=== PATIENT | male | born 1955 | race Caucasian/White ===

== ENCOUNTER 2017-01-08 21:03 | Emergency (ER) | payer MEDICARE, MEDICAID ==
[~2017-01-08] VITALS: Ht 172.7 cm; Wt 88.0 kg
[~2017-01-08 21:03] MED LIST: CITA20TA4 PO; DILT240C7 PO; DIPH2%T PO; LORTA5 PO; LOSA50TA PO; METO100T PO; RENATAB5 PO; SENS60TA PO; SEVEL800 PO; TRAZ100 PO
[2017-01-08 21:14] VITALS: BP 125/80; PULSE 129; RESP 18; TEMP 98.5
[2017-01-08] MEDS ORDERED: METOCLOPRAMIDE HCL 10 MG/2 ML VIAL IV PUSH ONE (21:15)
--- NOTE | 2017-01-08 21:17 | PD ---
HPI Chief Complaint: nausea and vomiting Time Seen by Provider: 21:08 Travel History International Travel<30 days: No Contact w/Intl Traveler<30days: No Traveled to known affect area: No History of Present Illness HPI 61-year-old male with history of ESRD on HD (MWF), A. fib, brought in by ambulance from home for evaluation of nausea, vomiting, diarrhea, and A. fib with RVR. Symptoms started this afternoon after dialysis. Patient was given 4 mg of IV Zofran by EMS without improvement in nausea. Emesis and bowel movements are nonbloody. He denies fevers. No chest pain or dyspnea. He is having intermittent epigastric abdominal discomfort, currently no abdominal pain. Reports that 2 days ago, someone he is living with had similar symptoms. PFSH Past Medical History Hx Anticoagulant Therapy: Yes Arthritis: No Asthma: No Atrial Fibrillation: No Autoimmune Disease: No Blood Disorders: No Anxiety: Yes Depression: Yes Heart Rhythm Problems: Yes Cancer: No Cardiovascular Problems: Yes (CVA ,[place]) High Cholesterol: No Chemotherapy: No Chest Pain: No Congestive Heart Failure: Yes COPD: No Cerebrovascular Accident: Yes Dementia: Yes Diabetes: No Dialysis: Yes ([facility]) Diminished Hearing: No Endocrine: No Gastrointestinal Disorders: No GERD: No Glaucoma: No Genitourinary: No Headaches: No Hepatitis: No Hiatal Hernia: No Hypertension: Yes Immune Disorder: No Implanted Vascular Access Dvce: Yes (R ANTERIOR CHEST) Kidney Stones: No Musculoskeletal: No Neurologic: Yes Psychiatric: Yes Reproductive: No Respiratory: Yes Migraines: No Myocardial Infarction: Yes Radiation Therapy: No Renal Failure: Yes Seizures: No Sickle Cell Disease: No Sleep Apnea: No Thyroid Disease: No Ulcer: No Past Surgical History Abdominal Surgery: No AICD: No Arteriovenous Shunt: Yes (Left forearm; AV FISTULA) Body Medical Devices: L AV GRAFT SHUNT - STATES REMOVED 12/01 AND VEIN GRAFT PLACED Cardiac Surgery: No Ear Surgery: No Endocrine Surgery: No Eye Surgery: No Genitourinary Surgery: No Gynecologic Surgery: No Insulin Pump: No Joint Replacement: No Oral Surgery: No Pacemaker: No Thoracic Surgery: No Other Surgery: Yes (lfa shunt, r shoulder surgery) Social History Alcohol Use: No Tobacco Use: No (never) Substance Use: No Allergies-Medications (Allergen,Severity, Reaction): Coded Allergies: Bees (Verified Allergy, Severe, Anaphylaxis, 01/08/17) *MDRO Multi-Drug Resistant Organism (Verified Adverse Reaction, Unknown, ) MRSA (leg/groin abscess) - 2006 *MRSA PCR negative 11/03/15 & 11/05/15. Pt does not require isolation for hx of MDRO prior to 11/05/15.* Uncoded Allergies: Contac cold medicine (Allergy, Severe, Hives, 01/08/17) allergy Reported Meds & Prescriptions Reported Meds & Active Scripts Active Zofran Odt (Ondansetron Odt) 4 Mg Tab 4 Mg SL Q8HR PRN Reported Diphenhydramine (Diphenhydramine HCl) 25 Mg Cap 25 Mg PO Q12H PRN Trazodone (Trazodone HCl) 100 Mg Tab 200 Mg PO HS PRN Sensipar (Cinacalcet) 60 Mg Tab 120 Mg PO HS Renvela (Sevelamer Carbonate) 800 Mg Tab 800 Mg PO TID Jennifer-Phani (B-Complex W/ C & Folic Acid) 1 Tab 1 Tab PO DAILY Lopressor (Metoprolol Tartrate) 100 Mg Tab 100 Mg PO BID Losartan (Losartan Potassium) 50 Mg Tab 50 Mg PO DAILY Diltiazem ER 12 HR (Diltiazem HCl) 120 Mg Caper 240 Mg PO DAILY Citalopram (Citalopram Hydrobromide) 20 Mg Tab 20 Mg PO DAILY Review of Systems Except as stated in HPI: all other systems reviewed are Neg Physical Exam Narrative GENERAL: Well-developed, well-nourished, comfortable, no acute distress. SKIN: Focused skin assessment warm/dry. HEAD: Atraumatic. Normocephalic. EYES: Pupils equal and round. No scleral icterus. No injection or drainage. ENT: No nasal bleeding or discharge. Mucous membranes pink and dry. NECK: Trachea midline. No JVD. CARDIOVASCULAR: Irregularly irregular, tachycardic. Left upper arm dialysis fistula with thrill and bruit. RESPIRATORY: No accessory muscle use. Clear to auscultation. Breath sounds equal bilaterally. GASTROINTESTINAL: Abdomen soft, non-tender, nondistended. Normal bowel sounds. MUSCULOSKELETAL: No obvious deformities. No clubbing. No cyanosis. No edema. NEUROLOGICAL: Awake and alert. No obvious cranial nerve deficits. Motor grossly within normal limits. Normal speech. PSYCHIATRIC: Appropriate mood and affect; insight and judgment normal. Data Data Last Documented VS Vital Signs Date Time Temp Pulse Resp B/P Pulse Ox O2 Delivery O2 Flow Rate FiO2 01/08/17 22:50 105 16 134/77 99 Nasal Cannula 2 01/08/17 21:14 98.5 Orders Complete Blood Count With Diff (01/08/17 21:12) Comprehensive Metabolic Panel (01/08/17 21:12) Lipase (01/08/17 21:12) Prothrombin Time / Inr (Pt) (01/08/17 21:12) Act Partial Throm Time (Ptt) (01/08/17 21:12) Iv Access Insert/Monitor (01/08/17 21:12) Ecg Monitoring (01/08/17 21:12) Oximetry (01/08/17 21:12) Sodium Chloride 0.9% Flush (Ns Flush) (01/08/17 21:15) Electrocardiogram (01/08/17 21:12) Metoclopramide Inj (Reglan Inj) (01/08/17 21:15) Influenzae A/B Antigen (01/08/17 21:13) Diltiazem Inj (Cardizem Inj) (01/08/17 21:45) Diltiazem Inj (Cardizem Inj) (01/08/17 22:45) Diltiazem Cd (Cardizem Cd) (01/08/17 23:45) Diltiazem Inj (Cardizem Inj) (01/09/17 00:15) Sodium Polysty Sulfate Liq (Kayexalate L (01/09/17 01:30) Labs Laboratory Tests Test 01/08/17 01/09/17 22:05 00:12 White Blood Count 15.5 TH/MM3 Red Blood Count 5.14 MIL/MM3 Hemoglobin 15.0 GM/DL Hematocrit 46.5 % Mean Corpuscular Volume 90.4 FL Mean Corpuscular Hemoglobin 29.1 PG Mean Corpuscular Hemoglobin 32.2 % Concent Red Cell Distribution Width 16.2 % Platelet Count 251 TH/MM3 Mean Platelet Volume 7.3 FL Neutrophils (%) (Auto) 93.3 % Lymphocytes (%) (Auto) 0.8 % Monocytes (%) (Auto) 4.1 % Eosinophils (%) (Auto) 0.9 % Basophils (%) (Auto) 0.9 % Neutrophils # (Auto) 14.5 TH/MM3 Lymphocytes # (Auto) 0.1 TH/MM3 Monocytes # (Auto) 0.6 TH/MM3 Eosinophils # (Auto) 0.1 TH/MM3 Basophils # (Auto) 0.1 TH/MM3 CBC Comment DIFF FINAL Differential Comment Prothrombin Time 12.7 SEC Prothromb Time International 1.1 RATIO Ratio Activated Partial 26.7 SEC Thromboplast Time Sodium Level 136 MEQ/L Potassium Level 6.1 MEQ/L Chloride Level 101 MEQ/L Carbon Dioxide Level 25.5 MEQ/L Anion Gap 10 MEQ/L Blood Urea Nitrogen 22 MG/DL Creatinine 6.86 MG/DL Estimat Glomerular Filtration 8 ML/MIN Rate Random Glucose 98 MG/DL Calcium Level 9.0 MG/DL Total Bilirubin 0.7 MG/DL Aspartate Amino Transf 10 U/L (AST/SGOT) Alanine Aminotransferase 23 U/L (ALT/SGPT) Alkaline Phosphatase 144 U/L Total Protein 9.0 GM/DL Albumin 4.0 GM/DL Lipase 209 U/L [facility] Medical Decision Making Medical Screen Exam Complete: Yes Emergency Medical Condition: Yes Differential Diagnosis Gastric gastritis, enteritis, A. fib RVR, metabolic abnormality Narrative Course Initial vital signs show heart rate 129, blood pressure 125/80, pulse ox 98% on room air, oral temp of 98.5F. CBC shows WBC 15.5, hemoglobin 15, hematocrit 46.5, platelets 251, neutrophils 93.3%. CMP is remarkable for potassium 6.1, BUN 22, creatinine 6.86, GFR 8, otherwise unremarkable. Patient was given 3 doses of 10 mg of IV Cardizem each time with a transient improvement in heart rate. After the third dose he was given a dose of oral long-acting Cardizem after his nausea was controlled with Reglan. Patient was made aware of all findings. He states he is feeling much improved. I told him I would like to admit him for further treatment of his hyperkalemia and A. fib with RVR with acute on chronic renal insufficiency. The patient is adamant that he does not wish to stay in the hospital. He would like to leave AMA. He has the capacity to make the decision to leave AMA. He understands that there are risks to leaving AMA including but not limited to , cardiac arrest, permanent disability. He is willing to take these risks. He was told that he could return to the emergency department at any time and should return should he have any concerning symptoms. PMD follow-up this week. He was given a dose of kayexylate for his hyperkalemia. AMA: The risks of leaving against medical advice without further evaluation treatment were discussed with the patient. These risks include cardiac dysfunction, cardiac dysrhythmia, possible heart attack, possible stroke or . The patient indicated understanding of these risks and appeared to have the capacity to make this decision. Diagnosis Primary Impression: Left against medical advice Additional Impressions: Nausea and vomiting Qualified Code: R11.2 - Non-intractable vomiting with nausea, unspecified vomiting type Hyperkalemia Chronic renal insufficiency Qualified Code: N18.9 - Chronic renal insufficiency, unspecified stage Atrial fibrillation with RVR Referrals: Primary Care Physician 1 day Additional Instructions: Follow-up with your primary care physician this week. Follow-up with your regularly scheduled dialysis. Return to the emergency department for worsening symptoms or any other concerns as discussed. Scripts Ondansetron Odt (Zofran Odt)4 Mg Tab4 Mg SL Q8HR PRN (Nausea/Vomiting) #30 TAB Ref 0 Prov:Tobi Cordova MD 01/09/17 Disposition: 01 DISCHARGE HOME Condition: Tobi Capps MD Jan 08, 2017 21:16 Disposition: 01 DISCHARGE HOME Condition: Tobi Capps MD Jan 08, 2017 21:16
[2017-01-08] MEDS ORDERED: DILTIAZEM HCL 25 MG/5 ML VIAL IV ONE ×2 (21:45→22:45)
[2017-01-08] MEDS: SODIUM CHLORIDE 0.9% FLUSH 10 ML FLUSH IV FLUSH PRN (22:03)
[2017-01-08 22:05] VITALS: PULSE 122; RESP 20; O2SAT 98
[2017-01-08 22:24] LABS: AUTOMATED NEUTROPHIL # 14.5 TH/MM3 (1.8-7.7); BASOPHIL # 0.1 TH/MM3 (0-0.2); BASOPHIL % 0.9 % (0.0-2.0); EOSINOPHIL # 0.1 TH/MM3 (0-0.4); EOSINOPHIL % 0.9 % (0.0-4.0); HEMATOCRIT 46.5 % (39.0-51.0); HEMO FLAGS DIFF FINAL; LYMPH % 0.8 % (9.0-44.0); LYMPHOCYTE # 0.1 TH/MM3 (1.0-4.8); MEAN CELL VOLUME 90.4 FL (80.0-100.0); MEAN CORPUSCULAR HEMOGLOBIN 29.1 PG (27.0-34.0); MEAN CORPUSCULAR HGB CONC 32.2 % (32.0-36.0); MONO % 4.1 % (0.0-8.0); NEUT % 93.3 % (16.0-70.0); PLATELET COUNT 251 TH/MM3 (150-450); RED BLOOD COUNT 5.14 MIL/MM3 (4.50-5.90); RED CELL DISTRIBUTION WIDTH 16.2 % (11.6-17.2); WHITE BLOOD COUNT 15.5 TH/MM3 (4.0-11.0)
[2017-01-08 22:34] LABS: APTT (PATIENT) 26.7 SEC (24.3-30.1); INTERNATIONAL NORMALIZED RATIO 1.1 RATIO; PROTHROMBIN TIME - PATIENT 12.7 SEC (9.8-11.6)
[2017-01-08 22:50] VITALS: BP 134/77; PULSE 105; RESP 16; O2SAT 99
[2017-01-08] MEDS ORDERED: DILTIAZEM-CD 240 MG CAP ER PO ONE (23:45)
[2017-01-09] MEDS ORDERED: DILTIAZEM HCL 25 MG/5 ML VIAL IV ONE (00:15)
[2017-01-09] MEDS: SODIUM CHLORIDE 0.9% FLUSH 10 ML FLUSH IV FLUSH PRN (00:18)
[2017-01-09 00:56] LABS: ANION GAP 10 MEQ/L (5-15); AST (GOT) 10 U/L (15-37); BICARBONATE 25.5 MEQ/L (21.0-32.0); BLOOD UREA NITROGEN 22 MG/DL (7-18); CHLORIDE 101 MEQ/L (98-107); GLOMERULAR FILTRATION RATE 8 ML/MIN (>89); POTASSIUM 6.1 MEQ/L (3.5-5.1); SODIUM (NA) 136 MEQ/L (136-145)
[2017-01-09 00:59] LABS: ALKALINE PHOSPHATASE 144 U/L (45-117); ALT (GPT) 23 U/L (12-78); TOTAL BILIRUBIN ADULT 0.7 MG/DL (0.2-1.0)
[2017-01-09] MEDS ORDERED: ZOFR4TAB3 SL (01:27)
[2017-01-09] MEDS ORDERED: SODIUM POLYSTYRENE SULFONATE SUSP 15 GM/60 ML CUP PO ONE (01:30)
[2017-01-09] MEDS ORDERED: CITA20TA4 PO (02:03)
[2017-01-09] MEDS ORDERED: TRAZ100T4 PO (02:03)
[2017-01-09] MEDS ORDERED: RENATAB5 PO (02:03)
[2017-01-09] MEDS ORDERED: DILT120C9 PO (02:03)
[2017-01-09] MEDS ORDERED: SENS60TA PO (02:03)
[2017-01-09] MEDS ORDERED: DIPH25CA PO (02:03)
[2017-01-09] MEDS ORDERED: SEVEL800 PO (02:03)
[2017-01-09] MEDS ORDERED: METO-338 PO (02:03)
[2017-01-09] MEDS ORDERED: LOSA50TA PO (02:03)
--- NOTE | 2017-01-10 16:02 | EKG ---
Date Performed: 01/08/2017 Time Performed: 22:29:53 PTAGE: 61 years EKG: ATRIAL FIBRILLATION WITH RAPID VENTRICULAR RESPONSE BORDERLINE RIGHT AXIS DEVIATION NONSPEC IFIC ST & T-WAVE ABNORMALITY When compared to previous tracing, ventricular response atrial Fibrillat ion is faster, ST-T changes slightly more prominant. ABNORMAL RHYTHM ECG PREVIOUS TRACING : 12/05/2015 11.17 DOCTOR: Raffaele Land Interpretating Date/Time 01/10/2017 16:01:38
== END 2017-01-09 02:55 | disposition left against medical advice (07) ==
LOC: NEPC 21:03
DX: R11.2 Nausea with vomiting, unspecified (principal); E87.5 Hyperkalemia; N18.9 Chronic kidney disease, unspecified; I48.91 Unspecified atrial fibrillation; R19.7 Diarrhea, unspecified; F41.9 Anxiety disorder, unspecified; I50.9 Heart failure, unspecified; Z86.73 Personal history of transient ischemic attack (TIA), and cerebral infarction without residual deficits; F03.90 Unspecified dementia, unspecified severity, without behavioral disturbance, psychotic disturbance, mood disturbance, and anxiety; I12.0 Hypertensive chronic kidney disease with stage 5 chronic kidney disease or end stage renal disease; I25.2 Old myocardial infarction; R94.31 Abnormal electrocardiogram [ECG] [EKG]
CPT/HCPCS: 80053; 83690; 85025; 85610; 85730; 87804; 93005; 96374; 96375; 96376; 99284; J2765

== ENCOUNTER 2017-02-08 16:35 | Inpatient (IN) | payer MEDICARE, MEDICAID ==
[~2017-02-08] VITALS: Ht 165.1 cm; Wt 87.5 kg
[~2017-02-08 16:35] MED LIST changes: +DILT120C9 PO; -DILT240C7 PO; -DIPH2%T PO; +DIPH25CA PO; -LORTA5 PO; +METO-338 PO; -METO100T PO; -TRAZ100 PO; +TRAZ100T4 PO; +ZOFR4TAB3 SL
[2017-02-08 17:31] VITALS: BP 101/61; PULSE 52; RESP 16; TEMP 98; O2SAT 95
[2017-02-08] MEDS ORDERED: SODIUM CHLOR 0.9% 1000 ML INJ 1,000 ML IV SCH (18:08)
--- NOTE | 2017-02-08 18:39 | PD ---
HPI Chief Complaint: Abdominal Pain Time Seen by Provider: 18:36 Travel History International Travel<30 days: No Contact w/Intl Traveler<30days: No Traveled to known affect area: No History of Present Illness HPI 61-year-old male that presents to the ED for evaluation of nausea and vomiting. Patient has had nausea and vomiting for the past day. Patient has a history of ESRD getting hemodialysis every Wednesday and Wednesday. Patient in our receive his dialysis today secondary to not feeling well. He denies any abdominal pain. Per patient he did something for his nausea with no relief. Denies any abdominal pain. No diarrhea. No chest pain or shortness of breath. Per patient his main symptom is the vomiting. History of MRSA. Denies any fevers chills or sweats. No other medical issues at this time. He states compliance with medications. Again patient denies any pain of any kind. PFSH Past Medical History Hx Anticoagulant Therapy: Yes Arthritis: No Asthma: No Atrial Fibrillation: Yes Autoimmune Disease: No Blood Disorders: No Anxiety: Yes Depression: Yes Heart Rhythm Problems: Yes Cancer: No Cardiovascular Problems: Yes (CVA ,[place]) High Cholesterol: No Chemotherapy: No Chest Pain: No Congestive Heart Failure: Yes COPD: No Cerebrovascular Accident: Yes Dementia: Yes Diabetes: No Dialysis: Yes ([facility]) Diminished Hearing: No Endocrine: No Gastrointestinal Disorders: No GERD: No Glaucoma: No Genitourinary: No Headaches: No Hepatitis: No Hiatal Hernia: No Hypertension: Yes Immune Disorder: No Implanted Vascular Access Dvce: Yes (R ANTERIOR CHEST) Kidney Stones: No Musculoskeletal: No Neurologic: Yes Psychiatric: Yes Reproductive: No Respiratory: Yes Migraines: No Myocardial Infarction: Yes Radiation Therapy: No Renal Failure: Yes Seizures: No Sickle Cell Disease: No Sleep Apnea: No Thyroid Disease: No Ulcer: No Past Surgical History Abdominal Surgery: No AICD: No Arteriovenous Shunt: Yes (Left forearm; AV FISTULA) Body Medical Devices: L AV GRAFT SHUNT - STATES REMOVED 12/01 AND VEIN GRAFT PLACED Cardiac Surgery: No Ear Surgery: No Endocrine Surgery: No Eye Surgery: No Genitourinary Surgery: No Gynecologic Surgery: No Insulin Pump: No Joint Replacement: No Oral Surgery: No Pacemaker: No Thoracic Surgery: No Other Surgery: Yes (lfa shunt, r shoulder surgery, vas cath to upper right chest) Social History Alcohol Use: Yes (1 beer every 6 months) Tobacco Use: No (never) Substance Use: No Allergies-Medications (Allergen,Severity, Reaction): Coded Allergies: Bees (Verified Allergy, Severe, Anaphylaxis, 02/08/17) *MDRO Multi-Drug Resistant Organism (Verified Adverse Reaction, Unknown, ) MRSA (leg/groin abscess) - 2006 *MRSA PCR negative 11/03/15 & 11/05/15. Pt does not require isolation for hx of MDRO prior to 11/05/15.* Uncoded Allergies: Contac cold medicine (Allergy, Severe, Hives, 01/08/17) allergy Reported Meds & Prescriptions Reported Meds & Active Scripts Active Zofran Odt (Ondansetron Odt) 4 Mg Tab 4 Mg SL Q8HR PRN Reported Diphenhydramine (Diphenhydramine HCl) 25 Mg Cap 25 Mg PO Q12H PRN Trazodone (Trazodone HCl) 100 Mg Tab 200 Mg PO HS PRN Sensipar (Cinacalcet) 60 Mg Tab 120 Mg PO HS Renvela (Sevelamer Carbonate) 800 Mg Tab 800 Mg PO TID Jennifer-Phani (B-Complex W/ C & Folic Acid) 1 Tab 1 Tab PO DAILY Lopressor (Metoprolol Tartrate) 100 Mg Tab 100 Mg PO BID Losartan (Losartan Potassium) 50 Mg Tab 50 Mg PO DAILY Diltiazem ER 12 HR (Diltiazem HCl) 120 Mg Caper 240 Mg PO DAILY Citalopram (Citalopram Hydrobromide) 20 Mg Tab 20 Mg PO DAILY Review of Systems Except as stated in HPI: all other systems reviewed are Neg Physical Exam Narrative GENERAL: SKIN: Warm and dry. Patient has a patent fistula on the left arm. HEAD: Atraumatic. Normocephalic. EYES: Pupils equal and round. No scleral icterus. No injection or drainage. ENT: No nasal bleeding or discharge. Mucous membranes pink and moist. Tongue is midline. No uvula deviation. NECK: Trachea midline. No JVD. CARDIOVASCULAR: Regular rate and rhythm. No murmurs, S3, S4. RESPIRATORY: No accessory muscle use. Clear to auscultation. Breath sounds equal bilaterally. GASTROINTESTINAL: Abdomen soft, non-tender, nondistended. Hepatic and splenic margins not palpable. MUSCULOSKELETAL: Extremities without clubbing, cyanosis, or edema. No obvious deformities. Full range of motion of the upper and lower extremities bilaterally. 2+ pulses bilaterally. NEUROLOGICAL: Awake and alert. No obvious cranial nerve deficits. Motor grossly within normal limits. Five out of 5 muscle strength in the arms and legs. Normal speech. PSYCHIATRIC: Appropriate mood and affect; insight and judgment normal. Data Data Last Documented VS Vital Signs Date Time Temp Pulse Resp B/P Pulse Ox O2 Delivery O2 Flow Rate FiO2 02/08/17 17:31 98.0 52 16 101/61 95 Room Air Orders Complete Blood Count With Diff (02/08/17 18:08) Comprehensive Metabolic Panel (02/08/17 18:08) Lipase (02/08/17 18:08) Lactic Acid (02/08/17 18:08) Urinalysis - C+S If Indicated (02/08/17 18:08) Iv Access Insert/Monitor (02/08/17 18:08) Ecg Monitoring (02/08/17 18:08) Oximetry (02/08/17 18:08) Sodium Chlor 0.9% 1000 Ml Inj (Ns 1000 M (02/08/17 18:08) Prothrombin Time / Inr (Pt) (02/08/17 18:08) Act Partial Throm Time (Ptt) (02/08/17 18:08) MDM Medical Decision Making Medical Screen Exam Complete: Yes Emergency Medical Condition: Yes Medical Record Reviewed: Yes Differential Diagnosis Nausea versus vomit versus electrolyte abnormality versus kidney failure versus CHF versus abdominal pain Narrative Course 61-year-old male that presents to the ED for evaluation of nausea and vomiting. Patient was properly examined and was found to have signs and symptoms consistent with nausea and vomiting. Unclear etiology. Labs and imaging ordered. Patient will be signed out to incoming provider pending disposition and treatment plan. Westley Zepeda February 08, 2017 18:39
[2017-02-08 18:55] LABS: AUTOMATED NEUTROPHIL # 7.2 TH/MM3 (1.8-7.7); BASOPHIL % 0.4 % (0.0-2.0); EOSINOPHIL % 0.2 % (0.0-4.0); HEMO FLAGS DIFF FINAL; LYMPH % 8.9 % (9.0-44.0); LYMPHOCYTE # 0.8 TH/MM3 (1.0-4.8); MEAN CELL VOLUME 91.1 FL (80.0-100.0); MEAN CORPUSCULAR HEMOGLOBIN 29.6 PG (27.0-34.0); MEAN CORPUSCULAR HGB CONC 32.5 % (32.0-36.0); MONO % 8.5 % (0.0-8.0); PLATELET COUNT 201 TH/MM3 (150-450); RED CELL DISTRIBUTION WIDTH 17.3 % (11.6-17.2); WHITE BLOOD COUNT 8.8 TH/MM3 (4.0-11.0)
[2017-02-08 19:19] LABS: APTT (PATIENT) 29.6 SEC (24.3-30.1); INTERNATIONAL NORMALIZED RATIO 1.5 RATIO; PROTHROMBIN TIME - PATIENT 16.9 SEC (9.8-11.6)
[2017-02-08 19:28] LABS: ALKALINE PHOSPHATASE 122 U/L (45-117); ALT (GPT) 70 U/L (12-78); ANION GAP 15 MEQ/L (5-15); AST (GOT) 69 U/L (15-37); BLOOD UREA NITROGEN 50 MG/DL (7-18); CHLORIDE 96 MEQ/L (98-107); GLOMERULAR FILTRATION RATE 5 ML/MIN (>89); POTASSIUM 6.4 MEQ/L (3.5-5.1); SODIUM (NA) 134 MEQ/L (136-145)
[2017-02-08 19:32] VITALS: BP 106/59; PULSE 59; RESP 20; TEMP 97.6; O2SAT 97
[2017-02-08] MEDS ORDERED: DEXTROSE 50% IN WATER 50 ML SYRINGE IV ONE (20:15)
[2017-02-08] MEDS ORDERED: INSULIN HUMAN REGULAR 1,000 UNITS/10 ML VIAL IV PUSH ONE (20:15)
[2017-02-08] MEDS ORDERED: RESP: ALBUTEROL 2.5 MG/3 ML NEB (SCH) NEB ONE (20:15)
--- NOTE | 2017-02-08 20:16 | RADRPT ---
EXAM DATE/TIME: 02/08/2017 20:13 [facility] COMPARISON: CHEST SINGLE AP, October 27, 2014, 17:20. INDICATIONS : Short of breath. MEDICAL HISTORY : Hypertension. SURGICAL HISTORY : AV fistula, left. Shoulder, right. ENCOUNTER: Initial ACUITY: 1 day PAIN SCORE: 0/10 LOCATION: Bilateral chest FINDINGS: A single view of the chest demonstrates cardiomegaly with central pulmonary vascular congestion. No c onsolidation or pleural effusion. Osseous structures are intact. CONCLUSION: Cardiomegaly with central pulmonary vascular congestion. Sacha Kumar MD on February 08, 2017 at 20:14 Board Certified Radiologist. This report was verified electronically.
[2017-02-08 20:22] VITALS: O2SAT 99
[2017-02-08] MEDS ORDERED: CALCIUM GLUCONATE INJ 1 GM in DEXTROSE 5% IN WATER 100ML INJ 100 ML IV ONE ×2 (20:45)
--- NOTE | 2017-02-08 21:17 | RADRPT ---
EXAM DATE/TIME: 02/08/2017 21:06 [facility] COMPARISON: No previous studies available for comparison. INDICATIONS : Upper quadrant pain with nausea. ORAL CONTRAST: No oral contrast ingested. RADIATION DOSE: 15.87 CTDIvol (mGy) MEDICAL HISTORY : Hypertension. Myocardial infarction. Congestive heart failure.CVA. Renal failure. Dialysis. SURGICAL HISTORY : None. ENCOUNTER: Initial ACUITY: 1 day PAIN SCALE: 5/10 LOCATION: Bilateral upper quadrant TECHNIQUE: Volumetric scanning of the abdomen and pelvis was performed. Using automated exposure control and ad justment of the mA and/or kV according to patient size, radiation dose was kept as low as reasonably achievable to obtain optimal diagnostic quality images. FINDINGS: LOWER LUNGS: The visualized lower lungs are clear. Cardiomegaly with coronary artery calcifications. LIVER: Homogeneous density without lesion. There is no dilation of the biliary tree. Multiple calcified gal lstones. Small amount of abdominal ascites. SPLEEN: Normal size without lesion. PANCREAS: Within normal limits. KIDNEYS: Multicystic renal disease. Numerous calcifications are present. There is no mass or hydronephrosis. ADRENAL GLANDS: Within normal limits. VASCULAR: There is no aortic aneurysm. BOWEL/MESENTERY: The stomach, small bowel, and colon demonstrate no acute abnormality. There is no free intraperitone al air or fluid. ABDOMINAL WALL: Within normal limits. RETROPERITONEUM: There is no lymphadenopathy. BLADDER: No wall thickening or mass. REPRODUCTIVE: Within normal limits. INGUINAL: There is no lymphadenopathy or hernia. MUSCULOSKELETAL: Within normal limits for patient age. CONCLUSION: 1. Multiple gallstones. 2. Small amount of abdominal ascites. 3. Multicystic renal disease. Sacha Kumar MD on February 08, 2017 at 21:12 Board Certified Radiologist. This report was verified electronically.
--- NOTE | 2017-02-08 23:02 | PD ---
Physical Exam Narrative Patient is a 61-year-old male who comes in complaining of nausea and vomiting. He has history of end-stage renal disease, normally dilated Wednesday, Wednesday, Wednesday. He missed dialysis today due to his nausea and vomiting. He was originally seen in triage by the PA where his workup was started. Data Data Last Documented VS Vital Signs Date Time Temp Pulse Resp B/P Pulse Ox O2 Delivery O2 Flow Rate FiO2 02/08/17 20:22 99 21 02/08/17 19:32 97.6 59 20 106/59 02/08/17 17:31 Room Air Orders Complete Blood Count With Diff (02/08/17 18:08) Comprehensive Metabolic Panel (02/08/17 18:08) Lipase (02/08/17 18:08) Lactic Acid (02/08/17 18:08) Urinalysis - C+S If Indicated (02/08/17 18:08) Iv Access Insert/Monitor (02/08/17 18:08) Ecg Monitoring (02/08/17 18:08) Oximetry (02/08/17 18:08) Sodium Chlor 0.9% 1000 Ml Inj (Ns 1000 M (02/08/17 18:08) Prothrombin Time / Inr (Pt) (02/08/17 18:08) Act Partial Throm Time (Ptt) (02/08/17 18:08) Electrocardiogram (02/08/17 ) Chest, Single Ap (02/08/17 ) Insulin Human Regular Inj (Novolin R Inj (02/08/17 20:15) Dextrose 50% In Bess (Syr) Inj (D50w (Syr (02/08/17 20:15) Albuterol Neb (Albuterol Neb) (02/08/17 20:15) Ct Abd/Pel W/O Iv Contrast (02/08/17 ) Calcium Gluconate Inj (Calcium Gluconate (02/08/17 20:45) Admit Order (Ed Use Only) (02/08/17 ) Labs Laboratory Tests Test 02/08/17 18:20 White Blood Count 8.8 TH/MM3 Red Blood Count 4.50 MIL/MM3 Hemoglobin 13.3 GM/DL Hematocrit 41.0 % Mean Corpuscular Volume 91.1 FL Mean Corpuscular Hemoglobin 29.6 PG Mean Corpuscular Hemoglobin 32.5 % Concent Red Cell Distribution Width 17.3 % Platelet Count 201 TH/MM3 Mean Platelet Volume 7.9 FL Neutrophils (%) (Auto) 82.0 % Lymphocytes (%) (Auto) 8.9 % Monocytes (%) (Auto) 8.5 % Eosinophils (%) (Auto) 0.2 % Basophils (%) (Auto) 0.4 % Neutrophils # (Auto) 7.2 TH/MM3 Lymphocytes # (Auto) 0.8 TH/MM3 Monocytes # (Auto) 0.7 TH/MM3 Eosinophils # (Auto) 0.0 TH/MM3 Basophils # (Auto) 0.0 TH/MM3 CBC Comment DIFF FINAL Differential Comment Prothrombin Time 16.9 SEC Prothromb Time International 1.5 RATIO Ratio Activated Partial 29.6 SEC Thromboplast Time Sodium Level 134 MEQ/L Potassium Level 6.4 MEQ/L Chloride Level 96 MEQ/L Carbon Dioxide Level 23.0 MEQ/L Anion Gap 15 MEQ/L Blood Urea Nitrogen 50 MG/DL Creatinine 10.73 MG/DL Estimat Glomerular Filtration 5 ML/MIN Rate Random Glucose 91 MG/DL Lactic Acid Level 3.8 mmol/L Calcium Level 8.0 MG/DL Total Bilirubin 1.0 MG/DL Aspartate Amino Transf 69 U/L (AST/SGOT) Alanine Aminotransferase 70 U/L (ALT/SGPT) Alkaline Phosphatase 122 U/L Total Protein 7.2 GM/DL Albumin 3.3 GM/DL Lipase 133 U/L [facility] Supervised Visit with MESFIN: No Narrative Course Exam shows no tenderness to the abdomen, it is soft and bowel sounds are present. Patient has several excoriations and scabs on his skin from scratching. Labs are concerning for an elevated creatinine to 10.7 as well as elevated potassium to 6.4. Patient treated with calcium gluconate, insulin, dextrose, albuterol. Kayexalate was held. Chest x-ray shows evidence of fluid overload. I spoke with Dr. Chisholm of nephrology who will arrange for dialysis. Patient was given Zofran for vomiting. We'll be placed in observation for further management. Diagnosis Primary Impression: Nausea and vomiting Qualified Code: R11.2 - Non-intractable vomiting with nausea, unspecified vomiting type Additional Impressions: Fluid overload Qualified Code: E87.70 - Hypervolemia, unspecified hypervolemia type Hyperkalemia Admitting Information Admitting Physician Requests: Observation Condition: Stable Gershen,Apple B MD February 08, 2017 23:02
[2017-02-08] MEDS ORDERED: ACETAMINOPHEN 325 MG TAB PO PRN ×2 (23:15→23:30)
[2017-02-08] MEDS ORDERED: SENNOSIDES 8.6 MG TAB PO PRN (23:15)
[2017-02-08] MEDS ORDERED: ONDANSETRON HCL 4 MG/2 ML VIAL IVP PRN (23:15)
[2017-02-08] MEDS ORDERED: NALOXONE HCL 0.4 MG/ML AMP IV PRN (23:15)
[2017-02-08] MEDS ORDERED: HEPARIN SODIUM - SQ 10,000 UNITS/ML VIAL SQ SCH (23:15)
[2017-02-08] MEDS ORDERED: SODIUM CHLORIDE 0.9% FLUSH 10 ML FLUSH IV FLUSH PRN ×2 (23:15→23:30)
[2017-02-08] MEDS ORDERED: GELATIN 12 MM/7 MM FOAM TOPICAL PRN (23:30)
[2017-02-08] MEDS ORDERED: diphenhydrAMINE HCL 25 MG CAP PO PRN (23:30)
[2017-02-08] MEDS ORDERED: NS 250 ML IV PRN (23:30)
[2017-02-08] MEDS ORDERED: HEPARIN SODIUM - IV 10,000 UNITS/10 ML VIAL IV FLUSH PRN (23:30)
[2017-02-08] MEDS ORDERED: NITROGLYCERIN 0.4 MG SL 25 TABS/BTL SL PRN (23:30)
[2017-02-08] MEDS ORDERED: SODIUM CHLOR 0.9% 1000 ML IV PRN ×2 (23:30)
[2017-02-08] MEDS ORDERED: ONDANSETRON HCL 4 MG/2 ML VIAL IV PRN (23:30)
[2017-02-08] MEDS ORDERED: cloNIDine HCL 0.1 MG TAB PO PRN (23:30)
[2017-02-08] MEDS ORDERED: ALBUMIN HUMAN 25% 25 GM/100 ML BAGP IV PRN (23:30)
[2017-02-08] MEDS ORDERED: GENTAMICIN SULFATE (DIALYSIS USE ONLY) 20 MG/2 ML VIAL OTHER PRN (23:30)
[2017-02-08] MEDS ORDERED: HEPARIN SODIUM - IV 10,000 UNITS/10 ML VIAL OTHER PRN (23:30)
[2017-02-08] MEDS ORDERED: MANNITOL 12.5 GM/50 ML VIAL IV PRN (23:30)
[2017-02-09 00:38] VITALS: BP 113/68; PULSE 83; RESP 20; O2SAT 98
[2017-02-09 02:58] LABS: BICARBONATE 25.9 MEQ/L (21.0-32.0); POTASSIUM 4.3 MEQ/L (3.5-5.1)
[2017-02-09 03:45] VITALS: BP 94/74; PULSE 85; RESP 18; TEMP 97.1; O2SAT 95
[2017-02-09 08:00] VITALS: BP 96/66; PULSE 87; RESP 18; TEMP 96.4; O2SAT 94
[2017-02-09] MEDS ORDERED: HEPARIN SODIUM - SQ 10,000 UNITS/ML VIAL SQ SCH (09:00)
[2017-02-09] MEDS ORDERED: SODIUM CHLORIDE 0.9% FLUSH 10 ML FLUSH IV FLUSH SCH (09:00)
--- NOTE | 2017-02-09 09:30 | HHI.HP ---
[facility] Physician Unknown Admission Diagnosis hyperkalemia Diagnoses: (1) Gastroenteritis, acute (2) Gastroenteritis, noninfectious (3) ESRD on hemodialysis (4) Hyperkalemia (5) Hypertension Chief Complaint: Emesis Travel History International Travel<30 Days: No Contact w/Intl Traveler <30 Da: No Traveled to Known Affected Are: No History of Present Illness 61-year-old man with a history of end-stage renal disease on hemodialysis 20 years presented to the ED yesterday for evaluation of an acute onset of to be history of multiple episodes of nonbloody vomiting without any diarrhea. Patient only reported abdominal cramping. He denies any sick contact. Patient had not gone for hemodialysis on Wednesday and was found to have elevated potassium. He was treated in the ED for hyperkalemia and nephrology was consulted and patient underwent hemodialysis yesterday. Today, during my encounter with patient reported improvement of emesis and denies any abdominal cramping. He had no GI bleed. Currently denies any chest pain or shortness of breath. Review of Systems Except as stated in HPI: all other systems reviewed are Neg Past Family Social History Past Medical History Hypertension CAD CHF COPD End-stage renal disease on hemodialysis History of CVAs Past Surgical History AV fistula placement Multiple shoulder procedures Reported Medications Diphenhydramine (Diphenhydramine HCl) 25 Mg Cap 25 Mg PO Q12H PRN Trazodone (Trazodone HCl) 100 Mg Tab 200 Mg PO HS PRN Sensipar (Cinacalcet) 60 Mg Tab 120 Mg PO HS Renvela (Sevelamer Carbonate) 800 Mg Tab 800 Mg PO TID Jennifer-Phani (B-Complex W/ C & Folic Acid) 1 Tab 1 Tab PO DAILY Lopressor (Metoprolol Tartrate) 100 Mg Tab 100 Mg PO BID Losartan (Losartan Potassium) 50 Mg Tab 50 Mg PO DAILY Diltiazem ER 12 HR (Diltiazem HCl) 120 Mg Caper 240 Mg PO DAILY Citalopram (Citalopram Hydrobromide) 20 Mg Tab 20 Mg PO DAILY Allergies: Coded Allergies: Bees (Verified Allergy, Severe, Anaphylaxis, 02/08/17) *MDRO Multi-Drug Resistant Organism (Verified Adverse Reaction, Unknown, ) MRSA (leg/groin abscess) - 2006 *MRSA PCR negative 11/03/15 & 11/05/15. Pt does not require isolation for hx of MDRO prior to 11/05/15.* Uncoded Allergies: Contac cold medicine (Allergy, Severe, Hives, 01/08/17) allergy Family History Father had colon cancer Social History Alcohol Use: Yes (1 beer every 6 months) Tobacco Use: No (never) Substance Use: No Physical Exam Vital Signs Vital Signs Date Time Temp Pulse Resp B/P Pulse Ox O2 Delivery O2 Flow Rate FiO2 02/09/17 08:00 96.4 87 18 96/66 94 02/09/17 03:45 97.1 85 18 94/74 95 02/09/17 00:38 83 20 113/68 98 02/08/17 20:22 99 21 02/08/17 19:32 97.6 59 20 106/59 97 02/08/17 17:31 98.0 52 16 101/61 95 Room Air Physical Exam GENERAL: This is a well-nourished, well-developed patient, in no apparent distress. SKIN: No rashes, ecchymoses or lesions. Cool and dry. HEAD: Atraumatic. Normocephalic. No temporal or scalp tenderness. EYES: Pupils equal round and reactive. Extraocular motions intact. No scleral icterus. No injection or drainage. ENT: Nose without bleeding, purulent drainage or septal hematoma. Throat without erythema, tonsillar hypertrophy or exudate. Uvula midline. Airway patent. NECK: Trachea midline. No JVD or lymphadenopathy. Supple, nontender, no meningeal signs. CARDIOVASCULAR: Regular rate and rhythm without murmurs, gallops, or rubs. RESPIRATORY: Clear to auscultation. Breath sounds equal bilaterally. No wheezes , rales, or rhonchi. GASTROINTESTINAL: Abdomen soft, non-tender, nondistended. No hepato-splenomegaly , or palpable masses. No guarding. MUSCULOSKELETAL: Extremities without clubbing, cyanosis, or edema. No joint tenderness, effusion, or edema noted. No calf tenderness. Negative Homans sign bilaterally. AV fistula in left upper extremity NEUROLOGICAL: Awake and alert. Cranial nerves II through XII intact. Motor and sensory grossly within normal limits. Five out of 5 muscle strength in all muscle groups. Normal speech. Laboratory Laboratory Tests Test 02/08/17 02/09/17 18:20 02:10 White Blood Count 8.8 Red Blood Count 4.50 Hemoglobin 13.3 Hematocrit 41.0 Mean Corpuscular Volume 91.1 Mean Corpuscular Hemoglobin 29.6 Mean Corpuscular Hemoglobin 32.5 Concent Red Cell Distribution Width 17.3 Platelet Count 201 Mean Platelet Volume 7.9 Neutrophils (%) (Auto) 82.0 Lymphocytes (%) (Auto) 8.9 Monocytes (%) (Auto) 8.5 Eosinophils (%) (Auto) 0.2 Basophils (%) (Auto) 0.4 Neutrophils # (Auto) 7.2 Lymphocytes # (Auto) 0.8 Monocytes # (Auto) 0.7 Eosinophils # (Auto) 0.0 Basophils # (Auto) 0.0 CBC Comment DIFF FINAL Differential Comment Prothrombin Time 16.9 Prothromb Time International 1.5 Ratio Activated Partial 29.6 Thromboplast Time Sodium Level 134 139 Potassium Level 6.4 4.3 Chloride Level 96 99 Carbon Dioxide Level 23.0 25.9 Anion Gap 15 14 Blood Urea Nitrogen 50 36 Creatinine 10.73 7.93 Estimat Glomerular Filtration 5 7 Rate Random Glucose 91 139 Lactic Acid Level 3.8 Calcium Level 8.0 8.5 Total Bilirubin 1.0 Aspartate Amino Transf 69 (AST/SGOT) Alanine Aminotransferase 70 (ALT/SGPT) Alkaline Phosphatase 122 Total Protein 7.2 Albumin 3.3 Lipase 133 Result Diagram: 02/08/17 1820 02/09/17 0210 Imaging Last Impressions Chest X-Ray 02/08/17 0000 Signed Impressions: Service Date/Time: Wednesday, February 08, 2017 20:13 - CONCLUSION: Cardiomegaly with central pulmonary vascular congestion. Sacha Kumar MD Abdomen/Pelvis CT 02/08/17 0000 Signed Impressions: Service Date/Time: Wednesday, February 08, 2017 21:06 - CONCLUSION: 1. Multiple gallstones. 2. Small amount of abdominal ascites. 3. Multicystic renal disease. Sacha Kumar MD Assessment and Plan Problem List: (1) Gastroenteritis, acute ICD Code: K52.9 Status: Acute (2) Gastroenteritis, noninfectious ICD Code: K52.9 Status: Acute (3) ESRD on hemodialysis ICD Code: N18.6 Status: Chronic (4) Hyperkalemia ICD Code: E87.5 Status: Acute Assessment and Plan 61-year-old man with Gastroenteritis, acute Gastroenteritis, noninfectious CT abdomen noted and review by me with finding of Multiple gallstones. 2. Small amount of abdominal ascites. 3. Multicystic renal disease; therefore will check abdominal/gallbladder ultrasound Resolved, continue with current conservative management End-stage renal disease on hemodialysis Patient had hemodialysis yesterday feb 08 2017, and management per nephrology HD on Wednesday Resume B complex, Sensipar and Renvela Hyperkalemia Resolved s/p treatment Hypertension Hold all oral antihypertensive medications 2/2 soft BP Physician Certification 2 Midnight Certification Type: Admission for Inpatient Services Order for Inpatient Services The services are ordered in accordance with Medicare regulations or non- Medicare payer requirements, as applicable. In the case of services not specified as inpatient-only, they are appropriately provided as inpatient services in accordance with the 2-midnight benchmark. Estimated LOS (days): 2 days is the estimated time the patient will need to remain in the hospital, assuming treatment plan goals are met and no additional complications. Post-Hospital Plan: Not yet determined Sacha Berrios MD February 09, 2017 09:30
[2017-02-09] MEDS ORDERED: METOPROLOL TARTRATE 100 MG TAB PO SCH (09:45)
[2017-02-09] MEDS ORDERED: traZODone HCL 100 MG TAB PO PRN (09:45)
[2017-02-09 09:53] LABS: AUTOMATED NEUTROPHIL # 7.4 TH/MM3 (1.8-7.7); BASOPHIL # 0.1 TH/MM3 (0-0.2); BASOPHIL % 0.6 % (0.0-2.0); EOSINOPHIL # 0.1 TH/MM3 (0-0.4); HEMATOCRIT 39.6 % (39.0-51.0); HEMO FLAGS DIFF FINAL; LYMPH % 9.3 % (9.0-44.0); LYMPHOCYTE # 0.9 TH/MM3 (1.0-4.8); MEAN CELL VOLUME 89.3 FL (80.0-100.0); MEAN CORPUSCULAR HEMOGLOBIN 29.6 PG (27.0-34.0); MEAN CORPUSCULAR HGB CONC 33.1 % (32.0-36.0); NEUT % 81.1 % (16.0-70.0); PLATELET COUNT 180 TH/MM3 (150-450); RED BLOOD COUNT 4.44 MIL/MM3 (4.50-5.90); RED CELL DISTRIBUTION WIDTH 17.1 % (11.6-17.2); WHITE BLOOD COUNT 9.2 TH/MM3 (4.0-11.0)
--- NOTE | 2017-02-09 10:02 | PD.CONS ---
HPI Service Nephrology Consult Requested By Alex Reason for Consult ESRD on HD, Hyperkalemia Primary Care Physician Unknown History of Present Illness This is a 61 y/o male patient with whom we follow in outpatient setting. He normally dialyzes MWF, did not go to treatment yesterday as he had nausea/ vomiting since Wednesday night. He denies eating anything different than usual food. PMH of HTN, metabolic bone disorder, A fib, and CVA. On arrival he was hyperkalemic at 6.4, was treated with IV insulin/dextrose, calcium, and albuterol. He was dialyzed last night and repeat K level is normal. He had a CT that showed multiple non obstrucitng gallstones, denies any GI complaints today. We were consulted for dialysis management. He has AV graft in left arm that functions well. He is a full code. (Chinyere Rdoriguez) Review of Systems Constitutional: DENIES: Fatigue, Fever, Weight gain, Change in appetite Cardiovascular: DENIES: Lower Extremity Edema Gastrointestinal: COMPLAINS OF: Nausea, Vomiting, DENIES: Abdominal pain, Constipation, Diarrhea Genitourinary: DENIES: Urinary frequency, Hematuria Neurologic: DENIES: Headache (Chinyere Rodriguez) Past Family Social History Allergies: Coded Allergies: Bees (Verified Allergy, Severe, Anaphylaxis, 02/08/17) *MDRO Multi-Drug Resistant Organism (Verified Adverse Reaction, Unknown, ) MRSA (leg/groin abscess) - 2006 *MRSA PCR negative 11/03/15 & 11/05/15. Pt does not require isolation for hx of MDRO prior to 11/05/15.* Uncoded Allergies: Contac cold medicine (Allergy, Severe, Hives, 01/08/17) allergy Past Medical History ESRD on HD MWF HTN anemia metabolic bone disorder COPD CHF A fib CVA Depression Developmental disorder Past Surgical History left arm AV graft with revision shoulder Reported Medications Zofran Odt (Ondansetron Odt) 4 Mg Tab 4 Mg SL Q8HR PRN Diphenhydramine (Diphenhydramine HCl) 25 Mg Cap 25 Mg PO Q12H PRN Trazodone (Trazodone HCl) 100 Mg Tab 200 Mg PO HS PRN Sensipar (Cinacalcet) 60 Mg Tab 120 Mg PO HS Renvela (Sevelamer Carbonate) 800 Mg Tab 800 Mg PO TID Jennifer-Phani (B-Complex W/ C & Folic Acid) 1 Tab 1 Tab PO DAILY Lopressor (Metoprolol Tartrate) 100 Mg Tab 100 Mg PO BID Losartan (Losartan Potassium) 50 Mg Tab 50 Mg PO DAILY Diltiazem ER 12 HR (Diltiazem HCl) 120 Mg Caper 240 Mg PO DAILY Citalopram (Citalopram Hydrobromide) 20 Mg Tab 20 Mg PO DAILY Active Ordered Medications Current Medications Medications (Trade) Dose Ordered Sig/Neeraj Route Start Time Stop Time Status Last Admin (NS Flush) 2 ml UNSCH PRN IV FLUSH 02/08/17 23:15 (NS Flush) 2 ml BID IV FLUSH 02/09/17 09:00 (Tylenol) 650 mg Q4H PRN PO 02/08/17 23:15 (Zofran Inj) 4 mg Q6H PRN IVP 02/08/17 23:15 (Senokot) 17.2 mg Q12H PRN PO 02/08/17 23:15 (Narcan Inj) 0.4 mg UNSCH PRN IV 02/08/17 23:15 Heparin Sodium (Porcine) 5000 units 5,000 units Q12H SQ 02/09/17 09:00 (NS 1000 ml Inj) 1,000 ml @ 0 mls/hr TITRATE PRN IV 02/08/17 23:30 02/08/17 23:57 Heparin Sodium (Porcine) 8000 units 8,000 units UNSCH PRN IV FLUSH 02/08/17 23:30 Sodium Chloride 1,000 ml @ 200 mls/hr Q5H PRN IV 02/08/17 23:30 (NS 250 ml Inj) 200 ml @ 0 mls/hr UNSCH PRN IV 02/08/17 23:30 (Mannitol Inj) 12.5 gm UNSCH PRN IV 02/08/17 23:30 (Albumin 25% Inj) 25 gm UNSCH PRN IV 02/08/17 23:30 (NS Flush) 5 ml UNSCH PRN IV FLUSH 02/08/17 23:30 (Heparin Inj) Dwell Heparin to f... UNSCH PRN OTHER 02/08/17 23:30 (Gentamicin (Dialysis) Inj) 10 mg UNSCH PRN OTHER 02/08/17 23:30 (Gelfoam 12 Mm/7 Mm Top) 1 foam UNSCH PRN TOPICAL 02/08/17 23:30 02/08/17 23:57 (Zofran Inj) 4 mg UNSCH PRN IV 02/08/17 23:30 (Benadryl) 25 mg UNSCH PRN PO 02/08/17 23:30 (Nitrostat Sl) 0.4 mg UNSCH PRN SL 02/08/17 23:30 (Catapres) 0.1 mg UNSCH PRN PO 02/08/17 23:30 (CeleXA) 20 mg DAILY PO 02/10/17 09:00 UNV (Cozaar) 50 mg DAILY PO 02/10/17 09:00 UNV (Lopressor) 100 mg BID PO 02/09/17 09:45 UNV (Renvela) 800 mg TID PO 02/09/17 13:00 UNV (Desyrel) 200 mg HS PRN PO 02/09/17 09:45 UNV Non-Formulary Medication 1 tab DAILY PO 02/09/17 09:45 UNV Non-Formulary Medication 120 mg HS PO 02/09/17 21:00 UNV Non-Formulary Medication 240 mg DAILY PO 02/09/17 09:45 UNV Family History no hx of renal impairment Social History resides in Assisted Living no hx of smoking remote hx of ETOH 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 full code (Chinyere Rodriguez) Physical Exam Vital Signs Vital Signs Date Time Temp Pulse Resp B/P Pulse Ox O2 Delivery O2 Flow Rate FiO2 02/09/17 08:00 96.4 87 18 96/66 94 02/09/17 03:45 97.1 85 18 94/74 95 02/09/17 00:38 83 20 113/68 98 02/08/17 20:22 99 21 02/08/17 19:32 97.6 59 20 106/59 97 02/08/17 17:31 98.0 52 16 101/61 95 Room Air Physical Exam Disheveled male, awake/alert no neuro deficit noted S1/S2, irreg irreg, no murmurs lungs clear in all guillen abd round, soft and non tender, no guarding or rebound tenderness extremities: no edema, AV graft in left arm + thrill/bruit Laboratory Laboratory Tests Test 02/08/17 02/09/17 18:20 02:10 White Blood Count 8.8 Red Blood Count 4.50 Hemoglobin 13.3 Hematocrit 41.0 Mean Corpuscular Volume 91.1 Mean Corpuscular Hemoglobin 29.6 Mean Corpuscular Hemoglobin 32.5 Concent Red Cell Distribution Width 17.3 Platelet Count 201 Mean Platelet Volume 7.9 Neutrophils (%) (Auto) 82.0 Lymphocytes (%) (Auto) 8.9 Monocytes (%) (Auto) 8.5 Eosinophils (%) (Auto) 0.2 Basophils (%) (Auto) 0.4 Neutrophils # (Auto) 7.2 Lymphocytes # (Auto) 0.8 Monocytes # (Auto) 0.7 Eosinophils # (Auto) 0.0 Basophils # (Auto) 0.0 CBC Comment DIFF FINAL Differential Comment Prothrombin Time 16.9 Prothromb Time International 1.5 Ratio Activated Partial 29.6 Thromboplast Time Sodium Level 134 139 Potassium Level 6.4 4.3 Chloride Level 96 99 Carbon Dioxide Level 23.0 25.9 Anion Gap 15 14 Blood Urea Nitrogen 50 36 Creatinine 10.73 7.93 Estimat Glomerular Filtration 5 7 Rate Random Glucose 91 139 Lactic Acid Level 3.8 Calcium Level 8.0 8.5 Total Bilirubin 1.0 Aspartate Amino Transf 69 (AST/SGOT) Alanine Aminotransferase 70 (ALT/SGPT) Alkaline Phosphatase 122 Total Protein 7.2 Albumin 3.3 Lipase 133 (Chinyere Rodriguez) Result Diagram: 02/08/17 1820 02/09/17 0210 Imaging Last Impressions Chest X-Ray 02/08/17 0000 Signed Impressions: Service Date/Time: Wednesday, February 08, 2017 20:13 - CONCLUSION: Cardiomegaly with central pulmonary vascular congestion. Sacha Kumar MD Abdomen/Pelvis CT 02/08/17 0000 Signed Impressions: Service Date/Time: Wednesday, February 08, 2017 21:06 - CONCLUSION: 1. Multiple gallstones. 2. Small amount of abdominal ascites. 3. Multicystic renal disease. Sacha Kumar MD (Chinyere Rodriguez) Assessment and Plan Problem List: (1) ESRD on hemodialysis Plan: Continue hemodialysis support MWF, he had 3L fluid removal yesterday electrolyte profile unremarkable no current renal concerns, has AV graft for dialysis renal diet with no protein restriction avoid IVF, gadolinium stable from renal perspective, he is anuric at baseline Epogen not required (2) Nausea and vomiting Plan: gall stones noted on CT, US pending noted lactic acid elevation he reports resolution of symptoms and denies thapa has had BM, eating now without complication continue to monitor (3) Hyperkalemia Plan: given IV calcium, insulin with dextrose, and albuterol; also had dialysis repeat K is normal low K diet discussed monitor for recurrence (4) Hypertension Plan: BP borderline low, monitor and resume antihypertensives when appropriate (5) Metabolic bone disease Plan: on renvela, phos level in process Sensipar is listed on home medication list but not required at this time (6) A-fib Plan: rate controlled, asymptomatic on Cardizem not on anticoagulation per medication list but INR is 1.5 defer management to medical team (Chinyere Rodriguez) Problem List: (1) ESRD on hemodialysis Plan: Continue hemodialysis support MWF, he had 3L fluid removal yesterday electrolyte profile unremarkable no current renal concerns, has AV graft for dialysis renal diet with no protein restriction avoid IVF, gadolinium stable from renal perspective, he is anuric at baseline Epogen not required (2) Nausea and vomiting Plan: gall stones noted on CT, US pending noted lactic acid elevation he reports resolution of symptoms and denies thapa has had BM, eating now without complication continue to monitor (3) Hyperkalemia Plan: given IV calcium, insulin with dextrose, and albuterol; also had dialysis repeat K is normal low K diet discussed monitor for recurrence (4) Hypertension Plan: BP borderline low, monitor and resume antihypertensives when appropriate (5) Metabolic bone disease Plan: on renvela, phos level in process Sensipar is listed on home medication list but not required at this time (6) A-fib Plan: rate controlled, asymptomatic on Cardizem not on anticoagulation per medication list but INR is 1.5 defer management to medical team Assessment and Plan patient was seen and examined. He was dialyzed yesterday. Hyperkalemia has improved. He can be discharged from renal standpoint. (Varun Chisholm MD) Problem Qualifiers (1) Nausea and vomiting: Qualified Code: R11.2 - Non-intractable vomiting with nausea, unspecified vomiting type Chinyere Rodriguez February 09, 2017 10:02 Varun Chisholm MD February 09, 2017 11:49
[2017-02-09 10:05] VITALS: O2SAT 99
[2017-02-09 10:24] LABS: POTASSIUM 4.2 MEQ/L (3.5-5.1)
[2017-02-09] MEDS ORDERED: DILTIAZEM-CD 240 MG CAP ER PO SCH (11:00)
[2017-02-09 12:00] VITALS: BP 116/78; PULSE 84; RESP 18; TEMP 96.9; O2SAT 94
[2017-02-09] MEDS: SEVELAMER CARBONATE 800 MG TAB PO SCH ×2 (13:00→18:51)
--- NOTE | 2017-02-09 15:46 | HHI.PR ---
Addendum to Inpatient Note Addendum Reason: Additional Documentation Additional Information Discharge patient to home Condition on discharge: Improved Regular Diet as tolerated Ad Gaby activity Rx written:none Follow-up with primary care physician 1 week Nephrology for hemodialysis Sacha Berrios MD February 09, 2017 15:45
--- NOTE | 2017-02-09 15:53 | RADRPT ---
EXAM DATE/TIME: 02/09/2017 14:23 [place] COMPARISON: CT ABDOMEN & PELVIS W/O CONTRAST, February 08, 2017, 21:06. INDICATIONS : Right upper quadrant pain. MEDICAL HISTORY : Myocardial infarction. Methicillin-resistant Staphylococcus aureus. Hypertension. CVA. Dementia. CHF. A-fib. SURGICAL HISTORY : Rotator cuff, right. AV shunt. Dialysis. Left leg surgery. ENCOUNTER: Initial ACUITY: 1 day PAIN SCORE: 2/10 LOCATION: Right upper quadrant MEASUREMENTS: LIVER: 15.6 cm length COMMON DUCT: 4 mm RIGHT KIDNEY: 10.1 x 5.0 x 6.7 cm FINDINGS: LIVER: There are punctate ossifications seen throughout the liver most consistent with old granulomatous dis ease. No mass lesion is identified. No intrahepatic biliary ductal dilation is present. There is a sm all amount of ascitic fluid evident adjacent to the liver. COMMON DUCT: No intraluminal mass or stone visualized. GALLBLADDER: The exam demonstrates multiple stones in the dependent portion of the gallbladder. There is mild prom inence of the gallbladder wall but no para cholecystic fluid PANCREAS: The exam demonstrates dilation of the pancreatic duct in the tail and measures approximate 4 mm. RIGHT KIDNEY: There are multiple cysts identified within the right kidney. The largest measures 4.6 x 4.3 x 4.5 cm. CONCLUSION: 1. There are multiple gallstones filling the gallbladder. There is mild thickening of the gallbladder wall but no significant pericholecystic fluid. 2. Multiple cysts identified within the right kidney. 3. Dilation of the pancreatic duct distally. Abdullahi Stevens MD on February 09, 2017 at 15:46 Board Certified Radiologist. This report was verified electronically.
[2017-02-09 15:55] VITALS: BP 114/77; PULSE 111; RESP 18; TEMP 97.3; O2SAT 94
--- NOTE | 2017-02-09 15:56 | EKG ---
Date Performed: 02/08/2017 Time Performed: 20:29:25 PTAGE: 61 years EKG: ATRIAL FIBRILLATION POSSIBLE RIGHT VENTRICULAR HYPERTROPHY MINIMAL ST DEPRESSION PROLONGED QT INTERVAL Compared to the previous tracing ventricular response to atrial fibrillation is slower, Q T interval is longer ABNORMAL ECG PREVIOUS TRACING : 01/08/2017 22.29 DOCTOR: Hao Melendez Interpretating Date/Time 02/09/2017 15:55:06
--- NOTE | 2017-02-09 18:58 | HHI.PR ---
Addendum to Inpatient Note Addendum Reason: Additional Documentation Additional Information Gallbladder ultrasound results were discussed with Dr. Espino, general surgery for an outpatient referral for evaluation for possible elective lap cholecystectomy. This was later discussed with patient as well who is agreeable to follow outpatient with Dr. Espino for further evaluation. We will have [facility] nurse to call patient on discharge to set up appointment Sacha Berrios MD February 09, 2017 18:58
[2017-02-09] MEDS ORDERED: CINACALCET PO SCH (21:00)
[2017-02-10] MEDS ORDERED: VITAMIN B CMPLX/VITC/FOLIC AC CAP PO SCH (09:00)
[2017-02-10] MEDS ORDERED: CITALOPRAM HYDROBROMIDE 20 MG TAB PO SCH (09:00)
[2017-02-10] MEDS ORDERED: LOSARTAN 50 MG TAB PO SCH (09:00)
== END 2017-02-09 20:04 | disposition home or self-care (01) | DRG 444 ==
LOC: NEPC 16:35 → OBSVTOIN 22:38 → NEDA 22:38 → N06B 02-09 03:42
PROVIDERS: ADMIT Hospitalist; ATTEND Hospitalist
PROC: 5A1D00Z (ICD-10-PCS; principal; 2017-02-08)
DX: K80.20 Calculus of gallbladder without cholecystitis without obstruction (principal); N18.6 End stage renal disease; E88.89 Other specified metabolic disorders; I12.0 Hypertensive chronic kidney disease with stage 5 chronic kidney disease or end stage renal disease; I48.91 Unspecified atrial fibrillation; E87.5 Hyperkalemia; J44.9 Chronic obstructive pulmonary disease, unspecified; K52.9 Noninfective gastroenteritis and colitis, unspecified; Z99.2 Dependence on renal dialysis
CPT/HCPCS: 71010; 74176; 76705; 80048; 80053; 83605; 83690; 84100; 85025; 85610; 85730; 90935; 93005; 94664; 96360; 96361; J1644; J7030; J7613

== ENCOUNTER 2017-03-15 14:05 | Inpatient (IN) | payer MEDICARE, MEDICAID ==
[~2017-03-15] VITALS: Ht 172.7 cm; Wt 83.9 kg
[~2017-03-15 14:05] MED LIST changes: -ZOFR4TAB3 SL
[2017-03-15 14:14] VITALS: BP 125/81; PULSE 100; RESP 16; TEMP 97.8; O2SAT 95
[2017-03-15 16:10] VITALS: BP 133/87; PULSE 94; RESP 19; TEMP 97.9; O2SAT 94
[2017-03-15] MEDS ORDERED: ONDANSETRON HCL 4 MG/2 ML VIAL IVP ONE (16:15)
[2017-03-15] MEDS ORDERED: SODIUM CHLORIDE 0.9% FLUSH 10 ML FLUSH IVF PRN (16:15)
--- NOTE | 2017-03-15 16:20 | PD ---
HPI Chief Complaint: GI Complaint Time Seen by Provider: 16:11 Travel History International Travel<30 days: No Contact w/Intl Traveler<30days: No Traveled to known affect area: No History of Present Illness HPI 61 year old male with a PMH of Hypertension, CAD, CHF, COPD, End-stage renal disease on hemodialysis, History of CVAs, atrial fibrillation presents to the emergency department for evaluation of diarrhea for 3 days. He reports 3 episodes today. He also reports nausea and vomiting for the past day. He reports no episodes of nonbloody vomiting today, but nausea. However, the patient is asking for food and water upon arrival to the emergency department. Patient denies any pain. He denies any cough, shortness of breath, chest pain. No abdominal pain. He denies any blood in his stool. 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 His dialysis is Wednesday, Wednesday, Wednesday. However , patient did not go to dialysis today secondary to not feeling well. He reports no other family members are sick. He has no other complaints at this time. PFSH Past Medical History Hx Anticoagulant Therapy: Yes Arthritis: No Asthma: No Atrial Fibrillation: Yes Autoimmune Disease: No Blood Disorders: No Anxiety: Yes Depression: Yes Heart Rhythm Problems: Yes Cancer: No Cardiovascular Problems: Yes (CVA ,[place]) High Cholesterol: No Chemotherapy: No Chest Pain: No Congestive Heart Failure: Yes COPD: No Cerebrovascular Accident: Yes Dementia: Yes Diabetes: No Dialysis: Yes (MWF) Diminished Hearing: No Endocrine: No Gastrointestinal Disorders: No GERD: No Glaucoma: No Genitourinary: No Headaches: No Hepatitis: No Hiatal Hernia: No Hypertension: Yes Immune Disorder: No Implanted Vascular Access Dvce: Yes (R ANTERIOR CHEST) Kidney Stones: No Musculoskeletal: No Neurologic: Yes Psychiatric: Yes Reproductive: No Respiratory: Yes Migraines: No Myocardial Infarction: Yes Radiation Therapy: No Renal Failure: Yes Seizures: No Sickle Cell Disease: No Sleep Apnea: No Thyroid Disease: No Ulcer: No Past Surgical History Abdominal Surgery: No AICD: No Arteriovenous Shunt: Yes (Left forearm; AV FISTULA) Body Medical Devices: L AV GRAFT SHUNT - STATES REMOVED 12/01 AND VEIN GRAFT PLACED Cardiac Surgery: No Ear Surgery: No Endocrine Surgery: No Eye Surgery: No Genitourinary Surgery: No Gynecologic Surgery: No Insulin Pump: No Joint Replacement: No Oral Surgery: No Pacemaker: No Thoracic Surgery: No Other Surgery: Yes (lfa shunt, r shoulder surgery, vas cath to upper right chest) Social History Alcohol Use: Yes (1 beer every 6 months) Tobacco Use: No (never) Substance Use: No Allergies-Medications (Allergen,Severity, Reaction): Coded Allergies: Bees (Verified Allergy, Severe, Anaphylaxis, 03/15/17) *MDRO Multi-Drug Resistant Organism (Verified Adverse Reaction, Unknown, ) MRSA (leg/groin abscess) - 2006 *MRSA PCR negative 11/03/15 & 11/05/15. Pt does not require isolation for hx of MDRO prior to 11/05/15.* Uncoded Allergies: Contac cold medicine (Allergy, Severe, Hives, 01/08/17) allergy Reported Meds & Prescriptions Reported Meds & Active Scripts Active Reported Zofran (Ondansetron HCl) 4 Mg Tab 4 Mg PO Q8HR PRN Diphenhydramine (Diphenhydramine HCl) 25 Mg Cap 25 Mg PO Q12H PRN Sensipar (Cinacalcet) 60 Mg Tab 120 Mg PO HS Renvela (Sevelamer Carbonate) 800 Mg Tab 800 Mg PO TID Jennifer-Phani (B-Complex W/ C & Folic Acid) 1 Tab 1 Tab PO DAILY Lopressor (Metoprolol Tartrate) 100 Mg Tab 100 Mg PO BID Losartan (Losartan Potassium) 50 Mg Tab 50 Mg PO DAILY Diltiazem ER 12 HR (Diltiazem HCl) 120 Mg Caper 240 Mg PO DAILY Citalopram (Citalopram Hydrobromide) 20 Mg Tab 20 Mg PO DAILY Review of Systems Except as stated in HPI: all other systems reviewed are Neg Physical Exam Narrative GENERAL: Well-nourished, well-developed male patient, afebrile. SKIN: Focused skin assessment warm/dry. Patient is left upper arm fistula with positive bruit and thrill. HEAD: Normocephalic. Atraumatic. EYES: No scleral icterus. No injection or drainage. NECK: Supple, trachea midline. No JVD or lymphadenopathy. CARDIOVASCULAR: Regular rate and rhythm without murmurs, gallops, or rubs. RESPIRATORY: Breath sounds equal bilaterally. No accessory muscle use. Lungs sounds with slight expiratory wheezes noted in the bases. GASTROINTESTINAL: Abdomen soft, non-tender, nondistended. MUSCULOSKELETAL: No cyanosis, or edema. BACK: Nontender without obvious deformity. No CVA tenderness. Data Data Last Documented VS Vital Signs Date Time Temp Pulse Resp B/P Pulse Ox O2 Delivery O2 Flow Rate FiO2 03/15/17 19:30 91 16 122/81 98 Room Air 03/15/17 16:10 97.9 Orders Complete Blood Count With Diff (03/15/17 16:07) Comprehensive Metabolic Panel (03/15/17 16:07) Lipase (03/15/17 16:07) Iv Access Insert/Monitor (03/15/17 16:07) Ecg Monitoring (03/15/17 16:07) Oximetry (03/15/17 16:07) Ondansetron Inj (Zofran Inj) (03/15/17 16:15) Sodium Chloride 0.9% Flush (Ns Flush) (03/15/17 16:15) Chest, Single Ap (03/15/17 ) Electrocardiogram (03/15/17 ) Insulin Human Regular Inj (Novolin R Inj (03/15/17 18:15) Dextrose 50% In Bess (Vial) Inj (D50w (Vi (03/15/17 18:15) Sodium Bicarbonate 8.4% Inj (Sodium Bica (03/15/17 18:15) Sodium Polysty Sulfate Liq (Kayexalate L (03/15/17 18:15) Calcium Gluconate Inj (Calcium Gluconate (03/15/17 18:15) Consult Nephrology (03/15/17 ) Labs Laboratory Tests Test 03/15/17 17:00 White Blood Count 6.9 TH/MM3 Red Blood Count 4.90 MIL/MM3 Hemoglobin 14.6 GM/DL Hematocrit 45.8 % Mean Corpuscular Volume 93.5 FL Mean Corpuscular Hemoglobin 29.8 PG Mean Corpuscular Hemoglobin 31.9 % Concent Red Cell Distribution Width 19.2 % Platelet Count 172 TH/MM3 Mean Platelet Volume 8.1 FL Neutrophils (%) (Auto) 81.0 % Lymphocytes (%) (Auto) 9.9 % Monocytes (%) (Auto) 7.1 % Eosinophils (%) (Auto) 1.3 % Basophils (%) (Auto) 0.7 % Neutrophils # (Auto) 5.6 TH/MM3 Lymphocytes # (Auto) 0.7 TH/MM3 Monocytes # (Auto) 0.5 TH/MM3 Eosinophils # (Auto) 0.1 TH/MM3 Basophils # (Auto) 0.0 TH/MM3 CBC Comment DIFF FINAL Differential Comment Sodium Level 134 MEQ/L Potassium Level 6.5 MEQ/L Chloride Level 99 MEQ/L Carbon Dioxide Level 22.7 MEQ/L Anion Gap 12 MEQ/L Blood Urea Nitrogen 53 MG/DL Creatinine 9.86 MG/DL Estimat Glomerular Filtration 5 ML/MIN Rate Random Glucose 80 MG/DL Calcium Level 10.1 MG/DL Total Bilirubin 1.2 MG/DL Aspartate Amino Transf 6 U/L (AST/SGOT) Alanine Aminotransferase 19 U/L (ALT/SGPT) Alkaline Phosphatase 139 U/L Total Protein 7.5 GM/DL Albumin 3.6 GM/DL Lipase 199 U/L [facility] Medical Decision Making Medical Screen Exam Complete: Yes Emergency Medical Condition: Yes Medical Record Reviewed: Yes Interpretation(s) chest x-ray - CONCLUSION: Cardiomegaly with diffused increased interstitial markings likely representing pulmonary venous hypertension or mild edema. Differential Diagnosis Gastroenteritis versus electrolyte abnormality versus ESRD Narrative Course 61-year-old male presents to the emergency department for evaluation of diarrhea for 3 days as well as nausea and vomiting for one day. Patient has history of end-stage renal disease and is on hemodialysis. He did miss his dialysis today. EKG, CBC, CMP, lipase, chest x-ray ordered and pending. Patient is given Zofran 4 mg IVP EKG shows atrial fibrillation, HR 92. CBC shows no acute abnormality. CMP shows hyperkalemia 6.5, BUN 53, creatinine 9.86. Lipase is 199 chest x-ray shows cardiomegaly with diffused increased interstitial markings likely representing pulmonary venous hypertension or mild edema. Patient is given insulin 10 units IV, dextrose 1 amp, sodium bicarbonate 1 amp, Slightly 15 g by mouth, calcium gluconate 1 g IV for hyperkalemia. Nephrology is called. I spoke to Dr. Chisholm who plan on dialysis tonight. [facility] is paged for admission. MELODIE Llamas, accepted admission. Diagnosis Primary Impression: Hyperkalemia Additional Impressions: ESRD on hemodialysis Gastroenteritis, noninfectious Qualified Code: K52.9 - Noninfectious gastroenteritis, unspecified type Admitting Information Admitting Physician Requests: Analy Rizzo Mar 15, 2017 16:20
--- NOTE | 2017-03-15 17:20 | RADRPT ---
EXAM DATE/TIME: 03/15/2017 16:16 [facility] COMPARISON: CHEST SINGLE AP, February 08, 2017, 20:13. INDICATIONS : Short of breath. MEDICAL HISTORY: Myocardial infarction. Hypertension. CHF. A-fib. SURGICAL HISTORY : Rotator cuff, right. AV shunt. Dialysis. Left leg surgery. ENCOUNTER: Initial ACUITY: 1 day PAIN SCORE: 0/10 LOCATION: Bilateral chest FINDINGS: The cardiac silhouette is enlarged. The lungs demonstrate diffuse increased interstitial markings. Focal alveolar consolidation is not seen. No effusions are seen. CONCLUSION: Cardiomegaly with diffused increased interstitial markings likely representing pulmon cb venous hypertension or mild edema. Rivera Pepper MD on March 15, 2017 at 17:05 Board Certified Radiologist. This report was verified electronically.
[2017-03-15 17:41] LABS: AUTOMATED NEUTROPHIL # 5.6 TH/MM3 (1.8-7.7); BASOPHIL % 0.7 % (0.0-2.0); EOSINOPHIL # 0.1 TH/MM3 (0-0.4); EOSINOPHIL % 1.3 % (0.0-4.0); HEMATOCRIT 45.8 % (39.0-51.0); HEMO FLAGS DIFF FINAL; LYMPH % 9.9 % (9.0-44.0); LYMPHOCYTE # 0.7 TH/MM3 (1.0-4.8); MEAN CELL VOLUME 93.5 FL (80.0-100.0); MEAN CORPUSCULAR HEMOGLOBIN 29.8 PG (27.0-34.0); MEAN CORPUSCULAR HGB CONC 31.9 % (32.0-36.0); MONO % 7.1 % (0.0-8.0); PLATELET COUNT 172 TH/MM3 (150-450); RED CELL DISTRIBUTION WIDTH 19.2 % (11.6-17.2); WHITE BLOOD COUNT 6.9 TH/MM3 (4.0-11.0)
[2017-03-15 17:54] LABS: ANION GAP 12 MEQ/L (5-15); AST (GOT) 6 U/L (15-37); BICARBONATE 22.7 MEQ/L (21.0-32.0); BLOOD UREA NITROGEN 53 MG/DL (7-18); CHLORIDE 99 MEQ/L (98-107); GLOMERULAR FILTRATION RATE 5 ML/MIN (>89); POTASSIUM 6.5 MEQ/L (3.5-5.1); SODIUM (NA) 134 MEQ/L (136-145)
[2017-03-15 17:55] LABS: ALT (GPT) 19 U/L (12-78)
[2017-03-15 17:57] LABS: ALKALINE PHOSPHATASE 139 U/L (45-117); TOTAL BILIRUBIN ADULT 1.2 MG/DL (0.2-1.0)
[2017-03-15] MEDS ORDERED: DEXTROSE 50% IN WATER 50 ML VIAL(D50) IV PUSH ONE (18:15)
[2017-03-15] MEDS ORDERED: INSULIN HUMAN REGULAR 1,000 UNITS/10 ML VIAL IV PUSH ONE (18:15)
[2017-03-15] MEDS ORDERED: SODIUM BICARBONATE 8.4% SOLN 50 MEQ/50 ML VIAL SLOW IVP ONE (18:15)
[2017-03-15] MEDS ORDERED: SODIUM POLYSTYRENE SULFONATE SUSP 15 GM/60 ML CUP PO ONE (18:15)
[2017-03-15] MEDS ORDERED: CALCIUM GLUCONATE INJ 1 GM in SODIUM CHLORIDE 0.9% INJ 100 ML IV ONE (18:15)
[2017-03-15] MEDS ORDERED: ZOFR4TAB PO (18:30)
[2017-03-15 19:30] VITALS: BP 122/81; PULSE 91; RESP 16; O2SAT 98
[2017-03-15] MEDS ORDERED: ACETAMINOPHEN 325 MG TAB PO PRN (20:30)
[2017-03-15] MEDS ORDERED: SENNOSIDES 8.6 MG TAB PO PRN (20:30)
[2017-03-15] MEDS ORDERED: ONDANSETRON HCL 4 MG/2 ML VIAL IVP PRN (20:30)
[2017-03-15] MEDS ORDERED: SODIUM CHLORIDE 0.9% FLUSH 10 ML FLUSH IV FLUSH PRN (20:30)
[2017-03-15] MEDS ORDERED: NALOXONE HCL 0.4 MG/ML AMP IV PRN (20:30)
[2017-03-15 23:25] VITALS: BP 117/78; PULSE 100; RESP 18; TEMP 96.2; O2SAT 96
[2017-03-15] MEDS: HEPARIN SODIUM - SQ 10,000 UNITS/ML VIAL SQ SCH (23:30)
[2017-03-15] MEDS: SODIUM CHLORIDE 0.9% FLUSH 10 ML FLUSH IV FLUSH SCH (23:30)
[2017-03-16] VITALS (7 sets, daily range): BP systolic 112–133; BP diastolic 76–81; PULSE 84–110; RESP 16–18; TEMP 96.9–97.6; O2SAT 95–96
[2017-03-16 07:20] LABS: BICARBONATE 28.7 MEQ/L (21.0-32.0); POTASSIUM 4.5 MEQ/L (3.5-5.1)
[2017-03-16] MEDS ORDERED: diphenhydrAMINE HCL 25 MG CAP PO PRN (08:15)
[2017-03-16] MEDS ORDERED: ONDANSETRON ODT 4 MG TAB PO PRN (08:30)
[2017-03-16] MEDS ORDERED: LOSARTAN 50 MG TAB PO SCH (09:00)
[2017-03-16] MEDS: SODIUM CHLORIDE 0.9% FLUSH 10 ML FLUSH IV FLUSH SCH ×2 (09:00→21:31)
[2017-03-16] MEDS: HEPARIN SODIUM - SQ 10,000 UNITS/ML VIAL SQ SCH ×2 (09:02→21:31)
[2017-03-16] MEDS: METOPROLOL TARTRATE 100 MG TAB PO SCH ×2 (09:02→21:30)
[2017-03-16] MEDS: VITAMIN B CMPLX/VITC/FOLIC AC CAP PO SCH (09:02)
[2017-03-16] MEDS: DILTIAZEM-CD 240 MG CAP ER PO SCH (09:02)
[2017-03-16] MEDS: SEVELAMER CARBONATE 800 MG TAB PO SCH ×3 (09:02→18:16)
[2017-03-16] MEDS: CITALOPRAM HYDROBROMIDE 20 MG TAB PO SCH (09:02)
--- NOTE | 2017-03-16 09:17 | MH ---
cc: TDKATELINLEANN DATE OF ADMISSION 03/15/2017 CHIEF COMPLAINT Diarrhea, nausea and vomiting TRAVEL IN THE LAST 30 DAYS None HISTORY OF PRESENT ILLNESS This is a 61-year-old white male who presented to the emergency room with diarrhea times three days. He states that he has not been around anyone sick except for the people that go to the dialysis center. He does have end-stage renal disease and has dialysis Wednesday, Wednesday and Wednesday, but was unable to attend yesterday morning, the morning of admission due to his GI symptoms. He did note some nausea, vomiting, and decreased appetite, but denies any headaches, chest pain, shortness of breath. The patient does live in a longterm, suffers from multiple medical comorbidities which includes atrial fibrillation and a history of CVA according to the record. Currently the patient appears comfortable resting in his room. He did receive dialysis late last night and states he has had no diarrhea since 0. The patient denies any symptoms of hematuria. No dysuria. Denies any blood in his stools. PAST MEDICAL HISTORY According to the record: 1. Atrial fibrillation 2. Anxiety disorder 3. Depression 4. End-stage renal disease, patient is on hemodialysis 5. Heart attack 6. Cardiovascular disease 7. Coronary artery disease 8. Congestive heart failure 9. Hypertension 10. According to the record, it does list some type of psychiatric disorders. PAST SURGICAL HISTORY 1. AV fistula left forearm 2. AV graft shunt 3. Right shoulder cyst surgery 4. Vas cath to the upper right chest ALLERGIES MRSA LEG GROWING ABSCESS IN 2006. BEES, SEVERE ANAPHYLACTIC REACTIONS. PLEASE NOTE THAT HE WAS MRSA/PCR NEGATIVE IN 2016. Other types of allergies are HIS COLD MEDICINE. REPORTED MEDICATIONS 1. Zofran 2. Lopressor 3. Losartan 4. Diltiazem 5. Citalopram 6. Renvela 7. Sensipar 8. B-complex vitamins 9. Diphenhydramine 10. Hydramine SOCIAL HISTORY Currently the patient lives in a longterm for the past 10 years. He states occasional social beer, but no tobacco and no illicit drugs. REVIEW OF SYSTEMS Noted in the HPI which includes diarrhea, GI symptoms of nausea, some vomiting, decreased appetite. Otherwise systems are negative and unremarkable. PHYSICAL EXAM VITAL SIGNS: Temperature 96.9, pulse labile between 91 and 104 irregular rhythm, respiratory rate 18-22 noted during assessment. Blood pressure 115/76, O2 sat 96 currently on room air. GENERAL: This is a well-nourished white male who looks older than his stated age resting in the bed. He was pleasant and responded to verbal stimuli, but had some mild altered mental status related to history probably secondary to his history of CVA. SKIN: Levi, warm and dry. Pale mucous membranes. Some chronic urticaria noted on his bilateral lower extremities. HEAD, EYES, EARS, NOSE, AND THROAT: Atraumatic, normocephalic, PERRLA. Mucous membranes are pink. Tongue is midline. NECK: Supple. CARDIOVASCULAR: S1 and S2 irregular rhythm. Harsh systolic murmur grade 4/6 at the left sternal border. He has no edema and his pulses were intact. PULMONARY: Lungs were essentially clear anteriorly with no wheezes or rhonchi. He does have some diminished breath sounds in the bases consistent with rales. ABDOMEN: Round, soft, nontender and nondistended. MUSCULOSKELETAL: Moves his extremities with purpose. No obvious deformities. Noted above, urticaria and scratches acute on chronic on his lower legs. NEUROLOGIC: He responded to verbal stimuli. He is a poor to fair historian, but he was able to answer some questions appropriately. Tongue is midline. Speech was slow, but understandable. PSYCHIATRIC: Mood and affect was slow, but appropriate. DIAGNOSTIC DATA WBC count 6.9, RBC 4.9, hemoglobin 14.6, hematocrit 45.8, platelet count 172, RDW 19.2, neutrophil auto count 81. Chemistry on 03/16/2017 was 139, potassium 4.5, was 6.5 on admission. Please note sodium 134 on admission. Chloride 99, carbon dioxide 28.7, amnion gap 11, BUN 40, creatinine 7.8, GFR 7, glucose 92, calcium 9.4. IMAGING Shows cardiomegaly with increased interstitial markings bilateral. No adhesions seen. Could be mild edema versus pulmonary venous hypertension. ASSESSMENT AND PLAN 1. Gastroenteritis probably non-infection with nausea, vomiting and diarrhea. 2. End-stage renal disease on hemodialysis 3. Hyperkalemia now resolved. 4. Cardiomegaly 5. History of cardiomyopathy. 6. Atrial fibrillation with uncontrolled rate, mild. Our plan is to admit inpatient status. Nephrology has been consulted for his expert opinion. Dialysis has already been performed on day one since the patient missed his dialysis yesterday morning. BCG monitoring. Monitor his labs. Vital signs q4 and as needed. Cardiac renal diet. As needed medications as needed. O2 as needed. DVT prophylaxis with heparin. The patient was given one dose of Kayexalate for his hyperkalemia and this now has corrected within 24-hours on his labs. The patient was also given sodium bicarb 50 mEq one time IV push and calcium gluconate one time. We will reconcile his medications and follow his needs. To my knowledge, the patient is full code, full aggressive care. We will add DVT prophylaxis with Pepcid and monitor his rate and rhythm for any further needs with control of his atrial fibrillation. Currently it is borderline. His Cardizem, Lopressor and other home meds will be restarted today. Dictated by VELMA Parada Leann Herring MD JP/FLORECITA /8:00 AM /8:51 AM Patient seen and examined as above Labs radiological data and medications reviewed Notes reviewed Discussed with patient in detail Appreciate consultants input Plan of care and above note discussed with VELMA Floor time spent with patient Continue current management MTDD
--- NOTE | 2017-03-16 10:27 | PD.CONS ---
HPI Service Nephrology Consult Requested By Reason for Consult ESRD on HD, hyperkalemia Primary Care Physician Suhas Roper M.D. History of Present Illness This is a 61 y/o male patient with whom we follow in outpatient setting. He normally dialyzes MWF, did not go to treatment yesterday as he had nausea/ vomiting and diarrhea for several days. He denies eating anything different than usual food or sick contacts. PMH of HTN, metabolic bone disorder, A fib, and CVA. He was admitted in January with similar presentation, had gallstones on imaging. On arrival he was hyperkalemic at 6.5, he was dialyzed and repeat K is normal. He states he feels well today, no acute concerns. We were consulted for management. (Chinyere Rodriguez) Review of Systems Constitutional: DENIES: Fatigue, Dizziness, Change in appetite Cardiovascular: DENIES: Chest pain Gastrointestinal: COMPLAINS OF: Diarrhea, Nausea, Vomiting, DENIES: Abdominal pain, Black stools, Constipation Neurologic: DENIES: Abnormal gait (Chinyere Rodriguez) Past Family Social History Allergies: Coded Allergies: Bees (Verified Allergy, Severe, Anaphylaxis, 03/15/17) *MDRO Multi-Drug Resistant Organism (Verified Adverse Reaction, Unknown, ) MRSA (leg/groin abscess) - 2006 *MRSA PCR negative 11/03/15 & 11/05/15. Pt does not require isolation for hx of MDRO prior to 11/05/15.* Uncoded Allergies: Contac cold medicine (Allergy, Severe, Hives, 01/08/17) allergy Past Medical History ESRD on HD MWF HTN anemia metabolic bone disorder COPD CHF A fib CVA Depression Developmental disorder Past Surgical History left arm AV graft with revision shoulder Reported Medications Zofran (Ondansetron HCl) 4 Mg Tab 4 Mg PO Q8HR PRN Diphenhydramine (Diphenhydramine HCl) 25 Mg Cap 25 Mg PO Q12H PRN Sensipar (Cinacalcet) 60 Mg Tab 120 Mg PO HS Renvela (Sevelamer Carbonate) 800 Mg Tab 800 Mg PO TID Jennifer-Phani (B-Complex W/ C & Folic Acid) 1 Tab 1 Tab PO DAILY Lopressor (Metoprolol Tartrate) 100 Mg Tab 100 Mg PO BID Losartan (Losartan Potassium) 50 Mg Tab 50 Mg PO DAILY Diltiazem ER 12 HR (Diltiazem HCl) 120 Mg Caper 240 Mg PO DAILY Citalopram (Citalopram Hydrobromide) 20 Mg Tab 20 Mg PO DAILY Active Ordered Medications Current Medications Medications (Trade) Dose Ordered Sig/Neeraj Route Start Time Stop Time Status Last Admin (NS Flush) 2 ml UNSCH PRN IVF 03/15/17 16:15 (NS Flush) 2 ml UNSCH PRN IV FLUSH 03/15/17 20:30 (NS Flush) 2 ml BID IV FLUSH 03/15/17 21:00 03/16/17 09:00 (Tylenol) 650 mg Q4H PRN PO 03/15/17 20:30 (Zofran Inj) 4 mg Q6H PRN IVP 03/15/17 20:30 (Heparin Inj) 5,000 units Q12HR SQ 03/15/17 21:25 03/16/17 09:02 (Narcan Inj) 0.4 mg UNSCH PRN IV 03/15/17 20:30 (Senokot) 17.2 mg Q12H PRN PO 03/15/17 20:30 (CeleXA) 20 mg DAILY PO 03/16/17 09:00 03/16/17 09:02 (Benadryl) 25 mg Q12H PRN PO 03/16/17 08:15 (Cozaar) 50 mg DAILY PO 03/16/17 09:00 03/16/17 09:02 (Lopressor) 100 mg BID PO 03/16/17 09:00 03/16/17 09:02 (Renvela) 800 mg TID PO 03/16/17 09:00 03/16/17 09:02 (Nephrocaps) 1 cap DAILY PO 03/16/17 09:00 03/16/17 09:02 (Sensipar) 120 mg HS PO 03/16/17 21:00 (Cardizem Cd) 240 mg DAILY PO 03/16/17 09:00 03/16/17 09:02 (Zofran Odt) 4 mg Q8H PRN PO 03/16/17 08:30 (Pepcid) 20 mg HS PO 03/16/17 21:00 Family History No hx of renal disorders Social History resides in Assisted Living no hx of smoking remote hx of 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 full code (Chinyere Rodriguez) Physical Exam Vital Signs Vital Signs Date Time Temp Pulse Resp B/P Pulse Ox O2 Delivery O2 Flow Rate FiO2 03/16/17 08:00 97.3 110 18 122/79 95 03/16/17 04:25 96.9 104 18 115/76 96 03/16/17 00:40 92 03/15/17 23:25 96.2 100 18 117/78 96 03/15/17 19:30 91 16 122/81 98 Room Air 03/15/17 16:10 97.9 94 19 133/87 94 Room Air 03/15/17 16:10 18 03/15/17 16:10 97.9 94 19 133/87 94 Room Air 03/15/17 14:14 97.8 100 16 125/81 95 Physical Exam Disheveled male, awake/alert in no distress no neuro deficit noted S1/S2, irreg irreg, no murmurs lungs clear in all guillen abd round, soft and non tender, no guarding or rebound tenderness extremities: no edema, AV graft in left arm + thrill/bruit he has multiple scratch garcia on his body Laboratory Laboratory Tests Test 03/15/17 03/16/17 17:00 06:25 White Blood Count 6.9 Red Blood Count 4.90 Hemoglobin 14.6 Hematocrit 45.8 Mean Corpuscular Volume 93.5 Mean Corpuscular Hemoglobin 29.8 Mean Corpuscular Hemoglobin 31.9 Concent Red Cell Distribution Width 19.2 Platelet Count 172 Mean Platelet Volume 8.1 Neutrophils (%) (Auto) 81.0 Lymphocytes (%) (Auto) 9.9 Monocytes (%) (Auto) 7.1 Eosinophils (%) (Auto) 1.3 Basophils (%) (Auto) 0.7 Neutrophils # (Auto) 5.6 Lymphocytes # (Auto) 0.7 Monocytes # (Auto) 0.5 Eosinophils # (Auto) 0.1 Basophils # (Auto) 0.0 CBC Comment DIFF FINAL Differential Comment Sodium Level 134 139 Potassium Level 6.5 4.5 Chloride Level 99 99 Carbon Dioxide Level 22.7 28.7 Anion Gap 12 11 Blood Urea Nitrogen 53 40 Creatinine 9.86 7.80 Estimat Glomerular Filtration 5 7 Rate Random Glucose 80 92 Calcium Level 10.1 9.4 Total Bilirubin 1.2 Aspartate Amino Transf 6 (AST/SGOT) Alanine Aminotransferase 19 (ALT/SGPT) Alkaline Phosphatase 139 Total Protein 7.5 Albumin 3.6 Lipase 199 (Chinyere Rodriguez) Result Diagram: 03/15/17 1700 03/16/17 0625 Assessment and Plan Problem List: (1) ESRD on hemodialysis Plan: MWF hemodialysis, had 3L UF late last night stable from renal perspective no acute issues avoid IVF, gadolinium epogen not required cleared for discharge from nephrology perspective to resume outpatient HD arrangements (2) Hyperkalemia Plan: resolved likely due to both missing dialysis and also poor oral intake and relative endogenous insulin deficiency (3) Nausea and vomiting Plan: mostly resolved defer to medical team regarding management (4) Metabolic bone disease Plan: continue Renvela continue sensipar for secondary hyperparathyroidism (Chinyere Rodriguez) Assessment and Plan patient was seen and examined. He could not go to dialysis yesterday at [facility] because of diarrhea, and came to the ER. Found to be hyperkalemic. He was emergently dialyzed yesterday. He has several chronic issues, but is stable for discharge from renal standpoint today. (Varun Chisholm MD) Chinyere Rodriguez Mar 16, 2017 10:27 Varun Chisholm MD Mar 16, 2017 14:31
--- NOTE | 2017-03-16 16:43 | EKG ---
Date Performed: 03/15/2017 Time Performed: 17:33:41 PTAGE: 61 years EKG: ATRIAL FIBRILLATION PATTERN CONSISTENT WITH PULMONARY DISEASE POSSIBLE RIGHT VENTRICULAR HY PERTROPHY Since previous tracing, no significant change noted ABNORMAL ECG PREVIOUS TRACING : 02/08/2017 20.29 DOCTOR: Linda Ochoa Interpretating Date/Time 03/16/2017 17:17:00
[2017-03-16] MEDS ORDERED: CINACALCET HYDROCHLORIDE 30 MG TAB PO SCH (21:00)
[2017-03-16] MEDS ORDERED: FAMOTIDINE 20 MG TAB PO SCH (21:00)
[2017-03-17] VITALS: BP 115/76; PULSE 86; RESP 16; TEMP 96.5; O2SAT 96
[2017-03-17 04:30] VITALS: BP 95/62; PULSE 66; RESP 16; TEMP 96.4; O2SAT 95
[2017-03-17 05:53] LABS: BICARBONATE 29.1 MEQ/L (21.0-32.0); POTASSIUM 5.4 MEQ/L (3.5-5.1)
[2017-03-17 07:35] VITALS: O2SAT 95
[2017-03-17 07:50] VITALS: BP 104/65; PULSE 84; RESP 20; TEMP 96.1; O2SAT 98
[2017-03-17] MEDS: SODIUM CHLORIDE 0.9% FLUSH 10 ML FLUSH IV FLUSH SCH ×2 (08:00→09:00)
[2017-03-17] MEDS: METOPROLOL TARTRATE 100 MG TAB PO SCH (09:00)
[2017-03-17] MEDS: SEVELAMER CARBONATE 800 MG TAB PO SCH ×2 (09:00→12:38)
[2017-03-17] MEDS: HEPARIN SODIUM - SQ 10,000 UNITS/ML VIAL SQ SCH (09:00)
--- NOTE | 2017-03-17 10:12 | HHI.NPPN ---
Subjective Renal Failure: Chronic, End Stage Renal Disease Interval History Seen during dialysis. No further episodes of diarrhea. Potential discharge today. (Chinyere Rodriguez) Review of Systems Gastrointestinal Gastrointestinal: Diarrhea (Chinyere Rodriguez) Objective Data Data 03/16/17 03/17/17 19:00 07:00 Intake Total 1080 ml 960 ml Balance 1080 ml 960 ml Intake Oral 1080 ml 960 ml # Voids 0 0 # Bowel Movements 1 Vital Signs Date Time Temp Pulse Resp B/P Pulse Ox O2 Delivery O2 Flow Rate FiO2 03/17/17 07:50 96.1 84 20 104/65 98 03/17/17 07:35 95 21 03/17/17 04:30 96.4 66 16 95/62 95 03/17/17 00:00 96.5 86 16 115/76 96 03/16/17 21:28 84 112/79 03/16/17 20:00 97.5 87 16 115/77 96 03/16/17 16:00 97.0 95 18 133/80 96 03/16/17 12:00 97.6 99 18 127/81 95 (Chinyere Rodriguez) -: 03/15/17 1700 03/17/17 0517 Imaging Last 72 hours Impressions Chest X-Ray 03/15/17 0000 Signed Impressions: Service Date/Time: Wednesday, March 15, 2017 16:16 - CONCLUSION: Cardiomegaly with diffused increased interstitial markings likely representing pulmonary venous hypertension or mild edema. Rivera Pepper MD (Chinyere Rodriguez) Physical Exam General Appearance: No Acute Distress, Comfortable, Malnourished (Chinyere Rodriguez) Throat Throat Exam: Oral Mucosa Dowell & Moist (Chinyere Rodriguez) Pulmonary Resp Exam: Clear Bilaterally, Breath Sounds Equal (Chinyere Rodriguez) Cardiology CV Exam: Regular, Normal Sinus Rhythm (Chinyere Rodriguez) Gastrointestinal/Abdomen GI Exam: Soft, Non-Tender, Bowel Sounds Present (Chinyere Rodriguez) Musculoskeletal MS Exam: Joints Intact, Normal Gait, Normal Tone (Chinyere Rodriguez) Integumentary Skin Exam: Warm, Dry Skin Remarks multiple abrasions on all extremities due to scratching (Chinyere Rodriguez) Neurologic Neuro Exam: Alert, Awake, Oriented, Speech Clear, Moving All Extremities ( Chinyere Rodriguez) Psychiatric Psych Exam: Appropriate Responses (Chinyere Rodriguez) Assessment/Plan Discussed Condition With: Patient Problem List: (1) ESRD on hemodialysis Plan: Seen during dialysis on a 2K, 350 BFR< goal 2L continue MWF hemodialysis, resume outpatient HD if discharged stable from renal perspective no acute issues avoid IVF, gadolinium epogen not required cleared for discharge from nephrology perspective (2) Hyperkalemia Plan: resolved likely due to both missing dialysis and also poor oral intake and relative endogenous insulin deficiency (3) Nausea and vomiting Plan: mostly resolved defer to medical team regarding management (4) Metabolic bone disease Plan: continue Renvela continue sensipar for secondary hyperparathyroidism (Chinyere Rodriguez) Plan patient was seen and examined. Agree with above assessment and plan. (Varun Chisholm MD) Chinyere Rodriguez Mar 17, 2017 10:12 Varun Chisholm MD Mar 17, 2017 18:29
[2017-03-17 11:45] VITALS: BP 120/79; PULSE 80; RESP 20; TEMP 96.2; O2SAT 95
[2017-03-17] MEDS: CITALOPRAM HYDROBROMIDE 20 MG TAB PO SCH (12:38)
[2017-03-17] MEDS: DILTIAZEM-CD 240 MG CAP ER PO SCH (12:38)
[2017-03-17] MEDS: VITAMIN B CMPLX/VITC/FOLIC AC CAP PO SCH (12:39)
--- NOTE | 2017-03-17 12:48 | HHI.PR ---
Subjective Remarks dialysis this am hungry ordering food no acute pain or SOB (Nicole Kaur) Objective Objective Results - Vital Signs Date Time Temp Pulse Resp B/P Pulse Ox O2 Delivery O2 Flow Rate FiO2 03/17/17 07:50 96.1 84 20 104/65 98 03/17/17 07:35 95 21 03/17/17 04:30 96.4 66 16 95/62 95 03/17/17 00:00 96.5 86 16 115/76 96 03/16/17 21:28 84 112/79 03/16/17 20:00 97.5 87 16 115/77 96 03/16/17 16:00 97.0 95 18 133/80 96 I/O 03/16/17 03/16/17 03/16/17 03/17/17 03/17/17 03/17/17 07:00 15:00 23:00 07:00 15:00 23:00 Intake Total 240 ml 1080 ml 480 ml 480 ml Output Total 2000 ml Balance 240 ml 1080 ml 480 ml 480 ml -2000 ml Intake Oral 240 ml 1080 ml 480 ml 480 ml Hemodialysis 2000 ml # Voids 0 0 # Bowel Movements 1 (Nicole Kaur) Result Diagram: 03/15/17 1700 03/17/17 0517 ROS General: Weakness, Other /DIRECTOR OF HOME ECONOMICS: Other (Nicole Kaur) Physical Exam Physical Exam PHYSICAL EXAMINATION GENERAL: This is a male who appears to be in no acute distress. He is alert and awake, HEAD: Normocephalic without any lesion or mass noted. Facial features appear symmetric. OROPHARYNGEAL: Oropharynx without erythema or edema. NECK: Supple. No nuchal rigidity or lymphadenopathy. Trachea midline without deviation. CARDIAC: Regular rhythm, regular rate, S1 and S2 are heard. LUNGS: Clear to auscultation bilaterally. No wheezes no rhonchi No use of accessory muscles on inspiration or expiration. ABDOMEN: Soft, nontender, no organomegaly or masses. Bowel sounds are heard in all four quadrants. No rebound. No guarding. EXTREMITIES: no edema. Pulses equal bilateral. NEUROLOGICAL: Patient mood and affect appropriate. No focal deficit SKIN:Warm and moist (Nicole Kaur) A/P Assessment and Plan 1. Gastroenteritis probably non-infection with nausea, vomiting and diarrhea. 2. End-stage renal disease on hemodialysis 3. Hyperkalemia now resolved. 4. Cardiomegaly 5. History of cardiomyopathy. 6. Atrial fibrillation with uncontrolled rate, mild. vitals and labs reviewed, heart rate controlled, labs controlled Patient is hungry this morning and ordering food after coming back from dialysis No nausea vomiting diarrhea or constipation noted some of these are the symptoms he admitted with. Appreciate consult from nephrology for renal management. Patient received dialysis on evening of admission and today Tolerated well, will be followed up on an outpatient basis with nephrology and can return to his previous home. Discharge planning and plan for back to his previous room/home Discussed with nurse Discussed with Dr. Herring, seen on his behalf Discussed with patient (Nicole Kaur) Assessment and Plan Patient seen and examined as above Medications and labs reviewed Plan of care and above note reviewed with PERSONAL LINES ACCOUNT MANAGER Discussed with RN Discussed with patient Continue current management Appreciate [employer] retailer sales consultant input Plan to discharge him home to be followed by his primary care doctor and media relations director as outpatient. Discussed with pillowcase cutter about DC planning Discussed with RN know about DC planning (Saniya Herring MD) Nicole Kaur Mar 17, 2017 12:47 Saniya Herring MD Mar 17, 2017 15:18
--- NOTE | 2017-03-17 15:00 | HHI.DS ---
Discharge Summary Admission Date Mar 15, 2017 at 19:55 Discharge Date: Mar 17, 2017 Admitting Diagnosis ESRD, hyperkalemia, gastroenteritis Brief History This was a 61-year-old white male who presented to the emergency room with diarrhea times three days. He stated that he has not been around anyone sick except for the people that go to the dialysis center. He did have end-stage renal disease and has dialysis Wednesday, Wednesday and Wednesday, but was unable to attend yesterday morning, the morning of admission due to his GI symptoms. He did note some nausea, vomiting, and decreased appetite, but denied any headaches, chest pain, shortness of breath. The patient does live in a retirement, suffers from multiple medical comorbidities which includes atrial fibrillation and a history of CVA according to the record. Currently the patient appeared comfortable resting in his room. He did receive dialysis late last night and stated he has had no diarrhea since 0300. The patient denied any symptoms of hematuria. No dysuria. Denies any blood in his stools. CBC/BMP: 03/15/17 1700 03/17/17 0517 Significant Findings Laboratory Tests Test 03/15/17 03/16/17 03/17/17 17:00 06:25 05:17 Mean Corpuscular Hemoglobin 31.9 % Concent (32.0-36.0) Red Cell Distribution Width 19.2 % (11.6-17.2) Neutrophils (%) (Auto) 81.0 % (16.0-70.0) Lymphocytes # (Auto) 0.7 TH/MM3 (1.0-4.8) Sodium Level 134 MEQ/L 134 MEQ/L (136-145) (136-145) Potassium Level 6.5 MEQ/L 5.4 MEQ/L (3.5-5.1) (3.5-5.1) Blood Urea Nitrogen 53 MG/DL (7-18) 40 MG/DL (7-18) 53 MG/DL (7-18) Creatinine 9.86 MG/DL 7.80 MG/DL 9.21 MG/DL (0.60-1.30) (0.60-1.30) (0.60-1.30) Estimat Glomerular Filtration 5 ML/MIN (>89) 7 ML/MIN (>89) 6 ML/MIN (>89) Rate Total Bilirubin 1.2 MG/DL (0.2-1.0) Aspartate Amino Transf 6 U/L (15-37) (AST/SGOT) Alkaline Phosphatase 139 U/L (45-117) Chloride Level 94 MEQ/L (98-107) Imaging Last Impressions Chest X-Ray 03/15/17 0000 Signed Impressions: Service Date/Time: Wednesday, March 15, 2017 16:16 - CONCLUSION: Cardiomegaly with diffused increased interstitial markings likely representing pulmonary venous hypertension or mild edema. Rivera Pepper MD PE at Discharge GENERAL: This was a male who appeared to be in no acute distress. alert and awake, HEAD: Normocephalic without any lesion or mass noted. Facial features appear symmetric. OROPHARYNGEAL: Oropharynx without erythema or edema. NECK: Supple. No nuchal rigidity or lymphadenopathy. Trachea midline without deviation. CARDIAC: Regular rhythm, regular rate, S1 and S2 are heard. LUNGS: Clear to auscultation bilaterally. No wheezes no rhonchi No use of accessory muscles on inspiration or expiration. ABDOMEN: Soft, nontender, no organomegaly or masses. Bowel sounds are heard in all four quadrants. No rebound. No guarding. EXTREMITIES: no edema. Pulses equal bilateral. NEUROLOGICAL: Patient mood and affect appropriate. No focal deficit SKIN:Warm and moist Hospital Course These are the diagnoses that were used to treat this patient and to monitor his plan of care and comorbidities. 1. Gastroenteritis probably non-infection with nausea, vomiting and diarrhea. 2. End-stage renal disease on hemodialysis 3. Hyperkalemia now resolved. 4. Cardiomegaly 5. History of cardiomyopathy. 6. Atrial fibrillation with uncontrolled rate, mild. vitals and labs reviewed, treated according to any abnormals and adjusted his plan of care per hospital course. Nephrology was consult for their expert opinion and assisted with medical management of HD, meds and labs. Patient is hungry when admission symptoms subsided and ordered food after coming back from dialysis. Within 24 hours he has regained his appetite. No nausea vomiting diarrhea or constipation noted some of these are the symptoms he admitted with. Appreciate consult from nephrology for renal management. Patient received dialysis on evening of admission and today. Medically stable from a renal standpoint Tolerated well, will be followed up on an outpatient basis with nephrology and can return to his previous home. Discharge planning and plan for back to his previous room/home, SENIOR CARE Daily rounds and case discussed with nurse, patient ,and Dr. Nima CARREON and Dr. Herring saw patient today and felt that he was stable for discharge. Dialysis was done this a.m. Pt Condition on Discharge: Stable Discharge Disposition: ACLF/NING Discharge Instructions DIET: Follow Instructions for: Renal Failure Diet Activities you can perform: Weight Bearing as Isela Follow up Referrals: Nephrology - 1 Week PCP Follow-up - 1 Week Continued Medications: B-Complex W/ C & Folic Acid (Jennifer-Phani) 1 Tab 1 TAB PO DAILY TAB Cinacalcet (Sensipar) 60 Mg Tab 120 MG PO HS #60 Ref 0 TAB Citalopram (Citalopram) 20 Mg Tab 20 MG PO DAILY Control Depression #30 Ref 0 TAB Diltiazem ER 12 HR (Diltiazem ER 12 HR) 120 Mg Caper 240 MG PO DAILY #60 Ref 0 CAP Diphenhydramine (Diphenhydramine) 25 Mg Cap 25 MG PO Q12H PRN ALLERGIES Ref 0 CAP Losartan (Losartan) 50 Mg Tab 50 MG PO DAILY Blood Pressure Management #30 Ref 0 TAB Metoprolol Tartrate (Lopressor) 100 Mg Tab 100 MG PO BID #60 Ref 0 TAB Ondansetron (Zofran) 4 Mg Tab 4 MG PO Q8HR PRN NAUSEA OR VOMITING Ref 0 TAB Sevelamer Carbonate (Renvela) 800 Mg Tab 800 MG PO TID Control phosphorous levels #90 Ref 0 TAB Nicole Kaur Mar 17, 2017 15:00
[2017-03-17 15:50] VITALS: BP 112/71; PULSE 87; RESP 20; TEMP 96.4; O2SAT 99
== END 2017-03-17 15:56 | DRG 391 ==
LOC: NEPE 14:05 → NEDA 19:55 → OBSVTOIN 19:55 → HOCB 23:16
PROVIDERS: ADMIT Specialist; ATTEND Specialist
PROC: 5A1D60Z (ICD-10-PCS; principal; 2017-03-15)
DX: K52.9 Noninfective gastroenteritis and colitis, unspecified (principal); N18.6 End stage renal disease; I13.2 Hypertensive heart and chronic kidney disease with heart failure and with stage 5 chronic kidney disease, or end stage renal disease; E88.89 Other specified metabolic disorders; N25.81 Secondary hyperparathyroidism of renal origin; I42.9 Cardiomyopathy, unspecified; I50.9 Heart failure, unspecified; I27.2 Other secondary pulmonary hypertension; E87.5 Hyperkalemia; I48.91 Unspecified atrial fibrillation; J44.9 Chronic obstructive pulmonary disease, unspecified; I25.2 Old myocardial infarction; I25.10 Atherosclerotic heart disease of native coronary artery without angina pectoris; F03.90 Unspecified dementia, unspecified severity, without behavioral disturbance, psychotic disturbance, mood disturbance, and anxiety; F41.9 Anxiety disorder, unspecified; F89 Unspecified disorder of psychological development; F32.9 Major depressive disorder, single episode, unspecified; Z86.14 Personal history of Methicillin resistant Staphylococcus aureus infection; Z86.73 Personal history of transient ischemic attack (TIA), and cerebral infarction without residual deficits; Z99.2 Dependence on renal dialysis
CPT/HCPCS: 71010; 80048; 80053; 83690; 85025; 90935; 93005; 96365; 96375; J0610; J1644; J1815; J2405

== ENCOUNTER 2017-07-15 22:35 | Inpatient (IN) | payer MEDICARE, MEDICAID ==
[2017-07-15] VITALS (8 sets, daily range): BP systolic 81–159; BP diastolic 56–74; PULSE 42–60; RESP 17–20; TEMP 98; O2SAT 97–99
[~2017-07-15] VITALS: Ht 172.7 cm; Wt 85.7 kg
[~2017-07-15 22:35] MED LIST changes: -TRAZ100T4 PO; +ZOFR4TAB PO
[2017-07-15] MEDS ORDERED: SODIUM CHLORIDE 0.9% FLUSH 10 ML FLUSH IVF PRN (23:00)
[2017-07-15] MEDS ORDERED: CALCIUM GLUCONATE 10% 1 GM/10 ML VIAL IV PUSH ONE (23:15)
[2017-07-15] MEDS ORDERED: ATROPINE SULFATE 1 MG/ML VIAL IV PUSH ONE (23:15)
--- NOTE | 2017-07-15 23:18 | RADRPT ---
EXAM DATE/TIME: 07/15/2017 22:56 [facility] COMPARISON: No previous studies available for comparison. INDICATIONS : Chest pain. MEDICAL HISTORY : Myocardial infarction. Hypertension. CHF. A-fib. SURGICAL HISTORY : Rotator cuff, right. AV shunt. Dialysis. Left leg surgery. ENCOUNTER: Initial ACUITY: 1 day PAIN SCORE: 2/10 LOCATION: Bilateral chest FINDINGS: A single view of the chest demonstrates cardiomegaly with left retrocardiac density. Increase in pulm onary vascularity. No pulmonary edema. No definite pleural effusions. Osseous structures are intact. CONCLUSION: 1. Cardiomegaly and left retrocardiac density, likely atelectasis. Sacha Kumar MD on July 15, 2017 at 23:16 Board Certified Radiologist. This report was verified electronically.
[2017-07-15 23:24] LABS: AUTOMATED NEUTROPHIL # 4.5 TH/MM3 (1.8-7.7); BASOPHIL # 0.1 TH/MM3 (0-0.2); BASOPHIL % 1.1 % (0.0-2.0); EOSINOPHIL # 0.1 TH/MM3 (0-0.4); EOSINOPHIL % 1.8 % (0.0-4.0); HEMATOCRIT 42.9 % (39.0-51.0); HEMO FLAGS DIFF FINAL; LYMPH % 18.3 % (9.0-44.0); LYMPHOCYTE # 1.3 TH/MM3 (1.0-4.8); MEAN CELL VOLUME 96.6 FL (80.0-100.0); MEAN CORPUSCULAR HEMOGLOBIN 30.7 PG (27.0-34.0); MEAN CORPUSCULAR HGB CONC 31.8 % (32.0-36.0); MONO % 12.5 % (0.0-8.0); NEUT % 66.3 % (16.0-70.0); PLATELET COUNT 183 TH/MM3 (150-450); RED BLOOD COUNT 4.44 MIL/MM3 (4.50-5.90); RED CELL DISTRIBUTION WIDTH 19.6 % (11.6-17.2); WHITE BLOOD COUNT 6.9 TH/MM3 (4.0-11.0)
[2017-07-15] MEDS ORDERED: LORazepam 2 MG/ML VIAL ONE (23:32)
[2017-07-15 23:41] LABS: ALT (GPT) 16 U/L (12-78); INTERNATIONAL NORMALIZED RATIO 1.6 RATIO; PROTHROMBIN TIME - PATIENT 17.9 SEC (9.8-11.6)
[2017-07-15 23:45] LABS: ALKALINE PHOSPHATASE 173 U/L (45-117); TOTAL BILIRUBIN ADULT 1.3 MG/DL (0.2-1.0)
[2017-07-15] MEDS ORDERED: LORazepam 2 MG/ML VIAL IV PUSH ONE (23:45)
[2017-07-15] MEDS ORDERED: MORPHINE SULFATE 4 MG/ML INJ IV PUSH ONE (23:45)
[2017-07-15] MEDS ORDERED: DOPamine INJ 800 MG in DEXTROSE 5% IN WATER INJ 230 ML IV PRN ×2 (23:45)
[2017-07-15] MEDS ORDERED: TERBUTALINE INJ 1 MG/ML AMP SQ PRN (23:45)
[2017-07-15 23:57] LABS: ANION GAP 15 MEQ/L (5-15); AST (GOT) 11 U/L (15-37); BLOOD UREA NITROGEN 54 MG/DL (7-18); CHLORIDE 104 MEQ/L (98-107); GLOMERULAR FILTRATION RATE 6 ML/MIN (>89); POTASSIUM 5.9 MEQ/L (3.5-5.1); SODIUM (NA) 138 MEQ/L (136-145)
[2017-07-15 23:58] LABS: CREATINE KINASE 57 U/L (39-308)
[2017-07-16] VITALS (24 sets, daily range): BP systolic 104–167; BP diastolic 57–79; PULSE 52–99; RESP 17–25; TEMP 97.7–98.3; O2SAT 93–99
[2017-07-16] MEDS ORDERED: SODIUM POLYSTYRENE SULFONATE SUSP 15 GM/60 ML CUP PO ONE (00:15)
--- NOTE | 2017-07-16 00:43 | PD ---
HPI Chief Complaint: Chest Pain Time Seen by Provider: 22:49 Travel History International Travel<30 days: No Contact w/Intl Traveler<30days: No Traveled to known affect area: No History of Present Illness HPI Patient is a 62-year-old male brought in by EMS due to chest pain. Per EMS, he was at his [facility] when he was complaining of chest pain. They arrived, they noticed that his pulse was in the 30s any had low blood pressure. They tried giving him atropine with no improvement, so they started to pace him. This improved his blood pressure. Patient says he does not feel well, but cannot really describe why. He does say he feels short of breath. PFSH Past Medical History Hx Anticoagulant Therapy: Yes Arthritis: Yes (bilateral hips) Asthma: No Atrial Fibrillation: Yes Autoimmune Disease: No Blood Disorders: No Anxiety: Yes Depression: Yes Heart Rhythm Problems: Yes Cancer: No Cardiovascular Problems: Yes (VT) High Cholesterol: No Chemotherapy: No Chest Pain: No Congestive Heart Failure: Yes COPD: No Cerebrovascular Accident: Yes Dementia: Yes Diabetes: No Dialysis: Yes ([facility]) Diminished Hearing: No Endocrine: No Gastrointestinal Disorders: No GERD: No Glaucoma: No Genitourinary: Yes (On dialysis) Headaches: No Hepatitis: No Hiatal Hernia: No Hypertension: Yes Immune Disorder: No Implanted Vascular Access Dvce: Yes (R ANTERIOR CHEST) Kidney Stones: No Musculoskeletal: No Neurologic: Yes Psychiatric: Yes Reproductive: No Respiratory: Yes (When in fluid overload from renal failure) Migraines: No Myocardial Infarction: Yes Radiation Therapy: No Renal Failure: Yes Seizures: No Sickle Cell Disease: No Sleep Apnea: No Thyroid Disease: No Ulcer: No Past Surgical History Abdominal Surgery: No AICD: No Arteriovenous Shunt: Yes (Left forearm; AV FISTULA) Body Medical Devices: L AV GRAFT SHUNT - STATES REMOVED 12/01 AND VEIN GRAFT PLACED Cardiac Surgery: No Ear Surgery: No Endocrine Surgery: No Eye Surgery: No Genitourinary Surgery: No Gynecologic Surgery: No Insulin Pump: No Joint Replacement: No Oral Surgery: No Pacemaker: No Thoracic Surgery: No Other Surgery: Yes (lfa shunt, r shoulder surgery, vas cath to upper right chest) Social History Alcohol Use: Yes (1 beer every 6 months) Tobacco Use: No (never) Substance Use: No Allergies-Medications (Allergen,Severity, Reaction): Coded Allergies: bee venom protein (honey bee) (Unverified Allergy, Severe, Anaphylaxis, ) *MDRO Multi-Drug Resistant Organism (Verified Adverse Reaction, Unknown, 07/15/17) MRSA (leg/groin abscess) - 2006 *MRSA PCR negative 11/03/15 & 11/05/15. Pt does not require isolation for hx of MDRO prior to 11/05/15.* Uncoded Allergies: Contac cold medicine (Allergy, Severe, Hives, 01/08/17) allergy Reported Meds & Prescriptions Reported Meds & Active Scripts Active Reported Zofran (Ondansetron HCl) 4 Mg Tab 4 Mg PO Q8HR PRN Diphenhydramine (Diphenhydramine HCl) 25 Mg Cap 25 Mg PO Q12H PRN Sensipar (Cinacalcet) 60 Mg Tab 120 Mg PO HS Renvela (Sevelamer Carbonate) 800 Mg Tab 800 Mg PO TID Jennifer-Phani (B-Complex W/ C & Folic Acid) 1 Tab 1 Tab PO DAILY Lopressor (Metoprolol Tartrate) 100 Mg Tab 100 Mg PO BID Losartan (Losartan Potassium) 50 Mg Tab 50 Mg PO DAILY Diltiazem ER 12 HR (Diltiazem HCl) 120 Mg Caper 240 Mg PO DAILY Citalopram (Citalopram Hydrobromide) 20 Mg Tab 20 Mg PO DAILY Review of Systems ROS Limitations: Uncooperative Physical Exam Narrative GENERAL: Awake and alert, in moderate distress. SKIN: Focused skin assessment warm/dry. HEAD: Atraumatic. Normocephalic. EYES: Pupils equal and round. No scleral icterus. Extraocular movements intact. ENT: Mucous membranes pink and moist. NECK: Trachea midline. No JVD. CARDIOVASCULAR: Bradycardia. No murmur appreciated. RESPIRATORY: No accessory muscle use. Clear to auscultation. Breath sounds equal bilaterally. GASTROINTESTINAL: Abdomen soft, non-tender, nondistended. MUSCULOSKELETAL: No obvious deformities. No clubbing. No cyanosis. No edema. NEUROLOGICAL: Awake and alert. No obvious cranial nerve deficits. Motor grossly within normal limits. Normal speech. PSYCHIATRIC: Appropriate mood and affect; insight and judgment normal. Data Data Last Documented VS Vital Signs Date Time Temp Pulse Resp B/P (MAP) Pulse Ox O2 Delivery O2 Flow Rate FiO2 07/16/17 00:31 52 17 116/57 (76) 96 Nasal Cannula 2.00 07/15/17 22:41 98.0 Orders Orders Ckmb (Isoenzyme) Profile (07/15/17 22:50) Complete Blood Count With Diff (07/15/17 22:50) Comprehensive Metabolic Panel (07/15/17 22:50) Prothrombin Time / Inr (Pt) (07/15/17 22:50) Act Partial Throm Time (Ptt) (07/15/17 22:50) Troponin I (07/15/17 22:50) Chest, Single Ap (07/15/17 22:50) Ecg Monitoring (07/15/17 22:50) Bilateral Bp Monitoring (07/15/17 22:50) Iv Access Insert/Monitor (07/15/17 22:50) Oximetry (07/15/17 22:50) Oxygen Administration (07/15/17 22:50) Sodium Chloride 0.9% Flush (Ns Flush) (07/15/17 23:00) Calcium Gluconate Inj (Calcium Gluconate (07/15/17 23:15) Atropine Inj (Atropine Inj) (07/15/17 23:15) Lorazepam Inj (Ativan Inj) (07/15/17 23:32) Lorazepam Inj (Ativan Inj) (07/15/17 23:45) Morphine Inj (Morphine Inj) (07/15/17 23:45) Dopamine Inj (Intropin Inj) (07/15/17 23:45) Terbutaline Inj (Brethine Inj) (07/15/17 23:45) Sodium Polysty Sulfate Liq (Kayexalate L (07/16/17 00:15) Admit Order (Ed Use Only) (07/16/17 ) Labs Laboratory Tests Test 07/15/17 22:50 White Blood Count 6.9 TH/MM3 Red Blood Count 4.44 MIL/MM3 Hemoglobin 13.6 GM/DL Hematocrit 42.9 % Mean Corpuscular Volume 96.6 FL Mean Corpuscular Hemoglobin 30.7 PG Mean Corpuscular Hemoglobin Concent 31.8 % Red Cell Distribution Width 19.6 % Platelet Count 183 TH/MM3 Mean Platelet Volume 8.1 FL Neutrophils (%) (Auto) 66.3 % Lymphocytes (%) (Auto) 18.3 % Monocytes (%) (Auto) 12.5 % Eosinophils (%) (Auto) 1.8 % Basophils (%) (Auto) 1.1 % Neutrophils # (Auto) 4.5 TH/MM3 Lymphocytes # (Auto) 1.3 TH/MM3 Monocytes # (Auto) 0.9 TH/MM3 Eosinophils # (Auto) 0.1 TH/MM3 Basophils # (Auto) 0.1 TH/MM3 CBC Comment DIFF FINAL Differential Comment Prothrombin Time 17.9 SEC Prothromb Time International Ratio 1.6 RATIO Activated Partial Thromboplast Time 34.0 SEC Blood Urea Nitrogen 54 MG/DL Creatinine 9.63 MG/DL Random Glucose 100 MG/DL Total Protein 7.1 GM/DL Albumin 3.2 GM/DL Calcium Level 9.2 MG/DL Alkaline Phosphatase 173 U/L Aspartate Amino Transf (AST/SGOT) 11 U/L Alanine Aminotransferase (ALT/SGPT) 16 U/L Total Bilirubin 1.3 MG/DL Sodium Level 138 MEQ/L Potassium Level 5.9 MEQ/L Chloride Level 104 MEQ/L Carbon Dioxide Level 19.0 MEQ/L Anion Gap 15 MEQ/L Estimat Glomerular Filtration Rate 6 ML/MIN Total Creatine Kinase 57 U/L Troponin I 0.02 NG/ML MDM Medical Decision Making Medical Screen Exam Complete: Yes Emergency Medical Condition: Yes Medical Record Reviewed: Yes Interpretation(s) ECG shows bradycardia, no discernible P waves. There is no ST elevation or depression. Differential Diagnosis Medication overdose versus tachybradycardia syndrome versus electrolyte abnormality Narrative Course Patient is a 62-year-old male brought in for chest pain. He is found to be bradycardic and hypotensive. IV established, labs sent. Originally, patient was maintaining his blood pressure. However after a short period of time, he became bradycardic and hypotensive again. Given calcium, atropine, with no response. He is given Ativan and started on subcutaneous pacing. I spoke with Dr. arita of cardiology who suggests dopamine and he will see the patient in the morning. Labs show a potassium of 5.9. Patient has end-stage renal disease, dialyzed Wednesday and Wednesday. He is given a dose of Kayexalate. Patient admitted for further management. Critical Care Narrative Aggregate critical care time was 40 minutes. Time to perform other separately billable procedures was not included in the critical care time. My time did not include minutes spent treating any other patients simultaneously or on activities that did not directly contribute to the patient's treatment. The services I provided to this patient were to treat and/or prevent clinically significant deterioration that could result in: Serious illness or I provided critical care services requiring my management, as noted below: Chart data review, documentation time, medication orders and management, vital sign assessments/reviewing monitor data, ordering and reviewing lab tests, ordering and interpreting/reviewing x-rays and diagnostic studies, care of the patient and discussion of the patient with the admitting physicians. Diagnosis Primary Impression: Hypotension Qualified Codes: I95.9 - Hypotension, unspecified Additional Impression: Symptomatic bradycardia Admitting Information Admitting Physician Requests: it Apple Chung MD Jul 16, 2017 00:43
[2017-07-16] MEDS ORDERED: MISCELLANEOUS NURSING INFORMATION XX SCH (01:00)
[2017-07-16] MEDS ORDERED: CHLORHEXIDINE GLUCONATE 2 % 1 PACK (2 CLOTHS) TOP PRN (01:00)
[2017-07-16] MEDS ORDERED: ONDANSETRON HCL 4 MG/2 ML VIAL IV PUSH PRN ×2 (01:00→09:15)
[2017-07-16] MEDS ORDERED: ACETAMINOPHEN 325 MG TAB PO PRN ×2 (01:00→09:15)
[2017-07-16] MEDS ORDERED: RESP: ALBUTEROL 2.5 MG/IPRATROPIUM 0.5 MG NEB (PRN) INH (01:00)
[2017-07-16] MEDS ORDERED: DEXTROSE 50% IN WATER 50 ML VIAL(D50) IV PUSH PRN (01:00)
--- NOTE | 2017-07-16 01:06 | HHI.HP ---
HPI Service Critical Care Medicine Primary Care Physician Suhas Roper M.D. Admission Diagnosis Bradycardia, hypotension Diagnosis: Chief Complaint: fatigue Travel History International Travel<30 Days: No Contact w/Intl Traveler <30 Da: No Traveled to Known Affected Are: No History of Present Illness This is a 62-year-old male with a history of atrial fibrillation who presents from a [facility] facility with fatigue and somatic bradycardia. Per EMS he was given atropine with little effect and then transcutaneously paced. On arrival to the emergency department his underlying rhythm was initially A. fib in the 70s, but quickly decompensated back into the 30s, with which the patient was hypotensive and altered. Patient was again transcutaneous lipase. Noted to tolerate his case at pacing, the patient was given IV Ativan and morphine. Patient was started on a dopamine infusion and weaned off transcutaneous pacing. Dr. Ever Darnell was consulted in the emergency department and recommended dopamine infusion in ICU monitoring. When I evaluated the patient, the patient was recently status post his IV Ativan and morphine and was unable to provide any additional information. Review of Systems ROS Limitations: Clinical Condition, Altered Mental Status Past Family Social History Allergies: Coded Allergies: bee venom protein (honey bee) (Unverified Allergy, Severe, Anaphylaxis, ) *MDRO Multi-Drug Resistant Organism (Verified Adverse Reaction, Unknown, 07/15/17) MRSA (leg/groin abscess) - 2006 *MRSA PCR negative 11/03/15 & 11/05/15. Pt does not require isolation for hx of MDRO prior to 11/05/15.* Uncoded Allergies: Contac cold medicine (Allergy, Severe, Hives, 01/08/17) allergy Past Medical History Atrial fibrillation Bilateral hip arthritis Anxiety Depression Prior myocardial infarction Congestive heart failure, unknown type CVA Dementia End-stage renal disease with intermittent hemodialysis Wednesday/Wednesday/Wednesday Past Surgical History Left forearm AV fistula Right shoulder surgery Right upper chest Vas-Cath Reported Medications Zofran (Ondansetron HCl) 4 Mg Tab 4 Mg PO Q8HR PRN Diphenhydramine (Diphenhydramine HCl) 25 Mg Cap 25 Mg PO Q12H PRN Sensipar (Cinacalcet) 60 Mg Tab 120 Mg PO HS Renvela (Sevelamer Carbonate) 800 Mg Tab 800 Mg PO TID Jennifer-Phani (B-Complex W/ C & Folic Acid) 1 Tab 1 Tab PO DAILY Lopressor (Metoprolol Tartrate) 100 Mg Tab 100 Mg PO BID Losartan (Losartan Potassium) 50 Mg Tab 50 Mg PO DAILY Diltiazem ER 12 HR (Diltiazem HCl) 120 Mg Caper 240 Mg PO DAILY Citalopram (Citalopram Hydrobromide) 20 Mg Tab 20 Mg PO DAILY Active Ordered Medications See MAR Family History Reviewed in the chart and found to be noncontributory to his acute illness Social History Rare alcohol use, never smoked Physical Exam Vital Signs Vital Signs Date Time Temp Pulse Resp B/P (MAP) Pulse Ox O2 Delivery O2 Flow Rate FiO2 07/16/17 00:31 52 17 116/57 (76) 96 Nasal Cannula 2.00 07/16/17 00:18 60 17 110/71 (84) 97 Nasal Cannula 2.00 07/16/17 00:12 60 17 122/79 (93) 96 Nasal Cannula 2.00 07/15/17 23:57 60 17 107/67 (80) 97 Nasal Cannula 2.00 07/15/17 23:40 60 17 159/70 (99) 98 Nasal Cannula 2.00 07/15/17 23:26 43 17 90/57 (68) 98 Nasal Cannula 2.00 07/15/17 23:12 42 17 81/56 (64) 99 Nasal Cannula 2.00 07/15/17 22:58 43 17 116/73 (87) 99 Nasal Cannula 2.00 07/15/17 22:51 99 Nasal Cannula 2.00 07/15/17 22:51 20 99 Nasal Cannula 2.00 07/15/17 22:49 50 20 99 Nasal Cannula 2.00 07/15/17 22:41 98.0 54 20 111/74 (86) 99 07/15/17 22:30 98 4.00 07/15/17 22:30 98 Nasal Cannula 4.00 Physical Exam GENERAL: Disheveled and unkempt middle-aged male, lying in bed, sedated HEENT: Normocephalic. Atraumatic. Pupils equal, round, reactive, conjugate. Mucous membranes are moist NECK: Trachea is midline. There is no JVD. CHEST: Equal chest rise. Nasal cannula oxygen CARDIOVASCULAR: Bradycardic rate, irregularly irregular rhythm. A. fib by telemetry. On dopamine infusion. Heart rate 51 on my evaluation. Blood pressure 113 systolic. ABDOMEN: Soft, nontender, nondistended. No guarding. MUSCULOSKELETAL: Pulses 2+. No peripheral edema. NEUROLOGICAL: RASS -2. Protecting airway. Arousable but sedated. Moves all extremities. No focal deficits. Laboratory Laboratory Tests Test 07/15/17 22:50 White Blood Count 6.9 Red Blood Count 4.44 Hemoglobin 13.6 Hematocrit 42.9 Mean Corpuscular Volume 96.6 Mean Corpuscular Hemoglobin 30.7 Mean Corpuscular Hemoglobin Concent 31.8 Red Cell Distribution Width 19.6 Platelet Count 183 Mean Platelet Volume 8.1 Neutrophils (%) (Auto) 66.3 Lymphocytes (%) (Auto) 18.3 Monocytes (%) (Auto) 12.5 Eosinophils (%) (Auto) 1.8 Basophils (%) (Auto) 1.1 Neutrophils # (Auto) 4.5 Lymphocytes # (Auto) 1.3 Monocytes # (Auto) 0.9 Eosinophils # (Auto) 0.1 Basophils # (Auto) 0.1 CBC Comment DIFF FINAL Differential Comment Prothrombin Time 17.9 Prothromb Time International Ratio 1.6 Activated Partial Thromboplast Time 34.0 Blood Urea Nitrogen 54 Creatinine 9.63 Random Glucose 100 Total Protein 7.1 Albumin 3.2 Calcium Level 9.2 Alkaline Phosphatase 173 Aspartate Amino Transf (AST/SGOT) 11 Alanine Aminotransferase (ALT/SGPT) 16 Total Bilirubin 1.3 Sodium Level 138 Potassium Level 5.9 Chloride Level 104 Carbon Dioxide Level 19.0 Anion Gap 15 Estimat Glomerular Filtration Rate 6 Total Creatine Kinase 57 Troponin I 0.02 Result Diagram: 07/15/17224907/15/172249 Imaging Last Impressions Chest X-Ray 07/15/172249 Signed Impressions: Service Date/Time: June 22:56 - CONCLUSION: 1. Cardiomegaly and left retrocardiac density, likely atelectasis. Sacha Kumar MD Caprini VTE Risk Assessment Caprini VTE Risk Assessment: Mod/High Risk (score >= 2) Caprini Risk Assessment Model Point Value = 1 Point Value = 2 Point Value = 3 Point Value = 5 Age 41-60 Minor surgery BMI > 25 kg/m2 Swollen legs Varicose veins or History of unexplained or recurrent spontaneous Oral contraceptives or hormone replacement Sepsis (< 1 month) Serious lung disease, including pneumonia (< 1 month) Abnormal pulmonary function Acute myocardial infarction Congestive heart failure (< 1 month) History of inflammatory bowel disease Medical patient at bed rest Age 61-74 Arthroscopic surgery Major open surgery (> 45 min) Laparoscopic surgery (> 45 min) Malignancy Confined to bed (> 72 hours) Immobilizing plaster cast Central venous access Age >= 75 History of VTE Family history of VTE Factor V Leiden Prothrombin [id number] Lupus anticoagulant Anticardiolipin antibodies Elevated serum homocysteine Heparin-induced thrombocytopenia Other congenital or acquired thrombophilia Stroke (< 1 month) Elective arthroplasty Hip, pelvis, or leg fracture Acute spinal cord injury (< 1 month) Prophylaxis Regimen Total Risk Factor Score Risk Level Prophylaxis Regimen 0-1 Low Early ambulation 2 Moderate Order ONE of the following: *Sequential Compression Device (SCD) *Heparin 5000 units SQ BID 3-4 Higher Order ONE of the following medications: *Heparin 5000 units SQ TID *Enoxaparin/Lovenox 40 mg SQ daily (WT < 150 kg, CrCl > 30 mL/min) *Enoxaparin/Lovenox 30 mg SQ daily (WT < 150 kg, CrCl > 10-29 mL/min) *Enoxaparin/Lovenox 30 mg SQ BID (WT < 150 kg, CrCl > 30 mL/min) AND/OR *Sequential Compression Device (SCD) 5 or more Highest Order ONE of the following medications: *Heparin 5000 units SQ TID (Preferred with Epidurals) *Enoxaparin/Lovenox 40 mg SQ daily (WT < 150 kg, CrCl > 30 mL/min) *Enoxaparin/Lovenox 30 mg SQ daily (WT < 150 kg, CrCl > 10-29 mL/min) *Enoxaparin/Lovenox 30 mg SQ BID (WT < 150 kg, CrCl > 30 mL/min) AND *Sequential Compression Device (SCD) Assessment and Plan Assessment and Plan Assessment: 62yM with ESRD presents with new-onset symptomatic Bradycardia. Will place in ICU on dopamine infusion to maintain adequate perfusion. consult cardiology for evaluation of bradycardia and possible need for permanent pacemaker. unlikely to be medication related given he lives in SNF and receives meds per SNF staff. Remains critically ill and requires iv dopamine to maintain adequate perfusion and HR. Symptomatic Bradycardia - dopamine infusion - may require transvenous pacing if this does not adequately control his HR/BP - cardiology consult: Dr. Lujan to eval - trend troponins - NPO for possible intervention ESRD - consult nephrology to maintain IHD as scheduled SCDs pulmonary toilet hold pharmacologic DVT prophylaxis until decision over intervention is made. Admit to ICU. Critical Care time: 31 minutes, exclusive of separately billable procedures. Vijay Gordon MD Jul 16, 2017 01:06
[2017-07-16] MEDS: CHLORHEXIDINE GLUCONATE 2 % 1 PACK (2 CLOTHS) TOP SCH (04:00)
[2017-07-16] MEDS: DOCUSATE SODIUM 50 MG/SENNA 8.6 MG TAB PO SCH ×2 (09:00→20:35)
[2017-07-16] MEDS ORDERED: SODIUM CHLOR 0.9% 1000 ML INJ 1,000 ML IV PRN (09:14)
[2017-07-16] MEDS ORDERED: SODIUM CHLOR 0.9% 1000 ML INJ 1,000 ML OTHER PRN ×2 (09:14)
[2017-07-16] MEDS ORDERED: GENTAMICIN SULFATE (DIALYSIS USE ONLY) 20 MG/2 ML VIAL OTHER PRN (09:15)
[2017-07-16] MEDS ORDERED: MANNITOL 12.5 GM/50 ML VIAL IV PRN (09:15)
[2017-07-16] MEDS ORDERED: diphenhydrAMINE HCL 25 MG CAP PO PRN (09:15)
[2017-07-16] MEDS ORDERED: HEPARIN SODIUM - IV 10,000 UNITS/10 ML VIAL PRN (09:15)
[2017-07-16] MEDS ORDERED: SODIUM CHLORIDE 0.9% FLUSH 10 ML FLUSH IV FLUSH PRN (09:15)
[2017-07-16] MEDS ORDERED: ALBUMIN 25% INJ 100 ML IV PRN (09:15)
[2017-07-16] MEDS ORDERED: NITROGLYCERIN 0.4 MG SL 25 TABS/BTL SL PRN (09:15)
[2017-07-16] MEDS ORDERED: HEPARIN SODIUM - IV 10,000 UNITS/10 ML VIAL IV FLUSH PRN (09:15)
[2017-07-16] MEDS ORDERED: GELATIN 12 MM/7 MM FOAM TOP PRN (09:15)
[2017-07-16] MEDS ORDERED: cloNIDine HCL 0.1 MG TAB PO PRN (09:15)
--- NOTE | 2017-07-16 10:36 | PD.CONS ---
HPI Service cardiology Consult Requested By Reason for Consult symptomatic bradycardia Primary Care Physician Suhas Roper M.D. History of Present Illness this is a 62 yo WM with history of chronic afib and ESRD who resides at an [facility], ; he was transferred to ED for bradycardia, HR in 30's. Dopamine was started in ED along with transcutaneous pacing; HR has improved and currently 80, SBP increasing. Patient was on diltiazem and has been held. He is quite somnolent and unable to answer questions. Unsure if he is regularly taking an anticoagulant for his afib. Troponin negative. creatinine and potassium elevated. (Gladys Bustamante) Review of Systems patient somnolent and unable to answer questions (Gladys Bustamante) Past Family Social History Allergies: Coded Allergies: bee venom protein (honey bee) (Unverified Allergy, Severe, Anaphylaxis, ) *MDRO Multi-Drug Resistant Organism (Verified Adverse Reaction, Unknown, 07/15/17) MRSA (leg/groin abscess) - 2006 *MRSA PCR negative 11/03/15 & 11/05/15. Pt does not require isolation for hx of MDRO prior to 11/05/15.* Uncoded Allergies: Contac cold medicine (Allergy, Severe, Hives, 01/08/17) allergy Past Medical History Atrial fibrillation Bilateral hip arthritis Anxiety Depression Prior myocardial infarction Congestive heart failure, unknown type CVA Dementia End-stage renal disease with intermittent hemodialysis Wednesday/Wednesday/Wednesday Past Surgical History Left forearm AV fistula Right shoulder surgery Right upper chest Vas-Cath Reported Medications Reported Meds & Active Scripts Active Reported Zofran (Ondansetron HCl) 4 Mg Tab 4 Mg PO Q8HR PRN Diphenhydramine (Diphenhydramine HCl) 25 Mg Cap 25 Mg PO Q12H PRN Sensipar (Cinacalcet) 60 Mg Tab 120 Mg PO HS Renvela (Sevelamer Carbonate) 800 Mg Tab 800 Mg PO TID Jennifer-Phani (B-Complex W/ C & Folic Acid) 1 Tab 1 Tab PO DAILY Lopressor (Metoprolol Tartrate) 100 Mg Tab 100 Mg PO BID Losartan (Losartan Potassium) 50 Mg Tab 50 Mg PO DAILY Diltiazem ER 12 HR (Diltiazem HCl) 120 Mg Caper 240 Mg PO DAILY Citalopram (Citalopram Hydrobromide) 20 Mg Tab 20 Mg PO DAILY Active Ordered Medications Current Medications Medications (Trade) Dose Ordered Sig/Neeraj Route Start Time Stop Time Status Last Admin (NS Flush) 2 ml UNSCH PRN IVF 07/15/17 23:00 Dopamine HCl 800 mg/Dextrose 250 ml @ 4.95 mls/hr TITRATE PRN IV 07/15/17 23:45 07/16/17 00:17 (Brethine Inj) 1 mg UNSCH PRN SQ 07/15/17 23:45 (D50w (Vial) Inj) 25 ml UNSCH PRN IV PUSH 07/16/17 01:00 (NovoLIN R SUPPLEMENTAL SCALE) 1 Q6HR SQ 07/16/17 06:00 (Tylenol) 650 mg Q6H PRN PO 07/16/17 01:00 (Zofran Inj) 4 mg Q6H PRN IV PUSH 07/16/17 01:00 (Duoneb Neb) 1 ampule Q2HR NEB PRN INH 07/16/17 01:00 Miscellaneous Information 1 Q361D XX 07/16/17 01:00 (Chlorhexidine 2% Cloth) 3 pack Taper DAILY@04 TOP 07/16/17 04:00 07/12/18 03:59 (Chlorhexidine 2% Cloth) 3 pack UNSCH PRN TOP 07/16/17 01:00 (Aparna-Colace) 1 tab BID PO 07/16/17 09:00 07/16/17 09:00 Sodium Chloride 1,000 ml @ 0 mls/hr Q0M PRN OTHER 07/16/17 09:14 (Heparin Inj) 8,000 units UNSCH PRN IV FLUSH 07/16/17 09:15 Sodium Chloride 1,000 ml @ 200 mls/hr Q5H PRN IV 07/16/17 09:14 Sodium Chloride 1,000 ml @ 0 mls/hr Q0M PRN OTHER 07/16/17 09:14 (Mannitol Inj) 12.5 gm UNSCH PRN IV 07/16/17 09:15 Albumin Human 100 ml @ 60 mls/hr UNSCH PRN IV 07/16/17 09:15 (NS Flush) 5 ml UNSCH PRN IV FLUSH 07/16/17 09:15 (Heparin Inj) UNSCH PRN .XX 07/16/17 09:15 (Gentamicin (Dialysis) Inj) 20 mg UNSCH PRN OTHER 07/16/17 09:15 (Zofran Inj) 4 mg UNSCH PRN IV PUSH 07/16/17 09:15 (Tylenol) 650 mg UNSCH PRN PO 07/16/17 09:15 (Benadryl) 25 mg UNSCH PRN PO 07/16/17 09:15 (Nitrostat Sl) 0.4 mg UNSCH PRN SL 07/16/17 09:15 (Catapres) 0.1 mg UNSCH PRN PO 07/16/17 09:15 (Gelfoam 12 Mm/7 Mm Top) 1 foam UNSCH PRN TOP 07/16/17 09:15 Family History Reviewed in the chart and found to be noncontributory to his acute illness Social History Atrial fibrillation Bilateral hip arthritis Anxiety Rare alcohol use, never smoked (Gladys Bustamante) Physical Exam Vital Signs Vital Signs Date Time Temp Pulse Resp B/P (MAP) Pulse Ox O2 Delivery O2 Flow Rate FiO2 07/16/17 08:31 95 Nasal Cannula 3.00 07/16/17 08:00 85 07/16/17 07:00 98.1 87 23 167/71 (103) 93 07/16/17 06:00 86 07/16/17 04:00 56 07/16/17 03:00 97.8 63 19 126/65 (85) 96 07/16/17 02:55 96 Nasal Cannula 3.00 07/16/17 02:05 97.7 58 24 129/68 (88) 94 07/16/17 02:00 66 07/16/17 01:46 07/16/17 01:33 57 20 113/65 (81) 99 Nasal Cannula 2.00 07/16/17 01:18 59 17 104/60 (75) 97 Nasal Cannula 2.00 07/16/17 00:31 52 17 116/57 (76) 96 Nasal Cannula 2.00 07/16/17 00:18 60 17 110/71 (84) 97 Nasal Cannula 2.00 07/16/17 00:12 60 17 122/79 (93) 96 Nasal Cannula 2.00 07/15/17 23:57 60 17 107/67 (80) 97 Nasal Cannula 2.00 07/15/17 23:40 60 17 159/70 (99) 98 Nasal Cannula 2.00 07/15/17 23:26 43 17 90/57 (68) 98 Nasal Cannula 2.00 07/15/17 23:12 42 17 81/56 (64) 99 Nasal Cannula 2.00 07/15/17 22:58 43 17 116/73 (87) 99 Nasal Cannula 2.00 07/15/17 22:51 99 Nasal Cannula 2.00 07/15/17 22:51 20 99 Nasal Cannula 2.00 07/15/17 22:49 50 20 99 Nasal Cannula 2.00 07/15/17 22:41 98.0 54 20 111/74 (86) 99 07/15/17 22:30 98 4.00 07/15/17 22:30 98 Nasal Cannula 4.00 Physical Exam GENERAL: somnolent SKIN: Warm and dry. HEAD: Atraumatic. Normocephalic. EYES: Pupils equal and round. ENT: No nasal bleeding or discharge. t. NECK: Trachea midline. No JVD. CARDIOVASCULAR: Irregular rate and rhythm, systolic murmur RESPIRATORY: No accessory muscle use. Clear to auscultation. Breath sounds equal bilaterally. GASTROINTESTINAL: Abdomen soft, non-tender, nondistended. MUSCULOSKELETAL: Extremities without clubbing, cyanosis, or edema. No obvious deformities. NEUROLOGICAL: somnolent Laboratory Laboratory Tests Test 07/15/17 22:50 07/16/17 02:00 07/16/17 04:19 White Blood Count 6.9 Red Blood Count 4.44 Hemoglobin 13.6 Hematocrit 42.9 Mean Corpuscular Volume 96.6 Mean Corpuscular Hemoglobin 30.7 Mean Corpuscular Hemoglobin Concent 31.8 Red Cell Distribution Width 19.6 Platelet Count 183 Mean Platelet Volume 8.1 Neutrophils (%) (Auto) 66.3 Lymphocytes (%) (Auto) 18.3 Monocytes (%) (Auto) 12.5 Eosinophils (%) (Auto) 1.8 Basophils (%) (Auto) 1.1 Neutrophils # (Auto) 4.5 Lymphocytes # (Auto) 1.3 Monocytes # (Auto) 0.9 Eosinophils # (Auto) 0.1 Basophils # (Auto) 0.1 CBC Comment DIFF FINAL Differential Comment Prothrombin Time 17.9 Prothromb Time International Ratio 1.6 Activated Partial Thromboplast Time 34.0 Blood Urea Nitrogen 54 Creatinine 9.63 Random Glucose 100 Total Protein 7.1 Albumin 3.2 Calcium Level 9.2 Alkaline Phosphatase 173 Aspartate Amino Transf (AST/SGOT) 11 Alanine Aminotransferase (ALT/SGPT) 16 Total Bilirubin 1.3 Sodium Level 138 Potassium Level 5.9 Chloride Level 104 Carbon Dioxide Level 19.0 Anion Gap 15 Estimat Glomerular Filtration Rate 6 Total Creatine Kinase 57 Troponin I 0.02 LESS THAN 0.02 Nasal Screen MRSA (PCR) MRSA NOT DETECTED (Gladys Bustamante) Result Diagram: 07/15/17224907/15/172249 Imaging Last 24 hours Impressions Chest X-Ray 07/15/172249 Signed Impressions: Service Date/Time: June 22:56 - CONCLUSION: 1. Cardiomegaly and left retrocardiac density, likely atelectasis. Sacha Kumar MD (Gladys Bustamante) Assessment and Plan Problem List: (1) A-fib ICD Codes: I48.91 - Atrial fibrillation Status: Chronic (2) Symptomatic bradycardia ICD Codes: R00.1 - Bradycardia, unspecified Status: Acute Assessment and Plan This is a 62 yo WM with ESRD and chronic afib who presented with symptomatic bradycardia. Dopamine drip started as well as transcutaneous pacing. bradycardia- HR improving. wean dopamine gtt. continue to hold diltiazem, continue transcutaneous pacing and monitor HR, consider PPM if tachy-martha syndrome. afib, chronic- rate controlled. CHADS-VASC > 3, will require anticoagulation when appropriate 2D echo (Gladys Bustamante) Assessment and Plan agree with above. off cardizem PO. off dopamine gtt. HR stable. will try to avoid PPM unless tachy-martha further. hold anticoagulation until decision on +/- PPM made + murmur - probable . await echo ok to transfer to [facility] (Leland Lujan MD) Gladys Bustamante Jul 16, 2017 10:36 Leland Lujan MD Jul 16, 2017 14:33
--- NOTE | 2017-07-16 10:52 | PD.CONS ---
HPI Service Nephrology Consult Requested By Reason for Consult ESRD on HD Primary Care Physician Suhas Roper M.D. History of Present Illness This is a 62 y/o male with ESRD. He was sent in for bradycardia, rate in 30s. Hx A fib, he is in A fib on arrival. Started on dopamine and transcutaneous pacing, these have been stopped on my evaluation. His heart rate is in 80s. He dialyzes MWF, is due today. K was 5.9, he was given Kayexalate, has not been rechecked. He is lethargic today, on supplemental oxygen. PMH of CHF, CVA, metabolic bone disorder, and secondary hyperparathyroidism. We were consulted for management. (Chinyere Rodriguez) Review of Systems ROS Limitations: Altered Mental Status (Chinyere Rodriguez) Past Family Social History Allergies: Coded Allergies: bee venom protein (honey bee) (Unverified Allergy, Severe, Anaphylaxis, ) *MDRO Multi-Drug Resistant Organism (Verified Adverse Reaction, Unknown, 07/15/17) MRSA (leg/groin abscess) - 2006 *MRSA PCR negative 11/03/15 & 11/05/15. Pt does not require isolation for hx of MDRO prior to 11/05/15.* Uncoded Allergies: Contac cold medicine (Allergy, Severe, Hives, 01/08/17) allergy Past Medical History ESRD on HD MWF Atrial fibrillation Bilateral hip arthritis Metabolic bone disorder Secondary Hyperparathyroidism Anxiety Depression Prior myocardial infarction Congestive heart failure, unknown type CVA Dementia Past Surgical History Left forearm AV fistula Right shoulder surgery Right upper chest Vas-Cath with removal Reported Medications Zofran (Ondansetron HCl) 4 Mg Tab 4 Mg PO Q8HR PRN Diphenhydramine (Diphenhydramine HCl) 25 Mg Cap 25 Mg PO Q12H PRN Sensipar (Cinacalcet) 60 Mg Tab 120 Mg PO HS Renvela (Sevelamer Carbonate) 800 Mg Tab 800 Mg PO TID Jennifer-Phani (B-Complex W/ C & Folic Acid) 1 Tab 1 Tab PO DAILY Lopressor (Metoprolol Tartrate) 100 Mg Tab 100 Mg PO BID Losartan (Losartan Potassium) 50 Mg Tab 50 Mg PO DAILY Diltiazem ER 12 HR (Diltiazem HCl) 120 Mg Caper 240 Mg PO DAILY Citalopram (Citalopram Hydrobromide) 20 Mg Tab 20 Mg PO DAILY Active Ordered Medications Current Medications Medications (Trade) Dose Ordered Sig/Neeraj Route Start Time Stop Time Status Last Admin (NS Flush) 2 ml UNSCH PRN IVF 07/15/17 23:00 Dopamine HCl 800 mg/Dextrose 250 ml @ 4.95 mls/hr TITRATE PRN IV 07/15/17 23:45 07/16/17 00:17 (Brethine Inj) 1 mg UNSCH PRN SQ 07/15/17 23:45 (D50w (Vial) Inj) 25 ml UNSCH PRN IV PUSH 07/16/17 01:00 (NovoLIN R SUPPLEMENTAL SCALE) 1 Q6HR SQ 07/16/17 06:00 (Tylenol) 650 mg Q6H PRN PO 07/16/17 01:00 (Zofran Inj) 4 mg Q6H PRN IV PUSH 07/16/17 01:00 (Duoneb Neb) 1 ampule Q2HR NEB PRN INH 07/16/17 01:00 Miscellaneous Information 1 Q361D XX 07/16/17 01:00 (Chlorhexidine 2% Cloth) 3 pack Taper DAILY@04 TOP 07/16/17 04:00 07/12/18 03:59 (Chlorhexidine 2% Cloth) 3 pack UNSCH PRN TOP 07/16/17 01:00 (Aparna-Colace) 1 tab BID PO 07/16/17 09:00 07/16/17 09:00 Sodium Chloride 1,000 ml @ 0 mls/hr Q0M PRN OTHER 07/16/17 09:14 (Heparin Inj) 8,000 units UNSCH PRN IV FLUSH 07/16/17 09:15 Sodium Chloride 1,000 ml @ 200 mls/hr Q5H PRN IV 07/16/17 09:14 Sodium Chloride 1,000 ml @ 0 mls/hr Q0M PRN OTHER 07/16/17 09:14 (Mannitol Inj) 12.5 gm UNSCH PRN IV 07/16/17 09:15 Albumin Human 100 ml @ 60 mls/hr UNSCH PRN IV 07/16/17 09:15 (NS Flush) 5 ml UNSCH PRN IV FLUSH 07/16/17 09:15 (Heparin Inj) UNSCH PRN .XX 07/16/17 09:15 (Gentamicin (Dialysis) Inj) 20 mg UNSCH PRN OTHER 07/16/17 09:15 (Zofran Inj) 4 mg UNSCH PRN IV PUSH 07/16/17 09:15 (Tylenol) 650 mg UNSCH PRN PO 07/16/17 09:15 (Benadryl) 25 mg UNSCH PRN PO 07/16/17 09:15 (Nitrostat Sl) 0.4 mg UNSCH PRN SL 07/16/17 09:15 (Catapres) 0.1 mg UNSCH PRN PO 07/16/17 09:15 (Gelfoam 12 Mm/7 Mm Top) 1 foam UNSCH PRN TOP 07/16/17 09:15 Family History Unable to obtain Social History Non smoking Resides at nursing facility Needs some assistance with ADLs He is disabled Full code (Chinyere Rodriguez) Physical Exam Vital Signs Vital Signs Date Time Temp Pulse Resp B/P (MAP) Pulse Ox O2 Delivery O2 Flow Rate FiO2 07/16/17 10:00 63 07/16/17 08:31 95 Nasal Cannula 3.00 07/16/17 08:00 85 07/16/17 07:00 98.1 87 23 167/71 (103) 93 07/16/17 06:00 86 07/16/17 04:00 56 07/16/17 03:00 97.8 63 19 126/65 (85) 96 07/16/17 02:55 96 Nasal Cannula 3.00 07/16/17 02:05 97.7 58 24 129/68 (88) 94 07/16/17 02:00 66 07/16/17 01:46 07/16/17 01:33 57 20 113/65 (81) 99 Nasal Cannula 2.00 07/16/17 01:18 59 17 104/60 (75) 97 Nasal Cannula 2.00 07/16/17 00:31 52 17 116/57 (76) 96 Nasal Cannula 2.00 07/16/17 00:18 60 17 110/71 (84) 97 Nasal Cannula 2.00 07/16/17 00:12 60 17 122/79 (93) 96 Nasal Cannula 2.00 07/15/17 23:57 60 17 107/67 (80) 97 Nasal Cannula 2.00 07/15/17 23:40 60 17 159/70 (99) 98 Nasal Cannula 2.00 07/15/17 23:26 43 17 90/57 (68) 98 Nasal Cannula 2.00 07/15/17 23:12 42 17 81/56 (64) 99 Nasal Cannula 2.00 07/15/17 22:58 43 17 116/73 (87) 99 Nasal Cannula 2.00 07/15/17 22:51 99 Nasal Cannula 2.00 07/15/17 22:51 20 99 Nasal Cannula 2.00 07/15/17 22:49 50 20 99 Nasal Cannula 2.00 07/15/17 22:41 98.0 54 20 111/74 (86) 99 07/15/17 22:30 98 4.00 07/15/17 22:30 98 Nasal Cannula 4.00 Physical Exam GENERAL: Disheveled and unkempt middle-aged male, lying in bed, moving around but somnolent HEENT: Normocephalic. Atraumatic. PERRLA Mucous membranes are moist NECK: Trachea is midline. There is no JVD. CHEST: Equal chest rise. Nasal cannula oxygen CARDIOVASCULAR: Rate in 80s. irregularly irregular rhythm. Off dopamine infusion. Blood pressure 110s systolic. ABDOMEN: Soft, NT/ND. No guarding. MUSCULOSKELETAL: Pulses 2+. No peripheral edema. Scattered abrasions lower ext , AVF left arm + thrill/bruit NEUROLOGICAL: Sleepy, opens eyes to name. Moves all extremities. No focal deficits. Laboratory Laboratory Tests Test 07/15/17 22:50 07/16/17 02:00 07/16/17 04:19 White Blood Count 6.9 Red Blood Count 4.44 Hemoglobin 13.6 Hematocrit 42.9 Mean Corpuscular Volume 96.6 Mean Corpuscular Hemoglobin 30.7 Mean Corpuscular Hemoglobin Concent 31.8 Red Cell Distribution Width 19.6 Platelet Count 183 Mean Platelet Volume 8.1 Neutrophils (%) (Auto) 66.3 Lymphocytes (%) (Auto) 18.3 Monocytes (%) (Auto) 12.5 Eosinophils (%) (Auto) 1.8 Basophils (%) (Auto) 1.1 Neutrophils # (Auto) 4.5 Lymphocytes # (Auto) 1.3 Monocytes # (Auto) 0.9 Eosinophils # (Auto) 0.1 Basophils # (Auto) 0.1 CBC Comment DIFF FINAL Differential Comment Prothrombin Time 17.9 Prothromb Time International Ratio 1.6 Activated Partial Thromboplast Time 34.0 Blood Urea Nitrogen 54 Creatinine 9.63 Random Glucose 100 Total Protein 7.1 Albumin 3.2 Calcium Level 9.2 Alkaline Phosphatase 173 Aspartate Amino Transf (AST/SGOT) 11 Alanine Aminotransferase (ALT/SGPT) 16 Total Bilirubin 1.3 Sodium Level 138 Potassium Level 5.9 Chloride Level 104 Carbon Dioxide Level 19.0 Anion Gap 15 Estimat Glomerular Filtration Rate 6 Total Creatine Kinase 57 Troponin I 0.02 LESS THAN 0.02 Nasal Screen MRSA (PCR) MRSA NOT DETECTED (Chinyere Rodriguez) Result Diagram: 07/15/17224907/15/172249 Imaging Last 72 hours Impressions Chest X-Ray 07/15/172249 Signed Impressions: Service Date/Time: , July 15, 2017 22:56 - CONCLUSION: 1. Cardiomegaly and left retrocardiac density, likely atelectasis. Sacha Kumar MD (Chinyere Rodriguez) Assessment and Plan Problem List: (1) ESRD on hemodialysis ICD Codes: N18.6 - End-stage renal disease on hemodialysis; Z99.2 - Dependence on renal dialysis Status: Chronic Plan: Resume HD MWF, he is due today To be dialyzed on a 1K bath Repeat labs in AM High protein, low K diet ordered Avoid IVF Has AV access left arm (2) Symptomatic bradycardia ICD Codes: R00.1 - Bradycardia, unspecified Status: Acute Plan: Cardiology is following transcutaneous pacing and dopamine have been stopped monitor clinically may need pacemaker heart rate has improved (3) Hyperkalemia ICD Codes: E87.5 - Hyperkalemia Status: Acute Plan: Treated with Kayexalate. I will give IV insulin and bicarbonate Should also correct with dialysis Low k diet repeat labs in AM (4) Metabolic bone disease ICD Codes: M89.8X9 - Metabolic bone disease Status: Acute Plan: Resume Renvela, intermittently evaluate phosphorus level On Sensipar for secondary hyperparathyroidism (5) Hypertension ICD Codes: I10 - Hypertension Status: Chronic Plan: Medications held Cardiology to manage (Chinyere Rodriguez) Assessment and Plan patient was seen and examined. Seen during dialysis. Monitor potassium. Cardiology following for bradycardia. (Varun Chisholm MD) Chinyere Rodriguez Jul 16, 2017 10:51 Varun Chisholm MD Jul 16, 2017 14:41
[2017-07-16] MEDS ORDERED: SODIUM BICARBONATE 8.4% INJ 50 MEQ/50 ML SYR IV PUSH ONE (11:00)
[2017-07-16] MEDS: INSULIN HUMAN REGULAR 1,000 UNITS/10 ML VIAL IV PUSH ONE (11:00)
[2017-07-16] MEDS: INSULIN NovoLIN REGULAR SUPPLEMENTAL SCALE SQ SCH ×5 (11:33→23:50)
[2017-07-16] MEDS: SEVELAMER CARBONATE 800 MG TAB PO SCH ×2 (12:00→15:36)
[2017-07-16] MEDS: CINACALCET HYDROCHLORIDE 30 MG TAB PO SCH (15:36)
--- NOTE | 2017-07-16 21:25 | EKG ---
Date Performed: 07/15/2017 Time Performed: 22:41:35 PTAGE: 62 years EKG: ATRIAL FIBRILLATION WITH SLOW VENTRICULAR RESPONSE PATTERN CONSISTENT WITH PULMONARY DISEAS E POSSIBLE RIGHT VENTRICULAR HYPERTROPHY SEPTAL MYOCARDIAL INFARCTION ABNORMAL ECG PREVIOUS TRACING : 03/15/2017 17.33 COMPARED WITH PREVIOUS EKG SLOW VENTRICULAR RESPONSE TO AT RIAL FIBRILLATION IS NEW DOCTOR: Jermaine Browne Interpretating Date/Time 07/16/2017 21:24:52
[2017-07-17] VITALS (27 sets, daily range): BP systolic 104–138; BP diastolic 66–93; PULSE 88–114; RESP 17–22; TEMP 98–98.7; O2SAT 95–98
[2017-07-17] MEDS: CHLORHEXIDINE GLUCONATE 2 % 1 PACK (2 CLOTHS) TOP SCH (04:00)
[2017-07-17] MEDS: INSULIN NovoLIN REGULAR SUPPLEMENTAL SCALE SQ SCH ×3 (06:00→18:00)
[2017-07-17 07:07] LABS: HEMATOCRIT 38.4 % (39.0-51.0); MEAN CELL VOLUME 94.1 FL (80.0-100.0); MEAN CORPUSCULAR HEMOGLOBIN 30.7 PG (27.0-34.0); MEAN CORPUSCULAR HGB CONC 32.7 % (32.0-36.0); PLATELET COUNT 148 TH/MM3 (150-450); RED BLOOD COUNT 4.08 MIL/MM3 (4.50-5.90); RED CELL DISTRIBUTION WIDTH 19.3 % (11.6-17.2); REVIEW FLAG FINAL; WHITE BLOOD COUNT 7.2 TH/MM3 (4.0-11.0)
[2017-07-17 07:51] LABS: BICARBONATE 26.9 MEQ/L (21.0-32.0); POTASSIUM 4.4 MEQ/L (3.5-5.1)
[2017-07-17] MEDS: DOCUSATE SODIUM 50 MG/SENNA 8.6 MG TAB PO SCH (08:49)
[2017-07-17] MEDS: SEVELAMER CARBONATE 800 MG TAB PO SCH ×3 (08:49→17:59)
--- NOTE | 2017-07-17 12:30 | HHI.PR ---
Subjective Remarks Follow-up symptomatic bradycardia/end-stage renal disease on hemodialysis 07/17/17-patient seen and examined, denies any chest pain or shortness of breath. Currently in sinus rhythm. 2-D echo being performed Objective Vitals Vital Signs Date Time Temp Pulse Resp B/P (MAP) Pulse Ox O2 Delivery O2 Flow Rate FiO2 07/17/17 10:00 105 07/17/17 09:00 109 07/17/17 08:53 97 Nasal Cannula 2.00 07/17/17 08:43 98.0 104 20 114/78 (90) 96 07/17/17 08:00 102 07/17/17 07:00 101 07/17/17 06:00 98 07/17/17 05:00 111 07/17/17 04:00 98.2 102 22 119/82 (94) 95 07/17/17 04:00 102 07/17/17 04:00 Nasal Cannula 2.00 07/17/17 03:00 89 07/17/17 02:00 98 07/17/17 01:00 92 07/17/17 00:00 98.0 88 22 110/75 (87) 97 07/17/17 00:00 88 07/17/17 00:00 Nasal Cannula 2.00 07/16/17 23:00 82 07/16/17 22:00 85 07/16/17 21:00 90 07/16/17 20:00 92 07/16/17 20:00 98.1 92 22 118/77 (91) 95 07/16/17 16:00 99 07/16/17 15:00 98.2 82 20 121/57 (78) 98 07/16/17 14:00 82 I/O 07/16/17 07/16/17 07/16/17 07/17/17 07/17/17 07/17/17 07:00 15:00 23:00 07:00 15:00 23:00 Intake Total 0 ml 240 ml Output Total 0 ml 0 ml Balance 0 ml 240 ml Intake Oral 0 ml 240 ml Output Urine Total 0 ml 0 ml Stool Total 0 ml # Bowel Movements 0 Result Diagram: 07/17/17 0514 07/17/1714 Imaging Last Impressions Chest X-Ray 07/15/17 7340 Signed Impressions: Service Date/Time: June 22:56 - CONCLUSION: 1. Cardiomegaly and left retrocardiac density, likely atelectasis. Sacha Kumar MD Objective Remarks GENERAL: NAD SKIN: Warm and dry. HEAD: Normocephalic. EYES: No scleral icterus. No injection or drainage. NECK: Supple, trachea midline. No JVD or lymphadenopathy. CARDIOVASCULAR: Regular rate and rhythm without murmurs, gallops, or rubs. RESPIRATORY: Breath sounds equal bilaterally. No accessory muscle use. GASTROINTESTINAL: Abdomen soft, non-tender, nondistended. MUSCULOSKELETAL: No cyanosis, or edema. BACK: Nontender without obvious deformity. No CVA tenderness. A/P Problem List: (1) Symptomatic bradycardia ICD Code: R00.1 - Bradycardia, unspecified Status: Acute (2) ESRD on hemodialysis ICD Code: N18.6 - End-stage renal disease on hemodialysis; Z99.2 - Dependence on renal dialysis Status: Chronic Assessment and Plan 62-year-old man with Symptomatic bradycardia Now resolved Patient is currently off amiodarone and Dopamine Continue with post transcutaneous pacing 2-D echo pending for further evaluation for possible PPM Appreciate input from cardiology Aortic stenosis 2-D echo pending for further evaluation End-stage renal disease on hemodialysis Appreciate input from nephrology On hemodialysis Wednesday Continue with Renvela Metabolic bone disease Continue with Renvela Secondary Hyperparathyroidism Continue with Sensipar Hypertension Currently normotensive on no medication Hyperkalemia Resolved status post AlisxalaSacha Fortune MD Jul 17, 2017 12:30
--- NOTE | 2017-07-17 14:13 | HHI.NPPN ---
Subjective History of Present Illness 62 y/o male with ESRD on HD 3 times a week. He was sent in for bradycardia, rate in 30s. Hx A fib, he is in A fib on arrival. Additional Remarks Patient is alert, no SOB, no dizziness. Objective Data Data Vital Signs Date Time Temp Pulse Resp B/P (MAP) Pulse Ox O2 Delivery O2 Flow Rate FiO2 07/17/17 13:00 104 07/17/17 12:30 98.3 95 17 104/66 (79) 98 07/17/17 12:00 105 07/17/17 11:00 107 07/17/17 10:00 105 07/17/17 09:00 109 07/17/17 08:53 97 Nasal Cannula 2.00 07/17/17 08:43 98.0 104 20 114/78 (90) 96 07/17/17 08:00 102 07/17/17 07:00 101 07/17/17 06:00 98 07/17/17 05:00 111 07/17/17 04:00 98.2 102 22 119/82 (94) 95 07/17/17 04:00 102 07/17/17 04:00 Nasal Cannula 2.00 07/17/17 03:00 89 07/17/17 02:00 98 07/17/17 01:00 92 07/17/17 00:00 98.0 88 22 110/75 (87) 97 07/17/17 00:00 88 07/17/17 00:00 Nasal Cannula 2.00 07/16/17 23:00 82 07/16/17 22:00 85 07/16/17 21:00 90 07/16/17 20:00 92 07/16/17 20:00 98.1 92 22 118/77 (91) 95 07/16/17 16:00 99 07/16/17 15:00 98.2 82 20 121/57 (78) 98 -: 07/17/17 0514 07/17/17513 Physical Exam General Appearance: No Acute Distress, Comfortable Eyes Eye Exam: Pupils Equal Throat Throat Exam: Oral Mucosa [place] & Moist Pulmonary Resp Exam: Breath Sounds Equal, No Distress, Rhonchi, Decreased Bases Cardiology CV Exam: Normal Sinus Rhythm, Bradycardia Gastrointestinal/Abdomen GI Exam: Soft, Non-Tender, Bowel Sounds Present Genitourinary Exam: Clear Urine Extremeties Extremities Exam: Moderate Edema Neurologic Neuro Exam: Alert, Awake, Oriented Assessment/Plan Problem List: (1) ESRD on hemodialysis ICD Codes: N18.6 - End-stage renal disease on hemodialysis; Z99.2 - Dependence on renal dialysis Status: Chronic Plan: HD done yesterday, tolerated well. BP and HR much better. Repeat labs in AM High protein, low K diet ordered Avoid IVF Has AV access left arm (2) Symptomatic bradycardia ICD Codes: R00.1 - Bradycardia, unspecified Status: Acute Plan: Cardiology is following transcutaneous pacing and dopamine have been stopped monitor clinically may need pacemaker heart rate has improved (3) Hyperkalemia ICD Codes: E87.5 - Hyperkalemia Status: Acute Plan: Treated with Kayexalate. I will give IV insulin and bicarbonate Should also correct with dialysis Low k diet repeat labs in AM (4) Metabolic bone disease ICD Codes: M89.8X9 - Metabolic bone disease Status: Acute Plan: Resume Renvela, intermittently evaluate phosphorus level On Sensipar for secondary hyperparathyroidism (5) Hypertension ICD Codes: I10 - Hypertension Status: Chronic Plan: Medications held Cardiology to manage Kiah Cueto MD Jul 17, 2017 14:13
--- NOTE | 2017-07-17 15:03 | PD.CARD.PN ---
Subjective Subjective Remarks Pt denies sx; rates reasonable on tele Objective Medications Administered Medications Medications (Trade) Dose Ordered Sig/Neeraj Route PRN Reason Start Time Stop Time Status Last Admin Dose Admin Dextrose (D50w (Vial) Inj) 25 ml UNSCH PRN IV PUSH HYPOGLYCEMIA-SEE COMMENTS 07/16/17 01:00 07/16/17 13:04 Sevelamer Carbonate (Renvela) 800 mg TIDAC PO 07/16/17 12:00 07/17/17 12:38 Current Medications Medications (Trade) Dose Ordered Sig/Neeraj Route Start Time Stop Time Status Last Admin (NS Flush) 2 ml UNSCH PRN IVF 07/15/17 23:00 (Brethine Inj) 1 mg UNSCH PRN SQ 07/15/17 23:45 (D50w (Vial) Inj) 25 ml UNSCH PRN IV PUSH 07/16/17 01:00 07/16/17 13:04 (NovoLIN R SUPPLEMENTAL SCALE) 1 Q6HR SQ 07/16/17 06:00 (Tylenol) 650 mg Q6H PRN PO 07/16/17 01:00 (Zofran Inj) 4 mg Q6H PRN IV PUSH 07/16/17 01:00 (Duoneb Neb) 1 ampule Q2HR NEB PRN INH 07/16/17 01:00 Miscellaneous Information 1 Q361D XX 07/16/17 01:00 (Chlorhexidine 2% Cloth) 3 pack Taper DAILY@04 TOP 07/16/17 04:00 07/12/18 03:59 (Chlorhexidine 2% Cloth) 3 pack UNSCH PRN TOP 07/16/17 01:00 Sodium Chloride 1,000 ml @ 0 mls/hr Q0M PRN OTHER 07/16/17 09:14 (Heparin Inj) 8,000 units UNSCH PRN IV FLUSH 07/16/17 09:15 Sodium Chloride 1,000 ml @ 200 mls/hr Q5H PRN IV 07/16/17 09:14 Sodium Chloride 1,000 ml @ 0 mls/hr Q0M PRN OTHER 07/16/17 09:14 (Mannitol Inj) 12.5 gm UNSCH PRN IV 07/16/17 09:15 Albumin Human 100 ml @ 60 mls/hr UNSCH PRN IV 07/16/17 09:15 (NS Flush) 5 ml UNSCH PRN IV FLUSH 07/16/17 09:15 (Heparin Inj) UNSCH PRN .XX 07/16/17 09:15 (Gentamicin (Dialysis) Inj) 20 mg UNSCH PRN OTHER 07/16/17 09:15 (Zofran Inj) 4 mg UNSCH PRN IV PUSH 07/16/17 09:15 (Tylenol) 650 mg UNSCH PRN PO 07/16/17 09:15 (Benadryl) 25 mg UNSCH PRN PO 07/16/17 09:15 (Nitrostat Sl) 0.4 mg UNSCH PRN SL 07/16/17 09:15 (Catapres) 0.1 mg UNSCH PRN PO 07/16/17 09:15 (Gelfoam 12 Mm/7 Mm Top) 1 foam UNSCH PRN TOP 07/16/17 09:15 (Sensipar) 60 mg AC DINNER PO 07/16/17 16:00 (Renvela) 800 mg TIDAC PO 07/16/17 12:00 07/17/17 12:38 Vital Signs / I&O Vital Signs Date Time Temp Pulse Resp B/P (MAP) Pulse Ox O2 Delivery O2 Flow Rate FiO2 07/17/17 14:00 106 07/17/17 13:00 104 07/17/17 12:30 98.3 95 17 104/66 (79) 98 07/17/17 12:00 105 07/17/17 11:00 107 07/17/17 10:00 105 07/17/17 09:00 109 07/17/17 08:53 97 Nasal Cannula 2.00 07/17/17 08:43 98.0 104 20 114/78 (90) 96 07/17/17 08:00 102 07/17/17 07:00 101 07/17/17 06:00 98 07/17/17 05:00 111 07/17/17 04:00 98.2 102 22 119/82 (94) 95 07/17/17 04:00 102 07/17/17 04:00 Nasal Cannula 2.00 07/17/17 03:00 89 07/17/17 02:00 98 07/17/17 01:00 92 07/17/17 00:00 98.0 88 22 110/75 (87) 97 07/17/17 00:00 88 07/17/17 00:00 Nasal Cannula 2.00 07/16/17 23:00 82 07/16/17 22:00 85 07/16/17 21:00 90 07/16/17 20:00 92 07/16/17 20:00 98.1 92 22 118/77 (91) 95 07/16/17 16:00 99 I/O 07/16/17 07/16/17 07/16/17 07/17/17 07/17/17 07/17/17 07:00 15:00 23:00 07:00 15:00 23:00 Intake Total 0 ml 240 ml Output Total 0 ml 0 ml Balance 0 ml 240 ml Intake Oral 0 ml 240 ml Output Urine Total 0 ml 0 ml Stool Total 0 ml # Bowel Movements 0 Physical Exam GENERAL: This is a well-nourished, well-developed patient, in no apparent distress. CARDIOVASCULAR: mildly rapid rate and irregular rhythm without murmurs, gallops , or rubs. RESPIRATORY: Clear to auscultation. Breath sounds equal bilaterally. No wheezes , rales, or rhonchi. GASTROINTESTINAL: Abdomen soft, non-tender, nondistended. Normal, active bowel sounds MUSCULOSKELETAL: Extremities without clubbing, cyanosis, or edema. NEURO: Alert & Oriented x4 to person, place, time, situation. Moves all ext x4 Laboratory Laboratory Tests Test 07/16/17 17:05 07/17/17 05:14 Troponin I 0.02 NG/ML White Blood Count 7.2 TH/MM3 Red Blood Count 4.08 MIL/MM3 Hemoglobin 12.5 GM/DL Hematocrit 38.4 % Mean Corpuscular Volume 94.1 FL Mean Corpuscular Hemoglobin 30.7 PG Mean Corpuscular Hemoglobin Concent 32.7 % Red Cell Distribution Width 19.3 % Platelet Count 148 TH/MM3 Mean Platelet Volume 7.7 FL Blood Urea Nitrogen 52 MG/DL Creatinine 8.27 MG/DL Random Glucose 63 MG/DL Calcium Level 9.4 MG/DL Sodium Level 138 MEQ/L Potassium Level 4.4 MEQ/L Chloride Level 99 MEQ/L Carbon Dioxide Level 26.9 MEQ/L Anion Gap 12 MEQ/L Estimat Glomerular Filtration Rate 7 ML/MIN Imaging Last Impressions Chest X-Ray 07/15/17 650 Signed Impressions: Service Date/Time: June 22:56 - CONCLUSION: 1. Cardiomegaly and left retrocardiac density, likely atelectasis. Sacha Kumar MD Assessment and Plan Problem List: (1) A-fib ICD Codes: I48.91 - Atrial fibrillation Status: Chronic Plan: reasonable though imperfect rate control w/ some evidence of tacy-martha; holding off on anticoagulation for now in case pacer is needed; will leave meds as is for now and continue to monitor on tele. (2) Symptomatic bradycardia ICD Codes: R00.1 - Bradycardia, unspecified Status: Acute Plan: resolved Assessment and Plan would like him OOB w/ pt to better assess ambulatory rates. Hao Melendez MD Jul 17, 2017 15:03
--- NOTE | 2017-07-17 15:53 | ECHRPT ---
Indication: cardiomyopathy CONCLUSIONS The left ventricular systolic function is low normal with an estimated ejection fraction in the rang e of 50- 55%. Normal left ventricular size. Mild concentric left ventricular hypertrophy. No regional wall motion abnormalities are present. The left atrial size is moderately dilated. The right atrial size is mildly dilated. Mild mitral valve regurgitation. Diffuse calcification of the aortic valve. Moderate aortic valve regurgitation. There is moderate to severe tricuspid valve regurgitation. The estimated pulmonary arterial pressure is 51.2 mmHg. Mild pulmonary valve regurgitation. BP: / HR: Rhythm: Sinus MEASUREMENTS (Male / Female) Normal Values Technical Quality:Fair 2D ECHO LV Diastolic Diameter PLAX 4.1 cm 4.2 - 5.9 / 3.9 - 5.3 cm LV Systolic Diameter PLAX 3.0 cm IVS Diastolic Thickness 1.4 cm 0.6 - 1.0 / 0.6 - 0.9 cm LVPW Diastolic Thickness 1.4 cm 0.6 - 1.0 / 0.6 - 0.9 cm LV Relative Wall Thickness 0.7 RV Internal Dim ED PLAX 3.9 cm LVOT Diameter 2.1 cm LA Systolic Diameter LX 4.9 cm 3.0 - 4.0 / 2.7 - 3.8 cm LV Ejection Fraction MOD 4C 58.3 % LV Ejection Fraction 4C AL 58.1 % LA Volume Index 81.3 cm/m 16 - 28 cm/m M-MODE Aortic Root Diameter MM 4.0 cm LA Systolic Diameter MM 4.4 cm LA Ao Ratio MM 1.1 AV Cusp Separation MM 1.5 cm DOPPLER AV Peak Velocity 313.0 cm/s AV Peak Gradient 39.2 mmHg AV Mean Gradient 22.0 mmHg AV Velocity Time Integral 58.8 cm AI Peak Velocity 434.5 cm/s AI Peak Gradient 75.5 mmHg AI Pressure Half Time 197.0 ms LVOT Peak Velocity 106.0 cm/s LVOT Peak Gradient 4.5 mmHg LVOT Velocity Time Integral 19.2 cm AV Area Cont Eq vti 1.1 cm AV Area Cont Eq pk 1.2 cm MV Area PHT 4.2 cm LV E' Lateral Velocity 15.4 cm/s LV E' Septal Velocity 7.2 cm/s TR Peak Velocity 321.0 cm/s TR Peak Gradient 41.2 mmHg Right Atrial Pressure 10.0 mmHg Pulmonary Artery Systolic Pressu 51.2 mmHg Right Ventricular Systolic Press 51.2 mmHg PV Peak Velocity 80.1 cm/s PV Peak Gradient 2.6 mmHg FINDINGS LEFT VENTRICLE The left ventricular systolic function is low normal with an estimated ejection fraction in the rang e of 50- 55%. Normal left ventricular size. Mild concentric left ventricular hypertrophy. No regional wall motion abnormalities are present. RIGHT VENTRICLE Normal right ventricular size and systolic function. LEFT ATRIUM The left atrial size is moderately dilated. RIGHT ATRIUM The right atrial size is mildly dilated. ATRIAL SEPTUM Normal atrial septal thickness without atrial level shunting by limited color doppler interrogation. AORTA The aortic root and proximal ascending aorta are normal in size on limited imaging. MITRAL VALVE Structurally normal mitral valve. Mild mitral valve regurgitation. AORTIC VALVE Trileaflet aortic valve. Diffuse calcification of the aortic valve. Moderate aortic valve regurgitation. TRICUSPID VALVE Structurally normal tricuspid valve. There is moderate to severe tricuspid valve regurgitation. The estimated pulmonary arterial pressure is 51.2 mmHg. PULMONARY VALVE Mild pulmonary valve regurgitation. VESSELS The inferior vena cava is normal in size. PERICARDIUM No pericardial effusion. Hao Melendez MD (Electronically Signed) Final Date:17 July 2017 15:52
[2017-07-17] MEDS: CINACALCET HYDROCHLORIDE 30 MG TAB PO SCH (17:59)
[2017-07-18] VITALS (29 sets, daily range): BP systolic 106–133; BP diastolic 72–91; PULSE 84–120; RESP 17–22; TEMP 98–98.5; O2SAT 95–98
[2017-07-18] MEDS: CHLORHEXIDINE GLUCONATE 2 % 1 PACK (2 CLOTHS) TOP SCH (04:00)
[2017-07-18] MEDS: INSULIN NovoLIN REGULAR SUPPLEMENTAL SCALE SQ SCH ×4 (05:10→17:44)
[2017-07-18 07:35] LABS: HEMATOCRIT 39.5 % (39.0-51.0); MEAN CELL VOLUME 93.9 FL (80.0-100.0); MEAN CORPUSCULAR HEMOGLOBIN 30.9 PG (27.0-34.0); MEAN CORPUSCULAR HGB CONC 32.9 % (32.0-36.0); PLATELET COUNT 143 TH/MM3 (150-450); RED BLOOD COUNT 4.21 MIL/MM3 (4.50-5.90); RED CELL DISTRIBUTION WIDTH 19.1 % (11.6-17.2); REVIEW FLAG FINAL; WHITE BLOOD COUNT 6.6 TH/MM3 (4.0-11.0)
[2017-07-18 08:14] LABS: BICARBONATE 25.3 MEQ/L (21.0-32.0); POTASSIUM 4.7 MEQ/L (3.5-5.1)
--- NOTE | 2017-07-18 08:57 | PD.CARD.PN ---
Subjective Subjective Remarks Pt denies sx; rates reasonable on tele; he hasn't gotten out of bed yet ( unclear why) Objective Medications Current Medications Medications (Trade) Dose Ordered Sig/Neeraj Route Start Time Stop Time Status Last Admin (NS Flush) 2 ml UNSCH PRN IVF 07/15/17 23:00 (Brethine Inj) 1 mg UNSCH PRN SQ 07/15/17 23:45 (D50w (Vial) Inj) 25 ml UNSCH PRN IV PUSH 07/16/17 01:00 07/16/17 13:04 (NovoLIN R SUPPLEMENTAL SCALE) 1 Q6HR SQ 07/16/17 06:00 (Tylenol) 650 mg Q6H PRN PO 07/16/17 01:00 (Zofran Inj) 4 mg Q6H PRN IV PUSH 07/16/17 01:00 (Duoneb Neb) 1 ampule Q2HR NEB PRN INH 07/16/17 01:00 Miscellaneous Information 1 Q361D XX 07/16/17 01:00 (Chlorhexidine 2% Cloth) 3 pack Taper DAILY@04 TOP 07/16/17 04:00 07/12/18 03:59 (Chlorhexidine 2% Cloth) 3 pack UNSCH PRN TOP 07/16/17 01:00 Sodium Chloride 1,000 ml @ 0 mls/hr Q0M PRN OTHER 07/16/17 09:14 (Heparin Inj) 8,000 units UNSCH PRN IV FLUSH 07/16/17 09:15 Sodium Chloride 1,000 ml @ 200 mls/hr Q5H PRN IV 07/16/17 09:14 Sodium Chloride 1,000 ml @ 0 mls/hr Q0M PRN OTHER 07/16/17 09:14 (Mannitol Inj) 12.5 gm UNSCH PRN IV 07/16/17 09:15 Albumin Human 100 ml @ 60 mls/hr UNSCH PRN IV 07/16/17 09:15 (NS Flush) 5 ml UNSCH PRN IV FLUSH 07/16/17 09:15 (Heparin Inj) UNSCH PRN .XX 07/16/17 09:15 (Gentamicin (Dialysis) Inj) 20 mg UNSCH PRN OTHER 07/16/17 09:15 (Zofran Inj) 4 mg UNSCH PRN IV PUSH 07/16/17 09:15 (Tylenol) 650 mg UNSCH PRN PO 07/16/17 09:15 (Benadryl) 25 mg UNSCH PRN PO 07/16/17 09:15 (Nitrostat Sl) 0.4 mg UNSCH PRN SL 07/16/17 09:15 (Catapres) 0.1 mg UNSCH PRN PO 07/16/17 09:15 (Gelfoam 12 Mm/7 Mm Top) 1 foam UNSCH PRN TOP 07/16/17 09:15 (Sensipar) 60 mg AC DINNER PO 07/16/17 16:00 07/17/17 17:59 (Renvela) 800 mg TIDAC PO 07/16/17 12:00 07/17/17 17:59 Vital Signs / I&O Vital Signs Date Time Temp Pulse Resp B/P (MAP) Pulse Ox O2 Delivery O2 Flow Rate FiO2 07/18/17 08:26 98.2 114 18 117/82 (94) 97 07/18/17 07:16 84 07/18/17 06:00 101 07/18/17 05:00 105 07/18/17 04:00 Nasal Cannula 2.00 07/18/17 04:00 103 07/18/17 04:00 98.1 103 22 115/85 (95) 97 07/18/17 03:00 90 07/18/17 02:00 103 07/18/17 01:00 90 07/18/17 00:00 Nasal Cannula 2.00 07/18/17 00:00 102 07/18/17 00:00 98.0 102 22 106/72 (83) 96 07/17/17 23:00 100 07/17/17 22:00 98 07/17/17 21:00 113 07/17/17 20:03 97 Nasal Cannula 3.00 07/17/17 20:00 98.2 107 22 128/91 (103) 98 07/17/17 20:00 107 07/17/17 20:00 Nasal Cannula 2.00 07/17/17 18:01 98.7 114 18 138/93 (108) 97 07/17/17 18:00 113 07/17/17 16:16 100 07/17/17 15:00 103 07/17/17 14:00 106 07/17/17 13:00 104 07/17/17 12:30 98.3 95 17 104/66 (79) 98 07/17/17 12:00 105 07/17/17 11:00 107 07/17/17 10:00 105 07/17/17 09:00 109 I/O 07/17/17 07/17/17 07/17/17 07/18/17 07/18/17 07/18/17 07:00 15:00 23:00 07:00 15:00 23:00 Intake Total 240 ml 480 ml Output Total 0 ml 0 ml 0 ml Balance 240 ml 0 ml 480 ml Intake Oral 240 ml 480 ml Output Urine Total 0 ml 0 ml 0 ml # Bowel Movements 0 0 Physical Exam GENERAL: This is a well-nourished, well-developed patient, in no apparent distress. CARDIOVASCULAR: mildly rapid rate and irregular rhythm without murmurs, gallops , or rubs. RESPIRATORY: Clear to auscultation. Breath sounds equal bilaterally. No wheezes , rales, or rhonchi. GASTROINTESTINAL: Abdomen soft, non-tender, nondistended. Normal, active bowel sounds MUSCULOSKELETAL: Extremities without clubbing, cyanosis, or edema. NEURO: Alert & Oriented x4 to person, place, time, situation. Moves all ext x4 Laboratory Laboratory Tests Test 07/18/17 06:46 White Blood Count 6.6 TH/MM3 Red Blood Count 4.21 MIL/MM3 Hemoglobin 13.0 GM/DL Hematocrit 39.5 % Mean Corpuscular Volume 93.9 FL Mean Corpuscular Hemoglobin 30.9 PG Mean Corpuscular Hemoglobin Concent 32.9 % Red Cell Distribution Width 19.1 % Platelet Count 143 TH/MM3 Mean Platelet Volume 7.5 FL Blood Urea Nitrogen 65 MG/DL Creatinine 10.03 MG/DL Random Glucose 94 MG/DL Calcium Level 9.2 MG/DL Sodium Level 135 MEQ/L Potassium Level 4.7 MEQ/L Chloride Level 97 MEQ/L Carbon Dioxide Level 25.3 MEQ/L Anion Gap 13 MEQ/L Estimat Glomerular Filtration Rate 5 ML/MIN Imaging Last Impressions Chest X-Ray 07/15/17 2810 Signed Impressions: Service Date/Time: June 22:56 - CONCLUSION: 1. Cardiomegaly and left retrocardiac density, likely atelectasis. Sacha Kumar MD Assessment and Plan Problem List: (1) A-fib ICD Codes: I48.91 - Atrial fibrillation Status: Chronic Plan: reasonable though imperfect rate control w/ some evidence of tacy-martha; holding off on anticoagulation for now in case pacer is needed; will leave meds as is for now and continue to monitor on tele. (2) Symptomatic bradycardia ICD Codes: R00.1 - Bradycardia, unspecified Status: Acute Plan: resolved Assessment and Plan would like him OOB w/ pt to better assess ambulatory rates; same recommendations as yesterday, he hasn't gotten out of bed at all, discussed this w/ nursing, apparently patient has been refusing a lot of nursing interventions. Dr. Lujan will return tomorrow to resume care. Hao Melendez MD Jul 18, 2017 08:57
[2017-07-18] MEDS: SEVELAMER CARBONATE 800 MG TAB PO SCH ×3 (09:04→17:29)
--- NOTE | 2017-07-18 11:28 | HHI.PR ---
Subjective Remarks Follow-up symptomatic bradycardia/end-stage renal disease on hemodialysis 07/17/17-patient seen and examined, denies any chest pain or shortness of breath. Currently in sinus rhythm. 2-D echo being performed 07/18/17-patient seen and examined, heart rate in 110+, however patient denies any chest or shortness of breath. Does no want to get out of bed Objective Vitals Vital Signs Date Time Temp Pulse Resp B/P (MAP) Pulse Ox O2 Delivery O2 Flow Rate FiO2 07/18/17 09:09 95 Nasal Cannula 3.00 07/18/17 08:26 98.2 114 18 117/82 (94) 97 07/18/17 08:00 Room Air 07/18/17 07:16 84 07/18/17 06:00 101 07/18/17 05:00 105 07/18/17 04:00 Nasal Cannula 2.00 07/18/17 04:00 103 07/18/17 04:00 98.1 103 22 115/85 (95) 97 07/18/17 03:00 90 07/18/17 02:00 103 07/18/17 01:00 90 07/18/17 00:00 Nasal Cannula 2.00 07/18/17 00:00 102 07/18/17 00:00 98.0 102 22 106/72 (83) 96 07/17/17 23:00 100 07/17/17 22:00 98 07/17/17 21:00 113 07/17/17 20:03 97 Nasal Cannula 3.00 07/17/17 20:00 98.2 107 22 128/91 (103) 98 07/17/17 20:00 107 07/17/17 20:00 Nasal Cannula 2.00 07/17/17 18:01 98.7 114 18 138/93 (108) 97 07/17/17 18:00 113 07/17/17 16:16 100 07/17/17 15:00 103 07/17/17 14:00 106 07/17/17 13:00 104 07/17/17 12:30 98.3 95 17 104/66 (79) 98 07/17/17 12:00 105 I/O 07/17/17 07/17/17 07/17/17 07/18/17 07/18/17 07/18/17 07:00 15:00 23:00 07:00 15:00 23:00 Intake Total 240 ml 480 ml Output Total 0 ml 0 ml 0 ml Balance 240 ml 0 ml 480 ml Intake Oral 240 ml 480 ml Output Urine Total 0 ml 0 ml 0 ml # Bowel Movements 0 0 Result Diagram: 07/18/1764507/18/17645 Objective Remarks GENERAL: NAD SKIN: Warm and dry. HEAD: Normocephalic. EYES: No scleral icterus. No injection or drainage. NECK: Supple, trachea midline. No JVD or lymphadenopathy. CARDIOVASCULAR: Regular rate and rhythm without murmurs, gallops, or rubs. RESPIRATORY: Breath sounds equal bilaterally. No accessory muscle use. GASTROINTESTINAL: Abdomen soft, non-tender, nondistended. MUSCULOSKELETAL: No cyanosis, or edema. BACK: Nontender without obvious deformity. No CVA tenderness. A/P Problem List: (1) Symptomatic bradycardia ICD Code: R00.1 - Bradycardia, unspecified Status: Acute (2) ESRD on hemodialysis ICD Code: N18.6 - End-stage renal disease on hemodialysis; Z99.2 - Dependence on renal dialysis Status: Chronic Assessment and Plan 62-year-old man with Symptomatic bradycardia Now resolved Patient is currently off amiodarone and Dopamine Continue with post transcutaneous pacing 2-D echo with EF 50-55% Appreciate input from cardiology as patient been evaluated for possible pacemaker implantation Aortic stenosis 2-D echo with EF 50-55% End-stage renal disease on hemodialysis Appreciate input from nephrology On hemodialysis Wednesday Continue with Renvela Metabolic bone disease Continue with Renvela Secondary Hyperparathyroidism Continue with Sensipar Hypertension Currently normotensive on no medication Hyperkalemia Resolved status post Sacha Rodriguez MD Jul 18, 2017 11:28
--- NOTE | 2017-07-18 15:24 | HHI.NPPN ---
Subjective History of Present Illness 62 y/o male with ESRD on HD 3 times a week. He was sent in for bradycardia, rate in 30s. Hx A fib, he is in A fib on arrival. Additional Remarks Patient is alert, no SOB, no dizziness, feeling better. Objective Data Data Vital Signs Date Time Temp Pulse Resp B/P (MAP) Pulse Ox O2 Delivery O2 Flow Rate FiO2 07/18/17 15:00 95 07/18/17 14:00 108 07/18/17 13:00 106 07/18/17 12:11 98.3 104 17 126/84 (98) 96 07/18/17 12:00 104 07/18/17 11:00 111 07/18/17 10:00 100 07/18/17 09:09 95 Nasal Cannula 3.00 07/18/17 09:00 98 07/18/17 08:26 98.2 114 18 117/82 (94) 97 07/18/17 08:00 Room Air 07/18/17 08:00 102 07/18/17 07:16 84 07/18/17 06:00 101 07/18/17 05:00 105 07/18/17 04:00 Nasal Cannula 2.00 07/18/17 04:00 103 07/18/17 04:00 98.1 103 22 115/85 (95) 97 07/18/17 03:00 90 07/18/17 02:00 103 07/18/17 01:00 90 07/18/17 00:00 Nasal Cannula 2.00 07/18/17 00:00 102 07/18/17 00:00 98.0 102 22 106/72 (83) 96 07/17/17 23:00 100 07/17/17 22:00 98 07/17/17 21:00 113 07/17/17 20:03 97 Nasal Cannula 3.00 07/17/17 20:00 98.2 107 22 128/91 (103) 98 07/17/17 20:00 107 07/17/17 20:00 Nasal Cannula 2.00 07/17/17 18:01 98.7 114 18 138/93 (108) 97 07/17/17 18:00 113 07/17/17 16:16 100 -: 07/18/17 0646 07/18/17 0646 Physical Exam General Appearance: No Acute Distress, Comfortable Eyes Eye Exam: Pupils Equal Throat Throat Exam: Oral Mucosa [place] & Moist Pulmonary Resp Exam: Breath Sounds Equal, No Distress, Rhonchi, Decreased Bases Cardiology CV Exam: Normal Sinus Rhythm, Bradycardia Gastrointestinal/Abdomen GI Exam: Soft, Non-Tender, Bowel Sounds Present Genitourinary Exam: Clear Urine Extremeties Extremities Exam: Moderate Edema Neurologic Neuro Exam: Alert, Awake, Oriented Assessment/Plan Problem List: (1) ESRD on hemodialysis ICD Codes: N18.6 - End-stage renal disease on hemodialysis; Z99.2 - Dependence on renal dialysis Status: Chronic Plan: HD done on Wednesday, tolerated well. BP and HR much better. Repeat labs in AM High protein, low K diet ordered Avoid IVF Has AV access left arm. HD again in AM. (2) Symptomatic bradycardia ICD Codes: R00.1 - Bradycardia, unspecified Status: Acute Plan: Cardiology is following transcutaneous pacing and dopamine have been stopped monitor clinically may need pacemaker heart rate has improved (3) Hyperkalemia ICD Codes: E87.5 - Hyperkalemia Status: Acute Plan: Treated with Kayexalate. I will give IV insulin and bicarbonate Should also correct with dialysis Low k diet repeat labs in AM (4) Metabolic bone disease ICD Codes: M89.8X9 - Metabolic bone disease Status: Acute Plan: Resume Renvela, intermittently evaluate phosphorus level On Sensipar for secondary hyperparathyroidism (5) Hypertension ICD Codes: I10 - Hypertension Status: Chronic Plan: Medications held Cardiology to manage Problem Qualifiers (1) Hypertension: Qualified Codes: I10 - Essential (primary) hypertension Kiah Cueto MD Jul 18, 2017 15:24
[2017-07-18] MEDS: CINACALCET HYDROCHLORIDE 30 MG TAB PO SCH (17:29)
[2017-07-19] VITALS (28 sets, daily range): BP systolic 126–146; BP diastolic 80–98; PULSE 101–130; RESP 16–18; TEMP 97.7–99; O2SAT 93–95
[2017-07-19] MEDS: CHLORHEXIDINE GLUCONATE 2 % 1 PACK (2 CLOTHS) TOP SCH (04:00)
[2017-07-19 05:54] LABS: HEMATOCRIT 38.1 % (39.0-51.0); MEAN CELL VOLUME 94.1 FL (80.0-100.0); MEAN CORPUSCULAR HEMOGLOBIN 31.2 PG (27.0-34.0); MEAN CORPUSCULAR HGB CONC 33.1 % (32.0-36.0); PLATELET COUNT 139 TH/MM3 (150-450); RED BLOOD COUNT 4.05 MIL/MM3 (4.50-5.90); RED CELL DISTRIBUTION WIDTH 18.4 % (11.6-17.2); REVIEW FLAG FINAL; WHITE BLOOD COUNT 6.2 TH/MM3 (4.0-11.0)
[2017-07-19] MEDS: INSULIN NovoLIN REGULAR SUPPLEMENTAL SCALE SQ SCH ×5 (06:00→23:53)
[2017-07-19 06:30] LABS: BICARBONATE 22.8 MEQ/L (21.0-32.0); POTASSIUM 5.1 MEQ/L (3.5-5.1)
[2017-07-19] MEDS: SEVELAMER CARBONATE 800 MG TAB PO SCH ×3 (08:43→17:06)
--- NOTE | 2017-07-19 09:17 | HHI.NPPN ---
Subjective Renal Failure: Chronic, End Stage Renal Disease Interval History Seen during dialysis. His mental status is at baseline. Tachycardic today, no complaints. (Chinyere Rodriguez) Objective Data Data Vital Signs Date Time Temp Pulse Resp B/P (MAP) Pulse Ox O2 Delivery O2 Flow Rate FiO2 07/19/17 08:00 114 07/19/17 07:00 Room Air 07/19/17 07:00 120 07/19/17 06:35 112 07/19/17 05:00 110 07/19/17 04:00 114 07/19/17 03:00 116 07/19/17 02:00 114 07/19/17 01:00 110 07/19/17 00:43 98.6 115 16 146/95 (112) 95 07/19/17 00:00 108 07/18/17 23:00 112 07/18/17 22:00 116 07/18/17 21:00 114 07/18/17 20:56 98 21 07/18/17 20:38 98.5 120 18 125/89 (101) 98 07/18/17 20:25 Room Air 07/18/17 20:00 116 07/18/17 19:00 110 07/18/17 18:00 118 07/18/17 17:00 114 07/18/17 16:00 109 07/18/17 16:00 98.1 117 18 133/91 (105) 98 07/18/17 16:00 109 07/18/17 15:00 95 07/18/17 14:00 108 07/18/17 13:00 106 07/18/17 12:11 98.3 104 17 126/84 (98) 96 07/18/17 12:00 104 07/18/17 11:00 111 07/18/17 10:00 100 (Chinyere Rodriguez) -: 07/19/17 0506 07/19/17 0506 Physical Exam General Appearance: No Acute Distress, Comfortable (Chinyere Rodriguez) Eyes Eye Exam: Pupils Equal (Chinyere Rodriguez) Throat Throat Exam: Oral Mucosa [place] & Moist (Chinyere Rodriguez) Pulmonary Resp Exam: Breath Sounds Equal, No Distress, Rhonchi, Decreased Bases (Chinyere Rodriguez) Cardiology CV Exam: Normal Sinus Rhythm, Bradycardia (Chinyere Rodriguez) Gastrointestinal/Abdomen GI Exam: Soft, Non-Tender, Bowel Sounds Present (Chinyere Rodriguez) Genitourinary Exam: Clear Urine (Chinyere Rodriguez) Musculoskeletal MS Exam: Joints Intact, Normal Tone, Unable to Ambulate (Chinyere Rodriguez) Integumentary Skin Exam: Clear, Warm, Dry, Intact (Chinyere Rodriguez) Extremeties Extremities Exam: No Edema, Pedal Pulses Palpable (Chinyere Rodriguez) Neurologic Neuro Exam: Alert, Awake, Oriented, Speech Clear, Moving All Extremities (Chinyere Rodriguez) Psychiatric Psych Exam: Appropriate Responses (Chinyere Rodriguez) Assessment/Plan Discussed Condition With: Patient Assessment Summary: End Stage Renal Disease Problem List: (1) ESRD on hemodialysis ICD Codes: N18.6 - End-stage renal disease on hemodialysis; Z99.2 - Dependence on renal dialysis Status: Chronic Plan: Seen during dialysis today on a 2K, 350 BFR, goal 3L Continue HD support MWF Has AV access in left arm, functions well Avoid IVF, gadolinium in this patient Low K, high protein diet is ordered Obtain intermittent metabolic profile (2) Symptomatic bradycardia ICD Codes: R00.1 - Bradycardia, unspecified Status: Acute Plan: Cardiology is following, 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 Intermittently tachycardic. May need pacemaker with AV lorena ablation. Cardiology following. On 2K, UF 2 liters. (Varun Chisholm MD) Chinyere Rodriguez Jul 19, 2017 09:17 Varun Chisholm MD Jul 19, 2017 11:18
--- NOTE | 2017-07-19 11:15 | HHI.PR ---
Subjective Remarks Follow-up symptomatic bradycardia/end-stage renal disease on hemodialysis 07/17/17-patient seen and examined, denies any chest pain or shortness of breath. Currently in sinus rhythm. 2-D echo being performed 07/18/17-patient seen and examined, heart rate in 110+, however patient denies any chest or shortness of breath. Does no want to get out of bed 07/19/17-patient seen and examined, states he did ambulate in the hallway yesterday; HR 110-120; denies any shortness of breath. Heading to HD this AM Objective Vitals Vital Signs Date Time Temp Pulse Resp B/P (MAP) Pulse Ox O2 Delivery O2 Flow Rate FiO2 07/19/17 11:03 120 07/19/17 10:04 120 07/19/17 09:00 119 07/19/17 08:40 97.7 114 18 130/94 (106) 94 07/19/17 08:00 114 07/19/17 07:00 Room Air 07/19/17 07:00 120 07/19/17 06:35 112 07/19/17 05:00 110 07/19/17 04:00 114 07/19/17 03:00 116 07/19/17 02:00 114 07/19/17 01:00 110 07/19/17 00:43 98.6 115 16 146/95 (112) 95 07/19/17 00:00 108 07/18/17 23:00 112 07/18/17 22:00 116 07/18/17 21:00 114 07/18/17 20:56 98 21 07/18/17 20:38 98.5 120 18 125/89 (101) 98 07/18/17 20:25 Room Air 07/18/17 20:00 116 07/18/17 19:00 110 07/18/17 18:00 118 07/18/17 17:00 114 07/18/17 16:00 109 07/18/17 16:00 98.1 117 18 133/91 (105) 98 07/18/17 16:00 109 07/18/17 15:00 95 07/18/17 14:00 108 07/18/17 13:00 106 07/18/17 12:11 98.3 104 17 126/84 (98) 96 07/18/17 12:00 104 I/O 07/18/17 07/18/17 07/18/17 07/19/17 07/19/17 07/19/17 07:00 15:00 23:00 07:00 15:00 23:00 Intake Total 480 ml 600 ml 480 ml Output Total 0 ml 0 ml Balance 480 ml 600 ml 480 ml Intake Oral 480 ml 600 ml 480 ml Output Urine Total 0 ml 0 ml # Bowel Movements 0 0 Result Diagram: 07/19/17 0506 07/19/17 0506 Imaging Last Impressions Chest X-Ray 07/15/17 2250 Signed Impressions: Service Date/Time: June 22:56 - CONCLUSION: 1. Cardiomegaly and left retrocardiac density, likely atelectasis. Sacha Kumar MD Objective Remarks GENERAL: NAD SKIN: Warm and dry. HEAD: Normocephalic. EYES: No scleral icterus. No injection or drainage. NECK: Supple, trachea midline. No JVD or lymphadenopathy. CARDIOVASCULAR: Regular rate and rhythm without murmurs, gallops, or rubs. RESPIRATORY: Breath sounds equal bilaterally. No accessory muscle use. GASTROINTESTINAL: Abdomen soft, non-tender, nondistended. MUSCULOSKELETAL: No cyanosis, or edema. BACK: Nontender without obvious deformity. No CVA tenderness. A/P Problem List: (1) Symptomatic bradycardia ICD Code: R00.1 - Bradycardia, unspecified Status: Acute (2) ESRD on hemodialysis ICD Code: N18.6 - End-stage renal disease on hemodialysis; Z99.2 - Dependence on renal dialysis Status: Chronic Assessment and Plan 62-year-old man with Symptomatic bradycardia Now resolved Patient is currently off amiodarone and Dopamine Continue with post transcutaneous pacing 2-D echo with EF 50-55% Appreciate input from cardiology as patient been evaluated for possible pacemaker implantation if indication for Tachy-martha Aortic stenosis 2-D echo with EF 50-55% End-stage renal disease on hemodialysis Appreciate input from nephrology On hemodialysis Wednesday Continue with Renvela Metabolic bone disease Continue with Renvela Secondary Hyperparathyroidism Continue with Sensipar Hypertension Currently normotensive on no medication Hyperkalemia Resolved status post Sacha Rodriguez MD Jul 19, 2017 11:15
[2017-07-19] MEDS ORDERED: DILTIAZEM HCL 60 MG TAB PO STA (16:37)
[2017-07-19] MEDS: CINACALCET HYDROCHLORIDE 30 MG TAB PO SCH (17:06)
[2017-07-19] MEDS: DILTIAZEM HCL 60 MG TAB PO SCH (23:42)
[2017-07-20] VITALS (31 sets, daily range): BP systolic 94–149; BP diastolic 63–98; PULSE 72–127; RESP 16–22; TEMP 97.5–99.2; O2SAT 93–100
[2017-07-20] MEDS: CHLORHEXIDINE GLUCONATE 2 % 1 PACK (2 CLOTHS) TOP SCH (04:00)
[2017-07-20] MEDS: INSULIN NovoLIN REGULAR SUPPLEMENTAL SCALE SQ SCH ×4 (06:00→23:57)
[2017-07-20 06:03] LABS: HEMATOCRIT 36.8 % (39.0-51.0); MEAN CELL VOLUME 92.9 FL (80.0-100.0); MEAN CORPUSCULAR HEMOGLOBIN 31.1 PG (27.0-34.0); MEAN CORPUSCULAR HGB CONC 33.4 % (32.0-36.0); PLATELET COUNT 155 TH/MM3 (150-450); RED BLOOD COUNT 3.96 MIL/MM3 (4.50-5.90); RED CELL DISTRIBUTION WIDTH 18.4 % (11.6-17.2); REVIEW FLAG FINAL; WHITE BLOOD COUNT 6.1 TH/MM3 (4.0-11.0)
[2017-07-20] MEDS: DILTIAZEM HCL 60 MG TAB PO SCH ×4 (06:17→23:57)
[2017-07-20 06:40] LABS: BICARBONATE 26.5 MEQ/L (21.0-32.0); POTASSIUM 4.7 MEQ/L (3.5-5.1)
--- NOTE | 2017-07-20 08:15 | PD.CARD.PN ---
Subjective Subjective Remarks Feels well. No dizziness or dyspnea Objective Medications Current Medications Medications (Trade) Dose Ordered Sig/Neeraj Route Start Time Stop Time Status Last Admin (NS Flush) 2 ml UNSCH PRN IVF 07/15/17 23:00 (Brethine Inj) 1 mg UNSCH PRN SQ 07/15/17 23:45 (D50w (Vial) Inj) 25 ml UNSCH PRN IV PUSH 07/16/17 01:00 07/16/17 13:04 (NovoLIN R SUPPLEMENTAL SCALE) 1 Q6HR SQ 07/16/17 06:00 (Tylenol) 650 mg Q6H PRN PO 07/16/17 01:00 (Zofran Inj) 4 mg Q6H PRN IV PUSH 07/16/17 01:00 (Duoneb Neb) 1 ampule Q2HR NEB PRN INH 07/16/17 01:00 Miscellaneous Information 1 Q361D XX 07/16/17 01:00 (Chlorhexidine 2% Cloth) 3 pack Taper DAILY@04 TOP 07/16/17 04:00 07/12/18 03:59 (Chlorhexidine 2% Cloth) 3 pack UNSCH PRN TOP 07/16/17 01:00 Sodium Chloride 1,000 ml @ 0 mls/hr Q0M PRN OTHER 07/16/17 09:14 (Heparin Inj) 8,000 units UNSCH PRN IV FLUSH 07/16/17 09:15 Sodium Chloride 1,000 ml @ 200 mls/hr Q5H PRN IV 07/16/17 09:14 Sodium Chloride 1,000 ml @ 0 mls/hr Q0M PRN OTHER 07/16/17 09:14 (Mannitol Inj) 12.5 gm UNSCH PRN IV 07/16/17 09:15 Albumin Human 100 ml @ 60 mls/hr UNSCH PRN IV 07/16/17 09:15 (NS Flush) 5 ml UNSCH PRN IV FLUSH 07/16/17 09:15 (Heparin Inj) UNSCH PRN .XX 07/16/17 09:15 (Gentamicin (Dialysis) Inj) 20 mg UNSCH PRN OTHER 07/16/17 09:15 (Zofran Inj) 4 mg UNSCH PRN IV PUSH 07/16/17 09:15 (Tylenol) 650 mg UNSCH PRN PO 07/16/17 09:15 (Benadryl) 25 mg UNSCH PRN PO 07/16/17 09:15 (Nitrostat Sl) 0.4 mg UNSCH PRN SL 07/16/17 09:15 (Catapres) 0.1 mg UNSCH PRN PO 07/16/17 09:15 (Gelfoam 12 Mm/7 Mm Top) 1 foam UNSCH PRN TOP 07/16/17 09:15 (Sensipar) 60 mg AC DINNER PO 07/16/17 16:00 07/19/17 17:06 (Renvela) 800 mg TIDAC PO 07/16/17 12:00 07/19/17 17:06 (Cardizem) 60 mg Q6HR PO 07/20/17 00:00 07/20/17 06:17 Vital Signs / I&O Vital Signs Date Time Temp Pulse Resp B/P (MAP) Pulse Ox O2 Delivery O2 Flow Rate FiO2 07/20/17 07:51 98.0 94 22 130/92 (105) 95 07/20/17 07:00 99 07/20/17 06:00 97 07/20/17 05:00 106 07/20/17 04:00 98.0 127 22 131/94 (106) 93 07/20/17 04:00 108 07/20/17 03:00 105 07/20/17 02:00 99 07/20/17 01:00 110 07/20/17 00:00 94 Room Air 07/20/17 00:00 98.0 104 18 136/97 (110) 94 07/20/17 00:00 116 07/19/17 23:00 108 07/19/17 22:00 116 07/19/17 21:26 93 21 07/19/17 21:00 126 07/19/17 20:00 128 07/19/17 20:00 94 Room Air 07/19/17 20:00 99.0 130 18 139/98 (112) 94 07/19/17 19:00 124 07/19/17 18:11 116 07/19/17 17:05 98.2 116 18 126/80 (95) 94 07/19/17 17:05 116 07/19/17 16:00 123 07/19/17 15:00 116 07/19/17 14:04 124 07/19/17 13:07 126 07/19/17 13:04 21 07/19/17 12:55 97.7 101 18 130/93 (105) 95 07/19/17 12:00 116 07/19/17 11:03 120 07/19/17 10:04 120 07/19/17 09:00 119 07/19/17 08:40 97.7 114 18 130/94 (106) 94 I/O 07/19/17 07/19/17 07/19/17 07/20/17 07/20/17 07/20/17 07:00 15:00 23:00 07:00 15:00 23:00 Intake Total 480 ml 360 ml Output Total 0 ml 2000 ml 0 ml Balance 480 ml -2000 ml 360 ml Intake Oral 480 ml 360 ml Output Urine Total 0 ml 0 ml Peritoneal Fluid 2000 ml # Bowel Movements 0 1 1 Physical Exam Lungs clear Irregular@ 90-110 Laboratory Laboratory Tests Test 07/20/17 04:42 White Blood Count 6.1 TH/MM3 Red Blood Count 3.96 MIL/MM3 Hemoglobin 12.3 GM/DL Hematocrit 36.8 % Mean Corpuscular Volume 92.9 FL Mean Corpuscular Hemoglobin 31.1 PG Mean Corpuscular Hemoglobin Concent 33.4 % Red Cell Distribution Width 18.4 % Platelet Count 155 TH/MM3 Mean Platelet Volume 7.5 FL Blood Urea Nitrogen 63 MG/DL Creatinine 8.96 MG/DL Random Glucose 81 MG/DL Calcium Level 9.1 MG/DL Sodium Level 136 MEQ/L Potassium Level 4.7 MEQ/L Chloride Level 98 MEQ/L Carbon Dioxide Level 26.5 MEQ/L Anion Gap 12 MEQ/L Estimat Glomerular Filtration Rate 6 ML/MIN Assessment and Plan Problem List: (1) A-fib ICD Codes: I48.91 - Atrial fibrillation Status: Chronic Plan: HR not yet controlled. Will add small dose of metoprolol. Start warfarin for CVA thromboembolic protection (2) Symptomatic bradycardia ICD Codes: R00.1 - Bradycardia, unspecified Status: Acute Dc Small MD Jul 20, 2017 08:15
[2017-07-20] MEDS: SEVELAMER CARBONATE 800 MG TAB PO SCH ×3 (08:35→16:25)
[2017-07-20] MEDS: METOPROLOL TARTRATE 25 MG TAB PO SCH ×2 (09:44→21:40)
--- NOTE | 2017-07-20 09:52 | HHI.NPPN ---
Subjective Renal Failure: Chronic, End Stage Renal Disease Interval History He is resting in bed. Intermittent tachycardia persists. He has been started on Coumadin. (Chinyere Rodriguez) Objective Data Data Vital Signs Date Time Temp Pulse Resp B/P (MAP) Pulse Ox O2 Delivery O2 Flow Rate FiO2 07/20/17 09:21 97 Room Air 07/20/17 07:51 98.0 94 22 130/92 (105) 95 07/20/17 07:00 99 07/20/17 06:00 97 07/20/17 05:00 106 07/20/17 04:00 98.0 127 22 131/94 (106) 93 07/20/17 04:00 108 07/20/17 03:00 105 07/20/17 02:00 99 07/20/17 01:00 110 07/20/17 00:00 94 Room Air 07/20/17 00:00 98.0 104 18 136/97 (110) 94 07/20/17 00:00 116 07/19/17 23:00 108 07/19/17 22:00 116 07/19/17 21:26 93 21 07/19/17 21:00 126 07/19/17 20:00 128 07/19/17 20:00 94 Room Air 07/19/17 20:00 99.0 130 18 139/98 (112) 94 07/19/17 19:00 124 07/19/17 18:11 116 07/19/17 17:05 98.2 116 18 126/80 (95) 94 07/19/17 17:05 116 07/19/17 16:00 123 07/19/17 15:00 116 07/19/17 14:04 124 07/19/17 13:07 126 07/19/17 13:04 21 07/19/17 12:55 97.7 101 18 130/93 (105) 95 07/19/17 12:00 116 07/19/17 11:03 120 07/19/17 10:04 120 (Chinyere Rodriguez) -: 07/20/17 [id number]/17441 Physical Exam General Appearance: No Acute Distress, Comfortable, Sleeping (Chinyere Rodriguez) Eyes Eye Exam: Pupils Equal (Chinyere Rodriguez) Throat Throat Exam: Oral Mucosa [place] & Moist (Chinyere Rodriguez) Pulmonary Resp Exam: Clear Bilaterally, Breath Sounds Equal, No Distress, Decreased Bases (Chinyere Rodriguez) Cardiology CV Exam: Normal Sinus Rhythm, Bradycardia (Chinyere Rodriguez) Gastrointestinal/Abdomen GI Exam: Soft, Non-Tender, Bowel Sounds Present (Chinyere Rodriguez) Genitourinary Exam: Clear Urine (Chinyere Rodriguez) Musculoskeletal MS Exam: Joints Intact, Normal Tone, Unable to Ambulate (Chinyere Rodriguez) Integumentary Skin Exam: Clear, Warm, Dry, Intact (Chinyere Rodriguez) Extremeties Extremities Exam: No Edema, Pedal Pulses Palpable (Chinyere Rodriguez) Neurologic Neuro Exam: Alert, Awake, Oriented, Speech Clear, Moving All Extremities (Chinyere Rodriguez) Psychiatric Psych Exam: Appropriate Responses (Chinyere Rodriguez) Assessment/Plan Discussed Condition With: Patient Assessment Summary: Hypertension, End Stage Renal Disease Problem List: (1) ESRD on hemodialysis ICD Codes: N18.6 - End-stage renal disease on hemodialysis; Z99.2 - Dependence on renal dialysis Status: Chronic Plan: Continue HD support MWF. 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 NUT THREADER) Plan patient was seen and examined. Agree with above assessment and plan. Cardiology following, Coumadin started. Phosphorus is very high, increase Renvela to 2400 mg PO TID with meals. (Varun Chisholm MD) Problem Qualifiers (1) Hypertension: Qualified Codes: I10 - Essential (primary) hypertension Chinyere Rodriguez Jul 20, 2017 09:51 Varun Chisholm MD Jul 20, 2017 20:30
--- NOTE | 2017-07-20 12:11 | HHI.PR ---
Subjective Remarks Follow-up for tachybradycardia syndrome Heart rate continues to be uncontrolled. Patient has no complaints. He denies any chest pain, palpitation, shortness of breathing. Discussed with patient's nurse. Objective Vitals Vital Signs Date Time Temp Pulse Resp B/P (MAP) Pulse Ox O2 Delivery O2 Flow Rate FiO2 07/20/17 11:07 98.0 103 20 94/64 (74) 93 07/20/17 11:00 94 07/20/17 10:00 96 07/20/17 09:21 97 Room Air 07/20/17 09:00 92 07/20/17 08:00 96 07/20/17 07:51 98.0 94 22 130/92 (105) 95 07/20/17 07:00 99 07/20/17 06:00 97 07/20/17 05:00 106 07/20/17 04:00 98.0 127 22 131/94 (106) 93 07/20/17 04:00 108 07/20/17 03:00 105 07/20/17 02:00 99 07/20/17 01:00 110 07/20/17 00:00 94 Room Air 07/20/17 00:00 98.0 104 18 136/97 (110) 94 07/20/17 00:00 116 07/19/17 23:00 108 07/19/17 22:00 116 07/19/17 21:26 93 21 07/19/17 21:00 126 07/19/17 20:00 128 07/19/17 20:00 94 Room Air 07/19/17 20:00 99.0 130 18 139/98 (112) 94 07/19/17 19:00 124 07/19/17 18:11 116 07/19/17 17:05 98.2 116 18 126/80 (95) 94 07/19/17 17:05 116 07/19/17 16:00 123 07/19/17 15:00 116 07/19/17 14:04 124 07/19/17 13:07 126 07/19/17 13:04 21 07/19/17 12:55 97.7 101 18 130/93 (105) 95 I/O 07/19/17 07/19/17 07/19/17 07/20/17 07/20/17 07/20/17 07:00 15:00 23:00 07:00 15:00 23:00 Intake Total 480 ml 360 ml Output Total 0 ml 2000 ml 0 ml Balance 480 ml -2000 ml 360 ml Intake Oral 480 ml 360 ml Output Urine Total 0 ml 0 ml Peritoneal Fluid 2000 ml # Bowel Movements 0 1 1 Result Diagram: 07/20/1744107/20/17441 Objective Remarks GENERAL: SKIN: Warm and dry. HEAD: Normocephalic. EYES: No scleral icterus. No injection or drainage. NECK: Supple, trachea midline. No JVD or lymphadenopathy. CARDIOVASCULAR: Regular rate and rhythm without murmurs, gallops, or rubs. RESPIRATORY: Breath sounds equal bilaterally. No accessory muscle use. GASTROINTESTINAL: Abdomen soft, non-tender, nondistended. MUSCULOSKELETAL: No cyanosis, or edema. BACK: Nontender without obvious deformity. No CVA tenderness. Medications and IVs Current Medications Sodium Chloride (NS Flush) 2 ml UNSCH PRN IVF FLUSH AFTER USING IV ACCESS; Start 07/15/17 at 23:00 Calcium Gluconate (Calcium Gluconate Inj) 1 gm ONCE ONCE IV PUSH Last administered on 07/15/17 23:10; Start 07/15/17 at 23:15; Stop 07/15/17 at 23 :16; Status DC Atropine Sulfate (Atropine Inj) 0.5 mg ONCE ONCE IV PUSH Last administered on 07/15/17 23:10; Start 07/15/17 at 23:15; Stop 07/15/17 at 23:16; Status DC Lorazepam (Ativan Inj) 2 mg STK-MED ONCE .ROUTE ; Start 07/15/17 at 23:32; Stop 07/15/17 at 23:33; Status DC Lorazepam (Ativan Inj) 2 mg ONCE ONCE IV PUSH Last administered on 07/15/17 23:30; Start 07/15/17 at 23:45; Stop 07/15/17 at 23:46; Status DC Morphine Sulfate (Morphine Inj) 4 mg ONCE ONCE IV PUSH Last administered on 23:44; Start 07/15/17 at 23:45; Stop 07/15/17 at 23:46; Status DC Dopamine HCl 800 mg/Dextrose 250 ml @ 4.95 mls/hr TITRATE PRN IV Blood Pressure Management Last administered on 07/16/17 00:17; Start 07/15/17 at 23 :45; Stop 07/16/17 at 14:20; Status DC Terbutaline Sulfate (Brethine Inj) 1 mg UNSCH PRN SQ For Extravasation; Start 07/15/17 at 23:45 Sodium Polystyrene Sulfonate (Kayexalate Liq) 15 gm ONCE ONCE PO ; Start 07/16 at 00:15; Stop 07/16/17 at 00:16; Status DC Dextrose (D50w (Vial) Inj) 25 ml UNSCH PRN IV PUSH HYPOGLYCEMIA-SEE COMMENTS Last administered on 07/16/17 13:04; Start 07/16/17 at 01:00 Insulin Human Regular (NovoLIN R SUPPLEMENTAL SCALE) 1 Q6HR SQ ; Start at 06:00 Acetaminophen (Tylenol) 650 mg Q6H PRN PO PAIN 1-10 AND/OR FEVER >101F; Start 07/16/17 at 01:00 Ondansetron HCl (Zofran Inj) 4 mg Q6H PRN IV PUSH NAUSEA OR VOMITING; Start at 01:00 Albuterol/ Ipratropium (Duoneb Neb) 1 ampule Q2HR NEB PRN INH WHEEZING; Start 07/16/17 at 01:00 Miscellaneous Information 1 Q361D XX ; Start 07/16/17 at 01:00 Chlorhexidine Gluconate (Chlorhexidine 2% Cloth) 3 pack Taper DAILY@04 TOP ; Start 07/16/17 at 04:00; Stop 07/12/18 at 03:59 Chlorhexidine Gluconate (Chlorhexidine 2% Cloth) 3 pack UNSCH PRN TOP HYGIENIC CARE; Start 07/16/17 at 01:00 Senna/Docusate Sodium (Aparna-Colace) 1 tab BID PO Last administered on 08:49; Start 07/16/17 at 09:00; Stop 07/17/17 at 12:27; Status DC Sodium Chloride 1,000 ml @ 0 mls/hr Q0M PRN OTHER For Prime & Rinse Back; Start 07/16/17 at 09:14 Heparin Sodium (Porcine) (Heparin Inj) 8,000 units UNSCH PRN IV FLUSH WITH DIALYSIS; Start 07/16/17 at 09:15 Sodium Chloride 1,000 ml @ 200 mls/hr Q5H PRN IV WITH DIALYSIS; Start at 09:14 Sodium Chloride 1,000 ml @ 0 mls/hr Q0M PRN OTHER WITH DIALYSIS; Start at 09:14 Mannitol (Mannitol Inj) 12.5 gm UNSCH PRN IV WITH DIALYSIS; Start 07/16/17 at 09:15 Albumin Human 100 ml @ 60 mls/hr UNSCH PRN IV WITH DIALYSIS; Start 07/16/17 at 09:15 Sodium Chloride (NS Flush) 5 ml UNSCH PRN IV FLUSH WITH DIALYSIS; Start at 09:15 Heparin Sodium (Porcine) (Heparin Inj) UNSCH PRN .XX WITH DIALYSIS; Start at 09:15 Gentamicin Sulfate (Gentamicin (Dialysis) Inj) 20 mg UNSCH PRN OTHER WITH DIALYSIS; Start 07/16/17 at 09:15 Ondansetron HCl (Zofran Inj) 4 mg UNSCH PRN IV PUSH WITH DIALYSIS; Start 07/16 at 09:15 Acetaminophen (Tylenol) 650 mg UNSCH PRN PO for headach, pain 1-10,T> 101F; Start 07/16/17 at 09:15 Diphenhydramine HCl (Benadryl) 25 mg UNSCH PRN PO for hives/itching/anaphylaxis ; Start 07/16/17 at 09:15 Nitroglycerin (Nitrostat Sl) 0.4 mg UNSCH PRN SL CHEST PAIN; Start 07/16/17 at 09:15 Clonidine (Catapres) 0.1 mg UNSCH PRN PO for BP > 180/100 X 2 readings; Start 07/16/17 at 09:15 Gelatin (Gelfoam 12 Mm/7 Mm Top) 1 foam UNSCH PRN TOP SEE LABEL COMMENTS; Start 07/16/17 at 09:15 Insulin Human Regular (NovoLIN R INJ) 10 units ONCE ONCE IV PUSH Last administered on 07/16/17 11:00; Start 07/16/17 at 11:00; Stop 07/16/17 at 11 :17; Status DC Sodium Bicarbonate (Sodium Bicarbonate 8.4% Inj) 50 meq ONCE ONCE IV PUSH Last administered on 07/16/17 12:51; Start 07/16/17 at 11:00; Stop 07/16/17 at 11:17; Status DC Cinacalcet (Sensipar) 60 mg AC DINNER PO Last administered on 07/19/17 17:06 ; Start 07/16/17 at 16:00 Sevelamer Carbonate (Renvela) 800 mg TIDAC PO Last administered on 07/20/17 08:35; Start 07/16/17 at 12:00; Stop 07/20/17 at 08:46; Status DC Diltiazem HCl (Cardizem) 60 mg STAT STAT PO Last administered on 07/19/17 17 :06; Start 07/19/17 at 16:37; Stop 07/19/17 at 16:41; Status DC Diltiazem HCl (Cardizem) 60 mg Q6HR PO Last administered on 07/20/17 06:17; Start 07/20/17 at 00:00 Metoprolol Tartrate (Lopressor) 25 mg Q12HR PO Last administered on 07/20/17 09:44; Start 07/20/17 at 09:00 Warfarin Sodium (Coumadin) 5 mg DAILY@1600 PO ; Start 07/20/17 at 16:00; Status UNV Sevelamer Carbonate (Renvela) 1,600 mg TIDAC PO ; Start 07/20/17 at 12:00 A/P Problem List: (1) Symptomatic bradycardia ICD Code: R00.1 - Bradycardia, unspecified Status: Acute (2) ESRD on hemodialysis ICD Code: N18.6 - End-stage renal disease on hemodialysis; Z99.2 - Dependence on renal dialysis Status: Chronic Assessment and Plan 62-year-old man with Symptomatic bradycardia/? Tachybradycardia syndrome -Heart rate not controlled. -Status post amiodarone and dopamine. -Metoprolol added by burling and joining supervisor due to increased heart rate. Aortic stenosis, asymptomatic. -2-D echo with EF 50-55% -Media Relations Manager following. End-stage renal disease on hemodialysis -Appreciate input from nephrology -On hemodialysis Wednesday -Continue with Renvela Metabolic bone disease -Continue with Renvela Secondary Hyperparathyroidism -Continue with Sensipar Hypertension -Currently normotensive on no medication Hyperkalemia -Resolved status post Kayexalate Discharge Planning Heart rate continues to be uncontrolled. He requires continual monitoring and treatment and the [facility]. Maria Luisa Knott MD Jul 20, 2017 12:11
[2017-07-20] MEDS: CINACALCET HYDROCHLORIDE 30 MG TAB PO SCH (16:24)
[2017-07-20 19:48] LABS: INTERNATIONAL NORMALIZED RATIO 1.2 RATIO; PROTHROMBIN TIME - PATIENT 13.1 SEC (9.8-11.6)
[2017-07-20] MEDS: WARFARIN SOD 5 MG TAB PO SCH (21:48)
[2017-07-21] VITALS (22 sets, daily range): BP systolic 115–135; BP diastolic 73–94; PULSE 80–117; RESP 16–20; TEMP 97.1–98.8; O2SAT 94–95
[2017-07-21] MEDS: CHLORHEXIDINE GLUCONATE 2 % 1 PACK (2 CLOTHS) TOP SCH (03:55)
[2017-07-21] MEDS: INSULIN NovoLIN REGULAR SUPPLEMENTAL SCALE SQ SCH ×3 (06:00→17:35)
[2017-07-21] MEDS: DILTIAZEM HCL 60 MG TAB PO SCH ×3 (06:11→17:33)
--- NOTE | 2017-07-21 07:51 | PD.CARD.PN ---
Subjective Subjective Remarks denies chest pain, sob or palpitations. states he is unhappy with renal diet. (Gladys Bustamante) Objective Medications Current Medications Medications (Trade) Dose Ordered Sig/Neeraj Route Start Time Stop Time Status Last Admin (NS Flush) 2 ml UNSCH PRN IVF 07/15/17 23:00 (Brethine Inj) 1 mg UNSCH PRN SQ 07/15/17 23:45 (D50w (Vial) Inj) 25 ml UNSCH PRN IV PUSH 07/16/17 01:00 07/16/17 13:04 (NovoLIN R SUPPLEMENTAL SCALE) 1 Q6HR SQ 07/16/17 06:00 (Tylenol) 650 mg Q6H PRN PO 07/16/17 01:00 (Zofran Inj) 4 mg Q6H PRN IV PUSH 07/16/17 01:00 (Duoneb Neb) 1 ampule Q2HR NEB PRN INH 07/16/17 01:00 Miscellaneous Information 1 Q361D XX 07/16/17 01:00 (Chlorhexidine 2% Cloth) Taper DAILY@04 TOP 07/16/17 04:00 07/12/18 03:59 (Chlorhexidine 2% Cloth) 3 pack UNSCH PRN TOP 07/16/17 01:00 Sodium Chloride 1,000 ml @ 0 mls/hr Q0M PRN OTHER 07/16/17 09:14 (Heparin Inj) 8,000 units UNSCH PRN IV FLUSH 07/16/17 09:15 Sodium Chloride 1,000 ml @ 200 mls/hr Q5H PRN IV 07/16/17 09:14 Sodium Chloride 1,000 ml @ 0 mls/hr Q0M PRN OTHER 07/16/17 09:14 (Mannitol Inj) 12.5 gm UNSCH PRN IV 07/16/17 09:15 Albumin Human 100 ml @ 60 mls/hr UNSCH PRN IV 07/16/17 09:15 (NS Flush) 5 ml UNSCH PRN IV FLUSH 07/16/17 09:15 (Heparin Inj) UNSCH PRN .XX 07/16/17 09:15 (Gentamicin (Dialysis) Inj) 20 mg UNSCH PRN OTHER 07/16/17 09:15 (Zofran Inj) 4 mg UNSCH PRN IV PUSH 07/16/17 09:15 (Tylenol) 650 mg UNSCH PRN PO 07/16/17 09:15 (Benadryl) 25 mg UNSCH PRN PO 07/16/17 09:15 (Nitrostat Sl) 0.4 mg UNSCH PRN SL 07/16/17 09:15 (Catapres) 0.1 mg UNSCH PRN PO 07/16/17 09:15 (Gelfoam 12 Mm/7 Mm Top) 1 foam UNSCH PRN TOP 07/16/17 09:15 (Sensipar) 60 mg AC DINNER PO 07/16/17 16:00 07/20/17 16:24 (Cardizem) 60 mg Q6HR PO 07/20/17 00:00 07/21/17 06:11 (Lopressor) 25 mg Q12HR PO 07/20/17 09:00 07/20/17 21:40 (Coumadin) 5 mg DAILY@1600 PO 07/20/17 16:00 07/20/17 21:48 (Renvela) 2,400 mg TIDAC PO 07/21/17 08:00 Vital Signs / I&O Vital Signs Date Time Temp Pulse Resp B/P (MAP) Pulse Ox O2 Delivery O2 Flow Rate FiO2 07/21/17 07:15 86 07/21/17 06:00 91 07/21/17 05:00 92 07/21/17 04:00 89 07/21/17 03:00 80 07/21/17 03:00 97.5 80 20 115/73 (87) 95 07/21/17 02:00 86 07/21/17 01:00 88 07/21/17 00:00 98.8 101 18 135/94 (108) 95 07/21/17 00:00 101 07/20/17 23:00 98 07/20/17 22:00 100 07/20/17 21:00 102 07/20/17 20:00 98.3 108 18 149/98 (115) 100 07/20/17 20:00 106 07/20/17 20:00 100 Room Air 07/20/17 19:57 96 21 07/20/17 19:00 98 07/20/17 18:00 96 07/20/17 17:00 98 07/20/17 16:00 72 07/20/17 15:49 97.5 87 22 115/79 (91) 95 07/20/17 15:00 94 07/20/17 14:12 83 07/20/17 14:11 93 07/20/17 13:02 92 07/20/17 12:18 136/91 (106) 07/20/17 12:14 102 07/20/17 12:00 96 07/20/17 11:07 98.0 103 20 94/64 (74) 93 07/20/17 11:00 94 07/20/17 10:00 96 07/20/17 09:21 97 Room Air 07/20/17 09:00 92 07/20/17 08:00 96 07/20/17 07:51 98.0 94 22 130/92 (105) 95 I/O 07/20/17 07/20/17 07/20/17 07/21/17 07/21/17 07/21/17 07:00 15:00 23:00 07:00 15:00 23:00 Intake Total 360 ml 720 ml 480 ml Output Total 0 ml 0 ml 0 ml Balance 360 ml 720 ml 480 ml Intake Oral 360 ml 720 ml 480 ml Output Urine Total 0 ml 0 ml 0 ml # Bowel Movements 1 1 Physical Exam HEAD: Atraumatic. Normocephalic. EYES: Pupils equal and round. No scleral icterus. No injection or drainage. ENT: No nasal bleeding or discharge. Mucous membranes pink and moist. NECK: Trachea midline. No JVD. CARDIOVASCULAR: Regular rate and rhythm. No murmurs RESPIRATORY: No accessory muscle use. Clear to auscultation. Breath sounds equal bilaterally. GASTROINTESTINAL: Abdomen soft, non-tender, nondistended. MUSCULOSKELETAL: Extremities without clubbing, cyanosis, or edema. No obvious deformities. NEUROLOGICAL: Awake and alert. No obvious cranial nerve deficits. Normal speech. PSYCHIATRIC: Appropriate mood and affect; insight and judgment normal. Laboratory Laboratory Tests Test 07/20/17 19:01 Prothrombin Time 13.1 SEC Prothromb Time International Ratio 1.2 RATIO (Gladys Bustamante) Assessment and Plan Problem List: (1) A-fib ICD Codes: I48.91 - Atrial fibrillation Status: Chronic (2) Symptomatic bradycardia ICD Codes: R00.1 - Bradycardia, unspecified Status: Acute Assessment and Plan This is a 62 yo WM with ESRD and chronic afib who presented with symptomatic bradycardia and required transcutaneous pacing. afib- rate improving, in NSR. presented with bradycardia, r/o tachybrady syndrome. started warfarin, INR= 1.2 aortic valve regurgitation- EF 50% (Gladys Bustamante) Assessment and Plan afib - rate controlled. cont anticoagulation DC home FU with outpatient siding mechanic consider outpatient event monitor Needs INR check wednesday with PCP or siding mechanic (Leland Lujan MD) Gladys Bustamante Jul 21, 2017 07:51 Leland Lujan MD Jul 21, 2017 08:06
[2017-07-21 09:07] LABS: HEMATOCRIT 39.7 % (39.0-51.0); MEAN CELL VOLUME 93.6 FL (80.0-100.0); MEAN CORPUSCULAR HEMOGLOBIN 31.2 PG (27.0-34.0); MEAN CORPUSCULAR HGB CONC 33.3 % (32.0-36.0); PLATELET COUNT 154 TH/MM3 (150-450); RED BLOOD COUNT 4.24 MIL/MM3 (4.50-5.90); RED CELL DISTRIBUTION WIDTH 18.6 % (11.6-17.2); REVIEW FLAG FINAL; WHITE BLOOD COUNT 6.1 TH/MM3 (4.0-11.0)
--- NOTE | 2017-07-21 09:21 | HHI.NPPN ---
Subjective Renal Failure: Chronic, End Stage Renal Disease Interval History He is awake and alert. No complaints this morning. Due for dialysis. (Chinyere Rodriguez) Objective Data Data Vital Signs Date Time Temp Pulse Resp B/P (MAP) Pulse Ox O2 Delivery O2 Flow Rate FiO2 07/21/17 08:00 90 07/21/17 07:20 98.1 87 16 121/83 (96) 95 07/21/17 07:15 86 07/21/17 07:00 90 07/21/17 06:00 91 07/21/17 05:00 92 07/21/17 04:00 89 07/21/17 03:00 80 07/21/17 03:00 97.5 80 20 115/73 (87) 95 07/21/17 02:00 86 07/21/17 01:00 88 07/21/17 00:00 98.8 101 18 135/94 (108) 95 07/21/17 00:00 101 07/20/17 23:00 98 07/20/17 22:00 100 07/20/17 21:00 102 07/20/17 20:00 98.3 108 18 149/98 (115) 100 07/20/17 20:00 106 07/20/17 20:00 100 Room Air 07/20/17 19:57 96 21 07/20/17 19:00 98 07/20/17 18:00 96 07/20/17 17:00 98 07/20/17 16:00 72 07/20/17 15:49 97.5 87 22 115/79 (91) 95 07/20/17 15:00 94 07/20/17 14:12 83 07/20/17 14:11 93 07/20/17 13:02 92 07/20/17 12:18 136/91 (106) 07/20/17 12:14 102 07/20/17 12:00 96 07/20/17 11:07 98.0 103 20 94/64 (74) 93 07/20/17 11:00 94 07/20/17 10:00 96 07/20/17 09:21 97 Room Air (Chinyere Rodriguez) -: 07/21/17 0820 07/20/17 0442 Physical Exam General Appearance: Well Developed, Well Nourished, No Acute Distress, Comfortable (Chinyere Rodriguez. SPECIFICATIONS WRITER) Eyes Eye Exam: Pupils Equal (Chinyere Rodriguez B. SPECIFICATIONS WRITER) Throat Throat Exam: Oral Mucosa [place] & Moist (Chinyere Rodriguez B. SPECIFICATIONS WRITER) Pulmonary Resp Exam: Clear Bilaterally, Breath Sounds Equal, No Distress, Decreased Bases (Chinyere Rodriguez B. SPECIFICATIONS WRITER) Cardiology CV Exam: Good Perfusion, Irregular (Chinyere Rodriguez. SPECIFICATIONS WRITER) Gastrointestinal/Abdomen GI Exam: Soft, Non-Tender, Bowel Sounds Present (Chinyere Rodriguez B. SPECIFICATIONS WRITER) Genitourinary Exam: Clear Urine (Chinyere Rodriguez B. SPECIFICATIONS WRITER) Musculoskeletal MS Exam: Joints Intact, Normal Tone, Good Strength (Chinyere Rodriguez. SPECIFICATIONS WRITER) Integumentary Skin Exam: Clear, Warm, Dry, Intact (Chinyere Rodriguez. SPECIFICATIONS WRITER) Extremeties Extremities Exam: No Edema, Pedal Pulses Palpable (Chinyere Rodriguez. SPECIFICATIONS WRITER) Neurologic Neuro Exam: Alert, Awake, Oriented, Speech Clear, Moving All Extremities (Chinyere Rodriguez B. SPECIFICATIONS WRITER) Psychiatric Psych Exam: Appropriate Responses (Chinyere Rodriguez. SPECIFICATIONS WRITER) Assessment/Plan Discussed Condition With: Patient Assessment Summary: [place] Hyperparathyroid, Hypertension, End Stage Renal Disease Problem List: (1) ESRD on hemodialysis ICD Codes: N18.6 - End-stage renal disease on hemodialysis; Z99.2 - Dependence on renal dialysis Status: Chronic Plan: Continue HD support MWF. He is due for treatment today Has AV access in left arm, no recent issues Avoid IVF and gadolinium in this patient Low K, high protein diet has been ordered Obtain intermittent metabolic profile if discharged, we will follow the patient in the dialysis clinic (2) A-fib ICD Codes: I48.91 - Atrial fibrillation Status: Chronic Plan: Cardiology is following for tachy martha syndrome, history of A fib it was thought he may require a pacemaker this admission monitor clinically On Lopressor and Cardizem started on Coumadin for anticoagulation; needs INR checked Wednesday if discharged (3) Metabolic bone disease ICD Codes: M89.8X9 - Metabolic bone disease Status: Acute Plan: On Renvela, high dose monitor phosphorus intermittently On Sensipar for secondary hyperparathyroidism (4) Hypertension ICD Codes: I10 - Hypertension Status: Chronic Plan: He is on cardizem and metoprolol (5) Hyperkalemia ICD Codes: E87.5 - Hyperkalemia Status: Acute Plan: corrected, monitor for recurrence (Chinyere Rodriguez) Plan patient was seen and examined. Agree with above assessment and plan. (Varun Chisholm MD) Problem Qualifiers (1) Hypertension: Qualified Codes: I10 - Essential (primary) hypertension Chinyere Rodriguez Jul 21, 2017 09:21 Varun Chisholm MD Jul 22, 2017 16:21
[2017-07-21 09:32] LABS: BICARBONATE 24.4 MEQ/L (21.0-32.0); POTASSIUM 5.7 MEQ/L (3.5-5.1)
[2017-07-21] MEDS ORDERED: COUM5TAB PO (10:51)
[2017-07-21] MEDS ORDERED: CINA30 PO (10:51)
[2017-07-21] MEDS ORDERED: SEVEL800 PO (10:51)
[2017-07-21] MEDS ORDERED: METO25TA3 PO (10:51)
--- NOTE | 2017-07-21 10:57 | HHI.DS ---
Discharge Summary Admission Date Jul 16, 2017 at 01:00 Discharge Date: Jul 21, 2017 Admitting Diagnosis Bradycardia, hypotension (1) Symptomatic bradycardia ICD Code: R00.1 - Bradycardia, unspecified Diagnosis: Principal Status: Acute (2) ESRD on hemodialysis ICD Code: N18.6 - End-stage renal disease on hemodialysis; Z99.2 - Dependence on renal dialysis Status: Chronic (3) Atrial fibrillation with RVR ICD Code: I48.91 - Unspecified atrial fibrillation Diagnosis: Principal Status: Acute Procedures See hospital course. Brief History - From Admission This is a 62-year-old male with a history of atrial fibrillation who presents from a halfway facility with fatigue and somatic bradycardia. Per EMS he was given atropine with little effect and then transcutaneously paced. On arrival to the emergency department his underlying rhythm was initially A. fib in the 70s, but quickly decompensated back into the 30s, with which the patient was hypotensive and altered. Patient was again transcutaneous lipase. Noted to tolerate his case at pacing, the patient was given IV Ativan and morphine. Patient was started on a dopamine infusion and weaned off transcutaneous pacing. Dr. Ever Darnell was consulted in the emergency department and recommended dopamine infusion in ICU monitoring. When I evaluated the patient, the patient was recently status post his IV Ativan and morphine and was unable to provide any additional information. CBC/BMP: 07/21/17 0820 07/21/17 0820 Significant Findings Laboratory Tests Test 07/19/17 05:06 07/20/17 04:42 07/20/17 19:01 07/21/17 08:20 Red Blood Count 4.05 MIL/MM3 (4.50-5.90) 3.96 MIL/MM3 (4.50-5.90) 4.24 MIL/MM3 (4.50-5.90) Hemoglobin 12.6 GM/DL (13.0-17.0) 12.3 GM/DL (13.0-17.0) Hematocrit 38.1 % (39.0-51.0) 36.8 % (39.0-51.0) Red Cell Distribution Width 18.4 % (11.6-17.2) 18.4 % (11.6-17.2) 18.6 % (11.6-17.2) Platelet Count 139 TH/MM3 (150-450) Blood Urea Nitrogen 83 MG/DL (7-18) 63 MG/DL (7-18) 83 MG/DL (7-18) Creatinine 11.29 MG/DL (0.60-1.30) 8.96 MG/DL (0.60-1.30) 10.59 MG/DL (0.60-1.30) Sodium Level 134 MEQ/L (136-145) 131 MEQ/L (136-145) Chloride Level 96 MEQ/L (98-107) 94 MEQ/L (98-107) Estimat Glomerular Filtration Rate 5 ML/MIN (>89) 6 ML/MIN (>89) 5 ML/MIN (>89) Phosphorus Level 8.4 MG/DL (2.5-4.9) Prothrombin Time 13.1 SEC (9.8-11.6) Random Glucose 111 MG/DL (74-106) Potassium Level 5.7 MEQ/L (3.5-5.1) Imaging Last Impressions Chest X-Ray 07/15/17 2250 Signed Impressions: Service Date/Time: June 22:56 - CONCLUSION: 1. Cardiomegaly and left retrocardiac density, likely atelectasis. Sacha Kumar MD PE at Discharge GENERAL: SKIN: Warm and dry. HEAD: Normocephalic. EYES: No scleral icterus. No injection or drainage. NECK: Supple, trachea midline. No JVD or lymphadenopathy. CARDIOVASCULAR: Regular rate and rhythm without murmurs, gallops, or rubs. RESPIRATORY: Breath sounds equal bilaterally. No accessory muscle use. GASTROINTESTINAL: Abdomen soft, non-tender, nondistended. MUSCULOSKELETAL: No cyanosis, or edema. BACK: Nontender without obvious deformity. No CVA tenderness. Pt update on day of discharge Follow-up for questionable tachybradycardia syndrome. Patient her rate has been controlled. He is very upset that he is on a renal diet. Otherwise he has no complaints. He denies any chest pain, shortness of breathing, palpitation, lightheadedness or dizziness. Discussed patient with patient's nurse and case management. Patient initially refused labs but then later his nurse convince him to get his labs done. Patient is scheduled for dialysis today. Hospital Course 62-year-old man with Symptomatic bradycardia/? Tachybradycardia syndrome -Patient was admitted to the hospital and he had amiodarone and dopamine. -He was later put on a low-dose of metoprolol since he had questionable tachybradycardia syndrome. Heart rate controlled metoprolol. Atrial fibrillation -Patient was started on Coumadin during his hospitalization. On the day of discharge INR is 1.2. Physician'S Assistant stated that patient can have a repeat INR with his supervisor yard and PCP on Wednesday. Coumadin should be adjusted based on INR results. Goal INR is between 2-3. Aortic stenosis, asymptomatic. -2-D echo with EF 50-55% End-stage renal disease on hemodialysis -His rope machine setter was consulted. Patient received dialysis during his hospitalization. Medication was also adjusted by rope machine setter. -On hemodialysis Wednesday Metabolic bone disease -Continue with Renvela Secondary Hyperparathyroidism -Continue with Sensipar Hypertension -Currently normotensive on no medication Hyperkalemia -Resolved status post Kayexalate Pt Condition on Discharge: Stable Discharge Disposition: ACLF/NING Discharge Time: > 30 minutes Discharge Instructions DIET: Follow Instructions for: Renal Failure Diet Additional Diet Instructions: <2 g of sodium, no protein restriction, and K 50 meq Activities you can perform: Regular-No Restrictions Follow up Referrals: Cardiology - 07/23/17 with Leland Lujan MD Nephrology - 1 Week with Kiah Cueto MD PCP Follow-up - 07/23/17 New Medications: Cinacalcet (Sensipar) 30 Mg Tab 60 MG PO AC DINNER for end stage renal disease, #60 TAB 0 Refills Metoprolol Tartrate (Metoprolol Tartrate) 25 Mg Tab 25 MG PO Q12HR for CAD/atrial fibrillation, #60 TAB 0 Refills Sevelamer Carbonate (Renvela) 800 Mg Tab 2400 MG PO TIDAC for renal failure, #270 TAB 0 Refills Warfarin (Coumadin) 5 Mg Tab 5 MG PO DAILY@1600 for stroke prevention, #10 TAB 0 Refills need INR check on Wednesday by your primary care physician or Physician'S Assistant so that coumadin dosage can be adjusted. Continued Medications: B-Complex W/ C & Folic Acid (Jennifer-Phani) 1 Tab 1 TAB PO DAILY, TAB Citalopram (Citalopram) 20 Mg Tab 20 MG PO DAILY for Control Depression, #30 TAB 0 Refills Diltiazem ER 12 HR (Diltiazem ER 12 HR) 120 Mg Caper 240 MG PO DAILY, #60 CAP 0 Refills Diphenhydramine (Diphenhydramine) 25 Mg Cap 25 MG PO Q12H PRN for ALLERGIES, CAP 0 Refills Ondansetron (Zofran) 4 Mg Tab 4 MG PO Q8HR PRN for NAUSEA OR VOMITING, TAB 0 Refills Discontinued Medications: Cinacalcet (Sensipar) 60 Mg Tab 120 MG PO HS, #60 TAB 0 Refills Losartan (Losartan) 50 Mg Tab 50 MG PO DAILY for Blood Pressure Management, #30 TAB 0 Refills Metoprolol Tartrate (Lopressor) 100 Mg Tab 100 MG PO BID, #60 TAB 0 Refills Sevelamer Carbonate (Renvela) 800 Mg Tab 800 MG PO TID for Control phosphorous levels, #90 TAB 0 Refills Maria Luisa Knott MD Jul 21, 2017 10:57
[2017-07-21] MEDS: SEVELAMER CARBONATE 800 MG TAB PO SCH ×3 (11:00→17:32)
[2017-07-21] MEDS: METOPROLOL TARTRATE 25 MG TAB PO SCH (11:01)
[2017-07-21] MEDS: CINACALCET HYDROCHLORIDE 30 MG TAB PO SCH (17:33)
[2017-07-21] MEDS: WARFARIN SOD 5 MG TAB PO SCH (17:33)
== END 2017-07-21 18:15 | DRG 308 ==
LOC: NEPC 22:35 → NEDA 07-16 01:00 → HIMN 07-16 01:45 → HIME 07-16 01:55 → HIMN 07-16 01:59 → HIME 07-16 02:07 → HIMN 07-16 02:08 → HCIN 07-16 19:50
PROVIDERS: ADMIT Family Medicine; ATTEND Family Medicine
PROC: 5A1D70Z Performance of Urinary Filtration, Intermittent, Less than 6 Hours Per Day (ICD-10-PCS; principal; 2017-07-16)
PROC: 5A2204Z Restoration of Cardiac Rhythm, Single (ICD-10-PCS; 2017-07-16)
DX: I49.5 Sick sinus syndrome (principal); N18.6 End stage renal disease; I13.2 Hypertensive heart and chronic kidney disease with heart failure and with stage 5 chronic kidney disease, or end stage renal disease; N25.81 Secondary hyperparathyroidism of renal origin; E88.89 Other specified metabolic disorders; I95.9 Hypotension, unspecified; E87.5 Hyperkalemia; I25.2 Old myocardial infarction; I50.9 Heart failure, unspecified; I48.2 Chronic atrial fibrillation; I35.1 Nonrheumatic aortic (valve) insufficiency; M16.0 Bilateral primary osteoarthritis of hip; F03.90 Unspecified dementia, unspecified severity, without behavioral disturbance, psychotic disturbance, mood disturbance, and anxiety; F32.9 Major depressive disorder, single episode, unspecified; F41.9 Anxiety disorder, unspecified; Z86.14 Personal history of Methicillin resistant Staphylococcus aureus infection; Z86.73 Personal history of transient ischemic attack (TIA), and cerebral infarction without residual deficits; Z91.030 Bee allergy status; Z99.2 Dependence on renal dialysis
CPT/HCPCS: 71010; 80048; 80053; 82550; 82948; 84100; 84484; 85025; 85027; 85610; 85730; 87641; 90935; 93005; 93306; 94667; 96374; 96375; J1265; J0461; J0610; J1815; J2060; J2270; J7030; J7060

== ENCOUNTER 2017-08-07 08:03 | Emergency (ER) | payer MEDICARE, MEDICAID ==
[~2017-08-07] VITALS: Ht 172.7 cm; Wt 83.0 kg
[~2017-08-07 08:03] MED LIST changes: +CINA30 PO; +COUM5TAB PO; -LOSA50TA PO; -METO-338 PO; +METO25TA3 PO; -SENS60TA PO
[2017-08-07 08:10] VITALS: BP 111/76; PULSE 94; RESP 23; TEMP 98.5; O2SAT 96
[2017-08-07 08:14] VITALS: BP 111/76; PULSE 91; RESP 16; O2SAT 97
[2017-08-07] MEDS ORDERED: METO25TA3 PO (08:30)
--- NOTE | 2017-08-07 08:51 | PD ---
HPI Chief Complaint: Bleeding Time Seen by Provider: 08:43 Travel History International Travel<30 days: No Contact w/Intl Traveler<30days: No Traveled to known affect area: No History of Present Illness HPI 62-year-old male complains of bleeding from AV fistula left arm. Patient has history of end-stage renal disease on dialysis Wednesday and Wednesday. Patient states that she started having bleeding from AV fistula in the left arm after dialysis yesterday. Patient states the bleeding persisted since then. Patient denies any other problem. A Band-Aid and dressing was applied to the left arm since yesterday. PFSH Past Medical History Hx Anticoagulant Therapy: Yes Arthritis: Yes (bilateral hips) Asthma: No Atrial Fibrillation: Yes Autoimmune Disease: No Blood Disorders: No Anxiety: Yes Depression: Yes Heart Rhythm Problems: Yes Cancer: No Cardiovascular Problems: Yes ([place]) High Cholesterol: No Chemotherapy: No Chest Pain: No Congestive Heart Failure: Yes COPD: No Cerebrovascular Accident: Yes Dementia: Yes Diabetes: No Dialysis: Yes ([facility]) Diminished Hearing: No Endocrine: No Gastrointestinal Disorders: No GERD: No Glaucoma: No Genitourinary: Yes (On dialysis) Headaches: No Hepatitis: No Hiatal Hernia: No Hypertension: Yes Immune Disorder: No Implanted Vascular Access Dvce: Yes (R ANTERIOR CHEST) Kidney Stones: No Musculoskeletal: No Neurologic: Yes Psychiatric: Yes Reproductive: No Respiratory: Yes (When in fluid overload from renal failure) Migraines: No Myocardial Infarction: Yes Radiation Therapy: No Renal Failure: Yes Seizures: No Sickle Cell Disease: No Sleep Apnea: No Thyroid Disease: No Ulcer: No Influenza Vaccination: Yes Past Surgical History Abdominal Surgery: No AICD: No Arteriovenous Shunt: Yes (Left forearm; AV FISTULA) Body Medical Devices: L AV GRAFT SHUNT - STATES REMOVED 12/01 AND VEIN GRAFT PLACED Cardiac Surgery: No Ear Surgery: No Endocrine Surgery: No Eye Surgery: No Genitourinary Surgery: No Gynecologic Surgery: No Insulin Pump: No Joint Replacement: No Oral Surgery: No Pacemaker: No Thoracic Surgery: No Other Surgery: Yes (lfa shunt, r shoulder surgery, vas cath to upper right chest) Social History Alcohol Use: Yes (1 beer every 6 months) Tobacco Use: No (never) Substance Use: No Allergies-Medications (Allergen,Severity, Reaction): Coded Allergies: bee venom protein (honey bee) (Unverified Allergy, Severe, Anaphylaxis, ) *MDRO Multi-Drug Resistant Organism (Verified Adverse Reaction, Unknown, 08/07/17) MRSA (leg/groin abscess) - 2006 *MRSA PCR negative 11/03/15 & 11/05/15. Pt does not require isolation for hx of MDRO prior to 11/05/15.* Uncoded Allergies: Contac cold medicine (Allergy, Severe, Hives, 01/08/17) allergy Reported Meds & Prescriptions Reported Meds & Active Scripts Active Sensipar (Cinacalcet) 30 Mg Tab 60 Mg PO AC DINNER Renvela (Sevelamer Carbonate) 800 Mg Tab 2,400 Mg PO TIDAC Coumadin (Warfarin) 5 Mg Tab 5 Mg PO DAILY@1600 need INR check on Wednesday by your primary care physician or Finishing Trimmer so that coumadin dosage can be adjusted. Reported Metoprolol Tartrate 25 Mg Tab 25 Mg PO BID Zofran (Ondansetron HCl) 4 Mg Tab 4 Mg PO Q8HR PRN Diphenhydramine (Diphenhydramine HCl) 25 Mg Cap 25 Mg PO Q12H PRN Jennifer-Phani (B-Complex W/ C & Folic Acid) 1 Tab 1 Tab PO DAILY Diltiazem ER 12 HR (Diltiazem HCl) 120 Mg Caper 240 Mg PO DAILY Citalopram (Citalopram Hydrobromide) 20 Mg Tab 20 Mg PO DAILY Review of Systems General / Constitutional: No: Fever Eyes: No: Visual changes HENT: No: Headaches Cardiovascular: No: Chest Pain or Discomfort Respiratory: No: Shortness of Breath Gastrointestinal: No: Abdominal Pain Genitourinary: No: Dysuria Musculoskeletal: No: Pain Skin: No Rash Neurologic: No: Weakness Psychiatric: No: Depression Endocrine: No: Polydipsia Hematologic/Lymphatic: No: Easy Bruising Physical Exam Narrative GENERAL: Well-nourished, well-developed patient. SKIN: Focused skin assessment warm/dry. HEAD: Normocephalic. EYES: No scleral icterus. No injection or drainage. NECK: Supple, trachea midline. No JVD or lymphadenopathy. CARDIOVASCULAR: Regular rate and rhythm without murmurs, gallops, or rubs. RESPIRATORY: Breath sounds equal bilaterally. No accessory muscle use. GASTROINTESTINAL: Abdomen soft, non-tender, nondistended. MUSCULOSKELETAL: No cyanosis, or edema. BACK: Nontender without obvious deformity. No CVA tenderness. Patient has a small area of bleeding on the skin above the left arm AV fistula. The bleeding seemed to come from the access to the AV fistula for dialysis. AV fistula functioning with good bruit . Data Data Last Documented VS Vital Signs Date Time Temp Pulse Resp B/P (MAP) Pulse Ox O2 Delivery O2 Flow Rate FiO2 08/07/17 08:14 91 16 111/76 (88) 97 Room Air 08/07/17 08:10 98.5 MDM Medical Decision Making Medical Screen Exam Complete: Yes Emergency Medical Condition: Yes Differential Diagnosis Differential diagnosis including bleeding from AV fistula. Narrative Course 62-year-old male with bleeding from AV fistula of the left arm from dialysis. Procedures Procedure Narrative Woundseal Powder applied to the bleeding source. The bleeding stopped. Dressing applied. Diagnosis Primary Impression: Hemorrhage of arteriovenous fistula Qualified Codes: T82.838A - Hemorrhage due to vascular prosthetic devices, implants and grafts, initial encounter Patient Instructions: General Instructions Additional Instructions: Follow-up is needed. Follow-up with personal physician and stucco mason. Med/Other Pt SpecificInfo: No Change to Meds Disposition: 03 DISCHARGE TO SNF Condition: Stable Mich Stuart MD Aug 07, 2017 08:51
== END 2017-08-07 10:32 ==
LOC: NEPE 08:03
DX: T82.838A Hemorrhage due to vascular prosthetic devices, implants and grafts, initial encounter (principal); Y84.1 Kidney dialysis as the cause of abnormal reaction of the patient, or of later complication, without mention of misadventure at the time of the procedure; I13.2 Hypertensive heart and chronic kidney disease with heart failure and with stage 5 chronic kidney disease, or end stage renal disease; I50.9 Heart failure, unspecified; N18.6 End stage renal disease; Z86.73 Personal history of transient ischemic attack (TIA), and cerebral infarction without residual deficits
CPT/HCPCS: 99283

== ENCOUNTER 2017-10-05 05:15 | Emergency (ER) | payer MEDICARE, MEDICAID ==
[~2017-10-05] VITALS: Ht 165.1 cm; Wt 75.0 kg
[2017-10-05 05:18] VITALS: BP 170/79; PULSE 87; RESP 18; TEMP 98.2; O2SAT 99
[2017-10-05] MEDS ORDERED: MORPHINE SULFATE 4 MG/ML INJ IV PUSH ONE (05:45)
[2017-10-05] MEDS ORDERED: SODIUM CHLORIDE 0.9% FLUSH 10 ML FLUSH IVF PRN (05:45)
[2017-10-05 05:47] VITALS: RESP 16
[2017-10-05] MEDS ORDERED: MORPHINE SULFATE 2 MG/ML INJ IV PUSH ONE (05:49)
[2017-10-05 06:08] VITALS: RESP 16
[2017-10-05] MEDS ORDERED: LIDOCAINE HCL 1% 20 ML VIAL INFIL ONE (06:15)
[2017-10-05] MEDS ORDERED: NORC5TAB PO (06:24)
--- NOTE | 2017-10-05 06:24 | PD ---
HPI Chief Complaint: Fall Time Seen by Provider: 05:17 Travel History International Travel<30 days: No Contact w/Intl Traveler<30days: No Traveled to known affect area: No History of Present Illness HPI Patient is a 62-year-old male presents emergency department after a [place] leading to left thumb and right wrist pain. Patient states she's had multiple trips and falls ever since having a stroke sometime ago. He states he just fell but denies any loss of consciousness, denies any head injury neck injury back injury chest pain abdomen pain or lower extremity pain. When asked to clarify if he loss his balance or tripped over something he cannot. He states he remembers falling however. Symptoms started just prior to arrival, extreme pain and right wrist, context as above, associated signs symptoms as above. PFSH Past Medical History Hx Anticoagulant Therapy: Yes Arthritis: Yes (bilateral hips) Asthma: No Atrial Fibrillation: Yes Autoimmune Disease: No Blood Disorders: No Anxiety: Yes Depression: Yes Heart Rhythm Problems: Yes Cancer: No Cardiovascular Problems: [place] ([place]) High Cholesterol: No Chemotherapy: No Chest Pain: No Congestive Heart Failure: Yes COPD: No Cerebrovascular Accident: Yes Dementia: Yes Diabetes: No Dialysis: Yes ([facility]) Diminished Hearing: No Endocrine: No Gastrointestinal Disorders: No GERD: No Glaucoma: No Genitourinary: Yes (On dialysis) Headaches: No Hepatitis: No Hiatal Hernia: No Hypertension: Yes Immune Disorder: No Implanted Vascular Access Dvce: Yes (R ANTERIOR CHEST) Kidney Stones: No Musculoskeletal: No Neurologic: Yes Psychiatric: Yes Reproductive: No Respiratory: Yes (When in fluid overload from renal failure) Immunizations Current: Yes Migraines: No Myocardial Infarction: Yes Radiation Therapy: No Renal Failure: Yes Seizures: No Sickle Cell Disease: No Sleep Apnea: No Thyroid Disease: No Ulcer: No Tetanus Vaccination: Unknown Influenza Vaccination: Yes Past Surgical History Abdominal Surgery: No AICD: No Arteriovenous Shunt: Yes (Left forearm; AV FISTULA) Body Medical Devices: L AV GRAFT SHUNT - STATES REMOVED 12/01 AND VEIN GRAFT PLACED Cardiac Surgery: No Ear Surgery: No Endocrine Surgery: No Eye Surgery: No Genitourinary Surgery: No Gynecologic Surgery: No Insulin Pump: No Joint Replacement: No Oral Surgery: No Pacemaker: No Thoracic Surgery: No Other Surgery: Yes (lfa shunt, r shoulder surgery, vas cath to upper right chest) Social History Alcohol Use: Yes (1 beer every 6 months) Tobacco Use: No (never) Substance Use: No Allergies-Medications (Allergen,Severity, Reaction): Coded Allergies: bee venom protein (honey bee) (Unverified Allergy, Severe, Anaphylaxis, 10/05/17) *MDRO Multi-Drug Resistant Organism (Verified Adverse Reaction, Unknown, ) MRSA (leg/groin abscess) - 2006 *MRSA PCR negative 11/03/15 & 11/05/15. Pt does not require isolation for hx of MDRO prior to 11/05/15.* Uncoded Allergies: Contac cold medicine (Allergy, Severe, Hives, 01/08/17) allergy Reported Meds & Prescriptions Reported Meds & Active Scripts Active Benton (Hydrocodone-Acetaminophen) 5 Mg-325 Mg Tab 1 Tab PO Q6H PRN Sensipar (Cinacalcet) 30 Mg Tab 60 Mg PO AC DINNER Renvela (Sevelamer Carbonate) 800 Mg Tab 2,400 Mg PO TIDAC Coumadin (Warfarin) 5 Mg Tab 5 Mg PO DAILY@1600 need INR check on Wednesday by your primary care physician or Commercial Fishing Vessel Operator so that coumadin dosage can be adjusted. Reported Metoprolol Tartrate 25 Mg Tab 25 Mg PO BID Zofran (Ondansetron HCl) 4 Mg Tab 4 Mg PO Q8HR PRN Diphenhydramine (Diphenhydramine HCl) 25 Mg Cap 25 Mg PO Q12H PRN Jennifer-Phani (B-Complex W/ C & Folic Acid) 1 Tab 1 Tab PO DAILY Diltiazem ER 12 HR (Diltiazem HCl) 120 Mg Caper 240 Mg PO DAILY Citalopram (Citalopram Hydrobromide) 20 Mg Tab 20 Mg PO DAILY Review of Systems Except as stated in HPI: all other systems reviewed are Neg Physical Exam Narrative GENERAL: Well-developed well-nourisheddistress SKIN: Focused skin assessment warm/dry. HEAD: Atraumatic. Normocephalic. EYES: Pupils equal and round. No scleral icterus. No injection or drainage. ENT: No nasal bleeding or discharge. Mucous membranes pink and moist. NECK: Trachea midline. No JVD. CARDIOVASCULAR: Regular rate and rhythm. No murmur appreciated. RESPIRATORY: No accessory muscle use. Clear to auscultation. Breath sounds equal bilaterally. GASTROINTESTINAL: Abdomen soft, non-tender, nondistended. Hepatic and splenic margins not palpable. MUSCULOSKELETAL: Mild volar angulation at the right wrist, 2+ bilateral equal pulses are felt in all 4 extremities. Compartments are soft. Pulses motor and sensory intact distally in all 4 extremities. There is also small abrasion over the palmar/webspace between the thumb and the first finger on the left. The dermis is not exposed. There is some tenderness at the proximal phalanx of this digit. The remainder of the digits are atraumatic. Small bruising on the palmar aspect of the left hand. No midline CT or L-spine tenderness. Remainder of extremities are atraumatic. No clubbing. No cyanosis. No edema. NEUROLOGICAL: Awake and alert. No obvious cranial nerve deficits. Motor grossly within normal limits. Normal speech. PSYCHIATRIC: Appropriate mood and affect; insight and judgment normal. Data Data Last Documented VS Vital Signs Date Time Temp Pulse Resp B/P (MAP) Pulse Ox O2 Delivery O2 Flow Rate FiO2 10/05/17 06:08 16 10/05/17 05:18 98.2 87 170/79 (109) 99 Orders Orders Wrist, Complete (Ogo3rsv) (10/05/17 ) Hand, Complete (Giq1ros) (10/05/17 ) Ecg Monitoring (10/05/17 05:31) Iv Access Insert/Monitor (10/05/17 05:31) Oximetry (10/05/17 05:31) Morphine Inj (Morphine Inj) (10/05/17 05:45) Sodium Chloride 0.9% Flush (Ns Flush) (10/05/17 05:45) Morphine Inj (Morphine Inj) (10/05/17 05:49) Lidocaine 1% Inj (Xylocaine 1% Inj) (10/05/17 06:15) Wrist, Limited (Ap&Lat) (10/05/17 ) Ed Discharge Order (10/05/17 06:37) Fiberglass Sugartong Sp Ad Arm (10/05/17 ) Fiberglass Thumb Spica Adult (10/05/17 ) Sling Cradle Arm (10/05/17 ) MDM Medical Decision Making Medical Screen Exam Complete: Yes Emergency Medical Condition: Yes Differential Diagnosis Fall, right wrist fracture, left thumb fracture Narrative Course Patient roomed emergency department, he appears well, x-ray findings as below: Last 24 hours Impressions Wrist X-Ray 10/05/17 0000 Signed Impressions: Service Date/Time: Thursday, October 05, 2017 06:34 - CONCLUSION: 1. Satisfactory alignment Dc Gordon MD Wrist X-Ray 10/05/17 0000 Signed Impressions: Service Date/Time: Thursday, October 05, 2017 05:31 - CONCLUSION: 1. Fracture distal radius and ulna Dc Gordon MD Hand X-Ray 10/05/17 0000 Signed Impressions: Service Date/Time: Thursday, October 05, 2017 05:36 - CONCLUSION: 1. Fracture proximal phalanx first digit and head of the second metacarpal. Dc Gordon MD Patient placed in splints, hematoma block of the right wrist. No indication further workup at this time, would like to have seen a little bit better alignment of the right wrist however the patient is certainly a high risk sedation in the emergency department and despite the risks of arthritis the patient states he would not want surgery anyways. At this time he was referred to hand surgery and orthopedic surgery. He did have an IV site at the right before meals as he does have a left AV fistula, this was removed prior to placing the splint. He is stable for discharge Diagnosis Primary Impression: Fracture of thumb, left, closed Additional Impression: Right wrist fracture Referrals: Juan Carlos Salmon Jr., MD,Nallely Moraes MD Med/Other Pt SpecificInfo: Prescription(s) given Scripts Hydrocodone-Acetaminophen (Benton) 5 Mg-325 Mg Tab 1 TAB PO Q6H Y for PAIN, #15 TAB 0 Refills Prov: Turner Haddad MD 10/05/17 Disposition: 01 DISCHARGE HOME Condition: Stable Turner Haddad MD Oct 05, 2017 06:24
--- NOTE | 2017-10-05 06:31 | RADRPT ---
EXAM DATE/TIME: 10/05/2017 05:31 [facility] COMPARISON: No previous studies available for comparison. INDICATIONS : Fall, wrist pain. MEDICAL HISTORY : None. SURGICAL HISTORY : None. ENCOUNTER: Initial ACUITY: 1 day PAIN SCORE: 8/10 LOCATION: Right wrist FINDINGS: There is nondisplaced fracture of the distal radius and ulna. Carpal bones are intact. Bony mineraliz ation is normal. CONCLUSION: 1. Fracture distal radius and ulna Dc Gordon MD on October 05, 2017 at 6:28 Board Certified Radiologist. This report was verified electronically.
--- NOTE | 2017-10-05 06:32 | RADRPT ---
EXAM DATE/TIME: 10/05/2017 05:36 [facility] COMPARISON: No previous studies available for comparison. INDICATIONS : Fall, pain in left hand at 1st digit. MEDICAL HISTORY : None. SURGICAL HISTORY : None. ENCOUNTER: Initial ACUITY: 1 day PAIN SCORE: 3/10 LOCATION: Left hand FINDINGS: Fracture of distal radius and ulna are identified. There is a fracture of the proximal phalanx of the first digit and the head of the second metacarpal. CONCLUSION: 1. Fracture proximal phalanx first digit and head of the second metacarpal. Dc Gordon MD on October 05, 2017 at 6:28 Board Certified Radiologist. This report was verified electronically.
--- NOTE | 2017-10-05 06:59 | RADRPT ---
EXAM DATE/TIME: 10/05/2017 06:34 [facility] COMPARISON: No previous studies available for comparison. INDICATIONS : Post reduction. MEDICAL HISTORY : None. SURGICAL HISTORY : None. ENCOUNTER: Initial ACUITY: 1 day PAIN SCORE: 4/10 LOCATION: Right wrist FINDINGS: A splint is in place across the fracture of the distal radius and ulna. The alignment is anatomic. CONCLUSION: 1. Satisfactory alignment Dc Gordon MD on October 05, 2017 at 6:56 Board Certified Radiologist. This report was verified electronically.
== END 2017-10-05 08:25 | disposition home or self-care (01) ==
LOC: NEPE 05:15
DX: S62.512A Displaced fracture of proximal phalanx of left thumb, initial encounter for closed fracture (principal); S62.391A Other fracture of second metacarpal bone, left hand, initial encounter for closed fracture; S52.501A Unspecified fracture of the lower end of right radius, initial encounter for closed fracture; S52.601A Unspecified fracture of lower end of right ulna, initial encounter for closed fracture; W01.0XXA Fall on same level from slipping, tripping and stumbling without subsequent striking against object, initial encounter; Y92.129 Unspecified place in nursing home as the place of occurrence of the external cause
CPT/HCPCS: 29125; 73100; 73110; 73130; 96374; 99284; J2270; L3808

== ENCOUNTER 2017-12-24 07:53 | Observation (INO) | payer MEDICAID, MEDICARE ==
[~2017-12-24] VITALS: Ht 172.7 cm; Wt 80.0 kg
[~2017-12-24 07:53] MED LIST changes: +NORC5TAB PO
[2017-12-24 08:00] VITALS: BP 117/75; RESP 17; TEMP 97.6
[2017-12-24] MEDS ORDERED: MELA5 PO (08:15)
[2017-12-24] MEDS ORDERED: WARF-58 PO (08:15)
--- NOTE | 2017-12-24 08:15 | PD ---
HPI Chief Complaint: GI Complaint Time Seen by Provider: 08:04 Travel History International Travel<30 days: No Contact w/Intl Traveler<30days: No Traveled to known affect area: No History of Present Illness HPI This is a 62-year-old male with a history of end-stage renal disease/dialysis dependent, atrial fibrillation, who presents today with complaints of shortness of breath. Patient also reports diarrhea 2-3 weeks. He reports that he has watery stools up to 3 or 4 bowel movements daily. He denies any foul smell. He is scheduled for dialysis today however he felt so weak that he could not go. Patient also reports cough with productive white phlegm. There is no reported fevers, chills. The patient does not make urine. There are no other complaints at the time of my examination. PFSH Past Medical History Hx Anticoagulant Therapy: Yes Arthritis: Yes (bilateral hips) Asthma: No Atrial Fibrillation: Yes Autoimmune Disease: No Blood Disorders: No Anxiety: Yes Depression: Yes Heart Rhythm Problems: Yes Cancer: No Cardiovascular Problems: Yes (A.fib) High Cholesterol: No Chemotherapy: No Chest Pain: No Congestive Heart Failure: Yes COPD: No Cerebrovascular Accident: Yes Dementia: Yes Diabetes: No Dialysis: Yes (MW) Diminished Hearing: No Endocrine: No Gastrointestinal Disorders: No GERD: No Glaucoma: No Genitourinary: Yes (On dialysis) Headaches: No Hepatitis: No Hiatal Hernia: No Hypertension: Yes Immune Disorder: No Implanted Vascular Access Dvce: Yes (R ANTERIOR CHEST) Kidney Stones: No Musculoskeletal: No Neurologic: Yes Psychiatric: Yes Reproductive: No Respiratory: Yes (When in fluid overload from renal failure) Immunizations Current: Yes Migraines: No Myocardial Infarction: Yes Radiation Therapy: No Renal Failure: Yes Seizures: No Sickle Cell Disease: No Sleep Apnea: No Thyroid Disease: No Ulcer: No ?: Not Past Surgical History Abdominal Surgery: No AICD: No Arteriovenous Shunt: Yes (Left forearm; AV FISTULA) Body Medical Devices: L AV GRAFT SHUNT - STATES REMOVED 12/01 AND VEIN GRAFT PLACED Cardiac Surgery: No Ear Surgery: No Endocrine Surgery: No Eye Surgery: No Genitourinary Surgery: No Gynecologic Surgery: No Insulin Pump: No Joint Replacement: No Oral Surgery: No Pacemaker: No Thoracic Surgery: No Other Surgery: Yes (lfa shunt, r shoulder surgery, vas cath to upper right chest) Social History Alcohol Use: Yes (1 beer every 6 months) Tobacco Use: No (never) Substance Use: No Allergies-Medications (Allergen,Severity, Reaction): Coded Allergies: bee venom protein (honey bee) (Unverified Allergy, Severe, Anaphylaxis, 10/05/17) *MDRO Multi-Drug Resistant Organism (Verified Adverse Reaction, Unknown, ) MRSA (leg/groin abscess) - 2006 *MRSA PCR negative 11/03/15 & 11/05/15. Pt does not require isolation for hx of MDRO prior to 11/05/15.* Uncoded Allergies: Contac cold medicine (Allergy, Severe, Hives, 01/08/17) allergy Reported Meds & Prescriptions Reported Meds & Active Scripts Active [place] (Hydrocodone-Acetaminophen) 5 Mg-325 Mg Tab 1 Tab PO Q6H PRN Sensipar (Cinacalcet) 30 Mg Tab 60 Mg PO AC DINNER Renvela (Sevelamer Carbonate) 800 Mg Tab 2,400 Mg PO TIDAC Reported Warfarin 3 Mg Tab 3 Mg PO DAILY Melatonin 5 Mg Tab 6 Mg PO HS Metoprolol Tartrate 25 Mg Tab 25 Mg PO BID Zofran (Ondansetron HCl) 4 Mg Tab 4 Mg PO Q8HR PRN Diphenhydramine (Diphenhydramine HCl) 25 Mg Cap 25 Mg PO Q12H PRN Jennifer-Phani (B-Complex W/ C & Folic Acid) 1 Tab 1 Tab PO DAILY Diltiazem ER 12 HR (Diltiazem HCl) 120 Mg Caper 240 Mg PO DAILY Citalopram (Citalopram Hydrobromide) 20 Mg Tab 30 Mg PO DAILY Review of Systems Except as stated in HPI: all other systems reviewed are Neg General / Constitutional: No: Fever, Chills HENT: No: Headaches, Lightheadedness Cardiovascular: No: Chest Pain or Discomfort, Palpitations Respiratory: Positive: Cough, No: Shortness of Breath Gastrointestinal: Positive: Diarrhea, No: Nausea, Vomiting, Abdominal Pain Genitourinary: Positive: Other (Does not make urine) Musculoskeletal: Positive: Weakness, No: Pain Neurologic: Positive: Weakness, No: Dizziness, Headache Physical Exam Narrative GENERAL: Well-developed well-nourished male in no acute respiratory distress. SKIN: Focused skin assessment warm/dry. HEAD: Atraumatic. Normocephalic. EYES: Pupils equal and round. No scleral icterus. No injection or drainage. ENT: No nasal bleeding or discharge. Mucous membranes pale and dry. NECK: Trachea midline. Supple. CARDIOVASCULAR: Irregularly irregular rate in the 80s and 90s. Holosystolic murmur heard at the left sternal border. RESPIRATORY: Coarse rhonchi and rales bilaterally. GASTROINTESTINAL: Abdomen soft, non-tender, nondistended. MUSCULOSKELETAL: No obvious deformities. No clubbing. No cyanosis. No edema. AV fistula in the left forearm. Positive thrill. NEUROLOGICAL: Awake and alert. No obvious cranial nerve deficits. Motor grossly within normal limits. Normal speech. Data Data Last Documented VS Vital Signs Date Time Temp Pulse Resp B/P (MAP) Pulse Ox O2 Delivery O2 Flow Rate FiO2 12/24/17 08:20 18 12/24/17 08:20 87 97 Room Air 12/24/17 08:00 97.6 117/75 (89) Orders Orders Electrocardiogram (12/24/17 08:04) Complete Blood Count With Diff (12/24/17 08:04) Comprehensive Metabolic Panel (12/24/17 08:04) Magnesium (Mg) (12/24/17 08:04) Phosphorus (Po4) (12/24/17 08:04) Enteric Path (Stool) (12/24/17 08:04) C Diff Toxin Pcr (12/24/17 08:04) Chest, Single Ap (12/24/17 08:04) Iv Access Insert/Monitor (12/24/17 08:04) Ecg Monitoring (12/24/17 08:04) Oximetry (12/24/17 08:04) Prothrombin Time / Inr (Pt) (12/24/17 08:10) Act Partial Throm Time (Ptt) (12/24/17 08:10) Diet Renal (12/24/17 Lunch) Admit Order (Ed Use Only) (12/24/17 10:28) Labs Laboratory Tests Test 12/24/17 08:20 White Blood Count 5.7 TH/MM3 Red Blood Count 4.60 MIL/MM3 Hemoglobin 12.8 GM/DL Hematocrit 39.0 % Mean Corpuscular Volume 84.8 FL Mean Corpuscular Hemoglobin 27.8 PG Mean Corpuscular Hemoglobin Concent 32.8 % Red Cell Distribution Width 17.8 % Platelet Count 271 TH/MM3 Mean Platelet Volume 7.0 FL Neutrophils (%) (Auto) 78.1 % Lymphocytes (%) (Auto) 12.4 % Monocytes (%) (Auto) 7.4 % Eosinophils (%) (Auto) 1.2 % Basophils (%) (Auto) 0.9 % Neutrophils # (Auto) 4.5 TH/MM3 Lymphocytes # (Auto) 0.7 TH/MM3 Monocytes # (Auto) 0.4 TH/MM3 Eosinophils # (Auto) 0.1 TH/MM3 Basophils # (Auto) 0.0 TH/MM3 CBC Comment DIFF FINAL Differential Comment Prothrombin Time 36.3 SEC Prothromb Time International Ratio 3.6 RATIO Activated Partial Thromboplast Time 47.8 SEC Blood Urea Nitrogen 51 MG/DL Creatinine 8.83 MG/DL Random Glucose 75 MG/DL Total Protein 7.3 GM/DL Albumin 2.9 GM/DL Calcium Level 8.1 MG/DL Phosphorus Level 4.6 MG/DL Magnesium Level 2.3 MG/DL Alkaline Phosphatase 227 U/L Aspartate Amino Transf (AST/SGOT) 21 U/L Alanine Aminotransferase (ALT/SGPT) 19 U/L Total Bilirubin 0.8 MG/DL Sodium Level 137 MEQ/L Potassium Level 4.8 MEQ/L Chloride Level 103 MEQ/L Carbon Dioxide Level 20.4 MEQ/L Anion Gap 14 MEQ/L Estimat Glomerular Filtration Rate 6 ML/MIN MDM Medical Decision Making Medical Screen Exam Complete: Yes Emergency Medical Condition: Yes Differential Diagnosis Metabolic derangement versus C. difficile versus pneumonia versus fluid overload Narrative Course 62-year-old male with history of renal failure, presents today with complaints of weakness and diarrhea. Patient reports diarrhea 2-3 weeks. He is scheduled to have dialysis today however was too weak to go to dialysis. The patient has labs consistent with his renal failure. He will be admitted to the hospital under observation and be dialyzed. His linen room houseperson is Dr. Nidhi Roper. We are currently awaiting stool samples to send off for possible C. difficile. Diagnosis Primary Impression: Weakness Additional Impressions: End-stage renal disease, dialysis dependent Reported diarrhea Over anticoagulated History of atrial fibrillation Admitting Information Admitting Physician Requests: Observation Ck Echevarria MD Dec 24, 2017 08:15
[2017-12-24 08:20] VITALS: PULSE 87; RESP 18; O2SAT 97
[2017-12-24 08:33] LABS: AUTOMATED NEUTROPHIL # 4.5 TH/MM3 (1.8-7.7); BASOPHIL % 0.9 % (0.0-2.0); EOSINOPHIL # 0.1 TH/MM3 (0-0.4); EOSINOPHIL % 1.2 % (0.0-4.0); HEMOGLOBIN 12.8 GM/DL (13.0-17.0); LYMPH % 12.4 % (9.0-44.0); LYMPHOCYTE # 0.7 TH/MM3 (1.0-4.8); MEAN CELL VOLUME 84.8 FL (80.0-100.0); MEAN CORPUSCULAR HEMOGLOBIN 27.8 PG (27.0-34.0); MEAN CORPUSCULAR HGB CONC 32.8 % (32.0-36.0); MONO % 7.4 % (0.0-8.0); MONOCYTE # 0.4 TH/MM3 (0-0.9); NEUT % 78.1 % (16.0-70.0); PLATELET COUNT 271 TH/MM3 (150-450); RED CELL DISTRIBUTION WIDTH 17.8 % (11.6-17.2); WHITE BLOOD COUNT 5.7 TH/MM3 (4.0-11.0)
[2017-12-24 08:42] LABS: INTERNATIONAL NORMALIZED RATIO 3.6 RATIO; PROTHROMBIN TIME - PATIENT 36.3 SEC (9.8-11.6)
[2017-12-24 08:53] LABS: ALBUMIN 2.9 GM/DL (3.4-5.0); AST (GOT) 21 U/L (15-37); BICARBONATE 20.4 MEQ/L (21.0-32.0); BLOOD UREA NITROGEN 51 MG/DL (7-18); CALCIUM 8.1 MG/DL (8.5-10.1); CHLORIDE 103 MEQ/L (98-107); CREATININE 8.83 MG/DL (0.60-1.30); GLOMERULAR FILTRATION RATE 6 ML/MIN (>89); GLUCOSE,RANDOM 75 MG/DL (74-106); MAGNESIUM 2.3 MG/DL (1.5-2.5); SODIUM (NA) 137 MEQ/L (136-145)
[2017-12-24 08:54] LABS: ALT (GPT) 19 U/L (12-78); PHOSPHORUS 4.6 MG/DL (2.5-4.9)
[2017-12-24 08:56] LABS: ALKALINE PHOSPHATASE 227 U/L (45-117); TOTAL BILIRUBIN ADULT 0.8 MG/DL (0.2-1.0); TOTAL PROTEIN 7.3 GM/DL (6.4-8.2)
--- NOTE | 2017-12-24 08:56 | RADRPT ---
EXAM DATE/TIME: 12/24/2017 08:22 [place] COMPARISON: CHEST SINGLE AP, July 15, 2017, 22:56. INDICATIONS : Cough. Patienrt complains of nausea and diarrhea. MEDICAL HISTORY : Hypertension. Myocardial infarction. Congestive heart failure.CVA. Renal failure. Dialysis SURGICAL HISTORY : None. ENCOUNTER: Initial ACUITY: 3 weeks PAIN SCORE: 0/10 LOCATION: Bilateral chest abdomen. FINDINGS: Heart is moderately enlarged. Lungs are free of significant congestion or acute air space disease. Mild interstitial vascular prominence due to hypoaeration. Osseous structures appear intact. CONCLUSION: Cardiomegaly without evidence of significant congestion or acute air space disease there Nadir Andrews MD on December 24, 2017 at 8:54 Board Certified Radiologist. This report was verified electronically.
[2017-12-24] MEDS ORDERED: SODIUM CHLOR 0.9% 1000 ML INJ 1,000 ML OTHER PRN ×2 (11:16)
[2017-12-24] MEDS ORDERED: SODIUM CHLOR 0.9% 1000 ML INJ 1,000 ML IV PRN (11:16)
--- NOTE | 2017-12-24 11:23 | PD.CONS ---
[facility] Service Nephrology Consult Requested By Reason for Consult ESRD on HD Primary Care Physician Nadir Cota M.D. History of Present Illness This is a 61 y/o male patient with whom we follow in outpatient setting. He normally dialyzes MWF. His PMH consists of HTN, metabolic bone disorder, A fib, and CVA. He presented today with diarrhea and dark stool for 2 weeks. At the senior care he may have been given antibiotics recently for URI, unsure of the name or if he finished the full course. His abdomen is distended, firm on exam. His PO appetite is poor. We were consulted to assist with dialysis management. He is due today, has not missed treatments. HE is a full code. (Chinyere Rodriguez) Review of Systems Constitutional: DENIES: Fatigue, Weight gain Cardiovascular: DENIES: Chest pain Gastrointestinal: COMPLAINS OF: Black stools, Diarrhea, DENIES: Abdominal pain , Bloody stools, Constipation (Chinyere Rodriguez) Past Family Social History Allergies: Coded Allergies: bee venom protein (honey bee) (Unverified Allergy, Severe, Anaphylaxis, 10/05/17) *MDRO Multi-Drug Resistant Organism (Verified Adverse Reaction, Unknown, ) MRSA (leg/groin abscess) - 2006 *MRSA PCR negative 11/03/15 & 11/05/15. Pt does not require isolation for hx of MDRO prior to 11/05/15.* Uncoded Allergies: Contac cold medicine (Allergy, Severe, Hives, 01/08/17) allergy Past Medical History ESRD on HD MWF HTN anemia metabolic bone disorder COPD CHF A fib CVA Depression Developmental disorder Past Surgical History left arm AV graft with revision shoulder Reported Medications [place] (Hydrocodone-Acetaminophen) 5 Mg-325 Mg Tab 1 Tab PO Q6H PRN Sensipar (Cinacalcet) 30 Mg Tab 60 Mg PO AC DINNER Renvela (Sevelamer Carbonate) 800 Mg Tab 2,400 Mg PO TIDAC Reported Warfarin 3 Mg Tab 3 Mg PO DAILY Melatonin 5 Mg Tab 6 Mg PO HS Metoprolol Tartrate 25 Mg Tab 25 Mg PO BID Zofran (Ondansetron HCl) 4 Mg Tab 4 Mg PO Q8HR PRN Diphenhydramine (Diphenhydramine HCl) 25 Mg Cap 25 Mg PO Q12H PRN Jennifer-Phani (B-Complex W/ C & Folic Acid) 1 Tab 1 Tab PO DAILY Diltiazem ER 12 HR (Diltiazem HCl) 120 Mg Caper 240 Mg PO DAILY Citalopram (Citalopram Hydrobromide) 20 Mg Tab 30 Mg PO DAILY Active Ordered Medications No medications ordered as of this time Family History Non contributory Social History resides in Assisted Living no hx of smoking remote hx of ETOH 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 , no guarding or rebound tenderness extremities: no edema, AV graft in left arm + thrill/bruit; has pseudoaneurysm he has multiple scratch garcia on his body Laboratory Laboratory Tests Test 12/24/17 08:20 12/24/17 10:45 White Blood Count 5.7 Red Blood Count 4.60 Hemoglobin 12.8 Hematocrit 39.0 Mean Corpuscular Volume 84.8 Mean Corpuscular Hemoglobin 27.8 Mean Corpuscular Hemoglobin Concent 32.8 Red Cell Distribution Width 17.8 Platelet Count 271 Mean Platelet Volume 7.0 Neutrophils (%) (Auto) 78.1 Lymphocytes (%) (Auto) 12.4 Monocytes (%) (Auto) 7.4 Eosinophils (%) (Auto) 1.2 Basophils (%) (Auto) 0.9 Neutrophils # (Auto) 4.5 Lymphocytes # (Auto) 0.7 Monocytes # (Auto) 0.4 Eosinophils # (Auto) 0.1 Basophils # (Auto) 0.0 CBC Comment DIFF FINAL Differential Comment Prothrombin Time 36.3 Prothromb Time International Ratio 3.6 Activated Partial Thromboplast Time 47.8 Blood Urea Nitrogen 51 Creatinine 8.83 Random Glucose 75 Total Protein 7.3 Albumin 2.9 Calcium Level 8.1 Phosphorus Level 4.6 Magnesium Level 2.3 Alkaline Phosphatase 227 Aspartate Amino Transf (AST/SGOT) 21 Alanine Aminotransferase (ALT/SGPT) 19 Total Bilirubin 0.8 Sodium Level 137 Potassium Level 4.8 Chloride Level 103 Carbon Dioxide Level 20.4 Anion Gap 14 Estimat Glomerular Filtration Rate 6 Date/Time Source Procedure Growth Status 12/24/17 10:45 Stool Stool Pending Received (Chinyere Rodriguez) Result Diagram: 12/24/17 0820 12/24/17 0820 Imaging Last 72 hours Impressions Chest X-Ray 12/24/17 0804 Signed Impressions: Service Date/Time: Sunday, December 24, 2017 08:22 - CONCLUSION: Cardiomegaly without evidence of significant congestion or acute air space disease there Nadir Andrews MD (Chinyere Rodriguez) Assessment and Plan Problem List: (1) ESRD on hemodialysis ICD Codes: N18.6 - End-stage renal disease on hemodialysis; Z99.2 - Dependence on renal dialysis Status: Chronic Plan: HD MWF, due today Has patent AVF for treatment Avoid IVF administration, gadolinium is contraindicated Obtain labs intermittently Epogen not required (2) Abdominal distension ICD Codes: R14.0 - Abdominal distension (gaseous) Plan: With diarrhea C diff studies sent Obtain abd US to evaluate for ascites Management per hospitalist (3) Hypertension ICD Codes: I10 - Hypertension Status: Chronic Plan: Resume home medications (4) Metabolic bone disease ICD Codes: M89.8X9 - Metabolic bone disease Status: Acute Plan: Resume Renvela with meals if he is not NPO (Chinyere Rodriguez) Assessment and Plan patient was seen and examined. Being admitted with complaints of diarrhea and abdominal distension. Abdominal US ordered. (Varun Chisholm MD) Chinyere Rodriguez Dec 24, 2017 11:23 Varun Chisholm MD Dec 27, 2017 10:42
[2017-12-24] MEDS ORDERED: HEPARIN SODIUM - IV 10,000 UNITS/10 ML VIAL PRN (11:30)
[2017-12-24] MEDS ORDERED: MANNITOL 12.5 GM/50 ML VIAL IV PRN (11:30)
[2017-12-24] MEDS ORDERED: HEPARIN SODIUM - IV 10,000 UNITS/10 ML VIAL IV FLUSH PRN (11:30)
[2017-12-24] MEDS ORDERED: ONDANSETRON HCL 4 MG/2 ML VIAL IV PUSH PRN ×2 (11:30→12:45)
[2017-12-24] MEDS ORDERED: GENTAMICIN SULFATE 20 MG/2 ML VIAL OTHER PRN (11:30)
[2017-12-24] MEDS ORDERED: ALBUMIN 25% INJ 100 ML IV PRN (11:30)
[2017-12-24] MEDS ORDERED: GELATIN 12 MM/7 MM FOAM TOP PRN (11:30)
[2017-12-24] MEDS ORDERED: ACETAMINOPHEN 325 MG TAB PO PRN ×2 (11:30→12:45)
[2017-12-24] MEDS ORDERED: SODIUM CHLORIDE 0.9% FLUSH 10 ML FLUSH IV FLUSH PRN (11:30)
[2017-12-24] MEDS ORDERED: diphenhydrAMINE HCL 25 MG CAP PO PRN (11:30)
[2017-12-24] MEDS ORDERED: NITROGLYCERIN 0.4 MG SL 25 TABS/BTL SL PRN (11:30)
[2017-12-24] MEDS ORDERED: cloNIDine HCL 0.1 MG TAB PO PRN (11:30)
[2017-12-24 11:48] VITALS: O2SAT 97
[2017-12-24] MEDS ORDERED: SEVELAMER CARBONATE 800 MG TAB PO SCH (12:00)
--- NOTE | 2017-12-24 12:32 | HHI.HP ---
[facility] Service [facility] Primary Care Physician Nadir Cota M.D. Admission Diagnosis weakness, end stage renal disease, diarrha, Diagnoses: (1) Diarrhea Diagnosis: Principal (2) Weakness Diagnosis: Secondary Chief Complaint: diarrhea Travel History International Travel<30 Days: No Contact w/Intl Traveler <30 Da: No Traveled to Known Affected Are: No History of Present Illness patient is a 62 y/o male with history of ESRD, on HD, CAD, CVA, atrial fibrillation who presented to ER with diarrhea. he says that he's had non- bloody diarrhea for three weeks. he denies any abdominal pain, fever or chills. had on and off nausea. he says that he took some antibiotics for his cold recently. he's on // schedule for his HD and the last HD was on wednesday. he denies any chest pain or sob. Past Family Social History Past Medical History Atrial fibrillation Bilateral hip arthritis Anxiety Depression Prior myocardial infarction Congestive heart failure, unknown type CVA Dementia End-stage renal disease with intermittent hemodialysis Wednesday/Wednesday/Wednesday Past Surgical History Past Surgical History Left forearm AV fistula Right shoulder surgery Right upper chest Vas-Cath Reported Medications Warfarin 3 Mg Tab 3 Mg PO DAILY Melatonin 5 Mg Tab 6 Mg PO HS Metoprolol Tartrate 25 Mg Tab 25 Mg PO BID Zofran (Ondansetron HCl) 4 Mg Tab 4 Mg PO Q8HR PRN Diphenhydramine (Diphenhydramine HCl) 25 Mg Cap 25 Mg PO Q12H PRN Jennifer-Phani (B-Complex W/ C & Folic Acid) 1 Tab 1 Tab PO DAILY Diltiazem ER 12 HR (Diltiazem HCl) 120 Mg Caper 240 Mg PO DAILY Citalopram (Citalopram Hydrobromide) 20 Mg Tab 30 Mg PO DAILY Allergies: Coded Allergies: bee venom protein (honey bee) (Unverified Allergy, Severe, Anaphylaxis, 10/05/17) *MDRO Multi-Drug Resistant Organism (Verified Adverse Reaction, Unknown, ) MRSA (leg/groin abscess) - 2006 *MRSA PCR negative 11/03/15 & 11/05/15. Pt does not require isolation for hx of MDRO prior to 11/05/15.* Uncoded Allergies: Contac cold medicine (Allergy, Severe, Hives, 01/08/17) allergy Active Ordered Medications Inpatient Medications Acetaminophen (Tylenol) 650 mg UNSCH PRN PO for headach, pain, temp > 101F; Start 12/24/17 at 11:30 Albumin Human 100 ml @ 60 mls/hr UNSCH PRN IV WITH DIALYSIS; Start 12/24/17 at 11:30 Cinacalcet (Sensipar) 60 mg AC DINNER PO ; Start 12/24/17 at 16:00; Status UNV Citalopram Hydrobromide (CeleXA) 30 mg DAILY PO ; Start 12/25/17 at 09:00; Status UNV Clonidine (Catapres) 0.1 mg UNSCH PRN PO for BP > 180/100 X 2 readings; Start 12/24/17 at 11:30 Diphenhydramine HCl (Benadryl) 25 mg UNSCH PRN PO for hives/itching/anaphylaxis ; Start 12/24/17 at 11:30 Gelatin (Gelfoam 12 Mm/7 Mm Top) 1 foam UNSCH PRN TOP SEE LABEL COMMENTS; Start 12/24/17 at 11:30 Gentamicin Sulfate (Gentamicin Inj) 20 mg UNSCH PRN OTHER WITH DIALYSIS; Start 12/24/17 at 11:30 Heparin Sodium (Porcine) (Heparin Inj) UNSCH PRN .XX WITH DIALYSIS; Start at 11:30 Mannitol (Mannitol Inj) 12.5 gm UNSCH PRN IV WITH DIALYSIS; Start 12/24/17 at 11:30 Metoprolol Tartrate (Lopressor) 25 mg BID PO ; Start 12/24/17 at 21:00; Status UNV Nitroglycerin (Nitrostat Sl) 0.4 mg UNSCH PRN SL CHEST PAIN; Start 12/24/17 at 11:30 Non-Formulary Medication 240 mg DAILY PO ; Start 12/25/17 at 09:00; Status UNV Ondansetron HCl (Zofran Inj) 4 mg UNSCH PRN IV PUSH WITH DIALYSIS; Start at 11:30 Sevelamer Carbonate (Renvela) 2,400 mg TIDAC PO ; Start 12/24/17 at 17:00; Status UNV Sodium Chloride (NS Flush) 5 ml UNSCH PRN IV FLUSH WITH DIALYSIS; Start at 11:30 Social History doesn't smoke. used to drink. Physical Exam Vital Signs Vital Signs Date Time Temp Pulse Resp B/P (MAP) Pulse Ox O2 Delivery O2 Flow Rate FiO2 12/24/17 11:48 97 21 12/24/17 08:20 18 12/24/17 08:20 87 18 97 Room Air 12/24/17 08:00 97.6 17 117/75 (89) Physical Exam GENERAL: This is a well-nourished, well-developed patient, in no apparent distress. SKIN: No rashes, ecchymoses or lesions. Cool and dry. HEAD: Atraumatic. Normocephalic. No temporal or scalp tenderness. EYES: Pupils equal round and reactive. Extraocular motions intact. No scleral icterus. No injection or drainage. ENT: Nose without bleeding, purulent drainage or septal hematoma. Throat without erythema, tonsillar hypertrophy or exudate. Uvula midline. Airway patent. NECK: Trachea midline. No JVD or lymphadenopathy. Supple, nontender, no meningeal signs. CARDIOVASCULAR: Regular rate and rhythm without murmurs, gallops, or rubs. RESPIRATORY: Clear to auscultation. Breath sounds equal bilaterally. No wheezes , rales, or rhonchi. GASTROINTESTINAL: Abdomen soft, non-tender, distended. No hepato-splenomegaly, or palpable masses. No guarding. MUSCULOSKELETAL: Extremities without clubbing, cyanosis, or edema. No joint tenderness, effusion, or edema noted. No calf tenderness. Negative Homans sign bilaterally. NEUROLOGICAL: Awake and alert. Cranial nerves II through XII intact. Motor and sensory grossly within normal limits. Five out of 5 muscle strength in all muscle groups. Normal speech. Laboratory Laboratory Tests Test 12/24/17 08:20 12/24/17 10:45 White Blood Count 5.7 Red Blood Count 4.60 Hemoglobin 12.8 Hematocrit 39.0 Mean Corpuscular Volume 84.8 Mean Corpuscular Hemoglobin 27.8 Mean Corpuscular Hemoglobin Concent 32.8 Red Cell Distribution Width 17.8 Platelet Count 271 Mean Platelet Volume 7.0 Neutrophils (%) (Auto) 78.1 Lymphocytes (%) (Auto) 12.4 Monocytes (%) (Auto) 7.4 Eosinophils (%) (Auto) 1.2 Basophils (%) (Auto) 0.9 Neutrophils # (Auto) 4.5 Lymphocytes # (Auto) 0.7 Monocytes # (Auto) 0.4 Eosinophils # (Auto) 0.1 Basophils # (Auto) 0.0 CBC Comment DIFF FINAL Differential Comment Prothrombin Time 36.3 Prothromb Time International Ratio 3.6 Activated Partial Thromboplast Time 47.8 Blood Urea Nitrogen 51 Creatinine 8.83 Random Glucose 75 Total Protein 7.3 Albumin 2.9 Calcium Level 8.1 Phosphorus Level 4.6 Magnesium Level 2.3 Alkaline Phosphatase 227 Aspartate Amino Transf (AST/SGOT) 21 Alanine Aminotransferase (ALT/SGPT) 19 Total Bilirubin 0.8 Sodium Level 137 Potassium Level 4.8 Chloride Level 103 Carbon Dioxide Level 20.4 Anion Gap 14 Estimat Glomerular Filtration Rate 6 Stool C. difficile Toxin (PCR) NEGATIVE Stl C. difficile Toxin Epiderm 027 PRESUMPTIVE NEGATIVE Date/Time Source Procedure Growth Status 12/24/17 10:45 Stool Stool Pending Received Result Diagram: 12/24/17 0820 12/24/17 0820 Caprini VTE Risk Assessment Caprini VTE Risk Assessment: Mod/High Risk (score >= 2) Caprini Risk Assessment Model Point Value = 1 Point Value = 2 Point Value = 3 Point Value = 5 Age 41-60 Minor surgery BMI > 25 kg/m2 Swollen legs Varicose veins or History of unexplained or recurrent spontaneous Oral contraceptives or hormone replacement Sepsis (< 1 month) Serious lung disease, including pneumonia (< 1 month) Abnormal pulmonary function Acute myocardial infarction Congestive heart failure (< 1 month) History of inflammatory bowel disease Medical patient at bed rest Age 61-74 Arthroscopic surgery Major open surgery (> 45 min) Laparoscopic surgery (> 45 min) Malignancy Confined to bed (> 72 hours) Immobilizing plaster cast Central venous access Age >= 75 History of VTE Family history of VTE Factor V Leiden Prothrombin [id number] Lupus anticoagulant Anticardiolipin antibodies Elevated serum homocysteine Heparin-induced thrombocytopenia Other congenital or acquired thrombophilia Stroke (< 1 month) Elective arthroplasty Hip, pelvis, or leg fracture Acute spinal cord injury (< 1 month) Prophylaxis Regimen Total Risk Factor Score Risk Level Prophylaxis Regimen 0-1 Low Early ambulation 2 Moderate Order ONE of the following: *Sequential Compression Device (SCD) *Heparin 5000 units SQ BID 3-4 Higher Order ONE of the following medications: *Heparin 5000 units SQ TID *Enoxaparin/Lovenox 40 mg SQ daily (WT < 150 kg, CrCl > 30 mL/min) *Enoxaparin/Lovenox 30 mg SQ daily (WT < 150 kg, CrCl > 10-29 mL/min) *Enoxaparin/Lovenox 30 mg SQ BID (WT < 150 kg, CrCl > 30 mL/min) AND/OR *Sequential Compression Device (SCD) 5 or more Highest Order ONE of the following medications: *Heparin 5000 units SQ TID (Preferred with Epidurals) *Enoxaparin/Lovenox 40 mg SQ daily (WT < 150 kg, CrCl > 30 mL/min) *Enoxaparin/Lovenox 30 mg SQ daily (WT < 150 kg, CrCl > 10-29 mL/min) *Enoxaparin/Lovenox 30 mg SQ BID (WT < 150 kg, CrCl > 30 mL/min) AND *Sequential Compression Device (SCD) Assessment and Plan Assessment and Plan A/P - diarrhea/ abdominal distention check the stool for C-diff/ C/S- check abdominal US -generalized weakness- consult PT -ESRD- on HD ( //); consult nephrology- -atrial fibrillation; HR controlled- continue metoprolol and cardizem- will hold coumadin tonight ( INR 3.6)- consult pharmacy for coumadin dosing. -CAD/CVA/ hypertension; resume home meds -DVT prophylaxis; on Coumadin Discussed Condition With ER physician and the patient. Rene Frey MD Dec 24, 2017 12:32
[2017-12-24] MEDS ORDERED: ACETAMINOPHEN/HYDROcodone 325 MG/5 MG TAB PO PRN (12:45)
[2017-12-24 13:00] VITALS: BP 134/85; PULSE 94; RESP 18; O2SAT 97
--- NOTE | 2017-12-24 14:24 | RADRPT ---
EXAM DATE/TIME: 12/24/2017 12:43 [facility] COMPARISON: US ABDOMEN - GALLBLADDER, February 09, 2017, 14:23. INDICATIONS : Ascites MEDICAL HISTORY : AV fistula. A-fib. Renal failure. SURGICAL HISTORY : AV fistula. Pacemaker. Orthopedic surgery. ENCOUNTER: Initial ACUITY: 1 day PAIN SCORE: 3/10 LOCATION: Abdomen. AREA EVALUATED: Quadrants of the abdomen. FINDINGS: Imaging of the abdomen and pelvis was performed to evaluate for ascites for possible paracentesis. T here is a moderate to large amount of ascitic fluid present in all 4 quadrants. CONCLUSION: Moderate to large amount of ascitic fluid present. Ian Duran MD on December 24, 2017 at 14:21 Board Certified Radiologist. This report was verified electronically.
[2017-12-24] MEDS: SEVELAMER CARBONATE 800 MG TAB PO SCH (18:41)
[2017-12-24 19:26] VITALS: BP 119/83; PULSE 103; RESP 20; TEMP 98.6; O2SAT 96
[2017-12-24] MEDS: METOPROLOL TARTRATE 25 MG TAB PO SCH (21:02)
[2017-12-24] MEDS: CINACALCET HYDROCHLORIDE 30 MG TAB PO SCH (21:02)
[2017-12-24 23:18] VITALS: BP 142/95; PULSE 102; RESP 20; TEMP 97.9; O2SAT 96
[2017-12-25] VITALS (7 sets, daily range): BP systolic 117–136; BP diastolic 77–90; PULSE 66–111; RESP 16–20; TEMP 97.3–98.7; O2SAT 93–98
[2017-12-25 07:02] LABS: PROTHROMBIN TIME - PATIENT 29.9 SEC (9.8-11.6)
[2017-12-25] MEDS: VITAMIN B CMPLX/VITC/FOLIC AC CAP PO SCH (09:00)
[2017-12-25] MEDS: DILTIAZEM-CD 240 MG CAP ER PO SCH (09:37)
[2017-12-25] MEDS: SEVELAMER CARBONATE 800 MG TAB PO SCH ×3 (09:37→16:26)
[2017-12-25] MEDS: METOPROLOL TARTRATE 25 MG TAB PO SCH ×2 (09:37→21:42)
[2017-12-25] MEDS: CITALOPRAM HYDROBROMIDE 20 MG TAB PO SCH (09:37)
--- NOTE | 2017-12-25 12:34 | HHI.NPPN ---
Subjective History of Present Illness 61 y/o male patient with whom we follow in outpatient setting. He normally dialyzes MWF. His PMH consists of HTN, metabolic bone disorder, A fib, and CVA. He presented today with diarrhea and dark stool for 2 weeks. Additional Remarks Patient is alert, still has diarrhea, and mild abd. discomfort. Objective Data Data Vital Signs Date Time Temp Pulse Resp B/P (MAP) Pulse Ox O2 Delivery O2 Flow Rate FiO2 12/25/17 07:44 97.7 107 18 134/90 (105) 93 12/25/17 03:18 98.4 98 16 136/78 (97) 95 12/24/17 23:18 97.9 102 20 142/95 (111) 96 12/24/17 19:26 98.6 103 20 119/83 (95) 96 12/24/17 13:00 94 18 134/85 (101) 97 Room Air -: 12/24/17 0820 12/24/17 0820 Physical Exam General Appearance: No Acute Distress, Comfortable Eyes Eye Exam: Pupils Equal Throat Throat Exam: Oral Mucosa [place] & Moist Neck Neck Exam: Neck Supple Pulmonary Resp Exam: Breath Sounds Equal, No Distress, Rhonchi, Decreased Bases Cardiology CV Exam: Regular, Normal Sinus Rhythm Gastrointestinal/Abdomen GI Exam: Soft, Non-Tender, Bowel Sounds Present, Distended Extremeties Extremities Exam: Trace Edema Neurologic Neuro Exam: Alert, Awake Psychiatric Psych Exam: Appropriate Responses Assessment/Plan Problem List: (1) ESRD on hemodialysis ICD Codes: N18.6 - End-stage renal disease on hemodialysis; Z99.2 - Dependence on renal dialysis Status: Chronic Plan: HD MWF Has patent AVF for treatment Avoid IVF administration, gadolinium is contraindicated Obtain labs intermittently Epogen not required HD done yesterday. Stool C. difficile was negative. (2) Abdominal distension ICD Codes: R14.0 - Abdominal distension (gaseous) Plan: With diarrhea C diff studies sent Obtain abd US to evaluate for ascites Management per hospitalist (3) Hypertension ICD Codes: I10 - Hypertension Status: Chronic Plan: Resume home medications (4) Metabolic bone disease ICD Codes: M89.8X9 - Metabolic bone disease Status: Acute Plan: Resume Renvela with meals if he is not NPO Kiah Cueto MD Dec 25, 2017 12:34
--- NOTE | 2017-12-25 14:46 | PD.CONS ---
HPI History of Present Illness This is a 62 year old male from presented to the emergency room on 12/24/17 with diarrhea onset of symptoms approximately 3 weeks ago. He initially denied any abdominal pain but now states that he feels pressure and bloating. Patient denies any rectal bleeding or hematemesis, no nausea, no vomiting, no fever, no chills,. According to the record patient was on antibiotics for a recent cold. Patient is end-stage renal disease and has hemodialysis on Wednesday. Noted in the record his last hemodialysis was Wednesday 3 days ago. Abdomen is taut, moderate distention, bowel sounds are active and denies any acute abdominal pain. Patient is a poor historian probable secondary to dementia, CVA, anxiety and depression. Stool studies showed negative C. difficile, no enteric past with pathogens. Patient denies any history of EGD or colonoscopy or any liver workup. Patient does drink 1 ounce of alcohol per month, but does note long-term alcohol dependence. Patient denies any dysphagia and states he swallows thin liquids without cough. (Nicole Kaur) PFSH Past Medical History Per the record Atrial fibrillation Bilateral hip arthritis Anxiety Depression Prior myocardial infarction Congestive heart failure, unknown type CVA Dementia End-stage renal disease with intermittent hemodialysis Wednesday/Wednesday/Wednesday Past Surgical History Past Surgical History Left forearm AV fistula Right shoulder surgery Right upper chest Vas-Cath (iNcole Kaur) Coded Allergies: bee venom protein (honey bee) (Unverified Allergy, Severe, Anaphylaxis, 10/05/17) *MDRO Multi-Drug Resistant Organism (Verified Adverse Reaction, Unknown, ) MRSA (leg/groin abscess) - 2006 *MRSA PCR negative 11/03/15 & 11/05/15. Pt does not require isolation for hx of MDRO prior to 11/05/15.* Uncoded Allergies: Contac cold medicine (Allergy, Severe, Hives, 01/08/17) allergy Medications Unknown history Dialysis shunt Family History No known colon cancer family Social History doesn't smoke. Allow to drink 1 ounce of alcohol per month, long-term EtOH dependence in the past Lives in [facility] (Nicole Kaur) Review of Systems Gastrointestinal: COMPLAINS OF: Abdominal pain, Diarrhea (Nicole Kaur ) GI Exam Vitals I&O Vital Signs Date Time Temp Pulse Resp B/P (MAP) Pulse Ox O2 Delivery O2 Flow Rate FiO2 12/25/17 13:05 98.7 111 18 131/84 (100) 93 12/25/17 07:44 97.7 107 18 134/90 (105) 93 12/25/17 03:18 98.4 98 16 136/78 (97) 95 12/24/17 23:18 97.9 102 20 142/95 (111) 96 12/24/17 19:26 98.6 103 20 119/83 (95) 96 I/O 12/24/17 12/24/17 12/24/17 12/25/17 12/25/17 12/25/17 07:00 15:00 23:00 07:00 15:00 23:00 Output Total 1000 ml Balance -1000 ml Hemodialysis 1000 ml Imaging Last Impressions Chest X-Ray 12/24/17 0804 Signed Impressions: Service Date/Time: Sunday, December 24, 2017 08:22 - CONCLUSION: Cardiomegaly without evidence of significant congestion or acute air space disease there Nadir Andrews MD Abdomen Ultrasound 12/24/17 0000 Signed Impressions: Service Date/Time: Sunday, December 24, 2017 12:43 - CONCLUSION: Moderate to large amount of ascitic fluid present. Ian Duran MD Laboratory Test 12/25/17 06:10 Prothrombin Time 29.9 SEC Prothromb Time International Ratio 3.0 RATIO Date/Time Source Procedure Growth Status 12/24/17 10:45 Stool Stool - Final NO ENTERIC PATHOGENS DETECTED BY PCR... Complete Physical Examination HEENT: Pupils round and reactive to light; normocephalic; atraumatic; no jaundice. Throat is clear. NECK: Neck is supple, no JVD, no lymphadenopathy. CHEST: Chest is clear to auscultation and percussion. CARDIAC: Regular rate and rhythm with no murmur gallop or rubs. ABDOMEN: Soft, nondistended, nontender; no hepatosplenomegaly; bowel sounds are present in all four quadrants. EXTREMITIES: No clubbing, cyanosis, or edema. SKIN: Normal; no rash; no jaundice. LIBRARIAN HELPER: No focal deficits; alert and oriented times three. (Nicole Kaur) Assessment and Plan Assessment: (1) Anemia ICD Codes: D64.9 - Anemia, unspecified Status: Acute (2) Diarrhea ICD Codes: R19.7 - Diarrhea, unspecified Plan Patient presented with diarrhea onset 3 weeks, some mild bloating and abdominal pain that was initiated around the same time. denies any previous EGD , colonoscopy, or liver disease. does note long-term EtOH usage and is still a lab to drink 1 ounce of alcohol per month. No previous colonoscopy, endoscopy, or liver workup Diarrhea, stool studies showed negative C. difficile no enteric pathogens Abdominal x-ray shows moderate to large amount of ascites.. This could be related to his renal disease, undiagnosed liver disease and/or alcohol, cardiomegaly. Plan Continue to hold Coumadin, if INR remains greater than 2, patient may need vitamin K on 12/26/17 Paracentesis, IR, Check abdominal fluids C&S, Cytology, Cell Count, Albumin Plan consent EGD/Colonoscopy Wednesday, Go lytely, start at 1200 on 12/26/17 Full liquid diet today Clear liquids starting in the morning with breakfast Nothing by mouth at midnight Wednesday night on 12/27/17 CT scan with oral contrast only Liver workup labs, CMP, amylase, lipase, CA 19, AFP, alpha 1 antitrypsin, mitochondrial total auto labs, smooth muscle auto total labs, none, NIKOLAI screen, hepatitis profile, IgG IgA Patient was seen per myself and Dr. Patel, note was written on his behalf (Nicole Kaur) Physician Comments Patient presenting with diarrhea, abdominal pain, known history of end-stage renal disease on hemodialysis, history of atrial fibrillation on anticoagulation , and now there appears to be new onset ascites Patient seen and examined Agree with above Continue with current supportive care Monitor labs We will obtain diagnostic/therapeutic paracentesis Patient will need an EGD and colonoscopy (Clement Patel MD) Nicole Kaur Dec 25, 2017 14:46 Clement Patel MD Dec 25, 2017 15:36
[2017-12-25] MEDS ORDERED: DIATRIZOATE MEGLUM/DIATRIZOATE SOD 9 ML CUP PO ONE (15:20)
[2017-12-25] MEDS: CINACALCET HYDROCHLORIDE 30 MG TAB PO SCH (16:26)
--- NOTE | 2017-12-25 19:40 | HHI.PR ---
Subjective Remarks Patient seen this morning. Denies any chest pain or shortness of breath. Reports bowel distention continues. Objective Vital Signs Date Time Temp Pulse Resp B/P (MAP) Pulse Ox O2 Delivery O2 Flow Rate FiO2 12/25/17 17:27 98.3 66 20 131/77 (95) 98 12/25/17 13:05 98.7 111 18 131/84 (100) 93 12/25/17 07:44 97.7 107 18 134/90 (105) 93 12/25/17 03:18 98.4 98 16 136/78 (97) 95 12/24/17 23:18 97.9 102 20 142/95 (111) 96 I/O 12/24/17 12/24/17 12/24/17 12/25/17 12/25/17 12/25/17 07:00 15:00 23:00 07:00 15:00 23:00 Output Total 1000 ml Balance -1000 ml Hemodialysis 1000 ml Result Diagram: 12/24/1781912/24/1720 Objective Remarks GENERAL: patient sitting up in bed. Appears comfortable. SKIN: Warm and dry. HEAD: Normocephalic. EYES: No scleral icterus. No injection or drainage. NECK: Supple, trachea midline. No JVD or lymphadenopathy. CARDIOVASCULAR: Regular rate and rhythm without murmurs, gallops, or rubs. RESPIRATORY: Breath sounds equal bilaterally. No accessory muscle use. GASTROINTESTINAL: Abdomen distended. Nontender. MUSCULOSKELETAL: No cyanosis, or edema. BACK: Nontender without obvious deformity. No CVA tenderness. A/P Assessment and Plan // diarrhea/ abdominal distention check the stool for C-diff/ C/S- check abdominal US = Well ascites. Unable to do paracentesis secondary to elevated INR. Will hold warfarin. GI consulted. CT abdomen pending. Likely EGD/colonoscopy on Wednesday. BNP pending. //generalized weakness- consult PT //ESRD- on HD ( M/W/F); consult nephrology- = Appreciate nephrology assistance for dialysis. //atrial fibrillation; HR controlled- continue metoprolol and cardizem- will hold coumadin tonight ( INR 3.6)- consult pharmacy for coumadin dosing. = Continue to hold warfarin. INR 3.0. //CAD/CVA/ hypertension; resume home meds //DVT prophylaxis; holding Coumadin due to planned procedures Discharge Planning plan EGD/colonoscopy on Wednesday. Last paracentesis. Likely go home when cleared by Rolando Reid MD Dec 25, 2017 19:40
[2017-12-25 19:51] LABS: ALBUMIN 2.6 GM/DL (3.4-5.0); ALKALINE PHOSPHATASE 206 U/L (45-117); ALT (GPT) 19 U/L (12-78); AST (GOT) 18 U/L (15-37); BICARBONATE 28.7 MEQ/L (21.0-32.0); BLOOD UREA NITROGEN 42 MG/DL (7-18); CALCIUM 7.9 MG/DL (8.5-10.1); CHLORIDE 99 MEQ/L (98-107); CREATININE 7.56 MG/DL (0.60-1.30); GLOMERULAR FILTRATION RATE 7 ML/MIN (>89); GLUCOSE,RANDOM 84 MG/DL (74-106); SODIUM (NA) 137 MEQ/L (136-145); TOTAL BILIRUBIN ADULT 0.7 MG/DL (0.2-1.0); TOTAL PROTEIN 6.7 GM/DL (6.4-8.2)
[2017-12-25 20:27] LABS: CA 19-9 12.9 U/ML (0.0-35.0)
[2017-12-25] MEDS: predniSONE 50 MG TAB PO SCH (23:04)
[2017-12-26 03:48] VITALS: BP 130/87; PULSE 89; RESP 20; TEMP 97.3; O2SAT 97
[2017-12-26] MEDS: predniSONE 50 MG TAB PO SCH ×2 (05:48→13:26)
[2017-12-26 08:08] VITALS: BP 121/79; PULSE 86; RESP 20; TEMP 97.9; O2SAT 94
[2017-12-26] MEDS: VITAMIN B CMPLX/VITC/FOLIC AC CAP PO SCH (09:00)
[2017-12-26] MEDS: DILTIAZEM-CD 240 MG CAP ER PO SCH (09:32)
[2017-12-26] MEDS: SEVELAMER CARBONATE 800 MG TAB PO SCH ×3 (09:32→17:11)
[2017-12-26] MEDS: METOPROLOL TARTRATE 25 MG TAB PO SCH ×2 (09:32→23:09)
[2017-12-26] MEDS: CITALOPRAM HYDROBROMIDE 20 MG TAB PO SCH (09:32)
[2017-12-26] MEDS ORDERED: diphenhydrAMINE HCL 50 MG CAP PO SCH (11:00)
[2017-12-26] MEDS ORDERED: PEG (High)/E-LYTE SOLN 4000 ML BTL PO ONE (12:00)
--- NOTE | 2017-12-26 12:25 | EKG ---
Date Performed: 12/24/2017 Time Performed: 08:35:13 PTAGE: 62 years EKG: Atrial fibrillation with controlled ventricular response PROLONGED QT INTERVAL ABNORMAL ECG Since PREVIOUS TRACING , no significant change noted PREVIOUS TRACIN07/15/2017 22.41 DOCTOR: Dc Small Interpretating Date/Time 12/26/2017 12:21:45
[2017-12-26] MEDS ORDERED: predniSONE 50 MG TAB PO ONE (13:00)
[2017-12-26 14:21] VITALS: BP 129/79; PULSE 86; RESP 20; TEMP 98.4; O2SAT 98
[2017-12-26] MEDS ORDERED: IOHEXOL 350 MG/ML 10 ML VIAL (for RAD DIAG) IVCONTRAST ONE (15:11)
[2017-12-26] MEDS ORDERED: FUROSEMIDE 40 MG/4 ML VIAL IV PUSH ONE (15:45)
--- NOTE | 2017-12-26 15:51 | RADRPT ---
EXAM DATE/TIME: 12/26/2017 15:03 [facility] COMPARISON: US ABDOMEN - LOWER LIMITED, December 24, 2017, 12:43. INDICATIONS : Weakness, cirrhosis. IV CONTRAST: 70 cc Omnipaque 350 (iohexol) IV ORAL CONTRAST: Prescribed oral contrast ingested. RADIATION DOSE: 13.74 CTDIvol (mGy) MEDICAL HISTORY : Stroke. Hypertension. renal failure SURGICAL HISTORY : bilateral hip surgery ENCOUNTER: Initial ACUITY: 1 day PAIN SCALE: 3/10 LOCATION: Bilateral abdomen TECHNIQUE: Volumetric scanning of the abdomen and pelvis was performed. Using automated exposure control and ad justment of the mA and/or kV according to patient size, radiation dose was kept as low as reasonably achievable to obtain optimal diagnostic quality images. DICOM format image data is available electro nically for review and comparison. FINDINGS: LOWER LUNGS: Groundglass opacity is identified throughout both lung bases. Heart is moderately to markedly enlarge d. LIVER: No focal lesions are noted. The portal vein is poorly opacified. Multiple calcified gallstones are no albert. Large amount of fluid is identified throughout the axial cavity. SPLEEN: Normal size without lesion. PANCREAS: Within normal limits. KIDNEYS: The kidneys demonstrate marked cortical thinning and contain multiple cysts bilaterally. There is no evidence of hydronephrosis. Multiple small calculi present throughout both kidneys. ADRENAL GLANDS: Within normal limits. VASCULAR: There is no aortic aneurysm. BOWEL/MESENTERY: The stomach, small bowel, and colon demonstrate no acute abnormality. Large amount of ascites is note d. There is no evidence of free air. ABDOMINAL WALL: Within normal limits. RETROPERITONEUM: There is no lymphadenopathy. BLADDER: Nondistended REPRODUCTIVE: Within normal limits. INGUINAL: Left-sided inguinal hernia containing a small knuckle of sigmoid colon is noted. MUSCULOSKELETAL: No acute abnormality. CONCLUSION: 1. Large amount of ascites 2. Cholelithiasis 3. Poor opacification of the portal vein 4. Cardiomegaly 5. Left inguinal hernia containing a loop of sigmoid colon. 6. Severe bilateral renal disease with cortical thinning and multiple cysts. Nadir Andrews MD on December 26, 2017 at 15:43 Board Certified Radiologist. This report was verified electronically.
--- NOTE | 2017-12-26 16:35 | HHI.GIFU ---
Subjective Remarks Pt resting in bed. asking about his CT. difficult to understand his speech. (Nica Kuhn) Objective Vitals I&O Vital Signs Date Time Temp Pulse Resp B/P (MAP) Pulse Ox O2 Delivery O2 Flow Rate FiO2 12/26/17 14:21 98.4 86 20 129/79 (96) 98 12/26/17 08:08 97.9 86 20 121/79 (93) 94 12/26/17 03:48 97.3 89 20 130/87 (101) 97 12/25/17 23:39 97.3 90 20 125/78 (94) 97 12/25/17 20:23 98.4 88 20 117/83 (94) 95 12/25/17 20:21 95 12/25/17 17:27 98.3 66 20 131/77 (95) 98 I/O 12/25/17 12/25/17 12/25/17 12/26/17 12/26/17 12/26/17 07:00 15:00 23:00 07:00 15:00 23:00 # Bowel Movements 1 Laboratory Laboratory Tests Test 12/25/17 18:12 12/25/17 18:22 Blood Urea Nitrogen 42 Creatinine 7.56 Random Glucose 84 Total Protein 6.7 Albumin 2.6 Calcium Level 7.9 Alkaline Phosphatase 206 Aspartate Amino Transf (AST/SGOT) 18 Alanine Aminotransferase (ALT/SGPT) 19 Total Bilirubin 0.7 Sodium Level 137 Potassium Level 4.2 Chloride Level 99 Carbon Dioxide Level 28.7 Anion Gap 9 Estimat Glomerular Filtration Rate 7 B-Type Natriuretic Peptide 2897 Amylase Level 75 Lipase 242 Tumor Marker Alpha Fetoprotein 1.3 CA 19-9 Antigen 12.9 Hepatitis A IgM Antibody NONREACTIVE Hepatitis B Surface Antigen NONREACTIVE Hepatitis B Core IgM Antibody NONREACTIVE Hepatitis C IgG Antibody NONREACTIVE Date/Time Source Procedure Growth Status 12/24/17 10:45 Stool Stool - Final NO ENTERIC PATHOGENS DETECTED BY PCR... Complete Imaging Last Impressions Abdomen/Pelvis CT 12/25/17 0000 Signed Impressions: Service Date/Time: Tuesday, December 26, 2017 15:03 - CONCLUSION: 1. Large amount of ascites 2. Cholelithiasis 3. Poor opacification of the portal vein 4. Cardiomegaly 5. Left inguinal hernia containing a loop of sigmoid colon. 6. Severe bilateral renal disease with cortical thinning and multiple cysts. Nadir Andrews MD Chest X-Ray 12/24/17 0804 Signed Impressions: Service Date/Time: Sunday, December 24, 2017 08:22 - CONCLUSION: Cardiomegaly without evidence of significant congestion or acute air space disease there Nadir Andrews MD Abdomen Ultrasound 12/24/17 0000 Signed Impressions: Service Date/Time: Sunday, December 24, 2017 12:43 - CONCLUSION: Moderate to large amount of ascitic fluid present. Ian Duran MD Physical Exam HEENT: PERRL normocephalic; atraumatic; no jaundice. CHEST: coarse, wheezes CARDIAC: RRR ABDOMEN: semifirm, distended, mild diffuse TTP BS + EXTREMITIES: No clubbing, cyanosis, or edema. SKIN: Normal; no rash; no jaundice. FLATWORK PRESSER: alert (Nica Kuhn) Assessment and Plan Assessment: (1) Anemia ICD Codes: D64.9 - Anemia, unspecified Status: Acute (2) Diarrhea ICD Codes: R19.7 - Diarrhea, unspecified Plan Patient presented with diarrhea onset 3 weeks, some mild bloating and abdominal pain that was initiated around the same time. denies any previous EGD , colonoscopy, or liver disease. does note long-term EtOH usage and is still a lab to drink 1 ounce of alcohol per month. No previous colonoscopy, endoscopy, or liver workup Diarrhea, stool studies showed negative C. difficile no enteric pathogens Abdominal x-ray shows moderate to large amount of ascites.. This could be related to his renal disease, undiagnosed liver disease and/or alcohol, cardiomegaly. 12/26/[address] showing large ascites, gallstones, poor opacification portal vein. no paracentesis today, INR too high. will give K. liver w/u is pending. hep panel negative. Plan - Continue to hold Coumadin - vit K - monitor coags -Paracentesis when INR >1.5 -EGD/Colonoscopy Wednesday, -Go lytely -clears today -NPO after midnight -await rest of liver w/u pt seen by myself and Dr Patel and this note is on his behalf (Nica Kuhn) Physician Comments Patient seen and examined Agree with above Continue with current supportive care Monitor labs EGD colonoscopy tomorrow Paracentesis when INR improved (Clement Patel MD) Nica Kuhn Dec 26, 2017 16:35 Clement Patel MD Dec 26, 2017 19:13
[2017-12-26 17:06] VITALS: BP 126/79; PULSE 79; RESP 18; TEMP 98.4; O2SAT 95
[2017-12-26] MEDS: CINACALCET HYDROCHLORIDE 30 MG TAB PO SCH (17:10)
--- NOTE | 2017-12-26 17:39 | HHI.PR ---
Subjective Remarks Patient seen this afternoon around 3 PM. Says he is feeling all right. Denies any chest pain or shortness breath. He says abdomen is slightly less distended today. Objective Vital Signs Date Time Temp Pulse Resp B/P (MAP) Pulse Ox O2 Delivery O2 Flow Rate FiO2 12/26/17 17:06 98.4 79 18 126/79 (95) 95 12/26/17 14:21 98.4 86 20 129/79 (96) 98 12/26/17 08:08 97.9 86 20 121/79 (93) 94 12/26/17 03:48 97.3 89 20 130/87 (101) 97 12/25/17 23:39 97.3 90 20 125/78 (94) 97 12/25/17 20:23 98.4 88 20 117/83 (94) 95 12/25/17 20:21 95 I/O 12/25/17 12/25/17 12/25/17 12/26/17 12/26/17 12/26/17 07:00 15:00 23:00 07:00 15:00 23:00 # Bowel Movements 1 Result Diagram: 12/24/17 0820 12/25/17 1812 Objective Remarks GENERAL: patient sitting up in bed. Appears comfortable.no appreciable change on exam. SKIN: Warm and dry. HEAD: Normocephalic. EYES: No scleral icterus. No injection or drainage. NECK: Supple, trachea midline. No JVD or lymphadenopathy. CARDIOVASCULAR: Regular rate and rhythm without murmurs, gallops, or rubs. RESPIRATORY: Breath sounds equal bilaterally. No accessory muscle use. GASTROINTESTINAL: Abdomen still distended. Nontender.positive bowel sounds. MUSCULOSKELETAL: No cyanosis, or edema. BACK: Nontender without obvious deformity. No CVA tenderness. A/P Assessment and Plan // diarrhea/ abdominal distention check the stool for C-diff/ C/S- check abdominal US = Well ascites. Unable to do paracentesis secondary to elevated INR. Will hold warfarin. GI consulted. CT abdomen pending. Likely EGD/colonoscopy on Wednesday. BNP pending. = BNP elevated, obviously in part secondary to ESRD. Likely abdominal distention is secondary to CHF. Echocardiogram pending. //generalized weakness- consult PT //ESRD- on HD ( M/W/F); consult nephrology- = Appreciate nephrology assistance for dialysis. //atrial fibrillation; HR controlled- continue metoprolol and cardizem- will hold coumadin tonight ( INR 3.6)- consult pharmacy for coumadin dosing. = Continue to hold warfarin. INR 3.0. = 4/1. INR rechecked today. Would like to avoid giving FFP if possible. If INR is over 2.0 today, will order 2.5 mg of vitamin K //CAD/CVA/ hypertension; resume home meds //DVT prophylaxis; holding Coumadin due to planned procedures Discharge Planning plan EGD/colonoscopy on Wednesday. Last paracentesis. Likely go home when cleared by Rolando Reid MD Dec 26, 2017 17:39
[2017-12-26 18:25] LABS: PROTHROMBIN TIME - PATIENT 40.6 SEC (9.8-11.6)
--- NOTE | 2017-12-26 18:40 | HHI.NPPN ---
Subjective History of Present Illness 61 y/o male patient with whom we follow in outpatient setting. He normally dialyzes MWF. His PMH consists of HTN, metabolic bone disorder, A fib, and CVA. He presented today with diarrhea and dark stool for 2 weeks. Additional Remarks Patient is alert, still has diarrhea but improving, want to eat more. Objective Data Data 12/26/17 12/27/17 19:00 07:00 # Bowel Movements 1 Vital Signs Date Time Temp Pulse Resp B/P (MAP) Pulse Ox O2 Delivery O2 Flow Rate FiO2 12/26/17 17:06 98.4 79 18 126/79 (95) 95 12/26/17 14:21 98.4 86 20 129/79 (96) 98 12/26/17 08:08 97.9 86 20 121/79 (93) 94 12/26/17 03:48 97.3 89 20 130/87 (101) 97 12/25/17 23:39 97.3 90 20 125/78 (94) 97 12/25/17 20:23 98.4 88 20 117/83 (94) 95 12/25/17 20:21 95 -: 12/24/17 0820 12/25/17 1812 Physical Exam General Appearance: No Acute Distress, Comfortable Eyes Eye Exam: Pupils Equal Throat Throat Exam: Oral Mucosa [place] & Moist Neck Neck Exam: Neck Supple Pulmonary Resp Exam: Breath Sounds Equal, No Distress, Rhonchi, Decreased Bases Cardiology CV Exam: Regular, Normal Sinus Rhythm Gastrointestinal/Abdomen GI Exam: Soft, Non-Tender, Bowel Sounds Present, Distended Extremeties Extremities Exam: Trace Edema Neurologic Neuro Exam: Alert, Awake Psychiatric Psych Exam: Appropriate Responses Assessment/Plan Problem List: (1) ESRD on hemodialysis ICD Codes: N18.6 - End-stage renal disease on hemodialysis; Z99.2 - Dependence on renal dialysis Status: Chronic Plan: HD MWF Has patent AVF for treatment Avoid IVF administration, gadolinium is contraindicated Obtain labs intermittently Epogen not required HD done Wednesday. Stool C. difficile was negative. For EGD/Colonoscopy in AM, GI following. On Liquid diet. Dr. Chisholm will follow from AM. (2) Abdominal distension ICD Codes: R14.0 - Abdominal distension (gaseous) Plan: With diarrhea C diff studies sent Obtain [facility] US to evaluate for ascites Management per hospitalist (3) Hypertension ICD Codes: I10 - Hypertension Status: Chronic Plan: Resume home medications (4) Metabolic bone disease ICD Codes: M89.8X9 - Metabolic bone disease Status: Acute Plan: Resume Renvela with meals if he is not NPO Kiah Cueto MD Dec 26, 2017 18:40
[2017-12-26 20:00] VITALS: BP 139/94; PULSE 91; RESP 22; TEMP 97; O2SAT 94
[2017-12-26] MEDS ORDERED: PHYTONADIONE 5 MG TAB PO ONE (20:00)
[2017-12-26] MEDS ORDERED: PHYTONADIONE 5 MG/SWFI 5 ML ORAL SYR PO ONE (22:45)
[2017-12-27] VITALS (7 sets, daily range): BP systolic 98–145; BP diastolic 64–97; PULSE 83–113; RESP 17–20; TEMP 97.7–98.3; O2SAT 94–98
[2017-12-27] MEDS: SEVELAMER CARBONATE 800 MG TAB PO SCH ×3 (08:00→20:39)
[2017-12-27] MEDS: VITAMIN B CMPLX/VITC/FOLIC AC CAP PO SCH (09:00)
[2017-12-27] MEDS: METOPROLOL TARTRATE 25 MG TAB PO SCH (09:00)
--- NOTE | 2017-12-27 10:11 | HHI.NPPN ---
Subjective General Problems: Anemia Renal Failure: Chronic Interval History He is awake, seen during dialysis. Received FFP overnight in anticipation of paracentesis and EGD/colonoscopy today. He is hungry, NPO. (Chinyere Rodriguez) Objective Data Data Vital Signs Date Time Temp Pulse Resp B/P (MAP) Pulse Ox O2 Delivery O2 Flow Rate FiO2 12/27/17 08:06 98.1 92 20 127/84 (98) 95 12/27/17 06:11 97.8 93 18 107/65 96 12/27/17 05:07 98.1 88 18 136/96 95 12/27/17 04:30 98.3 87 18 123/79 98 12/27/17 04:00 98.0 96 20 145/82 (103) 94 12/27/17 00:00 97.7 83 20 98/64 (75) 98 12/26/17 20:00 97.0 91 22 139/94 (109) 94 12/26/17 17:06 98.4 79 18 126/79 (95) 95 12/26/17 14:21 98.4 86 20 129/79 (96) 98 (Chinyere Rodriguez) -: 12/24/17 0820 12/25/17 1812 Imaging Last 72 hours Impressions Abdomen/Pelvis CT 12/25/17 0000 Signed Impressions: Service Date/Time: Tuesday, December 26, 2017 15:03 - CONCLUSION: 1. Large amount of ascites 2. Cholelithiasis 3. Poor opacification of the portal vein 4. Cardiomegaly 5. Left inguinal hernia containing a loop of sigmoid colon. 6. Severe bilateral renal disease with cortical thinning and multiple cysts. Nadir Andrews MD (Chinyere Rodriguez) Physical Exam General Appearance: No Acute Distress, Comfortable Appearance Remarks Disheveled (Chinyere Rodriguez) Eyes Eye Exam: Pupils Equal (Chinyere Rodriguez) Throat Throat Exam: Oral Mucosa [place] & Moist (Chinyere Rodriguez) Neck Neck Exam: Neck Supple (Chinyere Rodriguez) Pulmonary Resp Exam: Breath Sounds Equal, No Distress, Rhonchi, Decreased Bases (Chinyere Rodriguez) Cardiology CV Exam: Regular, Normal Sinus Rhythm (Chinyere Rodriguez) Gastrointestinal/Abdomen GI Exam: Non-Tender, Bowel Sounds Present, Distended GI Remarks firm, ascites is present (Chinyere Rodriguez) Musculoskeletal MS Exam: Normal Gait, Good Strength (Chinyere Rodriguez) Integumentary Skin Exam: Warm, Dry, Intact (Chinyere Rodriguez) Extremeties Extremities Exam: No Edema, Pedal Pulses Palpable (Chinyere Rodriguez) Neurologic Neuro Exam: Alert, Awake, Oriented, Speech Clear, Moving All Extremities (Chinyere Rodriguez) Psychiatric Psych Exam: Appropriate Responses (Chinyere Rodriguez) Assessment/Plan Discussed Condition With: Patient Assessment Summary: Anemia of CKD, End Stage Renal Disease Problem List: (1) ESRD on hemodialysis ICD Codes: N18.6 - End-stage renal disease on hemodialysis; Z99.2 - Dependence on renal dialysis Status: Chronic Plan: Seen during dialysis today on a 2K, 350 BFR, ogal 2L Continue dialysis support on MWF Has patent AVF for treatment Avoid IVF administration, gadolinium is contraindicated Obtain labs intermittently Epogen not required High protein diet when no longer NPO (2) Abdominal distension ICD Codes: R14.0 - Abdominal distension (gaseous) Plan: With diarrhea C diff studies neg GI is following Abd US and CT show ascites, pending paracentesis; meeds INR normalized prior (3) Hypertension ICD Codes: I10 - Hypertension Status: Chronic Plan: Monitor BP, home medications were continued (4) Metabolic bone disease ICD Codes: M89.8X9 - Metabolic bone disease Status: Acute Plan: On Renvela with meals when no longer NPO (Chinyere Rodriguez) Plan patient was seen and examined. Seen during dialysis. Paracentesis is planned. EGD and colonoscopy are also planned. (Varun Chisholm MD) Chinyere Rodriguez Dec 27, 2017 10:11 Varun Chisholm MD Dec 27, 2017 10:47
[2017-12-27] MEDS ORDERED: PROPOFOL 200 MG/20 ML AMP IV ONE (12:00)
[2017-12-27] MEDS ORDERED: LIDOCAINE HCL 1% PF 5 ML SYRINGE OTHER ONE (12:00)
[2017-12-27] MEDS ORDERED: SODIUM CHLORIDE 0.9% 10 ML VIAL IV ONE (12:00)
[2017-12-27 13:44] LABS: INTERNATIONAL NORMALIZED RATIO 1.8 RATIO; PROTHROMBIN TIME - PATIENT 18.1 SEC (9.8-11.6)
[2017-12-27] MEDS ORDERED: KETAMINE HCL 500 MG/5 ML VIAL ONE (14:00)
--- NOTE | 2017-12-27 14:33 | GIPROC ---
[facility] [address] [facility]. [facility], [address] EGD PROCEDURE REPORT EXAM DATE: 12/27/2017 PATIENT NAME: Zak Looney MR #: [id number] BIRTHDATE: 1955 ATTENDING: River Leblanc MD ORDER #: [id number] TUBER MACHINE OPERATOR: Yandel Ferrari and Rachael Crum STATUS: inpatient INDICATIONS: The patient is a 62 yr old male here for an EGD due to abdominal pain and iron deficiency anemia PROCEDURE PERFORMED: EGD w/ biopsy MEDICATIONS: None and Per Anesthesia. TOPICAL ANESTHETIC: Cetacaine [place] CONSENT: The patient understands the risks and benefits of the procedure and understands that these risks include, but are not limited to: sedation, allergic reaction, infection, perforation and/or bleeding. Alternative means of evaluation and treatment include, among others: physical exam, x-rays, and/or surgical intervention. The patient elects to proceed with this endoscopic procedure. medical equipment was checked for proper function. Hand hygiene and appropriate measures for infection prevention was taken. After the risks, benefits and alternatives of the procedure were thoroughly explained, Informed consent was verified, confirmed and timeout was successfully executed by the treatment team. The patient was anesthetized with topical anesthesia and the [id number] (Pedi C) endoscope was introduced through the mouth and advanced to the second portion of the duodenum. Retroflexed views revealed no abnormalities The gastroscope was then slowly withdrawn and removed. ESOPHAGUS: There was LA Class B esophagitis noted. STOMACH: There was erythematous severe gastritis with heme present in the gastric antrum. DUODENUM: Multiple non-bleeding, shallow and clean-based ulcers ranging between 3-5 mm in size were found in the 1st part of the duodenum. Biopsies were taken at edge of the ulcers. ADVERSE EVENTS: There were no complications. IMPRESSIONS: 1. There was LA Class B esophagitis noted 2. There was erythematous gastritis in the gastric antrum 3. Multiple ulcers ranging between 3-5 mm in size were found in the 1st part of the duodenum; biopsies were taken 4. Retroflexed views revealed no abnormalities 5. Rectal exam performed, revealed solid stools. Colonoscopy cancelled. RECOMMENDATIONS: 1. Await biopsy results. Biopsy results will not be ready for 7-10 days. If you don't hear from us in two weeks, call our office for biopsy results. 2. Anti-reflux regimen 3. Continue PPI 4. Avoid NSAIDS 5. Colonoscopy PATIENT CONDITION: stable DISPOSITION: Inpatient REPEAT EXAM: Return 2 months EGD pending biopsy results River Leblanc MD eSigned: River Leblanc MD 12/27/2017 2:32 PM cc: PATIENT NAME: Zak Looney MR#: [id number]
[2017-12-27] MEDS: PEG (High)/E-LYTE SOLN 4000 ML BTL PO ONE ×2 (15:00→20:35)
--- NOTE | 2017-12-27 19:46 | HHI.PR ---
Subjective Remarks Patient says he is feeling all right. Still with abdominal distention. Denies any nausea or vomiting. Would like to eat real food. Objective Vital Signs Date Time Temp Pulse Resp B/P (MAP) Pulse Ox O2 Delivery O2 Flow Rate FiO2 12/27/17 14:44 97.3 91 22 112/77 (89) 95 12/27/17 12:16 97 22 127/86 (100) 95 12/27/17 12:02 94 12/27/17 08:06 98.1 92 20 127/84 (98) 95 12/27/17 06:11 97.8 93 18 107/65 96 12/27/17 05:07 98.1 88 18 136/96 95 12/27/17 04:30 98.3 87 18 123/79 98 12/27/17 04:00 98.0 96 20 145/82 (103) 94 12/27/17 00:00 97.7 83 20 98/64 (75) 98 12/26/17 20:00 97.0 91 22 139/94 (109) 94 I/O 12/26/17 12/26/17 12/26/17 12/27/17 12/27/17 12/27/17 07:00 15:00 23:00 07:00 15:00 23:00 Intake Total 338 ml 624 ml Output Total 2000 ml Balance 338 ml -1376 ml Intake Oral 0 ml FFP 328 ml 324 ml Blood Product IV Normal Saline Flush 10 ml Other 300 ml Hemodialysis 2000 ml # Bowel Movements 1 Result Diagram: 12/24/17 0820 12/25/17 1812 Objective Remarks GENERAL: patient sitting up in bed. Appears comfortable. Again, no appreciable change on exam. SKIN: Warm and dry. HEAD: Normocephalic. EYES: No scleral icterus. No injection or drainage. NECK: Supple, trachea midline. No JVD or lymphadenopathy. CARDIOVASCULAR: Regular rate and rhythm without murmurs, gallops, or rubs. RESPIRATORY: Breath sounds equal bilaterally. No accessory muscle use. GASTROINTESTINAL: Abdomen still distended, however a little less so. Nontender.positive bowel sounds. MUSCULOSKELETAL: No cyanosis, or edema. BACK: Nontender without obvious deformity. No CVA tenderness. A/P Assessment and Plan // diarrhea/ abdominal distention check the stool for C-diff/ C/S- check abdominal US = Well ascites. Unable to do paracentesis secondary to elevated INR. Will hold warfarin. GI consulted. CT abdomen pending. Likely EGD/colonoscopy on Wednesday. BNP pending. = BNP elevated, obviously in part secondary to ESRD. Likely abdominal distention is secondary to CHF. Echocardiogram still pending. = INR 1.8. Repeat INR. Likely can have paracentesis tomorrow morning. Colonoscopy tomorrow morning as well. //generalized weakness- consult PT //ESRD- on HD ( M/W/F); consult nephrology- = Appreciate nephrology assistance for dialysis. //atrial fibrillation; HR controlled- continue metoprolol and cardizem- will hold coumadin tonight ( INR 3.6)- consult pharmacy for coumadin dosing. = Continue to hold warfarin. INR 3.0. = 4/1. INR rechecked today. Would like to avoid giving FFP if possible. If INR is over 2.0 today, will order 2.5 mg of vitamin K //CAD/CVA/ hypertension; resume home meds //DVT prophylaxis; holding Coumadin due to planned procedures Discharge Planning = EGD biopsies pending. =Repeat colonoscopy tomorrow 4/3 due to poor prep. = Paracentesis tomorrow4/3 = likely go home when cleared by Rolando Reid MD Dec 27, 2017 19:46
[2017-12-27] MEDS: CINACALCET HYDROCHLORIDE 30 MG TAB PO SCH (20:32)
[2017-12-27] MEDS: DILTIAZEM-CD 240 MG CAP ER PO SCH (20:33)
[2017-12-27] MEDS: CITALOPRAM HYDROBROMIDE 20 MG TAB PO SCH (20:34)
[2017-12-27 22:31] LABS: INTERNATIONAL NORMALIZED RATIO 1.5 RATIO; PROTHROMBIN TIME - PATIENT 15.5 SEC (9.8-11.6)
[2017-12-28] VITALS (7 sets, daily range): BP systolic 101–132; BP diastolic 66–94; PULSE 65–81; RESP 16–20; TEMP 97–98.6; O2SAT 93–99
[2017-12-28] MEDS: METOPROLOL TARTRATE 25 MG TAB PO SCH ×3 (00:22→22:08)
[2017-12-28] MEDS: SEVELAMER CARBONATE 800 MG TAB PO SCH ×3 (08:00→17:00)
[2017-12-28] MEDS: VITAMIN B CMPLX/VITC/FOLIC AC CAP PO SCH (09:00)
--- NOTE | 2017-12-28 09:59 | HHI.NPPN ---
Subjective General Problems: Anemia Renal Failure: Chronic Interval History NPO for repeat colonoscopy today with paracentesis. Resting, states he is hungry. (Chinyere Rodriguez) Objective Data Data Vital Signs Date Time Temp Pulse Resp B/P (MAP) Pulse Ox O2 Delivery O2 Flow Rate FiO2 12/28/17 07:47 97.7 78 20 132/86 (101) 94 12/28/17 04:32 98.0 65 17 109/72 (84) 96 12/28/17 00:14 97.4 81 18 123/94 (104) 93 12/27/17 21:27 98.1 113 17 135/97 (110) 96 12/27/17 14:44 97.3 91 22 112/77 (89) 95 12/27/17 12:16 97 22 127/86 (100) 95 12/27/17 12:02 94 (Chinyere Rodriguez) -: 12/24/17 0820 12/25/17 1812 Physical Exam General Appearance: No Acute Distress, Comfortable Appearance Remarks Disheveled (Chinyere Rodriguez) Eyes Eye Exam: Pupils Equal (Chinyere Rodriguez) Throat Throat Exam: Oral Mucosa [place] & Moist (Chinyere Rodriguez) Neck Neck Exam: Neck Supple (Chinyere Rodriguez) Pulmonary Resp Exam: Breath Sounds Equal, No Distress, Rhonchi, Decreased Bases (Chineyre Rodriguez) Cardiology CV Exam: Regular, Normal Sinus Rhythm (Chinyere Rodriguez) Gastrointestinal/Abdomen GI Exam: Non-Tender, Bowel Sounds Present, Distended GI Remarks firm, ascites is present (Chinyere Rodriguez) Musculoskeletal MS Exam: Normal Gait, Good Strength (Chinyere Rodriguez) Integumentary Skin Exam: Warm, Dry, Intact (Chinyere Rodriguez) Extremeties Extremities Exam: No Edema, Pedal Pulses Palpable (Chinyere Rodriguez) Neurologic Neuro Exam: Alert, Awake, Oriented, Speech Clear, Moving All Extremities (Chinyere Rodriguez) Psychiatric Psych Exam: Appropriate Responses (Chinyere Rodriguez) Assessment/Plan Discussed Condition With: Patient Assessment Summary: Anemia of CKD, End Stage Renal Disease Problem List: (1) ESRD on hemodialysis ICD Codes: N18.6 - End-stage renal disease on hemodialysis; Z99.2 - Dependence on renal dialysis Status: Chronic Plan: Continue dialysis support on MWF. Due tomorrow. He has outpatient arrangements at [facility]. Has patent AVF for treatment (L) Avoid IVF administration, gadolinium is contraindicated Obtain labs intermittently Epogen not required High protein diet when no longer NPO (2) Abdominal distension ICD Codes: R14.0 - Abdominal distension (gaseous) Plan: With GI bleeding C diff studies neg GI is following , plan for repeat colonoscopy today; yesterday endoscopy showed gastritis with multiple ulcers Abd US and CT show ascites, pending paracentesis today as well (3) Hypertension ICD Codes: I10 - Hypertension Status: Chronic Plan: Monitor BP, home medications were continued (4) Metabolic bone disease ICD Codes: M89.8X9 - Metabolic bone disease Status: Acute Plan: On Renvela with meals when no longer NPO (Chinyere Rodriguez) Problem List: (1) ESRD on hemodialysis ICD Codes: N18.6 - End-stage renal disease on hemodialysis; Z99.2 - Dependence on renal dialysis Status: Chronic Plan: Continue dialysis support on MWF. Due tomorrow. He has outpatient arrangements at [facility]. Has patent AVF for treatment (L) Avoid IVF administration, gadolinium is contraindicated Obtain labs intermittently Epogen not required High protein diet when no longer NPO (2) Abdominal distension ICD Codes: R14.0 - Abdominal distension (gaseous) Plan: With GI bleeding C diff studies neg GI is following , plan for repeat colonoscopy today; yesterday endoscopy showed gastritis with multiple ulcers Abd US and CT show ascites, pending paracentesis today as well (3) Hypertension ICD Codes: I10 - Hypertension Status: Chronic Plan: Monitor BP, home medications were continued (4) Metabolic bone disease ICD Codes: M89.8X9 - Metabolic bone disease Status: Acute Plan: On Renvela with meals when no longer NPO Plan patient was seen and examined. Agree with above assessment and plan. (Varun Chisholm MD) Chinyere Rodriguez Dec 28, 2017 09:59 Varun Chisholm MD Dec 28, 2017 10:31
[2017-12-28] MEDS: CITALOPRAM HYDROBROMIDE 20 MG TAB PO SCH (10:04)
[2017-12-28] MEDS: DILTIAZEM-CD 240 MG CAP ER PO SCH (10:08)
[2017-12-28 12:48] LABS: ALPHA-1-ANTITRYPSIN 202 mg/dL (100 - 190)
[2017-12-28] MEDS ORDERED: LORazepam 2 MG/ML VIAL IV PUSH ONE (14:15)
--- NOTE | 2017-12-28 14:19 | HHI.PR ---
Subjective Remarks Patient says he is feeling all right. Denies any chest pain or shortness of breath. Reports abdominal distention continues. Objective Vital Signs Date Time Temp Pulse Resp B/P (MAP) Pulse Ox O2 Delivery O2 Flow Rate FiO2 12/28/17 12:13 98.6 71 20 125/77 (93) 95 12/28/17 07:47 97.7 78 20 132/86 (101) 94 12/28/17 04:32 98.0 65 17 109/72 (84) 96 12/28/17 00:14 97.4 81 18 123/94 (104) 93 12/27/17 21:27 98.1 113 17 135/97 (110) 96 12/27/17 14:44 97.3 91 22 112/77 (89) 95 I/O 12/27/17 12/27/17 12/27/17 12/28/17 12/28/17 12/28/17 07:00 15:00 23:00 07:00 15:00 23:00 Intake Total 338 ml 624 ml 750 ml Output Total 2000 ml Balance 338 ml -1376 ml 750 ml Intake Oral 0 ml 750 ml FFP 328 ml 324 ml Blood Product IV Normal Saline Flush 10 ml Other 300 ml Hemodialysis 2000 ml # Voids 1 # Bowel Movements 1 Result Diagram: 12/24/17 0820 12/25/172 Objective Remarks GENERAL: patient sitting up in bed. Appears comfortable.no appreciable change on exam. SKIN: Warm and dry. HEAD: Normocephalic. EYES: No scleral icterus. No injection or drainage. NECK: Supple, trachea midline. No JVD or lymphadenopathy. CARDIOVASCULAR: Regular rate and rhythm without murmurs, gallops, or rubs. RESPIRATORY: Breath sounds equal bilaterally. No accessory muscle use. GASTROINTESTINAL: Abdomen still distended, however a little less so. Nontender.positive bowel sounds. MUSCULOSKELETAL: No cyanosis, or edema. BACK: Nontender without obvious deformity. No CVA tenderness. A/P Assessment and Plan // diarrhea/ abdominal distention check the stool for C-diff/ C/S- check abdominal US = Well ascites. Unable to do paracentesis secondary to elevated INR. Will hold warfarin. GI consulted. CT abdomen pending. Likely EGD/colonoscopy on Wednesday. BNP pending. = BNP elevated, obviously in part secondary to ESRD. Likely abdominal distention is secondary to CHF. Echocardiogram still pending. = INR 1.8. Repeat INR. Likely can have paracentesis tomorrow morning. Colonoscopy tomorrow morning as well. = INR 1.5. Paracentesis today. Follow-up results. Appreciate GI assistance. //generalized weakness- consult PT //ESRD- on HD ( M/W/F); consult nephrology- = Appreciate nephrology assistance for dialysis. //atrial fibrillation; HR controlled- continue metoprolol and cardizem- will hold coumadin tonight ( INR 3.6)- consult pharmacy for coumadin dosing. = Continue to hold warfarin. INR 3.0. = 4/1. INR rechecked today. Would like to avoid giving FFP if possible. If INR is over 2.0 today, will order 2.5 mg of vitamin K = INR 1.5. //CAD/CVA/ hypertension; resume home meds //DVT prophylaxis; holding Coumadin due to planned procedures Discharge Planning = EGD biopsies pending. =Repeat colonoscopy today was planned. = Paracentesis today = likely go home when cleared by Rolando Reid MD Dec 28, 2017 14:19
--- NOTE | 2017-12-28 14:27 | HHI.GIFU ---
Subjective Remarks Pt resting in bed. he said he drank as much of his prep as he could but can't drink anymore. c/o abd distention. (Nica Kuhn) Objective Vitals I&O Vital Signs Date Time Temp Pulse Resp B/P (MAP) Pulse Ox O2 Delivery O2 Flow Rate FiO2 12/28/17 12:13 98.6 71 20 125/77 (93) 95 12/28/17 07:47 97.7 78 20 132/86 (101) 94 12/28/17 04:32 98.0 65 17 109/72 (84) 96 12/28/17 00:14 97.4 81 18 123/94 (104) 93 12/27/17 21:27 98.1 113 17 135/97 (110) 96 12/27/17 14:44 97.3 91 22 112/77 (89) 95 I/O 12/27/17 12/27/17 12/27/17 12/28/17 12/28/17 12/28/17 07:00 15:00 23:00 07:00 15:00 23:00 Intake Total 338 ml 624 ml 750 ml Output Total 2000 ml Balance 338 ml -1376 ml 750 ml Intake Oral 0 ml 750 ml FFP 328 ml 324 ml Blood Product IV Normal Saline Flush 10 ml Other 300 ml Hemodialysis 2000 ml # Voids 1 # Bowel Movements 1 Laboratory Laboratory Tests Test 12/27/17 20:58 12/28/17 13:46 Prothrombin Time 15.5 Prothromb Time International Ratio 1.5 Date/Time Source Procedure Growth Status 12/24/17 10:45 Stool Stool - Final NO ENTERIC PATHOGENS DETECTED BY PCR... Complete Imaging Last Impressions Abdomen/Pelvis CT 12/25/17 0000 Signed Impressions: Service Date/Time: Tuesday, December 26, 2017 15:03 - CONCLUSION: 1. Large amount of ascites 2. Cholelithiasis 3. Poor opacification of the portal vein 4. Cardiomegaly 5. Left inguinal hernia containing a loop of sigmoid colon. 6. Severe bilateral renal disease with cortical thinning and multiple cysts. Nadir Andrews MD Chest X-Ray 12/24/17 0804 Signed Impressions: Service Date/Time: Sunday, December 24, 2017 08:22 - CONCLUSION: Cardiomegaly without evidence of significant congestion or acute air space disease there Nadir F. Juliana, MD Abdomen Ultrasound 12/24/17 0000 Signed Impressions: Service Date/Time: Sunday, December 24, 2017 12:43 - CONCLUSION: Moderate to large amount of ascitic fluid present. Ian Duran MD Physical Exam HEENT: PERRL normocephalic; atraumatic; no jaundice. CHEST: coarse, wheezes, coughing CARDIAC: RRR ABDOMEN: semifirm, distended, mild diffuse TTP BS + EXTREMITIES: No clubbing, cyanosis, or edema. SKIN: Normal; no rash; no jaundice. TELEVISION MECHANIC: alert (Nica Kuhn) Assessment and Plan Assessment: (1) Anemia ICD Codes: D64.9 - Anemia, unspecified Status: Acute (2) Diarrhea ICD Codes: R19.7 - Diarrhea, unspecified Plan Patient presented with diarrhea onset 3 weeks, some mild bloating and abdominal pain that was initiated around the same time. denies any previous EGD , colonoscopy, or liver disease. does note long-term EtOH usage and is still a lab to drink 1 ounce of alcohol per month. No previous colonoscopy, endoscopy, or liver workup Diarrhea, stool studies showed negative C. difficile no enteric pathogens Abdominal x-ray shows moderate to large amount of ascites.. This could be related to his renal disease, undiagnosed liver disease and/or alcohol, cardiomegaly. 12/26/[address] showing large ascites, gallstones, poor opacification portal vein. no paracentesis today, INR too high. will give K. liver w/u is pending. hep panel negative. 12/28/17 s/p EGD found erythematous gastritis, mult duodenal ulcers. INR 1.5 today, he can have paracentesis. no colonoscopy he did not do prep and refuses to try to drink any more bowel prep. liver w/u so far unremarkable Plan - paracentesis - await EGD bx - await rest of liver w/u - outpt colonoscopy - PPI - EGD in 2 m pt seen by myself and Dr Leblanc and this note is on his behalf (Nica Kuhn) Physician Comments Seen and examined with [facility], did not do bowel prep again. Colonoscopy cancelled for today. Paracentesis today. Colonoscopy when able to prep. (River Leblanc MD) Nica Kuhn Dec 28, 2017 14:27 River Leblanc MD Dec 28, 2017 15:49
[2017-12-28 14:30] LABS: AUTOMATED NEUTROPHIL # 6.4 TH/MM3 (1.8-7.7); BASOPHIL % 0.1 % (0.0-2.0); EOSINOPHIL % 0.7 % (0.0-4.0); HEMATOCRIT 35.7 % (39.0-51.0); HEMOGLOBIN 12.3 GM/DL (13.0-17.0); LYMPH % 7.3 % (9.0-44.0); LYMPHOCYTE # 0.5 TH/MM3 (1.0-4.8); MEAN CORPUSCULAR HEMOGLOBIN 29.3 PG (27.0-34.0); MEAN CORPUSCULAR HGB CONC 34.4 % (32.0-36.0); MONO % 6.2 % (0.0-8.0); MONOCYTE # 0.5 TH/MM3 (0-0.9); NEUT % 85.7 % (16.0-70.0); PLATELET COUNT 200 TH/MM3 (150-450); RED CELL DISTRIBUTION WIDTH 17.8 % (11.6-17.2); WHITE BLOOD COUNT 7.5 TH/MM3 (4.0-11.0)
[2017-12-28 14:41] LABS: INTERNATIONAL NORMALIZED RATIO 1.4 RATIO; PROTHROMBIN TIME - PATIENT 14.4 SEC (9.8-11.6)
[2017-12-28 14:46] LABS: ALBUMIN 2.8 GM/DL (3.4-5.0); BICARBONATE 28.7 MEQ/L (21.0-32.0); CALCIUM 7.8 MG/DL (8.5-10.1); CREATININE 6.79 MG/DL (0.60-1.30); MAGNESIUM 2.2 MG/DL (1.5-2.5); PHOSPHORUS 4.2 MG/DL (2.5-4.9)
[2017-12-28] MEDS: CINACALCET HYDROCHLORIDE 30 MG TAB PO SCH (16:00)
[2017-12-28] MEDS ORDERED: LIDOCAINE HCL 1% PF 10 ML VIAL ONE (16:15)
--- NOTE | 2017-12-28 17:01 | RADRPT ---
EXAM DATE/TIME: 12/28/2017 14:28 [place] COMPARISON: No previous studies available for comparison. INDICATIONS : Ascites. MEDICAL HISTORY : A-fib. Renal failure. SURGICAL HISTORY : AV fistula. Pacemaker. Orthopedic surgery. ENCOUNTER: Initial ACUITY: 1 week PAIN SCORE: 3/10 LOCATION: Right lower quadrant FLUID: Total volume of 9900 cc of erwin. fluid was removed. Fluid was sent to lab for ordered studies. Post procedure scanning reveals no hematoma or other complication. TECHNIQUE: 1. Ultrasound guidance for abdominal paracentesis. 2. Paracentesis. The risks, benefits, and alternatives to ultrasound guided paracentesis were explained to the patient in detail including the risk of bleeding and infection. Written and verbal informed consent was obt ained. With the patient on the ultrasound table, ultrasound imaging was used to select the most appropriate approach for paracentesis. Overlying skin was prepped and draped in the usual sterile fashion and wi th a local anesthetic, a dermatotomy was made with an 11 blade scalpel. A 6 German [id number] ca theter was introduced into the peritoneal cavity and fluid was collected. The patient tolerated the procedure well and left the ultrasound suite in stable condition. CONCLUSION: Uncomplicated ultrasound guided paracentesis. Sukhwinder Strickland MD on December 28, 2017 at 16:59 Board Certified Radiologist. This report was verified electronically.
[2017-12-28 17:23] LABS: TOTAL PROTEIN,PERITONEAL FLUID 3.9 GM/DL
[2017-12-28] MEDS ORDERED: ALBUMIN 25% INJ 100 ML IV ONE ×2 (17:45→22:00)
--- NOTE | 2017-12-28 17:51 | ECHRPT ---
Indication: HEART FAILURE CONCLUSIONS The left ventricular systolic function is mildly reduced with an estimated ejection fraction in the range of 45- 50%. Mild concentric left ventricular hypertrophy. The right ventricle is mildly dilated. Mild mitral valve regurgitation. Moderate aortic valve regurgitation. Mild aortic valve stenosis (peak 26, mean 15, HEAMNT 1.1) There is moderate to severe tricuspid valve regurgitation. Mild pulmonary valve regurgitation. BP: 127 / 86 HR: 97 Rhythm: Atrial fibrillation, Atrial flut ter MEASUREMENTS (Male / Female) Normal Values Technical Quality:Fair 2D ECHO LV Diastolic Diameter PLAX 5.1 cm 4.2 - 5.9 / 3.9 - 5.3 cm LV Systolic Diameter PLAX 4.2 cm IVS Diastolic Thickness 1.1 cm 0.6 - 1.0 / 0.6 - 0.9 cm LVPW Diastolic Thickness 1.1 cm 0.6 - 1.0 / 0.6 - 0.9 cm LV Relative Wall Thickness 0.4 RV Internal Dim ED PLAX 4.6 cm LVOT Diameter 2.2 cm Aortic Root Diameter 4.5 cm LA Systolic Diameter LX 4.7 cm 3.0 - 4.0 / 2.7 - 3.8 cm M-MODE AV Cusp Separation MM 1.7 cm DOPPLER AV Peak Velocity 257.0 cm/s AV Peak Gradient 26.4 mmHg AV Mean Gradient 15.0 mmHg AV Velocity Time Integral 51.4 cm AI Peak Velocity 459.0 cm/s AI Peak Gradient 84.3 mmHg AI Pressure Half Time 446.7 ms LVOT Peak Velocity 71.8 cm/s LVOT Peak Gradient 2.1 mmHg LVOT Velocity Time Integral 15.9 cm AV Area Cont Eq vti 1.2 cm AV Area Cont Eq pk 1.1 cm Mitral E Point Velocity 97.4 cm/s LV E' Lateral Velocity 13.5 cm/s Mitral E to LV E' Lateral Ratio 7.2 LV E' Septal Velocity 7.6 cm/s Mitral E to LV E' Septal Ratio 12.9 TR Peak Velocity 303.0 cm/s TR Peak Gradient 36.7 mmHg Right Atrial Pressure 10.0 mmHg Pulmonary Artery Systolic Pressu 46.7 mmHg Right Ventricular Systolic Press 46.7 mmHg PV Peak Velocity 29.3 cm/s PV Peak Gradient 0.3 mmHg FINDINGS LEFT VENTRICLE Normal left ventricular size. Mild concentric left ventricular hypertrophy. The left ventricular systolic function is mildly reduced with an estimated ejection fraction in the range of 45- 50%. RIGHT VENTRICLE The right ventricle is mildly dilated. The right ventricular systoilc function is normal. LEFT ATRIUM The left atrial size is [id number]-adsikbjw dilated. RIGHT ATRIUM The right atrial size is msvajuel-[id number] dilated. ATRIAL SEPTUM No atrial level shunt is demonstrated by color flow Doppler interrogation. AORTA Mild aortic dilatation at the level of the sinuses of Valsalva. MITRAL VALVE Grossly normal mitral valve Mild mitral valve regurgitation. No mitral valve stenosis. AORTIC VALVE Aortic valve sclerosis is present. Moderate aortic valve regurgitation. Mild aortic valve stenosis (peak 26, mean 15, HEMANT 1.1) TRICUSPID VALVE There is moderate to severe tricuspid valve regurgitation. The estimated pulmonary arterial pressure is 46.7 mmHg. PULMONARY VALVE Mild pulmonary valve regurgitation. VESSELS The inferior vena cava is normal in size. PERICARDIUM No pericardial effusion. Marcelino Lewis DO (Electronically Signed) Final Date:28 December 2017 17:50
[2017-12-28 18:17] LABS: PERITONEAL HISTIOCYTES 80 %; PERITONEAL LYMPHS 7 %; PERITONEAL MESOTHELIAL 11 %; PERITONEAL POLYS(SEGS) 2 %
[2017-12-28 18:23] LABS: PERITONEAL RBC 5006 /MM3 (0-0)
[2017-12-29 00:42] VITALS: BP 111/72; PULSE 60; RESP 16; TEMP 97.6; O2SAT 95
[2017-12-29 04:54] VITALS: BP 102/74; PULSE 63; RESP 17; TEMP 98.2; O2SAT 96
[2017-12-29 07:53] VITALS: BP 129/78; PULSE 107; RESP 20; TEMP 98.7; O2SAT 97
[2017-12-29] MEDS: VITAMIN B CMPLX/VITC/FOLIC AC CAP PO SCH (09:00)
[2017-12-29] MEDS: METOPROLOL TARTRATE 25 MG TAB PO SCH (09:00)
--- NOTE | 2017-12-29 09:06 | HHI.NPPN ---
Subjective General Problems: Anemia Renal Failure: Chronic, End Stage Renal Disease Interval History The pt had nearly 10 liters drained via paracentesis yesterday. Inadequate bowel prep, colonoscopy to be performed outpatient. Hungry, requesting food. Dialysis is due today. (Chinyere Rodriguez) Review of Systems Gastrointestinal Gastrointestinal: Blood/Tarry Stools (Chinyere Rodriguez) Objective Data Data Vital Signs Date Time Temp Pulse Resp B/P (MAP) Pulse Ox O2 Delivery O2 Flow Rate FiO2 12/29/17 07:53 98.7 107 20 129/78 (95) 97 12/29/17 04:54 98.2 63 17 102/74 (83) 96 12/29/17 00:42 97.6 60 16 111/72 (85) 95 12/28/17 21:58 98.3 65 16 106/66 (79) 95 12/28/17 15:42 97.3 70 16 101/67 (78) 99 12/28/17 14:05 97.0 65 16 127/86 (100) 97 12/28/17 12:13 98.6 71 20 125/77 (93) 95 (Chinyree Rodriguez) -: 12/28/17 1346 12/28/17 1346 Microbiology 12/28/17 Gram Stain, Received Pending 12/28/17 Body Fluid Culture, Received Pending Imaging Last 72 hours Impressions Cyst Biopsy Asp-Paracentesis US 12/28/17 0000 Signed Impressions: Service Date/Time: Thursday, December 28, 2017 14:28 - CONCLUSION: Uncomplicated ultrasound guided paracentesis. Sukhwinder Strickland MD (Chinyere Rodriguez) Physical Exam General Appearance: No Acute Distress, Comfortable Appearance Remarks Disheveled (Chinyere Rodriguez) Eyes Eye Exam: Pupils Equal (Chinyere Rodriguez) Throat Throat Exam: Oral Mucosa Macdoel & Moist (Chinyere Rodriguez) Neck Neck Exam: Neck Supple (Chinyere Rodriguez) Pulmonary Resp Exam: Breath Sounds Equal, No Distress, Rhonchi, Decreased Bases (Chinyere Rodriguez) Cardiology CV Exam: Regular, Normal Sinus Rhythm (Chinyere Rodriguez) Gastrointestinal/Abdomen GI Exam: Soft, Non-Tender, Bowel Sounds Present GI Remarks soft s/p paracentesis (Chinyere Rodriguez) Musculoskeletal MS Exam: Normal Gait, Good Strength (Chinyere Rodriguez) Integumentary Skin Exam: Warm, Dry, Intact (Chinyere Rodriguez) Extremeties Extremities Exam: No Edema, Pedal Pulses Palpable (Chinyere Rodriguez) Neurologic Neuro Exam: Alert, Awake, Oriented, Speech Clear, Moving All Extremities (Chinyere Rodriguez) Psychiatric Psych Exam: Appropriate Responses (Chinyere Rodriguez) Assessment/Plan Discussed Condition With: Patient Assessment Summary: Anemia of CKD, End Stage Renal Disease Problem List: (1) ESRD on hemodialysis ICD Codes: N18.6 - End-stage renal disease on hemodialysis; Z99.2 - Dependence on renal dialysis Status: Chronic Plan: Continue dialysis support on MWF. Treatment later today. He has outpatient arrangements at [facility] for discharge purposes. Has patent AVF for treatment (L) Avoid IVF administration, gadolinium is contraindicated High protein diet when no longer NPO (2) Abdominal distension ICD Codes: R14.0 - Abdominal distension (gaseous) Plan: With GI bleeding C diff studies neg GI is following , plan for repeat colonoscopy outpatient due to inadequate bowel prep; endoscopy at admission showed gastritis with multiple ulcers s/p paracentesis yesterday with nearly 9.9 L fluid removal (3) Hypertension ICD Codes: I10 - Hypertension Status: Chronic Plan: Monitor BP, home medications were continued (4) Metabolic bone disease ICD Codes: M89.8X9 - Metabolic bone disease Status: Acute Plan: On Renvela with meals Plan Cleared for discharge from renal perspective (Chinyere Rodriguez) Plan patient was seen and examined. Agree with above assessment and plan. Changed diet to renal diet. Seen during dialysis. UF increased to 3 liters. (Varun Chisholm MD) Chinyere Rodriguez Dec 29, 2017 09:06 Varun Chisholm MD Dec 29, 2017 10:29
[2017-12-29] MEDS: DILTIAZEM-CD 240 MG CAP ER PO SCH (09:33)
[2017-12-29] MEDS: SEVELAMER CARBONATE 800 MG TAB PO SCH ×3 (09:33→19:10)
[2017-12-29] MEDS: CITALOPRAM HYDROBROMIDE 20 MG TAB PO SCH (09:34)
--- NOTE | 2017-12-29 13:22 | HHI.GIFU ---
Subjective Remarks Pt getting HD. Feels better after paracentesis. Refusing to do bowel prep for colonoscopy. (Nica Kuhn) Objective Vitals I&O Vital Signs Date Time Temp Pulse Resp B/P (MAP) Pulse Ox O2 Delivery O2 Flow Rate FiO2 12/29/17 07:53 98.7 107 20 129/78 (95) 97 12/29/17 04:54 98.2 63 17 102/74 (83) 96 12/29/17 00:42 97.6 60 16 111/72 (85) 95 12/28/17 21:58 98.3 65 16 106/66 (79) 95 12/28/17 15:42 97.3 70 16 101/67 (78) 99 12/28/17 14:05 97.0 65 16 127/86 (100) 97 I/O 12/28/17 12/28/17 12/28/17 12/29/17 12/29/17 12/29/17 07:00 15:00 23:00 07:00 15:00 23:00 Intake Total 750 ml 100 ml Balance 750 ml 100 ml Intake Oral 750 ml IV Total 100 ml # Voids 1 # Bowel Movements 1 Laboratory Laboratory Tests Test 12/28/17 13:46 12/28/17 15:00 White Blood Count 7.5 Red Blood Count 4.20 Hemoglobin 12.3 Hematocrit 35.7 Mean Corpuscular Volume 85.0 Mean Corpuscular Hemoglobin 29.3 Mean Corpuscular Hemoglobin Concent 34.4 Red Cell Distribution Width 17.8 Platelet Count 200 Mean Platelet Volume 7.0 Neutrophils (%) (Auto) 85.7 Lymphocytes (%) (Auto) 7.3 Monocytes (%) (Auto) 6.2 Eosinophils (%) (Auto) 0.7 Basophils (%) (Auto) 0.1 Neutrophils # (Auto) 6.4 Lymphocytes # (Auto) 0.5 Monocytes # (Auto) 0.5 Eosinophils # (Auto) 0.0 Basophils # (Auto) 0.0 CBC Comment DIFF FINAL Differential Comment Prothrombin Time 14.4 Prothromb Time International Ratio 1.4 Blood Urea Nitrogen 41 Creatinine 6.79 Random Glucose 74 Albumin 2.8 Calcium Level 7.8 Phosphorus Level 4.2 Magnesium Level 2.2 Sodium Level 136 Potassium Level 4.0 Chloride Level 96 Carbon Dioxide Level 28.7 Anion Gap 11 Estimat Glomerular Filtration Rate 8 Peritoneal Fluid WBC 102 Peritoneal Fluid RBC 5006 Peritoneal Fluid Neutrophils 2 Peritoneal Fluid Lymphocytes 7 Peritoneal Fluid Histiocytes 80 Peritoneal Fluid Mesothelial Cells 11 Peritoneal Fluid Comment Peritoneal Fluid Total Protein 3.9 Peritoneal Fluid Albumin 1.8 Peritoneal Fluid LDH 105 Peritoneal Fluid Glucose 74 Date/Time Source Procedure Growth Status 12/28/17 15:00 Fluid Peritoneal Fluid Gram Stain - Final Resulted 12/28/17 15:00 Fluid Peritoneal Fluid Body Fluid Culture - Preliminary NO GROWTH IN 24 HOURS. Resulted 12/24/17 10:45 Stool Stool - Final NO ENTERIC PATHOGENS DETECTED BY PCR... Complete Imaging Last Impressions Cyst Biopsy Asp-Paracentesis US 12/28/17 0000 Signed Impressions: Service Date/Time: Thursday, December 28, 2017 14:28 - CONCLUSION: Uncomplicated ultrasound guided paracentesis. Sukhwinder Strickland MD Abdomen/Pelvis CT 12/25/17 0000 Signed Impressions: Service Date/Time: Tuesday, December 26, 2017 15:03 - CONCLUSION: 1. Large amount of ascites 2. Cholelithiasis 3. Poor opacification of the portal vein 4. Cardiomegaly 5. Left inguinal hernia containing a loop of sigmoid colon. 6. Severe bilateral renal disease with cortical thinning and multiple cysts. Nadir Andrews MD Chest X-Ray 12/24/17 0804 Signed Impressions: Service Date/Time: Sunday, December 24, 2017 08:22 - CONCLUSION: Cardiomegaly without evidence of significant congestion or acute air space disease there Nadir Andrews MD Abdomen Ultrasound 12/24/17 0000 Signed Impressions: Service Date/Time: Sunday, December 24, 2017 12:43 - CONCLUSION: Moderate to large amount of ascitic fluid present. Ian Duran MD Physical Exam HEENT: PERRL normocephalic; atraumatic; no jaundice. CHEST: coarse, wheezes, coughing CARDIAC: RRR ABDOMEN: soft, mildly distended- less than yesterday, nontender BS + EXTREMITIES: No clubbing, cyanosis, or edema. SKIN: Normal; no rash; no jaundice. 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 denies any previous EGD , colonoscopy, or liver disease. does note long-term EtOH usage and is still a lab to drink 1 ounce of alcohol per month. No previous colonoscopy, endoscopy, or liver workup Diarrhea, stool studies showed negative C. difficile no enteric pathogens Abdominal x-ray shows moderate to large amount of ascites.. This could be related to his renal disease, undiagnosed liver disease and/or alcohol, cardiomegaly. 12/26/[address] showing large ascites, gallstones, poor opacification portal vein. no paracentesis today, INR too high. will give K. liver w/u is pending. hep panel negative. 12/28/17 s/p EGD found erythematous gastritis, mult duodenal ulcers. INR 1.5 today, he can have paracentesis. no colonoscopy he did not do prep and refuses to try to drink any more bowel prep. liver w/u so far unremarkable 12/29/17 seen in HD. s/p paracentesis 9900 cc removed. SAAG 1.0. EGD bx pending. liver w/u so far unremarkable. no labs today. he is refusing to do bowel prep for colonoscopy. Plan -await bx - await peritoneal fluid cx & cytology - await rest of liver w/u -refusing bowel prep for colonoscopy - PPI - EGD in 2 m pt seen by myself and Dr Leblanc and this note is on his behalf (Nica Kuhn) Physician Comments Seen and examined with FRONT END TECHNICIAN, S/P paracentesis. Does not want to do bowel prep. Repeat egd as recommended. GI will sign off. FU with GI after DC. Thank you (River Leblanc MD) Nica Kuhn Dec 29, 2017 13:22 River Leblanc MD Dec 29, 2017 16:37
[2017-12-29 15:24] LABS: SMOOTH MUSCLE TOTAL AUTOABS Negative (Negative); TRANSGLUTAMINASE IGA AB <1.2 U/mL; TRANSGLUTAMINASE IGG AB 4.7 U/mL
[2017-12-29 16:50] LABS: INTERNATIONAL NORMALIZED RATIO 1.4 RATIO; PROTHROMBIN TIME - PATIENT 14.5 SEC (9.8-11.6)
[2017-12-29 17:27] VITALS: BP 110/63; PULSE 88; RESP 18; TEMP 98.4; O2SAT 95
--- NOTE | 2017-12-29 18:06 | HHI.PR ---
Subjective Remarks Patient says he is feeling right today. He says he does not feel like going home.he is not eating any food during this admission until today. He would like to make sure he can eat before going home. Abdomen continues soft after paracentesis yesterday. Objective Vital Signs Date Time Temp Pulse Resp B/P (MAP) Pulse Ox O2 Delivery O2 Flow Rate FiO2 12/29/17 17:27 98.4 88 18 110/63 (79) 95 12/29/17 07:53 98.7 107 20 129/78 (95) 97 12/29/17 04:54 98.2 63 17 102/74 (83) 96 12/29/17 00:42 97.6 60 16 111/72 (85) 95 12/28/17 21:58 98.3 65 16 106/66 (79) 95 I/O 12/28/17 12/28/17 12/28/17 12/29/17 12/29/17 12/29/17 07:00 15:00 23:00 07:00 15:00 23:00 Intake Total 750 ml 100 ml Output Total 2900 ml Balance 750 ml 100 ml -2900 ml Intake Oral 750 ml IV Total 100 ml Hemodialysis 2900 ml # Voids 1 # Bowel Movements 1 Result Diagram: 12/28/17 1346 12/28/17 1346 Objective Remarks GENERAL: patient sitting up in bed. Appears comfortable. SKIN: Warm and dry. HEAD: Normocephalic. EYES: No scleral icterus. No injection or drainage. NECK: Supple, trachea midline. No JVD or lymphadenopathy. CARDIOVASCULAR: Regular rate and rhythm without murmurs, gallops, or rubs. RESPIRATORY: Breath sounds equal bilaterally. No accessory muscle use. GASTROINTESTINAL: Abdomen -soft, nontender nondistended.. Nontender.positive bowel sounds. MUSCULOSKELETAL: No cyanosis, or edema. BACK: Nontender without obvious deformity. No CVA tenderness. A/P Assessment and Plan // diarrhea/ abdominal distention check the stool for C-diff/ C/S- check abdominal US = Well ascites. Unable to do paracentesis secondary to elevated INR. Will hold warfarin. GI consulted. CT abdomen pending. Likely EGD/colonoscopy on Wednesday. BNP pending. = BNP elevated, obviously in part secondary to ESRD. Likely abdominal distention is secondary to CHF. Echocardiogram still pending. = INR 1.8. Repeat INR. Likely can have paracentesis tomorrow morning. Colonoscopy tomorrow morning as well. = INR 1.5. Paracentesis today. Follow-up results. Appreciate GI assistance. = INR 1.4. Restart warfarin. //Ascites. Serum ascites albumin gradient less than 1, indicating possible malignancy. Cytology is pending. Follow-up with gastroenterology as outpatient. Certainly CHF could be a component, and we'll recommend more fluid to be removed during dialysis //generalized weakness- consult PT, recommends home with no PT. //ESRD- on HD ( M/W/F); consult nephrology- = Appreciate nephrology assistance for dialysis. //atrial fibrillation; HR controlled- continue metoprolol and cardizem- will hold coumadin tonight ( INR 3.6)- consult pharmacy for coumadin dosing. = Continue to hold warfarin. INR 3.0. = 4/1. INR rechecked today. Would like to avoid giving FFP if possible. If INR is over 2.0 today, will order 2.5 mg of vitamin K = INR 1.5. = 4/4. Restart warfarin. //CAD/CVA/ hypertension; resume home meds //DVT prophylaxis; holding Coumadin due to planned procedures Discharge Planning = EGD biopsies pending. = Follow gastroenterology to go over cytology. Possible malignancy We'll follow-up with nephrology for dialysis as outpatient. = Plan discharge home tomorrow morning. Rolando Flores MD Dec 29, 2017 18:06
[2017-12-29] MEDS ORDERED: WARFARIN SOD 3 MG TAB PO ONE (18:30)
--- NOTE | 2017-12-29 18:49 | HHI.DS ---
Discharge Summary Admission Date Dec 24, 2017 at 10:30 Discharge Date: Dec 29, 2017 Admitting Diagnosis weakness, end stage renal disease, diarrha, (1) Diarrhea ICD Code: R19.7 - Diarrhea, unspecified Diagnosis: Principal (2) Weakness ICD Code: R53.1 - Weakness Diagnosis: Secondary Status: Acute Procedures paracentesis. EGD. please see EGD report. Brief History - From Admission patient is a 62 y/o male with history of ESRD, on HD, CAD, CVA, atrial fibrillation who presented to ER with diarrhea. he says that he's had non- bloody diarrhea for three weeks. he denies any abdominal pain, fever or chills. had on and off nausea. he says that he took some antibiotics for his cold recently. he's on // schedule for his HD and the last HD was on wednesday. he denies any chest pain or sob. CBC/BMP: 12/28/17 1346 12/28/17 1346 Significant Findings Laboratory Tests Test 12/27/17 13:22 12/27/17 20:58 12/28/17 13:46 12/28/17 15:00 Prothrombin Time 18.1 SEC (9.8-11.6) 15.5 SEC (9.8-11.6) 14.4 SEC (9.8-11.6) Red Blood Count 4.20 MIL/MM3 (4.50-5.90) Hemoglobin 12.3 GM/DL (13.0-17.0) Hematocrit 35.7 % (39.0-51.0) Red Cell Distribution Width 17.8 % (11.6-17.2) Neutrophils (%) (Auto) 85.7 % (16.0-70.0) Lymphocytes (%) (Auto) 7.3 % (9.0-44.0) Lymphocytes # (Auto) 0.5 TH/MM3 (1.0-4.8) Blood Urea Nitrogen 41 MG/DL (7-18) Creatinine 6.79 MG/DL (0.60-1.30) Albumin 2.8 GM/DL (3.4-5.0) Calcium Level 7.8 MG/DL (8.5-10.1) Chloride Level 96 MEQ/L (98-107) Estimat Glomerular Filtration Rate 8 ML/MIN (>89) Peritoneal Fluid WBC 102 /MM3 (0-10) Peritoneal Fluid RBC 5006 /MM3 (0-0) Test 12/29/17 15:48 Prothrombin Time 14.5 SEC (9.8-11.6) Imaging Last Impressions Cyst Biopsy Asp-Paracentesis US 12/28/17 0000 Signed Impressions: Service Date/Time: Thursday, December 28, 2017 14:28 - CONCLUSION: Uncomplicated ultrasound guided paracentesis. Sukhwinder Strickland MD Abdomen/Pelvis CT 12/25/17 0000 Signed Impressions: Service Date/Time: Tuesday, December 26, 2017 15:03 - CONCLUSION: 1. Large amount of ascites 2. Cholelithiasis 3. Poor opacification of the portal vein 4. Cardiomegaly 5. Left inguinal hernia containing a loop of sigmoid colon. 6. Severe bilateral renal disease with cortical thinning and multiple cysts. Nadir Andrews MD Chest X-Ray 12/24/17 0804 Signed Impressions: Service Date/Time: Sunday, December 24, 2017 08:22 - CONCLUSION: Cardiomegaly without evidence of significant congestion or acute air space disease there Nadir Andrews MD Abdomen Ultrasound 12/24/17 0000 Signed Impressions: Service Date/Time: Sunday, December 24, 2017 12:43 - CONCLUSION: Moderate to large amount of ascitic fluid present. Ian Duran MD Hospital Course Patient presented with marked abdominal ascites. Coumadin was held, small amount of vitamin K given prior to paracentesis. Patient underwent large volume paracentesis with albumin given afterwards. Gastroenterology was consulted, performed EGD with biopsies. Please see report. Colon prep was insufficient, and colonoscopy will need to be done as outpatient. Patient's symptoms improved greatly after abdominal paracentesis. Cytology pending at time of discharge. BN P found to be markedly elevated 2897, however no recent baseline. Echocardiogram performed and shows ejection fraction 4550 percent. Moderate aortic valve regurgitation, mild aortic valve stenosis, moderate to severe tricuspid valve regurgitation. Refer to cardiology as outpatient. Patient placed on fluid restrictions. For problem-based summary from most recent progress note, please see below. // diarrhea/ abdominal distention check the stool for C-diff/ C/S- check abdominal US = Well ascites. Unable to do paracentesis secondary to elevated INR. Will hold warfarin. GI consulted. CT abdomen pending. Likely EGD/colonoscopy on Wednesday. BNP pending. = BNP elevated, obviously in part secondary to ESRD. Likely abdominal distention is secondary to CHF. Echocardiogram still pending. = INR 1.8. Repeat INR. Likely can have paracentesis tomorrow morning. Colonoscopy tomorrow morning as well. = INR 1.5. Paracentesis today. Follow-up results. Appreciate GI assistance. = INR 1.4. Restart warfarin. //Ascites. Serum ascites albumin gradient less than 1, indicating possible malignancy. Cytology is pending. Follow-up with gastroenterology as outpatient. Certainly CHF could be a component, and we'll recommend more fluid to be removed during dialysis //generalized weakness- consult PT, recommends home with no PT. //ESRD- on HD ( M/W/F); consult nephrology- = Appreciate nephrology assistance for dialysis. //atrial fibrillation; HR controlled- continue metoprolol and cardizem- will hold coumadin tonight ( INR 3.6)- consult pharmacy for coumadin dosing. = Continue to hold warfarin. INR 3.0. = 4/1. INR rechecked today. Would like to avoid giving FFP if possible. If INR is over 2.0 today, will order 2.5 mg of vitamin K = INR 1.5. = 4/4. Restart warfarin. //CAD/CVA/ hypertension; resume home meds //DVT prophylaxis; holding Coumadin due to planned procedures Discharge Planning = EGD biopsies pending. = Follow gastroenterology to go over cytology. Possible malignancy We'll follow-up with nephrology for dialysis as outpatient. = Plan discharge home tomorrow morning. Pt Condition on Discharge: Good Discharge Disposition: Discharge Home Discharge Time: > 30 minutes Discharge Instructions DIET: Follow Instructions for: Renal Failure Diet Activities you can perform: Regular-No Restrictions Follow up Referrals: Cardiology - 1 Week Gastroenterology - 1 Week with Clement Patel MD Nephrology - Daily with Varun Chisholm MD PCP Follow-up - 1 Week with Nadir Cota M.d. Continued Medications: B-Complex W/ C & Folic Acid (Jennifer-Phani) 1 Tab 1 TAB PO DAILY, TAB Cinacalcet (Sensipar) 30 Mg Tab 60 MG PO AC DINNER for end stage renal disease, #60 TAB 0 Refills Citalopram (Citalopram) 20 Mg Tab 30 MG PO DAILY for Control Depression, #30 TAB 0 Refills Diltiazem ER 12 HR (Diltiazem ER 12 HR) 120 Mg Caper 240 MG PO DAILY, #60 CAP 0 Refills Diphenhydramine (Diphenhydramine) 25 Mg Cap 25 MG PO Q12H PRN for ALLERGIES, CAP 0 Refills Hydrocodone-Acetaminophen ([place]) 5 Mg-325 Mg Tab 1 TAB PO Q6H PRN for PAIN, #15 TAB 0 Refills Melatonin (Melatonin) 5 Mg Tab 6 MG PO HS for Provide Good Sleep, TAB 0 Refills Metoprolol Tartrate (Metoprolol Tartrate) 25 Mg Tab 25 MG PO BID, #60 TAB 0 Refills Ondansetron (Zofran) 4 Mg Tab 4 MG PO Q8HR PRN for NAUSEA OR VOMITING, TAB 0 Refills Sevelamer Carbonate (Renvela) 800 Mg Tab 2400 MG PO TIDAC for renal failure, #270 TAB 0 Refills Warfarin (Warfarin) 3 Mg Tab 3 MG PO DAILY for Blood Clot Prevention, TAB 0 Refills Rolando Flores MD Dec 29, 2017 18:49
[2017-12-29] MEDS: CINACALCET HYDROCHLORIDE 30 MG TAB PO SCH (19:11)
[2017-12-30 11:50] LABS: MITOCHONDRIAL ABS LESS THAN 20.0 U (<=20.0)
[2017-12-30 15:11] LABS: AMYLASE BODY FLUID 31 U/L; AMYLASE BODY FLUID TYPE PERITONEAL
[2017-12-30] MEDS ORDERED: WARFARIN SOD 3 MG TAB PO SCH (16:00)
[2017-12-30 19:52] LABS: CERULOPLASMIN 41 mg/dL (18-36)
== END 2017-12-29 20:16 | disposition home or self-care (01) ==
LOC: NEPE 07:53 → NEDA 10:30 → NEPGCP 13:44
PROVIDERS: ADMIT Internal Medicine; ATTEND Internal Medicine
DX: R19.7 Diarrhea, unspecified (principal); R14.0 Abdominal distension (gaseous); R18.8 Other ascites; K21.0 Gastro-esophageal reflux disease with esophagitis; K26.9 Duodenal ulcer, unspecified as acute or chronic, without hemorrhage or perforation; K29.70 Gastritis, unspecified, without bleeding; I13.2 Hypertensive heart and chronic kidney disease with heart failure and with stage 5 chronic kidney disease, or end stage renal disease; I50.9 Heart failure, unspecified; N18.6 End stage renal disease; I48.91 Unspecified atrial fibrillation; I08.2 Rheumatic disorders of both aortic and tricuspid valves; I25.10 Atherosclerotic heart disease of native coronary artery without angina pectoris; J44.9 Chronic obstructive pulmonary disease, unspecified; I45.81 Long QT syndrome; R94.31 Abnormal electrocardiogram [ECG] [EKG]; K80.20 Calculus of gallbladder without cholecystitis without obstruction; K40.90 Unilateral inguinal hernia, without obstruction or gangrene, not specified as recurrent; Q61.02 Congenital multiple renal cysts; R05 Cough; D63.1 Anemia in chronic kidney disease; I25.2 Old myocardial infarction; F03.90 Unspecified dementia, unspecified severity, without behavioral disturbance, psychotic disturbance, mood disturbance, and anxiety; F41.9 Anxiety disorder, unspecified; F32.9 Major depressive disorder, single episode, unspecified; M16.0 Bilateral primary osteoarthritis of hip; E88.89 Other specified metabolic disorders; F10.20 Alcohol dependence, uncomplicated; Z99.2 Dependence on renal dialysis; Z86.73 Personal history of transient ischemic attack (TIA), and cerebral infarction without residual deficits; Z79.899 Other long term (current) drug therapy
CPT/HCPCS: 00731; 36415; 36430; 43239; 49083; 71045; 74177; 76705; 80053; 80069; 80074; 82042; 82103; 82105; 82150; 82390; 82945; 83516; 83520; 83615; 83690; 83735; 83880; 84100; 84157; 85025; 85610; 85730; 86038; 86255; 86301; 86927; 87015; 87070; 87205; 87493; 87506; 88112; 88305; 89051; 90935; 93005; 93306; 96374; 97162; 99285; C1729; G0257; G0378; G8987; G8988; J1940; J2060; J7512; P9017; Q0163; Q9963; Q9967; P9047

== ENCOUNTER 2018-01-09 11:36 | Emergency (ER) | payer MEDICARE ==
[~2018-01-09] VITALS: Ht 172.7 cm; Wt 74.0 kg
[~2018-01-09 11:36] MED LIST changes: -COUM5TAB PO; +MELA5 PO; +WARF-58 PO
[2018-01-09 11:44] VITALS: BP 115/55; PULSE 100; RESP 20; TEMP 98.6; O2SAT 99
[2018-01-09 13:57] VITALS: BP 110/70; PULSE 86; RESP 17; O2SAT 94
[2018-01-09] MEDS ORDERED: LOPERAMIDE HCL 2 MG CAP PO ONE (14:00)
[2018-01-09] MEDS ORDERED: SODIUM CHLORIDE 0.9% FLUSH 10 ML FLUSH IVF PRN (14:00)
--- NOTE | 2018-01-09 14:13 | PD ---
HPI Chief Complaint: GI Complaint Time Seen by Provider: 13:37 Travel History International Travel<30 days: No Contact w/Intl Traveler<30days: No Traveled to known affect area: No History of Present Illness HPI Patient is a 62-year-old male presenting to the emergency department for evaluation of 6 weeks of diarrhea. Patient states he goes 3-5 times a day. He states it is soft, loose and watery. The diarrhea has no correlation with food or meals. He states it occurs randomly throughout the day. Patient denies any abdominal pain, chest pain, shortness of breath, fevers, chills. Patient is on hemodialysis, Wednesday, Wednesday, Fridays. He reports that he had dialysis yesterday. Symptoms are chronic in nature, there are no alleviating factors. Patient denies taking any medications to alleviate the diarrhea. Patient presented today because he had one episode of explosive diarrhea per the skilled nursing nurse. Nurse did not administer loperamide, instead he was sent to the emergency department. PFSH Past Medical History Hx Anticoagulant Therapy: Yes (On Coumadin) Arthritis: Yes (bilateral hips) Atrial Fibrillation: Yes Anxiety: Yes Depression: Yes Congestive Heart Failure: Yes Cerebrovascular Accident: Yes Dementia: Yes Dialysis: Yes ([facility]) Hypertension: Yes Neurologic: Yes Immunizations Current: Yes Myocardial Infarction: Yes Renal Failure: Yes Influenza Vaccination: Yes Past Surgical History Body Medical Devices: Left AV fistula Social History Alcohol Use: Yes (1 beer every 6 months) Tobacco Use: No (never) Substance Use: No Allergies-Medications (Allergen,Severity, Reaction): Coded Allergies: bee venom protein (honey bee) (Unverified Allergy, Severe, Anaphylaxis, ) *MDRO Multi-Drug Resistant Organism (Verified Adverse Reaction, Unknown, ) MRSA (leg/groin abscess) - 2006 *MRSA PCR negative 11/03/15 & 11/05/15. Pt does not require isolation for hx of MDRO prior to 11/05/15.* Uncoded Allergies: Contac cold medicine (Allergy, Severe, Hives, 01/08/17) allergy Reported Meds & Prescriptions Reported Meds & Active Scripts Active [place] (Hydrocodone-Acetaminophen) 5 Mg-325 Mg Tab 1 Tab PO Q6H PRN Sensipar (Cinacalcet) 30 Mg Tab 60 Mg PO AC DINNER Renvela (Sevelamer Carbonate) 800 Mg Tab 2,400 Mg PO TIDAC Reported Warfarin 3 Mg Tab 3 Mg PO DAILY Melatonin 5 Mg Tab 6 Mg PO HS Metoprolol Tartrate 25 Mg Tab 25 Mg PO BID Zofran (Ondansetron HCl) 4 Mg Tab 4 Mg PO Q8HR PRN Diphenhydramine (Diphenhydramine HCl) 25 Mg Cap 25 Mg PO Q12H PRN Jennifer-Phani (B-Complex W/ C & Folic Acid) 1 Tab 1 Tab PO DAILY Diltiazem ER 12 HR (Diltiazem HCl) 120 Mg Caper 240 Mg PO DAILY Citalopram (Citalopram Hydrobromide) 20 Mg Tab 30 Mg PO DAILY Review of Systems Except as stated in HPI: all other systems reviewed are Neg General / Constitutional: No: Fever Eyes: No: Blurred Vision HENT: No: Headaches, Lightheadedness Cardiovascular: No: Chest Pain or Discomfort Respiratory: No: Shortness of Breath Gastrointestinal: Positive: Diarrhea, No: Nausea, Abdominal Pain, Constipation , Changes in Bowel Habits, Indigestion, Loss of Appetite Genitourinary: No: Dysuria Musculoskeletal: No: Myalgias Neurologic: No: Weakness, Dizziness, Syncope, Focal Abnormalities Physical Exam Narrative GENERAL: Well-developed, well-nourished, alert male. Presenting in no acute distress. SKIN: Warm and dry. HEAD: Atraumatic. Normocephalic. EYES: Pupils equal and round. No scleral icterus. No injection or drainage. ENT: No nasal bleeding or discharge. Mucous membranes pink and moist. NECK: Trachea midline. No JVD. CARDIOVASCULAR: Regular rate and rhythm. Left AV fistula with positive thrill, positive bruit. 3/6 systolic murmur. RESPIRATORY: No accessory muscle use. Clear to auscultation. Breath sounds equal bilaterally. GASTROINTESTINAL: Abdomen soft, non-tender, nondistended. Hepatic and splenic margins not palpable. MUSCULOSKELETAL: Extremities without clubbing, cyanosis, or edema. No obvious deformities. NEUROLOGICAL: Awake and alert. No obvious cranial nerve deficits. Motor grossly within normal limits. Five out of 5 muscle strength in the arms and legs. Normal speech. PSYCHIATRIC: Appropriate mood and affect; insight and judgment normal. Data Data Last Documented VS Vital Signs Date Time Temp Pulse Resp B/P (MAP) Pulse Ox O2 Delivery O2 Flow Rate FiO2 01/09/18 13:57 86 17 110/70 (83) 94 Room Air 01/09/18 11:44 98.6 Orders Orders Complete Blood Count With Diff (01/09/18 13:51) Comprehensive Metabolic Panel (01/09/18 13:51) Iv Access Insert/Monitor (01/09/18 13:51) Ecg Monitoring (01/09/18 13:51) Oximetry (01/09/18 13:51) Sodium Chloride 0.9% Flush (Ns Flush) (01/09/18 14:00) C Diff Toxin Pcr (01/09/18 13:51) Enteric Path (Stool) (01/09/18 13:51) Loperamide (Imodium) (01/09/18 14:00) Act Partial Throm Time (Ptt) (01/09/18 13:58) Prothrombin Time / Inr (Pt) (01/09/18 13:58) Labs Laboratory Tests Test 01/09/18 14:12 White Blood Count 7.3 TH/MM3 Red Blood Count 4.40 MIL/MM3 Hemoglobin 12.8 GM/DL Hematocrit 37.8 % Mean Corpuscular Volume 85.9 FL Mean Corpuscular Hemoglobin 29.1 PG Mean Corpuscular Hemoglobin Concent 33.9 % Red Cell Distribution Width 19.4 % Platelet Count 258 TH/MM3 Mean Platelet Volume 6.7 FL Neutrophils (%) (Auto) 80.4 % Lymphocytes (%) (Auto) 8.6 % Monocytes (%) (Auto) 7.9 % Eosinophils (%) (Auto) 2.3 % Basophils (%) (Auto) 0.8 % Neutrophils # (Auto) 5.9 TH/MM3 Lymphocytes # (Auto) 0.6 TH/MM3 Monocytes # (Auto) 0.6 TH/MM3 Eosinophils # (Auto) 0.2 TH/MM3 Basophils # (Auto) 0.1 TH/MM3 CBC Comment DIFF FINAL Differential Comment Prothrombin Time 12.8 SEC Prothromb Time International Ratio 1.3 RATIO Activated Partial Thromboplast Time 32.2 SEC Blood Urea Nitrogen 47 MG/DL Creatinine 6.49 MG/DL Random Glucose 56 MG/DL Total Protein 7.0 GM/DL Albumin 2.9 GM/DL Calcium Level 8.6 MG/DL Alkaline Phosphatase 206 U/L Aspartate Amino Transf (AST/SGOT) 23 U/L Alanine Aminotransferase (ALT/SGPT) 26 U/L Total Bilirubin 0.6 MG/DL Sodium Level 138 MEQ/L Potassium Level 5.0 MEQ/L Chloride Level 106 MEQ/L Carbon Dioxide Level 24.4 MEQ/L Anion Gap 8 MEQ/L Estimat Glomerular Filtration Rate 9 ML/MIN [facility] Medical Decision Making Medical Screen Exam Complete: Yes Emergency Medical Condition: Yes Medical Record Reviewed: Yes Interpretation(s) Laboratory Tests Test 01/09/18 14:12 White Blood Count 7.3 TH/MM3 Red Blood Count 4.40 MIL/MM3 Hemoglobin 12.8 GM/DL Hematocrit 37.8 % Mean Corpuscular Volume 85.9 FL Mean Corpuscular Hemoglobin 29.1 PG Mean Corpuscular Hemoglobin Concent 33.9 % Red Cell Distribution Width 19.4 % Platelet Count 258 TH/MM3 Mean Platelet Volume 6.7 FL Neutrophils (%) (Auto) 80.4 % Lymphocytes (%) (Auto) 8.6 % Monocytes (%) (Auto) 7.9 % Eosinophils (%) (Auto) 2.3 % Basophils (%) (Auto) 0.8 % Neutrophils # (Auto) 5.9 TH/MM3 Lymphocytes # (Auto) 0.6 TH/MM3 Monocytes # (Auto) 0.6 TH/MM3 Eosinophils # (Auto) 0.2 TH/MM3 Basophils # (Auto) 0.1 TH/MM3 CBC Comment DIFF FINAL Differential Comment Prothrombin Time 12.8 SEC Prothromb Time International Ratio 1.3 RATIO Activated Partial Thromboplast Time 32.2 SEC Blood Urea Nitrogen 47 MG/DL Creatinine 6.49 MG/DL Random Glucose 56 MG/DL Total Protein 7.0 GM/DL Albumin 2.9 GM/DL Calcium Level 8.6 MG/DL Alkaline Phosphatase 206 U/L Aspartate Amino Transf (AST/SGOT) 23 U/L Alanine Aminotransferase (ALT/SGPT) 26 U/L Total Bilirubin 0.6 MG/DL Sodium Level 138 MEQ/L Potassium Level 5.0 MEQ/L Chloride Level 106 MEQ/L Carbon Dioxide Level 24.4 MEQ/L Anion Gap 8 MEQ/L Estimat Glomerular Filtration Rate 9 ML/MIN Vital Signs Date Time Temp Pulse Resp B/P (MAP) Pulse Ox O2 Delivery O2 Flow Rate FiO2 01/09/18 13:57 86 17 110/70 (83) 94 Room Air 01/09/18 11:44 98.6 100 20 115/55 (18) 90 Differential Diagnosis Chronic diarrhea versus metabolic abnormality versus gastroenteritis versus other Narrative Course Patient is a 62-year-old male that was sent to the emergency department by the assisted living facility after an episode of explosive diarrhea. Patient is well-appearing. Patient was just discharged on December 29, during that admission he was evaluated by GI. He had an upper endoscopy, colonoscopy however the prep was insufficient. Stool studies were negative. Patient has loperamide on his mar from the skilled nursing however he has not been given this medication over the last 2 weeks to help with his symptoms. Patient's vital signs are stable, IV access established, will obtain basic labs to rule out metabolic abnormality. Patient is requesting food and states he has not eaten since breakfast. If patient has another bowel movement in the emergency department, we will obtain stool studies once again. Patient has not followed up with service engine repairer as advised on most recent discharge. CBC is unremarkable, chemistry with no acute findings, BUN and creatinine are elevated, this is to be expected patient is on hemodialysis. His next dialysis treatment is tomorrow. Patient one episode of loose stool in the emergency department, stool studies ordered and pending. Patient be given dose of Imodium now He tolerated lunch with no abdominal pain, nausea, vomiting. His vital signs are stable. Initial blood glucose was 56 however patient had eaten and after that lab was obtained. Will repeat blood glucose now. Patient was advised to notify staff at the assisted living facility when he needs the Imodium for his diarrhea. Patient was unaware that he had medication ordered for this. Patient will be discharged home to the assisted living facility. Diagnosis Primary Impression: Diarrhea Qualified Codes: R19.7 - Diarrhea, unspecified Referrals: Steam Turbine Operator 1 week Primary Care Physician 1 week Patient Instructions: Chronic Diarrhea (ED), General Instructions Additional Instructions: Follow-up with your primary doctor Follow-up with service engine repairer as advised on previous discharge Avoid concentrated sweets, sweetened drinks, fruit juices Return to emergency department for any new or worsening symptoms Med/Other Pt SpecificInfo: No Change to Meds Disposition: 03 DISCHARGE TO SNF Condition: Stable RogelioNaheed [facility] Jan 09, 2018 14:13
[2018-01-09 14:23] LABS: AUTOMATED NEUTROPHIL # 5.9 TH/MM3 (1.8-7.7); BASOPHIL # 0.1 TH/MM3 (0-0.2); BASOPHIL % 0.8 % (0.0-2.0); EOSINOPHIL # 0.2 TH/MM3 (0-0.4); EOSINOPHIL % 2.3 % (0.0-4.0); HEMATOCRIT 37.8 % (39.0-51.0); HEMOGLOBIN 12.8 GM/DL (13.0-17.0); LYMPH % 8.6 % (9.0-44.0); LYMPHOCYTE # 0.6 TH/MM3 (1.0-4.8); MEAN CELL VOLUME 85.9 FL (80.0-100.0); MEAN CORPUSCULAR HEMOGLOBIN 29.1 PG (27.0-34.0); MEAN CORPUSCULAR HGB CONC 33.9 % (32.0-36.0); MEAN PLATELET VOLUME 6.7 FL (7.0-11.0); MONO % 7.9 % (0.0-8.0); MONOCYTE # 0.6 TH/MM3 (0-0.9); NEUT % 80.4 % (16.0-70.0); PLATELET COUNT 258 TH/MM3 (150-450); RED CELL DISTRIBUTION WIDTH 19.4 % (11.6-17.2); WHITE BLOOD COUNT 7.3 TH/MM3 (4.0-11.0)
[2018-01-09 14:29] LABS: INTERNATIONAL NORMALIZED RATIO 1.3 RATIO; PROTHROMBIN TIME - PATIENT 12.8 SEC (9.8-11.6)
[2018-01-09 14:37] LABS: ALBUMIN 2.9 GM/DL (3.4-5.0); ALT (GPT) 26 U/L (12-78); AST (GOT) 23 U/L (15-37); BICARBONATE 24.4 MEQ/L (21.0-32.0); BLOOD UREA NITROGEN 47 MG/DL (7-18); CALCIUM 8.6 MG/DL (8.5-10.1); CHLORIDE 106 MEQ/L (98-107); CREATININE 6.49 MG/DL (0.60-1.30); GLOMERULAR FILTRATION RATE 9 ML/MIN (>89); GLUCOSE,RANDOM 56 MG/DL (74-106); SODIUM (NA) 138 MEQ/L (136-145)
[2018-01-09 14:39] LABS: ALKALINE PHOSPHATASE 206 U/L (45-117); TOTAL BILIRUBIN ADULT 0.6 MG/DL (0.2-1.0)
== END 2018-01-09 16:52 ==
LOC: NEPC 11:36
DX: R19.7 Diarrhea, unspecified (principal); F41.9 Anxiety disorder, unspecified; F32.9 Major depressive disorder, single episode, unspecified; I13.2 Hypertensive heart and chronic kidney disease with heart failure and with stage 5 chronic kidney disease, or end stage renal disease; N18.6 End stage renal disease; Z99.2 Dependence on renal dialysis; Z86.73 Personal history of transient ischemic attack (TIA), and cerebral infarction without residual deficits
CPT/HCPCS: 80053; 85025; 85610; 85730; 87493; 87506; 99283

== ENCOUNTER 2018-01-30 17:58 | Inpatient (IN) | payer MEDICARE ==
[~2018-01-30] VITALS: Ht 172.7 cm; Wt 72.8 kg
[2018-01-30 18:07] VITALS: BP 131/72; PULSE 73; RESP 18; TEMP 97.4; O2SAT 99
[2018-01-30] MEDS ORDERED: DEXTROSE 50% IN WATER 50 ML SYRINGE ONE (18:09)
[2018-01-30] MEDS ORDERED: DEXTROSE 50% IN WATER 50 ML SYRINGE IV PUSH ONE (18:15)
[2018-01-30] MEDS ORDERED: SODIUM CHLORIDE 0.9% FLUSH 10 ML FLUSH IVF PRN (18:15)
[2018-01-30 18:20] VITALS: PULSE 72; RESP 16; O2SAT 100
[2018-01-30 18:24] LABS: AUTOMATED NEUTROPHIL # 5.8 TH/MM3 (1.8-7.7); BASOPHIL % 0.4 % (0.0-2.0); EOSINOPHIL # 0.1 TH/MM3 (0-0.4); EOSINOPHIL % 0.8 % (0.0-4.0); HEMATOCRIT 36.8 % (39.0-51.0); HEMOGLOBIN 12.5 GM/DL (13.0-17.0); LYMPH % 5.8 % (9.0-44.0); LYMPHOCYTE # 0.4 TH/MM3 (1.0-4.8); MEAN CELL VOLUME 86.4 FL (80.0-100.0); MEAN CORPUSCULAR HEMOGLOBIN 29.4 PG (27.0-34.0); MEAN PLATELET VOLUME 6.5 FL (7.0-11.0); MONO % 8.8 % (0.0-8.0); MONOCYTE # 0.6 TH/MM3 (0-0.9); NEUT % 84.2 % (16.0-70.0); PLATELET COUNT 197 TH/MM3 (150-450); RED BLOOD COUNT 4.26 MIL/MM3 (4.50-5.90); RED CELL DISTRIBUTION WIDTH 19.8 % (11.6-17.2); WHITE BLOOD COUNT 6.9 TH/MM3 (4.0-11.0)
--- NOTE | 2018-01-30 18:37 | PD ---
HPI Chief Complaint: Abnormal Results Time Seen by Provider: 18:13 Travel History International Travel<30 days: No Contact w/Intl Traveler<30days: No Traveled to known affect area: No History of Present Illness HPI Patient is a 2-year-old male who presents the emergency room for evaluation of hypoglycemia. As per EMS, patient lives in assisted living facility. Reports that he has end-stage renal disease and does receive dialysis every Mondays, Wednesdays and Fridays. Patient was noted to appear lethargic today around 5 PM , EMS was called and his blood sugar was checked and it was 39. Patient was given 25 mL of D10. They reported that patient's repeat blood sugar was 109. Patient reports that he was sitting at the dining room eating dinner - reports that he only had a vegetable soup. Patient reports that he does not have history of diabetes, reports that he has been feeling fine all day. Patient with no chest pain or shortness of breath, patient with no complaints. PFSH Past Medical History Hx Anticoagulant Therapy: Yes (On Coumadin) Arthritis: Yes (bilateral hips) Asthma: No Atrial Fibrillation: Yes Blood Disorders: No Anxiety: Yes Depression: Yes Heart Rhythm Problems: Yes Cancer: No Cardiovascular Problems: Yes (chf, afib) Congestive Heart Failure: Yes Cerebrovascular Accident: Yes Dementia: Yes Diabetes: No Dialysis: Yes (MWF) Diminished Hearing: No Glaucoma: No Genitourinary: Yes (On dialysis) Hypertension: Yes Implanted Vascular Access Dvce: Yes (R ANTERIOR CHEST) Medical other: Yes (dementia) Neurologic: Yes Psychiatric: Yes Respiratory: Yes (When in fluid overload from renal failure) Immunizations Current: Yes Myocardial Infarction: Yes Renal Failure: Yes (on HD MWF) Seizures: No Tetanus Vaccination: < 5 Years Past Surgical History Arteriovenous Shunt: Yes (Left forearm; AV FISTULA) Body Medical Devices: Left AV fistula Other Surgery: Yes (Lt upper arm fistula, r shoulder surgery, ) Social History Alcohol Use: Yes (1 beer every 6 months) Tobacco Use: No (never) Substance Use: No Allergies-Medications (Allergen,Severity, Reaction): Coded Allergies: bee venom protein (honey bee) (Unverified Allergy, Severe, Anaphylaxis, ) *MDRO Multi-Drug Resistant Organism (Verified Adverse Reaction, Unknown, ) MRSA (leg/groin abscess) - 2006 *MRSA PCR negative 11/03/15 & 11/05/15. Pt does not require isolation for hx of MDRO prior to 11/05/15.* Uncoded Allergies: Contac cold medicine (Allergy, Severe, Hives, 01/08/17) allergy Reported Meds & Prescriptions Reported Meds & Active Scripts Active [place] (Hydrocodone-Acetaminophen) 5 Mg-325 Mg Tab 1 Tab PO Q6H PRN Sensipar (Cinacalcet) 30 Mg Tab 60 Mg PO AC DINNER Renvela (Sevelamer Carbonate) 800 Mg Tab 2,400 Mg PO TIDAC Reported Warfarin 3 Mg Tab 3 Mg PO DAILY Melatonin 5 Mg Tab 6 Mg PO HS Metoprolol Tartrate 25 Mg Tab 25 Mg PO BID Zofran (Ondansetron HCl) 4 Mg Tab 4 Mg PO Q8HR PRN Diphenhydramine (Diphenhydramine HCl) 25 Mg Cap 25 Mg PO Q12H PRN Jennifer-Phani (B-Complex W/ C & Folic Acid) 1 Tab 1 Tab PO DAILY Diltiazem ER 12 HR (Diltiazem HCl) 120 Mg Caper 240 Mg PO DAILY Citalopram (Citalopram Hydrobromide) 20 Mg Tab 30 Mg PO DAILY Review of Systems General / Constitutional: No: Fever Eyes: No: Visual changes HENT: No: Headaches Cardiovascular: No: Chest Pain or Discomfort Respiratory: No: Shortness of Breath Gastrointestinal: No: Abdominal Pain Genitourinary: No: Dysuria Musculoskeletal: No: Pain Skin: No Rash Neurologic: No: Weakness Psychiatric: No: Depression Endocrine: No: Polydipsia Hematologic/Lymphatic: No: Easy Bruising Physical Exam Narrative GENERAL: NAD SKIN: Focused skin assessment warm/dry. HEAD: Atraumatic. Normocephalic. EYES: Pupils equal and round. No scleral icterus. No injection or drainage. ENT: No nasal bleeding or discharge. Mucous membranes pink and moist. NECK: Trachea midline. No JVD. CARDIOVASCULAR: Regular rate and rhythm. No murmur appreciated. RESPIRATORY: No accessory muscle use. Clear to auscultation. Breath sounds equal bilaterally. GASTROINTESTINAL: Abdomen soft, non-tender, nondistended. Hepatic and splenic margins not palpable. MUSCULOSKELETAL: No obvious deformities. No clubbing. No cyanosis. No edema. Patient with left sided av fistula NEUROLOGICAL: Awake and alert. No obvious cranial nerve deficits. Motor grossly within normal limits. Normal speech. PSYCHIATRIC: Appropriate mood and affect; insight and judgment normal. Data Data Last Documented VS Vital Signs Date Time Temp Pulse Resp B/P (MAP) Pulse Ox O2 Delivery O2 Flow Rate FiO2 01/30/18 18:20 72 16 100 01/30/18 18:07 97.4 131/72 (91) Orders Orders Dextrose 50% In Bess (Syr) Inj (D50w (Syr (01/30/18 18:09) Diet Regular Basic (01/30/18 Dinner) Complete Blood Count With Diff (01/30/18 18:13) Comprehensive Metabolic Panel (01/30/18 18:13) Magnesium (Mg) (01/30/18 18:13) Urinalysis - C+S If Indicated (01/30/18 18:13) Blood Glucose (01/30/18 18:13) Blood Glucose (01/30/18 18:43) Blood Glucose (01/30/18 18:13) Blood Glucose (01/30/18 19:13) Ecg Monitoring (01/30/18 18:13) Iv Access Insert/Monitor (01/30/18 18:13) Oximetry (01/30/18 18:13) Sodium Chloride 0.9% Flush (Ns Flush) (01/30/18 18:15) Dextrose 50% In Bess (Syr) Inj (D50w (Syr (01/30/18 18:15) Labs Laboratory Tests Test 01/30/18 18:15 White Blood Count 6.9 TH/MM3 Red Blood Count 4.26 MIL/MM3 Hemoglobin 12.5 GM/DL Hematocrit 36.8 % Mean Corpuscular Volume 86.4 FL Mean Corpuscular Hemoglobin 29.4 PG Mean Corpuscular Hemoglobin Concent 34.0 % Red Cell Distribution Width 19.8 % Platelet Count 197 TH/MM3 Mean Platelet Volume 6.5 FL Neutrophils (%) (Auto) 84.2 % Lymphocytes (%) (Auto) 5.8 % Monocytes (%) (Auto) 8.8 % Eosinophils (%) (Auto) 0.8 % Basophils (%) (Auto) 0.4 % Neutrophils # (Auto) 5.8 TH/MM3 Lymphocytes # (Auto) 0.4 TH/MM3 Monocytes # (Auto) 0.6 TH/MM3 Eosinophils # (Auto) 0.1 TH/MM3 Basophils # (Auto) 0.0 TH/MM3 CBC Comment DIFF FINAL Differential Comment MDM Medical Decision Making Medical Screen Exam Complete: Yes Emergency Medical Condition: Yes Medical Record Reviewed: Yes Interpretation(s) Vital Signs Date Time Temp Pulse Resp B/P (MAP) Pulse Ox O2 Delivery O2 Flow Rate FiO2 01/30/18 18:20 72 16 100 01/30/18 18:07 97.4 73 18 131/72 (91) 99 Differential Diagnosis electrolyte abnormality, infection, medication administration error Narrative Course During the course of the patients emergency department visit, the patients history, examination, and differential diagnosis were reviewed with the patient. The patient was placed on a cardiac care nurse with oximetry and frequent blood pressure monitoring. The patient had an IV access obtained and blood work sent for analysis. The patient was initially provided D50 and meal Elena Wilkins DO January 30, 2018 18:37
[2018-01-30 18:39] LABS: ALBUMIN 2.8 GM/DL (3.4-5.0); AST (GOT) 14 U/L (15-37); BICARBONATE 21.8 MEQ/L (21.0-32.0); BLOOD UREA NITROGEN 59 MG/DL (7-18); CHLORIDE 105 MEQ/L (98-107); CREATININE 7.12 MG/DL (0.60-1.30); GLOMERULAR FILTRATION RATE 8 ML/MIN (>89); GLUCOSE,RANDOM 101 MG/DL (74-106); MAGNESIUM 2.1 MG/DL (1.5-2.5); SODIUM (NA) 138 MEQ/L (136-145)
[2018-01-30 18:40] LABS: ALT (GPT) 23 U/L (12-78)
[2018-01-30 18:42] LABS: ALKALINE PHOSPHATASE 198 U/L (45-117); TOTAL BILIRUBIN ADULT 0.4 MG/DL (0.2-1.0); TOTAL PROTEIN 6.8 GM/DL (6.4-8.2)
[2018-01-30] MEDS ORDERED: LOPE2CAP PO (18:58)
[2018-01-30] MEDS ORDERED: CLOB0.0513 (18:58)
[2018-01-30] MEDS ORDERED: MELA3TAB15 (18:58)
[2018-01-30] MEDS ORDERED: NON-325T2 PO (18:58)
[2018-01-30] MEDS ORDERED: FLUO.05%ST TOPICAL (18:58)
[2018-01-30] MEDS ORDERED: CITA10TA4 PO (18:58)
[2018-01-30] MEDS ORDERED: FERR1TAB16 PO (18:58)
--- NOTE | 2018-01-30 19:07 | PD ---
Physical Exam Narrative General: The patient is a well-developed well-nourished male, slightly diaphoretic on my arrival. The patient had just had his blood sugar checked and it was again down to 24. Another amp of D50 was provided Head and Neck exam: Head is normocephalic atraumatic. Eyes: EOMI, pupils are equal round and reactive to light. Nose: Midline septum with pink mucous membranes Mouth: Dentition unremarkable. Moist mucus membranes. Posterior oropharynx is not erythematous. No tonsillar hypertrophy. Uvula midline. Airway patent. Neck: No palpable lymphadenopathy. No nuchal rigidity. No thyromegaly. Cardiovascular: Irregularly irregular with rate control and a 2/6 systolic murmur audible. No gallops or rubs. Lungs: Clear to auscultation bilaterally. No wheezes, rhonchi, or rales. Abdomen: Soft, without tenderness to palpation in all 4 quadrants of the abdomen. No guarding, rebound, or rigidity. Normal bowel sounds are audible. No tenderness on palpation of McBurney's point. Extremities: No clubbing, cyanosis, or edema. 2+ pulses in all 4 extremities. No calf tenderness on palpation. The patient has a left upper extremity fistula noted with a palpable thrill. This is above the elbow. The patient is also noted to have a bandage in place along the left forearm. He reports having an injury there 2 weeks ago. He reports that he has an abrasion that has been being provided dressing changes per Neurologic Exam: Grossly nonfocal. Data Data Last Documented VS Vital Signs Date Time Temp Pulse Resp B/P (MAP) Pulse Ox O2 Delivery O2 Flow Rate FiO2 01/30/18 19:09 93 Room Air 01/30/18 19:09 69 16 109/69 (82) 2.00 01/30/18 18:07 97.4 Orders Orders Dextrose 50% In Bess (Syr) Inj (D50w (Syr (01/30/18 18:09) Diet Regular Basic (01/30/18 Dinner) Complete Blood Count With Diff (01/30/18 18:13) Comprehensive Metabolic Panel (01/30/18 18:13) Magnesium (Mg) (01/30/18 18:13) Urinalysis - C+S If Indicated (01/30/18 18:13) Blood Glucose (01/30/18 18:13) Blood Glucose (01/30/18 18:43) Blood Glucose (01/30/18 18:13) Blood Glucose (01/30/18 19:13) Ecg Monitoring (01/30/18 18:13) Iv Access Insert/Monitor (01/30/18 18:13) Oximetry (01/30/18 18:13) Sodium Chloride 0.9% Flush (Ns Flush) (01/30/18 18:15) Dextrose 50% In Bess (Syr) Inj (D50w (Syr (01/30/18 18:15) Dextrose 10% Inj (D... W/Sodium Chloride (01/30/18 20:00) Electrocardiogram (01/30/18 18:10) Diet As Tolerated (01/30/18 19:32) Bedside Glucose Q2H (01/30/18 19:51) Blood Glucose Goal (Criteria) (01/30/18 19:51) Hypoglycemia 70 Mg/Dl Or < (01/30/18 19:51) Notify Dr: Other (01/30/18 19:51) Dextrose 50% In Bess (Vial) Inj (D50w (Vi (01/30/18 20:00) Glucagon Inj (Glucagon Inj) (01/30/18 20:00) Consult Assistant Service Manager (01/30/18 ) Hemoglobin (Hgb) A1c (01/31/18 06:00) Prothrombin Time / Inr (Pt) (01/30/18 19:51) Vital Signs (Adult) Q4H (01/30/18 19:51) Activity Oob Ad Gaby (01/30/18 19:51) Intake + Output DUNCAN.QSHIFT (01/30/18 19:51) Diet 1800 Ada Cons Carb (01/31/18 Breakfast) Sodium Chloride 0.9% Flush (Ns Flush) (01/30/18 20:00) Sodium Chloride 0.9% Flush (Ns Flush) (01/30/18 21:00) Ondansetron Inj (Zofran Inj) (01/30/18 20:00) Comprehensive Metabolic Panel (01/31/18 06:00) Complete Blood Count With Diff (01/31/18 06:00) Prothrombin Time / Inr (Pt) (01/31/18 06:00) Case Management Consult (01/30/18 19:51) Acetaminophen (Tylenol) (01/30/18 20:00) Acetamin-Hydrocod 325-5 Mg (Cisco 5-325 (01/30/18 20:00) Acetamin-Hydrocod 325-10 Mg (Cisco 10-32 (01/30/18 20:00) Docusate Sodium-Senna (Aparna-Colace) (01/30/18 21:00) Magnesium Hydroxide Liq (Milk Of Magnesi (01/30/18 20:00) Sennosides (Senokot) (01/30/18 20:00) Bisacodyl Supp (Dulcolax Supp) (01/30/18 20:00) Lactulose Liq (Lactulose Liq) (01/30/18 20:00) Admit To Inpatient (01/30/18 ) Inpatient Certification (01/30/18 ) Cinacalcet (Sensipar) (01/31/18 16:00) Citalopram (Celexa) (01/31/18 09:00) Metoprolol Tartrate (Lopressor) (01/30/18 21:00) Sevelamer (Renvela) (01/31/18 08:00) Warfarin (Coumadin) (01/31/18 09:00) Admit Order (Ed Use Only) (01/30/18 20:04) Labs Laboratory Tests Test 01/30/18 18:15 01/30/18 20:01 White Blood Count 6.9 TH/MM3 Red Blood Count 4.26 MIL/MM3 Hemoglobin 12.5 GM/DL Hematocrit 36.8 % Mean Corpuscular Volume 86.4 FL Mean Corpuscular Hemoglobin 29.4 PG Mean Corpuscular Hemoglobin Concent 34.0 % Red Cell Distribution Width 19.8 % Platelet Count 197 TH/MM3 Mean Platelet Volume 6.5 FL Neutrophils (%) (Auto) 84.2 % Lymphocytes (%) (Auto) 5.8 % Monocytes (%) (Auto) 8.8 % Eosinophils (%) (Auto) 0.8 % Basophils (%) (Auto) 0.4 % Neutrophils # (Auto) 5.8 TH/MM3 Lymphocytes # (Auto) 0.4 TH/MM3 Monocytes # (Auto) 0.6 TH/MM3 Eosinophils # (Auto) 0.1 TH/MM3 Basophils # (Auto) 0.0 TH/MM3 CBC Comment DIFF FINAL Differential Comment Blood Urea Nitrogen 59 MG/DL Creatinine 7.12 MG/DL Random Glucose 101 MG/DL Total Protein 6.8 GM/DL Albumin 2.8 GM/DL Calcium Level 9.0 MG/DL Magnesium Level 2.1 MG/DL Alkaline Phosphatase 198 U/L Aspartate Amino Transf (AST/SGOT) 14 U/L Alanine Aminotransferase (ALT/SGPT) 23 U/L Total Bilirubin 0.4 MG/DL Sodium Level 138 MEQ/L Potassium Level 3.5 MEQ/L Chloride Level 105 MEQ/L Carbon Dioxide Level 21.8 MEQ/L Anion Gap 11 MEQ/L Estimat Glomerular Filtration Rate 8 ML/MIN Prothrombin Time 12.5 SEC Prothromb Time International Ratio 1.2 [facility] Medical Record Reviewed: Yes Supervised Visit with MESFIN: No Narrative Course During the course of the patient's emergency department visit, the patient's history, examination, and differential diagnosis were reviewed with the patient. The patient was placed on a cardiac sonographer with oximetry and frequent blood pressure monitoring. The patient had IV access obtained and blood work sent for analysis. The patient's case was checked out to me by . Please see her complete history and physical. The patient's case was checked out to me at the conclusion of her shift. The patient arrives with a history of lethargy, altered mentation with hypoglycemia. The patient has been persistently hypoglycemic on 3 separate occasions in spite of treatment with dextrose and oral supplementation. The patient denies any history of diabetes. He denies being on any diabetic medications. He is on hemodialysis for renal failure on Wednesday, Wednesday, Wednesday. He last had his dialysis on Wednesday. The only other findings on review of systems are the fact that the patient reports having recent problem with fatigue. The patient also reports having recent difficulties with diarrhea over the last few months. He is unsure whether he has ever had a colonoscopy. He reports that he has diarrhea 3-4 times per day. The patient's laboratory studies were reviewed and remarkable for a white count of 6.9, hemoglobin 12.5, platelets 197 with 84.2 neutrophils, CMP is remarkable for BUN of 59, creatinine 7.12, however the patient is on hemodialysis with electrolytes that are otherwise within normal limits, AST 14, alk phos 198, albumin 2.8. INR 1.2 The patient had a recurrence of his hypoglycemia again and was started on a D10 drip. The patient will be admitted to the hospital for persistent hypoglycemia. The patient's results were discussed with the patient, including the plan of care. I explained that further testing and/ or monitoring is indicated based on the patient's history, examination, and/ or laboratory findings. Therefore, I recommended admission for additional evaluation. The patient expressed understanding and was agreeable with this plan. The patient was admitted to the hospital in guarded condition and sent to a bed under the care of the [facility]. Physician Communication Physician Communication The patient's case including history, pertinent physical examination findings, and laboratory studies were discussed with Dr. Goodman. It was agreed that the patient would be admitted to the [facility]. Diagnosis Primary Impression: Hypoglycemia Admitting Information Admitting Physician Requests: Observation Moira Alicea MD January 30, 2018 19:07
[2018-01-30 19:09] VITALS: BP 109/69; PULSE 69; RESP 16; O2SAT 93; O2SAT 99
--- NOTE | 2018-01-30 19:59 | HHI.HP ---
[facility] Suhas [facility]oper M.D. Admission Diagnosis Diagnoses: (1) Hypoglycemia Diagnosis: Principal (2) ESRD on hemodialysis Diagnosis: Principal (3) A-fib Diagnosis: Principal Travel History International Travel<30 Days: No Contact w/Intl Traveler <30 Da: No Traveled to Known Affected Are: No History of Present Illness This is a 62-year-old male with a PMH of HTN, A. fib on Coumadin, Anxiety, Depression, CHF (Echo 12/28/17 w/ EF 45-50%), h/o CVA and ESRD on HD M/W/ who was [facility] for [facility]cemia. Per report, pt noted to be lethargic at [facility], BS per EMS 39, s/p D50. While in ER had recurrent episode of hypoglycemia w/ BS 29, s/p additional D50, now on D10. No h/o DM, no recent fever, chills, nausea/vomiting or diarrhea. No obvious sepsis/infection. Last Hgb A1c 09/05/14 was 5.4. On arrival, BP 131/72, HR 73, O2 sat 99% on RA, Afebrile. CBC essentially unremarkable. Chemistry stable. Creatinine 7.12, previously 6.49 on 01/09/2018. UA pending. Review of Systems Except as stated in HPI: all other systems reviewed are Neg ROS: 14 point review of systems otherwise negative. Past Family Social History Past Medical History PMH: HTN, A. fib on Coumadin, Anxiety, Depression, CHF (Echo 12/28/17 w/ EF 45-50 %), h/o CVA and ESRD on HD M/W/F Past Surgical History PAST SURGICAL HISTORY: LUE AV Fistula, Right Shoulder Surgery Allergies: Coded Allergies: bee venom protein (honey bee) (Unverified Allergy, Severe, Anaphylaxis, ) *MDRO Multi-Drug Resistant Organism (Verified Adverse Reaction, Unknown, ) MRSA (leg/groin abscess) - 2006 *MRSA PCR negative 11/03/15 & 11/05/15. Pt does not require isolation for hx of MDRO prior to 11/05/15.* Uncoded Allergies: Contac cold medicine (Allergy, Severe, Hives, 01/08/17) allergy Family History PAST FAMILY HISTORY: Reviewed. No h/o DM or CAD Social History PAST SOCIAL HISTORY: Occasional alcohol. Negative for tobacco or drugs. Physical Exam Vital Signs Vital Signs Date Time Temp Pulse Resp B/P (MAP) Pulse Ox O2 Delivery O2 Flow Rate FiO2 01/30/18 19:09 93 Room Air 01/30/18 19:09 69 16 109/69 (82) 99 Nasal Cannula 2.00 01/30/18 18:20 72 16 100 01/30/18 18:07 97.4 73 18 131/72 (91) 99 Physical Exam PE: GENERAL: Middle-aged white male in no acute distress. HEENT: PERRLA, EOMI. No scleral icterus or conjunctival pallor. No lid lag or facial droop. CARDIOVASCULAR: Regular rate and rhythm. No obvious murmurs to auscultation. No chest tenderness to palpation. RESPIRATORY: No obvious rhonchi or wheezing. Clear to auscultation. Breath sounds equal bilaterally. GASTROINTESTINAL: Abdomen soft, non-tender, nondistended. BS normal. MUSCULOSKELETAL: Extremities without clubbing, cyanosis, or edema. No obvious deformities. LUE AV Fistula NEUROLOGICAL: Awake, alert and oriented x4. No focal neurologic deficits. Moving both upper and lower extremities spontaneously. Laboratory Laboratory Tests Test 01/30/18 18:15 White Blood Count 6.9 Red Blood Count 4.26 Hemoglobin 12.5 Hematocrit 36.8 Mean Corpuscular Volume 86.4 Mean Corpuscular Hemoglobin 29.4 Mean Corpuscular Hemoglobin Concent 34.0 Red Cell Distribution Width 19.8 Platelet Count 197 Mean Platelet Volume 6.5 Neutrophils (%) (Auto) 84.2 Lymphocytes (%) (Auto) 5.8 Monocytes (%) (Auto) 8.8 Eosinophils (%) (Auto) 0.8 Basophils (%) (Auto) 0.4 Neutrophils # (Auto) 5.8 Lymphocytes # (Auto) 0.4 Monocytes # (Auto) 0.6 Eosinophils # (Auto) 0.1 Basophils # (Auto) 0.0 CBC Comment DIFF FINAL Differential Comment Blood Urea Nitrogen 59 Creatinine 7.12 Random Glucose 101 Total Protein 6.8 Albumin 2.8 Calcium Level 9.0 Magnesium Level 2.1 Alkaline Phosphatase 198 Aspartate Amino Transf (AST/SGOT) 14 Alanine Aminotransferase (ALT/SGPT) 23 Total Bilirubin 0.4 Sodium Level 138 Potassium Level 3.5 Chloride Level 105 Carbon Dioxide Level 21.8 Anion Gap 11 Estimat Glomerular Filtration Rate 8 Result Diagram: 01/30/18181401/30/181814 Caprini VTE Risk Assessment Caprini VTE Risk Assessment: No/Low Risk (score <= 1) Caprini Risk Assessment Model Point Value = 1 Point Value = 2 Point Value = 3 Point Value = 5 Age 41-60 Minor surgery BMI > 25 kg/m2 Swollen legs Varicose veins or History of unexplained or recurrent spontaneous Oral contraceptives or hormone replacement Sepsis (< 1 month) Serious lung disease, including pneumonia (< 1 month) Abnormal pulmonary function Acute myocardial infarction Congestive heart failure (< 1 month) History of inflammatory bowel disease Medical patient at bed rest Age 61-74 Arthroscopic surgery Major open surgery (> 45 min) Laparoscopic surgery (> 45 min) Malignancy Confined to bed (> 72 hours) Immobilizing plaster cast Central venous access Age >= 75 History of VTE Family history of VTE Factor V Leiden Prothrombin [id number] Lupus anticoagulant Anticardiolipin antibodies Elevated serum homocysteine Heparin-induced thrombocytopenia Other congenital or acquired thrombophilia Stroke (< 1 month) Elective arthroplasty Hip, pelvis, or leg fracture Acute spinal cord injury (< 1 month) Prophylaxis Regimen Total Risk Factor Score Risk Level Prophylaxis Regimen 0-1 Low Early ambulation 2 Moderate Order ONE of the following: *Sequential Compression Device (SCD) *Heparin 5000 units SQ BID 3-4 Higher Order ONE of the following medications: *Heparin 5000 units SQ TID *Enoxaparin/Lovenox 40 mg SQ daily (WT < 150 kg, CrCl > 30 mL/min) *Enoxaparin/Lovenox 30 mg SQ daily (WT < 150 kg, CrCl > 10-29 mL/min) *Enoxaparin/Lovenox 30 mg SQ BID (WT < 150 kg, CrCl > 30 mL/min) AND/OR *Sequential Compression Device (SCD) 5 or more Highest Order ONE of the following medications: *Heparin 5000 units SQ TID (Preferred with Epidurals) *Enoxaparin/Lovenox 40 mg SQ daily (WT < 150 kg, CrCl > 30 mL/min) *Enoxaparin/Lovenox 30 mg SQ daily (WT < 150 kg, CrCl > 10-29 mL/min) *Enoxaparin/Lovenox 30 mg SQ BID (WT < 150 kg, CrCl > 30 mL/min) AND *Sequential Compression Device (SCD) Assessment and Plan Problem List: (1) Hypoglycemia ICD Code: E16.2 - Hypoglycemia, unspecified Status: Acute (2) ESRD on hemodialysis ICD Code: N18.6 - End-stage renal disease on hemodialysis; Z99.2 - Dependence on renal dialysis Status: Chronic (3) A-fib ICD Code: I48.91 - Atrial fibrillation Status: Chronic Assessment and Plan A/P: 1. Hypoglycemia: BS 39, s/p D50 w/ recurrent hypoglycemia in ER of 29, asymptomatic at this time however noted to be [facility]argic at [facility]. No h/o DM, last Hgb A1c 12/26/13 5.4. Continue D10, Accu-Cheks q2h, close observation. No evidence of infection/sepsis. Check Hgb A1c. Consult Card Stripper as needed. 2. ESRD on HD: M/W/F, follows w/ Dr. Roper as outpatient, last HD on Wednesday w / no complication. Will consult Nephro to resume HD. 3. A-fib: Chronic. On Coumadin, will check INR, resume Coumadin for INR 2-3. 4. DVT Prophylaxis: Resume Coumadin if therapeutic 5. Social work for d/c planning as needed. 6. Case discussed w/ ER physician at length, labs/records/imaging reviewed by me. Physician Certification 2 Midnight Certification Type: Admission for Inpatient Services Order for Inpatient Services The services are ordered in accordance with Medicare regulations or non- Medicare payer requirements, as applicable. In the case of services not specified as inpatient-only, they are appropriately provided as inpatient services in accordance with the 2-midnight benchmark. Estimated LOS (days): 2 days is the estimated time the patient will need to remain in the hospital, assuming treatment plan goals are met and no additional complications. Post-Hospital Plan: Not yet determined Junie Goodman MD January 30, 2018 19:59
[2018-01-30] MEDS ORDERED: ACETAMINOPHEN/HYDROcodone 325 MG/10 MG TAB PO PRN (20:00)
[2018-01-30] MEDS ORDERED: ACETAMINOPHEN/HYDROcodone 325 MG/5 MG TAB PO PRN (20:00)
[2018-01-30] MEDS ORDERED: GLUCAGON 1 MG/ML VIAL OTHER PRN (20:00)
[2018-01-30] MEDS ORDERED: SODIUM CHLORIDE 23.4% INJ 154 MEQ in DEXTROSE 10% INJ 1,000 ML IV SCH (20:00)
[2018-01-30] MEDS ORDERED: ACETAMINOPHEN 325 MG TAB PO PRN (20:00)
[2018-01-30] MEDS ORDERED: SENNOSIDES 8.6 MG TAB PO PRN (20:00)
[2018-01-30] MEDS ORDERED: MAGNESIUM HYDROXIDE SUSP 30 ML CUP PO PRN (20:00)
[2018-01-30] MEDS ORDERED: LACTULOSE SYRUP 20 GM/30 ML CUP PO PRN (20:00)
[2018-01-30] MEDS ORDERED: SODIUM CHLORIDE 0.9% FLUSH 10 ML FLUSH IV FLUSH PRN (20:00)
[2018-01-30] MEDS ORDERED: BISACODYL 10 MG SUPP RECTAL PRN (20:00)
[2018-01-30] MEDS ORDERED: PILL SPLITTER OTHER PRN (20:15)
[2018-01-30 20:30] LABS: INTERNATIONAL NORMALIZED RATIO 1.2 RATIO; PROTHROMBIN TIME - PATIENT 12.5 SEC (9.8-11.6)
[2018-01-30 21:00] VITALS: BP 109/71; PULSE 62; RESP 16; O2SAT 98
[2018-01-30] MEDS: DOCUSATE SODIUM 50 MG/SENNA 8.6 MG TAB PO SCH (21:00)
[2018-01-30] MEDS: SODIUM CHLORIDE 0.9% FLUSH 10 ML FLUSH IV FLUSH SCH (21:00)
[2018-01-30 21:28] VITALS: BP 117/67; PULSE 78; RESP 16; TEMP 98.2; O2SAT 100
[2018-01-30] MEDS: DEXTROSE 50% IN WATER 50 ML VIAL(D50) IV PUSH PRN (22:08)
[2018-01-30] MEDS: METOPROLOL TARTRATE 25 MG TAB PO SCH (23:12)
[2018-01-31] VITALS (16 sets, daily range): BP systolic 113–143; BP diastolic 66–87; PULSE 83–99; RESP 16–20; TEMP 97.2–99; O2SAT 94–99
[2018-01-31] MEDS ORDERED: DEXTROSE 50% IN WATER 50 ML SYRINGE IV PUSH ONE (00:45)
[2018-01-31] MEDS: DEXTROSE 50% IN WATER 50 ML VIAL(D50) IV PUSH PRN ×17 (03:46→16:45)
[2018-01-31] MEDS ORDERED: GLUCAGON 1 MG/ML VIAL IM PRN ×2 (04:00→07:00)
[2018-01-31] MEDS ORDERED: DEXTROSE 50% IN WATER 50 ML VIAL(D50) IV PUSH PRN ×2 (04:00→07:00)
[2018-01-31] MEDS ORDERED: ATROPINE SULFATE 1 MG/10 ML SYRINGE ONE (05:08)
[2018-01-31] MEDS ORDERED: EPINEPHrine HCL (1:10,000) 1 MG/10 ML SYRINGE ONE (05:08)
[2018-01-31] MEDS: SEVELAMER CARBONATE 800 MG TAB PO SCH ×4 (08:00→16:45)
[2018-01-31] MEDS: METOPROLOL TARTRATE 25 MG TAB PO SCH ×2 (08:11→20:26)
[2018-01-31] MEDS: CITALOPRAM HYDROBROMIDE 20 MG TAB PO SCH (08:11)
[2018-01-31] MEDS: DILTIAZEM-CD 240 MG CAP ER PO SCH (08:11)
[2018-01-31 08:50] LABS: AUTOMATED NEUTROPHIL # 6.8 TH/MM3 (1.8-7.7); BASOPHIL % 0.2 % (0.0-2.0); EOSINOPHIL # 0.1 TH/MM3 (0-0.4); EOSINOPHIL % 1.3 % (0.0-4.0); HEMATOCRIT 36.1 % (39.0-51.0); LYMPH % 5.7 % (9.0-44.0); LYMPHOCYTE # 0.5 TH/MM3 (1.0-4.8); MEAN CELL VOLUME 85.6 FL (80.0-100.0); MEAN CORPUSCULAR HEMOGLOBIN 28.4 PG (27.0-34.0); MEAN CORPUSCULAR HGB CONC 33.2 % (32.0-36.0); MEAN PLATELET VOLUME 6.7 FL (7.0-11.0); MONO % 8.1 % (0.0-8.0); MONOCYTE # 0.6 TH/MM3 (0-0.9); NEUT % 84.7 % (16.0-70.0); PLATELET COUNT 219 TH/MM3 (150-450); RED BLOOD COUNT 4.22 MIL/MM3 (4.50-5.90); RED CELL DISTRIBUTION WIDTH 19.7 % (11.6-17.2)
[2018-01-31 08:58] LABS: INTERNATIONAL NORMALIZED RATIO 1.2 RATIO; PROTHROMBIN TIME - PATIENT 12.4 SEC (9.8-11.6)
[2018-01-31] MEDS ORDERED: WARFARIN SOD 3 MG TAB PO SCH (09:00)
[2018-01-31] MEDS: SODIUM CHLORIDE 0.9% FLUSH 10 ML FLUSH IV FLUSH SCH ×2 (09:00→20:27)
[2018-01-31] MEDS: DOCUSATE SODIUM 50 MG/SENNA 8.6 MG TAB PO SCH ×2 (09:00→20:27)
[2018-01-31] MEDS ORDERED: DILTIAZEM 240 MG PO SCH (09:00)
--- NOTE | 2018-01-31 09:18 | HHI.PR ---
Subjective Remarks Follow-up hypoglycemia, end-stage renal disease. The patient has no complaints at this time. Denies chest pain, dyspnea, nausea, vomiting. Objective Vitals Vital Signs Date Time Temp Pulse Resp B/P (MAP) Pulse Ox O2 Delivery O2 Flow Rate FiO2 01/31/18 08:00 98.2 95 18 125/66 (85) 94 01/31/18 07:00 99 01/31/18 06:00 83 01/31/18 05:20 95 01/31/18 03:40 97.2 88 18 131/73 (92) 98 01/31/18 02:00 90 01/31/18 01:30 89 01/31/18 01:28 98.2 88 20 143/81 (101) 98 01/31/18 00:55 98.7 92 16 118/68 (85) 96 01/30/18 21:28 98.2 78 16 117/67 (84) 100 01/30/18 21:07 01/30/18 21:00 62 16 109/71 (84) 98 Nasal Cannula 2.00 01/30/18 19:09 93 Room Air 01/30/18 19:09 69 16 109/69 (82) 99 Nasal Cannula 2.00 01/30/18 18:20 72 16 100 01/30/18 18:07 97.4 73 18 131/72 (91) 99 I/O 01/30/18 01/30/18 01/30/18 01/31/18 01/31/18 01/31/18 07:00 15:00 23:00 07:00 15:00 23:00 Intake Total 100 ml Balance 100 ml Intake Oral 100 ml Result Diagram: 01/31/18 0730 01/30/18 1815 Objective Remarks General: No acute distress. Heart: Regular rate and rhythm. No murmur. Lungs: Clear to auscultation bilaterally. No wheezes, rales, or rhonchi. Breathing is nonlabored. Abdomen: Soft, nontender, nondistended. Extremities: No lower extremity edema. Psych: Alert and oriented. Neuro: Normal speech. No focal deficits noted. Procedures None Urinary Catheter: No Vascular Central Line Catheter: No A/P Problem List: (1) Hypoglycemia ICD Code: E16.2 - Hypoglycemia, unspecified Status: Acute (2) ESRD on hemodialysis ICD Code: N18.6 - End-stage renal disease on hemodialysis; Z99.2 - Dependence on renal dialysis Status: Chronic (3) A-fib ICD Code: I48.91 - Atrial fibrillation Status: Chronic Assessment and Plan 1. Hypoglycemia: Uncertain etiology. Glucose remains borderline low despite D10. He is asymptomatic. Endocrinology consult is pending. 2. End-stage renal disease on hemodialysis Wednesday/Wednesday/Wednesday. Nephrology consulted. Due for dialysis today. 3. Atrial fibrillation: Chronic. INR is subtherapeutic. Rate is controlled. 4. DVT prophylaxis: Coumadin. Hemanth Angeles MD January 31, 2018 09:18
[2018-01-31 09:27] LABS: ALBUMIN 2.8 GM/DL (3.4-5.0); ALKALINE PHOSPHATASE 196 U/L (45-117); ALT (GPT) 22 U/L (12-78); AST (GOT) 16 U/L (15-37); BICARBONATE 21.9 MEQ/L (21.0-32.0); BLOOD UREA NITROGEN 65 MG/DL (7-18); CALCIUM 9.7 MG/DL (8.5-10.1); CHLORIDE 104 MEQ/L (98-107); CREATININE 7.49 MG/DL (0.60-1.30); GLOMERULAR FILTRATION RATE 7 ML/MIN (>89); SODIUM (NA) 140 MEQ/L (136-145); TOTAL BILIRUBIN ADULT 0.6 MG/DL (0.2-1.0); TOTAL PROTEIN 6.7 GM/DL (6.4-8.2)
[2018-01-31 09:30] LABS: GLUCOSE,RANDOM 45 MG/DL (74-106)
[2018-01-31] MEDS ORDERED: SODIUM CHLOR 0.9% 1000 ML INJ 1,000 ML IV PRN (09:58)
[2018-01-31] MEDS ORDERED: SODIUM CHLOR 0.9% 1000 ML INJ 1,000 ML OTHER PRN ×2 (09:58)
[2018-01-31] MEDS ORDERED: MANNITOL 12.5 GM/50 ML VIAL IV PRN (10:00)
[2018-01-31] MEDS ORDERED: cloNIDine HCL 0.1 MG TAB PO PRN (10:00)
[2018-01-31] MEDS ORDERED: GELATIN 12 MM/7 MM FOAM TOP PRN (10:00)
[2018-01-31] MEDS ORDERED: NITROGLYCERIN 0.4 MG SL 25 TABS/BTL SL PRN (10:00)
[2018-01-31] MEDS ORDERED: SODIUM CHLORIDE 0.9% FLUSH 10 ML FLUSH IV FLUSH PRN (10:00)
[2018-01-31] MEDS ORDERED: ACETAMINOPHEN 325 MG TAB PO PRN (10:00)
[2018-01-31] MEDS ORDERED: ALBUMIN 25% INJ 100 ML IV PRN (10:00)
[2018-01-31] MEDS ORDERED: diphenhydrAMINE HCL 25 MG CAP PO PRN (10:00)
[2018-01-31] MEDS: DEXTROSE 10% INJ 1,000 ML IV SCH (10:00)
[2018-01-31] MEDS ORDERED: ONDANSETRON HCL 4 MG/2 ML VIAL IV PUSH PRN (10:00)
[2018-01-31] MEDS ORDERED: HEPARIN SODIUM - IV 10,000 UNITS/10 ML VIAL IV FLUSH PRN (10:00)
[2018-01-31] MEDS ORDERED: HEPARIN SODIUM - IV 10,000 UNITS/10 ML VIAL PRN (10:00)
[2018-01-31] MEDS ORDERED: GENTAMICIN SULFATE 20 MG/2 ML VIAL OTHER PRN (10:00)
--- NOTE | 2018-01-31 10:03 | PD.CONS ---
HPI Service Nephrology Consult Requested By Reason for Consult ESRD Primary Care Physician Suhas Roper M.D. History of Present Illness 62 year old with history of ESRD on HD MWF admitted with hypoglycemia. Currently on D10. Needs dialysis today. Notes were reviewed. Has history of CHF , ESRD, atrial fibrillation, hypertension, anxiety. Review of Systems Constitutional: COMPLAINS OF: Fatigue, DENIES: Fever Cardiovascular: DENIES: Chest pain, Palpitations Gastrointestinal: COMPLAINS OF: Diarrhea, DENIES: Abdominal pain, Black stools Past Family Social History Allergies: Coded Allergies: bee venom protein (honey bee) (Unverified Allergy, Severe, Anaphylaxis, ) *MDRO Multi-Drug Resistant Organism (Verified Adverse Reaction, Unknown, ) MRSA (leg/groin abscess) - 2006 *MRSA PCR negative 11/03/15 & 11/05/15. Pt does not require isolation for hx of MDRO prior to 11/05/15.* Uncoded Allergies: Contac cold medicine (Allergy, Severe, Hives, 01/08/17) allergy Past Medical History ESRD CHF History of atrial fibrillation, on Coumadin. Hypertension Anxiety Reported Medications [place] (Hydrocodone-Acetaminophen) 5 Mg-325 Mg Tab 1 Tab PO Q6H PRN Sensipar (Cinacalcet) 30 Mg Tab 60 Mg PO AC DINNER Renvela (Sevelamer Carbonate) 800 Mg Tab 2,400 Mg PO TIDAC Reported Warfarin 3 Mg Tab 3 Mg PO DAILY Melatonin 5 Mg Tab 6 Mg PO HS Metoprolol Tartrate 25 Mg Tab 25 Mg PO BID Zofran (Ondansetron HCl) 4 Mg Tab 4 Mg PO Q8HR PRN Diphenhydramine (Diphenhydramine HCl) 25 Mg Cap 25 Mg PO Q12H PRN Jennifer-Phani (B-Complex W/ C & Folic Acid) 1 Tab 1 Tab PO DAILY Diltiazem ER 12 HR (Diltiazem HCl) 120 Mg Caper 240 Mg PO DAILY Citalopram (Citalopram Hydrobromide) 20 Mg Tab 30 Mg PO DAILY Active Ordered Medications Current Medications Medications (Trade) Dose Ordered Sig/Neeraj Route Start Time Stop Time Status Last Admin Sodium Chloride 154 meq/Dextrose 1,038.5 ml @ 50 mls/hr [id number] IV 01/30/18 20:00 01/30/18 20:17 (D50w (Vial) Inj) 50 ml UNSCH PRN IV PUSH 01/30/18 20:00 01/31/18 09:46 (Glucagon Inj) 1 mg UNSCH PRN OTHER 01/30/18 20:00 01/30/18 21:00 (NS Flush) 2 ml UNSCH PRN IV FLUSH 01/30/18 20:00 (NS Flush) 2 ml BID IV FLUSH 01/30/18 21:00 01/31/18 09:00 (Zofran Inj) 4 mg Q6H PRN IVP 01/30/18 20:00 (Tylenol) 650 mg Q6H PRN PO 01/30/18 20:00 ([place] 5-325 Mg) 1 tab Q4H PRN PO 01/30/18 20:00 ([place] 10-325 Mg) 1 tab Q4H PRN PO 01/30/18 20:00 (Aparna-Colace) 1 tab BID PO 01/30/18 21:00 (Milk Of Magnesia Liq) 30 ml Q12H PRN PO 01/30/18 20:00 (Senokot) 17.2 mg Q12H PRN PO 01/30/18 20:00 (Dulcolax Supp) 10 mg DAILY PRN RECTAL 01/30/18 20:00 (Lactulose Liq) 30 ml DAILY PRN PO 01/30/18 20:00 (Sensipar) 60 mg AC DINNER PO 01/31/18 16:00 (CeleXA) 30 mg DAILY PO 01/31/18 09:00 01/31/18 08:11 (Lopressor) 25 mg BID PO 01/30/18 21:00 01/31/18 08:11 (Renvela) 2,400 mg TIDAC PO 01/31/18 08:00 01/31/18 09:41 (Pill Splitter) 1 ea UNSCH PRN OTHER 01/30/18 20:15 (Cardizem Cd) 240 mg DAILY PO 01/31/18 09:00 01/31/18 08:11 (Coumadin) 3 mg DAILY@1600 PO 01/31/18 16:00 Family History reviewed, non contributory Social History No tobacco, occasional ETOH. No other drugs Physical Exam Vital Signs Vital Signs Date Time Temp Pulse Resp B/P (MAP) Pulse Ox O2 Delivery O2 Flow Rate FiO2 01/31/18 08:00 98.2 95 18 125/66 (85) 94 01/31/18 07:00 99 01/31/18 06:00 83 01/31/18 05:20 95 01/31/18 03:40 97.2 88 18 131/73 (92) 98 01/31/18 02:00 90 01/31/18 01:30 89 01/31/18 01:28 98.2 88 20 143/81 (101) 98 01/31/18 00:55 98.7 92 16 118/68 (85) 96 01/30/18 21:28 98.2 78 16 117/67 (84) 100 01/30/18 21:07 01/30/18 21:00 62 16 109/71 (84) 98 Nasal Cannula 2.00 01/30/18 19:09 93 Room Air 01/30/18 19:09 69 16 109/69 (82) 99 Nasal Cannula 2.00 01/30/18 18:20 72 16 100 01/30/18 18:07 97.4 73 18 131/72 (91) 99 Physical Exam GENERAL: patient is comfortable, alert and oriented. SKIN: Warm and dry. HEAD: Normocephalic. EYES: No scleral icterus. No injection or drainage. NECK: Supple, trachea midline. No JVD or lymphadenopathy. CARDIOVASCULAR: irregularly irregular, tachycardic. Patent AVF left arm. RESPIRATORY: Breath sounds equal bilaterally. No accessory muscle use. GASTROINTESTINAL: Abdomen soft, non-tender, nondistended. MUSCULOSKELETAL: No cyanosis, or edema. BACK: Nontender without obvious deformity. No CVA tenderness. Laboratory Laboratory Tests Test 01/30/18 18:15 01/30/18 20:01 01/31/18 07:30 White Blood Count 6.9 8.0 Red Blood Count 4.26 4.22 Hemoglobin 12.5 12.0 Hematocrit 36.8 36.1 Mean Corpuscular Volume 86.4 85.6 Mean Corpuscular Hemoglobin 29.4 28.4 Mean Corpuscular Hemoglobin Concent 34.0 33.2 Red Cell Distribution Width 19.8 19.7 Platelet Count 197 219 Mean Platelet Volume 6.5 6.7 Neutrophils (%) (Auto) 84.2 84.7 Lymphocytes (%) (Auto) 5.8 5.7 Monocytes (%) (Auto) 8.8 8.1 Eosinophils (%) (Auto) 0.8 1.3 Basophils (%) (Auto) 0.4 0.2 Neutrophils # (Auto) 5.8 6.8 Lymphocytes # (Auto) 0.4 0.5 Monocytes # (Auto) 0.6 0.6 Eosinophils # (Auto) 0.1 0.1 Basophils # (Auto) 0.0 0.0 CBC Comment DIFF FINAL DIFF FINAL Differential Comment Blood Urea Nitrogen 59 65 Creatinine 7.12 7.49 Random Glucose 101 45 Total Protein 6.8 6.7 Albumin 2.8 2.8 Calcium Level 9.0 9.7 Magnesium Level 2.1 Alkaline Phosphatase 198 196 Aspartate Amino Transf (AST/SGOT) 14 16 Alanine Aminotransferase (ALT/SGPT) 23 22 Total Bilirubin 0.4 0.6 Sodium Level 138 140 Potassium Level 3.5 3.8 Chloride Level 105 104 Carbon Dioxide Level 21.8 21.9 Anion Gap 11 14 Estimat Glomerular Filtration Rate 8 7 Prothrombin Time 12.5 12.4 Prothromb Time International Ratio 1.2 1.2 Result Diagram: 01/31/18 0730 01/31/18 0730 Assessment and Plan Problem List: (1) ESRD on hemodialysis ICD Codes: N18.6 - End-stage renal disease on hemodialysis; Z99.2 - Dependence on renal dialysis Status: Chronic Plan: Hemodialysis will be continued MWF. Dialysis today. Monitor fluid and electrolytes. (2) A-fib ICD Codes: I48.91 - Atrial fibrillation Status: Chronic Plan: Monitor heart rate. On Coumadin. Unclear if he is actually taking it: INR is 1.2 (3) Hypoglycemia ICD Codes: E16.2 - Hypoglycemia, unspecified Status: Acute Plan: Etiology to be determined. On D10. Change diet to renal, high protein diet. (4) CHF (congestive heart failure) ICD Codes: I50.9 - Heart failure, unspecified Status: Chronic Plan: monitor fluid status, continue dialysis. (5) Anemia ICD Codes: D64.9 - Anemia, unspecified Status: Acute Plan: Hemoglobin is stable. No need for EPO (6) Hypertension ICD Codes: I10 - Hypertension Status: Chronic Plan: BP is acceptable. Assessment and Plan Thanks for the consult. Varun Chisholm MD January 31, 2018 10:03
--- NOTE | 2018-01-31 10:40 | EKG ---
Date Performed: 01/30/2018 Time Performed: 18:10:34 PTAGE: 62 years EKG: ATRIAL FIBRILLATION NONSPECIFIC ST & T-WAVE ABNORMALITY PROLONGED QT INTERVAL ABNORMAL ECG Since the PREVIOUS TRACING , no significant change noted PREVIOUS TRACIN12/24/2017 08.35 DOCTOR: Dc Small Interpretating Date/Time 01/31/2018 10:39:50
--- NOTE | 2018-01-31 10:40 | EKG ---
Date Performed: 01/30/2018 Time Performed: 20:08:40 PTAGE: 62 years EKG: ATRIAL FIBRILLATION WITH ABERRANT CONDUCTION OR VENTRICULAR PREMATURE COMPLEXES NONSPECIFIC ST & T-WAVE ABNORMALITY ABNORMAL ECG Since the PREVIOUS TRACING , no significant change noted PREVIOUS TRACIN01/30/2018 18.10 DOCTOR: Dc Small Interpretating Date/Time 01/31/2018 10:39:41
[2018-01-31] MEDS ORDERED: DEXTROSE (ADULT) 31 GM GEL TUBE PO ONE (17:26)
[2018-01-31] MEDS: WARFARIN SOD 3 MG TAB PO SCH (18:20)
[2018-01-31] MEDS: CINACALCET HYDROCHLORIDE 30 MG TAB PO SCH (18:21)
[2018-02-01] VITALS (10 sets, daily range): BP systolic 118–142; BP diastolic 69–93; PULSE 83–107; RESP 14–20; TEMP 97.5–98.9; O2SAT 93–98
[2018-02-01] MEDS: DEXTROSE 50% IN WATER 50 ML VIAL(D50) IV PUSH PRN ×4 (03:25→07:38)
[2018-02-01] MEDS: DOCUSATE SODIUM 50 MG/SENNA 8.6 MG TAB PO SCH ×2 (09:00→21:00)
--- NOTE | 2018-02-01 09:31 | HHI.NPPN ---
Subjective Renal Failure: Chronic, End Stage Renal Disease Interval History Lying in bed. On D10@60 ml/hr. Easily arouses to voice. No complaints. Refusing AM labs. (Chinyere Rodriguez) Objective Data Data Vital Signs Date Time Temp Pulse Resp B/P (MAP) Pulse Ox O2 Delivery O2 Flow Rate FiO2 02/01/18 03:38 98.5 91 16 119/84 (96) 95 02/01/18 03:38 91 02/01/18 00:19 98.9 105 16 119/78 (92) 95 02/01/18 00:19 102 01/31/18 20:57 99 21 01/31/18 19:17 99.0 99 17 128/87 (101) 95 01/31/18 19:00 99 01/31/18 15:17 98.1 96 18 113/79 (90) 95 01/31/18 15:00 88 01/31/18 11:09 98.0 96 18 126/85 (99) 94 01/31/18 11:00 98 (Chinyere Rodriguez) -: 01/31/18 0730 01/31/18 0730 Physical Exam General Appearance: No Acute Distress, Comfortable, Sleeping (Chinyere Rodriguez) Eyes Eye Exam: Pupils Equal, Pupils Reactive (Chinyere Rodriguez) Pulmonary Resp Exam: Clear Bilaterally, Breath Sounds Equal (Chinyere Rodriguez) Cardiology CV Exam: Good Perfusion, Irregular (hCinyere Rodriguez) Gastrointestinal/Abdomen GI Exam: Soft, Non-Tender, Bowel Sounds Present (Chinyere Rodriguez) Musculoskeletal MS Exam: Joints Intact, Normal Tone (Chinyere Rodriguez) Integumentary Skin Exam: Clear, Warm, Dry, Intact (Chinyere Rodrigeuz) Extremeties Extremities Exam: No Edema, Pedal Pulses Palpable Extremeties Remarks AVF left arm with pseudoaneurysm (Chinyere Rodriguez) Neurologic Neuro Exam: Alert, Awake, Oriented, Speech Clear, Moving All Extremities (Chinyere Rodriguez) Assessment/Plan Discussed Condition With: Patient Assessment Summary: End Stage Renal Disease Problem List: (1) ESRD on hemodialysis ICD Codes: N18.6 - End-stage renal disease on hemodialysis; Z99.2 - Dependence on renal dialysis Status: Chronic Plan: Hemodialysis will be continued MWF. 5L UF yesterday. AVF for dialysis left arm, protect that extremity. Avoid IVF. Dialysis tomorrow. (2) A-fib ICD Codes: I48.91 - Atrial fibrillation Status: Chronic Plan: On Cardizem Rate is controlled On Coumadin, subtherapeutic, refusing AM lab draw. (3) Hypoglycemia ICD Codes: E16.2 - Hypoglycemia, unspecified Status: Acute Plan: Etiology to be determined. On D10 @ 60, latest blood sugar 130s. He is eating, diet is renal, high protein. (4) CHF (congestive heart failure) ICD Codes: I50.9 - Heart failure, unspecified Status: Chronic Plan: monitor fluid status, continue dialysis. (5) Anemia ICD Codes: D64.9 - Anemia, unspecified Status: Acute Plan: Hemoglobin is stable. Not receiving Epogen. (6) Hypertension ICD Codes: I10 - Hypertension Status: Chronic Plan: BP is acceptable. (Chinyere Rodriguez) Plan patient was seen and examined. Agree with above assessment and plan. Taper off D10 (Varun Chisholm MD) Chinyere Rodriguez February 01, 2018 09:31 Varun Chisholm MD February 01, 2018 09:38
[2018-02-01] MEDS: SODIUM CHLORIDE 0.9% FLUSH 10 ML FLUSH IV FLUSH SCH ×2 (09:39→21:00)
[2018-02-01] MEDS: METOPROLOL TARTRATE 25 MG TAB PO SCH ×2 (09:39→22:09)
[2018-02-01] MEDS: CITALOPRAM HYDROBROMIDE 20 MG TAB PO SCH (09:39)
[2018-02-01] MEDS: SEVELAMER CARBONATE 800 MG TAB PO SCH ×3 (09:39→17:00)
[2018-02-01] MEDS: DILTIAZEM-CD 240 MG CAP ER PO SCH (09:39)
--- NOTE | 2018-02-01 10:27 | HHI.PR ---
Subjective Remarks Follow up hypoglycemia. The patient has no complaints at this time. Denies chest pain, dyspnea, lightheadedness, dizziness. Objective Vitals Vital Signs Date Time Temp Pulse Resp B/P (MAP) Pulse Ox O2 Delivery O2 Flow Rate FiO2 02/01/18 03:38 98.5 91 16 119/84 (96) 95 02/01/18 03:38 91 02/01/18 00:19 98.9 105 16 119/78 (92) 95 02/01/18 00:19 102 01/31/18 20:57 99 21 01/31/18 19:17 99.0 99 17 128/87 (101) 95 01/31/18 19:00 99 01/31/18 15:17 98.1 96 18 113/79 (90) 95 01/31/18 15:00 88 01/31/18 11:09 98.0 96 18 126/85 (99) 94 01/31/18 11:00 98 I/O 01/31/18 01/31/18 01/31/18 02/01/18 02/01/18 02/01/18 07:00 15:00 23:00 07:00 15:00 23:00 Intake Total 150 ml 1950 ml 1272 ml Output Total 5000 ml Balance 150 ml -3050 ml 1272 ml Intake Oral 1000 ml 600 ml IV Total 150 ml 950 ml 672 ml Output Urine Total 0 ml Hemodialysis 5000 ml # Bowel Movements 1 1 Result Diagram: 01/31/18 0730 01/31/18 0730 Objective Remarks General: No acute distress. Heart: Regular rate and rhythm. No murmur. Lungs: Clear to auscultation bilaterally. No wheezes, rales, or rhonchi. Breathing is nonlabored. Abdomen: Soft, nontender, nondistended. Extremities: No lower extremity edema. Psych: Alert and oriented. Neuro: Normal speech. No focal deficits noted. Procedures None Urinary Catheter: No Vascular Central Line Catheter: No A/P Problem List: (1) Hypoglycemia ICD Code: E16.2 - Hypoglycemia, unspecified Status: Acute (2) ESRD on hemodialysis ICD Code: N18.6 - End-stage renal disease on hemodialysis; Z99.2 - Dependence on renal dialysis Status: Chronic (3) A-fib ICD Code: I48.91 - Atrial fibrillation Status: Chronic Assessment and Plan 1. Hypoglycemia: Uncertain etiology. Glucose remains borderline low despite D10. He is asymptomatic. Endocrinology consult is pending. 2. End-stage renal disease on hemodialysis Wednesday/Wednesday/Wednesday. Appreciate nephrology recommendations. 3. Atrial fibrillation: Chronic. INR is subtherapeutic. Rate is controlled. Labs are pending today. 4. DVT prophylaxis: Coumadin. Discharge Planning Pending further clinical improvement. Hemanth Angeles MD February 01, 2018 10:27
[2018-02-01] MEDS: CINACALCET HYDROCHLORIDE 30 MG TAB PO SCH (16:00)
[2018-02-01] MEDS: WARFARIN SOD 3 MG TAB PO SCH (18:37)
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
[2018-02-01] MEDS: DEXTROSE 10% INJ 1,000 ML IV SCH ×2 (21:40)
[2018-02-01] MEDS: ONDANSETRON HCL 4 MG/2 ML VIAL IVP PRN (22:16)
[2018-02-02] VITALS (12 sets, daily range): BP systolic 121–144; BP diastolic 74–96; PULSE 102–131; RESP 18–20; TEMP 98.2–99.2; O2SAT 93–97
[2018-02-02] MEDS: ONDANSETRON HCL 4 MG/2 ML VIAL IVP PRN (04:15)
[2018-02-02] MEDS: DEXTROSE 10% INJ 1,000 ML IV SCH ×3 (04:16→14:05)
[2018-02-02 05:02] LABS: INTERNATIONAL NORMALIZED RATIO 1.2 RATIO; PROTHROMBIN TIME - PATIENT 12.3 SEC (9.8-11.6)
[2018-02-02 05:13] LABS: BICARBONATE 24.2 MEQ/L (21.0-32.0); CALCIUM 9.8 MG/DL (8.5-10.1); CREATININE 7.31 MG/DL (0.60-1.30)
[2018-02-02] MEDS: SEVELAMER CARBONATE 800 MG TAB PO SCH ×3 (08:00→17:00)
[2018-02-02] MEDS: METOPROLOL TARTRATE 25 MG TAB PO SCH (08:58)
[2018-02-02] MEDS: DOCUSATE SODIUM 50 MG/SENNA 8.6 MG TAB PO SCH ×2 (08:58→21:00)
[2018-02-02] MEDS: SODIUM CHLORIDE 0.9% FLUSH 10 ML FLUSH IV FLUSH SCH ×2 (08:58→21:00)
[2018-02-02] MEDS: DILTIAZEM-CD 240 MG CAP ER PO SCH (08:58)
[2018-02-02] MEDS: CITALOPRAM HYDROBROMIDE 20 MG TAB PO SCH (08:58)
--- NOTE | 2018-02-02 11:38 | HHI.NPPN ---
Subjective Renal Failure: Chronic, End Stage Renal Disease Interval History Seen during dialysis. Not eating, states he is nauseated and has vomited. On D10 @ 50. Hyperkalemic. (Chinyere Rodriguez) Review of Systems Gastrointestinal Gastrointestinal: Nausea & Vomiting (Chinyere Rodriguez) Objective Data Data Vital Signs Date Time Temp Pulse Resp B/P (MAP) Pulse Ox O2 Delivery O2 Flow Rate FiO2 02/02/18 11:16 98.9 113 141/91 (108) 96 02/02/18 11:15 113 02/02/18 08:15 112 02/02/18 08:14 98.2 102 139/90 (106) 96 02/02/18 07:40 97 21 02/02/18 04:00 99.2 108 144/96 (112) 93 02/02/18 03:15 106 02/02/18 00:00 98.7 104 136/77 (96) 95 02/01/18 23:20 102 02/01/18 21:22 96 21 02/01/18 20:00 97.5 92 142/93 (109) 93 02/01/18 19:20 88 02/01/18 17:35 98 21 02/01/18 15:00 98.4 91 20 132/92 (105) 97 02/01/18 15:00 83 (Chinyere Rodriguez) -: 01/31/18 0730 02/02/18 0405 Physical Exam General Appearance: No Acute Distress, Comfortable, Sleeping (Chinyere Rodriguez) Eyes Eye Exam: Pupils Equal, Pupils Reactive (Chinyere Rodriguez) Pulmonary Resp Exam: Clear Bilaterally, Breath Sounds Equal (Chinyere Rodriguez) Cardiology CV Exam: Good Perfusion, Irregular (Chinyere Rodriguez) Gastrointestinal/Abdomen GI Exam: Soft, Non-Tender, Bowel Sounds Present (Chinyere Rodriguez) Musculoskeletal MS Exam: Joints Intact, Normal Tone (Chinyere Rodriguez) Integumentary Skin Exam: Clear, Warm, Dry, Intact (Chinyere Rodriguez) Extremeties Extremities Exam: No Edema, Pedal Pulses Palpable Extremeties Remarks AVF left arm with pseudoaneurysm (Chinyere Rodriguez) Neurologic Neuro Exam: Alert, Awake, Oriented, Speech Clear, Moving All Extremities (Chinyere Rodriguez) Assessment/Plan Discussed Condition With: Patient Assessment Summary: End Stage Renal Disease Electrolyte Assessment: Hyperkalemia, Hyponatremia Problem List: (1) ESRD on hemodialysis ICD Codes: N18.6 - End-stage renal disease on hemodialysis; Z99.2 - Dependence on renal dialysis Status: Chronic Plan: Seen during dialysis today on a 1K, 320 BFR, UF 4L Hemodialysis will be continued MWF. Repeat potassium tomorrow.l AVF for dialysis left arm, protect that extremity. Avoid IVF. High protein diet encouraged. Given zofran for nausea. (2) A-fib ICD Codes: I48.91 - Atrial fibrillation Status: Chronic Plan: On Cardizem Rate is controlled On dose adjusted Coumadin, subtherapeutic (3) Hypoglycemia ICD Codes: E16.2 - Hypoglycemia, unspecified Status: Acute Plan: Etiology to be determined. On D10 @ 50, he is not eating. Seen by endocrinology (4) CHF (congestive heart failure) ICD Codes: I50.9 - Heart failure, unspecified Status: Chronic Plan: monitor fluid status, continue dialysis. (5) Anemia ICD Codes: D64.9 - Anemia, unspecified Status: Acute Plan: Hemoglobin is stable. Not receiving Epogen. (6) Hypertension ICD Codes: I10 - Hypertension Status: Chronic Plan: BP is acceptable. (Chinyere Rodriguez) Problem List: (1) ESRD on hemodialysis ICD Codes: N18.6 - End-stage renal disease on hemodialysis; Z99.2 - Dependence on renal dialysis Status: Chronic Plan: Seen during dialysis today on a 1K, 320 BFR, UF 4L Hemodialysis will be continued MWF. Repeat potassium tomorrow.l AVF for dialysis left arm, protect that extremity. Avoid IVF. High protein diet encouraged. Given zofran for nausea. (2) A-fib ICD Codes: I48.91 - Atrial fibrillation Status: Chronic Plan: On Cardizem Rate is controlled On dose adjusted Coumadin, subtherapeutic (3) Hypoglycemia ICD Codes: E16.2 - Hypoglycemia, unspecified Status: Acute Plan: Etiology to be determined. On D10 @ 50, he is not eating. Seen by endocrinology (4) CHF (congestive heart failure) ICD Codes: I50.9 - Heart failure, unspecified Status: Chronic Plan: monitor fluid status, continue dialysis. (5) Anemia ICD Codes: D64.9 - Anemia, unspecified Status: Acute Plan: Hemoglobin is stable. Not receiving Epogen. (6) Hypertension ICD Codes: I10 - Hypertension Status: Chronic Plan: BP is acceptable. Plan patient was seen and examined. Agree with above assessment and plan. Endocrinology note reviewed. (Varun Chisholm MD) Chinyere Rodriguez [facility] February 02, 2018 11:38 Varun Chisholm MD February 02, 2018 20:56
--- NOTE | 2018-02-02 15:02 | HHI.PR ---
Subjective Remarks Nursing denies any deterioration since last night. Patient himself has no complaints. Says he is eating. Objective Vital Signs Date Time Temp Pulse Resp B/P (MAP) Pulse Ox O2 Delivery O2 Flow Rate FiO2 02/02/18 11:16 98.9 113 141/91 (108) 96 02/02/18 11:15 113 02/02/18 08:15 112 02/02/18 08:14 98.2 102 139/90 (106) 96 02/02/18 07:40 97 21 02/02/18 04:00 99.2 108 144/96 (112) 93 02/02/18 03:15 106 02/02/18 00:00 98.7 104 136/77 (96) 95 02/01/18 23:20 102 02/01/18 21:22 96 21 02/01/18 20:00 97.5 92 142/93 (109) 93 02/01/18 19:20 88 02/01/18 17:35 98 21 02/01/18 15:00 98.4 91 20 132/92 (105) 97 02/01/18 15:00 83 I/O 02/01/18 02/01/18 02/01/18 02/02/18 02/02/18 02/02/18 07:00 15:00 23:00 07:00 15:00 23:00 Intake Total 1272 ml 1280 ml 966 ml 427 ml Output Total 0 ml 0 ml 4000 ml Balance 1272 ml 1280 ml 966 ml -3573 ml Intake Oral 600 ml 720 ml 480 ml IV Total 672 ml 560 ml 486 ml 427 ml Output Urine Total 0 ml 0 ml Hemodialysis 4000 ml # Bowel Movements 1 3 0 Result Diagram: 01/31/18 0730 02/02/18 0405 Objective Remarks Lying in bed, no acute distress Awake, alert, oriented Unlabored breathing, no cyanosis A/P Assessment and Plan 1. Hypoglycemia: Much improved. A.m. cortisol within normal limits. C- peptide level is pending. Appreciate endocrinology input, suspect possible toxicity from sulfonylurea use. I will decrease D10 rate down to 30 mL's an hour. 2. End-stage renal disease on hemodialysis and hyperkalemia and hyponatremia: Wednesday/Wednesday/Wednesday. Appreciate nephrology recommendations. 3. Atrial fibrillation: Chronic. INR is subtherapeutic. I have increased Coumadin from 3 mg to 5 mg daily. Rate is also not fully controlled, continue Cardizem, will increase Lopressor from 25 to 50 mg twice daily. 4. DVT prophylaxis: Coumadin. Sushil Talbot MD February 02, 2018 15:02
[2018-02-02] MEDS: CINACALCET HYDROCHLORIDE 30 MG TAB PO SCH (16:00)
[2018-02-02] MEDS: WARFARIN SOD 5 MG TAB PO SCH (16:00)
[2018-02-02] MEDS: METOPROLOL TARTRATE 50 MG TAB PO SCH (21:00)
[2018-02-03] VITALS: BP 109/74; PULSE 116; PULSE 117; RESP 20; TEMP 98.3; O2SAT 95
[2018-02-03] MEDS: ONDANSETRON HCL 4 MG/2 ML VIAL IVP PRN (00:10)
[2018-02-03 04:00] VITALS: BP 114/80; PULSE 94; RESP 22; TEMP 98.4; O2SAT 97
[2018-02-03] MEDS: DEXTROSE 10% INJ 1,000 ML IV SCH (04:00)
[2018-02-03 04:58] LABS: INTERNATIONAL NORMALIZED RATIO 1.5 RATIO; PROTHROMBIN TIME - PATIENT 15.1 SEC (9.8-11.6)
[2018-02-03 05:15] LABS: BICARBONATE 26.2 MEQ/L (21.0-32.0); CALCIUM 10.2 MG/DL (8.5-10.1); CREATININE 6.42 MG/DL (0.60-1.30); PHOSPHORUS 6.6 MG/DL (2.5-4.9)
[2018-02-03 07:00] VITALS: BP 133/91; PULSE 112; RESP 20; TEMP 98.6; O2SAT 95
[2018-02-03 07:46] VITALS: O2SAT 94
[2018-02-03] MEDS: DOCUSATE SODIUM 50 MG/SENNA 8.6 MG TAB PO SCH (08:28)
[2018-02-03] MEDS: CITALOPRAM HYDROBROMIDE 20 MG TAB PO SCH (08:28)
[2018-02-03] MEDS: DILTIAZEM-CD 240 MG CAP ER PO SCH (08:28)
[2018-02-03] MEDS: METOPROLOL TARTRATE 50 MG TAB PO SCH (08:28)
[2018-02-03] MEDS: SEVELAMER CARBONATE 800 MG TAB PO SCH ×2 (08:28→12:32)
[2018-02-03] MEDS: SODIUM CHLORIDE 0.9% FLUSH 10 ML FLUSH IV FLUSH SCH (08:29)
--- NOTE | 2018-02-03 09:33 | HHI.NPPN ---
Subjective Renal Failure: Chronic, End Stage Renal Disease Interval History Dialyzed without incident yesterday. He is sleeping, breakfast remains untouched at bedside. On D10@ 30. States he is not hungry. (Chinyere Rodriguez) Review of Systems Gastrointestinal Gastrointestinal: Nausea & Vomiting (Chinyere Rodriguez) Objective Data Data Vital Signs Date Time Temp Pulse Resp B/P (MAP) Pulse Ox O2 Delivery O2 Flow Rate FiO2 02/03/18 07:46 94 Nasal Cannula 2.00 02/03/18 07:00 98.6 112 20 133/91 (105) 95 02/03/18 07:00 96 Nasal Cannula 2.00 02/03/18 07:00 112 02/03/18 04:00 94 02/03/18 04:00 97 Nasal Cannula 2.00 02/03/18 04:00 98.4 94 22 114/80 (91) 97 02/03/18 00:00 116 02/03/18 00:00 95 Nasal Cannula 2.00 02/03/18 00:00 98.3 117 20 109/74 (86) 95 02/02/18 22:00 96 21 02/02/18 20:00 95 Room Air 02/02/18 20:00 98.6 131 18 143/94 (110) 95 02/02/18 20:00 130 02/02/18 15:09 122 02/02/18 15:08 98.9 125 20 121/74 (90) 96 02/02/18 11:16 98.9 113 141/91 (108) 96 02/02/18 11:15 113 (Chinyere Rodriguez) -: 01/31/18 0730 02/03/18 0319 Physical Exam General Appearance: No Acute Distress, Comfortable, Sleeping, Malnourished (Chinyere Rodriguez) Eyes Eye Exam: Pupils Equal, Pupils Reactive (Chinyere Rodriguez) Pulmonary Resp Exam: Clear Bilaterally, Breath Sounds Equal (Chinyere Rodriguez) Cardiology CV Exam: Good Perfusion, Irregular (Chinyere Rodriguez) Gastrointestinal/Abdomen GI Exam: Soft, Non-Tender, Bowel Sounds Present (Chinyere Rodriguez) Musculoskeletal MS Exam: Joints Intact, Normal Tone (Chinyere Rodriguez) Integumentary Skin Exam: Clear, Warm, Dry, Intact (Chinyere Rodriguez) Extremeties Extremities Exam: No Edema, Pedal Pulses Palpable Extremeties Remarks AVF left arm with pseudoaneurysm (Chinyere Rodriguez) Neurologic Neuro Exam: Alert, Awake, Oriented, Speech Clear, Moving All Extremities (Chinyere Rodriguez) Assessment/Plan Discussed Condition With: Patient Assessment Summary: Diabetes Mellitus, End Stage Renal Disease Electrolyte Assessment: Hyponatremia Problem List: (1) ESRD on hemodialysis ICD Codes: N18.6 - End-stage renal disease on hemodialysis; Z99.2 - Dependence on renal dialysis Status: Chronic Plan: Hemodialysis will be continued MWF. 4L fluid removal yesterday. Repeat potassium level has improved AVF for dialysis left arm, protect that extremity. Avoid excess IVF administration High protein diet encouraged. On zofran for nausea. Not wanting appetite stimulant. (2) A-fib ICD Codes: I48.91 - Atrial fibrillation Status: Chronic Plan: On Cardizem Rate is controlled On Coumadin, recent dosage increase, INR improved but still subtherapeutic (3) Hypoglycemia ICD Codes: E16.2 - Hypoglycemia, unspecified Status: Acute Plan: Etiology to be determined. Labs still in process from endocrinology work up. On D10 @ 30, he is still not eating. Attempt to feed the patient (4) CHF (congestive heart failure) ICD Codes: I50.9 - Heart failure, unspecified Status: Chronic Plan: monitor fluid status, continue dialysis. (5) Anemia ICD Codes: D64.9 - Anemia, unspecified Status: Acute Plan: Hemoglobin is stable. Not receiving Epogen. (6) Hypertension ICD Codes: I10 - Hypertension Status: Chronic Plan: BP is acceptable. (Chinyere Rodriguez) Plan patient was seen and examined. Agree with above assessment and plan. (Varun Chisholm MD) Chinyere Rodriguez February 03, 2018 09:33 Varun Chisholm MD February 03, 2018 09:49
[2018-02-03 11:00] VITALS: BP 126/76; PULSE 100; PULSE 96; RESP 20; TEMP 98.1; O2SAT 99
[2018-02-03] MEDS ORDERED: SEVELAMER CARBONATE 800 MG TAB PO SCH (12:00)
[2018-02-03] MEDS ORDERED: COUM5TAB PO (14:40)
[2018-02-03] MEDS ORDERED: METO-309 PO (14:40)
--- NOTE | 2018-02-03 14:41 | HHI.DCPOC ---
Discharge Care Plan Diagnosis: (1) Metabolic encephalopathy (2) Hypertension Goals to Promote Your Health * To prevent worsening of your condition and complications * To maintain your health at the optimal level Directions to Meet Your Goals Take your medications as prescribed Follow your dietary instruction Follow activity as directed Keep your appointments as scheduled Take your immunizations and boosters as scheduled If your symptoms worsen call your PCP, if no PCP go to Urgent Care Center or Emergency Room Smoking is Dangerous to Your Health. Avoid second hand smoke Call the 24-hour hour crisis hotline for domestic abuse at Sushil Talbot MD February 03, 2018 14:41
[2018-02-03 15:00] VITALS: BP 104/74; PULSE 84; RESP 20; TEMP 98.8; O2SAT 92
--- NOTE | 2018-02-03 15:10 | HHI.FF ---
Face to Face Verification Diagnosis: (1) Metabolic encephalopathy (2) Hypoglycemia (3) ESRD on hemodialysis (4) A-fib Home Health Nursing Order: Medical education Signs/symptoms of disease process Nursing assessment with vital signs I have seen patient Zak Looney on 02/03/18. My clinical findings support the need for the requested home health care services because: Limited ability to care for self I certify that my clinical findings support that this patient is homebound because: Unsafe to leave home unassisted Sushil Talbot MD February 03, 2018 15:10
[2018-02-03] MEDS ORDERED: ONDANSETRON ODT 4 MG TAB PO ONE (15:15)
--- NOTE | 2018-02-03 15:20 | HHI.DS ---
Discharge Summary Admission Date January 30, 2018 at 20:06 Discharge Date: February 03, 2018 Admitting Diagnosis metabolic encephalopathy 2/2 hypoglycemia (1) Hypoglycemia ICD Code: E16.2 - Hypoglycemia, unspecified Status: Acute (2) ESRD on hemodialysis ICD Code: N18.6 - End-stage renal disease on hemodialysis; Z99.2 - Dependence on renal dialysis Status: Chronic (3) A-fib ICD Code: I48.91 - Atrial fibrillation Status: Chronic (4) Inadequate caloric intake ICD Code: E63.9 - Nutritional deficiency, unspecified (5) Inadequate dietary intake ICD Code: E63.9 - Nutritional deficiency, unspecified Procedures None Brief History - From Admission This is a 62-year-old male with a PMH of HTN, A. fib on Coumadin, Anxiety, Depression, CHF (Echo 12/28/17 w/ EF 45-50%), h/o CVA and ESRD on HD M/W/F who was sent to the ER from [facility] for hypoglycemia. Per report, pt noted to be lethargic at [facility], BS per EMS 39, s/p D50. While in ER had recurrent episode of hypoglycemia w/ BS 29, s/p additional D50, now on D10. No h/o DM, no recent fever, chills, nausea/vomiting or diarrhea. No obvious sepsis/infection. Last Hgb A1c 09/05/14 was 5.4. On arrival, BP 131/72, HR 73, O2 sat 99% on RA, Afebrile. CBC essentially unremarkable. Chemistry stable. Creatinine 7.12, previously 6.49 on 01/09/2018. UA pending. CBC/BMP: 01/31/18 0730 02/03/18 0319 Significant Findings Laboratory Tests Test 02/01/18 20:51 02/02/18 04:05 02/03/18 03:19 Prothrombin Time 12.3 SEC (9.8-11.6) 15.1 SEC (9.8-11.6) Blood Urea Nitrogen 56 MG/DL (7-18) 43 MG/DL (7-18) Creatinine 7.31 MG/DL (0.60-1.30) 6.42 MG/DL (0.60-1.30) Random Glucose 116 MG/DL (74-106) 107 MG/DL (74-106) Sodium Level 130 MEQ/L (136-145) 133 MEQ/L (136-145) Potassium Level 6.2 MEQ/L (3.5-5.1) 5.4 MEQ/L (3.5-5.1) Chloride Level 93 MEQ/L (98-107) 93 MEQ/L (98-107) Estimat Glomerular Filtration Rate 8 ML/MIN (>89) 9 ML/MIN (>89) Albumin 3.0 GM/DL (3.4-5.0) Calcium Level 10.2 MG/DL (8.5-10.1) Phosphorus Level 6.6 MG/DL (2.5-4.9) PE at Discharge Lying in bed, awake, alert, no acute distress, unlabored breathing Abdomen soft, nontender, nondistended Hospital Course Patient was admitted, started on IV dextrose infusion. Endocrinology was consulted, obtained peripheral lab work which was still pending by the time of discharge. Eventually patient's sugars stabilized and was weaned off of IV dextrose. Patient's A1c registered as 5 but this was likely meaningless given his end-stage renal disease. Patient was tolerating p.o. intake well and his encephalopathy resolved, did report having intermittent nausea which was attributed to his end-stage renal disease. Patient was encouraged and counseled extensively on appropriate adequate p.o. intake to maintain good sugar levels. Blood work was otherwise unremarkable for any other obvious etiology for hypoglycemia. Patient was also uptitrated on his warfarin for better anticoagulation for his A. fib and his metoprolol was increased for better rate control. Patient has met maximal benefit from hospitalization and is clinically stable for discharge. Pt Condition on Discharge: Stable Discharge Disposition: [facility] with [facility] Discharge Time: <= 30 minutes Discharge Instructions DIET: Follow Instructions for: Renal Failure Diet Activities you can perform: See Additionl Instruction Other Activity Instructions: pre-existing activity level at [facility] Follow up Referrals: Endocrinology - 1 Week with Tyler Tinajero MD PCP Follow-up - 1 Week New Medications: Metoprolol Tartrate (Lopressor) 50 Mg Tab 50 MG PO Q12HR for afib, #60 TAB Warfarin (Coumadin) 5 Mg Tab 5 MG PO DAILY@1600 for afib, #30 TAB Continued Medications: Acetaminophen (Non-Aspirin) 325 Mg Tab 325 MG PO Q4-6H PRN for PAIN SCALE 1 TO 3, TAB 0 Refills B-Complex W/ C & Folic Acid (Jennifer-Phani) 1 Tab 1 TAB PO DAILY, TAB Cinacalcet (Sensipar) 30 Mg Tab 60 MG PO AC DINNER for end stage renal disease, #60 TAB 0 Refills Citalopram (Citalopram) 10 Mg Tab 30 MG PO DAILY for Control Depression, #30 TAB 0 Refills Clobetasol Propionate/Emoll (Clobetasol Emollient 0.05% Crm) 0.05 % Cream..g. Diltiazem ER 12 HR (Diltiazem ER 12 HR) 120 Mg Caper 240 MG PO DAILY, #60 CAP 0 Refills Diphenhydramine (Diphenhydramine) 25 Mg Cap 25 MG PO Q12H PRN for ALLERGIES, CAP 0 Refills Ferric Citrate (Auryxia) 210 Mg Iron Tab PO TIDAC Fluocinonide Topical (Fluocinonide Topical) 0.05% Soln 1 APPLIC TOPICAL BID, #60 ML 0 Refills Hydrocodone-Acetaminophen (Tiffin) 5 Mg-325 Mg Tab 1 TAB PO Q6H PRN for PAIN, #15 TAB 0 Refills Loperamide (Loperamide) 2 Mg Cap 2 MG PO DIRECTED PRN for DIARRHEA, CAP 0 Refills One capsule after each loose stool. Not to exceed 8 capsules per day. Melatonin/Pyridoxine HCl (B6) (Melatonin 3 mg Tablet) 3 Mg-10 Mg Tablet Ondansetron (Zofran) 4 Mg Tab 4 MG PO Q8HR PRN for NAUSEA OR VOMITING, TAB 0 Refills Sevelamer Carbonate (Renvela) 800 Mg Tab 2400 MG PO TIDAC for renal failure, #270 TAB 0 Refills Warfarin (Warfarin) 3 Mg Tab 3 MG PO DAILY for Blood Clot Prevention, TAB 0 Refills Discontinued Medications: Metoprolol Tartrate (Metoprolol Tartrate) 25 Mg Tab 25 MG PO BID, #60 TAB 0 Refills Sushil Talbot MD February 03, 2018 15:20
[2018-02-03] MEDS: WARFARIN SOD 5 MG TAB PO SCH (15:30)
[2018-02-04 17:51] LABS: C-PEPTIDE 5.57 ng/mL (0.80-3.85)
== END 2018-02-03 16:15 | DRG 70 ==
LOC: NEPC 17:58 → NEDA 20:06 → NEPFCDU 20:50 → HCIS 01-31 01:17 → HCVI 01-31 05:45
PROVIDERS: ADMIT Hospitalist; ATTEND Hospitalist
PROC: 5A1D70Z Performance of Urinary Filtration, Intermittent, Less than 6 Hours Per Day (ICD-10-PCS; principal; 2018-01-31)
DX: G93.41 Metabolic encephalopathy (principal); I13.2 Hypertensive heart and chronic kidney disease with heart failure and with stage 5 chronic kidney disease, or end stage renal disease; N18.6 End stage renal disease; I50.9 Heart failure, unspecified; I48.2 Chronic atrial fibrillation; E16.2 Hypoglycemia, unspecified; Z99.2 Dependence on renal dialysis; E63.9 Nutritional deficiency, unspecified; Z79.01 Long term (current) use of anticoagulants; F41.9 Anxiety disorder, unspecified; F32.9 Major depressive disorder, single episode, unspecified; M16.0 Bilateral primary osteoarthritis of hip; D64.9 Anemia, unspecified; Z86.73 Personal history of transient ischemic attack (TIA), and cerebral infarction without residual deficits
CPT/HCPCS: 76937; 80048; 80053; 80069; 82533; 82948; 83036; 83525; 83735; 84206; 84681; 85025; 85610; 90935; 93005; 96374; J0171; J0461; J1610; J2405; J7030

== ENCOUNTER 2018-09-11 08:50 | Inpatient (IN) ==
[2018-09-11] MEDS ORDERED: Sod Chloride 0.9% Inj 1,000 ML IV.SIG ONE (08:58)
[2018-09-11] MEDS ORDERED: Pantoprazole Inj 40 MG Vial IV.PUSH ONE (09:15)
--- NOTE | 2018-09-11 09:19 | ED ---
HPI General Chief complaint: Nausea/Vomiting/Diarrhea Stated complaint: Complaint Time Seen by Provider: 09/11/18 09:15 Source: patient and EMS Mode of arrival: EMS Limitations: no limitations History of Present Illness HPI Narrative: 63-year-old male patient with history of hypertension, end-stage renal disease, A. fib currently on blood thinners, dialysis last time on Wednesday , previous CVA, presents to the ER today because he states that he is just having explosive diarrhea that has been going on for several weeks but it got worse today with dark stools. He is feeling weak, and he is currently hypotensive. He denies any current vomiting, abdominal pains, chest pains, fevers, or other symptoms. Modifying Factors: None Associated Signs & Symptoms: Diarrhea, dark stools, low blood pressure Risk Factors: On blood thinners, Warfarin Related Data Home Medications Medication Instructions Recorded Confirmed B complex-vitamin C-folic acid 1 tab PO DAILY 09/11/18 09/11/18 [Jennifer-Phani] cephalexin 500 mg PO QID 09/11/18 09/11/18 cinacalcet [Sensipar] 60 mg PO HS 09/11/18 09/11/18 citalopram 20 mg PO DAILY 09/11/18 09/11/18 digoxin 0.125 mg PO 4XW 09/11/18 09/11/18 melatonin 3 mg PO HS PRN 09/11/18 09/11/18 metoprolol tartrate 25 mg PO DAILY 09/11/18 09/11/18 midodrine 10 mg PO 3XW 09/11/18 09/11/18 sucroferric oxyhydroxide [Velphoro] 500 mg PO TID 09/11/18 09/11/18 sulfamethoxazole-trimethoprim 1.5 tab PO BID 09/11/18 09/11/18 warfarin 5 mg PO DAILY 09/11/18 09/11/18 Allergies Allergy/AdvReac Type Severity Reaction Status Date / Time bee venom protein (honey bee) Allergy Severe Anaphylaxis Verified 09/11/18 09:23 phenylephrine Allergy Severe Hives Verified 09/11/18 09:30 [From Contac-D Cold (PE)] Review of Systems ROS: all other systems reviewed are negative PMFSH History History Provided By: Patient Social History Social History Substance History: No History of Abuse Smoking Status: Refused to answer How Often Do You Have a Drink Containing Alcohol: Never Recent Travel in [facility] within the Last 8 Weeks: No Recent Out of Country Travel within the Last 8 Weeks: No Exam Narrative Exam Narrative: GENERAL: Well-developed elderly white male patient currently in mild distress. Awake and oriented x3. SKIN: Focused skin assessment warm/dry. HEAD: Atraumatic. Normocephalic. EYES: Pupils equal and round. No scleral icterus. No injection or drainage. ENT: No nasal bleeding or discharge. Mucous membranes pink and moist. NECK: Trachea midline. No JVD. CARDIOVASCULAR: Regular rate and rhythm. No murmur appreciated. RESPIRATORY: No accessory muscle use. Clear to auscultation. Breath sounds equal bilaterally. GASTROINTESTINAL: Abdomen soft, non-tender, nondistended. Hepatic and splenic margins not palpable. RECTAL EXAM: No masses or tenderness, stool is brown, Dark, Hemoccult positive. MUSCULOSKELETAL: No obvious deformities. No clubbing. No cyanosis. No edema. NEUROLOGICAL: Awake and alert. No obvious cranial nerve deficits. Motor grossly within normal limits. Normal speech. PSYCHIATRIC: Appropriate mood and affect; insight and judgment normal. Procedures Hemaprompt Stool Procedural Steps Taken: specimen placed in appropriate test area, developer placed on specimen and control areas and controls appropriately positive and negative Hemaprompt Stool Result: positive Course Initial Documented Vital Signs Temperature 98.7 F 09/11/18 09:19 Pulse Rate 100 H 09/11/18 09:19 Respiratory Rate 16 09/11/18 09:19 Blood Pressure 111/61 09/11/18 09:19 Pulse Oximetry 98 09/11/18 09:19 Last Documented Vital Signs Temperature 98.7 F 09/11/18 09:19 Pulse Rate 114 H 09/11/18 09:29 Respiratory Rate 16 09/11/18 09:29 Blood Pressure 114/64 09/11/18 09:29 Pulse Oximetry 98 09/11/18 09:29 Medical Decision Making [facility] Narrative Medical decision making narrative: Lab work shows that his hemoglobin is fairly stable. BUN and creatinine is fairly elevated consistent with patient's renal status and need for dialysis tomorrow. He is Hemoccult positive consistent with GI bleeding and he was given Protonix in the ER. IV fluid boluses were also given in the ER. At this point, my plan would be to admit him for further treatment of GI bleed. Case is discussed with Dr. Iniguez for admission. Medical Screen Exam Complete: Yes Emergency Medical Condition: Yes Differential Diagnosis Differential Diagnosis: Coagulopathy versus GI bleed versus gastroenteritis Lab Data Lab results reviewed: Yes I reviewed the patient's lab results. Result diagrams: 09/11/18 09:08 09/11/18 09:40 Lab Results 09/11/18 09/11/18 09/11/18 Range/Units 09:08 09:08 09:40 WBC 6.1 (4.0-11.0) th/mm3 RBC 5.01 (4.50-5.90) mil/mm3 Hgb 16.3 (13.0-17.0) gm/dL Hct 47.3 (39.0-51.0) % MCV 94.6 (80.0-100.0) fL MCH 32.5 (27.0-34.0) pg MCHC 34.4 (32.0-36.0) % RDW 17.2 (11.6-17.2) % Plt Count 172 (150-450) th/mm3 MPV 7.1 (7.0-11.0) fL Neut % (Auto) 73.0 H (16.0-70.0) % Lymph % (Auto) 11.4 (9.0-44.0) % [place] % (Auto) 10.4 H (0.0-8.0) % Eos % (Auto) 4.3 H (0.0-4.0) % Baso % (Auto) 0.9 (0.0-2.0) % Neut # (Auto) 4.5 (1.8-7.7) th/mm3 Lymph # (Auto) 0.7 L (1.0-4.8) th/mm3 [place] # (Auto) 0.6 (0.0-0.9) th/mm3 Eos # (Auto) 0.3 (0.0-0.4) th/mm3 Baso # (Auto) 0.1 (0.0-0.2) th/mm3 WBC Differential . Differential Comment Auto diff final PT 47.7 H (9.8-11.6) sec INR 4.8 Ratio APTT 63.2 H (23.4-31.7) sec Sodium (136-145) meq/L Potassium (3.5-5.1) meq/L Chloride (98-107) meq/L Carbon Dioxide (21.0-32.0) meq/L Anion Gap (5-15) meq/L BUN (7-18) mg/dL Creatinine (0.60-1.30) mg/dL Estimated GFR (>89) mL/min Random Glucose (74-106) mg/dL Calcium (8.5-10.1) mg/dL Calcium Adj for Albumin (8.5-10.1) mg/dL Total Bilirubin (0.2-1.0) mg/dL AST (15-37) U/L ALT (12-78) U/L Alkaline Phosphatase (45-117) U/L Troponin I (0.02-0.05) ng/mL Total Protein (6.4-8.2) g/dL Albumin (3.4-5.0) g/dL Blood Type A Positive Blood Type Recheck Required Antibody Screen Negative 09/11/18 Range/Units 09:40 WBC (4.0-11.0) th/mm3 RBC (4.50-5.90) mil/mm3 Hgb (13.0-17.0) gm/dL Hct (39.0-51.0) % MCV (80.0-100.0) fL MCH (27.0-34.0) pg MCHC (32.0-36.0) % RDW (11.6-17.2) % Plt Count (150-450) th/mm3 MPV (7.0-11.0) fL Neut % (Auto) (16.0-70.0) % Lymph % (Auto) (9.0-44.0) % [place] % (Auto) (0.0-8.0) % Eos % (Auto) (0.0-4.0) % Baso % (Auto) (0.0-2.0) % Neut # (Auto) (1.8-7.7) th/mm3 Lymph # (Auto) (1.0-4.8) th/mm3 [place] # (Auto) (0.0-0.9) th/mm3 Eos # (Auto) (0.0-0.4) th/mm3 Baso # (Auto) (0.0-0.2) th/mm3 WBC Differential Differential Comment PT (9.8-11.6) sec INR Ratio APTT (23.4-31.7) sec Sodium 140 (136-145) meq/L Potassium 4.6 (3.5-5.1) meq/L Chloride 113 H (98-107) meq/L Carbon Dioxide 14.7 L (21.0-32.0) meq/L Anion Gap 12 (5-15) meq/L BUN 68 H (7-18) mg/dL Creatinine 9.19 H (0.60-1.30) mg/dL Estimated GFR 6 L (>89) mL/min Random Glucose 68 L (74-106) mg/dL Calcium 5.9 L* (8.5-10.1) mg/dL Calcium Adj for Albumin 7.6 L (8.5-10.1) mg/dL Total Bilirubin 0.4 (0.2-1.0) mg/dL AST 21 (15-37) U/L ALT 23 (12-78) U/L Alkaline Phosphatase 89 (45-117) U/L Troponin I 0.04 (0.02-0.05) ng/mL Total Protein 4.5 L (6.4-8.2) g/dL Albumin 1.9 L (3.4-5.0) g/dL Blood Type Blood Type Recheck Antibody Screen Discharge Plan Discharge Order Discharge Orders: ED Use Only Admit Order (Routine); Ordered 09/11/18 Ordered By: Suresh Cerna Discharge Details Anticipated Discharge Date: 09/11/18 Physicians Team ED Provider: Suresh Cerna Primary Care Provider: Winston Roper Rxs /Orders / Referrals /Forms Prescriptions: No Action sulfamethoxazole-trimethoprim 400-80 mg Tablet 1.5 tab PO BID RF: 0 melatonin 3 mg Tablet 3 mg PO HS PRN (Reason: Insomnia) RF: 0 citalopram 20 mg Tablet 20 mg PO DAILY RF: 0 cephalexin 500 mg Capsule 500 mg PO QID RF: 0 warfarin 5 mg Tablet 5 mg PO DAILY RF: 0 B complex-vitamin C-folic acid [Jennifer-Phani] 0.8 mg Tablet 1 tab PO DAILY RF: 0 digoxin 125 mcg Tablet 0.125 mg PO 4XW RF: 0 midodrine 10 mg Tablet 10 mg PO 3XW RF: 0 metoprolol tartrate 25 mg Tablet 25 mg PO DAILY RF: 0 cinacalcet [Sensipar] 60 mg Tablet 60 mg PO HS RF: 0 sucroferric oxyhydroxide [Velphoro] 500 mg Tablet,Chewable 500 mg PO TID RF: 0 Discharge Interventions Interventions: Vital Signs Last Done: 09/11/18 09:29 Status ED Status: Admitted Patient
[2018-09-11 09:22] LABS: Baso # (Auto) 0.1 th/mm3 (0.0-0.2); Baso % (Auto) 0.9 % (0.0-2.0); Eos # (Auto) 0.3 th/mm3 (0.0-0.4); Eos % (Auto) 4.3 % (0.0-4.0); Hematocrit 47.3 % (39.0-51.0); Hemoglobin 16.3 gm/dL (13.0-17.0); Lymph # (Auto) 0.7 th/mm3 (1.0-4.8); Lymph % (Auto) 11.4 % (9.0-44.0); Mean Corpuscular HGB Conc 34.4 % (32.0-36.0); Mean Corpuscular Hemoglobin 32.5 pg (27.0-34.0); Mean Corpuscular Volume 94.6 fL (80.0-100.0); Mean Platelet Volume 7.1 fL (7.0-11.0); Mono # (Auto) 0.6 th/mm3 (0.0-0.9); Mono % (Auto) 10.4 % (0.0-8.0); Neut # (Auto) 4.5 th/mm3 (1.8-7.7); Platelet Count 172 th/mm3 (150-450); Red Blood Count 5.01 mil/mm3 (4.50-5.90); Red Cell Distribution Width 17.2 % (11.6-17.2); White Blood Count 6.1 th/mm3 (4.0-11.0)
[2018-09-11 10:26] LABS: Activated Partial Thrombo Time 63.2 sec (23.4-31.7); INR 4.8 Ratio; Prothrombin Time 47.7 sec (9.8-11.6)
[2018-09-11 10:41] LABS: Albumin 1.9 g/dL (3.4-5.0); Calcium 5.9 mg/dL (8.5-10.1); Carbon Dioxide 14.7 meq/L (21.0-32.0); Potassium 4.6 meq/L (3.5-5.1); Total Protein 4.5 g/dL (6.4-8.2); Troponin I 0.04 ng/mL (0.02-0.05)
[2018-09-11] MEDS ORDERED: Phytonadione 5 MG/SWFI 5 ML Oral Syringe PO ONE (11:01)
[2018-09-11] MEDS ORDERED: Sodium Chlor 0.9% Inj 250 ML IV.SIG SCH (12:00)
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
[2018-09-11] MEDS ORDERED: Albumin Human 25% Inj 100 ML IV.SIG PRN (14:05)
[2018-09-11] MEDS ORDERED: Acetaminophen 325 MG Tablet PO PRN (14:05)
[2018-09-11] MEDS ORDERED: Sod Chloride 0.9% Inj 1,000 ML IV.CONT PRN (14:05)
[2018-09-11] MEDS ORDERED: Heparin 10,000 UNITS/10 ML Vial (for IV use) OTHER PRN ×2 (14:05)
[2018-09-11] MEDS ORDERED: Sod Chloride 0.9% Inj 1,000 ML OTHER PRN ×2 (14:05)
--- NOTE | 2018-09-11 14:05 | P.CONNP ---
<Oralia Bar - Last Filed: 09/11/18 13:48> History of Present Illness Service: Nephrology Consult date: 09/11/18 Requesting Physician: Arpit Iniguez Reason for Consult: End stage renal disease on Hemodialysis Primary Care Provider: Winston Roper MD History of Present Illness: Patient is a 63 year old male with a past medical history of end stage renal disease on Hemodialysis, AFIB on Coumadin, hypertension, and anemia. Presented to the emergency room for further evaluation for increased weakness and melena stools. He reported that he has had problems with this over the last 6 months but has progressively gotten worse. Has never had GI bleed in past. INR found to be supratherapeutic at 4.8. Nephrology is consulted for management of dialysis followed by Dr. Roper outpatient. Has left upper ext AVF with positive thrill and Bruit. Hemodialysis days are on Wednesday, Wednesday, and Wednesday. Last hemodialysis was on Wednesday. Denies any shortness of breath, chest pain, fevers, or chills. Reports some nausea, vomiting, and abdominal tenderness. Review of Systems All other systems reviewed negative except as stated in HPI PMFSH - History History Provided By: Patient - Medical History Medical History: Medical History (Last Reviewed 09/11/18 @ 09:22 by Elena Carney RN) Afib CVA (cerebral vascular accident) HTN (hypertension) - Tobacco History Smoking Status: Refused to answer - Alcohol History How Often Do You Have a Drink Containing Alcohol: Never - Substance Use History Substance History: No History of Abuse - Travel History Recent Travel in the [place] Within the Last 8 Weeks: No Recent Travel Out of the Country Within the Last 8 Weeks: No - Immunization History Tetanus Immunization: Unsure Medications and Allergies Allergies Allergy/AdvReac Type Severity Reaction Status Date / Time bee venom protein (honey bee) Allergy Severe Anaphylaxis Verified 09/11/18 09:23 phenylephrine Allergy Severe Hives Verified 09/11/18 09:30 [From Contac-D Cold (PE)] Home Medications Medication Instructions Recorded Confirmed Type B complex-vitamin C-folic acid 1 tab PO DAILY 09/11/18 09/11/18 History [Jennifer-Phani] cephalexin 500 mg PO QID 09/11/18 09/11/18 History cinacalcet [Sensipar] 60 mg PO HS 09/11/18 09/11/18 History citalopram 20 mg PO DAILY 09/11/18 09/11/18 History digoxin 0.125 mg PO 4XW 09/11/18 09/11/18 History melatonin 3 mg PO HS PRN 09/11/18 09/11/18 History metoprolol tartrate 25 mg PO DAILY 09/11/18 09/11/18 History midodrine 10 mg PO 3XW 09/11/18 09/11/18 History sucroferric oxyhydroxide [Velphoro] 500 mg PO TID 09/11/18 09/11/18 History sulfamethoxazole-trimethoprim 1.5 tab PO BID 09/11/18 09/11/18 History warfarin 5 mg PO DAILY 09/11/18 09/11/18 History Active Medications: Active Medications Cinacalcet (Sensipar) 60 mg PO DAILY [facility] Citalopram Hydrobromide (Celexa) 20 mg PO DAILY [facility] Digoxin (Lanoxin) 125 mcg PO DAILY [facility] Sodium Chloride (Ns Inj) 250 mls @ 15 mls/hr IV.SIG ONCE [facility] Stop: 09/12/18 04:39 Metoprolol Tartrate (Lopressor) 25 mg PO BID [facility] Midodrine (Proamatine) 10 mg PO MoWeFr [facility] Pantoprazole Sodium (Protonix Inj) 40 mg IV.PUSH Q12H [facility] Sodium Chloride (Ns Flush) 2 ml IV.FLUSH PRN PRN PRN Reason: FLUSH AFTER USING IV ACCESS Last Admin: 09/11/18 09:24 Dose: 2 ml Trimethoprim/Sulfamethoxazole (Bactrim) 1 tab PO Q12HR [facility] Exam Vital signs: Vital Signs 09/11/18 09:19 09/11/18 09:24 09/11/18 09:29 Temperature 98.7 F Pulse Rate 100 H 111 H 114 H Respiratory Rate 16 16 Blood Pressure 111/61 114/64 Pulse Oximetry 98 98 98 09/11/18 12:50 09/11/18 13:00 Temperature 97.3 F L Pulse Rate 100 H 115 H Respiratory Rate 16 18 Blood Pressure 116/66 98/66 L Pulse Oximetry 98 95 Intake & Output 09/10/18 09/11/18 09/11/18 18:59 06:59 18:59 Intake Total 1000 / 1000 Balance 1000 / 1000 Weight 76 kg Intake: IV 1000 / 1000 NS Inj 1,000 ML @ Wide Open IV. 1000 / 1000 SIG BOLUS ONE Rx#:[id number] Other: Weight On Admission 76 kg Narrative: GENERAL: Alert and oriented. SKIN: Warm and dry. NECK: Supple, trachea midline. No JVD. CARDIOVASCULAR: Tachycardia. Regular rate and rhythm without murmurs, gallops, or rubs. Left upper arm AVF positive thrill and bruit. RESPIRATORY: Breath sounds equal bilaterally. No accessory muscle use. GASTROINTESTINAL: Abdomen soft, non-tender, nondistended. MUSCULOSKELETAL: No cyanosis, or edema. BACK: Nontender without obvious deformity. No CVA tenderness. Results - Lab Results 09/11/18 09:08 09/11/18 09:40 Most recent lab results Calcium 5.9 mg/dL (8.5-10.1) L* 09/11/18 09:40 Assessment and Plan - Assessment (1) End-stage renal disease on hemodialysis Code(s): N18.6 - End stage renal disease; Z99.2 - Dependence on renal dialysis Status: Acute Plan: Hemodialysis days are on Wednesday, Wednesday, and Wednesday followed by Dr. Roper outpatient. Has left upper ext AVF with positive thrill and Bruit. Last Hemodialysis on Wednesday Avoid gadolinium Continue Sensipar Midodrine on dialysis day for blood pressure support. Hemodialysis planned for tomorrow, orders placed. (2) GI bleed Code(s): K92.2 - Gastrointestinal hemorrhage, unspecified Status: Acute Plan: GI consulted, clear liquid diet. HGB at 16.3 (3) Afib Code(s): I48.91 - Unspecified atrial fibrillation Status: Acute Plan: HR in 100-120. On metoprolol. Coumadin on hold. Vitamin K given and FFP ordered for elevated INR. <Dewayne Cueto - Last Filed: 09/11/18 21:55> History of Present Illness Primary Care Provider: Winston Roper MD [facility] - Medical History Medical History: Medical History (Last Reviewed 09/11/18 @ 09:22 by Elena Carney RN) Afib CVA (cerebral vascular accident) HTN (hypertension) Medications and Allergies Active Medications: Active Medications Acetaminophen (Tylenol) 650 mg PO UNSCH PRN PRN Reason: SEE LABEL COMMENTS Cinacalcet (Sensipar) 60 mg PO DAILY [facility] Citalopram Hydrobromide (Celexa) 20 mg PO DAILY [facility] Clonidine HCl (Catapres) 0.1 mg PO UNSCH PRN PRN Reason: SEE LABEL COMMENTS Digoxin (Lanoxin) 125 mcg PO DAILY [facility] Diphenhydramine HCl (Benadryl) 25 mg PO UNSCH PRN PRN Reason: SEE LABEL COMMENTS Gelatin (Gelfoam 12 Mm/7 Mm Topical) 1 foam TOPICAL PRN PRN PRN Reason: help stop bleeding from site Gentamicin Sulfate (Gentamicin Inj) 20 mg OTHER WITH DIALYSIS PRN PRN Reason: Dwell Gentamycin Lock Heparin Sodium (Porcine) (Heparin Inj) 8,000 units OTHER WITH DIALYSIS PRN PRN Reason: for machine prime Heparin Sodium (Porcine) (Heparin Inj) 1,000 units OTHER WITH DIALYSIS PRN PRN Reason: Dwell Heparin to Fill Catheter Sodium Chloride (Ns Inj) 250 mls @ 15 mls/hr IV.SIG ONCE [facility] Stop: 09/12/18 04:39 Last Admin: 09/11/18 16:59 Dose: 15 mls/hr Albumin Human (Flexbumin 25% Inj) 100 mls @ 60 mls/hr IV.SIG WITH DIALYSIS PRN PRN Reason: hypotension / volume replace Sodium Chloride (Ns Inj) 1,000 mls @ 0 mls/hr OTHER .Q0M PRN PRN Reason: for prime and rinse back Sodium Chloride (Ns Inj) 1,000 mls @ 200 mls/hr OTHER .Q5H PRN PRN Reason: for dialyzer flush PRN Sodium Chloride (Ns Inj) 1,000 mls @ 0 mls/hr IV.CONT .Q0M PRN PRN Reason: hypotension / volume replace Mannitol (Mannitol Inj) 12.5 gm IV.PUSH UNSCH PRN PRN Reason: hypotension / volume replace Metoprolol Tartrate (Lopressor) 25 mg PO BID [facility] Last Admin: 09/11/18 21:49 Dose: 25 mg Midodrine (Proamatine) 10 mg PO MoWeFr [facility] Nitroglycerin (Nitrostat Sl) 0.4 mg SL Q5M PRN PRN Reason: CHEST PAIN Ondansetron HCl (Zofran Inj) 4 mg IV.PUSH UNSCH PRN PRN Reason: NAUSEA OR VOMITING Pantoprazole Sodium (Protonix Inj) 40 mg IV.PUSH Q12H [facility] Last Admin: 09/11/18 17:00 Dose: 40 mg Sodium Chloride (Ns Flush) 2 ml IV.FLUSH PRN PRN PRN Reason: FLUSH AFTER USING IV ACCESS Last Admin: 09/11/18 09:24 Dose: 2 ml Sodium Chloride (Ns Flush) 5 ml IV.FLUSH PRN PRN PRN Reason: flush each lumen during HD Trimethoprim/Sulfamethoxazole (Bactrim) 1 tab PO Q12HR [facility] Last Admin: 09/11/18 21:49 Dose: 1 tab Exam Vital signs: Vital Signs 09/11/18 09:19 09/11/18 09:24 09/11/18 09:29 Temperature 98.7 F Pulse Rate 100 H 111 H 114 H Respiratory Rate 16 16 Blood Pressure 111/61 114/64 Pulse Oximetry 98 98 98 09/11/18 12:50 09/11/18 13:00 09/11/18 15:43 Temperature 97.3 F L 98.7 F Pulse Rate 100 H 115 H 88 Respiratory Rate 16 18 20 Blood Pressure 116/66 98/66 L 111/62 Pulse Oximetry 98 95 09/11/18 16:00 09/11/18 19:00 Temperature 97.2 F L 97.3 F L Pulse Rate 112 H 104 H Respiratory Rate 18 18 Blood Pressure 121/74 123/74 Pulse Oximetry 94 L 92 L Intake & Output 09/11/18 09/11/1818 06:59 18:59 06:59 Intake Total 1510 / 1510 Balance 1510 / 1510 Weight 76 kg Intake: IV 1000 / 1000 NS Inj 1,000 ML @ Wide Open IV. 1000 / 1000 SIG BOLUS ONE Rx#:[id number] Oral 240 / 240 Other 50 / 50 Plasma Thawed 5 Day Acda Unit 50 / 50 [id number] Intake (Blood Product) Amt 220 / 220 Plasma Thawed 5 Day Acda Unit 220 / 220 [id number] Other: Weight On Admission 76 kg Results - Lab Results 09/11/18 09:08 09/11/18 09:40 Most recent lab results Calcium 5.9 mg/dL (8.5-10.1) L* 09/11/18 09:40 Assessment and Plan - Assessment (1) End-stage renal disease on hemodialysis Code(s): N18.6 - End stage renal disease; Z99.2 - Dependence on renal dialysis Status: Acute Plan: Patient seen and examined, agree with above. Patient has no urgent indication for Dialysis. HD will be in AM. Dr. Chisholm will follow from AM. (2) GI bleed Code(s): K92.2 - Gastrointestinal hemorrhage, unspecified Status: Acute (3) Afib Code(s): I48.91 - Unspecified atrial fibrillation Status: Acute
--- NOTE | 2018-09-11 16:02 | P.CONGI ---
History of Present Illness Consult date: 09/11/18 Consult reason: GI bleed Chief complaint: GI Bleed/CFR History of Present Illness: This patient is a 63-year-old male with past medical history significant for end-stage renal disease on hemodialysis, atrial fibrillation and hypertension. Past surgical history significant for metal removed from back, and left upper extremity AV fistula. Patient states hemodialysis treatments are every Wednesday and Wednesday. Patient was sent to [facility] from a prison facility with reported black stools onset 1 month ago. Patient states he has been experiencing generalized weakness and has noted no abdominal pain fevers or chills. Patient denies any chest pain or shortness of breath. Denies nausea or vomiting. Patient currently on Coumadin for atrial fibrillation. Upon admission, INR found to be supra therapeutic at 4.8. Patient states last EGD done in December 2017 revealed gastric ulcer. Our service has been consulted to evaluate patient for GI bleeding. <Melly Carter - Last Filed: 09/11/18 16:03> Review of Systems All other systems reviewed negative except as stated in HPI <Melly Carter - Last Filed: 09/11/18 16:03> PMFSH - History History Provided By: Patient - Medical History Medical History: Medical History (Last Reviewed 09/11/18 @ 09:22 by Elena Carney RN) Afib CVA (cerebral vascular accident) HTN (hypertension) - Tobacco History Smoking Status: Refused to answer - Alcohol History How Often Do You Have a Drink Containing Alcohol: Never - Substance Use History Substance History: No History of Abuse - Travel History Recent Travel in the [place] Within the Last 8 Weeks: No Recent Travel Out of the Country Within the Last 8 Weeks: No - Immunization History Tetanus Immunization: Unsure <Melly Carter - Last Filed: 09/11/18 16:03> - Medical History Medical History: Medical History (Last Reviewed 09/11/18 @ 09:22 by Elena Carney RN) Afib CVA (cerebral vascular accident) HTN (hypertension) <Abebe Houston - Last Filed: 09/12/18 09:01> Medications and Allergies Active Medications: Active Medications Acetaminophen (Tylenol) 650 mg PO UNSCH PRN PRN Reason: SEE LABEL COMMENTS Cinacalcet (Sensipar) 60 mg PO DAILY YAMILETH Citalopram Hydrobromide (Celexa) 20 mg PO DAILY YAMILETH Clonidine HCl (Catapres) 0.1 mg PO UNSCH PRN PRN Reason: SEE LABEL COMMENTS Digoxin (Lanoxin) 125 mcg PO DAILY YAMILETH Diphenhydramine HCl (Benadryl) 25 mg PO UNSCH PRN PRN Reason: SEE LABEL COMMENTS Gelatin (Gelfoam 12 Mm/7 Mm Topical) 1 foam TOPICAL PRN PRN PRN Reason: help stop bleeding from site Gentamicin Sulfate (Gentamicin Inj) 20 mg OTHER WITH DIALYSIS PRN PRN Reason: Dwell Gentamycin Lock Heparin Sodium (Porcine) (Heparin Inj) 8,000 units OTHER WITH DIALYSIS PRN PRN Reason: for machine prime Heparin Sodium (Porcine) (Heparin Inj) 1,000 units OTHER WITH DIALYSIS PRN PRN Reason: Dwell Heparin to Fill Catheter Sodium Chloride (Ns Inj) 250 mls @ 15 mls/hr IV.SIG ONCE YAMILETH Stop: 09/12/18 04:39 Albumin Human (Flexbumin 25% Inj) 100 mls @ 60 mls/hr IV.SIG WITH DIALYSIS PRN PRN Reason: hypotension / volume replace Sodium Chloride (Ns Inj) 1,000 mls @ 0 mls/hr OTHER .Q0M PRN PRN Reason: for prime and rinse back Sodium Chloride (Ns Inj) 1,000 mls @ 200 mls/hr OTHER .Q5H PRN PRN Reason: for dialyzer flush PRN Sodium Chloride (Ns Inj) 1,000 mls @ 0 mls/hr IV.CONT .Q0M PRN PRN Reason: hypotension / volume replace Mannitol (Mannitol Inj) 12.5 gm IV.PUSH UNSCH PRN PRN Reason: hypotension / volume replace Metoprolol Tartrate (Lopressor) 25 mg PO BID YAMILETH Midodrine (Proamatine) 10 mg PO MoWeFr YAMILETH Nitroglycerin (Nitrostat Sl) 0.4 mg SL Q5M PRN PRN Reason: CHEST PAIN Ondansetron HCl (Zofran Inj) 4 mg IV.PUSH UNSCH PRN PRN Reason: NAUSEA OR VOMITING Pantoprazole Sodium (Protonix Inj) 40 mg IV.PUSH Q12H YAMILETH Sodium Chloride (Ns Flush) 2 ml IV.FLUSH PRN PRN PRN Reason: FLUSH AFTER USING IV ACCESS Last Admin: 09/11/18 09:24 Dose: 2 ml Sodium Chloride (Ns Flush) 5 ml IV.FLUSH PRN PRN PRN Reason: flush each lumen during HD Trimethoprim/Sulfamethoxazole (Bactrim) 1 tab PO Q12HR [facility] <CarterMelly - Last Filed: 09/11/18 16:03> Active Medications: Active Medications Acetaminophen (Tylenol) 650 mg PO UNSCH PRN PRN Reason: SEE LABEL COMMENTS Cinacalcet (Sensipar) 60 mg PO DAILY [facility] Citalopram Hydrobromide (Celexa) 20 mg PO DAILY [facility] Clonidine HCl (Catapres) 0.1 mg PO UNSCH PRN PRN Reason: SEE LABEL COMMENTS Digoxin (Lanoxin) 125 mcg PO DAILY Y[facility]TH Diphenhydramine HCl (Benadryl) 25 mg PO UNSCH PRN PRN Reason: SEE LABEL COMMENTS Gelatin (Gelfoam 12 Mm/7 Mm Topical) 1 foam TOPICAL PRN PRN PRN Reason: help stop bleeding from site Gentamicin Sulfate (Gentamicin Inj) 20 mg OTHER WITH DIALYSIS PRN PRN Reason: Dwell Gentamycin Lock Heparin Sodium (Porcine) (Heparin Inj) 8,000 units OTHER WITH DIALYSIS PRN PRN Reason: for machine prime Heparin Sodium (Porcine) (Heparin Inj) 1,000 units OTHER WITH DIALYSIS PRN PRN Reason: Dwell Heparin to Fill Catheter Albumin Human (Flexbumin 25% Inj) 100 mls @ 60 mls/hr IV.SIG WITH DIALYSIS PRN PRN Reason: hypotension / volume replace Sodium Chloride (Ns Inj) 1,000 mls @ 0 mls/hr OTHER .Q0M PRN PRN Reason: for prime and rinse back Sodium Chloride (Ns Inj) 1,000 mls @ 200 mls/hr OTHER .Q5H PRN PRN Reason: for dialyzer flush PRN Sodium Chloride (Ns Inj) 1,000 mls @ 0 mls/hr IV.CONT .Q0M PRN PRN Reason: hypotension / volume replace Mannitol (Mannitol Inj) 12.5 gm IV.PUSH UNSCH PRN PRN Reason: hypotension / volume replace Metoprolol Tartrate (Lopressor) 25 mg PO BID [facility] Last Admin: 09/11/18 21:49 Dose: 25 mg Midodrine (Proamatine) 10 mg PO MoWeFr [facility] Nitroglycerin (Nitrostat Sl) 0.4 mg SL Q5M PRN PRN Reason: CHEST PAIN Ondansetron HCl (Zofran Inj) 4 mg IV.PUSH UNSCH PRN PRN Reason: NAUSEA OR VOMITING Pantoprazole Sodium (Protonix Inj) 40 mg IV.PUSH Q12H [facility] Last Admin: 09/12/18 03:43 Dose: 40 mg Sodium Chloride (Ns Flush) 2 ml IV.FLUSH PRN PRN PRN Reason: FLUSH AFTER USING IV ACCESS Last Admin: 09/12/18 03:44 Dose: 2 ml Sodium Chloride (Ns Flush) 5 ml IV.FLUSH PRN PRN PRN Reason: flush each lumen during HD Trimethoprim/Sulfamethoxazole (Bactrim) 1 tab PO Q12HR [facility] Last Admin: 09/11/18 21:49 Dose: 1 tab <Abebe Houston - Last Filed: 09/12/18 09:01> Allergies Allergy/AdvReac Type Severity Reaction Status Date / Time bee venom protein (honey bee) Allergy Severe Anaphylaxis Verified 09/11/18 09:23 phenylephrine Allergy Severe Hives Verified 09/11/18 09:30 [From Contac-D Cold (PE)] Home Medications Medication Instructions Recorded Confirmed Type B complex-vitamin C-folic acid 1 tab PO DAILY 09/11/18 09/11/18 History [Jennifer-Phani] cephalexin 500 mg PO QID 09/11/18 09/11/18 History cinacalcet [Sensipar] 60 mg PO HS 09/11/18 09/11/18 History citalopram 20 mg PO DAILY 09/11/18 09/11/18 History digoxin 0.125 mg PO 4XW 09/11/18 09/11/18 History melatonin 3 mg PO HS PRN 09/11/18 09/11/18 History metoprolol tartrate 25 mg PO DAILY 09/11/18 09/11/18 History midodrine 10 mg PO 3XW 09/11/18 09/11/18 History sucroferric oxyhydroxide [Velphoro] 500 mg PO TID 09/11/18 09/11/18 History sulfamethoxazole-trimethoprim 1.5 tab PO BID 09/11/18 09/11/18 History warfarin 5 mg PO DAILY 09/11/18 09/11/18 History Exam Vital signs: Vital Signs 09/11/18 09:19 18 09:24 09/11/18 09:29 Temperature 98.7 F Pulse Rate 100 H 111 H 114 H Respiratory Rate 16 16 Blood Pressure 111/61 114/64 Pulse Oximetry 98 98 98 09/11/18 12:50 09/11/18 13:00 09/11/18 15:43 Temperature 97.3 F L 98.7 F Pulse Rate 100 H 115 H 88 Respiratory Rate 16 18 20 Blood Pressure 116/66 98/66 L 111/62 Pulse Oximetry 98 95 Intake & Output 09/10/18 09/11/18 09/11/18 18:59 06:59 18:59 Intake Total 1000 / 1000 Balance 1000 / 1000 Weight 76 kg Intake: IV 1000 / 1000 NS Inj 1,000 ML @ Wide Open IV. 1000 / 1000 SIG BOLUS ONE Rx#:[id number] Intake (Blood Product) Amt 0 / 0 Plasma Thawed 5 Day Acda Unit 0 / 0 [id number] Other: Weight On Admission 76 kg - Constitutional chronically ill appearing, cooperative - Routine Respiratory Exam Present: CTA bilaterally. Absent: accessory muscle use - Routine Cardiovascular Exam Present: S1, S2 - Routine Abdominal Exam Present: soft, normoactive bowel sounds. Absent: tenderness, distended, guarding, firm - Routine Extremities Exam Present: AV fistula. Absent: edema - Routine Skin Exam Present: dry, warm - Routine Neurological Exam Present: alert <Carter,Melly - Last Filed: 09/11/18 16:03> Vital signs: Vital Signs 09/11/18 09:19 09/11/18 09:24 09/11/18 09:29 Temperature 98.7 F Pulse Rate 100 H 111 H 114 H Respiratory Rate 16 16 Blood Pressure 111/61 114/64 Pulse Oximetry 98 98 98 09/11/18 12:50 09/11/18 13:00 09/11/18 15:43 Temperature 97.3 F L 98.7 F Pulse Rate 100 H 115 H 88 Respiratory Rate 16 18 20 Blood Pressure 116/66 98/66 L 111/62 Pulse Oximetry 98 95 09/11/18 16:00 09/11/18 19:00 09/11/18 19:45 Temperature 97.2 F L 97.3 F L Pulse Rate 112 H 104 H 116 H Respiratory Rate 18 18 Blood Pressure 121/74 123/74 Pulse Oximetry 94 L 92 L 09/11/18 21:45 09/11/18 23:16 09/12/18 00:00 Temperature 97.4 F L Pulse Rate 110 H 119 H Respiratory Rate 18 Blood Pressure 101/63 Pulse Oximetry 92 L 93 L 09/12/18 03:16 09/12/18 04:01 Temperature 97.8 F Pulse Rate 112 H 125 H Respiratory Rate 19 Blood Pressure 113/74 Pulse Oximetry 93 L Intake & Output 09/11/18 09/12/18 09/12/18 18:59 06:59 18:59 Intake Total 1510 / 1510 0 / 0 Balance 1510 / 1510 0 / 0 Weight 76 kg 76 kg Intake: IV 1000 / 1000 NS Inj 1,000 ML @ Wide Open IV. 1000 / 1000 SIG BOLUS ONE Rx#:[id number] Oral 240 / 240 0 / 0 Other 50 / 50 Plasma Thawed 5 Day Acda Unit 50 / 50 [id number] Intake (Blood Product) Amt 220 / 220 Plasma Thawed 5 Day Acda Unit 220 / 220 [id number] Other: # Voids 0 Date of Last Bowel Movement 09/11/18 # Bowel Movements 0 Weight On Admission 76 kg <Abebe Houston - Last Filed: 09/12/18 09:01> Results - Labs CBC & Chem 7: 09/11/18 09:08 09/11/18 09:40 Labs: Laboratory Results - last 24 hr 09/11/18 09/11/18 09/11/18 09:08 09:08 09:40 WBC 6.1 RBC 5.01 Hgb 16.3 Hct 47.3 MCV 94.6 MCH 32.5 MCHC 34.4 RDW 17.2 Plt Count 172 MPV 7.1 Neut % (Auto) 73.0 H Lymph % (Auto) 11.4 [place] % (Auto) 10.4 H Eos % (Auto) 4.3 H Baso % (Auto) 0.9 Neut # (Auto) 4.5 Lymph # (Auto) 0.7 L [place] # (Auto) 0.6 Eos # (Auto) 0.3 Baso # (Auto) 0.1 WBC Differential . Differential Comment Auto diff final PT 47.7 H INR 4.8 APTT 63.2 H Sodium Potassium Chloride Carbon Dioxide Anion Gap BUN Creatinine Estimated GFR Random Glucose Calcium Calcium Adj for Albumin Total Bilirubin AST ALT Alkaline Phosphatase Troponin I Total Protein Albumin Blood Type A Positive Blood Type Recheck Required Antibody Screen Negative Blood Bank Comment 09/11/18 09/11/18 09:40 11:57 WBC RBC Hgb Hct MCV MCH MCHC RDW Plt Count MPV Neut % (Auto) Lymph % (Auto) [place] % (Auto) Eos % (Auto) Baso % (Auto) Neut # (Auto) Lymph # (Auto) [place] # (Auto) Eos # (Auto) Baso # (Auto) WBC Differential Differential Comment PT INR APTT Sodium 140 Potassium 4.6 Chloride 113 H Carbon Dioxide 14.7 L Anion Gap 12 BUN 68 H Creatinine 9.19 H Estimated GFR 6 L Random Glucose 68 L Calcium 5.9 L* Calcium Adj for Albumin 7.6 L Total Bilirubin 0.4 AST 21 ALT 23 Alkaline Phosphatase 89 Troponin I 0.04 Total Protein 4.5 L Albumin 1.9 L Blood Type Blood Type Recheck Antibody Screen Blood Bank Comment <Melly Carter - Last Filed: 09/11/18 16:03> - Labs CBC & Chem 7: 09/12/18 04:32 09/12/18 04:32 Labs: Laboratory Results - last 24 hr 09/11/18 09/11/18 09/11/18 09:08 09:08 09:40 WBC 6.1 RBC 5.01 Hgb 16.3 Hct 47.3 MCV 94.6 MCH 32.5 MCHC 34.4 RDW 17.2 Plt Count 172 MPV 7.1 Neut % (Auto) 73.0 H Lymph % (Auto) 11.4 [place] % (Auto) 10.4 H Eos % (Auto) 4.3 H Baso % (Auto) 0.9 Neut # (Auto) 4.5 Lymph # (Auto) 0.7 L [place] # (Auto) 0.6 Eos # (Auto) 0.3 Baso # (Auto) 0.1 WBC Differential . Differential Comment Auto diff final PT 47.7 H INR 4.8 APTT 63.2 H Sodium Potassium Chloride Carbon Dioxide Anion Gap BUN Creatinine Estimated GFR POC Glucose Random Glucose Calcium Calcium Adj for Albumin Total Bilirubin AST ALT Alkaline Phosphatase Troponin I Total Protein Albumin Hepatitis A IgM Ab Hep Bs Antigen Hep B Core IgM Ab Hep C IgG Ab Blood Type A Positive Blood Type Recheck Required Antibody Screen Negative Blood Bank Comment 09/11/18 09/11/18 09/11/18 09:40 11:57 15:36 WBC RBC Hgb Hct MCV MCH MCHC RDW Plt Count MPV Neut % (Auto) Lymph % (Auto) [place] % (Auto) Eos % (Auto) Baso % (Auto) Neut # (Auto) Lymph # (Auto) [place] # (Auto) Eos # (Auto) Baso # (Auto) WBC Differential Differential Comment PT INR APTT Sodium 140 Potassium 4.6 Chloride 113 H Carbon Dioxide 14.7 L Anion Gap 12 BUN 68 H Creatinine 9.19 H Estimated GFR 6 L POC Glucose Random Glucose 68 L Calcium 5.9 L* Calcium Adj for Albumin 7.6 L Total Bilirubin 0.4 AST 21 ALT 23 Alkaline Phosphatase 89 Troponin I 0.04 Total Protein 4.5 L Albumin 1.9 L Hepatitis A IgM Ab Nonreactive Hep Bs Antigen Nonreactive Hep B Core IgM Ab Nonreactive Hep C IgG Ab Nonreactive Blood Type Blood Type Recheck Antibody Screen Blood Bank Comment 09/12/18 09/12/18 09/12/18 04:32 04:32 04:32 WBC 5.9 RBC 4.73 Hgb 15.1 Hct 45.0 MCV 95.0 MCH 32.0 MCHC 33.6 RDW 17.1 Plt Count 183 MPV 7.1 Neut % (Auto) 74.3 H Lymph % (Auto) 10.3 [place] % (Auto) 11.0 H Eos % (Auto) 3.6 Baso % (Auto) 0.8 Neut # (Auto) 4.4 Lymph # (Auto) 0.6 L [place] # (Auto) 0.6 Eos # (Auto) 0.2 Baso # (Auto) 0.0 WBC Differential . Differential Comment Auto diff final PT 22.7 H D INR 2.2 APTT Sodium 134 L Potassium 6.7 H* D Chloride 102 D Carbon Dioxide 17.5 L Anion Gap 15 BUN 85 H Creatinine 12.32 H* D Estimated GFR 4 L POC Glucose Random Glucose 50 L Calcium 8.3 L D Calcium Adj for Albumin Total Bilirubin 1.0 AST 29 ALT 29 Alkaline Phosphatase 126 H Troponin I Total Protein 6.5 D Albumin 2.8 L D Hepatitis A IgM Ab Hep Bs Antigen Hep B Core IgM Ab Hep C IgG Ab Blood Type Blood Type Recheck Antibody Screen Blood Bank Comment 09/12/18 09/12/18 08:39 08:53 WBC RBC Hgb Hct MCV MCH MCHC RDW Plt Count MPV Neut % (Auto) Lymph % (Auto) [place] % (Auto) Eos % (Auto) Baso % (Auto) Neut # (Auto) Lymph # (Auto) [place] # (Auto) Eos # (Auto) Baso # (Auto) WBC Differential Differential Comment PT INR APTT Sodium Potassium Chloride Carbon Dioxide Anion Gap BUN Creatinine Estimated GFR POC Glucose 49 L* 52 L Random Glucose Calcium Calcium Adj for Albumin Total Bilirubin AST ALT Alkaline Phosphatase Troponin I Total Protein Albumin Hepatitis A IgM Ab Hep Bs Antigen Hep B Core IgM Ab Hep C IgG Ab Blood Type Blood Type Recheck Antibody Screen Blood Bank Comment <Abebe Houston - Last Filed: 09/12/18 09:01> Assessment and Plan (1) GI bleed Status: Acute Code(s): K92.2 - Gastrointestinal hemorrhage, unspecified - Plan This patient is a 63-year-old male with past medical history significant for end-stage renal disease on hemodialysis, atrial fibrillation and hypertension. Past surgical history significant for metal removed from back, and left upper extremity AV fistula. Patient states hemodialysis treatments are every Wednesday and Wednesday. Patient was sent to [facility] from a prison facility with reported black stools onset 1 month ago. Patient states he has been experiencing generalized weakness and has noted no abdominal pain fevers or chills. Patient denies any chest pain or shortness of breath. Denies nausea or vomiting. Patient currently on Coumadin for atrial fibrillation. Upon admission, INR found to be supra therapeutic at 4.8. Patient states last EGD done in December 2017 revealed gastric ulcer. Our service has been consulted to evaluate patient for GI bleeding. GI bleed INR 4.8 History of gastric ulcer Patient endorses black stools times 1 month. Patient with known ulcer disease diagnosed in December 2017. Denies any hematemesis. Currently on Coumadin for atrial fibrillation with INR 4.8. -WBC 6.1 hemoglobin 16.3 hematocrit 47.3 platelet count 172 -BUN 68 creatinine 9.1 GFR 6 calcium 5.9 total bilirubin 0.4 AST 21 ALT 23 alk phos 89 albumin 1.9 Plan -Clear liquid diet -Monitor for bleeding -Monitor hemoglobin hematocrit -Stabilize electrolytes -Correct INR -PPI -We will reassess patient post dialysis treatment tomorrow -Supportive care -Avoid NSAIDs and anticoagulants -Further recommendations to follow This patient has been seen by myself and and this note is written on his behalf - Attending Attestation Dr. Houston <Melly Carter - Last Filed: 09/11/18 16:03> (1) GI bleed Status: Acute Code(s): K92.2 - Gastrointestinal hemorrhage, unspecified - Attending Attestation The patient was seen and examined. Agree with above. <Abebe Houston - Last Filed: 09/12/18 09:01>
[2018-09-11 16:42] LABS: Hepatitits B Surface Antigen Nonreactive (Nonreactive)
[2018-09-11] MEDS: Pantoprazole Inj 40 MG Vial IV.PUSH SCH (17:00)
[2018-09-11 17:14] LABS: Hepatitis A IgM Antibody Nonreactive (Nonreactive)
[2018-09-11] MEDS: Sulfamethoxazole/Trimethoprim 400/80 MG Tablet PO SCH (21:49)
[2018-09-11] MEDS: Metoprolol Tartrate 25 MG Tablet PO SCH (21:49)
[2018-09-12] MEDS: Pantoprazole Inj 40 MG Vial IV.PUSH SCH ×2 (03:43→16:42)
[2018-09-12 05:42] LABS: Baso % (Auto) 0.8 % (0.0-2.0); Eos # (Auto) 0.2 th/mm3 (0.0-0.4); Eos % (Auto) 3.6 % (0.0-4.0); Hemoglobin 15.1 gm/dL (13.0-17.0); Lymph # (Auto) 0.6 th/mm3 (1.0-4.8); Lymph % (Auto) 10.3 % (9.0-44.0); Mean Corpuscular HGB Conc 33.6 % (32.0-36.0); Mean Platelet Volume 7.1 fL (7.0-11.0); Mono # (Auto) 0.6 th/mm3 (0.0-0.9); Neut # (Auto) 4.4 th/mm3 (1.8-7.7); Neut % (Auto) 74.3 % (16.0-70.0); Platelet Count 183 th/mm3 (150-450); Red Blood Count 4.73 mil/mm3 (4.50-5.90); Red Cell Distribution Width 17.1 % (11.6-17.2); White Blood Count 5.9 th/mm3 (4.0-11.0)
[2018-09-12 05:43] LABS: INR 2.2 Ratio; Prothrombin Time 22.7 sec (9.8-11.6)
[2018-09-12 06:01] LABS: Alanine Aminotransferase 29 U/L (12-78); Albumin 2.8 g/dL (3.4-5.0); Alkaline Phosphatase 126 U/L (45-117); Anion Gap 15 meq/L (5-15); Aspartate Aminotransferase 29 U/L (15-37); Blood Urea Nitrogen 85 mg/dL (7-18); Calcium 8.3 mg/dL (8.5-10.1); Carbon Dioxide 17.5 meq/L (21.0-32.0); Chloride 102 meq/L (98-107); Glomerular Filtration Rate 4 mL/min (>89); Glucose,Random 50 mg/dL (74-106); Sodium 134 meq/L (136-145); Total Protein 6.5 g/dL (6.4-8.2)
[2018-09-12 06:09] LABS: Potassium 6.7 meq/L (3.5-5.1)
[2018-09-12] MEDS: Digoxin 125 MCG Tablet PO SCH (09:19)
[2018-09-12] MEDS: Sulfamethoxazole/Trimethoprim 400/80 MG Tablet PO SCH ×2 (09:19→22:25)
[2018-09-12] MEDS: Citalopram 20 MG Tablet PO SCH (09:19)
[2018-09-12] MEDS: Metoprolol Tartrate 25 MG Tablet PO SCH ×3 (09:19→22:27)
[2018-09-12] MEDS: Sodium Chloride 23.4% Inj 154 MEQ in Dextrose 10% in Water Inj 1,000 ML IV.CONT SCH ×2 (10:42)
--- NOTE | 2018-09-12 11:03 | P.PNNP ---
Subjective Interval history: Patient was seen, no distress. Patient gets dialysis MWF. Patient to be dialyzed today. Patient's K is 6.7, should improve with dialysis. IV fluids changed to D10. Dr. Parry consulted to rule out Hemochromatosis. Patient has history of high hemoglobin and hematocrit. <Lidia Gleason - Last Filed: 09/12/18 11:03> Physical Exam Vital signs: Vital Signs 09/11/18 12:50 09/11/18 13:00 09/11/18 15:43 Temperature 97.3 F L 98.7 F Pulse Rate 100 H 115 H 88 Respiratory Rate 16 18 20 Blood Pressure 116/66 98/66 L 111/62 Pulse Oximetry 98 95 09/11/18 16:00 09/11/18 19:00 09/11/18 19:45 Temperature 97.2 F L 97.3 F L Pulse Rate 112 H 104 H 116 H Respiratory Rate 18 18 Blood Pressure 121/74 123/74 Pulse Oximetry 94 L 92 L 09/11/18 21:45 09/11/18 23:16 09/12/18 00:00 Temperature 97.4 F L Pulse Rate 110 H 119 H Respiratory Rate 18 Blood Pressure 101/63 Pulse Oximetry 92 L 93 L 09/12/18 03:16 09/12/18 04:01 09/12/18 08:36 Temperature 97.8 F 97.2 F L Pulse Rate 112 H 125 H 123 H Respiratory Rate 19 23 Blood Pressure 113/74 120/76 Pulse Oximetry 93 L 95 Intake & Output 09/11/18 09/12/18 09/12/18 18:59 06:59 18:59 Intake Total 1510 / 1510 0 / 0 Balance 1510 / 1510 0 / 0 Weight 76 kg 76 kg 76.5 kg Intake: IV 1000 / 1000 NS Inj 1,000 ML @ Wide Open IV. 1000 / 1000 SIG BOLUS ONE Rx#:[id number] Oral 240 / 240 0 / 0 Other 50 / 50 Plasma Thawed 5 Day Acda Unit 50 / 50 [id number] Intake (Blood Product) Amt 220 / 220 Plasma Thawed 5 Day Acda Unit 220 / 220 [id number] Other: # Voids 0 Date of Last Bowel Movement 09/11/18 09/12/18 # Bowel Movements 0 Weight On Admission 76 kg - Constitutional no acute distress - Routine HEENT Exam Head: Present: normocephalic Eye: Present: EOMI, PERRL ENT: Present: mucous membranes moist - Routine Neck Exam Present: trachea midline. Absent: tracheal deviation - Routine Respiratory Exam Absent: accessory muscle use - Routine Cardiovascular Exam Present: irregularly irregular - Routine Extremities Exam Present: AV fistula. Absent: edema - Routine Skin Exam Present: erythema - Routine Neurological Exam Present: alert - Routine Psychiatric Exam Present: normal affect <Lidia Gleason - Last Filed: 09/12/18 11:03> Vital signs: Vital Signs 09/12/18 08:36 09/12/18 09:00 09/12/18 16:24 Temperature 97.2 F L 97.8 F Pulse Rate 123 H 125 H 115 H Respiratory Rate 23 22 Blood Pressure 120/76 110/76 Pulse Oximetry 95 95 09/12/18 19:54 09/12/18 20:00 09/13/18 00:00 Temperature 97.9 F 98.6 F Pulse Rate 120 H 121 H 117 H Respiratory Rate 19 18 Blood Pressure 102/56 L 100/57 L Pulse Oximetry 95 95 09/13/18 00:17 09/13/18 04:00 09/13/18 08:00 Temperature 97.7 F 97.3 F L Pulse Rate 117 H 105 H 120 H Respiratory Rate 18 18 Blood Pressure 104/70 110/57 L Pulse Oximetry 98 95 Intake & Output 09/12/18 09/13/18 09/13/18 18:59 06:59 18:59 Intake Total 720 / 720 1238.5 / 1238.5 Output Total 1000 / 1000 600 / 600 Balance -280 / -280 638.5 / 638.5 Weight 76.5 kg 76.7 kg Intake: IV 1038.5 / 1038.5 Sodium Chloride 23.4% Inj 154 1038.5 / 1038.5 MEQ In D10W Inj 1,000 ML @ 50 mls/hr IV.CONT .[id number] [facility] Rx# :[id number] Oral 720 / 720 200 / 200 Output: Urine 0 / 0 600 / 600 Hemodialysis Amount 1000 / 1000 Other: Date of Last Bowel Movement 09/12/18 09/12/18 # Bowel Movements 3 2 <Varun Chisholm - Last Filed: 09/13/18 08:29> Assessment and Plan - Assessment (1) End-stage renal disease on hemodialysis Code(s): N18.6 - End stage renal disease; Z99.2 - Dependence on renal dialysis Status: Acute Plan: Patient gets dialysis MWF. Patient to be dialyzed today. Patient's K is 6.7, should improve with dialysis. IV fluids changed to D10. Monitor fluid and electrolytes. Avoid nephrotoxic agents. Avoid BP measurements or blood draws in L arm, AVF. (2) GI bleed Code(s): K92.2 - Gastrointestinal hemorrhage, unspecified Status: Acute Plan: GI consulted, clear liquid diet. Hematology consulted to rule out Hemochromatosis. Patient has history of high hemoglobin and hematocrit. (3) Afib Code(s): I48.91 - Unspecified atrial fibrillation Status: Acute Plan: On metoprolol. Coumadin on hold. <Lidia Gleason - Last Filed: 09/12/18 11:03> - Assessment (1) End-stage renal disease on hemodialysis Code(s): N18.6 - End stage renal disease; Z99.2 - Dependence on renal dialysis Status: Acute (2) GI bleed Code(s): K92.2 - Gastrointestinal hemorrhage, unspecified Status: Acute (3) Afib Code(s): I48.91 - Unspecified atrial fibrillation Status: Acute - Attending Attestation patient was seen and examined. Agree with above assessment and plan. Consult Hematology to rule out PV. <Varun Chisholm - Last Filed: 09/13/18 08:29>
[2018-09-12 11:54] LABS: Phosphorus 8.6 mg/dL (2.5-4.9)
--- NOTE | 2018-09-12 15:24 | P.PNIM ---
Subjective Interval history: Patient in no acute distress currently. Reported hypoglycemic episode and drowsy this morning. Pt is now awake and alert, responding to questions and commands appropriately. Physical Exam Vital signs: Vital Signs 09/11/18 15:43 09/11/18 16:00 09/11/18 19:00 Temperature 98.7 F 97.2 F L 97.3 F L Pulse Rate 88 112 H 104 H Respiratory Rate 20 18 18 Blood Pressure 111/62 121/74 123/74 Pulse Oximetry 94 L 92 L 09/11/18 19:45 09/11/18 21:45 09/11/18 23:16 Temperature 97.4 F L Pulse Rate 116 H 110 H Respiratory Rate 18 Blood Pressure 101/63 Pulse Oximetry 92 L 93 L 09/12/18 00:00 09/12/18 03:16 09/12/18 04:01 Temperature 97.8 F Pulse Rate 119 H 112 H 125 H Respiratory Rate 19 Blood Pressure 113/74 Pulse Oximetry 93 L 09/12/18 08:36 09/12/18 09:00 Temperature 97.2 F L Pulse Rate 123 H 125 H Respiratory Rate 23 Blood Pressure 120/76 Pulse Oximetry 95 Intake & Output 09/11/18 09/12/18 09/12/18 18:59 06:59 18:59 Intake Total 1510 / 1510 0 / 0 Balance 1510 / 1510 0 / 0 Weight 76 kg 76 kg 76.5 kg Intake: IV 1000 / 1000 NS Inj 1,000 ML @ Wide Open IV. 1000 / 1000 SIG BOLUS ONE Rx#:[id number] Oral 240 / 240 0 / 0 Other 50 / 50 Plasma Thawed 5 Day Acda Unit 50 / 50 [id number] Intake (Blood Product) Amt 220 / 220 Plasma Thawed 5 Day Acda Unit 220 / 220 [id number] Other: # Voids 0 Date of Last Bowel Movement 09/11/18 09/12/18 # Bowel Movements 0 Weight On Admission 76 kg Narrative: alert and oriented x 3 S1S2 irregularly irregular CTA B/L Soft nt, non distended, normal bowel sounds No edema of exts, Right heel ulcer, no drainage. patient has weakness of his lower exts, he says he does not ambulate Results - Labs CBC & Chem 7: 09/12/18 04:32 09/12/18 11:20 Laboratory Results - last 24 hr 09/11/18 09/11/18 09/12/18 11:57 15:36 04:32 WBC RBC Hgb Hct MCV MCH MCHC RDW Plt Count MPV Neut % (Auto) Lymph % (Auto) Vance % (Auto) Eos % (Auto) Baso % (Auto) Neut # (Auto) Lymph # (Auto) Vance # (Auto) Eos # (Auto) Baso # (Auto) WBC Differential Differential Comment PT 22.7 H D INR 2.2 Sodium Potassium Chloride Carbon Dioxide Anion Gap BUN Creatinine Estimated GFR POC Glucose Random Glucose Calcium Phosphorus Total Bilirubin AST ALT Alkaline Phosphatase Total Protein Albumin Hepatitis A IgM Ab Nonreactive Hep Bs Antigen Nonreactive Hep B Core IgM Ab Nonreactive Hep C IgG Ab Nonreactive Blood Bank Comment 09/12/18 09/12/18 09/12/18 04:32 04:32 04:32 WBC 5.9 RBC 4.73 Hgb 15.1 Hct 45.0 MCV 95.0 MCH 32.0 MCHC 33.6 RDW 17.1 Plt Count 183 MPV 7.1 Neut % (Auto) 74.3 H Lymph % (Auto) 10.3 Vance % (Auto) 11.0 H Eos % (Auto) 3.6 Baso % (Auto) 0.8 Neut # (Auto) 4.4 Lymph # (Auto) 0.6 L Vance # (Auto) 0.6 Eos # (Auto) 0.2 Baso # (Auto) 0.0 WBC Differential . Differential Comment Auto diff final PT INR Sodium 134 L Potassium 6.7 H* D Chloride 102 D Carbon Dioxide 17.5 L Anion Gap 15 BUN 85 H Creatinine 12.32 H* D Estimated GFR 4 L POC Glucose Random Glucose 50 L Calcium 8.3 L D Phosphorus 8.6 H Total Bilirubin 1.0 AST 29 ALT 29 Alkaline Phosphatase 126 H Total Protein 6.5 D Albumin 2.8 L D Hepatitis A IgM Ab Hep Bs Antigen Hep B Core IgM Ab Hep C IgG Ab Blood Bank Comment 09/12/18 09/12/18 09/12/18 08:39 08:53 09:01 WBC RBC Hgb Hct MCV MCH MCHC RDW Plt Count MPV Neut % (Auto) Lymph % (Auto) Vance % (Auto) Eos % (Auto) Baso % (Auto) Neut # (Auto) Lymph # (Auto) Vance # (Auto) Eos # (Auto) Baso # (Auto) WBC Differential Differential Comment PT INR Sodium Potassium Chloride Carbon Dioxide Anion Gap BUN Creatinine Estimated GFR POC Glucose 49 L* 52 L 57 L Random Glucose Calcium Phosphorus Total Bilirubin AST ALT Alkaline Phosphatase Total Protein Albumin Hepatitis A IgM Ab Hep Bs Antigen Hep B Core IgM Ab Hep C IgG Ab Blood Bank Comment 09/12/18 09/12/18 09/12/18 09:20 09:37 09:51 WBC RBC Hgb Hct MCV MCH MCHC RDW Plt Count MPV Neut % (Auto) Lymph % (Auto) Vance % (Auto) Eos % (Auto) Baso % (Auto) Neut # (Auto) Lymph # (Auto) Vance # (Auto) Eos # (Auto) Baso # (Auto) WBC Differential Differential Comment PT INR Sodium Potassium Chloride Carbon Dioxide Anion Gap BUN Creatinine Estimated GFR POC Glucose 55 L 68 63 L Random Glucose Calcium Phosphorus Total Bilirubin AST ALT Alkaline Phosphatase Total Protein Albumin Hepatitis A IgM Ab Hep Bs Antigen Hep B Core IgM Ab Hep C IgG Ab Blood Bank Comment 09/12/18 09/12/18 09/12/18 10:10 10:39 11:20 WBC RBC Hgb Hct MCV MCH MCHC RDW Plt Count MPV Neut % (Auto) Lymph % (Auto) Vance % (Auto) Eos % (Auto) Baso % (Auto) Neut # (Auto) Lymph # (Auto) Vance # (Auto) Eos # (Auto) Baso # (Auto) WBC Differential Differential Comment PT INR Sodium Potassium Chloride Carbon Dioxide Anion Gap BUN Creatinine Estimated GFR POC Glucose 74 97 Random Glucose 90 Calcium Phosphorus Total Bilirubin AST ALT Alkaline Phosphatase Total Protein Albumin Hepatitis A IgM Ab Hep Bs Antigen Hep B Core IgM Ab Hep C IgG Ab Blood Bank Comment 09/12/18 14:15 WBC RBC Hgb Hct MCV MCH MCHC RDW Plt Count MPV Neut % (Auto) Lymph % (Auto) Vance % (Auto) Eos % (Auto) Baso % (Auto) Neut # (Auto) Lymph # (Auto) Vance # (Auto) Eos # (Auto) Baso # (Auto) WBC Differential Differential Comment PT INR Sodium Potassium Chloride Carbon Dioxide Anion Gap BUN Creatinine Estimated GFR POC Glucose 74 Random Glucose Calcium Phosphorus Total Bilirubin AST ALT Alkaline Phosphatase Total Protein Albumin Hepatitis A IgM Ab Hep Bs Antigen Hep B Core IgM Ab Hep C IgG Ab Blood Bank Comment Microbiology 09/12/18 10:00 Stool Stool Occult Blood (MARTINE) - Final Hemoccult negative Assessment and Plan - Plan This patient is a 63 y/o male with a dx of ESRD on MWF, a fib on coumadin, HTN, Last HD on Wednesday through left upper ext AVF. Patient says he has been having black stools for the past month but did not want to come to the hospital. Yesterday he had an episode of black diarrhea and decided to come into the ED for evaluation. He says he has also been feeling weak. In the ED he was found to be hypotensive. He denies any abd pain, no fevers or chills. No chest pain , no sob. No other complaints. INR found to be supratherapeutic at 4.8. 1. Supratherapeutic INR with likely Upper GI Bleed 2. Hypoglycemia 3. A fib with rvr 09/12/18 He was found to be hypoglycemic with a blood glucose of 49 this am. He was given 2 pushes of D50 with some improvement of his blood glucose. Initially pt was drowsy but improved after the D50 and was then started on D10 by nephrology. Patient was re evaluated a few hrs later and had left for HD. Nephrology following. Accu checks will be done to monitor his blood glucose closely. Patient with current HR in the 110s Continue betablocker, monitor hgb levels. Currently hgb 15, slightly decreased since yesterday. Continue digoxin and Betablocker. INR 2.2 today, s/p vit K and 1 unit ffp yesterday. Follow up am labs, and INR. GI consulted, likely will get EGD tomorrow. Coumadin held. Patient is alert and oriented x 3, responding to my questions and commands appropriately. 3. Right foot heel ulcer Continue bactrim which patient was taking at the [facility]. no active drainage. 4. ESRD on HD 5. Hyperkalemia K level 6.7, however Received HD today. Nephrology following. will need HD tomorrow. No pharmacotherapy for dvt prophylaxis given his gi bleed. SCDs.
[2018-09-12] MEDS: Gelatin 12 MM/7 MM Topical Foam TOPICAL PRN (15:25)
[2018-09-12 16:02] LABS: Digoxin 0.6 ng/mL (0.8-2.0)
--- NOTE | 2018-09-12 19:00 | P.PNGI ---
Subjective Interval history: Patient awake and alert Denies any noted bleeding Currently undergoing hemodialysis <Melly Carter - Last Filed: 09/12/18 19:00> Physical Exam Vital signs: Vital Signs 09/11/18 19:00 09/11/18 19:45 09/11/18 21:45 Temperature 97.3 F L Pulse Rate 104 H 116 H Respiratory Rate 18 Blood Pressure 123/74 Pulse Oximetry 92 L 92 L 09/11/18 23:16 09/12/18 00:00 09/12/18 03:16 Temperature 97.4 F L 97.8 F Pulse Rate 110 H 119 H 112 H Respiratory Rate 18 19 Blood Pressure 101/63 113/74 Pulse Oximetry 93 L 93 L 09/12/18 04:01 09/12/18 08:36 09/12/18 09:00 Temperature 97.2 F L Pulse Rate 125 H 123 H 125 H Respiratory Rate 23 Blood Pressure 120/76 Pulse Oximetry 95 09/12/18 16:24 Temperature 97.8 F Pulse Rate 115 H Respiratory Rate 22 Blood Pressure 110/76 Pulse Oximetry 95 Intake & Output 09/11/18 09/12/18 09/12/18 18:59 06:59 18:59 Intake Total 1510 / 1510 0 / 0 720 / 720 Output Total 1000 / 1000 Balance 1510 / 1510 0 / 0 -280 / -280 Weight 76 kg 76 kg 76.5 kg Intake: IV 1000 / 1000 NS Inj 1,000 ML @ Wide Open IV. 1000 / 1000 SIG BOLUS ONE Rx#:[id number] Oral 240 / 240 0 / 0 720 / 720 Other 50 / 50 Plasma Thawed 5 Day Acda Unit 50 / 50 [id number] Intake (Blood Product) Amt 220 / 220 Plasma Thawed 5 Day Acda Unit 220 / 220 [id number] Output: Urine 0 / 0 Hemodialysis Amount 1000 / 1000 Other: # Voids 0 Date of Last Bowel Movement 09/11/18 09/12/18 # Bowel Movements 0 3 Weight On Admission 76 kg - Constitutional no acute distress, chronically ill appearing - Routine HEENT Exam Head: Present: normocephalic - Routine Respiratory Exam Present: CTA bilaterally - Routine Cardiovascular Exam Present: RRR - Routine Abdominal Exam Present: soft, normoactive bowel sounds. Absent: tenderness, distended - Routine Extremities Exam Absent: edema - Routine Skin Exam Present: dry, warm - Routine Neurological Exam Present: alert <CarterMelly - Last Filed: 09/12/18 19:00> Vital signs: Vital Signs 09/12/18 16:24 09/12/18 19:54 09/12/18 20:00 Temperature 97.8 F 97.9 F Pulse Rate 115 H 120 H 121 H Respiratory Rate 22 19 Blood Pressure 110/76 102/56 L Pulse Oximetry 95 95 09/13/18 00:00 09/13/18 00:17 09/13/18 04:00 Temperature 98.6 F 97.7 F Pulse Rate 117 H 117 H 105 H Respiratory Rate 18 18 Blood Pressure 100/57 L 104/70 Pulse Oximetry 95 98 09/13/18 08:00 09/13/18 10:01 Temperature 97.3 F L 97.4 F L Pulse Rate 120 H 109 H Respiratory Rate 18 18 Blood Pressure 110/57 L 129/50 L Pulse Oximetry 95 94 L Intake & Output 09/12/18 09/13/18 09/13/18 18:59 06:59 18:59 Intake Total 720 / 720 1238.5 / 1238.5 300 / 300 Output Total 1000 / 1000 600 / 600 Balance -280 / -280 638.5 / 638.5 300 / 300 Weight 76.5 kg 76.7 kg Intake: IV 1038.5 / 1038.5 Sodium Chloride 23.4% Inj 154 1038.5 / 1038.5 MEQ In D10W Inj 1,000 ML @ 50 mls/hr IV.CONT .[id number] Rx# :[id number] Oral 720 / 720 200 / 200 Anesthesia Amount 300 / 300 Output: Urine 0 / 0 600 / 600 Hemodialysis Amount 1000 / 1000 Other: Date of Last Bowel Movement 09/12/18 09/12/18 09/13/18 # Bowel Movements 3 2 1 <Abebe Houston - Last Filed: 09/13/18 11:23> Results - Labs CBC & Chem 7: 09/12/18 04:32 09/12/18 11:20 Laboratory Results - last 24 hr 09/12/18 09/12/18 09/12/18 04:32 04:32 04:32 WBC 5.9 RBC 4.73 Hgb 15.1 Hct 45.0 MCV 95.0 MCH 32.0 MCHC 33.6 RDW 17.1 Plt Count 183 MPV 7.1 Neut % (Auto) 74.3 H Lymph % (Auto) 10.3 Barren % (Auto) 11.0 H Eos % (Auto) 3.6 Baso % (Auto) 0.8 Neut # (Auto) 4.4 Lymph # (Auto) 0.6 L Barren # (Auto) 0.6 Eos # (Auto) 0.2 Baso # (Auto) 0.0 WBC Differential . Differential Comment Auto diff final PT 22.7 H D INR 2.2 Sodium 134 L Potassium 6.7 H* D Chloride 102 D Carbon Dioxide 17.5 L Anion Gap 15 BUN 85 H Creatinine 12.32 H* D Estimated GFR 4 L POC Glucose Random Glucose 50 L Calcium 8.3 L D Phosphorus Total Bilirubin 1.0 AST 29 ALT 29 Alkaline Phosphatase 126 H Total Protein 6.5 D Albumin 2.8 L D Digoxin 09/12/18 09/12/18 09/12/18 04:32 08:39 08:53 WBC RBC Hgb Hct MCV MCH MCHC RDW Plt Count MPV Neut % (Auto) Lymph % (Auto) Barren % (Auto) Eos % (Auto) Baso % (Auto) Neut # (Auto) Lymph # (Auto) Barren # (Auto) Eos # (Auto) Baso # (Auto) WBC Differential Differential Comment PT INR Sodium Potassium Chloride Carbon Dioxide Anion Gap BUN Creatinine Estimated GFR POC Glucose 49 L* 52 L Random Glucose Calcium Phosphorus 8.6 H Total Bilirubin AST ALT Alkaline Phosphatase Total Protein Albumin Digoxin 09/12/18 09/12/18 09/12/18 09:01 09:20 09:37 WBC RBC Hgb Hct MCV MCH MCHC RDW Plt Count MPV Neut % (Auto) Lymph % (Auto) Barren % (Auto) Eos % (Auto) Baso % (Auto) Neut # (Auto) Lymph # (Auto) Barren # (Auto) Eos # (Auto) Baso # (Auto) WBC Differential Differential Comment PT INR Sodium Potassium Chloride Carbon Dioxide Anion Gap BUN Creatinine Estimated GFR POC Glucose 57 L 55 L 68 Random Glucose Calcium Phosphorus Total Bilirubin AST ALT Alkaline Phosphatase Total Protein Albumin Digoxin 09/12/18 09/12/18 09/12/18 09:51 10:10 10:39 WBC RBC Hgb Hct MCV MCH MCHC RDW Plt Count MPV Neut % (Auto) Lymph % (Auto) Barren % (Auto) Eos % (Auto) Baso % (Auto) Neut # (Auto) Lymph # (Auto) Barren # (Auto) Eos # (Auto) Baso # (Auto) WBC Differential Differential Comment PT INR Sodium Potassium Chloride Carbon Dioxide Anion Gap BUN Creatinine Estimated GFR POC Glucose 63 L 74 97 Random Glucose Calcium Phosphorus Total Bilirubin AST ALT Alkaline Phosphatase Total Protein Albumin Digoxin 09/12/18 09/12/18 09/12/18 11:20 11:20 14:15 WBC RBC Hgb Hct MCV MCH MCHC RDW Plt Count MPV Neut % (Auto) Lymph % (Auto) Barren % (Auto) Eos % (Auto) Baso % (Auto) Neut # (Auto) Lymph # (Auto) Barren # (Auto) Eos # (Auto) Baso # (Auto) WBC Differential Differential Comment PT INR Sodium Potassium Chloride Carbon Dioxide Anion Gap BUN Creatinine Estimated GFR POC Glucose 74 Random Glucose 90 Calcium Phosphorus Total Bilirubin AST ALT Alkaline Phosphatase Total Protein Albumin Digoxin 0.6 L Cancelled 09/12/18 09/12/18 15:27 16:10 WBC RBC Hgb Hct MCV MCH MCHC RDW Plt Count MPV Neut % (Auto) Lymph % (Auto) Barren % (Auto) Eos % (Auto) Baso % (Auto) Neut # (Auto) Lymph # (Auto) Barren # (Auto) Eos # (Auto) Baso # (Auto) WBC Differential Differential Comment PT INR Sodium Potassium Chloride Carbon Dioxide Anion Gap BUN Creatinine Estimated GFR POC Glucose 82 83 Random Glucose Calcium Phosphorus Total Bilirubin AST ALT Alkaline Phosphatase Total Protein Albumin Digoxin Microbiology 09/12/18 10:00 Stool Stool Occult Blood (MARTINE) - Final Hemoccult negative <Melly Carter - Last Filed: 09/12/18 19:00> - Labs CBC & Chem 7: 09/13/18 05:10 09/13/18 05:10 Laboratory Results - last 24 hr 09/12/18 09/12/18 09/12/18 04:32 11:20 11:20 Hgb Hct ESR PT INR Sodium Potassium Chloride Carbon Dioxide Anion Gap BUN Creatinine Estimated GFR POC Glucose Random Glucose 90 Calcium Phosphorus 8.6 H Magnesium Iron 106 TIBC 189 L % Saturation 56.1 H Ferritin 385 C-Reactive Protein 6.90 H Digoxin 0.6 L Cancelled 09/12/18 09/12/18 09/12/18 14:15 15:27 16:10 Hgb Hct ESR PT INR Sodium Potassium Chloride Carbon Dioxide Anion Gap BUN Creatinine Estimated GFR POC Glucose 74 82 83 Random Glucose Calcium Phosphorus Magnesium Iron TIBC % Saturation Ferritin C-Reactive Protein Digoxin 09/12/18 09/12/18 09/12/18 20:02 21:05 23:35 Hgb Hct ESR 20 PT INR Sodium Potassium Chloride Carbon Dioxide Anion Gap BUN Creatinine Estimated GFR POC Glucose 120 H 115 H Random Glucose Calcium Phosphorus Magnesium Iron TIBC % Saturation Ferritin C-Reactive Protein Digoxin 09/13/18 09/13/18 09/13/18 02:05 03:29 05:10 Hgb Hct ESR PT 16.2 H INR 1.6 Sodium Potassium Chloride Carbon Dioxide Anion Gap BUN Creatinine Estimated GFR POC Glucose 89 84 Random Glucose Calcium Phosphorus Magnesium Iron TIBC % Saturation Ferritin C-Reactive Protein Digoxin 09/13/18 09/13/18 09/13/18 05:10 05:10 06:13 Hgb 14.6 Hct 42.5 ESR PT INR Sodium 142 Potassium 4.4 D Chloride 104 Carbon Dioxide 27.6 D Anion Gap 10 BUN 44 H Creatinine 8.33 H Estimated GFR 7 L POC Glucose 86 Random Glucose 84 Calcium 8.7 Phosphorus Magnesium 2.6 H Iron TIBC % Saturation Ferritin C-Reactive Protein Digoxin Microbiology 09/12/18 10:00 Stool Stool Occult Blood (MARTINE) - Final Hemoccult negative <Abebe Houston - Last Filed: 09/13/18 11:23> Assessment and Plan (1) GI bleed Status: Acute Code(s): K92.2 - Gastrointestinal hemorrhage, unspecified - Plan This patient is a 63-year-old male with past medical history significant for end-stage renal disease on hemodialysis, atrial fibrillation and hypertension. Past surgical history significant for metal removed from back, and left upper extremity AV fistula. Patient states hemodialysis treatments are every Wednesday and Wednesday. Patient was sent to [facility] from a senior care facility with reported black stools onset 1 month ago. Patient states he has been experiencing generalized weakness and has noted no abdominal pain fevers or chills. Patient denies any chest pain or shortness of breath. Denies nausea or vomiting. Patient currently on Coumadin for atrial fibrillation. Upon admission, INR found to be supra therapeutic at 4.8. Patient states last EGD done in December 2017 revealed gastric ulcer. Our service has been consulted to evaluate patient for GI bleeding. GI bleed INR 4.8 History of gastric ulcer Patient endorses black stools times 1 month. Patient with known ulcer disease diagnosed in December 2017. Denies any hematemesis. Currently on Coumadin for atrial fibrillation with INR 4.8. -WBC 6.1 hemoglobin 16.3 hematocrit 47.3 platelet count 172 -BUN 68 creatinine 9.1 GFR 6 calcium 5.9 total bilirubin 0.4 AST 21 ALT 23 alk phos 89 albumin 1.9 09/12/2018 Patient denies any noted bleeding Denies hematemesis or abdominal pain States he is hungry Currently receiving hemodialysis WBC 5.9 hemoglobin 15.1 hematocrit 45.0 INR 2.2 Plan Renal diet N.p.o. after midnight Obtain consent for EGD Monitor hemoglobin hematocrit Monitor for bleeding PPI Avoid anticoagulants Supportive care Avoid NSAIDs and anticoagulants Further recommendations to follow This patient has been seen by myself and and this note is written on his behalf - Attending Attestation Dr. Houston <Melly Carter - Last Filed: 09/12/18 19:00> (1) GI bleed Status: Acute Code(s): K92.2 - Gastrointestinal hemorrhage, unspecified - Attending Attestation The patient has been seen and examined. I agree with above. <Abebe Houston - Last Filed: 09/13/18 11:23>
--- NOTE | 2018-09-12 21:17 | MB ---
cc: Moni Parry MD DATE: 09/12/2018 REASON FOR CONSULTATION: Hematology consult is requested by Dr. Chisholm for evaluation of polycythemia. HISTORY OF PRESENT ILLNESS: Zak is a 63-year-old male. He was referred to me 2 months ago on 07/14/[address] Winston Roper, his sales assistant institutional sales. I had ordered the workup for the polycythemia as I suspected that he has polycythemia vera. Multiple blood tests were ordered. Unfortunately, due to transportation issues, the patient never came back for followup to go over the blood test results. The patient is now admitted to the hospital with GI bleeding. GI has been consulted. Nephrology has been consulted as well. The patient has end-stage renal disease and he is on hemodialysis Wednesday, Wednesday, Wednesday. He also has a history of atrial fibrillation and has been on Coumadin, which is now on hold as his INR is supratherapeutic. The patient has been having blood in the stool for the last 1 month or so, but he decided not to come to the hospital for the workup. When he noted severe black diarrhea 2 days ago he got scared and decided to come to the emergency room. In the ER, the patient was hypotensive. His INR was 4.8. Coumadin was reversed and his INR came down to 2.2 today. GI has been consulted and they are planning to do the scope. The patient has been complaining of weakness and fatigue. He denies any nausea or vomiting. The rest of the review of systems is negative. PAST MEDICAL HISTORY: Hypertension, coronary artery disease, congestive heart failure, atrial fibrillation, CVA, skin cancer removed from the arm, end-stage renal disease. PAST SURGICAL HISTORY: Tonsillectomy, skin cancer removal, AV shunt. ALLERGIES: COLD MEDICATIONS. HOME MEDICATIONS: 1. Citalopram. 2. Digoxin. 3. Melatonin. 4. Metoprolol. 5. Sensipar. 6. Warfarin. 7. Tylenol. 8. Midodrine. FAMILY HISTORY: The patient does not have any siblings and no children. SOCIAL HISTORY: The patient is single. He does not smoke cigarettes and does not drink alcohol. 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 PHYSICAL EXAMINATION: GENERAL: He is a well-developed, elderly white male in no apparent distress. VITAL SIGNS: Temperature 97.8, heart rate 115, blood pressure 110/76, O2 saturation 95% on room air. HEAD, EYES, EARS, NOSE, AND THROAT: Pupils equal, round, reactive to light and accommodation, extraocular movements intact. Anicteric. No oral lesions noted. No thrush noted. NECK: Supple. No JVD. No masses noted. LUNGS: Clear. No wheezing, rhonchi, or rales. HEART: Irregularly irregular with tachycardia. ABDOMEN: Soft and nontender. No hepatosplenomegaly. No abnormal bowel sounds. No guarding or rigidity noted. EXTREMITIES: No pedal edema. No cyanosis, no clubbing. AV shunt noted. NEUROLOGIC: Awake, alert, oriented x 3. Sensory and motor seem to be intact. SKIN: No bruises or petechiae noted. BREASTS: No masses noted. LYMPH NODES: No cervical, supraclavicular, or axillary lymphadenopathy noted. BACK: There is no spinal tenderness noted. ASSESSMENT: 1. Polycythemia, suspect myeloproliferative disorder until proven otherwise. 2. Gastrointestinal bleeding, most likely due to supratherapeutic INR of 4.8. 3. Atrial fibrillation, on Coumadin, which is now put on hold. 4. End-stage renal disease, on hemodialysis. PLAN: I have reviewed his available records, and I have discussed with the patient regarding the blood test results. When he came in yesterday, the CBC showed white count of 6.1, hemoglobin 16.3, hematocrit 47.3, platelet count 172. CBC today shows white count of 5.9, hemoglobin 15.1, hematocrit 45, platelet count 183. When I saw him in June, his hemoglobin was 19.1 and hematocrit was 59.6. Therefore, he has a significant drop in the hematocrit from 59 to 45, most likely due to GI bleeding. The patient was given lab slip to have the blood tests done. Unfortunately, these were not done and he never came back for followup in my office. I saw him as a new patient in the [place] office on 07/14/2018. When I asked him why he never came back for followup, he gave me the excuse that it was because of transportation problems. He is staying at an adult living facility. He has been using transportation for dialysis 3 times a week. Therefore, it is unknown why he did not make the followup appointment. At any rate, I will order the workup for the polycythemia and we will make further recommendations once we get the results of those. Thank you for asking my opinion. MD BRIGETTE Herrmann/carlo , 07:44 PM , 07:56 PM MANFRED
[2018-09-12 21:27] LABS: % Iron Saturation 56.1 % (20-50); C-Reactive Protein 6.9 mg/dL (0.00-0.30)
[2018-09-13] MEDS: Pantoprazole Inj 40 MG Vial IV.PUSH SCH ×2 (03:30→17:05)
[2018-09-13] MEDS: Sodium Chloride 23.4% Inj 154 MEQ in Dextrose 10% in Water Inj 1,000 ML IV.CONT SCH ×4 (05:33→21:28)
[2018-09-13] MEDS ORDERED: Chlorhexidine Gluconate 2% 1 Pack (2 Cloths) TOPICAL ONE (05:34)
[2018-09-13 05:40] LABS: Hematocrit 42.5 % (39.0-51.0); Hemoglobin 14.6 gm/dL (13.0-17.0)
[2018-09-13 05:48] LABS: INR 1.6 Ratio; Prothrombin Time 16.2 sec (9.8-11.6)
[2018-09-13] MEDS ORDERED: Sodium Chlor 0.9% Inj 500 ML IV.SIG SCH (06:00)
[2018-09-13 06:15] LABS: Calcium 8.7 mg/dL (8.5-10.1); Carbon Dioxide 27.6 meq/L (21.0-32.0); Magnesium 2.6 mg/dL (1.5-2.5); Potassium 4.4 meq/L (3.5-5.1)
[2018-09-13] MEDS: Metoprolol Tartrate 25 MG Tablet PO SCH ×2 (07:45→21:29)
[2018-09-13] MEDS: Digoxin 125 MCG Tablet PO SCH (07:45)
[2018-09-13] MEDS: Citalopram 20 MG Tablet PO SCH (07:45)
[2018-09-13] MEDS: Sulfamethoxazole/Trimethoprim 400/80 MG Tablet PO SCH (07:45)
--- NOTE | 2018-09-13 09:49 | P.PCN ---
Date of procedure: 09/13/18 Pre-op diagnosis: Melena Post-op diagnosis: other (Gastritis, Duodenitis, Ampullary mass with ulcer) Procedure: THANK YOU FOR THE REFERRAL Indication; Anemia and melena Procedure Performed; upper endoscopy with biopsy After informing the patient about procedure and possible complications consent was signed. history and physical were updated. Patient was taken to the procedure room and placed in position. Time out was completed. Adequate sedation was performed by anesthesia provider. Upper Endoscopy, the scope was placed in the mouth advanced under video guide to the second portion of the duodenum, then the scope was withdrawal to the stomach and retro-flexion was performed, the scope was withdrawal to the esophagus then out of the mouth without any immediate complication Findings; Esophagus: Z line seen at 40 cm, it had a regular smooth appearance. The esophageal mucosa was normal. Stomach: Direct and retroflex views were obtained. There were a few 5 mm gastric polyps seen in the body of the stomach, one was biopsied. The antrum had moderate erythema with edema and friability. Biopsy was obtained. No ulcers or erosions seen. Retroflex showed a normal cardia. Duodenum: The bulb revealed erythema and inflamation, the area was biopsied. No ulcer or erosions. In the second portion the ampulla was seen to be enlarged , edematosy and erythematous with what appeared to be a central ulcer where the os should be. The ampulla was biopsied. Recommendations; 1- Supportive care 2- ok to transfer to recovery area then discharge per protocol 3- return to medical floor 4-[id number] diet 5- EGD repeated as needed. 6- Await pathology report for further recommendations. 7- proton pump inhibitors in standard oral dose. 8- Avoid NSAIDS Surgeon: Abebe Houston Pathology: other (Amullary mass, duodenal bulb, gastric antrum and gastric polyp in body of stomach) Condition: stable Disposition: floor
--- NOTE | 2018-09-13 10:51 | P.PNNP ---
Subjective Interval history: Patient was seen, no distress. Patient is s/p EGD. Hematology consulted and ordered workup for PV. Patient gets dialysis MWF. K level improved with dialysis. <Lidia Gleason - Last Filed: 09/13/18 10:54> Physical Exam Vital signs: Vital Signs 09/12/18 16:24 09/12/18 19:54 09/12/18 20:00 Temperature 97.8 F 97.9 F Pulse Rate 115 H 120 H 121 H Respiratory Rate 22 19 Blood Pressure 110/76 102/56 L Pulse Oximetry 95 95 09/13/18 00:00 09/13/18 00:17 09/13/18 04:00 Temperature 98.6 F 97.7 F Pulse Rate 117 H 117 H 105 H Respiratory Rate 18 18 Blood Pressure 100/57 L 104/70 Pulse Oximetry 95 98 09/13/18 08:00 09/13/18 10:01 Temperature 97.3 F L 97.4 F L Pulse Rate 120 H 109 H Respiratory Rate 18 18 Blood Pressure 110/57 L 129/50 L Pulse Oximetry 95 94 L Intake & Output 09/12/18 09/13/18 09/13/18 18:59 06:59 18:59 Intake Total 720 / 720 1238.5 / 1238.5 300 / 300 Output Total 1000 / 1000 600 / 600 Balance -280 / -280 638.5 / 638.5 300 / 300 Weight 76.5 kg 76.7 kg Intake: IV 1038.5 / 1038.5 Sodium Chloride 23.4% Inj 154 1038.5 / 1038.5 MEQ In D10W Inj 1,000 ML @ 50 mls/hr IV.CONT .[id number] [facility] Rx# :[id number] Oral 720 / 720 200 / 200 Anesthesia Amount 300 / 300 Output: Urine 0 / 0 600 / 600 Hemodialysis Amount 1000 / 1000 Other: Date of Last Bowel Movement 09/12/18 09/12/18 # Bowel Movements 3 2 1 - Constitutional no acute distress, chronically ill appearing - Routine HEENT Exam Head: Present: normocephalic Eye: Present: EOMI - Routine Neck Exam Present: trachea midline. Absent: tracheal deviation - Routine Respiratory Exam Absent: accessory muscle use, respiratory distress - Routine Cardiovascular Exam Present: irregularly irregular - Routine Abdominal Exam Present: soft, normoactive bowel sounds - Routine Extremities Exam Present: AV fistula - Routine Skin Exam Present: lesions Comments: Right foot lesions - Routine Neurological Exam Present: alert - Routine Psychiatric Exam Present: normal affect <Lidia Gleason - Last Filed: 09/13/18 10:54> Vital signs: Vital Signs 09/13/18 10:01 09/13/18 12:37 09/13/18 16:00 Temperature 97.4 F L 98.6 F 97.4 F L Pulse Rate 109 H 109 H 108 H Respiratory Rate 18 18 20 Blood Pressure 129/50 L 104/52 L 95/63 L Pulse Oximetry 94 L 95 98 09/13/18 19:49 09/13/18 20:00 09/13/18 21:20 Temperature 97.6 F Pulse Rate 102 H 121 H Respiratory Rate 18 Blood Pressure 102/63 Pulse Oximetry 96 96 09/13/18 23:51 09/14/18 00:03 09/14/18 01:30 Temperature 98.1 F 98.4 F Pulse Rate 111 H 108 H 132 H Respiratory Rate 18 19 Blood Pressure 120/70 110/77 Pulse Oximetry 92 L 95 09/14/18 02:30 09/14/18 03:30 09/14/18 04:03 Temperature 97.5 F L 97.7 F Pulse Rate 114 H 97 H 118 H Respiratory Rate 18 18 Blood Pressure 94/60 L 109/65 Pulse Oximetry 93 L 92 L 09/14/18 04:30 09/14/18 05:30 Temperature 97.6 F 97.9 F Pulse Rate 113 H 106 H Respiratory Rate 18 18 Blood Pressure 102/58 L 112/62 Pulse Oximetry 93 L 94 L Intake & Output 09/13/18 09/14/18 09/14/18 18:59 06:59 18:59 Intake Total 300 / 300 1240 / 1240 Balance 300 / 300 1240 / 1240 Weight 76.7 kg Intake: IV 1000 / 1000 Sodium Chloride 23.4% Inj 154 1000 / 1000 MEQ In D10W Inj 1,000 ML @ 50 mls/hr IV.CONT .[id number] [facility] Rx# :[id number] Oral 240 / 240 Anesthesia Amount 300 / 300 Other: # Voids 0 Date of Last Bowel Movement 09/13/18 09/13/18 # Bowel Movements 2 2 <Varun Chisholm - Last Filed: 09/14/18 09:02> Assessment and Plan - Assessment (1) End-stage renal disease on hemodialysis Code(s): N18.6 - End stage renal disease; Z99.2 - Dependence on renal dialysis Status: Acute Plan: Patient gets dialysis MWF. Patient to be dialyzed tomorrow. Patient's K improved with dialysis. Monitor fluid and electrolytes. Avoid nephrotoxic agents. Avoid BP measurements or blood draws in L arm, AVF. (2) GI bleed Code(s): K92.2 - Gastrointestinal hemorrhage, unspecified Status: Acute Plan: s/p EGD, results reviewed. GI on the case. Hematology consulted and ordered workup for PV. (3) Afib Code(s): I48.91 - Unspecified atrial fibrillation Status: Acute Plan: On metoprolol. Coumadin on hold. <Lidia Gleason - Last Filed: 09/13/18 10:54> - Assessment (1) End-stage renal disease on hemodialysis Code(s): N18.6 - End stage renal disease; Z99.2 - Dependence on renal dialysis Status: Acute (2) GI bleed Code(s): K92.2 - Gastrointestinal hemorrhage, unspecified Status: Acute (3) Afib Code(s): I48.91 - Unspecified atrial fibrillation Status: Acute - Attending Attestation patient was seen and examined. Agree with above assessment and plan. GI and Hematology on the case. Continue dialysis support. Monitor fluid and electrolytes. Add Renvela for hyperphosphatemia. <Varun Chisholm - Last Filed: 09/14/18 09:02>
[2018-09-13] MEDS ORDERED: Warfarin Consult Pharmacy OTHER PRN (14:18)
--- NOTE | 2018-09-13 14:31 | P.PNIM ---
Subjective Interval history: Patient is seen after GI procedure. Says he tolerated the procedure well and is feeling fine. No chest pain or shortness of breath. No nausea or vomiting. No fever or chills. Nursing reports no adverse events. He is noted to be a somewhat poor historian Physical Exam Vital signs: Last Vital Signs Temp 98.6 F 09/13/18 12:37 Pulse 109 H 09/13/18 12:37 Resp 18 09/13/18 12:37 BP 104/52 L 09/13/18 12:37 Pulse Ox 95 09/13/18 12:37 Intake & Output 09/11/18 09/12/18 09/13/18 09/14/18 06:59 06:59 06:59 06:59 Intake Total 1510 / 1510 1958.5 / 1958.5 300 / 300 Output Total 1600 / 1600 Balance 1510 / 1510 358.5 / 358.5 300 / 300 Weight 76 kg 76.7 kg Narrative: GENERAL: Well-nourished, well-developed adult male in no obvious distress. SKIN: Warm and dry. HEAD: Atraumatic. Normocephalic. CARDIOVASCULAR: Regular rate and rhythm. RESPIRATORY: No accessory muscle use. Clear to auscultation. Breath sounds equal bilaterally. GASTROINTESTINAL: Abdomen soft, non-tender, non-distended. Positive bowel sounds. MUSCULOSKELETAL: Chronic venous deficiency bilateral lower legs. Right heel unstageable pressure ulcer. NEUROLOGICAL: Awake and alert. No obvious cranial nerve deficits. Motor grossly within normal limits. Normal speech. Results Labs CBC & Chem 7: 09/13/18 05:10 09/13/18 05:10 Labs: Microbiology 09/12/18 10:00 Stool Stool Occult Blood (MARTINE) - Final Hemoccult negative Assessment and Plan (1) End-stage renal disease on hemodialysis: Code(s): N18.6 - End stage renal disease; Z99.2 - Dependence on renal dialysis Status: Acute (2) GI bleed: Code(s): K92.2 - Gastrointestinal hemorrhage, unspecified Status: Acute (3) Afib: Code(s): I48.91 - Unspecified atrial fibrillation Status: Acute Plan This patient is a 63 y/o male with a dx of ESRD on MWF, a fib on coumadin, HTN, Last HD on Wednesday through left upper ext AVF. Patient says he has been having black stools for the past month but did not want to come to the hospital. Yesterday he had an episode of black diarrhea and decided to come into the ED for evaluation. He says he has also been feeling weak. In the ED he was found to be hypotensive. INR found to be supratherapeutic at 4.8. Supratherapeutic INR with likely Upper GI Bleed -INR improved to 2.2 after vit K and 1 unit ffp. -Now 1.6 on 09/13 -restart Coumadin with pharmacy assistance in management -Follow up am labs, and INR. -GI consulted, EGD done 09/13 Hypoglycemia -Required glucagon and D10 on 09/12 -Currently resolved; patient was worked up for similar before but is unable to give results other than "they think they gave me the wrong pills". -Monitor BG; may need endocrinology workup as outpatient A. fib with RVR -Continue digoxin and BB. Right foot heel ulcer -Stopped Bactrim which was prescribed at [facility] due to potential interaction with Coumadin. Will do clindamycin instead. -Wound care consulted for recommendations. ESRD on HD -Hyperkalemia; improved with HD -Nephrology following. Polycythemia -Heme consult requested by nephrology No pharmacotherapy for dvt prophylaxis given his gi bleed. SCDs. Discharge planning: Currently lives at [facility] (?); May need rehab Progress Note: Quality VTE Deep Vein Thrombosis/Pulmonary Embolism Present on Admission: No _ (1) GI bleed Qualifiers: GI bleed type/associated pathology: Gastritis type: (2) Afib Qualifiers: Atrial fibrillation type:
--- NOTE | 2018-09-13 16:46 | ECG ---
Date Performed: 09/13/2018 Time Performed: 04:27:26 PTAGE: 63 years EKG: Atrial fibrillation with rapid ventricular response Consider anterolateral ischemia. Abnorm al ECG PREVIOUS TRACING : 01/30/2018 20.08 DOCTOR: Diaz Fowler Interpretating Date/Time 09/13/2018 16:44:10
[2018-09-14] MEDS: Pantoprazole Inj 40 MG Vial IV.PUSH SCH ×2 (05:21→17:12)
[2018-09-14] MEDS: Sodium Chloride 23.4% Inj 154 MEQ in Dextrose 10% in Water Inj 1,000 ML IV.CONT SCH ×2 (05:21)
[2018-09-14 05:51] LABS: INR 1.5 Ratio; Prothrombin Time 15.4 sec (9.8-11.6)
[2018-09-14] MEDS: Digoxin 125 MCG Tablet PO SCH (08:03)
[2018-09-14] MEDS: Metoprolol Tartrate 25 MG Tablet PO SCH ×2 (08:03→21:16)
[2018-09-14] MEDS: Citalopram 20 MG Tablet PO SCH (08:03)
--- NOTE | 2018-09-14 10:36 | P.PNNP ---
Subjective Interval history: Patient was seen, no distress, no complaints. Patient gets dialysis MWF, to be dialyzed today. <Lidia Gleason - Last Filed: 09/14/18 10:33> Physical Exam Vital signs: Vital Signs 09/13/18 12:37 09/13/18 16:00 09/13/18 19:49 Temperature 98.6 F 97.4 F L 97.6 F Pulse Rate 109 H 108 H 102 H Respiratory Rate 18 20 18 Blood Pressure 104/52 L 95/63 L 102/63 Pulse Oximetry 95 98 96 09/13/18 20:00 09/13/18 21:20 09/13/18 23:51 Temperature 98.1 F Pulse Rate 121 H 111 H Respiratory Rate 18 Blood Pressure 120/70 Pulse Oximetry 96 92 L 09/14/18 00:03 09/14/18 01:30 09/14/18 02:30 Temperature 98.4 F 97.5 F L Pulse Rate 108 H 132 H 114 H Respiratory Rate 19 18 Blood Pressure 110/77 94/60 L Pulse Oximetry 95 93 L 09/14/18 03:30 09/14/18 04:03 09/14/18 04:30 Temperature 97.7 F 97.6 F Pulse Rate 97 H 118 H 113 H Respiratory Rate 18 18 Blood Pressure 109/65 102/58 L Pulse Oximetry 92 L 93 L 09/14/18 05:30 09/14/18 08:30 09/14/18 09:30 Temperature 97.9 F 97.6 F 97.6 F Pulse Rate 106 H 109 H 109 H Respiratory Rate 18 16 16 Blood Pressure 112/62 101/69 101/69 Pulse Oximetry 94 L 93 L 93 L Intake & Output 09/13/18 09/14/18 09/14/18 18:59 06:59 18:59 Intake Total 300 / 300 1240 / 1240 Balance 300 / 300 1240 / 1240 Weight 76.7 kg Intake: IV 1000 / 1000 Sodium Chloride 23.4% Inj 154 1000 / 1000 MEQ In D10W Inj 1,000 ML @ 50 mls/hr IV.CONT .[id number] [facility] Rx# :[id number] Oral 240 / 240 Anesthesia Amount 300 / 300 Other: # Voids 0 Date of Last Bowel Movement 09/13/18 09/13/18 09/14/18 # Bowel Movements 2 2 Narrative: GENERAL: No distress. SKIN: Warm and dry. HEAD: Atraumatic. Normocephalic. CARDIOVASCULAR: Regular rate and rhythm. RESPIRATORY: No accessory muscle use. Breath sounds equal bilaterally. GASTROINTESTINAL: Abdomen soft, non-tender, non-distended. MUSCULOSKELETAL: Chronic venous deficiency bilateral lower legs. Right foot lesions. NEUROLOGICAL: Awake and alert. <Lidia Gleason - Last Filed: 09/14/18 10:33> Vital signs: Vital Signs 09/14/18 23:58 09/15/18 00:30 09/15/18 03:53 Temperature 98.1 F Pulse Rate 101 H 101 H 112 H Respiratory Rate 18 Blood Pressure 119/73 Pulse Oximetry 93 L 09/15/18 04:30 09/15/18 08:00 09/15/18 09:00 Temperature 98.3 F 98.3 F Pulse Rate 98 H 95 H 95 H Respiratory Rate 18 16 Blood Pressure 99/64 L 106/68 Pulse Oximetry 92 L 93 L 09/15/18 12:00 09/15/18 16:00 09/15/18 19:20 Temperature 97.8 F 97.6 F 98.2 F Pulse Rate 94 H 86 99 H Respiratory Rate 18 18 24 Blood Pressure 101/71 113/74 104/65 Pulse Oximetry 93 L 91 L 95 09/15/18 20:00 Temperature Pulse Rate 97 H Respiratory Rate Blood Pressure Pulse Oximetry Intake & Output 09/15/18 09/15/18 09/16/18 06:59 18:59 06:59 Intake Total 1398.5 / 1398.5 Balance 1398.5 / 1398.5 Weight 76.7 kg Intake: IV 1038.5 / 1038.5 Sodium Chloride 23.4% Inj 154 1038.5 / 1038.5 MEQ In D10W Inj 1,000 ML @ 50 mls/hr IV.CONT .[id number] [facility] Rx# :[id number] Oral 360 / 360 Other: # Voids 0 # Urine Diapers 2 Date of Last Bowel Movement 09/14/18 09/15/18 # Bowel Movements 0 1 <Varun Chisholm - Last Filed: 09/15/18 22:05> Assessment and Plan - Assessment (1) End-stage renal disease on hemodialysis Code(s): N18.6 - End stage renal disease; Z99.2 - Dependence on renal dialysis Status: Acute Plan: Patient gets dialysis MWF. Patient to be dialyzed today. Monitor fluid and electrolytes. Labs today are pending. Avoid nephrotoxic agents. Avoid BP measurements or blood draws in L arm, AVF. (2) GI bleed Code(s): K92.2 - Gastrointestinal hemorrhage, unspecified Status: Acute Plan: s/p EGD, results reviewed. GI on the case. Hematology consulted and ordered workup for PV. Results pending. (3) Afib Code(s): I48.91 - Unspecified atrial fibrillation Status: Acute Plan: On metoprolol. Coumadin on hold. <Lidia Gleason - Last Filed: 09/14/18 10:33> - Assessment (1) End-stage renal disease on hemodialysis Code(s): N18.6 - End stage renal disease; Z99.2 - Dependence on renal dialysis Status: Acute (2) GI bleed Code(s): K92.2 - Gastrointestinal hemorrhage, unspecified Status: Acute (3) Afib Code(s): I48.91 - Unspecified atrial fibrillation Status: Acute - Attending Attestation patient was seen and examined. Agree with above assessment and plan. <Varun Chisholm - Last Filed: 09/15/18 22:05>
--- NOTE | 2018-09-14 11:52 | P.PNWCN ---
Wound Care Nurse Consult Additional information: Attempted to see patient today at 1030, patient is at dialysis. Will see patient attempt to see patient tomorrow.
--- NOTE | 2018-09-14 14:58 | P.PNIM ---
Subjective Interval history: Patient is seen lying in bed prior to going to dialysis. He seems a little more confused this morning and keeps asking me the results of the blood work he had done over the summer. Difficult to redirect to ROS; gives no other specific complaints. Nursing reports no adverse events. Physical Exam Vital signs: Last Vital Signs Temp 97.6 F 09/14/18 09:30 Pulse 109 H 09/14/18 09:30 Resp 16 09/14/18 09:30 BP 101/69 09/14/18 09:30 Pulse Ox 93 L 09/14/18 09:30 Intake & Output 09/12/18 09/13/18 09/14/18 09/15/18 06:59 06:59 06:59 06:59 Intake Total 1510 / 1510 1958.5 / 1958.5 1540 / 1540 Output Total 1600 / 1600 3000 / 3000 Balance 1510 / 1510 358.5 / 358.5 1540 / 1540 -3000 / -3000 Weight 76 kg 76.7 kg 76.7 kg Narrative: GENERAL: Well-nourished, well-developed adult male in no obvious distress. SKIN: Warm and dry. HEAD: Atraumatic. Normocephalic. CARDIOVASCULAR: Regular rate and rhythm. RESPIRATORY: No accessory muscle use. Clear to auscultation. Breath sounds equal bilaterally. GASTROINTESTINAL: Abdomen soft, non-tender, non-distended. Positive bowel sounds. MUSCULOSKELETAL: Chronic venous deficiency bilateral lower legs. Right heel unstageable pressure ulcer. NEUROLOGICAL: Awake and alert. No obvious cranial nerve deficits. Motor grossly within normal limits. Normal speech. Results Labs CBC & Chem 7: 09/13/18 05:10 09/13/18 05:10 Assessment and Plan (1) End-stage renal disease on hemodialysis: Code(s): N18.6 - End stage renal disease; Z99.2 - Dependence on renal dialysis Status: Acute (2) GI bleed: Code(s): K92.2 - Gastrointestinal hemorrhage, unspecified Status: Acute (3) Afib: Code(s): I48.91 - Unspecified atrial fibrillation Status: Acute Plan This patient is a 63 y/o male with a dx of ESRD on MWF, a fib on coumadin, HTN, Last HD on Wednesday through left upper ext AVF. Patient says he has been having black stools for the past month but did not want to come to the hospital. Yesterday he had an episode of black diarrhea and decided to come into the ED for evaluation. He says he has also been feeling weak. In the ED he was found to be hypotensive. INR found to be supratherapeutic at 4.8. Supratherapeutic INR with likely Upper GI Bleed -INR improved to 2.2 after vit K and 1 unit ffp. -Now 1.6 on 09/13 -restart Coumadin with pharmacy assistance in management. -Follow up am labs, and INR. -GI consulted, EGD done 09/13 -ulcer; biopsies taken. GI recommending no anticoagulation A. fib; risk of clot currently outweighs risk of bleed so we will continue anticoagulation at this time. Hypoglycemia -Required glucagon and D10 on 09/12 -Currently resolved; patient was worked up for similar before but is unable to give results other than "they think they gave me the wrong pills". -Monitor BG; may need endocrinology workup as outpatient A. fib with RVR -Continue digoxin and BB. Right foot heel ulcer -Stopped Bactrim which was prescribed at [facility] due to potential interaction with Coumadin. Will do clindamycin instead. -Wound care consulted for recommendations. ESRD on HD -Hyperkalemia; improved with HD -Nephrology following. Suspected polycythemia Vera -Heme consult requested by nephrology DVT prophylaxis: Coumadin Discharge planning: Currently lives at [facility]; May need rehab Progress Note: Quality VTE Deep Vein Thrombosis/Pulmonary Embolism Present on Admission: No _ (1) GI bleed Qualifiers: GI bleed type/associated pathology: Gastritis type: (2) Afib Qualifiers: Atrial fibrillation type:
--- NOTE | 2018-09-14 15:23 | P.PNGI ---
Subjective Interval history: Patient undergoing hemodialysis Denies abdominal pain nausea vomiting Reports loose stools this a.m. multiple times Post EGD <CarterMelly - Last Filed: 09/14/18 15:20> Physical Exam Vital signs: Vital Signs 09/13/18 16:00 09/13/18 19:49 09/13/18 20:00 Temperature 97.4 F L 97.6 F Pulse Rate 108 H 102 H 121 H Respiratory Rate 20 18 Blood Pressure 95/63 L 102/63 Pulse Oximetry 98 96 09/13/18 21:20 09/13/18 23:51 09/14/18 00:03 Temperature 98.1 F Pulse Rate 111 H 108 H Respiratory Rate 18 Blood Pressure 120/70 Pulse Oximetry 96 92 L 09/14/18 01:30 09/14/18 02:30 09/14/18 03:30 Temperature 98.4 F 97.5 F L 97.7 F Pulse Rate 132 H 114 H 97 H Respiratory Rate 19 18 18 Blood Pressure 110/77 94/60 L 109/65 Pulse Oximetry 95 93 L 92 L 09/14/18 04:03 09/14/18 04:30 09/14/18 05:30 Temperature 97.6 F 97.9 F Pulse Rate 118 H 113 H 106 H Respiratory Rate 18 18 Blood Pressure 102/58 L 112/62 Pulse Oximetry 93 L 94 L 09/14/18 08:30 09/14/18 09:30 Temperature 97.6 F 97.6 F Pulse Rate 109 H 109 H Respiratory Rate 16 16 Blood Pressure 101/69 101/69 Pulse Oximetry 93 L 93 L Intake & Output 09/13/18 09/14/18 09/14/18 18:59 06:59 18:59 Intake Total 300 / 300 1240 / 1240 Output Total 3000 / 3000 Balance 300 / 300 1240 / 1240 -3000 / -3000 Weight 76.7 kg Intake: IV 1000 / 1000 Sodium Chloride 23.4% Inj 154 1000 / 1000 MEQ In D10W Inj 1,000 ML @ 50 mls/hr IV.CONT .[id number] [facility] Rx# :[id number] Oral 240 / 240 Anesthesia Amount 300 / 300 Output: Hemodialysis Amount 3000 / 3000 Other: # Voids 0 Date of Last Bowel Movement 09/13/18 09/13/18 09/14/18 # Bowel Movements 2 2 - Constitutional no acute distress, chronically ill appearing - Routine HEENT Exam Head: Present: normocephalic - Routine Respiratory Exam Present: CTA bilaterally - Routine Cardiovascular Exam Present: RRR - Routine Abdominal Exam Present: soft, normoactive bowel sounds. Absent: tenderness - Routine Skin Exam Present: dry, warm - Routine Neurological Exam Present: alert <Carter,Melly - Last Filed: 09/14/18 15:20> Vital signs: Vital Signs 09/14/18 17:30 09/14/18 19:48 09/14/18 20:30 Temperature 97.2 F L 98.6 F Pulse Rate 99 H 112 H 122 H Respiratory Rate 18 18 Blood Pressure 107/77 132/68 Pulse Oximetry 93 L 94 L 09/14/18 21:15 09/14/18 23:58 09/15/18 00:30 Temperature 98.1 F Pulse Rate 101 H 101 H Respiratory Rate 18 Blood Pressure 119/73 Pulse Oximetry 94 L 93 L 09/15/18 03:53 09/15/18 04:30 09/15/18 08:00 Temperature 98.3 F 98.3 F Pulse Rate 112 H 98 H 95 H Respiratory Rate 18 16 Blood Pressure 99/64 L 106/68 Pulse Oximetry 92 L 93 L 09/15/18 09:00 Temperature Pulse Rate 95 H Respiratory Rate Blood Pressure Pulse Oximetry Intake & Output 09/14/18 09/15/18 09/15/18 18:59 06:59 18:59 Intake Total 400 / 400 1398.5 / 1398.5 Output Total 3000 / 3000 Balance -2600 / -2600 1398.5 / 1398.5 Weight 76.7 kg Intake: IV 1038.5 / 1038.5 Sodium Chloride 23.4% Inj 154 1038.5 / 1038.5 MEQ In D10W Inj 1,000 ML @ 50 mls/hr IV.CONT .[id number] [facility] Rx# :[id number] Oral 400 / 400 360 / 360 Output: Hemodialysis Amount 3000 / 3000 Other: # Voids 0 Date of Last Bowel Movement 09/14/18 09/14/18 09/15/18 # Bowel Movements 2 0 <Abebe Houston - Last Filed: 09/15/18 13:24> Results - Labs CBC & Chem 7: 09/13/18 05:10 09/13/18 05:10 Laboratory Results - last 24 hr 09/13/18 09/13/18 09/14/18 17:04 21:24 01:15 PT INR POC Glucose 59 L 131 H Stl C.difficile DNA Amp Negative St C. diff Tox Epid 027 Negative 09/14/18 09/14/18 09/14/18 05:13 08:02 13:04 PT 15.4 H INR 1.5 POC Glucose 91 75 Stl C.difficile DNA Amp St C. diff Tox Epid 027 <Melly Carter - Last Filed: 09/14/18 15:20> - Labs CBC & Chem 7: 09/15/18 04:18 09/15/18 04:18 Laboratory Results - last 24 hr 09/14/18 09/14/18 09/14/18 13:04 15:45 17:11 WBC RBC Hgb Hct MCV MCH MCHC RDW Plt Count MPV Neut % (Auto) Lymph % (Auto) [place] % (Auto) Eos % (Auto) Baso % (Auto) Neut # (Auto) Lymph # (Auto) [place] # (Auto) Eos # (Auto) Baso # (Auto) WBC Differential Differential Comment PT INR Sodium Potassium Chloride Carbon Dioxide Anion Gap BUN Creatinine Estimated GFR POC Glucose 75 71 89 Random Glucose Calcium Stl C.difficile DNA Amp St C. diff Tox Epid 027 09/14/18 09/14/18 09/14/18 20:07 20:07 21:15 WBC 6.0 RBC 4.35 L Hgb 13.8 Hct 40.8 MCV 93.7 MCH 31.6 MCHC 33.7 RDW 16.6 Plt Count 144 L MPV 7.2 Neut % (Auto) 78.7 H Lymph % (Auto) 6.8 L [place] % (Auto) 11.2 H Eos % (Auto) 2.8 Baso % (Auto) 0.5 Neut # (Auto) 4.8 Lymph # (Auto) 0.4 L [place] # (Auto) 0.7 Eos # (Auto) 0.2 Baso # (Auto) 0.0 WBC Differential . Differential Comment Auto diff final PT INR Sodium 138 Potassium 4.2 Chloride 101 Carbon Dioxide 28.6 Anion Gap 8 BUN 28 H Creatinine 6.73 H Estimated GFR 8 L POC Glucose 81 Random Glucose 82 Calcium 8.1 L Stl C.difficile DNA Amp St C. diff Tox Epid 027 09/15/18 09/15/18 09/15/18 04:18 04:18 04:18 WBC 5.4 RBC 4.35 L Hgb 13.8 Hct 41.5 MCV 95.5 MCH 31.7 MCHC 33.2 RDW 16.8 Plt Count 148 L MPV 7.4 Neut % (Auto) 78.6 H Lymph % (Auto) 7.3 L [place] % (Auto) 10.6 H Eos % (Auto) 3.0 Baso % (Auto) 0.5 Neut # (Auto) 4.3 Lymph # (Auto) 0.4 L [place] # (Auto) 0.6 Eos # (Auto) 0.2 Baso # (Auto) 0.0 WBC Differential . Differential Comment Auto diff final PT 21.0 H INR 2.1 Sodium 139 Potassium 4.3 Chloride 100 Carbon Dioxide 28.4 Anion Gap 11 BUN 31 H Creatinine 7.47 H Estimated GFR 7 L POC Glucose Random Glucose 73 L Calcium 8.5 Stl C.difficile DNA Amp St C. diff Tox Epid 027 09/15/18 09/15/18 08:15 10:20 WBC RBC Hgb Hct MCV MCH MCHC RDW Plt Count MPV Neut % (Auto) Lymph % (Auto) [place] % (Auto) Eos % (Auto) Baso % (Auto) Neut # (Auto) Lymph # (Auto) [place] # (Auto) Eos # (Auto) Baso # (Auto) WBC Differential Differential Comment PT INR Sodium Potassium Chloride Carbon Dioxide Anion Gap BUN Creatinine Estimated GFR POC Glucose 81 Random Glucose Calcium Stl C.difficile DNA Amp Cancelled St C. diff Tox Epid 027 Cancelled Microbiology 09/14/18 01:15 Stool Giardia Antigen (MARTINE) - Final Negative - No Giardia Antigen detected In selected cases of patients with a history of immunosuppression or foreign travel, a full ova and parasites examination may be desired. Contact the microbiology lab if full workup is indicated and subit another specimen for testing. <Abebe Houston - Last Filed: 09/15/18 13:24> Assessment and Plan (1) GI bleed Status: Acute Code(s): K92.2 - Gastrointestinal hemorrhage, unspecified - Plan This patient is a 63-year-old male with past medical history significant for end-stage renal disease on hemodialysis, atrial fibrillation and hypertension. Past surgical history significant for metal removed from back, and left upper extremity AV fistula. Patient states hemodialysis treatments are every Wednesday and Wednesday. Patient was [facility] with reported black stools onset 1 month ago. Patient states he has been experiencing generalized weakness and has noted no abdominal pain fevers or chills. Patient denies any chest pain or shortness of breath. Denies nausea or vomiting. Patient currently on Coumadin for atrial fibrillation. Upon admission, INR found to be supra therapeutic at 4.8. Patient states last EGD done in December 2017 revealed gastric ulcer. Our service has been consulted to evaluate patient for GI bleeding. GI bleed INR 4.8 History of gastric ulcer Patient endorses black stools times 1 month. Patient with known ulcer disease diagnosed in December 2017. Denies any hematemesis. Currently on Coumadin for atrial fibrillation with INR 4.8. -WBC 6.1 hemoglobin 16.3 hematocrit 47.3 platelet count 172 -BUN 68 creatinine 9.1 GFR 6 calcium 5.9 total bilirubin 0.4 AST 21 ALT 23 alk phos 89 albumin 1.9 09/12/2018 Patient denies any noted bleeding Denies hematemesis or abdominal pain States he is hungry Currently receiving hemodialysis WBC 5.9 hemoglobin 15.1 hematocrit 45.0 INR 2.2 09/14/2018 Patient reports multiple stools overnight. C. difficile toxin negative, will repeat same and include additional stool studies. 09/13/2018 EGD revealed the following-- Esophagus: Z line seen at 40 cm, it had a regular smooth appearance. The esophageal mucosa was normal. Stomach: Direct and retroflex views were obtained. There were a few 5 mm gastric polyps seen in the body of the stomach, one was biopsied. The antrum had moderate erythema with edema and friability. Biopsy was obtained. No ulcers or erosions seen. Retroflex showed a normal cardia. Duodenum: The bulb revealed erythema and inflammation, the area was biopsied. No ulcer or erosions. In the second portion the ampulla was seen to be enlarged , edematous and erythematous with what appeared to be a central ulcer where the os should be. The ampulla was biopsied. (09/13) Hemoglobin 14.6 hematocrit 42.5 Plan -Renal diet -Monitor hemoglobin hematocrit -Monitor for bleeding -PPI -Stool studies pending -Supportive care -Avoid NSAIDs -Further recommendations to follow This patient has been seen by myself and and this note is written on his behalf - Attending Attestation Dr. Houston <Melly Carter - Last Filed: 09/14/18 15:20> (1) GI bleed Status: Acute Code(s): K92.2 - Gastrointestinal hemorrhage, unspecified - Attending Attestation The patient was seen and examined. I agree with the assessment and recommendations above. <Abebe Houston - Last Filed: 09/15/18 13:24>
[2018-09-14] MEDS ORDERED: Sodium Chloride 23.4% Inj 154 MEQ in Dextrose 10% in Water Inj 1,000 ML IV.CONT PRN ×2 (16:50)
[2018-09-14 21:11] LABS: Baso % (Auto) 0.5 % (0.0-2.0); Eos # (Auto) 0.2 th/mm3 (0.0-0.4); Eos % (Auto) 2.8 % (0.0-4.0); Hematocrit 40.8 % (39.0-51.0); Hemoglobin 13.8 gm/dL (13.0-17.0); Lymph # (Auto) 0.4 th/mm3 (1.0-4.8); Lymph % (Auto) 6.8 % (9.0-44.0); Mean Corpuscular HGB Conc 33.7 % (32.0-36.0); Mean Corpuscular Hemoglobin 31.6 pg (27.0-34.0); Mean Corpuscular Volume 93.7 fL (80.0-100.0); Mean Platelet Volume 7.2 fL (7.0-11.0); Mono # (Auto) 0.7 th/mm3 (0.0-0.9); Mono % (Auto) 11.2 % (0.0-8.0); Neut # (Auto) 4.8 th/mm3 (1.8-7.7); Neut % (Auto) 78.7 % (16.0-70.0); Platelet Count 144 th/mm3 (150-450); Red Blood Count 4.35 mil/mm3 (4.50-5.90); Red Cell Distribution Width 16.6 % (11.6-17.2)
[2018-09-14 21:31] LABS: Calcium 8.1 mg/dL (8.5-10.1); Carbon Dioxide 28.6 meq/L (21.0-32.0); Potassium 4.2 meq/L (3.5-5.1)
[2018-09-15] MEDS: Pantoprazole Inj 40 MG Vial IV.PUSH SCH ×2 (03:40→17:15)
[2018-09-15 05:15] LABS: Baso % (Auto) 0.5 % (0.0-2.0); Eos # (Auto) 0.2 th/mm3 (0.0-0.4); Hematocrit 41.5 % (39.0-51.0); Hemoglobin 13.8 gm/dL (13.0-17.0); Lymph # (Auto) 0.4 th/mm3 (1.0-4.8); Lymph % (Auto) 7.3 % (9.0-44.0); Mean Corpuscular HGB Conc 33.2 % (32.0-36.0); Mean Corpuscular Hemoglobin 31.7 pg (27.0-34.0); Mean Corpuscular Volume 95.5 fL (80.0-100.0); Mean Platelet Volume 7.4 fL (7.0-11.0); Mono # (Auto) 0.6 th/mm3 (0.0-0.9); Mono % (Auto) 10.6 % (0.0-8.0); Neut # (Auto) 4.3 th/mm3 (1.8-7.7); Neut % (Auto) 78.6 % (16.0-70.0); Platelet Count 148 th/mm3 (150-450); Red Blood Count 4.35 mil/mm3 (4.50-5.90); Red Cell Distribution Width 16.8 % (11.6-17.2); White Blood Count 5.4 th/mm3 (4.0-11.0)
[2018-09-15 05:26] LABS: INR 2.1 Ratio
[2018-09-15 05:37] LABS: Calcium 8.5 mg/dL (8.5-10.1); Carbon Dioxide 28.4 meq/L (21.0-32.0); Potassium 4.3 meq/L (3.5-5.1)
[2018-09-15] MEDS: Citalopram 20 MG Tablet PO SCH (10:16)
[2018-09-15] MEDS: Metoprolol Tartrate 25 MG Tablet PO SCH ×2 (10:16→20:26)
[2018-09-15] MEDS: Digoxin 125 MCG Tablet PO SCH (10:16)
--- NOTE | 2018-09-15 12:20 | P.PNNP ---
Subjective Interval history: Patient was seen, no distress, no complaints. Patient's get dialysis MWF. Patient was having loose stools yesterday but is Cdiff negative. <Lidia Gleason - Last Filed: 09/15/18 12:22> Physical Exam Vital signs: Vital Signs 09/14/18 17:30 09/14/18 19:48 09/14/18 20:30 Temperature 97.2 F L 98.6 F Pulse Rate 99 H 112 H 122 H Respiratory Rate 18 18 Blood Pressure 107/77 132/68 Pulse Oximetry 93 L 94 L 09/14/18 21:15 09/14/18 23:58 09/15/18 00:30 Temperature 98.1 F Pulse Rate 101 H 101 H Respiratory Rate 18 Blood Pressure 119/73 Pulse Oximetry 94 L 93 L 09/15/18 03:53 09/15/18 04:30 09/15/18 08:00 Temperature 98.3 F 98.3 F Pulse Rate 112 H 98 H 95 H Respiratory Rate 18 16 Blood Pressure 99/64 L 106/68 Pulse Oximetry 92 L 93 L 09/15/18 09:00 Temperature Pulse Rate 95 H Respiratory Rate Blood Pressure Pulse Oximetry Intake & Output 09/14/18 09/15/18 09/15/18 18:59 06:59 18:59 Intake Total 400 / 400 1398.5 / 1398.5 Output Total 3000 / 3000 Balance -2600 / -2600 1398.5 / 1398.5 Weight 76.7 kg Intake: IV 1038.5 / 1038.5 Sodium Chloride 23.4% Inj 154 1038.5 / 1038.5 MEQ In D10W Inj 1,000 ML @ 50 mls/hr IV.CONT .[id number] [facility] Rx# :[id number] Oral 400 / 400 360 / 360 Output: Hemodialysis Amount 3000 / 3000 Other: # Voids 0 Date of Last Bowel Movement 09/14/18 09/14/18 09/15/18 # Bowel Movements 2 0 Narrative: GENERAL: No Distress. SKIN: Warm and dry. HEAD: Atraumatic. Normocephalic. CARDIOVASCULAR: Regular rate and rhythm. RESPIRATORY: No accessory muscle use. Clear to auscultation. GASTROINTESTINAL: Abdomen soft, non-tender, non-distended. MUSCULOSKELETAL: Chronic venous deficiency bilateral lower legs. Right heel wrapped in gauze. NEUROLOGICAL: Awake and alert. <Lidia Gleason - Last Filed: 09/15/18 12:22> Vital signs: Vital Signs 09/14/18 23:58 09/15/18 00:30 09/15/18 03:53 Temperature 98.1 F Pulse Rate 101 H 101 H 112 H Respiratory Rate 18 Blood Pressure 119/73 Pulse Oximetry 93 L 09/15/18 04:30 09/15/18 08:00 09/15/18 09:00 Temperature 98.3 F 98.3 F Pulse Rate 98 H 95 H 95 H Respiratory Rate 18 16 Blood Pressure 99/64 L 106/68 Pulse Oximetry 92 L 93 L 09/15/18 12:00 09/15/18 16:00 09/15/18 19:20 Temperature 97.8 F 97.6 F 98.2 F Pulse Rate 94 H 86 99 H Respiratory Rate 18 18 24 Blood Pressure 101/71 113/74 104/65 Pulse Oximetry 93 L 91 L 95 09/15/18 20:00 Temperature Pulse Rate 97 H Respiratory Rate Blood Pressure Pulse Oximetry Intake & Output 09/15/18 09/15/18 09/16/18 06:59 18:59 06:59 Intake Total 1398.5 / 1398.5 Balance 1398.5 / 1398.5 Weight 76.7 kg Intake: IV 1038.5 / 1038.5 Sodium Chloride 23.4% Inj 154 1038.5 / 1038.5 MEQ In D10W Inj 1,000 ML @ 50 mls/hr IV.CONT .[id number] [facility] Rx# :[id number] Oral 360 / 360 Other: # Voids 0 # Urine Diapers 2 Date of Last Bowel Movement 09/14/18 09/15/18 # Bowel Movements 0 1 <Varun Chisholm - Last Filed: 09/15/18 22:12> Assessment and Plan - Assessment (1) End-stage renal disease on hemodialysis Code(s): N18.6 - End stage renal disease; Z99.2 - Dependence on renal dialysis Status: Acute Plan: Patient gets dialysis MWF. Patient to be dialyzed tomorrow. Monitor fluid and electrolytes. Avoid nephrotoxic agents. Avoid BP measurements or blood draws in L arm, AVF. (2) GI bleed Code(s): K92.2 - Gastrointestinal hemorrhage, unspecified Status: Acute Plan: s/p EGD, results reviewed. GI on the case. Hematology consulted and ordered workup for PV. Results pending. (3) Afib Code(s): I48.91 - Unspecified atrial fibrillation Status: Acute Plan: On metoprolol. Coumadin on hold. <Lidia Gleason - Last Filed: 09/15/18 12:22> - Assessment (1) End-stage renal disease on hemodialysis Code(s): N18.6 - End stage renal disease; Z99.2 - Dependence on renal dialysis Status: Acute (2) GI bleed Code(s): K92.2 - Gastrointestinal hemorrhage, unspecified Status: Acute (3) Afib Code(s): I48.91 - Unspecified atrial fibrillation Status: Acute - Attending Attestation patient was seen and examined. Agree with above assessment and plan. <Varun Chisholm - Last Filed: 09/15/18 22:12>
--- NOTE | 2018-09-15 13:01 | P.PNWCN ---
Wound Care Nurse Consult Description: Received wound management consult for pressure ulcer on R heel from BARRY Grigsby. Communicated with: ROBYN Richardson and BARRY Grigsby Recommendation: 1.Please cleanse wound with R heel with wound cleanser or normal saline and pat dry. 2. Cover wound on R heel with Xeroform gauze cut to fit just on wound bed and cover with ABD pad, secured with rolled gauze and tape.may secure further with stockinette. 3. Change dressing every 2 days or as needed if saturated or dislodged. 4. Please float heels off mattress or apply heel raiser boots 5. Patient may resume previous wound care orders at facility when he is discharged from hospital Wound/Pressure Injury - Wound Right Heel Wound Staging: Stage III Wound Type: Pressure Injury Is This a Chronic Wound: No Requested from Provider a Wound Care Consult: Yes (Wound care saw patient today) Length (cm): 0.5 Width (cm): 0.5 Depth (cm): 0.1 (~0.1cm) Wound Bed Appearance: [place], Yellow Wound Bed Appearance: Wound bed presents with ~80% dried yellow tissue and ~20% dried dark pink tissue. Surrounding Tissue Appearance: [place], Shiny Surrounding Tissue Temperature: Cool Drainage Description: [place] Drainage Amount: Scant Drainage Odor: No Odor Dressing Status: Changed Cleansing Solution: Saline Primary Dressing: Xeroform gauze Cover Dressing: ABD pad, secured with rolled gauze Tape Type: Paper Wound Dressing Change Date: 09/15/18 Wound Margin Description: Wound margins are even and well defined. - Additional Information Patient seen on for evaluation R heel pressure injury. Patient states, "Wound care nurse changes dressing at the [facility]." Patient does not know what dressing is being applied, has had wound for quite some time. Removed collagen dressing in place to reveal wound that is dry with 80% dry yellow tissue and ~20% dry pink tissue. Periwound presents as pink scar tissue.Wound was cleansed with normal saline and patted dry. Applied Xeroform cut to fit wound bed and covered with ABD pad, secured with rolled gauze and tape. Wound measurements, description and wound care recommendations are noted above. Patient tolerated wound assessment well.
--- NOTE | 2018-09-15 19:44 | P.PNGI ---
Subjective Interval history: Patient awake and alert Denies abdominal pain Denies any diarrhea No nausea vomiting <Carter,Melly - Last Filed: 09/15/18 19:39> Physical Exam Vital signs: Vital Signs 09/14/18 19:48 09/14/18 20:30 09/14/18 21:15 Temperature 98.6 F Pulse Rate 112 H 122 H Respiratory Rate 18 Blood Pressure 132/68 Pulse Oximetry 94 L 94 L 09/14/18 23:58 09/15/18 00:30 09/15/18 03:53 Temperature 98.1 F Pulse Rate 101 H 101 H 112 H Respiratory Rate 18 Blood Pressure 119/73 Pulse Oximetry 93 L 09/15/18 04:30 09/15/18 08:00 09/15/18 09:00 Temperature 98.3 F 98.3 F Pulse Rate 98 H 95 H 95 H Respiratory Rate 18 16 Blood Pressure 99/64 L 106/68 Pulse Oximetry 92 L 93 L 09/15/18 12:00 09/15/18 16:00 Temperature 97.8 F 97.6 F Pulse Rate 94 H 86 Respiratory Rate 18 18 Blood Pressure 101/71 113/74 Pulse Oximetry 93 L 91 L Intake & Output 09/15/18 09/15/18 09/16/18 06:59 18:59 06:59 Intake Total 1398.5 / 1398.5 Balance 1398.5 / 1398.5 Weight 76.7 kg Intake: IV 1038.5 / 1038.5 Sodium Chloride 23.4% Inj 154 1038.5 / 1038.5 MEQ In D10W Inj 1,000 ML @ 50 mls/hr IV.CONT .[id number] [facility] Rx# :[id number] Oral 360 / 360 Other: # Voids 0 # Urine Diapers 2 Date of Last Bowel Movement 09/14/18 09/15/18 # Bowel Movements 0 1 - Constitutional no acute distress, chronically ill appearing - Routine HEENT Exam Head: Present: normocephalic - Routine Respiratory Exam Present: CTA bilaterally. Absent: accessory muscle use - Routine Cardiovascular Exam Present: RRR - Routine Abdominal Exam Present: soft, normoactive bowel sounds. Absent: tenderness - Routine Extremities Exam Absent: edema - Routine Skin Exam Present: dry, warm - Routine Neurological Exam Present: alert - Routine Psychiatric Exam Present: normal affect, cooperative <Carter,Melly - Last Filed: 09/15/18 19:39> Vital signs: Vital Signs 09/15/18 09:00 09/15/18 12:00 09/15/18 16:00 Temperature 97.8 F 97.6 F Pulse Rate 95 H 94 H 86 Respiratory Rate 18 18 Blood Pressure 101/71 113/74 Pulse Oximetry 93 L 91 L 09/15/18 19:20 09/15/18 20:00 09/15/18 23:19 Temperature 98.2 F 97.4 F L Pulse Rate 99 H 97 H 99 H Respiratory Rate 24 22 Blood Pressure 104/65 115/72 Pulse Oximetry 95 94 L 09/16/18 00:00 09/16/18 03:30 Temperature 98.2 F Pulse Rate 96 H 100 H Respiratory Rate 20 Blood Pressure 110/72 Pulse Oximetry 94 L Intake & Output 09/15/18 09/16/18 09/16/18 18:59 06:59 18:59 Intake Total 0 / 0 Balance 0 / 0 Weight 76.7 kg Intake: Other 0 / 0 Other: Other Intake Source Saline Solution # Urine Diapers 2 Date of Last Bowel Movement 09/15/18 # Bowel Movements 1 <Abebe Houston - Last Filed: 09/16/18 08:48> Results - Labs CBC & Chem 7: 09/15/18 04:18 09/15/18 04:18 Laboratory Results - last 24 hr 09/14/18 09/14/18 09/14/18 20:07 20:07 21:15 WBC 6.0 RBC 4.35 L Hgb 13.8 Hct 40.8 MCV 93.7 MCH 31.6 MCHC 33.7 RDW 16.6 Plt Count 144 L MPV 7.2 Neut % (Auto) 78.7 H Lymph % (Auto) 6.8 L [place] % (Auto) 11.2 H Eos % (Auto) 2.8 Baso % (Auto) 0.5 Neut # (Auto) 4.8 Lymph # (Auto) 0.4 L [place] # (Auto) 0.7 Eos # (Auto) 0.2 Baso # (Auto) 0.0 WBC Differential . Differential Comment Auto diff final PT INR Sodium 138 Potassium 4.2 Chloride 101 Carbon Dioxide 28.6 Anion Gap 8 BUN 28 H Creatinine 6.73 H Estimated GFR 8 L POC Glucose 81 Random Glucose 82 Calcium 8.1 L Stl C.difficile DNA Amp St C. diff Tox Epid 027 09/15/18 09/15/18 09/15/18 04:18 04:18 04:18 WBC 5.4 RBC 4.35 L Hgb 13.8 Hct 41.5 MCV 95.5 MCH 31.7 MCHC 33.2 RDW 16.8 Plt Count 148 L MPV 7.4 Neut % (Auto) 78.6 H Lymph % (Auto) 7.3 L [place] % (Auto) 10.6 H Eos % (Auto) 3.0 Baso % (Auto) 0.5 Neut # (Auto) 4.3 Lymph # (Auto) 0.4 L [place] # (Auto) 0.6 Eos # (Auto) 0.2 Baso # (Auto) 0.0 WBC Differential . Differential Comment Auto diff final PT 21.0 H INR 2.1 Sodium 139 Potassium 4.3 Chloride 100 Carbon Dioxide 28.4 Anion Gap 11 BUN 31 H Creatinine 7.47 H Estimated GFR 7 L POC Glucose Random Glucose 73 L Calcium 8.5 Stl C.difficile DNA Amp St C. diff Tox Epid 027 09/15/18 09/15/18 09/15/18 08:15 10:20 17:13 WBC RBC Hgb Hct MCV MCH MCHC RDW Plt Count MPV Neut % (Auto) Lymph % (Auto) [place] % (Auto) Eos % (Auto) Baso % (Auto) Neut # (Auto) Lymph # (Auto) [place] # (Auto) Eos # (Auto) Baso # (Auto) WBC Differential Differential Comment PT INR Sodium Potassium Chloride Carbon Dioxide Anion Gap BUN Creatinine Estimated GFR POC Glucose 81 93 Random Glucose Calcium Stl C.difficile DNA Amp Cancelled St C. diff Tox Epid 027 Cancelled Microbiology 09/15/18 10:20 Stool Enteric Pathogens (PCR) - Final No enteric pathogens detected by PCR (No Salmonella sp., Shigella sp., Campylobacter sp., Yersinia enterocolitica, Vibrio sp., Norovirus, or EHEC (Shiga Toxin 1 or Shiga Toxin 2) detected. 09/14/18 01:15 Stool Giardia Antigen (MARTINE) - Final Negative - No Giardia Antigen detected In selected cases of patients with a history of immunosuppression or foreign travel, a full ova and parasites examination may be desired. Contact the microbiology lab if full workup is indicated and subit another specimen for testing. <Melly Carter - Last Filed: 09/15/18 19:39> - Labs CBC & Chem 7: 09/15/18 04:18 09/15/18 04:18 Laboratory Results - last 24 hr 09/13/18 09/15/18 09/15/18 05:10 10:20 17:13 POC Glucose 93 Erythropoietin 25.5 H Stl C.difficile DNA Amp Cancelled St C. diff Tox Epid 027 Cancelled 09/15/18 09/16/18 21:42 06:12 POC Glucose 94 77 Erythropoietin Stl C.difficile DNA Amp St C. diff Tox Epid 027 Microbiology 09/15/18 10:20 Stool Enteric Pathogens (PCR) - Final No enteric pathogens detected by PCR (No Salmonella sp., Shigella sp., Campylobacter sp., Yersinia enterocolitica, Vibrio sp., Norovirus, or EHEC (Shiga Toxin 1 or Shiga Toxin 2) detected. 09/14/18 01:15 Stool Giardia Antigen (MARTINE) - Final Negative - No Giardia Antigen detected In selected cases of patients with a history of immunosuppression or foreign travel, a full ova and parasites examination may be desired. Contact the microbiology lab if full workup is indicated and subit another specimen for testing. <Abebe Houston - Last Filed: 09/16/18 08:48> Assessment and Plan (1) GI bleed Status: Acute Code(s): K92.2 - Gastrointestinal hemorrhage, unspecified - Plan This patient is a 63-year-old male with past medical history significant for end-stage renal disease on hemodialysis, atrial fibrillation and hypertension. Past surgical history significant for metal removed from back, and left upper extremity AV fistula. Patient states hemodialysis treatments are every Wednesday and Wednesday. Patient was sent to [facility] from a shelter facility with reported black stools onset 1 month ago. Patient states he has been experiencing generalized weakness and has noted no abdominal pain fevers or chills. Patient denies any chest pain or shortness of breath. Denies nausea or vomiting. Patient currently on Coumadin for atrial fibrillation. Upon admission, INR found to be supra therapeutic at 4.8. Patient states last EGD done in December 2017 revealed gastric ulcer. Our service has been consulted to evaluate patient for GI bleeding. GI bleed INR 4.8 History of gastric ulcer Patient endorses black stools times 1 month. Patient with known ulcer disease diagnosed in December 2017. Denies any hematemesis. Currently on Coumadin for atrial fibrillation with INR 4.8. -WBC 6.1 hemoglobin 16.3 hematocrit 47.3 platelet count 172 -BUN 68 creatinine 9.1 GFR 6 calcium 5.9 total bilirubin 0.4 AST 21 ALT 23 alk phos 89 albumin 1.9 09/12/2018 Patient denies any noted bleeding Denies hematemesis or abdominal pain States he is hungry Currently receiving hemodialysis WBC 5.9 hemoglobin 15.1 hematocrit 45.0 INR 2.2 09/14/2018 Patient reports multiple stools overnight. C. difficile toxin negative, will repeat same and include additional stool studies. 09/13/2018 EGD revealed the following-- Esophagus: Z line seen at 40 cm, it had a regular smooth appearance. The esophageal mucosa was normal. Stomach: Direct and retroflex views were obtained. There were a few 5 mm gastric polyps seen in the body of the stomach, one was biopsied. The antrum had moderate erythema with edema and friability. Biopsy was obtained. No ulcers or erosions seen. Retroflex showed a normal cardia. Duodenum: The bulb revealed erythema and inflammation, the area was biopsied. No ulcer or erosions. In the second portion the ampulla was seen to be enlarged , edematous and erythematous with what appeared to be a central ulcer where the os should be. The ampulla was biopsied. (09/13) Hemoglobin 14.6 hematocrit 42.5 09/15/2018 Patient denies diarrhea, abdominal pain or nausea vomiting. WBC 5.4 hemoglobin 13.8 hematocrit 41.5 EGD findings as noted above Surgical specimen pathology reveal the following findings-- AMPULLA, BIOPSY: DUODENAL MUCOSA WITH GRANULATION TISSUE FORMATION AND DETACHED ATYPICAL EPITHELIUM. DUODENUM, BIOPSY: DUODENAL MUCOSA WITH PEPTIC DUODENITIS. GASTRIC ANTRUM, BIOPSY: ANTRAL MUCOSA WITH REACTIVE GASTROPATHY, MAY BE SEEN WITH BILE REFLUX OR DRUG THERAPY. GASTRIC BODY, BIOPSY: GASTRIC MUCOSA WITH MILD ACTIVE CHRONIC GASTRITIS. Plan -Renal diet -N.p.o. after midnight -Obtain consent for EUS-granulation tissue formation and detached atypical epithelium-ampulla -Monitor hemoglobin hematocrit -Monitor for bleeding -PPI -Stool studies pending -Supportive care -Avoid NSAIDs -Further recommendations to follow This patient has been seen by myself and and this note is written on his behalf - Attending Attestation Dr. [place] <Melly Carter - Last Filed: 09/15/18 19:39> (1) GI bleed Status: Acute Code(s): K92.2 - Gastrointestinal hemorrhage, unspecified - Attending Attestation The patient is seen and examined. I agree with the assessment and recommendations above. <Abebe Houston - Last Filed: 09/16/18 08:48>
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
[2018-09-15 23:52] LABS: Erythropoietin 25.5 mIU/mL (2.6-18.5)
[2018-09-16] MEDS: Pantoprazole Inj 40 MG Vial IV.PUSH SCH ×2 (03:23→17:34)
[2018-09-16 10:22] LABS: INR 5.3 Ratio; Prothrombin Time 53.1 sec (9.8-11.6)
--- NOTE | 2018-09-16 10:41 | P.PNNP ---
Subjective Interval history: Patient was seen during dialysis, 350 ml/min, UF goal of 2.3 L. Patient gets dialysis MWF. Patient had no complaints, stated he hasn't had any diarrhea for at least 24 hours. <Lidia Gleason - Last Filed: 09/16/18 10:37> Physical Exam Vital signs: Vital Signs 09/15/18 12:00 09/15/18 16:00 09/15/18 19:20 Temperature 97.8 F 97.6 F 98.2 F Pulse Rate 94 H 86 99 H Respiratory Rate 18 18 24 Blood Pressure 101/71 113/74 104/65 Pulse Oximetry 93 L 91 L 95 09/15/18 20:00 09/15/18 23:19 09/16/18 00:00 Temperature 97.4 F L Pulse Rate 97 H 99 H 96 H Respiratory Rate 22 Blood Pressure 115/72 Pulse Oximetry 94 L 09/16/18 03:30 09/16/18 07:28 Temperature 98.2 F 97.8 F Pulse Rate 100 H 105 H Respiratory Rate 20 18 Blood Pressure 110/72 103/68 Pulse Oximetry 94 L 92 L Intake & Output 09/15/18 09/16/18 09/16/18 18:59 06:59 18:59 Intake Total 0 / 0 Balance 0 / 0 Weight 76.7 kg Intake: Other 0 / 0 Other: Other Intake Source Saline Solution # Urine Diapers 2 Date of Last Bowel Movement 09/15/18 # Bowel Movements 1 Narrative: GENERAL: No Distress. SKIN: Warm and dry. HEAD: Atraumatic. Normocephalic. CARDIOVASCULAR: Regular rate and rhythm. RESPIRATORY: No accessory muscle use. Clear to auscultation. GASTROINTESTINAL: Abdomen soft, non-tender, non-distended. MUSCULOSKELETAL: Chronic venous deficiency bilateral lower legs. Right heel wrapped in gauze. NEUROLOGICAL: Awake and alert. <Lidia Gleason - Last Filed: 09/16/18 10:37> Vital signs: Vital Signs 09/15/18 19:20 09/15/18 20:00 09/15/18 23:19 Temperature 98.2 F 97.4 F L Pulse Rate 99 H 97 H 99 H Respiratory Rate 24 22 Blood Pressure 104/65 115/72 Pulse Oximetry 95 94 L 09/16/18 00:00 09/16/18 03:30 09/16/18 07:28 Temperature 98.2 F 97.8 F Pulse Rate 96 H 100 H 105 H Respiratory Rate 20 18 Blood Pressure 110/72 103/68 Pulse Oximetry 94 L 92 L 09/16/18 14:00 Temperature 98 F Pulse Rate 105 H Respiratory Rate 18 Blood Pressure 111/66 Pulse Oximetry 97 Intake & Output 09/15/18 09/16/18 09/16/18 18:59 06:59 18:59 Intake Total 0 / 0 Output Total 1999 Balance 0 / 0 -1999 Weight 76.7 kg Intake: Other 0 / 0 Output: Hemodialysis Amount 1999 Other: Other Intake Source Saline Solution # Urine Diapers 2 Date of Last Bowel Movement 09/15/18 09/15/18 # Bowel Movements 1 <Varun Chisholm - Last Filed: 09/16/18 16:50> Assessment and Plan - Assessment (1) End-stage renal disease on hemodialysis Code(s): N18.6 - End stage renal disease; Z99.2 - Dependence on renal dialysis Status: Acute Plan: Patient was seen during dialysis, 350 ml/min, UF goal of 2.3 L. Patient gets dialysis MWF. Monitor fluid and electrolytes. Avoid nephrotoxic agents. Avoid BP measurements or blood draws in L arm, AVF. (2) GI bleed Code(s): K92.2 - Gastrointestinal hemorrhage, unspecified Status: Acute Plan: s/p EGD, results reviewed. GI on the case. Hematology consulted and ordered workup for PV. Results pending (from 09/13). (3) Afib Code(s): I48.91 - Unspecified atrial fibrillation Status: Acute Plan: On metoprolol. Patient restarted on Coumadin. <Lidia Gleason - Last Filed: 09/16/18 10:37> - Assessment (1) End-stage renal disease on hemodialysis Code(s): N18.6 - End stage renal disease; Z99.2 - Dependence on renal dialysis Status: Acute (2) GI bleed Code(s): K92.2 - Gastrointestinal hemorrhage, unspecified Status: Acute (3) Afib Code(s): I48.91 - Unspecified atrial fibrillation Status: Acute - Attending Attestation patient was seen and examined. Agree with above assessment and plan. He can be discharged from renal standpoint. <Varun Chisholm - Last Filed: 09/16/18 16:50>
--- NOTE | 2018-09-16 13:32 | P.PNONC ---
Subjective Interval history: Patient is feeling better No more diarrhea Patient is been tolerating hemodialysis well. No more GI bleeding Objective Vital Signs/Intake & Output: Vital Signs 09/15/18 16:00 09/15/18 19:20 09/15/18 20:00 Temperature 97.6 F 98.2 F Pulse Rate 86 99 H 97 H Respiratory Rate 18 24 Blood Pressure 113/74 104/65 Pulse Oximetry 91 L 95 09/15/18 23:19 09/16/18 00:00 09/16/18 03:30 Temperature 97.4 F L 98.2 F Pulse Rate 99 H 96 H 100 H Respiratory Rate 22 20 Blood Pressure 115/72 110/72 Pulse Oximetry 94 L 94 L 09/16/18 07:28 Temperature 97.8 F Pulse Rate 105 H Respiratory Rate 18 Blood Pressure 103/68 Pulse Oximetry 92 L Intake & Output 09/15/18 09/16/18 09/16/18 18:59 06:59 18:59 Intake Total 0 / 0 Output Total 1999 Balance 0 / 0 -1999 Weight 76.7 kg Intake: Other 0 / 0 Output: Hemodialysis Amount 1999 Other: Other Intake Source Saline Solution # Urine Diapers 2 Date of Last Bowel Movement 09/15/18 # Bowel Movements 1 Result Diagrams: 09/15/18 04:18 09/15/18 04:18 Laboratory Results: Laboratory Results - last 24 hr 09/13/18 09/15/18 09/15/18 05:10 17:13 21:42 PT INR POC Glucose 93 94 Erythropoietin 25.5 H 09/16/18 09/16/18 06:12 08:50 PT 53.1 H D INR 5.3 POC Glucose 77 Erythropoietin Culture Results: Microbiology 09/15/18 10:20 Stool for WBCs - Final Stool 09/15/18 10:20 Enteric Pathogens (PCR) - Final Stool No enteric pathogens detected by PCR (No Salmonella sp., Shigella sp., Campylobacter sp., Yersinia enterocolitica, Vibrio sp., Norovirus, or EHEC (Shiga Toxin 1 or Shiga Toxin 2) detected. 09/14/18 01:15 Giardia Antigen (MARTINE) - Final Stool Negative - No Giardia Antigen detected In selected cases of patients with a history of immunosuppression or foreign travel, a full ova and parasites examination may be desired. Contact the microbiology lab if full workup is indicated and subit another specimen for testing. Medications: Active Medications Generic Name Dose Route Start Last Admin Trade Name Freq PRN Reason Stop Dose Admin Cinacalcet 60 mg 09/12/18 09:00 09/15/18 10:16 Sensipar PO 60 mg DAILY YAMILETH Administration Citalopram Hydrobromide 20 mg 09/12/18 09:00 09/15/18 10:16 Celexa PO 20 mg DAILY YAMILETH Administration Clindamycin HCl 300 mg 09/13/18 18:00 09/16/18 06:11 Cleocin PO 09/17/18 23:59 300 mg Q6HR YAMILETH Administration Digoxin 125 mcg 09/12/18 09:00 09/15/18 10:16 Lanoxin PO 125 mcg DAILY YAMILETH Administration Gelatin 1 foam 09/11/18 14:05 09/12/18 15:25 Gelfoam 12 Mm/7 Mm Topical TOPICAL 1 foam PRN PRN Administration help stop bleeding from site Sodium Chloride 500 mls @ 30 mls/hr 09/13/18 06:00 09/13/18 09:10 Ns Inj IV.SIG Not Given .Q10H YAMILETH Metoprolol Tartrate 25 mg 09/11/18 21:00 09/15/18 20:26 Lopressor PO 25 mg BID YAMILETH Administration Midodrine 10 mg 09/12/18 14:00 09/14/18 15:40 Proamatine PO 10 mg MoWeFr YAMILETH Administration Pantoprazole Sodium 40 mg 09/11/18 16:00 09/16/18 03:23 Protonix Inj IV.PUSH 40 mg Q12H YAMILETH Administration Sevelamer Carbonate 800 mg 09/14/18 12:00 09/15/18 17:14 Renvela PO 800 mg TIDAC YAMILETH Administration Sodium Chloride 2 ml 09/11/18 08:58 09/15/18 20:27 Ns Flush IV.FLUSH 2 ml PRN PRN Administration FLUSH AFTER USING IV ACCESS Sodium Chloride 5 ml 09/11/18 14:05 09/16/18 03:23 Ns Flush IV.FLUSH 5 ml PRN PRN Administration flush each lumen during HD Warfarin Sodium 4 mg 09/15/18 16:00 09/15/18 17:14 Coumadin PO 4 mg DAILY@1600 YAMILETH Administration Objective Remarks: GENERAL: Well-nourished, well-developed patient. SKIN: Warm and dry. HEAD: Normocephalic. EYES: No scleral icterus. No injection or drainage. NECK: Supple, trachea midline. No JVD or lymphadenopathy. LYMPHATIC: No adenopathy. CARDIOVASCULAR: Regular rate and rhythm without murmurs. RESPIRATORY: Breath sounds equal bilaterally. No accessory muscle use. GASTROINTESTINAL: Abdomen soft, non-tender, nondistended. EXTREMITIES: No cyanosis, or edema. MUSCULOSKELETAL: Adequate muscle tone. NEUROLOGICAL: No obvious focal deficit. Awake, alert, and oriented x3. PSYCHIATRIC: Appropriate mood and affect; insight and judgment normal. Assessment/Plan (1) Polycythemia Code(s): D75.1 - Secondary polycythemia Status: Acute - Plan Patient underwent workup for polycythemia. When I last saw him 2 months ago at [facility] office, I have order Noah 2 mutation and BCR ABL. Both came back negative. Noah 2 mutation and BCR ABL were ordered during this admission since I did not have the previous results available and they are still pending. Erythropoietin level is high which argues against polycythemia vera. Also Noah 2 mutation is negative which also argue against polycythemia vera. Most likely cause of polycythemia is reactive. No specific treatment is indicated. Patient is cleared to discharge from my standpoint. Please give him an appointment in 4-6 weeks to come back to the office for follow-up. I will sign off on the case. I will be available as needed.
--- NOTE | 2018-09-16 15:39 | P.PN ---
Subjective Interval history: Follow-up visit for GI bleed. Patient is seen and examined resting in bed and appears to be in no acute distress. Received hemodialysis this morning with 2 L removed. Patient denies any fevers, chills, cough, nausea, vomiting, shortness of breath or chest pain. Patient does endorse soft stools but states that his last bowel movement was about 11 hours ago, denies abdominal pain, black or bloody stools, no reports of bleeding. Discuss abnormal INR with patient as well as possibility of procedure being held due to elevated coagulation. Physical Exam Vital signs: Vital Signs 09/15/18 16:00 09/15/18 19:20 09/15/18 20:00 Temperature 97.6 F 98.2 F Pulse Rate 86 99 H 97 H Respiratory Rate 18 24 Blood Pressure 113/74 104/65 Pulse Oximetry 91 L 95 09/15/18 23:19 09/16/18 00:00 09/16/18 03:30 Temperature 97.4 F L 98.2 F Pulse Rate 99 H 96 H 100 H Respiratory Rate 22 20 Blood Pressure 115/72 110/72 Pulse Oximetry 94 L 94 L 09/16/18 07:28 09/16/18 14:00 Temperature 97.8 F 98 F Pulse Rate 105 H 105 H Respiratory Rate 18 18 Blood Pressure 103/68 111/66 Pulse Oximetry 92 L 97 Intake & Output 09/15/18 09/16/18 09/16/18 18:59 06:59 18:59 Intake Total 0 / 0 Output Total 1999 Balance 0 / 0 -1999 Weight 76.7 kg Intake: Other 0 / 0 Output: Hemodialysis Amount 1999 Other: Other Intake Source Saline Solution # Urine Diapers 2 Date of Last Bowel Movement 09/15/18 09/15/18 # Bowel Movements 1 Narrative: GENERAL: Well-developed, well-nourished male resting in bed in no acute distress. SKIN: Warm and dry. Right heel wound healing well, no erythema or visible drainage. HEAD: Atraumatic. Normocephalic. EYES: Pupils equal and round. No scleral icterus. No injection or drainage. ENT: No nasal bleeding or discharge. Mucous membranes pink and moist. NECK: Trachea midline. CARDIOVASCULAR: Irregular rhythm with 2/6 murmur. Left upper extremity fistula with positive bruit and thrill. RESPIRATORY: No accessory muscle use. Clear to auscultation. Breath sounds equal bilaterally. GASTROINTESTINAL: Abdomen soft, non-tender, nondistended. + Bowel sounds MUSCULOSKELETAL: Extremities without clubbing, cyanosis, or edema. No obvious deformities. NEUROLOGICAL: Awake, alert, oriented x3. No obvious cranial nerve deficits. Motor grossly within normal limits. Normal speech. PSYCHIATRIC: Appropriate mood and affect; insight and judgment normal. Results - Labs CBC & Chem 7: 09/15/18 04:18 09/16/18 14:57 Laboratory Results - last 24 hr 09/13/18 09/15/18 09/15/18 05:10 17:13 21:42 PT INR POC Glucose 93 94 Erythropoietin 25.5 H 09/16/18 09/16/18 06:12 08:50 PT 53.1 H D INR 5.3 POC Glucose 77 Erythropoietin Microbiology 09/15/18 10:20 Stool Stool for WBCs - Final 09/15/18 10:20 Stool Enteric Pathogens (PCR) - Final No enteric pathogens detected by PCR (No Salmonella sp., Shigella sp., Campylobacter sp., Yersinia enterocolitica, Vibrio sp., Norovirus, or EHEC (Shiga Toxin 1 or Shiga Toxin 2) detected. Assessment and Plan - Assessment (1) End-stage renal disease on hemodialysis Code(s): N18.6 - End stage renal disease; Z99.2 - Dependence on renal dialysis Status: Acute (2) GI bleed Code(s): K92.2 - Gastrointestinal hemorrhage, unspecified Status: Acute (3) Afib Code(s): I48.91 - Unspecified atrial fibrillation Status: Acute - Plan This patient is a 63 y/o male with a dx of ESRD on MWF, a fib on coumadin, HTN, Last HD on Wednesday through left upper ext AVF. Patient says he has been having black stools for the past month but did not want to come to the hospital. Yesterday he had an episode of black diarrhea and decided to come into the ED for evaluation. He says he has also been feeling weak. In the ED he was found to be hypotensive. INR found to be supratherapeutic at 4.8. Supratherapeutic INR with likely Upper GI Bleed -INR improved to 2.2 after vit K and 1 unit ffp. -Coumadin restarted, INR this morning 5.3, hold Coumadin, recheck INR 6.3, will give one time dose of vitamin K p.o. and recheck INR in the a.m. GI consulted, EGD done 09/13 -ulcer; biopsies taken. GI recommending no anticoagulation A. fib; risk of clot currently outweighs risk of bleed so anticoagulation was resumed. -Planned EUS today per GI. Hypoglycemia -Required glucagon and D10 on 09/12 -Currently resolved; patient was worked up for similar before but is unable to give results other than "they think they gave me the wrong pills". -Blood sugar stable; may need endocrinology workup as outpatient A. fib with RVR -Continue digoxin and BB. Right foot heel ulcer -Stopped Bactrim which was prescribed at [facility] due to potential interaction with Coumadin. Patient to come complete p.o. clindamycin 09/17. -Wound healing well with no signs of infection. ESRD on HD -Hyperkalemia; improved with HD -Nephrology following. 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 - Noah 2 mutation negative in the past, recheck pending. Hematology suspects polycythemia is reactive, no treatment indicated. -Hematology has signed off with follow-up as outpatient in 4-6 weeks. Diarrhea, improving -C. difficile negative, continue to monitor. DVT prophylaxis: Coumadin on hold secondary to supratherapeutic INR. Discussed Condition With: Patient and RN
[2018-09-16 15:45] LABS: Prothrombin Time 62.8 sec (9.8-11.6)
[2018-09-16 15:49] LABS: INR 6.3 Ratio
[2018-09-16] MEDS ORDERED: Phytonadione 5 MG/SWFI 5 ML Oral Syringe PO ONE (17:00)
[2018-09-16] MEDS: Metoprolol Tartrate 25 MG Tablet PO SCH ×2 (17:38→22:15)
[2018-09-16] MEDS: Digoxin 125 MCG Tablet PO SCH (17:38)
[2018-09-16] MEDS: Citalopram 20 MG Tablet PO SCH (17:38)
[2018-09-17] MEDS: Pantoprazole Inj 40 MG Vial IV.PUSH SCH ×2 (04:00→16:57)
[2018-09-17 07:14] LABS: Baso # (Auto) 0.1 th/mm3 (0.0-0.2); Baso % (Auto) 0.8 % (0.0-2.0); Eos # (Auto) 0.2 th/mm3 (0.0-0.4); Eos % (Auto) 3.5 % (0.0-4.0); Hematocrit 41.6 % (39.0-51.0); INR 1.9 Ratio; Lymph # (Auto) 0.4 th/mm3 (1.0-4.8); Lymph % (Auto) 6.8 % (9.0-44.0); Mean Corpuscular HGB Conc 33.6 % (32.0-36.0); Mean Corpuscular Hemoglobin 32.2 pg (27.0-34.0); Mean Corpuscular Volume 95.8 fL (80.0-100.0); Mean Platelet Volume 7.2 fL (7.0-11.0); Mono # (Auto) 0.6 th/mm3 (0.0-0.9); Mono % (Auto) 9.7 % (0.0-8.0); Neut # (Auto) 4.8 th/mm3 (1.8-7.7); Neut % (Auto) 79.2 % (16.0-70.0); Platelet Count 179 th/mm3 (150-450); Prothrombin Time 19.3 sec (9.8-11.6); Red Blood Count 4.34 mil/mm3 (4.50-5.90); Red Cell Distribution Width 16.5 % (11.6-17.2)
[2018-09-17 07:31] LABS: Calcium 8.6 mg/dL (8.5-10.1); Carbon Dioxide 31.8 meq/L (21.0-32.0); Potassium 4.1 meq/L (3.5-5.1)
--- NOTE | 2018-09-17 09:25 | P.PN ---
Subjective Interval history: Follow-up visit for GI bleed, supratherapeutic INR. Nurse reports 4 beat run of v-tach this morning, otherwise uneventful night. Patient is seen and examined resting in bed in no acute distress. Denies any chest pain, dizziness, lightheadedness, fevers, chills, N/V/D, cough or SOB. No further diarrhea reported, no bleeding reported per rectum or any other site. Physical Exam Vital signs: Vital Signs 09/16/18 14:00 09/16/18 15:43 09/16/18 20:07 Temperature 98 F 97.2 F L 98.4 F Pulse Rate 105 H 105 H 107 H Respiratory Rate 18 18 19 Blood Pressure 111/66 124/66 135/65 Pulse Oximetry 97 95 96 09/16/18 22:30 09/16/18 23:57 09/17/18 04:23 Temperature 97.4 F L 97.5 F L Pulse Rate 100 H 117 H Respiratory Rate 18 18 18 Blood Pressure 112/76 120/77 Pulse Oximetry 93 L 94 L 09/17/18 07:59 09/17/18 08:00 Temperature 98 F Pulse Rate 104 H 102 H Respiratory Rate 18 Blood Pressure 128/77 Pulse Oximetry 94 L Intake & Output 09/16/18 09/17/18 09/17/18 18:59 06:59 18:59 Intake Total 0 / 0 Output Total 1999 Balance -1999 / -1999 0 / 0 Weight 76.7 kg Intake: Oral 0 / 0 Output: Hemodialysis Amount 1999 Other: # Voids 0 Date of Last Bowel Movement 09/15/18 09/15/18 # Bowel Movements 0 0 Narrative: GENERAL: Well-developed, well-nourished male resting in bed in no acute distress. SKIN: Warm and dry. HEAD: Atraumatic. Normocephalic. EYES: Pupils equal and round. No scleral icterus. No injection or drainage. ENT: No nasal bleeding or discharge. Mucous membranes pink and moist. NECK: Trachea midline. CARDIOVASCULAR: Irregular rhythm with 2/6 murmur. Left upper extremity fistula with positive bruit and thrill. RESPIRATORY: No accessory muscle use. Clear to auscultation. Breath sounds equal bilaterally. GASTROINTESTINAL: Abdomen soft, non-tender, nondistended. + Bowel sounds MUSCULOSKELETAL: Extremities without clubbing, cyanosis, or edema. No obvious deformities. NEUROLOGICAL: Awake, alert, oriented x3. No obvious cranial nerve deficits. Motor grossly within normal limits. Normal speech. PSYCHIATRIC: Appropriate mood and affect; insight and judgment normal. Results - Labs CBC & Chem 7: 09/17/18 05:30 09/17/18 05:30 Laboratory Results - last 24 hr 09/16/18 09/16/18 09/16/18 08:50 14:57 14:57 WBC RBC Hgb Hct MCV MCH MCHC RDW Plt Count MPV Neut % (Auto) Lymph % (Auto) [place] % (Auto) Eos % (Auto) Baso % (Auto) Neut # (Auto) Lymph # (Auto) [place] # (Auto) Eos # (Auto) Baso # (Auto) WBC Differential Differential Comment Hematology Comments PT 53.1 H D 62.8 H INR 5.3 6.3 H* Sodium Potassium 4.0 Chloride Carbon Dioxide Anion Gap BUN Creatinine Estimated GFR POC Glucose Random Glucose Calcium 09/16/18 09/17/18 09/17/18 17:30 03:10 05:30 WBC 6.0 RBC 4.34 L Hgb 14.0 Hct 41.6 MCV 95.8 MCH 32.2 MCHC 33.6 RDW 16.5 Plt Count 179 MPV 7.2 Neut % (Auto) 79.2 H Lymph % (Auto) 6.8 L [place] % (Auto) 9.7 H Eos % (Auto) 3.5 Baso % (Auto) 0.8 Neut # (Auto) 4.8 Lymph # (Auto) 0.4 L [place] # (Auto) 0.6 Eos # (Auto) 0.2 Baso # (Auto) 0.1 WBC Differential . Differential Comment Auto diff final Hematology Comments PT INR Sodium Potassium Chloride Carbon Dioxide Anion Gap BUN Creatinine Estimated GFR POC Glucose 96 63 L Random Glucose Calcium 09/17/18 09/17/18 09/17/18 05:30 05:30 05:43 WBC RBC Hgb Hct MCV MCH MCHC RDW Plt Count MPV Neut % (Auto) Lymph % (Auto) [place] % (Auto) Eos % (Auto) Baso % (Auto) Neut # (Auto) Lymph # (Auto) [place] # (Auto) Eos # (Auto) Baso # (Auto) WBC Differential Differential Comment Hematology Comments PT 19.3 H D INR 1.9 Sodium 139 Potassium 4.1 Chloride 98 Carbon Dioxide 31.8 Anion Gap 9 BUN 26 H Creatinine 6.99 H Estimated GFR 8 L POC Glucose 85 Random Glucose 88 Calcium 8.6 Microbiology 09/15/18 10:20 Stool Stool for WBCs - Final Assessment and Plan - Assessment (1) End-stage renal disease on hemodialysis Code(s): N18.6 - End stage renal disease; Z99.2 - Dependence on renal dialysis Status: Acute (2) GI bleed Code(s): K92.2 - Gastrointestinal hemorrhage, unspecified Status: Acute (3) Afib Code(s): I48.91 - Unspecified atrial fibrillation Status: Acute - Plan This patient is a 63 y/o male with a dx of ESRD on MWF, a fib on coumadin, HTN, Last HD on Wednesday through left upper ext AVF. Patient says he has been having black stools for the past month but did not want to come to the hospital. Yesterday he had an episode of black diarrhea and decided to come into the ED for evaluation. He says he has also been feeling weak. In the ED he was found to be hypotensive. INR found to be supratherapeutic at 4.8. Supratherapeutic INR with likely Upper GI Bleed -INR improved to 2.2 after vit K and 1 unit ffp. -Coumadin restarted, INR jumped up to 6.3, hold Coumadin, s/p 5 mg of vitamin K , recheck INR this morning 1.9. -GI consulted, EGD done 09/13 -ulcer; biopsies taken. GI recommending no anticoagulation A. fib; risk of clot currently outweighs risk of bleed so anticoagulation was resumed. -Planned EUS today per GI, discussed with GI lab and nurse. - Discussed with nurse if no plans today for procedure, renal diet. Hypoglycemia -Required glucagon and D10 on 09/12 -Patient was worked up for similar before but is unable to give results other than "they think they gave me the wrong pills". -Blood sugar stable; may need endocrinology workup as outpatient -Hypoglycemic this afternoon with BS 56, likely 2/2 NPO status hypoglycemic protocol with improvement in BS. -Continue to monitor BS A. fib with RVR 4 beat run of V. tach -Continue digoxin and BB. -Anticoagulated on Coumadin, resume if no plans for endoscopy today. -Electrolytes checked and stable, no cardiac complaints, continue to monitor. Right foot heel ulcer -Stopped Bactrim which was prescribed at [facility] due to potential interaction with Coumadin. Patient to come complete p.o. clindamycin 09/17. -Wound healing well with no signs of infection. ESRD on HD -Hyperkalemia; improved with HD -Nephrology following. 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 - Noah 2 mutation negative in the past, recheck pending. Hematology suspects polycythemia is reactive, no treatment indicated. -Hematology has signed off with follow-up as outpatient in 4-6 weeks. Diarrhea, improving -C. difficile negative, continue to monitor. DVT prophylaxis: Coumadin. Discussed Condition With: Patient and RN
[2018-09-17 09:47] LABS: Magnesium 2.3 mg/dL (1.5-2.5); Phosphorus 4.1 mg/dL (2.5-4.9)
[2018-09-17] MEDS: Digoxin 125 MCG Tablet PO SCH (10:08)
[2018-09-17] MEDS: Citalopram 20 MG Tablet PO SCH (10:09)
[2018-09-17] MEDS: Metoprolol Tartrate 25 MG Tablet PO SCH ×2 (10:09→22:18)
[2018-09-17] MEDS: Dextrose 50% in Water 50 ML Vial IV.PUSH PRN (16:37)
--- NOTE | 2018-09-17 18:37 | P.PNNP ---
Subjective Interval history: no acute complaints Physical Exam Vital signs: Vital Signs 09/16/18 20:07 09/16/18 22:30 09/16/18 23:57 Temperature 98.4 F 97.4 F L Pulse Rate 107 H 100 H Respiratory Rate 19 18 18 Blood Pressure 135/65 112/76 Pulse Oximetry 96 93 L 09/17/18 04:23 09/17/18 07:59 09/17/18 08:00 Temperature 97.5 F L 98 F Pulse Rate 117 H 104 H 102 H Respiratory Rate 18 18 Blood Pressure 120/77 128/77 Pulse Oximetry 94 L 94 L 09/17/18 12:00 09/17/18 15:55 09/17/18 16:00 Temperature 97.4 F L 98 F Pulse Rate 95 H 76 97 H Respiratory Rate 20 20 Blood Pressure 116/68 129/78 Pulse Oximetry 96 97 Intake & Output 09/16/18 09/17/18 09/17/18 18:59 06:59 18:59 Intake Total 0 / 0 Output Total 1999 100 / 100 Balance -1999 0 / 0 -100 / -100 Weight 76.7 kg Intake: Oral 0 / 0 Output: Emesis 100 / 100 Hemodialysis Amount 1999 Other: # Voids 0 Date of Last Bowel Movement 09/15/18 09/15/18 # Bowel Movements 0 0 1 - Constitutional no acute distress - Routine HEENT Exam Head: Present: normocephalic Eye: Present: EOMI ENT: Present: mucous membranes moist - Routine Neck Exam Present: supple - Routine Respiratory Exam Present: decreased breath sounds - Routine Cardiovascular Exam Present: RRR - Routine Abdominal Exam Present: soft - Routine Extremities Exam Present: vascular access - Routine Skin Exam Present: intact - Routine Neurological Exam Present: alert - Detailed Neurological Exam: Coma Scale Eye Opening: Spontaneous - Routine Psychiatric Exam Present: normal affect Assessment and Plan - Assessment (1) End-stage renal disease on hemodialysis Code(s): N18.6 - End stage renal disease; Z99.2 - Dependence on renal dialysis Status: Acute Plan: ESRD MWF Volume status, electrolytes stable. Given holiday schedule, plan for HD tomorrow, then on Wednesday. Monitor fluid and electrolytes. Avoid nephrotoxic agents. Avoid BP measurements or blood draws in L arm, AVF. (2) GI bleed Code(s): K92.2 - Gastrointestinal hemorrhage, unspecified Status: Acute Plan: s/p EGD, results reviewed. GI on the case. Hematology consulted and ordered workup for polycythemia, possible reactive etiology (3) Afib Code(s): I48.91 - Unspecified atrial fibrillation Status: Acute Plan: On metoprolol. Patient restarted on Coumadin.
[2018-09-18] MEDS: Pantoprazole Inj 40 MG Vial IV.PUSH SCH ×2 (05:16→17:51)
[2018-09-18 08:42] LABS: INR 1.5 Ratio; Prothrombin Time 14.8 sec (9.8-11.6)
--- NOTE | 2018-09-18 09:09 | P.PN ---
Subjective Interval history: Follow-up visit for GI bleed. Patient seen and examined resting in bed and in no acute distress. Reports 2 episodes of emesis yesterday, states he vomited "frothy". Denies any fevers, chills, abdominal pain, black or bloody stools, shortness of breath or chest pain. Physical Exam Vital signs: Vital Signs 09/17/18 12:00 09/17/18 15:55 09/17/18 16:00 Temperature 97.4 F L 98 F Pulse Rate 95 H 76 97 H Respiratory Rate 20 20 Blood Pressure 116/68 129/78 Pulse Oximetry 96 97 09/17/18 20:00 09/17/18 23:46 09/18/18 00:00 Temperature 97.7 F 97.4 F L Pulse Rate 96 H 86 84 Respiratory Rate 18 18 Blood Pressure 117/76 102/70 Pulse Oximetry 94 L 93 L 09/18/18 04:11 09/18/18 04:40 Temperature 97.4 F L Pulse Rate 97 H 94 H Respiratory Rate 18 Blood Pressure 110/74 Pulse Oximetry 96 Intake & Output 09/17/18 09/18/18 09/18/18 18:59 06:59 18:59 Intake Total 0 / 0 Output Total 100 / 100 Balance -100 / -100 0 / 0 Weight 75.3 kg Intake: Oral 0 / 0 Output: Emesis 100 / 100 Other: # Voids 1 Date of Last Bowel Movement 09/17/18 # Bowel Movements 1 0 Narrative: GENERAL: Well-developed, well-nourished male resting in bed in no acute distress. SKIN: Warm and dry. HEAD: Atraumatic. Normocephalic. EYES: Pupils equal and round. No scleral icterus. No injection or drainage. ENT: No nasal bleeding or discharge. Mucous membranes pink and moist. NECK: Trachea midline. CARDIOVASCULAR: Irregular rhythm with 2/6 murmur. Left upper extremity fistula with positive bruit and thrill. RESPIRATORY: No accessory muscle use. Clear to auscultation. Breath sounds equal bilaterally. GASTROINTESTINAL: Abdomen soft, non-tender, nondistended. + Bowel sounds MUSCULOSKELETAL: Extremities without clubbing, cyanosis, or edema. No obvious deformities. NEUROLOGICAL: Awake, alert, oriented x3. No obvious cranial nerve deficits. Motor grossly within normal limits. Normal speech. PSYCHIATRIC: Appropriate mood and affect; insight and judgment normal. Results - Labs CBC & Chem 7: 09/17/18 05:30 09/17/18 05:30 Laboratory Results - last 24 hr 09/17/18 09/17/18 09/17/18 05:30 11:44 16:22 PT INR POC Glucose 87 56 L Phosphorus 4.1 Magnesium 2.3 09/17/18 09/17/18 09/18/18 16:51 22:11 02:48 PT INR POC Glucose 169 H 71 81 Phosphorus Magnesium 09/18/18 09/18/18 08:15 08:46 PT 14.8 H INR 1.5 POC Glucose 83 Phosphorus Magnesium Assessment and Plan - Assessment (1) End-stage renal disease on hemodialysis Code(s): N18.6 - End stage renal disease; Z99.2 - Dependence on renal dialysis Status: Acute (2) GI bleed Code(s): K92.2 - Gastrointestinal hemorrhage, unspecified Status: Acute (3) Afib Code(s): I48.91 - Unspecified atrial fibrillation Status: Acute - Plan This patient is a 63 y/o male with a dx of ESRD on MWF, a fib on coumadin, HTN, Last HD on Wednesday through left upper ext AVF. Patient says he has been having black stools for the past month but did not want to come to the hospital. Yesterday he had an episode of black diarrhea and decided to come into the ED for evaluation. He says he has also been feeling weak. In the ED he was found to be hypotensive. INR found to be supratherapeutic at 4.8. Supratherapeutic INR with likely Upper GI Bleed -INR improved to 2.2 after vit K and 1 unit ffp. -Coumadin restarted, INR jumped up to 6.3, hold Coumadin, s/p 5 mg of vitamin K , recheck INR this morning 1.9. -GI consulted, EGD done 09/13 -ulcer; biopsies taken. GI recommending no anticoagulation A. fib; risk of clot currently outweighs risk of bleed so anticoagulation was resumed. -EUS by GI tomorrow, n.p.o. after midnight, hold Coumadin. Hypoglycemia -Recurrent since yesterday secondary to n.p.o. status. -Patient was worked up for similar before but is unable to give results other than "they think they gave me the wrong pills". -Blood sugar stable; may need endocrinology workup as outpatient -Provided with D50, diet restarted, will be n.p.o. after midnight, will provide D5 NS at low rate to prevent recurrent hypoglycemia. A. fib with RVR 4 beat run of V. tach -Continue digoxin and BB. -Anticoagulated on Coumadin, resume if no plans for endoscopy today. -Electrolytes checked and stable, no cardiac complaints, continue to monitor. Right foot heel ulcer -Stopped Bactrim which was prescribed at [facility] due to potential interaction with Coumadin. Completed p.o. clindamycin 09/17. -Wound healing well with no signs of infection. ESRD on HD -Hyperkalemia; improved with HD -Nephrology following. 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 - Noah 2 mutation negative in the past, recheck pending. Hematology suspects polycythemia is reactive, no treatment indicated. -Hematology has signed off with follow-up as outpatient in 4-6 weeks. Diarrhea, improving -C. difficile negative, no further diarrhea reported. DVT prophylaxis: Coumadin. Discussed Condition With: Patient, RN and GI Discharge Planning: Need GI clearance after scope tomorrow.
[2018-09-18] MEDS: Metoprolol Tartrate 25 MG Tablet PO SCH ×2 (09:45→20:00)
[2018-09-18] MEDS: Dextrose 50% in Water 50 ML Vial IV.PUSH PRN ×2 (11:37→16:21)
[2018-09-18] MEDS: Digoxin 125 MCG Tablet PO SCH (12:18)
[2018-09-18] MEDS: Citalopram 20 MG Tablet PO SCH (12:18)
--- NOTE | 2018-09-18 12:21 | P.PNGI ---
Subjective Interval history: Pt is resting in bed, upset due to NPO status. Denies any GI issues <Jaylon De La Rosa - Last Filed: 09/18/18 12:17> Physical Exam Vital signs: Vital Signs 09/17/18 15:55 09/17/18 16:00 09/17/18 20:00 Temperature 98 F 97.7 F Pulse Rate 76 97 H 96 H Respiratory Rate 20 18 Blood Pressure 129/78 117/76 Pulse Oximetry 97 94 L 09/17/18 23:46 09/18/18 00:00 09/18/18 04:11 Temperature 97.4 F L 97.4 F L Pulse Rate 86 84 97 H Respiratory Rate 18 18 Blood Pressure 102/70 110/74 Pulse Oximetry 93 L 96 09/18/18 04:40 09/18/18 08:00 Temperature 97.6 F Pulse Rate 94 H 94 H Respiratory Rate 18 Blood Pressure 125/91 H Pulse Oximetry 92 L Intake & Output 09/17/18 09/18/18 09/18/18 18:59 06:59 18:59 Intake Total 0 / 0 Output Total 100 / 100 Balance -100 / -100 0 / 0 Weight 75.3 kg Intake: Oral 0 / 0 Output: Emesis 100 / 100 Other: # Voids 1 Date of Last Bowel Movement 09/17/18 # Bowel Movements 1 0 Narrative: GENERAL: Well-developed, well-nourished male resting in bed in no acute distress. SKIN: Warm and dry. NECK: Trachea midline. CARDIOVASCULAR: Irregular rhythm RESPIRATORY: No accessory muscle use. Clear to auscultation. Breath sounds equal bilaterally. GASTROINTESTINAL: Abdomen soft, non-tender, nondistended. + Bowel sounds MUSCULOSKELETAL: Extremities without clubbing, cyanosis, or edema. No obvious deformities. NEUROLOGICAL: Awake, alert, oriented x3. PSYCHIATRIC: Appropriate mood and affect; insight and judgment normal. <RjElijahsj - Last Filed: 09/18/18 12:17> Vital signs: Vital Signs 09/17/18 15:55 09/17/18 16:00 09/17/18 20:00 Temperature 98 F 97.7 F Pulse Rate 76 97 H 96 H Respiratory Rate 20 18 Blood Pressure 129/78 117/76 Pulse Oximetry 97 94 L 09/17/18 23:46 09/18/18 00:00 09/18/18 04:11 Temperature 97.4 F L 97.4 F L Pulse Rate 86 84 97 H Respiratory Rate 18 18 Blood Pressure 102/70 110/74 Pulse Oximetry 93 L 96 09/18/18 04:40 09/18/18 08:00 09/18/18 12:00 Temperature 97.6 F 97.8 F Pulse Rate 94 H 94 H 84 Respiratory Rate 18 18 Blood Pressure 125/91 H 130/77 Pulse Oximetry 92 L 94 L Intake & Output 09/17/18 09/18/18 09/18/18 18:59 06:59 18:59 Intake Total 0 / 0 Output Total 100 / 100 Balance -100 / -100 0 / 0 Weight 75.3 kg Intake: Oral 0 / 0 Output: Emesis 100 / 100 Other: # Voids 1 Date of Last Bowel Movement 09/17/18 # Bowel Movements 1 0 <Abebe Houston - Last Filed: 09/18/18 14:05> Results - Labs CBC & Chem 7: 09/17/18 05:30 09/17/18 05:30 Laboratory Results - last 24 hr 09/17/18 09/17/18 09/17/18 16:22 16:51 22:11 PT INR POC Glucose 56 L 169 H 71 09/18/18 09/18/18 09/18/18 02:48 08:15 08:46 PT 14.8 H INR 1.5 POC Glucose 81 83 09/18/18 09/18/18 11:32 11:45 PT INR POC Glucose 54 L 150 H <Jaylon De La Rosa - Last Filed: 09/18/18 12:17> - Labs CBC & Chem 7: 09/17/18 05:30 09/17/18 05:30 Laboratory Results - last 24 hr 09/17/18 09/17/18 09/17/18 16:22 16:51 22:11 PT INR POC Glucose 56 L 169 H 71 09/18/18 09/18/18 09/18/18 02:48 08:15 08:46 PT 14.8 H INR 1.5 POC Glucose 81 83 09/18/18 09/18/18 11:32 11:45 PT INR POC Glucose 54 L 150 H <Abebe Houston - Last Filed: 09/18/18 14:05> Assessment and Plan (1) GI bleed Status: Acute Code(s): K92.2 - Gastrointestinal hemorrhage, unspecified - Plan This patient is a 63-year-old male with past medical history significant for end-stage renal disease on hemodialysis, atrial fibrillation and hypertension. Past surgical history significant for metal removed from back, and left upper extremity AV fistula. Patient states hemodialysis treatments are every Wednesday and Wednesday. Patient was sent to [facility] from a intermediate facility with reported black stools onset 1 month ago. Patient states he has been experiencing generalized weakness and has noted no abdominal pain fevers or chills. Patient denies any chest pain or shortness of breath. Denies nausea or vomiting. Patient currently on Coumadin for atrial fibrillation. Upon admission, INR found to be supra therapeutic at 4.8. Patient states last EGD done in December 2017 revealed gastric ulcer. Our service has been consulted to evaluate patient for GI bleeding. GI bleed INR 4.8 History of gastric ulcer Patient endorses black stools times 1 month. Patient with known ulcer disease diagnosed in December 2017. Denies any hematemesis. Currently on Coumadin for atrial fibrillation with INR 4.8. -WBC 6.1 hemoglobin 16.3 hematocrit 47.3 platelet count 172 -BUN 68 creatinine 9.1 GFR 6 calcium 5.9 total bilirubin 0.4 AST 21 ALT 23 alk phos 89 albumin 1.9 09/12/2018 Patient denies any noted bleeding Denies hematemesis or abdominal pain States he is hungry Currently receiving hemodialysis WBC 5.9 hemoglobin 15.1 hematocrit 45.0 INR 2.2 09/14/2018 Patient reports multiple stools overnight. C. difficile toxin negative, will repeat same and include additional stool studies. 09/13/2018 EGD revealed the following-- Esophagus: Z line seen at 40 cm, it had a regular smooth appearance. The esophageal mucosa was normal. Stomach: Direct and retroflex views were obtained. There were a few 5 mm gastric polyps seen in the body of the stomach, one was biopsied. The antrum had moderate erythema with edema and friability. Biopsy was obtained. No ulcers or erosions seen. Retroflex showed a normal cardia. Duodenum: The bulb revealed erythema and inflammation, the area was biopsied. No ulcer or erosions. In the second portion the ampulla was seen to be enlarged , edematous and erythematous with what appeared to be a central ulcer where the os should be. The ampulla was biopsied. (09/13) Hemoglobin 14.6 hematocrit 42.5 09/15/2018 Patient denies diarrhea, abdominal pain or nausea vomiting. EGD findings as noted above Surgical specimen pathology reveal the following findings-- AMPULLA, BIOPSY: DUODENAL MUCOSA WITH GRANULATION TISSUE FORMATION AND DETACHED ATYPICAL EPITHELIUM. DUODENUM, BIOPSY: DUODENAL MUCOSA WITH PEPTIC DUODENITIS. GASTRIC ANTRUM, BIOPSY: ANTRAL MUCOSA WITH REACTIVE GASTROPATHY, MAY BE SEEN WITH BILE REFLUX OR DRUG THERAPY. GASTRIC BODY, BIOPSY: GASTRIC MUCOSA WITH MILD ACTIVE CHRONIC GASTRITIS. 09/18/18 Pt denies any gi issues. EUS scheduled tomorrow, discussed with hepas RN NIGHT cont to hold Coumadin, may resume diet today, npo mn Stools negative for C-diff Plan -Renal diet -N.p.o. after midnight - EUS tomorrow -granulation tissue formation and detached atypical epithelium- ampulla -Monitor hemoglobin hematocrit -Monitor for bleeding -PPI -Supportive care -Avoid NSAIDs -Further recommendations to follow This patient has been seen by myself and and this note is written on his behalf <Jaylon De La Rosa - Last Filed: 09/18/18 12:17> (1) GI bleed Status: Acute Code(s): K92.2 - Gastrointestinal hemorrhage, unspecified - Attending Attestation I have seen and examined the patient and reviewed the patients care with the RN MATERNITY. I agree with the above assessment and recommendations as documented above. <Abebe Houston - Last Filed: 09/18/18 14:05>
--- NOTE | 2018-09-18 14:39 | P.PNNP ---
Subjective Interval history: No acute complaints, seen on dialysis Physical Exam Vital signs: Vital Signs 09/17/18 15:55 09/17/18 16:00 09/17/18 20:00 Temperature 98 F 97.7 F Pulse Rate 76 97 H 96 H Respiratory Rate 20 18 Blood Pressure 129/78 117/76 Pulse Oximetry 97 94 L 09/17/18 23:46 09/18/18 00:00 09/18/18 04:11 Temperature 97.4 F L 97.4 F L Pulse Rate 86 84 97 H Respiratory Rate 18 18 Blood Pressure 102/70 110/74 Pulse Oximetry 93 L 96 09/18/18 04:40 09/18/18 08:00 09/18/18 12:00 Temperature 97.6 F 97.8 F Pulse Rate 94 H 94 H 84 Respiratory Rate 18 18 Blood Pressure 125/91 H 130/77 Pulse Oximetry 92 L 94 L Intake & Output 09/17/18 09/18/18 09/18/18 18:59 06:59 18:59 Intake Total 0 / 0 Output Total 100 / 100 Balance -100 / -100 0 / 0 Weight 75.3 kg Intake: Oral 0 / 0 Output: Emesis 100 / 100 Other: # Voids 1 Date of Last Bowel Movement 09/17/18 # Bowel Movements 1 0 - Constitutional no acute distress - Routine HEENT Exam Head: Present: normocephalic Eye: Present: EOMI ENT: Present: mucous membranes moist - Routine Neck Exam Present: supple - Routine Respiratory Exam Present: decreased breath sounds - Routine Cardiovascular Exam Present: RRR - Routine Abdominal Exam Present: soft - Routine Skin Exam Present: intact - Routine Neurological Exam Present: alert - Detailed Neurological Exam: Coma Scale Eye Opening: Spontaneous - Routine Psychiatric Exam Present: normal affect Assessment and Plan - Assessment (1) End-stage renal disease on hemodialysis Code(s): N18.6 - End stage renal disease; Z99.2 - Dependence on renal dialysis Status: Acute Plan: ESRD MWF Volume status, electrolytes stable. Given holiday schedule, plan for HD today, then on Wednesday. Seen on HD and tolerating HD well. Monitor fluid and electrolytes. Avoid nephrotoxic agents. Avoid BP measurements or blood draws in L arm, AVF. (2) GI bleed Code(s): K92.2 - Gastrointestinal hemorrhage, unspecified Status: Acute Plan: s/p EGD, results reviewed. GI on the case. Planned endoscopic ultrasound tomorrow Hematology consulted and ordered workup for polycythemia, possible reactive etiology (3) Afib Code(s): I48.91 - Unspecified atrial fibrillation Status: Acute Plan: On metoprolol. Patient restarted on Coumadin.
[2018-09-18] MEDS: Gelatin 12 MM/7 MM Topical Foam TOPICAL PRN (16:25)
[2018-09-19] MEDS ORDERED: Dextrose 5%/NaCl 0.9% Inj 1,000 ML IV.CONT SCH
[2018-09-19] MEDS ORDERED: Dextrose 10% in Water Inj 1,000 ML IV.CONT SCH
[2018-09-19] MEDS: Pantoprazole Inj 40 MG Vial IV.PUSH SCH ×2 (04:04→16:58)
[2018-09-19 05:41] LABS: INR 1.4 Ratio; Prothrombin Time 14.1 sec (9.8-11.6)
--- NOTE | 2018-09-19 11:37 | P.PCN ---
Date of procedure: 09/19/18 Pre-op diagnosis: Abnormal ampulla on recent endoscopy Procedure: PROCEDURE PERFORMED EUS followed by an ERCP with sphincterotomy and balloon extraction and stent placement and biopsy PROCEDURE: The procedure, risks and benefits were discussed with Patient/POA and informed consent was obtained. Anesthesia sedated Patient with Diprivan. Patient was placed in the left lateral decubitus position. EUS: The Pentax videoscope was introduced through the oropharynx and advanced to the second portion of the duodenum under direct visualization. FINDINGS: The ampulla appeared to be homogeneous mildly hypoechoic enlarged measuring at about 1 x 1 cm also noted was a mildly dilated common bile duct with multiple filling defects also noted a mildly to moderately dilated pancreatic duct from the head to the tail but otherwise regular and no filling defects the pancreatic parenchyma appeared to be homogeneous mildly hyperechoic with no irregularities no lumps and no masses and no cysts Gallbladder had multiple stones No lymphadenopathy was seen ERCP: Patient was placed in a prone position. The Pentax videoscope was introduced through the oropharynx and advanced to the second portion of the duodenum where the ampula was identified. FINDINGS: The ampulla appeared to be edematous erythematous with an ulceration this is suggestive of biliary ampullary fistulization with probably a passage of stone we were able to obtain cannulation of the common bile duct there were multiple filling defects noted within the bile duct using an 8 mm balloon we were able to extract the filling defects the patient was noted to have numerous stones within the gallbladder and so a 10 Yoruba 9 cm stent was placed with good flow noted from the stent and biopsies were taken from the ampulla to further evaluate and verify and to rule out possible underlying malignancy the intrahepatics were unremarkable ESTIMATED BLOOD LOSS: Minimal SPECIMENS REMOVED: Ampullary biopsy COMPLICATIONS: None IMPRESSION: Choledocholithiasis Cholelithiasis Ulcerated fistulized ampulla PLAN: Await biopsies Recommend cholecystectomy will defer to attending physician for surgical consult Will monitor labs and advance diet to a clear liquid diet at this point Patient will need an ERCP in 3 months to remove the stent Follow-up with GI in 3-4 weeks Anesthesia: GETA Surgeon: Clement Patel (Clinical Research Scientist Dr. Houston who performed the ERCP) Condition: stable Disposition: floor
--- NOTE | 2018-09-19 11:46 | FL ---
EXAM DATE: 09/19/2018 11:41 AM EST AGE/SEX: 63 years / Male INDICATIONS: ERCP. CLINICAL DATA: This is the patient's initial encounter. Patient reports that signs and symptoms have been present for 1 day and indicates a pain score of Nonresponsive. MEDICAL/SURGICAL HISTORY: Non-responsive. Non-responsive. COMPARISON: No prior exams available for comparison. FLUORO TIME: 4.61 IMAGE COUNT: 4 RADIATION DOSE: 74.8 mGy DAP FINDINGS: An ERCP was performed by the ordering physician. The images demonstrate multiple filling defects in the gallbladder characteristic of gallstones. Common bile duct is mildly dilated. There are some fill ing defects in the common bile duct. On the final film an internal biliary stent has been placed. The internal biliary stent appears to be in good position. CONCLUSION: Status post placement of an internal biliary stent. Electronically signed by: Fabian Sosa MD Board Certified Radiologist 09/19/2018 11:44 AM EST
[2018-09-19] MEDS ORDERED: Iohexol 350 MG/ML 50 ML Vial (for Rad Diag) PO ONE ×2 (12:07→12:09)
[2018-09-19] MEDS: Digoxin 125 MCG Tablet PO SCH (12:40)
[2018-09-19] MEDS: Citalopram 20 MG Tablet PO SCH (12:40)
[2018-09-19] MEDS: Metoprolol Tartrate 25 MG Tablet PO SCH ×2 (12:41→20:27)
--- NOTE | 2018-09-19 13:09 | P.PNNP ---
Subjective Interval history: Patient was seen s/p ERCP with sphincterotomy and balloon extraction and stent placement and biopsy. Possible cholecystectomy pending general surgery consult. Patient normally gets dialysis MWF. Due to holiday schedule patient was dialyzed yesterday and will resume dialysis on Wednesday. <Lidia Gleason - Last Filed: 09/19/18 13:01> Physical Exam Vital signs: Vital Signs 09/18/18 19:28 09/18/18 19:53 09/19/18 00:02 Temperature 98.1 F Pulse Rate 81 88 92 H Respiratory Rate 18 Blood Pressure 104/57 L Pulse Oximetry 95 09/19/18 00:21 09/19/18 03:35 09/19/18 07:00 Temperature 97.7 F 97.9 F Pulse Rate 86 96 H 88 Respiratory Rate 18 18 Blood Pressure 118/83 115/69 Pulse Oximetry 95 94 L 09/19/18 08:30 Temperature 97.5 F L Pulse Rate 92 H Respiratory Rate 17 Blood Pressure 130/76 Pulse Oximetry 95 Intake & Output 09/18/18 09/19/18 09/19/18 18:59 06:59 18:59 Intake Total 240 / 240 0 / 0 700 / 700 Output Total 0 / 0 Balance 240 / 240 0 / 0 700 / 700 Weight 75.8 kg Intake: Oral 240 / 240 0 / 0 Anesthesia Amount 700 / 700 Output: Urine 0 / 0 Stool 0 / 0 Other: # Voids 0 Date of Last Bowel Movement 09/17/18 09/18/18 09/18/18 # Bowel Movements 1 Narrative: GENERAL:Resting in bed in no acute distress. SKIN: Warm and dry. HEAD: Atraumatic. Normocephalic. NECK: Trachea midline. CARDIOVASCULAR: Irregular rhythm with murmur. Left upper extremity fistula. RESPIRATORY: No accessory muscle use. Clear to auscultation. GASTROINTESTINAL: Abdomen soft, non-tender, nondistended. MUSCULOSKELETAL: Extremities without clubbing, cyanosis, or edema. N NEUROLOGICAL: Awake, alert, oriented x3. No obvious cranial nerve deficits. PSYCHIATRIC: Appropriate mood and affect.. <Lidia Gleason - Last Filed: 09/19/18 13:01> Vital signs: Vital Signs 09/19/18 08:30 09/19/18 11:41 09/19/18 12:00 Temperature 97.5 F L 97.8 F Pulse Rate 92 H 108 H 95 H Respiratory Rate 17 15 15 Blood Pressure 130/76 142/86 H 120/88 Pulse Oximetry 95 98 93 L 09/19/18 12:10 09/19/18 12:37 09/19/18 15:21 Temperature 97.8 F 97.1 F L 97.6 F Pulse Rate 90 92 H 97 H Respiratory Rate 16 17 18 Blood Pressure 124/75 121/59 L 132/79 Pulse Oximetry 94 L 96 95 09/19/18 20:00 09/19/18 20:05 09/19/18 23:43 Temperature 97.5 F L 97.6 F Pulse Rate 70 80 89 Respiratory Rate 18 19 Blood Pressure 134/70 148/87 H Pulse Oximetry 94 L 96 09/20/18 00:01 09/20/18 04:00 Temperature 97.8 F Pulse Rate 76 75 Respiratory Rate 18 Blood Pressure 130/66 Pulse Oximetry 96 Intake & Output 09/19/18 09/20/18 09/20/18 18:59 06:59 18:59 Intake Total 940 / 940 360 / 360 Output Total 0 / 0 Balance 940 / 940 360 / 360 Weight 75.8 kg Intake: Oral 240 / 240 360 / 360 Anesthesia Amount 700 / 700 Output: Urine 0 / 0 Other: Post Void Residual 0 # Voids 0 # Incontinent Voids 0 # Urine Diapers 0 Date of Last Bowel Movement 09/18/18 09/18/18 # Bowel Movements 0 <Varun Chisholm - Last Filed: 09/20/18 07:58> Assessment and Plan - Assessment (1) End-stage renal disease on hemodialysis Code(s): N18.6 - End stage renal disease; Z99.2 - Dependence on renal dialysis Status: Acute Plan: ESRD MWF Patient normally gets dialysis MWF. Due to holiday schedule patient was dialyzed yesterday and will resume dialysis on Wednesday. Monitor fluid and electrolytes. Avoid nephrotoxic agents. Monitor phosphorus intermittently, patient is on a binder. Avoid BP measurements or blood draws in L arm, AVF. (2) GI bleed Code(s): K92.2 - Gastrointestinal hemorrhage, unspecified Status: Acute Plan: s/p EGD, results reviewed. GI on the case. Patient had endoscopic ultrasound today then had ERCP with sphincterotomy and balloon extraction and stent placement and biopsy. Possible cholecystectomy pending general surgery consult. Patient on clear liquid diet. Hematology consulted and ordered workup for polycythemia, possible reactive etiology. (3) Afib Code(s): I48.91 - Unspecified atrial fibrillation Status: Acute Plan: On metoprolol. Patient restarted on Coumadin. <Lidia Gleason - Last Filed: 09/19/18 13:01> - Assessment (1) End-stage renal disease on hemodialysis Code(s): N18.6 - End stage renal disease; Z99.2 - Dependence on renal dialysis Status: Acute (2) GI bleed Code(s): K92.2 - Gastrointestinal hemorrhage, unspecified Status: Acute (3) Afib Code(s): I48.91 - Unspecified atrial fibrillation Status: Acute - Attending Attestation patient was seen and examined. Events noted. Seen by surgery. Possible cholecystectomy. Cleared for surgery from renal standpoint. <Varun Chisholm - Last Filed: 09/20/18 07:58>
--- NOTE | 2018-09-19 16:17 | P.PN ---
Subjective Interval history: Follow-up visit for nausea, vomiting abdominal pain and GI bleed. Patient is seen and examined resting in bed comfortably after ERCP procedure with stent placement. He is requesting something to eat. Denies any nausea, vomiting, abdominal pain, black or bloody stools. Patient also denies any further diarrhea, states he has not had a bowel movement for 2 days. Patient is also requesting to go home. Physical Exam Vital signs: Vital Signs 09/18/18 19:28 09/18/18 19:53 09/19/18 00:02 Temperature 98.1 F Pulse Rate 81 88 92 H Respiratory Rate 18 Blood Pressure 104/57 L Pulse Oximetry 95 09/19/18 00:21 09/19/18 03:35 09/19/18 07:00 Temperature 97.7 F 97.9 F Pulse Rate 86 96 H 88 Respiratory Rate 18 18 Blood Pressure 118/83 115/69 Pulse Oximetry 95 94 L 09/19/18 08:30 09/19/18 11:41 09/19/18 12:00 Temperature 97.5 F L 97.8 F Pulse Rate 92 H 108 H 95 H Respiratory Rate 17 15 15 Blood Pressure 130/76 142/86 H 120/88 Pulse Oximetry 95 98 93 L 09/19/18 12:10 09/19/18 12:37 Temperature 97.8 F 97.1 F L Pulse Rate 90 92 H Respiratory Rate 16 17 Blood Pressure 124/75 121/59 L Pulse Oximetry 94 L 96 Intake & Output 09/18/18 09/19/18 09/19/18 18:59 06:59 18:59 Intake Total 240 / 240 0 / 0 700 / 700 Output Total 1999 Balance -1760 / -1760 0 / 0 700 / 700 Weight 75.8 kg Intake: Oral 240 / 240 0 / 0 Anesthesia Amount 700 / 700 Output: Urine 0 / 0 Stool 0 / 0 Hemodialysis Amount 1999 Other: # Voids 0 Date of Last Bowel Movement 09/17/18 09/18/18 09/18/18 # Bowel Movements 1 Narrative: GENERAL: Well-developed, well-nourished male resting in bed in no acute distress. SKIN: Warm and dry. Bilateral lower extremity small scratches and scabs in various stages of healing, do not appear infected. HEAD: Atraumatic. Normocephalic. EYES: Pupils equal and round. No scleral icterus. No injection or drainage. ENT: No nasal bleeding or discharge. Mucous membranes pink and moist. NECK: Trachea midline. CARDIOVASCULAR: Irregular rhythm with 2/6 murmur. Left upper extremity fistula with positive bruit and thrill. RESPIRATORY: No accessory muscle use. Clear to auscultation. Breath sounds equal bilaterally. GASTROINTESTINAL: Abdomen soft, non-tender, nondistended. + Bowel sounds MUSCULOSKELETAL: Extremities without clubbing, cyanosis, or edema. No obvious deformities. NEUROLOGICAL: Awake, alert, oriented x3. No obvious cranial nerve deficits. Motor grossly within normal limits. Normal speech. PSYCHIATRIC: Appropriate mood and affect; insight and judgment normal. Results - Labs CBC & Chem 7: 09/17/18 05:30 09/17/18 05:30 Laboratory Results - last 24 hr 09/13/18 09/18/18 09/18/18 05:10 15:59 16:19 PT INR POC Glucose 61 L 66 L JAK2 Mutation (PCR) BCR/abl (FISH) Interp 09/18/18 09/19/18 09/19/18 16:39 00:15 03:58 PT 14.1 H INR 1.4 POC Glucose 133 H 112 H JAK2 Mutation (PCR) BCR/abl (FISH) Interp 09/19/18 09/19/18 06:03 12:13 PT INR POC Glucose 93 106 JAK2 Mutation (PCR) BCR/abl (FISH) Interp - Imaging Impressions GI Procedure 09/19/18 00:00 CONCLUSION: Status post placement of an internal biliary stent. Assessment and Plan - Assessment (1) End-stage renal disease on hemodialysis Code(s): N18.6 - End stage renal disease; Z99.2 - Dependence on renal dialysis Status: Acute (2) GI bleed Code(s): K92.2 - Gastrointestinal hemorrhage, unspecified Status: Acute (3) Afib Code(s): I48.91 - Unspecified atrial fibrillation Status: Acute - Plan This patient is a 63 y/o male with a dx of ESRD on MWF, a fib on coumadin, HTN, Last HD on Wednesday through left upper ext AVF. Patient says he has been having black stools for the past month but did not want to come to the hospital. Yesterday he had an episode of black diarrhea and decided to come into the ED for evaluation. He says he has also been feeling weak. In the ED he was found to be hypotensive. INR found to be supratherapeutic at 4.8. Supratherapeutic INR with likely Upper GI Bleed -INR improved to 2.2 after vit K and 1 unit ffp. -Coumadin restarted, INR jumped up to 6.3, hold Coumadin, s/p 5 mg of vitamin K , recheck INR this morning 1.9. -GI consulted, EGD done 09/13 -ulcer; biopsies taken. GI recommending no anticoagulation A. fib; risk of clot currently outweighs risk of bleed so anticoagulation was resumed. -s/p EUS and ERCP 09/19 status post placement of internal biliary stent. Biopsies taken with recommendations for cholecystectomy, diet advanced to clear liquids, will need ERCP in 3 months to remove stent, follow-up with GI and 34 weeks. -General surgery consult place for cholecystectomy evaluation. Hypoglycemia -Recurrent secondary to n.p.o. status per -Patient with a history of ongoing hypoglycemia; may need endocrinology workup as outpatient - D10W at midnight when NPO A. fib with RVR 4 beat run of V. tach -Continue digoxin and BB. -Anticoagulated on Coumadin, continue to hold for GS eval and possible surgical intervention. -Electrolytes checked and stable, no cardiac complaints, continue to monitor. Right foot heel ulcer -Stopped Bactrim which was prescribed at [facility] due to potential interaction with Coumadin. Completed p.o. clindamycin 09/17. -Wound healing well with no signs of infection. ESRD on HD -Hyperkalemia; improved with HD -Nephrology following. 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 - Noah 2 mutation negative in the past, recheck pending. Hematology suspects polycythemia is reactive, no treatment indicated. -Hematology has signed off with follow-up as outpatient in 4-6 weeks. Diarrhea, improving -C. difficile negative, no further diarrhea reported. DVT prophylaxis: Coumadin. Discussed Condition With: Patient and educational therapist Planning: Need GI clearance after scope tomorrow.
--- NOTE | 2018-09-19 17:28 | P.CONGS ---
[facility] Gen Surgery Consult Note Consult date: 09/19/18 Narrative: 63 yo M from assisted living facility with h/o atrial fibrillation and ESRD on HD presented with GI bleed. EGD on 09/13 showed abnormal appearing ampulla. ERCP on 09/19/18 showed multiple filling defects in common duct and stent was placed. There is also a questionable fistula present. The patient states that prior to admission he had slightly decreased appetite but otherwise was doing well except for multiple stools. He currently denies abdominal pain, n, v. No previous abdominal surgeries. Review of Systems All other systems reviewed negative except as stated in [facility] - History History Provided By: Patient - Medical History Medical History: Medical History (Last Reviewed 09/16/18 @ 15:12 by Jackie Steel) Afib CVA (cerebral vascular accident) HTN (hypertension) - Tobacco History Second Hand Smoke Exposure: No Smoking Status: Refused to answer - Alcohol History How Often Do You Have a Drink Containing Alcohol: Never - Substance Use History Substance History: No History of Abuse - Travel History Recent Travel in the [place] Within the Last 8 Weeks: No Recent Travel Out of the Country Within the Last 8 Weeks: No - Immunization History Tetanus Immunization: <5 Years Hx Influenza Vaccine This Season: Yes Medications and Allergies Active Medications: Active Medications Cinacalcet (Sensipar) 60 mg PO DAILY [facility] Last Admin: 09/19/18 12:40 Dose: 60 mg Citalopram Hydrobromide (Celexa) 20 mg PO DAILY [facility] Last Admin: 09/19/18 12:40 Dose: 20 mg Clonidine HCl (Catapres) 0.1 mg PO UNSCH PRN PRN Reason: SEE LABEL COMMENTS Dextrose (D50w Vial) 50 ml IV.PUSH UNSCH PRN PRN Reason: PER HYPOGLYCEMIA PROTOCOL Last Admin: 09/18/18 16:21 Dose: 50 ml Digoxin (Lanoxin) 125 mcg PO DAILY [facility] Last Admin: 09/19/18 12:40 Dose: 125 mcg Diphenhydramine HCl (Benadryl) 25 mg PO UNSCH PRN PRN Reason: SEE LABEL COMMENTS Gelatin (Gelfoam 12 Mm/7 Mm Topical) 1 foam TOPICAL PRN PRN PRN Reason: help stop bleeding from site Last Admin: 09/18/18 16:25 Dose: 1 foam Gentamicin Sulfate (Gentamicin Inj) 20 mg OTHER WITH DIALYSIS PRN PRN Reason: Dwell Gentamycin Lock Heparin Sodium (Porcine) (Heparin Inj) 8,000 units OTHER WITH DIALYSIS PRN PRN Reason: for machine prime Heparin Sodium (Porcine) (Heparin Inj) 1,000 units OTHER WITH DIALYSIS PRN PRN Reason: Dwell Heparin to Fill Catheter Albumin Human (Flexbumin 25% Inj) 100 mls @ 60 mls/hr IV.SIG WITH DIALYSIS PRN PRN Reason: hypotension / volume replace Sodium Chloride (Ns Inj) 1,000 mls @ 0 mls/hr OTHER .Q0M PRN PRN Reason: for prime and rinse back Sodium Chloride (Ns Inj) 1,000 mls @ 200 mls/hr OTHER .Q5H PRN PRN Reason: for dialyzer flush PRN Sodium Chloride (Ns Inj) 1,000 mls @ 0 mls/hr IV.CONT .Q0M PRN PRN Reason: hypotension / volume replace Sodium Chloride (Ns Inj) 500 mls @ 30 mls/hr IV.SIG .Q10H [facility] Last Admin: 09/13/18 09:10 Dose: Not Given Dextrose (D10w Inj) 1,000 mls @ 42 mls/hr IV.CONT .[id number] YAMILETH Mannitol (Mannitol Inj) 12.5 gm IV.PUSH UNSCH PRN PRN Reason: hypotension / volume replace Metoprolol Tartrate (Lopressor) 25 mg PO BID [facility] Last Admin: 09/19/18 12:41 Dose: Not Given Midodrine (Proamatine) 10 mg PO MoWeFr [facility] Last Admin: 09/19/18 16:58 Dose: 10 mg Miscellaneous Information ([facility] Nursing Information) 0 each OTHER UNSCH PRN PRN Reason: SEE LABEL COMMENTS Stop: 09/20/18 11:32 Nitroglycerin (Nitrostat Sl) 0.4 mg SL Q5M PRN PRN Reason: CHEST PAIN Ondansetron HCl (Zofran Inj) 4 mg IV.PUSH UNSCH PRN PRN Reason: NAUSEA OR VOMITING Pantoprazole Sodium (Protonix Inj) 40 mg IV.PUSH Q12H [facility] Last Admin: 09/19/18 16:58 Dose: 40 mg Pharmacy Profile Note (Coumadin Consult Pharmacy) 1 each OTHER UNSCH PRN PRN Reason: PHARMACY DOCUMENTATION Sevelamer Carbonate (Renvela) 800 mg PO TIDAC [facility] Last Admin: 09/19/18 16:58 Dose: 800 mg Sodium Chloride (Ns Flush) 2 ml IV.FLUSH PRN PRN PRN Reason: FLUSH AFTER USING IV ACCESS Last Admin: 09/15/18 20:27 Dose: 2 ml Sodium Chloride (Ns Flush) 5 ml IV.FLUSH PRN PRN PRN Reason: flush each lumen during HD Last Admin: 09/16/18 03:23 Dose: 5 ml Warfarin Sodium (Coumadin) 1 mg PO DAILY@1600 [facility] Last Admin: 09/17/18 17:22 Dose: 1 mg Allergies Allergy/AdvReac Type Severity Reaction Status Date / Time bee venom protein (honey bee) Allergy Severe Anaphylaxis Verified 09/11/18 09:23 phenylephrine Allergy Severe Hives Verified 09/11/18 09:30 [From Contac-D Cold (PE)] Home Medications Medication Instructions Recorded Confirmed Type B complex-vitamin C-folic acid 1 tab PO DAILY 09/11/18 09/11/18 History [Jennifer-Phani] cephalexin 500 mg PO QID 09/11/18 09/11/18 History cinacalcet [Sensipar] 60 mg PO HS 09/11/18 09/11/18 History citalopram 20 mg PO DAILY 09/11/18 09/11/18 History digoxin 0.125 mg PO 4XW 09/11/18 09/11/18 History melatonin 3 mg PO HS PRN 09/11/18 09/11/18 History metoprolol tartrate 25 mg PO DAILY 09/11/18 09/11/18 History midodrine 10 mg PO 3XW 09/11/18 09/11/18 History sucroferric oxyhydroxide [Velphoro] 500 mg PO TID 09/11/18 09/11/18 History sulfamethoxazole-trimethoprim 1.5 tab PO BID 09/11/18 09/11/18 History warfarin 5 mg PO DAILY 09/11/18 09/11/18 History Exam Vital signs: Vital Signs 09/18/18 19:28 09/18/18 19:53 09/19/18 00:02 Temperature 98.1 F Pulse Rate 81 88 92 H Respiratory Rate 18 Blood Pressure 104/57 L Pulse Oximetry 95 09/19/18 00:21 09/19/18 03:35 09/19/18 07:00 Temperature 97.7 F 97.9 F Pulse Rate 86 96 H 88 Respiratory Rate 18 18 Blood Pressure 118/83 115/69 Pulse Oximetry 95 94 L 09/19/18 08:30 09/19/18 11:41 09/19/18 12:00 Temperature 97.5 F L 97.8 F Pulse Rate 92 H 108 H 95 H Respiratory Rate 17 15 15 Blood Pressure 130/76 142/86 H 120/88 Pulse Oximetry 95 98 93 L 09/19/18 12:10 09/19/18 12:37 09/19/18 15:21 Temperature 97.8 F 97.1 F L 97.6 F Pulse Rate 90 92 H 97 H Respiratory Rate 16 17 18 Blood Pressure 124/75 121/59 L 132/79 Pulse Oximetry 94 L 96 95 Intake & Output 09/18/18 09/19/18 09/19/18 18:59 06:59 18:59 Intake Total 240 / 240 0 / 0 700 / 700 Output Total 1999 Balance -1760 / -1760 0 / 0 700 / 700 Weight 75.8 kg Intake: Oral 240 / 240 0 / 0 Anesthesia Amount 700 / 700 Output: Urine 0 / 0 Stool 0 / 0 Hemodialysis Amount 1999 Other: # Voids 0 Date of Last Bowel Movement 09/17/18 09/18/18 09/18/18 # Bowel Movements 1 Narrative: GENERAL: Awake and alert. No acute distress. Cooperative. Somewhat unkempt. HEAD: Normocephalic. Atraumatic. EYES: Pupils equal round and reactive to light bilaterally. No scleral icterus. ENT: Moist oral mucosa. NECK: Trachea midline. CHEST: nonlabored breathing. No respiratory distress. CARDIOVASCULAR: Regular rate and rhythm. ABDOMEN: soft, nontender. EXTREMITIES: No cyanosis or edema. SKIN: Warm, dry, nonjaundiced. Results - Labs 09/20/18 03:54 09/20/18 03:58 Laboratory Results - last 24 hr 09/13/18 09/19/18 09/19/18 05:10 00:15 03:58 PT 14.1 H INR 1.4 POC Glucose 112 H JAK2 Mutation (PCR) BCR/abl (FISH) Interp 09/19/18 09/19/18 09/19/18 06:03 12:13 16:58 PT INR POC Glucose 93 106 111 H JAK2 Mutation (PCR) BCR/abl (FISH) Interp - Imaging Imaging: ITS Impressions GI Procedure 09/19/18 00:00 CONCLUSION: Status post placement of an internal biliary stent. Assessment and Plan - Assessment (1) Choledocholithiasis Code(s): K80.50 - Calculus of bile duct without cholangitis or cholecystitis without obstruction Status: Acute (2) End-stage renal disease on hemodialysis Code(s): N18.6 - End stage renal disease; Z99.2 - Dependence on renal dialysis Status: Acute (3) Afib Code(s): I48.91 - Unspecified atrial fibrillation Status: Acute - Plan 63 yo M with choledocholithiasis s/p ERCP with stent placement as well as questionable bilary/ampullary fistula. ESRD on HD and atrial fibrillation. Coumadin currently on hold. He lives at [facility] and uses [employer] for transportation. He denies having any family in town. Recommend that he undergo cholecystectomy as inpatient as long as he is not too high risk. Will ask cardiology for risk assessment as well as nephrology. D/w Melissa CARREON. Hiren for low fat diet.
[2018-09-20] MEDS ORDERED: Dextrose 10% in Water Inj 1,000 ML IV.CONT SCH
[2018-09-20] MEDS: Pantoprazole Inj 40 MG Vial IV.PUSH SCH ×2 (03:30→17:55)
[2018-09-20 05:13] LABS: Hematocrit 39.6 % (39.0-51.0); Hemoglobin 13.6 gm/dL (13.0-17.0); Mean Corpuscular HGB Conc 34.3 % (32.0-36.0); Mean Corpuscular Hemoglobin 31.9 pg (27.0-34.0); Mean Corpuscular Volume 93.1 fL (80.0-100.0); Mean Platelet Volume 7.2 fL (7.0-11.0); Platelet Count 212 th/mm3 (150-450); Red Blood Count 4.25 mil/mm3 (4.50-5.90); Red Cell Distribution Width 16.5 % (11.6-17.2); White Blood Count 8.5 th/mm3 (4.0-11.0)
[2018-09-20 05:25] LABS: INR 1.3 Ratio; Prothrombin Time 13.1 sec (9.8-11.6)
[2018-09-20 05:42] LABS: Alanine Aminotransferase 16 U/L (12-78); Albumin 2.6 g/dL (3.4-5.0); Anion Gap 9 meq/L (5-15); Aspartate Aminotransferase 16 U/L (15-37); Blood Urea Nitrogen 31 mg/dL (7-18); Calcium 8.1 mg/dL (8.5-10.1); Carbon Dioxide 29.8 meq/L (21.0-32.0); Chloride 97 meq/L (98-107); Glomerular Filtration Rate 7 mL/min (>89); Glucose,Random 106 mg/dL (74-106); Phosphorus 4.8 mg/dL (2.5-4.9); Potassium 4.9 meq/L (3.5-5.1); Sodium 136 meq/L (136-145)
[2018-09-20 05:43] LABS: Alkaline Phosphatase 109 U/L (45-117); Total Protein 6.4 g/dL (6.4-8.2)
--- NOTE | 2018-09-20 09:28 | P.PN ---
Subjective Interval history: Follow-up visit for GI bleed, status post ERCP with stenting. Patient is seen and examined resting in bed and appears to be in no acute distress. Denies any fevers, chills, nausea, vomiting or further diarrhea. He denies any abdominal pain or discomfort, tolerated liquid diet yesterday well. Physical Exam Vital signs: Vital Signs 09/19/18 11:41 09/19/18 12:00 09/19/18 12:10 Temperature 97.8 F 97.8 F Pulse Rate 108 H 95 H 90 Respiratory Rate 15 15 16 Blood Pressure 142/86 H 120/88 124/75 Pulse Oximetry 98 93 L 94 L 09/19/18 12:37 09/19/18 15:21 09/19/18 20:00 Temperature 97.1 F L 97.6 F Pulse Rate 92 H 97 H 70 Respiratory Rate 17 18 Blood Pressure 121/59 L 132/79 Pulse Oximetry 96 95 09/19/18 20:05 09/19/18 23:43 09/20/18 00:01 Temperature 97.5 F L 97.6 F Pulse Rate 80 89 76 Respiratory Rate 18 19 Blood Pressure 134/70 148/87 H Pulse Oximetry 94 L 96 09/20/18 04:00 Temperature 97.8 F Pulse Rate 75 Respiratory Rate 18 Blood Pressure 130/66 Pulse Oximetry 96 Intake & Output 09/19/18 09/20/18 09/20/18 18:59 06:59 18:59 Intake Total 940 / 940 360 / 360 Output Total 0 / 0 Balance 940 / 940 360 / 360 Weight 75.8 kg Intake: Oral 240 / 240 360 / 360 Anesthesia Amount 700 / 700 Output: Urine 0 / 0 Other: Post Void Residual 0 # Voids 0 # Incontinent Voids 0 # Urine Diapers 0 Date of Last Bowel Movement 09/18/18 09/18/18 # Bowel Movements 0 Narrative: GENERAL: Well-developed, well-nourished male resting in bed in no acute distress. SKIN: Warm and dry. Bilateral lower extremity small scratches and scabs in various stages of healing, do not appear infected. HEAD: Atraumatic. Normocephalic. EYES: Pupils equal and round. No scleral icterus. No injection or drainage. ENT: No nasal bleeding or discharge. Mucous membranes pink and moist. NECK: Trachea midline. CARDIOVASCULAR: Irregular rhythm with 2/6 murmur. Left upper extremity fistula with positive bruit and thrill. RESPIRATORY: No accessory muscle use. Clear to auscultation. Breath sounds equal bilaterally. GASTROINTESTINAL: Abdomen soft, non-tender, nondistended. + Bowel sounds MUSCULOSKELETAL: Extremities without clubbing, cyanosis, or edema. No obvious deformities. NEUROLOGICAL: Awake, alert. No obvious cranial nerve deficits. Motor grossly within normal limits. Normal speech. PSYCHIATRIC: Appropriate mood and affect; insight and judgment normal. Results - Labs CBC & Chem 7: 09/20/18 03:54 09/20/18 03:58 Laboratory Results - last 24 hr 09/13/18 09/19/18 09/19/18 05:10 12:13 16:58 WBC RBC Hgb Hct MCV MCH MCHC RDW Plt Count MPV PT INR Sodium Potassium Chloride Carbon Dioxide Anion Gap BUN Creatinine Estimated GFR POC Glucose 106 111 H Random Glucose Calcium Phosphorus Total Bilirubin AST ALT Alkaline Phosphatase Total Protein Albumin JAK2 Mutation (PCR) BCR/abl (FISH) Interp 09/20/18 09/20/18 09/20/18 00:22 03:54 03:58 WBC 8.5 RBC 4.25 L Hgb 13.6 Hct 39.6 MCV 93.1 MCH 31.9 MCHC 34.3 RDW 16.5 Plt Count 212 MPV 7.2 PT INR Sodium 136 Potassium 4.9 Chloride 97 L Carbon Dioxide 29.8 Anion Gap 9 BUN 31 H Creatinine 8.23 H Estimated GFR 7 L POC Glucose 116 H Random Glucose 106 Calcium 8.1 L Phosphorus 4.8 Total Bilirubin 0.7 AST 16 ALT 16 Alkaline Phosphatase 109 Total Protein 6.4 Albumin 2.6 L JAK2 Mutation (PCR) BCR/abl (FISH) Interp 09/20/18 09/20/18 03:58 05:37 WBC RBC Hgb Hct MCV MCH MCHC RDW Plt Count MPV PT 13.1 H INR 1.3 Sodium Potassium Chloride Carbon Dioxide Anion Gap BUN Creatinine Estimated GFR POC Glucose 102 Random Glucose Calcium Phosphorus Total Bilirubin AST ALT Alkaline Phosphatase Total Protein Albumin JAK2 Mutation (PCR) BCR/abl (FISH) Interp - Imaging Impressions GI Procedure 09/19/18 00:00 CONCLUSION: Status post placement of an internal biliary stent. Assessment and Plan - Assessment (1) End-stage renal disease on hemodialysis Code(s): N18.6 - End stage renal disease; Z99.2 - Dependence on renal dialysis Status: Acute (2) GI bleed Code(s): K92.2 - Gastrointestinal hemorrhage, unspecified Status: Acute (3) Afib Code(s): I48.91 - Unspecified atrial fibrillation Status: Acute - Plan This patient is a 63 y/o male with a dx of ESRD on MWF, a fib on coumadin, HTN, Last HD on Wednesday through left upper ext AVF. Patient says he has been having black stools for the past month but did not want to come to the hospital. Yesterday he had an episode of black diarrhea and decided to come into the ED for evaluation. He says he has also been feeling weak. In the ED he was found to be hypotensive. INR found to be supratherapeutic at 4.8. Supratherapeutic INR with likely Upper GI Bleed Cholelithiasis -Coumadin continues to be on hold secondary to recent GI bleed and possible cholecystectomy. -GI consulted, EGD done 09/13 -ulcer; biopsies taken. GI recommending no anticoagulation A. fib; risk of clot currently outweighs risk of bleed so anticoagulation was resumed. -s/p EUS and ERCP 09/19 status post placement of internal biliary stent. Biopsies taken with recommendations for cholecystectomy, diet advanced to clear liquids, will need ERCP in 3 months to remove stent, follow-up with GI and 34 weeks. -General surgery consulted, plans for cholecystectomy during hospitalization. Patient will require cardiac clearance, consult cardiology for risk assessment. Hypoglycemia -Recurrent secondary to n.p.o. status per -Patient with a history of ongoing hypoglycemia; may need endocrinology workup as outpatient -Blood sugar stable, on low-fat diet. A. fib with RVR 4 beat run of V. tach -Continue digoxin and BB. -Anticoagulated on Coumadin, continue to hold for GS eval and possible surgical intervention. -Electrolytes checked and stable, no cardiac complaints, continue to monitor. ESRD on HD -Nephrology following, appreciate assistance. -Nephrology has cleared patient for possible cholecystectomy. 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 - Noah 2 mutation negative in the past, recheck pending. Hematology suspects polycythemia is reactive, no treatment indicated. -Hematology has signed off with follow-up as outpatient in 4-6 weeks. 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
[2018-09-20] MEDS: Metoprolol Tartrate 25 MG Tablet PO SCH ×2 (09:30→21:10)
[2018-09-20] MEDS: Citalopram 20 MG Tablet PO SCH (09:31)
[2018-09-20] MEDS: Digoxin 125 MCG Tablet PO SCH (09:31)
--- NOTE | 2018-09-20 09:54 | P.PNGI ---
Subjective Interval history: Pt is resting in bed, not voicing any complaints <CésarJaylon anaya - Last Filed: 09/20/18 10:48> Physical Exam Vital signs: Vital Signs 09/19/18 11:41 09/19/18 12:00 09/19/18 12:10 Temperature 97.8 F 97.8 F Pulse Rate 108 H 95 H 90 Respiratory Rate 15 15 16 Blood Pressure 142/86 H 120/88 124/75 Pulse Oximetry 98 93 L 94 L 09/19/18 12:37 09/19/18 15:21 09/19/18 20:00 Temperature 97.1 F L 97.6 F Pulse Rate 92 H 97 H 70 Respiratory Rate 17 18 Blood Pressure 121/59 L 132/79 Pulse Oximetry 96 95 09/19/18 20:05 09/19/18 23:43 09/20/18 00:01 Temperature 97.5 F L 97.6 F Pulse Rate 80 89 76 Respiratory Rate 18 19 Blood Pressure 134/70 148/87 H Pulse Oximetry 94 L 96 09/20/18 04:00 09/20/18 08:00 Temperature 97.8 F 98.4 F Pulse Rate 75 81 Respiratory Rate 18 18 Blood Pressure 130/66 136/83 Pulse Oximetry 96 92 L Intake & Output 09/19/18 09/20/18 09/20/18 18:59 06:59 18:59 Intake Total 940 / 940 360 / 360 Output Total 0 / 0 Balance 940 / 940 360 / 360 Weight 75.8 kg Intake: Oral 240 / 240 360 / 360 Anesthesia Amount 700 / 700 Output: Urine 0 / 0 Other: Post Void Residual 0 # Voids 0 # Incontinent Voids 0 # Urine Diapers 0 Date of Last Bowel Movement 09/18/18 09/18/18 # Bowel Movements 0 <Abebe Houston - Last Filed: 09/20/18 09:54> Vital signs: Vital Signs 09/19/18 11:41 09/19/18 12:00 09/19/18 12:10 Temperature 97.8 F 97.8 F Pulse Rate 108 H 95 H 90 Respiratory Rate 15 15 16 Blood Pressure 142/86 H 120/88 124/75 Pulse Oximetry 98 93 L 94 L 09/19/18 12:37 09/19/18 15:21 09/19/18 20:00 Temperature 97.1 F L 97.6 F Pulse Rate 92 H 97 H 70 Respiratory Rate 17 18 Blood Pressure 121/59 L 132/79 Pulse Oximetry 96 95 09/19/18 20:05 09/19/18 23:43 09/20/18 00:01 Temperature 97.5 F L 97.6 F Pulse Rate 80 89 76 Respiratory Rate 18 19 Blood Pressure 134/70 148/87 H Pulse Oximetry 94 L 96 09/20/18 04:00 09/20/18 08:00 Temperature 97.8 F 98.4 F Pulse Rate 75 81 Respiratory Rate 18 18 Blood Pressure 130/66 136/83 Pulse Oximetry 96 92 L Intake & Output 09/19/18 09/20/18 09/20/18 18:59 06:59 18:59 Intake Total 940 / 940 360 / 360 Output Total 0 / 0 Balance 940 / 940 360 / 360 Weight 75.8 kg Intake: Oral 240 / 240 360 / 360 Anesthesia Amount 700 / 700 Output: Urine 0 / 0 Other: Post Void Residual 0 # Voids 0 # Incontinent Voids 0 # Urine Diapers 0 Date of Last Bowel Movement 09/18/18 09/18/18 # Bowel Movements 0 Narrative: GENERAL: Awake and alert. No acute distress. HEAD: Normocephalic. Atraumatic. EYES: Pupils equal round and reactive to light bilaterally. No scleral icterus. ENT: Moist oral mucosa. NECK: Trachea midline. CHEST: nonlabored breathing. No respiratory distress. CARDIOVASCULAR: Regular rate and rhythm. ABDOMEN: soft, nontender. EXTREMITIES: No cyanosis or edema. SKIN: Warm, dry, nonjaundiced. <CésarJaylon anaya - Last Filed: 09/20/18 10:48> Results - Labs CBC & Chem 7: 09/20/18 03:54 09/20/18 03:58 Laboratory Results - last 24 hr 09/13/18 09/19/18 09/19/18 05:10 12:13 16:58 WBC RBC Hgb Hct MCV MCH MCHC RDW Plt Count MPV PT INR Sodium Potassium Chloride Carbon Dioxide Anion Gap BUN Creatinine Estimated GFR POC Glucose 106 111 H Random Glucose Calcium Phosphorus Total Bilirubin AST ALT Alkaline Phosphatase Total Protein Albumin JAK2 Mutation (PCR) BCR/abl (FISH) Interp 09/20/18 09/20/18 09/20/18 00:22 03:54 03:58 WBC 8.5 RBC 4.25 L Hgb 13.6 Hct 39.6 MCV 93.1 MCH 31.9 MCHC 34.3 RDW 16.5 Plt Count 212 MPV 7.2 PT INR Sodium 136 Potassium 4.9 Chloride 97 L Carbon Dioxide 29.8 Anion Gap 9 BUN 31 H Creatinine 8.23 H Estimated GFR 7 L POC Glucose 116 H Random Glucose 106 Calcium 8.1 L Phosphorus 4.8 Total Bilirubin 0.7 AST 16 ALT 16 Alkaline Phosphatase 109 Total Protein 6.4 Albumin 2.6 L JAK2 Mutation (PCR) BCR/abl (FISH) Interp 09/20/18 09/20/18 03:58 05:37 WBC RBC Hgb Hct MCV MCH MCHC RDW Plt Count MPV PT 13.1 H INR 1.3 Sodium Potassium Chloride Carbon Dioxide Anion Gap BUN Creatinine Estimated GFR POC Glucose 102 Random Glucose Calcium Phosphorus Total Bilirubin AST ALT Alkaline Phosphatase Total Protein Albumin JAK2 Mutation (PCR) BCR/abl (FISH) Interp - Imaging Impressions GI Procedure 09/19/18 00:00 CONCLUSION: Status post placement of an internal biliary stent. <Abebe Houston - Last Filed: 09/20/18 09:54> - Labs CBC & Chem 7: 09/20/18 03:54 09/20/18 03:58 Laboratory Results - last 24 hr 09/13/18 09/19/18 09/19/18 05:10 12:13 16:58 WBC RBC Hgb Hct MCV MCH MCHC RDW Plt Count MPV PT INR Sodium Potassium Chloride Carbon Dioxide Anion Gap BUN Creatinine Estimated GFR POC Glucose 106 111 H Random Glucose Calcium Phosphorus Total Bilirubin AST ALT Alkaline Phosphatase Total Protein Albumin JAK2 Mutation (PCR) BCR/abl (FISH) Interp 09/20/18 09/20/18 09/20/18 00:22 03:54 03:58 WBC 8.5 RBC 4.25 L Hgb 13.6 Hct 39.6 MCV 93.1 MCH 31.9 MCHC 34.3 RDW 16.5 Plt Count 212 MPV 7.2 PT INR Sodium 136 Potassium 4.9 Chloride 97 L Carbon Dioxide 29.8 Anion Gap 9 BUN 31 H Creatinine 8.23 H Estimated GFR 7 L POC Glucose 116 H Random Glucose 106 Calcium 8.1 L Phosphorus 4.8 Total Bilirubin 0.7 AST 16 ALT 16 Alkaline Phosphatase 109 Total Protein 6.4 Albumin 2.6 L JAK2 Mutation (PCR) BCR/abl (FISH) Interp 09/20/18 09/20/18 03:58 05:37 WBC RBC Hgb Hct MCV MCH MCHC RDW Plt Count MPV PT 13.1 H INR 1.3 Sodium Potassium Chloride Carbon Dioxide Anion Gap BUN Creatinine Estimated GFR POC Glucose 102 Random Glucose Calcium Phosphorus Total Bilirubin AST ALT Alkaline Phosphatase Total Protein Albumin JAK2 Mutation (PCR) BCR/abl (FISH) Interp - Imaging Impressions GI Procedure 09/19/18 00:00 CONCLUSION: Status post placement of an internal biliary stent. <RjElijahsj - Last Filed: 09/20/18 10:48> Assessment and Plan (1) GI bleed Status: Acute Code(s): K92.2 - Gastrointestinal hemorrhage, unspecified - Attending Attestation I have seen and examined the patient and reviewed the patients care with the [employer]. I agree with the above assessment and recommendations as documented above. Patient ERCP revealed an obstructing gallstone in the common bile duct. A sphincterotomy was performed. The stone was cleared. A stent was left in place. Patient also had multiple gallstones in the gallbladder and will require surgical evaluation for laparoscopic cholecystectomy. Patient is awaiting cardiology and nephrology clearance prior to surgery. Surgical consult has seen the patient. Patient will require follow-up upper endoscopy with stent removal in 3 months. We will sign off the case for now. If we are needed please not hesitate to contact us will be available to assist in the future if needed. <Abebe Houston - Last Filed: 09/20/18 09:54> (1) GI bleed Status: Acute Code(s): K92.2 - Gastrointestinal hemorrhage, unspecified - Plan This patient is a 63-year-old male with past medical history significant for end-stage renal disease on hemodialysis, atrial fibrillation and hypertension. Past surgical history significant for metal removed from back, and left upper extremity AV fistula. Patient states hemodialysis treatments are every Wednesday and Wednesday. Patient was sent to [facility] from a group home facility with reported black stools onset 1 month ago. Patient states he has been experiencing generalized weakness and has noted no abdominal pain fevers or chills. Patient denies any chest pain or shortness of breath. Denies nausea or vomiting. Patient currently on Coumadin for atrial fibrillation. Upon admission, INR found to be supra therapeutic at 4.8. Patient states last EGD done in December 2017 revealed gastric ulcer. Our service has been consulted to evaluate patient for GI bleeding. GI bleed INR 4.8 History of gastric ulcer Patient endorses black stools times 1 month. Patient with known ulcer disease diagnosed in December 2017. Denies any hematemesis. Currently on Coumadin for atrial fibrillation with INR 4.8. -WBC 6.1 hemoglobin 16.3 hematocrit 47.3 platelet count 172 -BUN 68 creatinine 9.1 GFR 6 calcium 5.9 total bilirubin 0.4 AST 21 ALT 23 alk phos 89 albumin 1.9 09/12/2018 Patient denies any noted bleeding Denies hematemesis or abdominal pain States he is hungry Currently receiving hemodialysis WBC 5.9 hemoglobin 15.1 hematocrit 45.0 INR 2.2 09/14/2018 Patient reports multiple stools overnight. C. difficile toxin negative, will repeat same and include additional stool studies. 09/13/2018 EGD revealed the following-- Esophagus: Z line seen at 40 cm, it had a regular smooth appearance. The esophageal mucosa was normal. Stomach: Direct and retroflex views were obtained. There were a few 5 mm gastric polyps seen in the body of the stomach, one was biopsied. The antrum had moderate erythema with edema and friability. Biopsy was obtained. No ulcers or erosions seen. Retroflex showed a normal cardia. Duodenum: The bulb revealed erythema and inflammation, the area was biopsied. No ulcer or erosions. In the second portion the ampulla was seen to be enlarged , edematous and erythematous with what appeared to be a central ulcer where the os should be. The ampulla was biopsied. (09/13) Hemoglobin 14.6 hematocrit 42.5 09/15/2018 Patient denies diarrhea, abdominal pain or nausea vomiting. EGD findings as noted above Surgical specimen pathology reveal the following findings-- AMPULLA, BIOPSY: DUODENAL MUCOSA WITH GRANULATION TISSUE FORMATION AND DETACHED ATYPICAL EPITHELIUM. DUODENUM, BIOPSY: DUODENAL MUCOSA WITH PEPTIC DUODENITIS. GASTRIC ANTRUM, BIOPSY: ANTRAL MUCOSA WITH REACTIVE GASTROPATHY, MAY BE SEEN WITH BILE REFLUX OR DRUG THERAPY. GASTRIC BODY, BIOPSY: GASTRIC MUCOSA WITH MILD ACTIVE CHRONIC GASTRITIS. 09/18/18 Pt denies any gi issues. EUS scheduled tomorrow, discussed with [facility]as [employer]SULTANT cont to hold Coumadin, may resume diet today, npo mn Stools negative for C-diff 09/20/18 S/P EUS followed by an ERCP with sphincterotomy and balloon extraction and stent placement and biopsy on 09/19/18 Choledocholithiasis Cholelithiasis Ulcerated fistulized ampulla PLAN: Await biopsies Recommend cholecystectomy will defer to surgery, they were consulted Patient is awaiting cardiology and nephrology clearance prior to surgery. Patient will need an ERCP in 3 months to remove the stent F/u with Gi in 3-4 weeks This patient has been seen by myself and and this note is written on his behalf <Jaylon De La Rosa - Last Filed: 09/20/18 10:48>
--- NOTE | 2018-09-20 11:48 | P.PNNP ---
Subjective Interval history: All the notes were reviewed. Patient needs cholecystectomy. s/p ERCP. Today he had no specific complaints. Physical Exam Vital signs: Vital Signs 09/19/18 12:00 09/19/18 12:10 09/19/18 12:37 Temperature 97.8 F 97.1 F L Pulse Rate 95 H 90 92 H Respiratory Rate 15 16 17 Blood Pressure 120/88 124/75 121/59 L Pulse Oximetry 93 L 94 L 96 09/19/18 15:21 09/19/18 20:00 09/19/18 20:05 Temperature 97.6 F 97.5 F L Pulse Rate 97 H 70 80 Respiratory Rate 18 18 Blood Pressure 132/79 134/70 Pulse Oximetry 95 94 L 09/19/18 23:43 09/20/18 00:01 09/20/18 04:00 Temperature 97.6 F 97.8 F Pulse Rate 89 76 75 Respiratory Rate 19 18 Blood Pressure 148/87 H 130/66 Pulse Oximetry 96 96 09/20/18 08:00 Temperature 98.4 F Pulse Rate 81 Respiratory Rate 18 Blood Pressure 136/83 Pulse Oximetry 92 L Intake & Output 09/19/18 09/20/18 09/20/18 18:59 06:59 18:59 Intake Total 940 / 940 360 / 360 Output Total 0 / 0 Balance 940 / 940 360 / 360 Weight 75.8 kg Intake: Oral 240 / 240 360 / 360 Anesthesia Amount 700 / 700 Output: Urine 0 / 0 Other: Post Void Residual 0 # Voids 0 # Incontinent Voids 0 # Urine Diapers 0 Date of Last Bowel Movement 09/18/18 09/18/18 09/18/18 # Bowel Movements 0 Narrative: GENERAL: Awake and alert. No acute distress. HEAD: Normocephalic. Atraumatic. EYES: Pupils equal round and reactive to light bilaterally. No scleral icterus. ENT: Moist oral mucosa. NECK: Trachea midline. CHEST: nonlabored breathing. No respiratory distress. CARDIOVASCULAR: Regular rate and rhythm. ABDOMEN: soft, nontender. EXTREMITIES: No cyanosis or edema. SKIN: Warm, dry, nonjaundiced. Assessment and Plan - Assessment (1) End-stage renal disease on hemodialysis Code(s): N18.6 - End stage renal disease; Z99.2 - Dependence on renal dialysis Status: Acute Plan: ESRD MWF Patient normally gets dialysis MWF. Due to holiday schedule patient was dialyzed on Wednesday, and will resume dialysis on Wednesday. Monitor fluid and electrolytes. Avoid nephrotoxic agents. Monitor phosphorus intermittently, patient is on a binder. Avoid BP measurements or blood draws in L arm, AVF. (2) GI bleed Code(s): K92.2 - Gastrointestinal hemorrhage, unspecified Status: Acute Plan: s/p EGD, results reviewed. GI on the case. Patient had endoscopic ultrasound today then had ERCP with sphincterotomy and balloon extraction and stent placement and biopsy. Possible cholecystectomy, Dr. Christina on the case. He is cleared for surgery from renal standpoint. (3) Afib Code(s): I48.91 - Unspecified atrial fibrillation Status: Acute Plan: On metoprolol. Hold Coumadin as surgery is being considered.
[2018-09-21] MEDS: Pantoprazole Inj 40 MG Vial IV.PUSH SCH ×2 (03:57→15:31)
[2018-09-21 04:48] LABS: INR 1.3 Ratio; Prothrombin Time 13.2 sec (9.8-11.6)
[2018-09-21] MEDS: Citalopram 20 MG Tablet PO SCH (08:09)
[2018-09-21] MEDS: Digoxin 125 MCG Tablet PO SCH (08:09)
[2018-09-21] MEDS: Metoprolol Tartrate 25 MG Tablet PO SCH ×2 (08:09→23:00)
[2018-09-21 10:06] LABS: Baso % (Auto) 0.4 % (0.0-2.0); Eos # (Auto) 0.2 th/mm3 (0.0-0.4); Eos % (Auto) 3.6 % (0.0-4.0); Hematocrit 39.8 % (39.0-51.0); Hemoglobin 13.2 gm/dL (13.0-17.0); Lymph # (Auto) 0.6 th/mm3 (1.0-4.8); Lymph % (Auto) 9.3 % (9.0-44.0); Mean Corpuscular Hemoglobin 31.5 pg (27.0-34.0); Mean Corpuscular Volume 95.4 fL (80.0-100.0); Mean Platelet Volume 6.9 fL (7.0-11.0); Mono # (Auto) 0.5 th/mm3 (0.0-0.9); Mono % (Auto) 7.7 % (0.0-8.0); Neut # (Auto) 4.9 th/mm3 (1.8-7.7); Platelet Count 215 th/mm3 (150-450); Red Blood Count 4.18 mil/mm3 (4.50-5.90); Red Cell Distribution Width 16.5 % (11.6-17.2); White Blood Count 6.2 th/mm3 (4.0-11.0)
--- NOTE | 2018-09-21 10:16 | P.PN ---
Subjective Interval history: Follow-up visit for GI bleed, cholelithiasis. Patient seen and examined resting in bed comfortably in no acute distress. Denies any fevers, chills, nausea, vomiting, abdominal pain or discomfort. Patient will need cholecystectomy, pending cardiology clearance, consult placed today. Physical Exam Vital signs: Vital Signs 09/20/18 11:37 09/20/18 16:00 09/20/18 20:04 Temperature 97.1 F L 97.4 F L Pulse Rate 75 82 80 Respiratory Rate 19 18 Blood Pressure 123/68 120/77 Pulse Oximetry 98 95 09/20/18 20:11 09/20/18 23:59 09/21/18 05:18 Temperature 97.7 F 97.1 F L 97.6 F Pulse Rate 79 72 76 Respiratory Rate 19 18 20 Blood Pressure 116/67 144/67 H 138/77 Pulse Oximetry 95 95 94 L 09/21/18 08:08 Temperature 97.4 F L Pulse Rate 73 Respiratory Rate 18 Blood Pressure 135/71 Pulse Oximetry 96 Intake & Output 09/20/18 09/21/18 09/21/18 18:59 06:59 18:59 Other: Date of Last Bowel Movement 09/18/18 09/18/18 Narrative: GENERAL: Well-developed, well-nourished male resting in bed in no acute distress. SKIN: Warm and dry. Bilateral lower extremity small scratches and scabs in various stages of healing, do not appear infected. HEAD: Atraumatic. Normocephalic. EYES: Pupils equal and round. No scleral icterus. No injection or drainage. ENT: No nasal bleeding or discharge. Mucous membranes pink and moist. NECK: Trachea midline. CARDIOVASCULAR: Irregular rhythm with 2/6 murmur. Left upper extremity fistula with positive bruit and thrill. RESPIRATORY: No accessory muscle use. Clear to auscultation. Breath sounds equal bilaterally. GASTROINTESTINAL: Abdomen soft, non-tender, nondistended. + Bowel sounds MUSCULOSKELETAL: Extremities without clubbing, cyanosis, or edema. No obvious deformities. NEUROLOGICAL: Awake, alert. No obvious cranial nerve deficits. Motor grossly within normal limits. Normal speech. PSYCHIATRIC: Appropriate mood and affect; insight and judgment normal. Results - Labs CBC & Chem 7: 09/21/18 09:50 09/21/18 09:50 Laboratory Results - last 24 hr 09/20/18 09/20/18 09/21/18 12:51 23:20 04:10 WBC RBC Hgb Hct MCV MCH MCHC RDW Plt Count MPV Neut % (Auto) Lymph % (Auto) [place] % (Auto) Eos % (Auto) Baso % (Auto) Neut # (Auto) Lymph # (Auto) [place] # (Auto) Eos # (Auto) Baso # (Auto) WBC Differential Differential Comment PT 13.2 H INR 1.3 POC Glucose 114 H 84 09/21/18 09/21/18 05:54 09:50 WBC 6.2 RBC 4.18 L Hgb 13.2 Hct 39.8 MCV 95.4 MCH 31.5 MCHC 33.0 RDW 16.5 Plt Count 215 MPV 6.9 L Neut % (Auto) 79.0 H Lymph % (Auto) 9.3 [place] % (Auto) 7.7 Eos % (Auto) 3.6 Baso % (Auto) 0.4 Neut # (Auto) 4.9 Lymph # (Auto) 0.6 L [place] # (Auto) 0.5 Eos # (Auto) 0.2 Baso # (Auto) 0.0 WBC Differential . Differential Comment Auto diff final PT INR POC Glucose 84 Assessment and Plan - Assessment (1) End-stage renal disease on hemodialysis Code(s): N18.6 - End stage renal disease; Z99.2 - Dependence on renal dialysis Status: Acute (2) GI bleed Code(s): K92.2 - Gastrointestinal hemorrhage, unspecified Status: Acute (3) Afib Code(s): I48.91 - Unspecified atrial fibrillation Status: Acute - Plan This patient is a 63 y/o male with a dx of ESRD on MWF, a fib on coumadin, HTN, Last HD on Wednesday through left upper ext AVF. Patient says he has been having black stools for the past month but did not want to come to the hospital. Yesterday he had an episode of black diarrhea and decided to come into the ED for evaluation. He says he has also been feeling weak. In the ED he was found to be hypotensive. INR found to be supratherapeutic at 4.8. Supratherapeutic INR with likely Upper GI Bleed Cholelithiasis -Coumadin continues to be on hold secondary to recent GI bleed and possible cholecystectomy. -GI consulted, EGD done 09/13 -ulcer; biopsies taken. GI recommending no anticoagulation A. fib; risk of clot currently outweighs risk of bleed so anticoagulation was resumed. -s/p EUS and ERCP 09/19 status post placement of internal biliary stent. Biopsies taken with recommendations for cholecystectomy, diet advanced to clear liquids, will need ERCP in 3 months to remove stent, follow-up with GI and 3-4 weeks. -General surgery consulted, plans for cholecystectomy during hospitalization. Cardiology consulted for risk assessment. Hypoglycemia -Recurrent secondary to n.p.o. status per -Patient with a history of ongoing hypoglycemia; may need endocrinology workup as outpatient -Blood sugar stable, on low-fat diet. A. fib with RVR 4 beat run of V. tach -Continue digoxin and BB. -Anticoagulated on Coumadin, continue to hold for GS eval and possible surgical intervention. -No cardiac complaints, continue to monitor. ESRD on HD -Nephrology following, appreciate assistance. -Creatinine elevated today at 10.31, potassium mildly elevated at 5.3, due for hemodialysis today. -Nephrology has cleared patient for possible cholecystectomy. 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 - Noah 2 mutation negative in the past, recheck pending. Hematology suspects polycythemia is reactive, no treatment indicated. -Hematology has signed off with follow-up as outpatient in 4-6 weeks. 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
[2018-09-21 10:18] LABS: Calcium 8.3 mg/dL (8.5-10.1); Carbon Dioxide 31.8 meq/L (21.0-32.0); Potassium 5.3 meq/L (3.5-5.1)
[2018-09-21] MEDS ORDERED: Bisacodyl 10 MG Supp RECTAL PRN (10:26)
--- NOTE | 2018-09-21 11:53 | P.PNNP ---
Subjective Interval history: Patient was seen, no distress, no complaints. Patient gets dialysis MWF and will be getting dialyzed today. Patient will need cholecystectomy, pending cardiology clearance, consult placed. <Lidia Gleason - Last Filed: 09/21/18 11:53> Physical Exam Vital signs: Vital Signs 09/20/18 16:00 09/20/18 20:04 09/20/18 20:11 Temperature 97.4 F L 97.7 F Pulse Rate 82 80 79 Respiratory Rate 18 19 Blood Pressure 120/77 116/67 Pulse Oximetry 95 95 09/20/18 23:59 09/21/18 05:18 09/21/18 08:08 Temperature 97.1 F L 97.6 F 97.4 F L Pulse Rate 72 76 73 Respiratory Rate 18 20 18 Blood Pressure 144/67 H 138/77 135/71 Pulse Oximetry 95 94 L 96 Intake & Output 09/20/18 09/21/18 09/21/18 18:59 06:59 18:59 Other: Date of Last Bowel Movement 09/18/18 09/18/18 Narrative: GENERAL: no acute distress. SKIN: Warm and dry. HEAD: Atraumatic. Normocephalic. EOMI. No nasal bleeding or discharge. NECK: Trachea midline. CARDIOVASCULAR: Regular rate and rhythm. RESPIRATORY: No accessory muscle use. Clear to auscultation. GASTROINTESTINAL: Abdomen soft, non-tender, nondistended. + Bowel sounds MUSCULOSKELETAL: Extremities without clubbing, cyanosis, or edema. Left upper extremity fistula. NEUROLOGICAL: Awake, alert. <Lidia Gleason - Last Filed: 09/21/18 11:53> Vital signs: Vital Signs 09/21/18 16:00 09/21/18 21:49 09/22/18 01:08 Temperature 97.6 F 97.5 F L 98.3 F Pulse Rate 88 78 82 Respiratory Rate 18 22 17 Blood Pressure 132/79 120/72 122/71 Pulse Oximetry 94 L 94 L 93 L 09/22/18 04:43 09/22/18 08:00 Temperature 97.8 F 97.3 F L Pulse Rate 77 72 Respiratory Rate 16 16 Blood Pressure 126/70 124/77 Pulse Oximetry 96 91 L Intake & Output 09/21/18 09/22/18 09/22/18 18:59 06:59 18:59 Intake Total 260 / 260 1250 / 1250 Output Total 1999 150 / 150 Balance -1740 / -1740 1100 / 1100 Weight 75.9 kg Intake: IV 50 / 50 Ancef 2 GM Premix Inj 2 gm In 50 / 50 50 ml @ 100 mls/hr IV.SIG ONCE ONE Rx#:[id number] Oral 260 / 260 Anesthesia Amount 1200 / 1200 Output: Hemodialysis Amount 1999 Estimated Blood Loss 150 / 150 Other: # Voids 0 # Urine Diapers 1 Date of Last Bowel Movement 09/18/18 09/18/18 # Bowel Movements 0 <Varun Chisholm - Last Filed: 09/22/18 14:49> Assessment and Plan - Assessment (1) End-stage renal disease on hemodialysis Code(s): N18.6 - End stage renal disease; Z99.2 - Dependence on renal dialysis Status: Acute Plan: ESRD MWF Patient gets dialysis MWF and will be getting dialyzed today. Monitor fluid and electrolytes. Avoid nephrotoxic agents. Monitor phosphorus intermittently, patient is on a binder. Avoid BP measurements or blood draws in L arm, AVF. (2) GI bleed Code(s): K92.2 - Gastrointestinal hemorrhage, unspecified Status: Acute Plan: s/p EGD, results reviewed. GI on the case. Patient had endoscopic ultrasound today then had ERCP with sphincterotomy and balloon extraction and stent placement and biopsy. Possible cholecystectomy, Dr. Christina on the case. He is cleared for surgery from renal standpoint. (3) Afib Code(s): I48.91 - Unspecified atrial fibrillation Status: Acute Plan: On metoprolol. Hold Coumadin as surgery is being considered. <Lidia Gleason - Last Filed: 09/21/18 11:53> - Assessment (1) End-stage renal disease on hemodialysis Code(s): N18.6 - End stage renal disease; Z99.2 - Dependence on renal dialysis Status: Acute (2) GI bleed Code(s): K92.2 - Gastrointestinal hemorrhage, unspecified Status: Acute (3) Afib Code(s): I48.91 - Unspecified atrial fibrillation Status: Acute - Attending Attestation patient was seen and examined. Agree with above assessment and plan. <Varun Chisholm - Last Filed: 09/22/18 14:49>
[2018-09-21] MEDS: Senna/Docusate Sodium 8.6/50 MG Tablet PO SCH (12:23)
--- NOTE | 2018-09-21 17:50 | P.CONCA ---
History of Present Illness Service: Cardiology Consult date: 09/21/18 Requesting Physician: Corby Estrada Reason for Consult: Cardiac clearence for surgery Primary Care Provider: Winston Roper MD History of Present Illness: This is a 63-year-old male with a past medical history of ESRD on HD, MWF, atrial fib on Coumadin and hypertension. He admits to using a wheelchair due to increase lower extremity weakness. He states that over the last 4 weeks, he has had black liquid stools. He waited at home because he did not want to be evaluated at the hospital. He states, that on 09/11/18 he became very weak and decided that he needed to seek treatment at the hospital so he came to [facility] for further evaluation. He denied any CP, pressure, palpitations, dizziness, edema or SOB during this time period. He currently denies any CP, pressure, palpitations, dizziness, edema or SOB. He does complain of increase itching all over his body that has progressively gotten worse. Review of Systems All other systems reviewed negative except as stated in HPI PMFSH - History History Provided By: Patient - Medical History Medical History: Medical History (Last Reviewed 09/21/18 @ 07:42 by Genevieve Mays) Afib CVA (cerebral vascular accident) HTN (hypertension) - Tobacco History Second Hand Smoke Exposure: No Smoking Status: Refused to answer - Alcohol History How Often Do You Have a Drink Containing Alcohol: Never - Substance Use History Substance History: No History of Abuse - Travel History Recent Travel in the [place] Within the Last 8 Weeks: No Recent Travel Out of the Country Within the Last 8 Weeks: No - Immunization History Tetanus Immunization: <5 Years Hx Influenza Vaccine This Season: Yes Medications and Allergies Allergies Allergy/AdvReac Type Severity Reaction Status Date / Time bee venom protein (honey bee) Allergy Severe Anaphylaxis Verified 09/11/18 09:23 phenylephrine Allergy Severe Hives Verified 09/11/18 09:30 [From Contac-D Cold (PE)] Home Medications Medication Instructions Recorded Confirmed Type B complex-vitamin C-folic acid 1 tab PO DAILY 09/11/18 09/11/18 History [Jennifer-Phani] cephalexin 500 mg PO QID 09/11/18 09/11/18 History cinacalcet [Sensipar] 60 mg PO HS 09/11/18 09/11/18 History citalopram 20 mg PO DAILY 09/11/18 09/11/18 History digoxin 0.125 mg PO 4XW 09/11/18 09/11/18 History melatonin 3 mg PO HS PRN 09/11/18 09/11/18 History metoprolol tartrate 25 mg PO DAILY 09/11/18 09/11/18 History midodrine 10 mg PO 3XW 09/11/18 09/11/18 History sucroferric oxyhydroxide [Velphoro] 500 mg PO TID 09/11/18 09/11/18 History sulfamethoxazole-trimethoprim 1.5 tab PO BID 09/11/18 09/11/18 History warfarin 5 mg PO DAILY 09/11/18 09/11/18 History Active Medications: Active Medications Al Hydroxide/Mg Hydroxide (Milk Of Magnmagdalene Liq) 30 ml PO Q12H PRN PRN Reason: Mild Constipation Bisacodyl (Dulcolax Supp) 10 mg RECTAL DAILY PRN PRN Reason: SEVERE CONSITIPATION Cinacalcet (Sensipar) 60 mg PO DAILY [facility] Last Admin: 09/21/18 08:10 Dose: 60 mg Citalopram Hydrobromide (Celexa) 20 mg PO DAILY [facility] Last Admin: 09/21/18 08:09 Dose: 20 mg Clonidine HCl (Catapres) 0.1 mg PO UNSCH PRN PRN Reason: SEE LABEL COMMENTS Dextrose (D50w Vial) 50 ml IV.PUSH UNSCH PRN PRN Reason: PER HYPOGLYCEMIA PROTOCOL Last Admin: 09/18/18 16:21 Dose: 50 ml Digoxin (Lanoxin) 125 mcg PO DAILY [facility] Last Admin: 09/21/18 08:09 Dose: 125 mcg Diphenhydramine HCl (Benadryl) 25 mg PO UNSCH PRN PRN Reason: SEE LABEL COMMENTS Gelatin (Gelfoam 12 Mm/7 Mm Topical) 1 foam TOPICAL PRN PRN PRN Reason: help stop bleeding from site Last Admin: 09/18/18 16:25 Dose: 1 foam Gentamicin Sulfate (Gentamicin Inj) 20 mg OTHER WITH DIALYSIS PRN PRN Reason: Dwell Gentamycin Lock Heparin Sodium (Porcine) (Heparin Inj) 8,000 units OTHER WITH DIALYSIS PRN PRN Reason: for machine prime Heparin Sodium (Porcine) (Heparin Inj) 1,000 units OTHER WITH DIALYSIS PRN PRN Reason: Dwell Heparin to Fill Catheter Albumin Human (Flexbumin 25% Inj) 100 mls @ 60 mls/hr IV.SIG WITH DIALYSIS PRN PRN Reason: hypotension / volume replace Sodium Chloride (Ns Inj) 1,000 mls @ 0 mls/hr OTHER .Q0M PRN PRN Reason: for prime and rinse back Sodium Chloride (Ns Inj) 1,000 mls @ 200 mls/hr OTHER .Q5H PRN PRN Reason: for dialyzer flush PRN Sodium Chloride (Ns Inj) 1,000 mls @ 0 mls/hr IV.CONT .Q0M PRN PRN Reason: hypotension / volume replace Sodium Chloride (Ns Inj) 500 mls @ 30 mls/hr IV.SIG .Q10H [facility] Last Admin: 09/13/18 09:10 Dose: Not Given Dextrose (D10w Inj) 1,000 mls @ 42 mls/hr IV.CONT .[id number] [facility] Lactulose (Lactulose Liq) 30 ml PO DAILY PRN PRN Reason: SEVERE CONSITIPATION Mannitol (Mannitol Inj) 12.5 gm IV.PUSH UNSCH PRN PRN Reason: hypotension / volume replace Metoprolol Tartrate (Lopressor) 25 mg PO BID [facility] Last Admin: 09/21/18 08:09 Dose: 25 mg Midodrine (Proamatine) 10 mg PO MoWeFr [facility] Last Admin: 09/21/18 15:31 Dose: 10 mg Nitroglycerin (Nitrostat Sl) 0.4 mg SL Q5M PRN PRN Reason: CHEST PAIN Ondansetron HCl (Zofran Inj) 4 mg IV.PUSH UNSCH PRN PRN Reason: NAUSEA OR VOMITING Pantoprazole Sodium (Protonix Inj) 40 mg IV.PUSH Q12H [facility] Last Admin: 09/21/18 15:31 Dose: 40 mg Pharmacy Profile Note (Coumadin Consult Pharmacy) 1 each OTHER UNSCH PRN PRN Reason: PHARMACY DOCUMENTATION Senna/Docusate Sodium (Aparna-Colace) 1 tab PO BID [facility] Last Admin: 09/21/18 12:23 Dose: 1 tab Sennosides (Senokot) 17.2 mg PO Q12H PRN PRN Reason: Moderate Constipation Sevelamer Carbonate (Renvela) 800 mg PO TIDAC [facility] Last Admin: 09/21/18 17:19 Dose: 800 mg Sodium Chloride (Ns Flush) 2 ml IV.FLUSH PRN PRN PRN Reason: FLUSH AFTER USING IV ACCESS Last Admin: 09/15/18 20:27 Dose: 2 ml Sodium Chloride (Ns Flush) 5 ml IV.FLUSH PRN PRN PRN Reason: flush each lumen during HD Last Admin: 09/16/18 03:23 Dose: 5 ml Warfarin Sodium (Coumadin) 1 mg PO DAILY@1600 [facility] Last Admin: 09/19/18 18:12 Dose: Not Given Exam Vital signs: Vital Signs 09/20/18 20:04 09/20/18 20:11 09/20/18 23:59 Temperature 97.7 F 97.1 F L Pulse Rate 80 79 72 Respiratory Rate 19 18 Blood Pressure 116/67 144/67 H Pulse Oximetry 95 95 09/21/18 05:18 09/21/18 08:08 Temperature 97.6 F 97.4 F L Pulse Rate 76 73 Respiratory Rate 20 18 Blood Pressure 138/77 135/71 Pulse Oximetry 94 L 96 Intake & Output 09/20/18 09/21/18 09/21/18 18:59 06:59 18:59 Other: Date of Last Bowel Movement 09/18/18 09/18/18 09/18/18 - Constitutional no acute distress - Routine HEENT Exam Head: Present: normocephalic Eye: Present: PERRL ENT: Present: mucous membranes moist - Routine Respiratory Exam Present: CTA bilaterally - Routine Cardiovascular Exam Present: S1, S2, irregular rhythm. Absent: murmur, gallop - Routine Abdominal Exam Present: normoactive bowel sounds - Routine Extremities Exam Present: full ROM, pulses intact, normal capillary refill. Absent: cyanosis, clubbing, edema - Routine Skin Exam Present: wounds, rash Comments: small scabs all over body due to patient scratching - Routine Neurological Exam Present: oriented X3 Results 09/21/18 09:50 09/21/18 09:50 Cardiac Enzymes 09/20/18 Range/Units 03:58 AST 16 (15-37) U/L Coagulation 09/20/18 09/21/18 Range/Units 03:58 04:10 PT 13.1 H 13.2 H (9.8-11.6) sec CBC 12/25/18 12/26/18 Range/Units 03:54 09:50 WBC 8.5 6.2 (4.0-11.0) th/mm3 RBC 4.25 L 4.18 L (4.50-5.90) mil/mm3 Hgb 13.6 13.2 (13.0-17.0) gm/dL Hct 39.6 39.8 (39.0-51.0) % Plt Count 212 215 (150-450) th/mm3 Neut # (Auto) 4.9 (1.8-7.7) th/mm3 Lymph # (Auto) 0.6 L (1.0-4.8) th/mm3 [place] # (Auto) 0.5 (0.0-0.9) th/mm3 Eos # (Auto) 0.2 (0.0-0.4) th/mm3 Baso # (Auto) 0.0 (0.0-0.2) th/mm3 Comprehensive Metabolic Panel 09/20/18 09/21/18 Range/Units 03:58 09:50 Sodium 136 135 L (136-145) meq/L Potassium 4.9 5.3 H (3.5-5.1) meq/L Chloride 97 L 95 L (98-107) meq/L Carbon Dioxide 29.8 31.8 (21.0-32.0) meq/L BUN 31 H 56 H (7-18) mg/dL Creatinine 8.23 H 10.31 H* D (0.60-1.30) mg/dL Calcium 8.1 L 8.3 L (8.5-10.1) mg/dL AST 16 (15-37) U/L ALT 16 (12-78) U/L Alkaline Phosphatase 109 (45-117) U/L Total Protein 6.4 (6.4-8.2) g/dL Albumin 2.6 L (3.4-5.0) g/dL Intake and Output 09/21/18 09/21/18 09/21/18 06:59 14:59 22:59 Other: Date of Last Bowel Movement 09/18/18 Assessment and Plan - Assessment (1) GI bleed Code(s): K92.2 - Gastrointestinal hemorrhage, unspecified Status: Acute (2) End-stage renal disease on hemodialysis Code(s): N18.6 - End stage renal disease; Z99.2 - Dependence on renal dialysis Status: Acute (3) Hypertension Code(s): I10 - Essential (primary) hypertension Status: Acute (4) Afib Code(s): I48.91 - Unspecified atrial fibrillation Status: Acute (5) Polycythemia Code(s): D75.1 - Secondary polycythemia Status: Acute (6) Choledocholithiasis Code(s): K80.50 - Calculus of bile duct without cholangitis or cholecystitis without obstruction Status: Acute - Plan Patient is currently in atrial fibrillation with controlled VR. Continue with current treatment plan. No signs of ACS, we will continue to monitor. Cholecystectomy planned. Due to patient's cardiac history, the risk of cardiac complications is increased , but not prohibitive. Patient can be cleared for procedure from a cardiology standpoint, OK to hold anticoagulation prior to the procedure. Proceed with the surgery as planned. We will continue to monitor patient during his hospitalization. The patient was seen and evaluated by Dr. Guadarrama who participated in care, management and decision making. - Attending Attestation Patient seen and examined. I reviewed and agree with the evaluation and plan as presented. Continue monitoring. Proceed with the surgery as planned.
--- NOTE | 2018-09-21 20:30 | P.PNGS ---
Subjective Patient reports: no new complaints (denies pain at the moment) Physical Exam Vital signs: Vital Signs 09/20/18 23:59 09/21/18 05:18 09/21/18 08:08 Temperature 97.1 F L 97.6 F 97.4 F L Pulse Rate 72 76 73 Respiratory Rate 18 20 18 Blood Pressure 144/67 H 138/77 135/71 Pulse Oximetry 95 94 L 96 09/21/18 16:00 Temperature 97.6 F Pulse Rate 88 Respiratory Rate 18 Blood Pressure 132/79 Pulse Oximetry 94 L Intake & Output 09/21/18 09/21/18 09/22/18 06:59 18:59 06:59 Other: # Voids 0 Date of Last Bowel Movement 09/18/18 09/18/18 - Routine Abdominal Exam Present: soft (nt/nd) Results - Labs 09/21/18 09:50 09/21/18 09:50 Laboratory Results - last 24 hr 09/20/18 09/21/18 09/21/18 23:20 04:10 05:54 WBC RBC Hgb Hct MCV MCH MCHC RDW Plt Count MPV Neut % (Auto) Lymph % (Auto) [place] % (Auto) Eos % (Auto) Baso % (Auto) Neut # (Auto) Lymph # (Auto) [place] # (Auto) Eos # (Auto) Baso # (Auto) WBC Differential Differential Comment PT 13.2 H INR 1.3 Sodium Potassium Chloride Carbon Dioxide Anion Gap BUN Creatinine Estimated GFR POC Glucose 84 84 Random Glucose Calcium 09/21/18 09/21/18 09/21/18 09:50 09:50 17:39 WBC 6.2 RBC 4.18 L Hgb 13.2 Hct 39.8 MCV 95.4 MCH 31.5 MCHC 33.0 RDW 16.5 Plt Count 215 MPV 6.9 L Neut % (Auto) 79.0 H Lymph % (Auto) 9.3 [place] % (Auto) 7.7 Eos % (Auto) 3.6 Baso % (Auto) 0.4 Neut # (Auto) 4.9 Lymph # (Auto) 0.6 L [place] # (Auto) 0.5 Eos # (Auto) 0.2 Baso # (Auto) 0.0 WBC Differential . Differential Comment Auto diff final PT INR Sodium 135 L Potassium 5.3 H Chloride 95 L Carbon Dioxide 31.8 Anion Gap 8 BUN 56 H Creatinine 10.31 H* D Estimated GFR 5 L POC Glucose 78 Random Glucose 76 Calcium 8.3 L 09/21/18 20:23 WBC RBC Hgb Hct MCV MCH MCHC RDW Plt Count MPV Neut % (Auto) Lymph % (Auto) [place] % (Auto) Eos % (Auto) Baso % (Auto) Neut # (Auto) Lymph # (Auto) [place] # (Auto) Eos # (Auto) Baso # (Auto) WBC Differential Differential Comment PT INR Sodium Potassium Chloride Carbon Dioxide Anion Gap BUN Creatinine Estimated GFR POC Glucose 72 Random Glucose Calcium - Imaging Imaging: ITS Impressions GI Procedure 09/19/18 00:00 CONCLUSION: Status post placement of an internal biliary stent. Assessment and Plan - Plan choledocholithiasis/cholelithiasis, multiple medical issues, cleared by nephrology and increased risk but cleared by cardiology also pt is s/p ercp with cbd stone removal and stent placement PLAN Discussed with patient will plan for lap carlton tomorrow NPO after mn consent will follow recheck am labs
[2018-09-21] MEDS: Dextrose 10% in Water Inj 1,000 ML IV.CONT SCH (23:45)
[2018-09-22] MEDS: Senna/Docusate Sodium 8.6/50 MG Tablet PO SCH ×2 (01:36→20:06)
[2018-09-22] MEDS: Pantoprazole Inj 40 MG Vial IV.PUSH SCH (04:30)
[2018-09-22 07:05] LABS: Activated Partial Thrombo Time 34.7 sec (23.4-31.7); INR 1.3 Ratio; Prothrombin Time 12.9 sec (9.8-11.6)
[2018-09-22] MEDS ORDERED: fentaNYL Citrate Inj 250 MCG/5 ML Ampul ONE (07:40)
[2018-09-22] MEDS: Metoprolol Tartrate 25 MG Tablet PO SCH ×2 (07:59→20:14)
[2018-09-22] MEDS ORDERED: Metoprolol Tartrate 25 MG Tablet PO ONE (08:30)
[2018-09-22] MEDS ORDERED: Sodium Chlor 0.9% Inj 500 ML IV.CONT ONE (08:30)
[2018-09-22] MEDS ORDERED: Chlorhexidine Gluconate 2% 1 Pack (2 Cloths) TOPICAL ONE (08:30)
[2018-09-22] MEDS ORDERED: Bupivacaine/Epinephrine Inj 0.25% 50 ML Vial ONE (09:44)
--- NOTE | 2018-09-22 12:17 | P.OP ---
- Preoperative Diagnosis (1) Choledocholithiasis - Postoperative Diagnosis (1) Choledocholithiasis Procedure: lap carlton Anesthesia: GETA Surgeon: Shaheen Castelan MD Estimated blood loss (mL): 5 Pathology: other (gallbladder) Operation and Findings: distended gallbladder
[2018-09-22] MEDS ORDERED: ceFAZolin 2 GM Premix Inj 2 GM/50 ML PIGGYBACK IV.SIG ONE (13:03)
[2018-09-22 14:30] LABS: Hematocrit 37.3 % (39.0-51.0); Hemoglobin 12.7 gm/dL (13.0-17.0)
[2018-09-22] MEDS ORDERED: *Meperidine Inj 25 MG/ML Vial PERIprocedural Use ONLY ONE (14:55)
--- NOTE | 2018-09-22 16:19 | P.PNNP ---
Subjective Interval history: Patient was seen s/p Choledochectomy. No distress, complaints of right sided pain. Patient gets dialysis MWF, patient to be dialyzed tomorrow. <Lidia Gleason - Last Filed: 09/22/18 16:19> Physical Exam Vital signs: Vital Signs 09/21/18 21:49 09/22/18 01:08 09/22/18 04:43 Temperature 97.5 F L 98.3 F 97.8 F Pulse Rate 78 82 77 Respiratory Rate 22 17 16 Blood Pressure 120/72 122/71 126/70 Pulse Oximetry 94 L 93 L 96 09/22/18 08:00 09/22/18 14:27 09/22/18 14:30 Temperature 97.3 F L 97.3 F L Pulse Rate 72 99 H 97 H Respiratory Rate 16 15 13 Blood Pressure 124/77 118/81 121/67 Pulse Oximetry 91 L 98 99 09/22/18 14:45 09/22/18 15:00 09/22/18 15:12 Temperature Pulse Rate 100 H 95 H 90 Respiratory Rate 12 16 Blood Pressure 135/67 120/62 Pulse Oximetry 96 98 95 09/22/18 15:15 09/22/18 15:30 Temperature 97.6 F Pulse Rate 92 H 92 H Respiratory Rate 19 14 Blood Pressure 118/69 114/69 Pulse Oximetry 95 95 Intake & Output 09/21/18 09/22/18 09/22/18 18:59 06:59 18:59 Intake Total 260 / 260 1250 / 1250 Output Total 1999 150 / 150 Balance -1740 / -1740 1100 / 1100 Weight 75.9 kg Intake: IV 50 / 50 Ancef 2 GM Premix Inj 2 gm In 50 / 50 50 ml @ 100 mls/hr IV.SIG ONCE ONE Rx#:[id number] Oral 260 / 260 Anesthesia Amount 1200 / 1200 Output: Hemodialysis Amount 1999 Estimated Blood Loss 150 / 150 Other: # Voids 0 # Urine Diapers 1 Date of Last Bowel Movement 09/18/18 09/18/18 # Bowel Movements 0 Narrative: GENERAL: no acute distress. SKIN: Warm and dry. HEAD: Atraumatic. Normocephalic. EOMI. No nasal bleeding or discharge. NECK: Trachea midline. CARDIOVASCULAR: Murmur. RESPIRATORY: No accessory muscle use. Clear to auscultation. GASTROINTESTINAL: Tender, nondistended. MUSCULOSKELETAL: Extremities without clubbing, cyanosis, or edema. Left upper extremity fistula. NEUROLOGICAL: Awake, alert. <Lidia Gleason - Last Filed: 09/22/18 16:19> Vital signs: Vital Signs 09/22/18 14:45 09/22/18 15:00 09/22/18 15:12 Temperature Pulse Rate 100 H 95 H 90 Respiratory Rate 12 16 Blood Pressure 135/67 120/62 Pulse Oximetry 96 98 95 09/22/18 15:15 09/22/18 15:30 09/22/18 19:57 Temperature 97.6 F Pulse Rate 92 H 92 H 66 Respiratory Rate 19 14 Blood Pressure 118/69 114/69 Pulse Oximetry 95 95 09/22/18 20:35 09/23/18 00:00 09/23/18 04:10 Temperature 97.2 F L 97.2 F L 97.5 F L Pulse Rate 73 84 71 Respiratory Rate 18 16 18 Blood Pressure 126/79 131/75 119/68 Pulse Oximetry 99 99 100 09/23/18 08:00 09/23/18 13:01 Temperature 97 F L 97.3 F L Pulse Rate 70 75 Respiratory Rate 18 18 Blood Pressure 116/74 113/66 Pulse Oximetry 99 98 Intake & Output 09/22/18 09/23/18 09/23/18 18:59 06:59 18:59 Intake Total 1250 / 1250 240 / 240 Output Total 150 / 150 1999 Balance 1100 / 1100 240 / 240 -1999 Weight 78.6 kg Intake: IV 50 / 50 Ancef 2 GM Premix Inj 2 gm In 50 / 50 50 ml @ 100 mls/hr IV.SIG ONCE ONE Rx#:[id number] Oral 240 / 240 Anesthesia Amount 1200 / 1200 Output: Hemodialysis Amount 1999 Estimated Blood Loss 150 / 150 Other: # Voids 0 Date of Last Bowel Movement 09/21/18 # Bowel Movements 0 <Varun Chisholm - Last Filed: 09/23/18 14:46> Assessment and Plan - Assessment (1) End-stage renal disease on hemodialysis Code(s): N18.6 - End stage renal disease; Z99.2 - Dependence on renal dialysis Status: Acute Plan: ESRD MWF Patient gets dialysis MWF, patient to be dialyzed tomorrow. Monitor fluid and electrolytes. Avoid nephrotoxic agents. Monitor phosphorus intermittently, patient is on a binder. Avoid BP measurements or blood draws in L arm, AVF. (2) GI bleed Code(s): K92.2 - Gastrointestinal hemorrhage, unspecified Status: Acute Plan: s/p EGD, results reviewed. GI on the case. Patient had endoscopic ultrasound today then had ERCP with sphincterotomy and balloon extraction and stent placement and biopsy. Cholecystectomy done today. (3) Afib Code(s): I48.91 - Unspecified atrial fibrillation Status: Acute Plan: On metoprolol. Coumadin can be restarted. <Lidia Gleason - Last Filed: 09/22/18 16:19> - Assessment (1) End-stage renal disease on hemodialysis Code(s): N18.6 - End stage renal disease; Z99.2 - Dependence on renal dialysis Status: Acute (2) GI bleed Code(s): K92.2 - Gastrointestinal hemorrhage, unspecified Status: Acute (3) Afib Code(s): I48.91 - Unspecified atrial fibrillation Status: Acute - Attending Attestation patient was seen and examined. Agree with above assessment and plan. <Varun Chisholm - Last Filed: 09/23/18 14:46>
--- NOTE | 2018-09-22 17:40 | MP ---
cc: Shaheen Castelan MD DATE OF OPERATION: 09/22/2018 PREOPERATIVE DIAGNOSIS: Choledocholithiasis, acute cholecystitis. POSTOPERATIVE DIAGNOSIS: Choledocholithiasis, acute cholecystitis. PROCEDURE PERFORMED: Laparoscopic cholecystectomy. SURGEON: Shaheen Castelan MD. MANAGER GROUP HOME: None. ANESTHESIA: GETA. FLUIDS: See anesthesia sheet. ESTIMATED BLOOD LOSS: 50 mL DRAINS: A 10-Yoruba ALBA drain. SPECIMENS: None. WOUND CLASSIFICATION: Clean/contaminated. SPECIMENS: Gallbladder. FINDINGS: Fatty liver, very hemorrhagic. Bleeding points controlled with the electro Bovie cautery and a surgical hemostatic agent. Gallbladder very fibrous, thickened, edematous and adhered to gallbladder fossa. INDICATION: The patient is a 63-year-old male who presented with abdominal pain. The patient had workup including ERCP with findings of choledocholithiasis and multiple gallstones. Decision was made for laparoscopic cholecystectomy. The patient had nephrology clearance and cardiac clearance and was off his anticoagulants. The patient was deemed an acceptable risk for operative intervention. DETAILS OF PROCEDURE: The patient was taken to the operating suite, placed in supine position, prepped and draped in the usual sterile fashion. After induction of general endotracheal anesthesia, a brief timeout was done stating the correct patient, procedure and surgical site. We were all in agreement with this. Attention was first directed to the umbilicus where local anesthetic was injected. Stab lanny incision was made. A 5 mm Optiview Visiport was done, entered the abdomen safely and on cursory inspection there was no evidence of injury. Three other ports were placed, including 12 mm epigastric port, followed by two 5 mm right subcostal ports. The patient was placed in reverse Trendelenburg, airplaned to the left. The gallbladder was very fibrous and edematous. The gallbladder fundus was grasped and retracted cephalad. Hook electric Bovie cautery and [place] were used to attempt to identify the cystic duct and cystic artery. This was very difficult, again due to the fibrous adhesion that was very dense. The patient was noted to have some bleeding from the liver from which hemostasis was obtained. A dome-down approach was done for the gallbladder. This was done with suction irrigation, hook Bovie cautery and [place]. The gallbladder was meticulously dissected off the gallbladder fossa, there was entrance into the gallbladder. Suction irrigation controlled all the bile. There was noted to be multiple black stones within the gallbladder. Very large. The stones were placed in an EndoCatch bag and removed from the abdomen. The gallbladder continued to be removed from the gallbladder fossa. Again, the liver was noted to be somewhat hemorrhagic and bleeding points were controlled. The gallbladder was dissected to a point that I felt was safe to ligate the gallbladder. Due to the thick fibrosis, my concern was going too distally and running into the common bile duct. Therefore, the gallbladder was ligated with a PDS Endoloops x2. Endo Stacey were used to transect the gallbladder. Gallbladder was placed in gallbladder EndoCatch bag and removed from the abdomen. Again, hemostasis was obtained with Surgicel powder and no anticoagulant. A 10-Yoruba flat Jef flat ALBA drain was placed, secured with 2-0 nylon. The pneumoperitoneum was removed. Ports were removed. Epigastric port was closed with 0 Vicryl [id number] to the fascia and 4-0 Monocryl to the subcuticular incisions. Steri-Strips and Mastisol were placed. The patient tolerated the procedure well. There were no complications. All lap and needle counts were correct at the end of the procedure. The patient was extubated and taken stable to the PACU. MD JANEL Green/phani , 04:45 PM , 04:54 PM
--- NOTE | 2018-09-22 17:54 | P.PN ---
Subjective Interval history: Follow up visit for GIB s/p esmere today. Patient seen and examined resting in bed in no acute distress. States abdominal pain is "so so". Denies any nausea , vomiting, cough, SOB, chest pain. Right upper quadrant drain with no output per nurse. Patient encouraged to eat liquid dinner to try and advance diet tomorrow. Physical Exam Vital signs: Vital Signs 09/21/18 21:49 09/22/18 01:08 09/22/18 04:43 Temperature 97.5 F L 98.3 F 97.8 F Pulse Rate 78 82 77 Respiratory Rate 22 17 16 Blood Pressure 120/72 122/71 126/70 Pulse Oximetry 94 L 93 L 96 09/22/18 08:00 09/22/18 14:27 09/22/18 14:30 Temperature 97.3 F L 97.3 F L Pulse Rate 72 99 H 97 H Respiratory Rate 16 15 13 Blood Pressure 124/77 118/81 121/67 Pulse Oximetry 91 L 98 99 09/22/18 14:45 09/22/18 15:00 09/22/18 15:12 Temperature Pulse Rate 100 H 95 H 90 Respiratory Rate 12 16 Blood Pressure 135/67 120/62 Pulse Oximetry 96 98 95 09/22/18 15:15 09/22/18 15:30 Temperature 97.6 F Pulse Rate 92 H 92 H Respiratory Rate 19 14 Blood Pressure 118/69 114/69 Pulse Oximetry 95 95 Intake & Output 09/21/18 09/22/18 09/22/18 18:59 06:59 18:59 Intake Total 260 / 260 1250 / 1250 Output Total 1999 150 / 150 Balance -1740 / -1740 1100 / 1100 Weight 75.9 kg Intake: IV 50 / 50 Ancef 2 GM Premix Inj 2 gm In 50 / 50 50 ml @ 100 mls/hr IV.SIG ONCE ONE Rx#:[id number] Oral 260 / 260 Anesthesia Amount 1200 / 1200 Output: Hemodialysis Amount 1999 Estimated Blood Loss 150 / 150 Other: # Voids 0 # Urine Diapers 1 Date of Last Bowel Movement 09/18/18 09/18/18 # Bowel Movements 0 Narrative: GENERAL: Well-developed, well-nourished male resting in bed in no acute distress. SKIN: Warm and dry. Bilateral lower extremity small scratches and scabs in various stages of healing, do not appear infected. HEAD: Atraumatic. Normocephalic. EYES: Pupils equal and round. No scleral icterus. No injection or drainage. ENT: No nasal bleeding or discharge. Mucous membranes pink and moist. NECK: Trachea midline. CARDIOVASCULAR: Irregular rhythm with 2/6 murmur. Left upper extremity fistula with positive bruit and thrill. RESPIRATORY: No accessory muscle use. Clear to auscultation. Breath sounds equal bilaterally. GASTROINTESTINAL: Abdomen soft, steri- strips dry, RUQ ALBA drain empty, + Bowel sounds. MUSCULOSKELETAL: Extremities without clubbing, cyanosis, or edema. No obvious deformities. NEUROLOGICAL: Awake, alert. No obvious cranial nerve deficits. Motor grossly within normal limits. Normal speech. PSYCHIATRIC: Appropriate mood and affect; insight and judgment normal. Results - Labs CBC & Chem 7: 09/22/18 14:11 09/21/18 09:50 Laboratory Results - last 24 hr 09/21/18 09/21/18 09/22/18 20:23 22:48 05:18 Hgb Hct PT 12.9 H INR 1.3 APTT 34.7 H POC Glucose 72 80 09/22/18 09/22/18 06:24 14:11 Hgb 12.7 L Hct 37.3 L PT INR APTT POC Glucose 94 Assessment and Plan - Assessment (1) End-stage renal disease on hemodialysis Code(s): N18.6 - End stage renal disease; Z99.2 - Dependence on renal dialysis Status: Acute (2) GI bleed Code(s): K92.2 - Gastrointestinal hemorrhage, unspecified Status: Acute (3) Afib Code(s): I48.91 - Unspecified atrial fibrillation Status: Acute - Plan This patient is a 63 y/o male with a dx of ESRD on MWF, a fib on coumadin, HTN, Last HD on Wednesday through left upper ext AVF. Patient says he has been having black stools for the past month but did not want to come to the hospital. Yesterday he had an episode of black diarrhea and decided to come into the ED for evaluation. He says he has also been feeling weak. In the ED he was found to be hypotensive. INR found to be supratherapeutic at 4.8. Supratherapeutic INR with likely Upper GI Bleed Cholelithiasis -Coumadin continues to be on hold secondary to recent GI bleed and possible cholecystectomy. -GI consulted, EGD done 09/13 -ulcer; biopsies taken. GI recommending no anticoagulation A. fib; risk of clot currently outweighs risk of bleed so anticoagulation was resumed. -s/p EUS and ERCP 09/19 status post placement of internal biliary stent. Biopsies taken with recommendations for cholecystectomy, diet advanced to clear liquids, will need ERCP in 3 months to remove stent, follow-up with GI and 3-4 weeks. -General surgery following, s/p lap-cholecystectomy today, clear liquid diet. Hypoglycemia -Recurrent secondary to n.p.o. status per -Patient with a history of ongoing hypoglycemia; may need endocrinology workup as outpatient -Blood sugar stable, D10 if not eating. A. fib with RVR 4 beat run of V. tach -Continue digoxin and BB. -Anticoagulated on Coumadin, continue to hold for GS eval and possible surgical intervention. -No cardiac complaints, continue to monitor. -Resume Coumadin when ok with GS. ESRD on HD -Nephrology following, appreciate assistance. - Plans for HD tomorrow Suspected polycythemia Vera -Hematology consulted by nephrology services. - Noah 2 mutation negative in the past, recheck pending. Hematology suspects polycythemia is reactive, no treatment indicated. -Hematology has signed off with follow-up as outpatient in 4-6 weeks. 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
--- NOTE | 2018-09-22 18:01 | P.PNCA ---
Subjective Interval history: Patient denies any CP, pressure, palpitations, dizziness, edema or SOB. Medications and Allergies Allergies Allergy/AdvReac Type Severity Reaction Status Date / Time bee venom protein (honey bee) Allergy Severe Anaphylaxis Verified 09/11/18 09:23 phenylephrine Allergy Severe Hives Verified 09/11/18 09:30 [From Contac-D Cold (PE)] Home Medications Medication Instructions Recorded Confirmed Type B complex-vitamin C-folic acid 1 tab PO DAILY 09/11/18 09/11/18 History [Jennifer-Phani] cephalexin 500 mg PO QID 09/11/18 09/11/18 History cinacalcet [Sensipar] 60 mg PO HS 09/11/18 09/11/18 History citalopram 20 mg PO DAILY 09/11/18 09/11/18 History digoxin 0.125 mg PO 4XW 09/11/18 09/11/18 History melatonin 3 mg PO HS PRN 09/11/18 09/11/18 History metoprolol tartrate 25 mg PO DAILY 09/11/18 09/11/18 History midodrine 10 mg PO 3XW 09/11/18 09/11/18 History sucroferric oxyhydroxide [Velphoro] 500 mg PO TID 09/11/18 09/11/18 History sulfamethoxazole-trimethoprim 1.5 tab PO BID 09/11/18 09/11/18 History warfarin 5 mg PO DAILY 09/11/18 09/11/18 History Active Medications: Active Medications Al Hydroxide/Mg Hydroxide (Milk Of Magnmagdalene Liq) 30 ml PO Q12H PRN PRN Reason: Mild Constipation Bisacodyl (Dulcolax Supp) 10 mg RECTAL DAILY PRN PRN Reason: SEVERE CONSITIPATION Cinacalcet (Sensipar) 60 mg PO DAILY [facility] Last Admin: 09/21/18 08:10 Dose: 60 mg Citalopram Hydrobromide (Celexa) 20 mg PO DAILY [facility] Last Admin: 09/21/18 08:09 Dose: 20 mg Clonidine HCl (Catapres) 0.1 mg PO UNSCH PRN PRN Reason: SEE LABEL COMMENTS Dextrose (D50w Vial) 50 ml IV.PUSH UNSCH PRN PRN Reason: PER HYPOGLYCEMIA PROTOCOL Last Admin: 09/18/18 16:21 Dose: 50 ml Digoxin (Lanoxin) 125 mcg PO DAILY [facility] Last Admin: 09/21/18 08:09 Dose: 125 mcg Diphenhydramine HCl (Benadryl) 25 mg PO UNSCH PRN PRN Reason: SEE LABEL COMMENTS Gelatin (Gelfoam 12 Mm/7 Mm Topical) 1 foam TOPICAL PRN PRN PRN Reason: help stop bleeding from site Last Admin: 09/18/18 16:25 Dose: 1 foam Gentamicin Sulfate (Gentamicin Inj) 20 mg OTHER WITH DIALYSIS PRN PRN Reason: Dwell Gentamycin Lock Heparin Sodium (Porcine) (Heparin Inj) 8,000 units OTHER WITH DIALYSIS PRN PRN Reason: for machine prime Heparin Sodium (Porcine) (Heparin Inj) 1,000 units OTHER WITH DIALYSIS PRN PRN Reason: Dwell Heparin to Fill Catheter Albumin Human (Flexbumin 25% Inj) 100 mls @ 60 mls/hr IV.SIG WITH DIALYSIS PRN PRN Reason: hypotension / volume replace Sodium Chloride (Ns Inj) 1,000 mls @ 0 mls/hr OTHER .Q0M PRN PRN Reason: for prime and rinse back Sodium Chloride (Ns Inj) 1,000 mls @ 200 mls/hr OTHER .Q5H PRN PRN Reason: for dialyzer flush PRN Sodium Chloride (Ns Inj) 1,000 mls @ 0 mls/hr IV.CONT .Q0M PRN PRN Reason: hypotension / volume replace Sodium Chloride (Ns Inj) 500 mls @ 30 mls/hr IV.SIG .Q10H [facility] Last Admin: 09/13/18 09:10 Dose: Not Given Dextrose (D10w Inj) 1,000 mls @ 42 mls/hr IV.CONT .[id number] [facility] Last Admin: 09/21/18 23:45 Dose: 42 mls/hr Lactated Ringer's (Lr 1000 Ml Inj) 1,000 mls @ 30 mls/hr IV.CONT .Q24H ONE Stop: 09/23/18 08:29 Sodium Chloride (Ns Inj) 500 mls @ 30 mls/hr IV.CONT .[id number] ONE Stop: 09/23/18 01:09 Last Admin: 09/22/18 08:38 Dose: 30 mls/hr Lactulose (Lactulose Liq) 30 ml PO DAILY PRN PRN Reason: SEVERE CONSITIPATION Mannitol (Mannitol Inj) 12.5 gm IV.PUSH UNSCH PRN PRN Reason: hypotension / volume replace Metoprolol Tartrate (Lopressor) 25 mg PO BID [facility] Last Admin: 09/22/18 07:59 Dose: 25 mg Midodrine (Proamatine) 10 mg PO MoWeFr [facility] Last Admin: 09/21/18 15:31 Dose: 10 mg Miscellaneous Information ([facility] Nursing Information) 0 each OTHER UNSCH PRN PRN Reason: SEE LABEL COMMENTS Stop: 09/23/18 14:28 Nitroglycerin (Nitrostat Sl) 0.4 mg SL Q5M PRN PRN Reason: CHEST PAIN Ondansetron HCl (Zofran Inj) 4 mg IV.PUSH UNSCH PRN PRN Reason: NAUSEA OR VOMITING Pantoprazole Sodium (Protonix Inj) 40 mg IV.PUSH Q12H [facility] Last Admin: 09/22/18 04:30 Dose: 40 mg Pharmacy Profile Note (Coumadin Consult Pharmacy) 1 each OTHER UNSCH PRN PRN Reason: PHARMACY DOCUMENTATION Senna/Docusate Sodium (Aparna-Colace) 1 tab PO BID [facility] Last Admin: 09/22/18 01:36 Dose: Not Given Sennosides (Senokot) 17.2 mg PO Q12H PRN PRN Reason: Moderate Constipation Sevelamer Carbonate (Renvela) 800 mg PO TIDAC [facility] Last Admin: 09/21/18 17:19 Dose: 800 mg Sodium Chloride (Ns Flush) 2 ml IV.FLUSH PRN PRN PRN Reason: FLUSH AFTER USING IV ACCESS Last Admin: 09/15/18 20:27 Dose: 2 ml Sodium Chloride (Ns Flush) 5 ml IV.FLUSH PRN PRN PRN Reason: flush each lumen during HD Last Admin: 09/16/18 03:23 Dose: 5 ml Warfarin Sodium (Coumadin) 1 mg PO DAILY@1600 [facility] Last Admin: 09/19/18 18:12 Dose: Not Given Physical Exam Vital signs: Vital Signs 09/21/18 21:49 09/22/18 01:08 09/22/18 04:43 Temperature 97.5 F L 98.3 F 97.8 F Pulse Rate 78 82 77 Respiratory Rate 22 17 16 Blood Pressure 120/72 122/71 126/70 Pulse Oximetry 94 L 93 L 96 09/22/18 08:00 09/22/18 14:27 09/22/18 14:30 Temperature 97.3 F L 97.3 F L Pulse Rate 72 99 H 97 H Respiratory Rate 16 15 13 Blood Pressure 124/77 118/81 121/67 Pulse Oximetry 91 L 98 99 09/22/18 14:45 09/22/18 15:00 09/22/18 15:12 Temperature Pulse Rate 100 H 95 H 90 Respiratory Rate 12 16 Blood Pressure 135/67 120/62 Pulse Oximetry 96 98 95 09/22/18 15:15 09/22/18 15:30 Temperature 97.6 F Pulse Rate 92 H 92 H Respiratory Rate 19 14 Blood Pressure 118/69 114/69 Pulse Oximetry 95 95 Intake & Output 09/21/18 09/22/18 09/22/18 18:59 06:59 18:59 Intake Total 260 / 260 1250 / 1250 Output Total 1999 150 / 150 Balance -1740 / -1740 1100 / 1100 Weight 75.9 kg Intake: IV 50 / 50 Ancef 2 GM Premix Inj 2 gm In 50 / 50 50 ml @ 100 mls/hr IV.SIG ONCE ONE Rx#:[id number] Oral 260 / 260 Anesthesia Amount 1200 / 1200 Output: Hemodialysis Amount 1999 Estimated Blood Loss 150 / 150 Other: # Voids 0 # Urine Diapers 1 Date of Last Bowel Movement 09/18/18 09/18/18 # Bowel Movements 0 - Constitutional no acute distress - Routine HEENT Exam Head: Present: normocephalic Eye: Present: PERRL ENT: Present: mucous membranes moist - Routine Neck Exam Present: full ROM - Routine Respiratory Exam Present: CTA bilaterally - Routine Cardiovascular Exam Present: S1, S2, murmur, irregular rhythm - Routine Abdominal Exam Present: normoactive bowel sounds, tenderness, wound Comments: s/p lab chol. - Routine Extremities Exam Present: full ROM, pulses intact, normal capillary refill. Absent: cyanosis, clubbing, edema - Routine Skin Exam Present: intact - Routine Neurological Exam Present: oriented X3 - Detailed Neurological Exam: Coma Scale Eye Opening: Spontaneous Verbal Response: Oriented Motor Response: Obey commands Ping Coma Scale Total: 15 - Routine Psychiatric Exam Present: normal affect Results 09/22/18 14:11 09/21/18 09:50 Coagulation 09/21/18 09/22/18 Range/Units 04:10 05:18 PT 13.2 H 12.9 H (9.8-11.6) sec APTT 34.7 H (23.4-31.7) sec CBC 09/21/18 09/22/18 Range/Units 09:50 14:11 WBC 6.2 (4.0-11.0) th/mm3 RBC 4.18 L (4.50-5.90) mil/mm3 Hgb 13.2 12.7 L (13.0-17.0) gm/dL Hct 39.8 37.3 L (39.0-51.0) % Plt Count 215 (150-450) th/mm3 Neut # (Auto) 4.9 (1.8-7.7) th/mm3 Lymph # (Auto) 0.6 L (1.0-4.8) th/mm3 [place] # (Auto) 0.5 (0.0-0.9) th/mm3 Eos # (Auto) 0.2 (0.0-0.4) th/mm3 Baso # (Auto) 0.0 (0.0-0.2) th/mm3 Comprehensive Metabolic Panel 09/21/18 Range/Units 09:50 Sodium 135 L (136-145) meq/L Potassium 5.3 H (3.5-5.1) meq/L Chloride 95 L (98-107) meq/L Carbon Dioxide 31.8 (21.0-32.0) meq/L BUN 56 H (7-18) mg/dL Creatinine 10.31 H* D (0.60-1.30) mg/dL Calcium 8.3 L (8.5-10.1) mg/dL Intake and Output 09/22/18 09/22/18 09/22/18 06:59 14:59 22:59 Intake Total 260 / 260 1250 / 1250 Output Total 150 / 150 Balance 260 / 260 1100 / 1100 Intake: IV 50 / 50 Ancef 2 GM Premix Inj 2 gm In 50 / 50 50 ml @ 100 mls/hr IV.SIG ONCE ONE Rx#:[id number] Oral 260 / 260 Anesthesia Amount 1200 / 1200 Output: Estimated Blood Loss 150 / 150 Other: # Urine Diapers 1 # Bowel Movements 0 Weight 75.9 kg Assessment and Plan - Assessment (1) GI bleed Code(s): K92.2 - Gastrointestinal hemorrhage, unspecified Status: Acute (2) End-stage renal disease on hemodialysis Code(s): N18.6 - End stage renal disease; Z99.2 - Dependence on renal dialysis Status: Acute (3) Hypertension Code(s): I10 - Essential (primary) hypertension Status: Acute (4) Afib Code(s): I48.91 - Unspecified atrial fibrillation Status: Acute (5) Polycythemia Code(s): D75.1 - Secondary polycythemia Status: Acute (6) Choledocholithiasis Code(s): K80.50 - Calculus of bile duct without cholangitis or cholecystitis without obstruction Status: Acute - Plan Patient is s/p lap. cholecystectomy, tolerated the surgery well. Nephrology evaluation in progress. Patient remains in atrial fibrillation with controlled VR. We will continue with current treatment plan including rate control. Restart anticoagulation when ok with GI and surgery. We will continue to monitor during his hospitalization. The patient was seen and evaluated by Dr. Guadarrama who participated in care, management and decision making. - Attending Attestation Patient seen and examined. I reviewed and agree with the evaluation and plan as presented. Tolerated the surgery well. Continue post op monitoring.
[2018-09-23] MEDS: Dextrose 10% in Water Inj 1,000 ML IV.CONT SCH ×3 (01:11→23:26)
[2018-09-23] MEDS ORDERED: Morphine Inj 4 MG/ML Vial IV.PUSH ONE (01:17)
[2018-09-23] MEDS: Pantoprazole Inj 40 MG Vial IV.PUSH SCH ×3 (04:03→15:59)
[2018-09-23 04:19] LABS: Baso % (Auto) 0.1 % (0.0-2.0); Hematocrit 38.5 % (39.0-51.0); Hemoglobin 13.1 gm/dL (13.0-17.0); Lymph # (Auto) 0.3 th/mm3 (1.0-4.8); Lymph % (Auto) 2.7 % (9.0-44.0); Mean Corpuscular HGB Conc 34.1 % (32.0-36.0); Mean Corpuscular Hemoglobin 32.2 pg (27.0-34.0); Mean Corpuscular Volume 94.6 fL (80.0-100.0); Mean Platelet Volume 7.4 fL (7.0-11.0); Mono # (Auto) 0.8 th/mm3 (0.0-0.9); Mono % (Auto) 7.4 % (0.0-8.0); Neut # (Auto) 9.2 th/mm3 (1.8-7.7); Neut % (Auto) 89.8 % (16.0-70.0); Platelet Count 186 th/mm3 (150-450); Red Blood Count 4.07 mil/mm3 (4.50-5.90); Red Cell Distribution Width 16.3 % (11.6-17.2); White Blood Count 10.3 th/mm3 (4.0-11.0)
[2018-09-23 04:28] LABS: INR 1.3 Ratio
[2018-09-23 04:46] LABS: Alanine Aminotransferase 29 U/L (12-78); Albumin 2.6 g/dL (3.4-5.0); Alkaline Phosphatase 119 U/L (45-117); Anion Gap 11 meq/L (5-15); Aspartate Aminotransferase 60 U/L (15-37); Blood Urea Nitrogen 40 mg/dL (7-18); Calcium 7.8 mg/dL (8.5-10.1); Carbon Dioxide 28.4 meq/L (21.0-32.0); Chloride 98 meq/L (98-107); Glomerular Filtration Rate 7 mL/min (>89); Glucose,Random 128 mg/dL (74-106); Potassium 4.9 meq/L (3.5-5.1); Sodium 137 meq/L (136-145); Total Protein 6.4 g/dL (6.4-8.2)
[2018-09-23] MEDS: Citalopram 20 MG Tablet PO SCH ×2 (06:51→14:52)
[2018-09-23] MEDS: Digoxin 125 MCG Tablet PO SCH ×2 (06:54→14:54)
[2018-09-23] MEDS: Senna/Docusate Sodium 8.6/50 MG Tablet PO SCH ×3 (06:55→20:41)
--- NOTE | 2018-09-23 07:20 | P.PNGS ---
Subjective Interval history: Resting in bed No complaints Pain controlled Physical Exam Vital signs: Vital Signs 09/22/18 08:00 09/22/18 14:27 09/22/18 14:30 Temperature 97.3 F L 97.3 F L Pulse Rate 72 99 H 97 H Respiratory Rate 16 15 13 Blood Pressure 124/77 118/81 121/67 Pulse Oximetry 91 L 98 99 09/22/18 14:45 09/22/18 15:00 09/22/18 15:12 Temperature Pulse Rate 100 H 95 H 90 Respiratory Rate 12 16 Blood Pressure 135/67 120/62 Pulse Oximetry 96 98 95 09/22/18 15:15 09/22/18 15:30 09/22/18 19:57 Temperature 97.6 F Pulse Rate 92 H 92 H 66 Respiratory Rate 19 14 Blood Pressure 118/69 114/69 Pulse Oximetry 95 95 09/22/18 20:35 09/23/18 00:00 09/23/18 04:10 Temperature 97.2 F L 97.2 F L 97.5 F L Pulse Rate 73 84 71 Respiratory Rate 18 16 18 Blood Pressure 126/79 131/75 119/68 Pulse Oximetry 99 99 100 Intake & Output 09/22/18 09/23/18 09/23/18 18:59 06:59 18:59 Intake Total 1250 / 1250 240 / 240 Output Total 150 / 150 Balance 1100 / 1100 240 / 240 Weight 78.6 kg Intake: IV 50 / 50 Ancef 2 GM Premix Inj 2 gm In 50 / 50 50 ml @ 100 mls/hr IV.SIG ONCE ONE Rx#:[id number] Oral 240 / 240 Anesthesia Amount 1200 / 1200 Output: Estimated Blood Loss 150 / 150 Other: # Voids 0 Date of Last Bowel Movement 09/21/18 # Bowel Movements 0 Narrative: Alert and awake Abd: soft; mild old bloody drainage at umbilicus; minimally tender to palpation ; ALBA with scant output LEFT AV fistula in place Results - Labs 09/23/18 03:07 09/23/18 03:07 Laboratory Results - last 24 hr 09/22/18 09/22/18 09/23/18 14:11 20:20 00:56 WBC RBC Hgb 12.7 L Hct 37.3 L MCV MCH MCHC RDW Plt Count MPV Neut % (Auto) Lymph % (Auto) [place] % (Auto) Eos % (Auto) Baso % (Auto) Neut # (Auto) Lymph # (Auto) [place] # (Auto) Eos # (Auto) Baso # (Auto) WBC Differential Differential Comment PT INR Sodium Potassium Chloride Carbon Dioxide Anion Gap BUN Creatinine Estimated GFR POC Glucose 140 H 143 H Random Glucose Calcium Total Bilirubin AST ALT Alkaline Phosphatase Total Protein Albumin 09/23/18 09/23/18 09/23/18 03:07 03:07 03:07 WBC 10.3 RBC 4.07 L Hgb 13.1 Hct 38.5 L MCV 94.6 MCH 32.2 MCHC 34.1 RDW 16.3 Plt Count 186 MPV 7.4 Neut % (Auto) 89.8 H Lymph % (Auto) 2.7 L [place] % (Auto) 7.4 Eos % (Auto) 0.0 Baso % (Auto) 0.1 Neut # (Auto) 9.2 H Lymph # (Auto) 0.3 L [place] # (Auto) 0.8 Eos # (Auto) 0.0 Baso # (Auto) 0.0 WBC Differential . Differential Comment Auto diff final PT 13.0 H INR 1.3 Sodium 137 Potassium 4.9 Chloride 98 Carbon Dioxide 28.4 Anion Gap 11 BUN 40 H Creatinine 8.36 H Estimated GFR 7 L POC Glucose Random Glucose 128 H Calcium 7.8 L Total Bilirubin 0.8 AST 60 H ALT 29 Alkaline Phosphatase 119 H Total Protein 6.4 Albumin 2.6 L - Imaging Imaging: ITS Impressions GI Procedure 09/19/18 00:00 CONCLUSION: Status post placement of an internal biliary stent. Assessment and Plan - Plan 63 year old male POD1 lap [place] -Advance diet as tolerated -HD per Nephrology -OOB as tolerated -Hold off on OAC at this time
--- NOTE | 2018-09-23 09:56 | P.PNNP ---
Subjective Interval history: Patient was seen during dialysis, on 2K, 350 ml/min, UF goal of 3 L. Patient gets dialysis MWF. Patient is s/p Cholecystectomy. <Lidia Gleason - Last Filed: 09/23/18 09:57> Physical Exam Vital signs: Vital Signs 09/22/18 14:27 09/22/18 14:30 09/22/18 14:45 Temperature 97.3 F L Pulse Rate 99 H 97 H 100 H Respiratory Rate 15 13 12 Blood Pressure 118/81 121/67 135/67 Pulse Oximetry 98 99 96 09/22/18 15:00 09/22/18 15:12 09/22/18 15:15 Temperature 97.6 F Pulse Rate 95 H 90 92 H Respiratory Rate 16 19 Blood Pressure 120/62 118/69 Pulse Oximetry 98 95 95 09/22/18 15:30 09/22/18 19:57 09/22/18 20:35 Temperature 97.2 F L Pulse Rate 92 H 66 73 Respiratory Rate 14 18 Blood Pressure 114/69 126/79 Pulse Oximetry 95 99 09/23/18 00:00 09/23/18 04:10 09/23/18 08:00 Temperature 97.2 F L 97.5 F L 97 F L Pulse Rate 84 71 70 Respiratory Rate 16 18 18 Blood Pressure 131/75 119/68 116/74 Pulse Oximetry 99 100 99 Intake & Output 09/22/18 09/23/18 09/23/18 18:59 06:59 18:59 Intake Total 1250 / 1250 240 / 240 Output Total 150 / 150 Balance 1100 / 1100 240 / 240 Weight 78.6 kg Intake: IV 50 / 50 Ancef 2 GM Premix Inj 2 gm In 50 / 50 50 ml @ 100 mls/hr IV.SIG ONCE ONE Rx#:[id number] Oral 240 / 240 Anesthesia Amount 1200 / 1200 Output: Estimated Blood Loss 150 / 150 Other: # Voids 0 Date of Last Bowel Movement 09/21/18 # Bowel Movements 0 - Constitutional no acute distress - Routine HEENT Exam Head: Present: normocephalic Eye: Present: EOMI ENT: Present: mucous membranes moist - Routine Neck Exam Present: trachea midline - Routine Respiratory Exam Absent: accessory muscle use, respiratory distress - Routine Abdominal Exam Present: soft, tenderness, drain - Routine Extremities Exam Present: AV fistula. Absent: edema - Routine Neurological Exam Present: alert - Routine Psychiatric Exam Present: normal affect <VictorinoLidia - Last Filed: 09/23/18 09:57> Vital signs: Vital Signs 09/22/18 15:00 09/22/18 15:12 09/22/18 15:15 Temperature 97.6 F Pulse Rate 95 H 90 92 H Respiratory Rate 16 19 Blood Pressure 120/62 118/69 Pulse Oximetry 98 95 95 09/22/18 15:30 09/22/18 19:57 09/22/18 20:35 Temperature 97.2 F L Pulse Rate 92 H 66 73 Respiratory Rate 14 18 Blood Pressure 114/69 126/79 Pulse Oximetry 95 99 09/23/18 00:00 09/23/18 04:10 09/23/18 08:00 Temperature 97.2 F L 97.5 F L 97 F L Pulse Rate 84 71 70 Respiratory Rate 16 18 18 Blood Pressure 131/75 119/68 116/74 Pulse Oximetry 99 100 99 09/23/18 13:01 Temperature 97.3 F L Pulse Rate 75 Respiratory Rate 18 Blood Pressure 113/66 Pulse Oximetry 98 Intake & Output 09/22/18 09/23/18 09/23/18 18:59 06:59 18:59 Intake Total 1250 / 1250 240 / 240 Output Total 150 / 150 1999 Balance 1100 / 1100 240 / 240 -1999 Weight 78.6 kg Intake: IV 50 / 50 Ancef 2 GM Premix Inj 2 gm In 50 / 50 50 ml @ 100 mls/hr IV.SIG ONCE ONE Rx#:[id number] Oral 240 / 240 Anesthesia Amount 1200 / 1200 Output: Hemodialysis Amount 1999 Estimated Blood Loss 150 / 150 Other: # Voids 0 Date of Last Bowel Movement 09/21/18 # Bowel Movements 0 <Varun Chisholm - Last Filed: 09/23/18 14:49> Assessment and Plan - Assessment (1) End-stage renal disease on hemodialysis Code(s): N18.6 - End stage renal disease; Z99.2 - Dependence on renal dialysis Status: Acute Plan: ESRD MWF Patient was seen during dialysis, on 2K, 350 ml/min, UF goal of 3 L. Patient gets dialysis MWF. Monitor fluid and electrolytes. Avoid nephrotoxic agents. Monitor phosphorus intermittently, patient is on a binder. Avoid BP measurements or blood draws in L arm, AVF. (2) GI bleed Code(s): K92.2 - Gastrointestinal hemorrhage, unspecified Status: Acute Plan: s/p EGD, results reviewed. GI on the case. Patient had endoscopic ultrasound today then had ERCP with sphincterotomy and balloon extraction and stent placement and biopsy. Cholecystectomy done yesterday. (3) Afib Code(s): I48.91 - Unspecified atrial fibrillation Status: Acute Plan: On metoprolol. Coumadin can be restarted. <Lidia Gleason - Last Filed: 09/23/18 09:57> - Assessment (1) End-stage renal disease on hemodialysis Code(s): N18.6 - End stage renal disease; Z99.2 - Dependence on renal dialysis Status: Acute (2) GI bleed Code(s): K92.2 - Gastrointestinal hemorrhage, unspecified Status: Acute (3) Afib Code(s): I48.91 - Unspecified atrial fibrillation Status: Acute - Attending Attestation patient was seen and examined. Restart Coumadin when cleared by surgery. Dialysis MWF. <Varun Chisholm - Last Filed: 09/23/18 14:49>
[2018-09-23] MEDS: Gelatin 12 MM/7 MM Topical Foam TOPICAL PRN (10:38)
[2018-09-23] MEDS: Metoprolol Tartrate 25 MG Tablet PO SCH ×2 (14:52→20:41)
--- NOTE | 2018-09-23 15:09 | P.PN ---
Subjective Interval history: Follow-up visit status post cholecystectomy yesterday. Patient seen and examined sitting up in chair in no acute distress. States that his abdominal pain is also, tolerating diet without any nausea, vomiting. Right upper quadrant ALBA drain still with no drainage. Patient denies any fevers, chills, cough, shortness of breath or chest pain. Asking how much longer he will be in the hospital, discussed his Coumadin is still on hold until cleared by general surgery. Physical Exam Vital signs: Vital Signs 09/22/18 15:12 09/22/18 15:15 09/22/18 15:30 Temperature 97.6 F Pulse Rate 90 92 H 92 H Respiratory Rate 19 14 Blood Pressure 118/69 114/69 Pulse Oximetry 95 95 95 09/22/18 19:57 09/22/18 20:35 09/23/18 00:00 Temperature 97.2 F L 97.2 F L Pulse Rate 66 73 84 Respiratory Rate 18 16 Blood Pressure 126/79 131/75 Pulse Oximetry 99 99 09/23/18 04:10 09/23/18 08:00 09/23/18 13:01 Temperature 97.5 F L 97 F L 97.3 F L Pulse Rate 71 70 75 Respiratory Rate 18 18 18 Blood Pressure 119/68 116/74 113/66 Pulse Oximetry 100 99 98 Intake & Output 09/22/18 09/23/18 09/23/18 18:59 06:59 18:59 Intake Total 1250 / 1250 240 / 240 Output Total 150 / 150 1999 Balance 1100 / 1100 240 / 240 -1999 Weight 78.6 kg Intake: IV 50 / 50 Ancef 2 GM Premix Inj 2 gm In 50 / 50 50 ml @ 100 mls/hr IV.SIG ONCE ONE Rx#:[id number] Oral 240 / 240 Anesthesia Amount 1200 / 1200 Output: Hemodialysis Amount 1999 Estimated Blood Loss 150 / 150 Other: # Voids 0 Date of Last Bowel Movement 09/21/18 # Bowel Movements 0 Narrative: GENERAL: Well-developed, well-nourished male up to the chair. SKIN: Warm and dry. Bilateral lower extremity small scratches and scabs in various stages of healing, do not appear infected. HEAD: Atraumatic. Normocephalic. EYES: Pupils equal and round. No scleral icterus. No injection or drainage. ENT: No nasal bleeding or discharge. Mucous membranes pink and moist. NECK: Trachea midline. CARDIOVASCULAR: Irregular rhythm with 2/6 murmur. Left upper extremity fistula with positive bruit and thrill. RESPIRATORY: No accessory muscle use. Clear to auscultation. Breath sounds equal bilaterally. GASTROINTESTINAL: Abdomen soft, steri- strips dry, RUQ ALBA drain empty, + Bowel sounds. MUSCULOSKELETAL: Extremities without clubbing, cyanosis, or edema. No obvious deformities. NEUROLOGICAL: Awake, alert. No obvious cranial nerve deficits. Motor grossly within normal limits. Normal speech. PSYCHIATRIC: Appropriate mood and affect; insight and judgment normal. Results - Labs CBC & Chem 7: 09/23/18 03:07 09/23/18 03:07 Laboratory Results - last 24 hr 09/22/18 09/23/18 09/23/18 20:20 00:56 03:07 WBC RBC Hgb Hct MCV MCH MCHC RDW Plt Count MPV Neut % (Auto) Lymph % (Auto) [place] % (Auto) Eos % (Auto) Baso % (Auto) Neut # (Auto) Lymph # (Auto) [place] # (Auto) Eos # (Auto) Baso # (Auto) WBC Differential Differential Comment PT INR Sodium 137 Potassium 4.9 Chloride 98 Carbon Dioxide 28.4 Anion Gap 11 BUN 40 H Creatinine 8.36 H Estimated GFR 7 L POC Glucose 140 H 143 H Random Glucose 128 H Calcium 7.8 L Total Bilirubin 0.8 AST 60 H ALT 29 Alkaline Phosphatase 119 H Total Protein 6.4 Albumin 2.6 L 09/23/18 09/23/18 09/23/18 03:07 03:07 07:48 WBC 10.3 RBC 4.07 L Hgb 13.1 Hct 38.5 L MCV 94.6 MCH 32.2 MCHC 34.1 RDW 16.3 Plt Count 186 MPV 7.4 Neut % (Auto) 89.8 H Lymph % (Auto) 2.7 L [place] % (Auto) 7.4 Eos % (Auto) 0.0 Baso % (Auto) 0.1 Neut # (Auto) 9.2 H Lymph # (Auto) 0.3 L [place] # (Auto) 0.8 Eos # (Auto) 0.0 Baso # (Auto) 0.0 WBC Differential . Differential Comment Auto diff final PT 13.0 H INR 1.3 Sodium Potassium Chloride Carbon Dioxide Anion Gap BUN Creatinine Estimated GFR POC Glucose 115 H Random Glucose Calcium Total Bilirubin AST ALT Alkaline Phosphatase Total Protein Albumin 09/23/18 11:17 WBC RBC Hgb Hct MCV MCH MCHC RDW Plt Count MPV Neut % (Auto) Lymph % (Auto) [place] % (Auto) Eos % (Auto) Baso % (Auto) Neut # (Auto) Lymph # (Auto) [place] # (Auto) Eos # (Auto) Baso # (Auto) WBC Differential Differential Comment PT INR Sodium Potassium Chloride Carbon Dioxide Anion Gap BUN Creatinine Estimated GFR POC Glucose 95 Random Glucose Calcium Total Bilirubin AST ALT Alkaline Phosphatase Total Protein Albumin Assessment and Plan - Assessment (1) End-stage renal disease on hemodialysis Code(s): N18.6 - End stage renal disease; Z99.2 - Dependence on renal dialysis Status: Acute (2) GI bleed Code(s): K92.2 - Gastrointestinal hemorrhage, unspecified Status: Acute (3) Afib Code(s): I48.91 - Unspecified atrial fibrillation Status: Acute - Plan This patient is a 63 y/o male with a dx of ESRD on MWF, a fib on coumadin, HTN, Last HD on Wednesday through left upper ext AVF. Patient says he has been having black stools for the past month but did not want to come to the hospital. Yesterday he had an episode of black diarrhea and decided to come into the ED for evaluation. He says he has also been feeling weak. In the ED he was found to be hypotensive. INR found to be supratherapeutic at 4.8. Supratherapeutic INR with likely Upper GI Bleed Cholelithiasis -Coumadin continues to be on hold secondary to recent GI bleed and possible cholecystectomy. -GI consulted, EGD done 09/13 -ulcer; biopsies taken. GI recommending no anticoagulation A. fib; risk of clot currently outweighs risk of bleed so anticoagulation was resumed. -s/p EUS and ERCP 09/19 status post placement of internal biliary stent. Biopsies taken with recommendations for cholecystectomy, diet advanced to clear liquids, will need ERCP in 3 months to remove stent, follow-up with GI and 3-4 weeks. -General surgery following, s/p lap-cholecystectomy 09/22, diet advanced, no N/V /D, or pain. Hypoglycemia, recurrent -Patient with a history of ongoing hypoglycemia; may need endocrinology workup as outpatient -Blood sugar stable, D10 until able to tolerate diet. A. fib, rate controlled -Continue digoxin and BB. -Anticoagulated on Coumadin, continue to hold until cleared by GS to resume. -No cardiac complaints, continue to monitor. ESRD on HD -Nephrology following, appreciate assistance. 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 - Noah 2 mutation negative in the past, recheck pending. Hematology suspects polycythemia is reactive, no treatment indicated. -Hematology has signed off with follow-up as outpatient in 4-6 weeks. 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
--- NOTE | 2018-09-23 16:52 | P.PNCA ---
Subjective Interval history: Patient denies any CP, pressure, palpitations, dizziness, edema or SOB. Patient states he feels a little better today. Medications and Allergies Allergies Allergy/AdvReac Type Severity Reaction Status Date / Time bee venom protein (honey bee) Allergy Severe Anaphylaxis Verified 09/11/18 09:23 phenylephrine Allergy Severe Hives Verified 09/11/18 09:30 [From Contac-D Cold (PE)] Home Medications Medication Instructions Recorded Confirmed Type B complex-vitamin C-folic acid 1 tab PO DAILY 09/11/18 09/11/18 History [Jennifer-Phani] cephalexin 500 mg PO QID 09/11/18 09/11/18 History cinacalcet [Sensipar] 60 mg PO HS 09/11/18 09/11/18 History citalopram 20 mg PO DAILY 09/11/18 09/11/18 History digoxin 0.125 mg PO 4XW 09/11/18 09/11/18 History melatonin 3 mg PO HS PRN 09/11/18 09/11/18 History metoprolol tartrate 25 mg PO DAILY 09/11/18 09/11/18 History midodrine 10 mg PO 3XW 09/11/18 09/11/18 History sucroferric oxyhydroxide [Velphoro] 500 mg PO TID 09/11/18 09/11/18 History sulfamethoxazole-trimethoprim 1.5 tab PO BID 09/11/18 09/11/18 History warfarin 5 mg PO DAILY 09/11/18 09/11/18 History Active Medications: Active Medications Al Hydroxide/Mg Hydroxide (Milk Of Magnmagdalene Liq) 30 ml PO Q12H PRN PRN Reason: Mild Constipation Bisacodyl (Dulcolax Supp) 10 mg RECTAL DAILY PRN PRN Reason: SEVERE CONSITIPATION Cinacalcet (Sensipar) 60 mg PO DAILY [facility] Last Admin: 09/23/18 14:52 Dose: Not Given Citalopram Hydrobromide (Celexa) 20 mg PO DAILY [facility] Last Admin: 09/23/18 14:52 Dose: Not Given Clonidine HCl (Catapres) 0.1 mg PO UNSCH PRN PRN Reason: SEE LABEL COMMENTS Dextrose (D50w Vial) 50 ml IV.PUSH UNSCH PRN PRN Reason: PER HYPOGLYCEMIA PROTOCOL Last Admin: 09/18/18 16:21 Dose: 50 ml Digoxin (Lanoxin) 125 mcg PO DAILY [facility] Last Admin: 09/23/18 14:54 Dose: Not Given Diphenhydramine HCl (Benadryl) 25 mg PO UNSCH PRN PRN Reason: SEE LABEL COMMENTS Gelatin (Gelfoam 12 Mm/7 Mm Topical) 1 foam TOPICAL PRN PRN PRN Reason: help stop bleeding from site Last Admin: 09/23/18 10:38 Dose: 1 foam Gentamicin Sulfate (Gentamicin Inj) 20 mg OTHER WITH DIALYSIS PRN PRN Reason: Dwell Gentamycin Lock Heparin Sodium (Porcine) (Heparin Inj) 8,000 units OTHER WITH DIALYSIS PRN PRN Reason: for machine prime Heparin Sodium (Porcine) (Heparin Inj) 1,000 units OTHER WITH DIALYSIS PRN PRN Reason: Dwell Heparin to Fill Catheter Albumin Human (Flexbumin 25% Inj) 100 mls @ 60 mls/hr IV.SIG WITH DIALYSIS PRN PRN Reason: hypotension / volume replace Sodium Chloride (Ns Inj) 1,000 mls @ 0 mls/hr OTHER .Q0M PRN PRN Reason: for prime and rinse back Last Admin: 09/23/18 10:37 Dose: 200 mls/hr Sodium Chloride (Ns Inj) 1,000 mls @ 200 mls/hr OTHER .Q5H PRN PRN Reason: for dialyzer flush PRN Sodium Chloride (Ns Inj) 1,000 mls @ 0 mls/hr IV.CONT .Q0M PRN PRN Reason: hypotension / volume replace Sodium Chloride (Ns Inj) 500 mls @ 30 mls/hr IV.SIG .Q10H [facility] Last Admin: 09/13/18 09:10 Dose: Not Given Dextrose (D10w Inj) 1,000 mls @ 42 mls/hr IV.CONT .[id number] [facility] Last Admin: 09/23/18 06:08 Dose: 42 mls/hr Lactulose (Lactulose Liq) 30 ml PO DAILY PRN PRN Reason: SEVERE CONSITIPATION Mannitol (Mannitol Inj) 12.5 gm IV.PUSH UNSCH PRN PRN Reason: hypotension / volume replace Metoprolol Tartrate (Lopressor) 25 mg PO BID [facility] Last Admin: 09/23/18 14:52 Dose: Not Given Midodrine (Proamatine) 10 mg PO MoWeFr [facility] Last Admin: 09/23/18 15:57 Dose: 10 mg Nitroglycerin (Nitrostat Sl) 0.4 mg SL Q5M PRN PRN Reason: CHEST PAIN Ondansetron HCl (Zofran Inj) 4 mg IV.PUSH UNSCH PRN PRN Reason: NAUSEA OR VOMITING Oxycodone/Acetaminophen (Percocet 5/325 Mg) 1 tab PO Q6H PRN PRN Reason: Pain 2-10 Last Admin: 09/23/18 15:57 Dose: 1 tab Pantoprazole Sodium (Protonix Inj) 40 mg IV.PUSH Q12H [facility] Last Admin: 09/23/18 15:59 Dose: 40 mg Pharmacy Profile Note (Coumadin Consult Pharmacy) 1 each OTHER UNSCH PRN PRN Reason: PHARMACY DOCUMENTATION Senna/Docusate Sodium (Aparna-Colace) 1 tab PO BID [facility] Last Admin: 09/23/18 14:52 Dose: Not Given Sennosides (Senokot) 17.2 mg PO Q12H PRN PRN Reason: Moderate Constipation Sevelamer Carbonate (Renvela) 800 mg PO TIDAC [facility] Last Admin: 09/23/18 15:59 Dose: 800 mg Sodium Chloride (Ns Flush) 2 ml IV.FLUSH PRN PRN PRN Reason: FLUSH AFTER USING IV ACCESS Last Admin: 09/15/18 20:27 Dose: 2 ml Sodium Chloride (Ns Flush) 5 ml IV.FLUSH PRN PRN PRN Reason: flush each lumen during HD Last Admin: 09/16/18 03:23 Dose: 5 ml Warfarin Sodium (Coumadin) 1 mg PO DAILY@1600 [facility] Last Admin: 09/19/18 18:12 Dose: Not Given Physical Exam Vital signs: Vital Signs 09/22/18 19:57 09/22/18 20:35 09/23/18 00:00 Temperature 97.2 F L 97.2 F L Pulse Rate 66 73 84 Respiratory Rate 18 16 Blood Pressure 126/79 131/75 Pulse Oximetry 99 99 09/23/18 04:10 09/23/18 08:00 09/23/18 13:01 Temperature 97.5 F L 97 F L 97.3 F L Pulse Rate 71 70 75 Respiratory Rate 18 18 18 Blood Pressure 119/68 116/74 113/66 Pulse Oximetry 100 99 98 09/23/18 16:00 Temperature 97.4 F L Pulse Rate 83 Respiratory Rate 18 Blood Pressure 111/65 Pulse Oximetry 99 Intake & Output 09/22/18 09/23/18 09/23/18 18:59 06:59 18:59 Intake Total 1250 / 1250 240 / 240 Output Total 150 / 150 1999 Balance 1100 / 1100 240 / 240 -1999 Weight 78.6 kg Intake: IV 50 / 50 Ancef 2 GM Premix Inj 2 gm In 50 / 50 50 ml @ 100 mls/hr IV.SIG ONCE ONE Rx#:[id number] Oral 240 / 240 Anesthesia Amount 1200 / 1200 Output: Hemodialysis Amount 1999 Estimated Blood Loss 150 / 150 Other: # Voids 0 Date of Last Bowel Movement 09/21/18 # Bowel Movements 0 - Constitutional no acute distress - Routine HEENT Exam Head: Present: normocephalic Eye: Present: PERRL ENT: Present: mucous membranes moist - Routine Neck Exam Present: full ROM - Routine Respiratory Exam Present: CTA bilaterally - Routine Cardiovascular Exam Present: S1, S2, murmur. Absent: gallop, rubs - Routine Abdominal Exam Present: normoactive bowel sounds - Routine Extremities Exam Present: full ROM, pulses intact, normal capillary refill. Absent: cyanosis, clubbing - Routine Skin Exam Present: intact - Routine Neurological Exam Present: oriented X3 - Detailed Neurological Exam: Coma Scale Eye Opening: Spontaneous Verbal Response: Oriented Motor Response: Obey commands Kelly Coma Scale Total: 15 - Routine Psychiatric Exam Present: normal affect Results 09/23/18 03:07 09/23/18 03:07 Cardiac Enzymes 09/23/18 Range/Units 03:07 AST 60 H (15-37) U/L Coagulation 09/22/18 09/23/18 Range/Units 05:18 03:07 PT 12.9 H 13.0 H (9.8-11.6) sec APTT 34.7 H (23.4-31.7) sec CBC 09/22/18 09/23/18 Range/Units 14:11 03:07 WBC 10.3 (4.0-11.0) th/mm3 RBC 4.07 L (4.50-5.90) mil/mm3 Hgb 12.7 L 13.1 (13.0-17.0) gm/dL Hct 37.3 L 38.5 L (39.0-51.0) % Plt Count 186 (150-450) th/mm3 Neut # (Auto) 9.2 H (1.8-7.7) th/mm3 Lymph # (Auto) 0.3 L (1.0-4.8) th/mm3 [place] # (Auto) 0.8 (0.0-0.9) th/mm3 Eos # (Auto) 0.0 (0.0-0.4) th/mm3 Baso # (Auto) 0.0 (0.0-0.2) th/mm3 Comprehensive Metabolic Panel 09/23/18 Range/Units 03:07 Sodium 137 (136-145) meq/L Potassium 4.9 (3.5-5.1) meq/L Chloride 98 (98-107) meq/L Carbon Dioxide 28.4 (21.0-32.0) meq/L BUN 40 H (7-18) mg/dL Creatinine 8.36 H (0.60-1.30) mg/dL Calcium 7.8 L (8.5-10.1) mg/dL AST 60 H (15-37) U/L ALT 29 (12-78) U/L Alkaline Phosphatase 119 H (45-117) U/L Total Protein 6.4 (6.4-8.2) g/dL Albumin 2.6 L (3.4-5.0) g/dL Intake and Output 09/23/18 09/23/18 09/23/18 06:59 14:59 22:59 Intake Total 240 / 240 Output Total 1999 Balance 240 / 240 -1999 Intake: Oral 240 / 240 Output: Hemodialysis Amount 1999 Other: # Voids 0 # Bowel Movements 0 Weight 78.6 kg Assessment and Plan - Assessment (1) GI bleed Code(s): K92.2 - Gastrointestinal hemorrhage, unspecified Status: Acute (2) End-stage renal disease on hemodialysis Code(s): N18.6 - End stage renal disease; Z99.2 - Dependence on renal dialysis Status: Acute (3) Hypertension Code(s): I10 - Essential (primary) hypertension Status: Acute (4) Afib Code(s): I48.91 - Unspecified atrial fibrillation Status: Acute (5) Polycythemia Code(s): D75.1 - Secondary polycythemia Status: Acute (6) Choledocholithiasis Code(s): K80.50 - Calculus of bile duct without cholangitis or cholecystitis without obstruction Status: Acute - Plan There are no new cardiac issues noted at this time. Patient remains in atrial fibrillation with controlled VR. Patient received HD today, nephrology evaluation in progress. We will continue with the current cardiac treatment plan and adjust as needed. Restart anticoagulation when ok with GI and surgery. The patient was seen and evaluated by Dr. Guadarrama who participated in care, management and decision making. - Attending Attestation Patient seen and examined. I reviewed and agree with the evaluation and plan as presented. Continue current program. Restart anticoagulation. Increase activity , PT.
[2018-09-24] MEDS: Pantoprazole Inj 40 MG Vial IV.PUSH SCH ×2 (03:32→16:56)
[2018-09-24 05:33] LABS: INR 1.5 Ratio; Prothrombin Time 14.7 sec (9.8-11.6)
[2018-09-24] MEDS: Digoxin 125 MCG Tablet PO SCH (08:46)
[2018-09-24] MEDS: Citalopram 20 MG Tablet PO SCH (08:46)
[2018-09-24] MEDS: Senna/Docusate Sodium 8.6/50 MG Tablet PO SCH ×2 (08:46→21:01)
[2018-09-24] MEDS: Metoprolol Tartrate 25 MG Tablet PO SCH ×2 (08:46→21:01)
--- NOTE | 2018-09-24 10:26 | P.PNGS ---
Subjective Patient reports: feels better, still having pain, pain is less, no bowel movement, afebrile Physical Exam Vital signs: Vital Signs 09/23/18 13:01 09/23/18 16:00 09/23/18 19:50 Temperature 97.3 F L 97.4 F L 98.4 F Pulse Rate 75 83 94 H Respiratory Rate 18 18 18 Blood Pressure 113/66 111/65 120/72 Pulse Oximetry 98 99 98 09/23/18 20:00 09/23/18 20:40 09/23/18 23:35 Temperature 97.8 F Pulse Rate 70 75 Respiratory Rate 18 Blood Pressure 113/65 Pulse Oximetry 98 95 09/24/18 00:00 09/24/18 03:45 09/24/18 04:00 Temperature 97.8 F Pulse Rate 67 73 75 Respiratory Rate 18 Blood Pressure 112/65 Pulse Oximetry 98 09/24/18 06:00 09/24/18 08:00 Temperature 97.2 F L Pulse Rate 73 Respiratory Rate 18 Blood Pressure 121/65 Pulse Oximetry 95 95 Intake & Output 09/23/18 09/24/18 09/24/18 18:59 06:59 18:59 Intake Total 840 / 840 700 / 700 Output Total 1999 0 / 0 Balance -1160 / -1160 700 / 700 Weight 76 kg Intake: IV 400 / 400 600 / 600 D10W Inj 1,000 ML @ 42 mls/hr 400 / 400 600 / 600 IV.CONT .[id number] [facility] Rx#: [id number] Oral 440 / 440 100 / 100 Output: Hemodialysis Amount 1999 Wound Drainage 0 / 0 # 1 Abdomen 0 / 0 Other: # Voids 0 0 Date of Last Bowel Movement 09/21/18 # Bowel Movements 0 0 - Routine Abdominal Exam Present: soft, normoactive bowel sounds, tenderness, wound, drain Comments: drain empty, not working at all Results - Labs 09/23/18 03:07 09/23/18 03:07 Laboratory Results - last 24 hr 09/23/18 09/23/18 09/24/18 11:17 18:43 00:10 PT INR POC Glucose 95 82 79 09/24/18 09/24/18 05:08 06:41 PT 14.7 H INR 1.5 POC Glucose 77 - Imaging Imaging: ITS Impressions GI Procedure 09/19/18 00:00 CONCLUSION: Status post placement of an internal biliary stent. Assessment and Plan - Plan POD 2 lap carlton will remove ALBA as it is not working at all RN reports poor po intake - consider suppliments? boost? ensure? labs stable can likely resume coumadin soon as it takes 4 days to get back to therapeutic levels
--- NOTE | 2018-09-24 15:29 | P.PNIM ---
Subjective Interval history: Follow up status post cholecystectomy Patient seen and examined while resting in bed. He has his meal tray in front of him but has not eaten much. RN reports patient had a banana this morning but has not been eating much at all afterwards. Patient denies abdominal pain, nausea or vomiting. No cough, fevers or chills. Physical Exam Vital signs: Last Vital Signs Temp 97.7 F 09/24/18 12:00 Pulse 68 09/24/18 12:00 Resp 18 09/24/18 12:00 BP 115/55 L 09/24/18 12:00 Pulse Ox 98 09/24/18 12:00 Intake & Output 09/22/18 09/23/18 09/24/18 09/25/18 06:59 06:59 06:59 06:59 Intake Total 760 / 760 1490 / 1490 1540 / 1540 Output Total 1999 150 / 150 1999 Balance -1240 / -1240 1340 / 1340 -460 / -460 Weight 75.9 kg 78.6 kg 76 kg Narrative: GENERAL: Well-developed, well-nourished male, no acute distress SKIN: Warm and dry. Bilateral lower extremity small scratches and scabs in various stages of healing, do not appear infected. HEAD: Atraumatic. Normocephalic. EYES: Pupils equal and round. No scleral icterus. No injection or drainage. ENT: No nasal bleeding or discharge. Mucous membranes pink and moist. NECK: Trachea midline. CARDIOVASCULAR: Irregular rhythm with 2/6 murmur. Left upper extremity fistula with positive bruit and thrill. RESPIRATORY: No accessory muscle use. Clear to auscultation. Breath sounds equal bilaterally. GASTROINTESTINAL: Abdomen soft, steri- strips dry, RUQ ALBA drain empty, + Bowel sounds. MUSCULOSKELETAL: Extremities without clubbing, cyanosis, or edema. No obvious deformities. NEUROLOGICAL: Awake, alert. No obvious cranial nerve deficits. Motor grossly within normal limits. Normal speech. PSYCHIATRIC: Appropriate mood and affect; insight and judgment normal. Results Labs CBC & Chem 7: 09/23/18 03:07 09/23/18 03:07 Assessment and Plan (1) GI bleed: Code(s): K92.2 - Gastrointestinal hemorrhage, unspecified Status: Acute (2) End-stage renal disease on hemodialysis: Code(s): N18.6 - End stage renal disease; Z99.2 - Dependence on renal dialysis Status: Acute (3) Hypertension: Code(s): I10 - Essential (primary) hypertension Status: Acute (4) Afib: Code(s): I48.91 - Unspecified atrial fibrillation Status: Acute (5) Polycythemia: Code(s): D75.1 - Secondary polycythemia Status: Acute (6) Choledocholithiasis: Code(s): K80.50 - Calculus of bile duct without cholangitis or cholecystitis without obstruction Status: Acute Plan This patient is a 63 y/o male with a dx of ESRD on MWF, a fib on coumadin, HTN, Last HD on Wednesday through left upper ext AVF. Patient says he has been having black stools for the past month but did not want to come to the hospital. Yesterday he had an episode of black diarrhea and decided to come into the ED for evaluation. He says he has also been feeling weak. In the ED he was found to be hypotensive. INR found to be supratherapeutic at 4.8. Supratherapeutic INR with likely Upper GI Bleed -GI consulted, EGD done 09/13 -ulcer; biopsies taken. GI recommending no anticoagulation A. fib; risk of clot currently outweighs risk of bleed so anticoagulation was resumed. -s/p EUS and ERCP 09/19 status post placement of internal biliary stent. Biopsies taken with recommendations for cholecystectomy, diet advanced to clear liquids, will need ERCP in 3 months to remove stent, follow-up with GI in 3-4 weeks. -INR 1.5 -Coumadin dosing per pharmacy Cholelithiasis -General surgery following, s/p lap-cholecystectomy 09/22, diet advanced, no N/V /D, or pain -J/P to be removed today Poor PO intake -Nepro supplementation with meal trays Hypoglycemia, recurrent -Patient with a history of ongoing hypoglycemia; may need endocrinology workup as outpatient -Blood sugars 70-80's, monitor closely as patient currently with poor PO intake -may need to restart IV fluids if BS continues to drop A. fib, rate controlled -Continue digoxin and BB. -Anticoagulated on Coumadin, pharmacy to dose and monitor -No cardiac complaints, continue to monitor. ESRD on HD -Nephrology following, appreciate assistance. 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 -Noah 2 mutation negative in the past, recheck pending. Hematology suspects polycythemia is reactive, no treatment indicated. -Hematology has signed off with follow-up as outpatient in 4-6 weeks. DVT prophylaxis: SCDs Code Status: Full Discussed Condition With: RN, patient, pharmacy Discharge Planning: CM consult for short term rehab placement Progress Note: Quality VTE Deep Vein Thrombosis/Pulmonary Embolism Present on Admission: No _ (1) GI bleed Qualifiers: GI bleed type/associated pathology: Gastritis type: (2) Hypertension Qualifiers: Hypertension type: (3) Afib Qualifiers: Atrial fibrillation type:
--- NOTE | 2018-09-24 21:56 | P.PNNP ---
Subjective Interval history: Patient seen in AM, clinically same, no SOB. Physical Exam Vital signs: Vital Signs 09/23/18 23:35 09/24/18 00:00 09/24/18 03:45 Temperature 97.8 F 97.8 F Pulse Rate 75 67 73 Respiratory Rate 18 18 Blood Pressure 113/65 112/65 Pulse Oximetry 95 98 09/24/18 04:00 09/24/18 06:00 09/24/18 08:00 Temperature 97.2 F L Pulse Rate 75 73 Respiratory Rate 18 Blood Pressure 121/65 Pulse Oximetry 95 95 09/24/18 09:00 09/24/18 12:00 09/24/18 16:00 Temperature 97.7 F 98.3 F Pulse Rate 73 68 79 Respiratory Rate 18 18 Blood Pressure 115/55 L 116/60 Pulse Oximetry 98 95 09/24/18 19:00 Temperature 97.4 F L Pulse Rate 65 Respiratory Rate 18 Blood Pressure 117/61 Pulse Oximetry 96 Intake & Output 09/24/18 09/24/18 09/25/18 06:59 18:59 06:59 Intake Total 700 / 700 480 / 480 Output Total 0 / 0 Balance 700 / 700 480 / 480 Weight 76 kg Intake: IV 600 / 600 D10W Inj 1,000 ML @ 42 mls/hr 600 / 600 IV.CONT .[id number] [facility] Rx#: [id number] Oral 100 / 100 480 / 480 Output: Wound Drainage 0 / 0 # 1 Abdomen 0 / 0 Other: # Voids 0 0 Date of Last Bowel Movement 09/21/18 09/21/18 09/21/18 # Bowel Movements 0 0 Narrative: GENERAL: Well-developed, well-nourished male, no acute distress SKIN: Warm and dry. Bilateral lower extremity small scratches and scabs in various stages of healing, do not appear infected. HEAD: Atraumatic. Normocephalic. EYES: Pupils equal and round. No scleral icterus. No injection or drainage. ENT: No nasal bleeding or discharge. Mucous membranes pink and moist. NECK: Trachea midline. CARDIOVASCULAR: Irregular rhythm with 2/6 murmur. Left upper extremity fistula with positive bruit and thrill. RESPIRATORY: No accessory muscle use. Clear to auscultation. Breath sounds equal bilaterally. GASTROINTESTINAL: Abdomen soft, steri- strips dry, RUQ ALBA drain empty, + Bowel sounds. MUSCULOSKELETAL: Extremities without clubbing, cyanosis, or edema. No obvious deformities. NEUROLOGICAL: Awake, alert. No obvious cranial nerve deficits. Motor grossly within normal limits. Normal speech. PSYCHIATRIC: Appropriate mood and affect; insight and judgment normal. Assessment and Plan - Assessment (1) End-stage renal disease on hemodialysis Code(s): N18.6 - End stage renal disease; Z99.2 - Dependence on renal dialysis Status: Acute Plan: ESRD MWF HD was done yesterday. Monitor fluid and electrolytes. Avoid nephrotoxic agents. Monitor phosphorus intermittently, patient is on a binder. Avoid BP measurements or blood draws in L arm, AVF. (2) GI bleed Code(s): K92.2 - Gastrointestinal hemorrhage, unspecified Status: Acute Plan: s/p EGD, results reviewed. GI on the case. Patient had endoscopic ultrasound today then had ERCP with sphincterotomy and balloon extraction and stent placement and biopsy. Cholecystectomy done yesterday. (3) Afib Code(s): I48.91 - Unspecified atrial fibrillation Status: Acute Plan: On metoprolol. Coumadin can be restarted.
[2018-09-25] MEDS: Pantoprazole Inj 40 MG Vial IV.PUSH SCH ×2 (03:16→18:30)
[2018-09-25 06:03] LABS: Baso % (Auto) 0.6 % (0.0-2.0); Eos # (Auto) 0.2 th/mm3 (0.0-0.4); Eos % (Auto) 3.7 % (0.0-4.0); Hematocrit 34.8 % (39.0-51.0); Hemoglobin 11.8 gm/dL (13.0-17.0); Lymph # (Auto) 0.5 th/mm3 (1.0-4.8); Mean Corpuscular HGB Conc 33.8 % (32.0-36.0); Mean Corpuscular Hemoglobin 31.7 pg (27.0-34.0); Mean Corpuscular Volume 93.6 fL (80.0-100.0); Mono # (Auto) 0.5 th/mm3 (0.0-0.9); Neut # (Auto) 5.5 th/mm3 (1.8-7.7); Neut % (Auto) 79.7 % (16.0-70.0); Platelet Count 200 th/mm3 (150-450); Red Blood Count 3.71 mil/mm3 (4.50-5.90); Red Cell Distribution Width 16.1 % (11.6-17.2); White Blood Count 6.8 th/mm3 (4.0-11.0)
[2018-09-25 06:06] LABS: INR 1.4 Ratio; Prothrombin Time 13.8 sec (9.8-11.6)
[2018-09-25 06:29] LABS: Calcium 8.1 mg/dL (8.5-10.1); Carbon Dioxide 30.7 meq/L (21.0-32.0); Potassium 4.3 meq/L (3.5-5.1)
[2018-09-25] MEDS: Senna/Docusate Sodium 8.6/50 MG Tablet PO SCH ×2 (07:45→22:29)
[2018-09-25] MEDS: Metoprolol Tartrate 25 MG Tablet PO SCH ×2 (07:45→22:29)
[2018-09-25] MEDS: Digoxin 125 MCG Tablet PO SCH (07:45)
[2018-09-25] MEDS: Citalopram 20 MG Tablet PO SCH (07:45)
--- NOTE | 2018-09-25 10:20 | P.PNIM ---
Subjective Interval history: In nad. No sob , satting well on nasal canula. No n/v/d/c. No fever or chills. Physical Exam Vital signs: Last Vital Signs Temp 98 F 09/25/18 08:00 Pulse 65 09/25/18 08:00 Resp 18 09/25/18 08:00 BP 125/70 09/25/18 08:00 Pulse Ox 98 09/25/18 08:00 Intake & Output 09/23/18 09/24/18 09/25/18 09/26/18 06:59 06:59 06:59 06:59 Intake Total 1490 / 1490 1540 / 1540 960 / 960 Output Total 150 / 150 1999 Balance 1340 / 1340 -460 / -460 960 / 960 Weight 78.6 kg 76 kg 74.4 kg Narrative: GENERAL: Well-developed, well-nourished male, no acute distress CARDIOVASCULAR: Irregular rhythm with 2/6 murmur. Left upper extremity fistula with positive bruit and thrill. RESPIRATORY: No accessory muscle use. Clear to auscultation. Breath sounds equal bilaterally. GASTROINTESTINAL: Abdomen soft, steri- strips dry, RUQ ALBA drain empty, + Bowel sounds. MUSCULOSKELETAL: Extremities without clubbing, cyanosis, or edema. NEUROLOGICAL: Awake, alert. No obvious cranial nerve deficits. Motor grossly within normal limits. Normal speech. PSYCHIATRIC: Appropriate mood and affect; insight and judgment normal. Results Labs CBC & Chem 7: 09/25/18 05:23 09/25/18 05:23 Assessment and Plan (1) GI bleed: Code(s): K92.2 - Gastrointestinal hemorrhage, unspecified Status: Acute (2) End-stage renal disease on hemodialysis: Code(s): N18.6 - End stage renal disease; Z99.2 - Dependence on renal dialysis Status: Acute (3) Hypertension: Code(s): I10 - Essential (primary) hypertension Status: Acute (4) Afib: Code(s): I48.91 - Unspecified atrial fibrillation Status: Acute (5) Polycythemia: Code(s): D75.1 - Secondary polycythemia Status: Acute (6) Choledocholithiasis: Code(s): K80.50 - Calculus of bile duct without cholangitis or cholecystitis without obstruction Status: Acute Plan This patient is a 63 y/o male with a dx of ESRD on MWF, a fib on coumadin, HTN, Last HD on Wednesday through left upper ext AVF. Patient says he has been having black stools for the past month but did not want to come to the hospital. Yesterday he had an episode of black diarrhea and decided to come into the ED for evaluation. He says he has also been feeling weak. In the ED he was found to be hypotensive. INR found to be supratherapeutic at 4.8. Supratherapeutic INR with likely Upper GI Bleed -GI consulted, EGD done 09/13 -ulcer; biopsies taken. GI recommending no anticoagulation A. fib; risk of clot currently outweighs risk of bleed so anticoagulation was resumed. -s/p EUS and ERCP 09/19 status post placement of internal biliary stent. Biopsies taken with recommendations for cholecystectomy, diet advanced to clear liquids, will need ERCP in 3 months to remove stent, follow-up with GI in 3-4 weeks. -INR 1.5 -Coumadin dosing per pharmacy Cholelithiasis -General surgery following, s/p lap-cholecystectomy 09/22, diet advanced, no N/V /D, or pain -J/P to be removed today Poor PO intake -Nepro supplementation with meal trays Hypoglycemia, recurrent -Patient with a history of ongoing hypoglycemia; may need endocrinology workup as outpatient -Blood sugars 70-80's, monitor closely as patient currently with poor PO intake -may need to restart IV fluids if BS continues to drop A. fib, rate controlled -Continue digoxin and BB. -Anticoagulated on Coumadin, pharmacy to dose and monitor -No cardiac complaints, continue to monitor. ESRD on HD -Nephrology following, appreciate assistance. 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 -Noah 2 mutation negative in the past, recheck pending. Hematology suspects polycythemia is reactive, no treatment indicated. -Hematology has signed off with follow-up as outpatient in 4-6 weeks. DVT prophylaxis: SCDs Code Status: Full Discussed Condition With: RN, patient, pharmacy Discharge Planning: CM consult for short term rehab placement Progress Note: Quality VTE Deep Vein Thrombosis/Pulmonary Embolism Present on Admission: No _ (1) GI bleed Qualifiers: GI bleed type/associated pathology: Gastritis type: (2) Afib Qualifiers: Atrial fibrillation type: (3) Hypertension Qualifiers: Hypertension type:
--- NOTE | 2018-09-25 10:32 | P.PNGS ---
Subjective Patient reports: no new complaints, feels better, bowel movement Physical Exam Vital signs: Vital Signs 09/24/18 12:00 09/24/18 16:00 09/24/18 19:00 Temperature 97.7 F 98.3 F 97.4 F L Pulse Rate 68 79 65 Respiratory Rate 18 18 18 Blood Pressure 115/55 L 116/60 117/61 Pulse Oximetry 98 95 96 09/24/18 20:00 09/24/18 23:50 09/25/18 03:25 Temperature 98.0 F 98.1 F Pulse Rate 75 74 81 Respiratory Rate 18 18 Blood Pressure 115/71 109/64 Pulse Oximetry 92 L 92 L 09/25/18 04:13 09/25/18 08:00 Temperature 98 F Pulse Rate 78 65 Respiratory Rate 18 Blood Pressure 125/70 Pulse Oximetry 98 Intake & Output 09/24/18 09/25/18 09/25/18 18:59 06:59 18:59 Intake Total 480 / 480 480 / 480 Balance 480 / 480 480 / 480 Weight 74.4 kg Intake: Oral 480 / 480 480 / 480 Other: # Voids 0 0 Date of Last Bowel Movement 09/21/18 09/21/18 09/21/18 # Bowel Movements 0 0 - Constitutional no acute distress - Routine Abdominal Exam Present: soft, normoactive bowel sounds. Absent: tenderness, distended, rebound , guarding Results - Labs 09/25/18 05:23 09/25/18 05:23 Laboratory Results - last 24 hr 09/24/18 09/24/18 09/24/18 12:58 16:53 23:56 WBC RBC Hgb Hct MCV MCH MCHC RDW Plt Count MPV Neut % (Auto) Lymph % (Auto) [place] % (Auto) Eos % (Auto) Baso % (Auto) Neut # (Auto) Lymph # (Auto) [place] # (Auto) Eos # (Auto) Baso # (Auto) WBC Differential Differential Comment PT INR Sodium Potassium Chloride Carbon Dioxide Anion Gap BUN Creatinine Estimated GFR POC Glucose 82 99 88 Random Glucose Calcium 09/25/18 09/25/18 09/25/18 05:19 05:23 05:23 WBC 6.8 RBC 3.71 L Hgb 11.8 L Hct 34.8 L MCV 93.6 MCH 31.7 MCHC 33.8 RDW 16.1 Plt Count 200 MPV 7.0 Neut % (Auto) 79.7 H Lymph % (Auto) 8.0 L [place] % (Auto) 8.0 Eos % (Auto) 3.7 Baso % (Auto) 0.6 Neut # (Auto) 5.5 Lymph # (Auto) 0.5 L [place] # (Auto) 0.5 Eos # (Auto) 0.2 Baso # (Auto) 0.0 WBC Differential . Differential Comment Auto diff final PT 13.8 H INR 1.4 Sodium Potassium Chloride Carbon Dioxide Anion Gap BUN Creatinine Estimated GFR POC Glucose 91 Random Glucose Calcium 09/25/18 05:23 WBC RBC Hgb Hct MCV MCH MCHC RDW Plt Count MPV Neut % (Auto) Lymph % (Auto) [place] % (Auto) Eos % (Auto) Baso % (Auto) Neut # (Auto) Lymph # (Auto) [place] # (Auto) Eos # (Auto) Baso # (Auto) WBC Differential Differential Comment PT INR Sodium 137 Potassium 4.3 Chloride 97 L Carbon Dioxide 30.7 Anion Gap 9 BUN 37 H Creatinine 8.15 H Estimated GFR 7 L POC Glucose Random Glucose 87 Calcium 8.1 L - Imaging Imaging: ITS Impressions GI Procedure 09/19/18 00:00 CONCLUSION: Status post placement of an internal biliary stent. Assessment and Plan - Assessment (1) Choledocholithiasis Code(s): K80.50 - Calculus of bile duct without cholangitis or cholecystitis without obstruction Status: Acute - Plan 63yo male s/p lap [place] - tolerating PO, pain controlled - ok to Dc from surgery standpoint and restart anticoagulation
--- NOTE | 2018-09-25 13:03 | P.PNNP ---
Subjective Interval history: Patient is alert, no SOB, with nasal cannula. Physical Exam Vital signs: Vital Signs 09/24/18 16:00 09/24/18 19:00 09/24/18 20:00 Temperature 98.3 F 97.4 F L Pulse Rate 79 65 75 Respiratory Rate 18 18 Blood Pressure 116/60 117/61 Pulse Oximetry 95 96 09/24/18 23:50 09/25/18 03:25 09/25/18 04:13 Temperature 98.0 F 98.1 F Pulse Rate 74 81 78 Respiratory Rate 18 18 Blood Pressure 115/71 109/64 Pulse Oximetry 92 L 92 L 09/25/18 08:00 09/25/18 12:00 Temperature 98 F 97.3 F L Pulse Rate 65 76 Respiratory Rate 18 18 Blood Pressure 125/70 105/67 Pulse Oximetry 98 94 L Intake & Output 09/24/18 09/25/18 09/25/18 18:59 06:59 18:59 Intake Total 480 / 480 480 / 480 Balance 480 / 480 480 / 480 Weight 74.4 kg Intake: Oral 480 / 480 480 / 480 Other: # Voids 0 0 Date of Last Bowel Movement 09/21/18 09/21/18 09/21/18 # Bowel Movements 0 0 Narrative: GENERAL: Well-developed, well-nourished male, no acute distress CARDIOVASCULAR: Irregular rhythm with 2/6 murmur. Left upper extremity fistula with positive bruit and thrill. RESPIRATORY: No accessory muscle use. Clear to auscultation. Breath sounds equal bilaterally. GASTROINTESTINAL: Abdomen soft, steri- strips dry, RUQ ALBA drain empty, + Bowel sounds. MUSCULOSKELETAL: Extremities without clubbing, cyanosis, or edema. NEUROLOGICAL: Awake, alert. No obvious cranial nerve deficits. Motor grossly within normal limits. Normal speech. PSYCHIATRIC: Appropriate mood and affect; insight and judgment normal. Assessment and Plan - Assessment (1) End-stage renal disease on hemodialysis Code(s): N18.6 - End stage renal disease; Z99.2 - Dependence on renal dialysis Status: Acute Plan: ESRD MWF Monitor fluid and electrolytes. Avoid nephrotoxic agents. Monitor phosphorus intermittently, patient is on a binder, last Po4 was normal. Avoid BP measurements or blood draws in L arm, AVF. HD will be done again today, due to Holiday doing on [place]. (2) GI bleed Code(s): K92.2 - Gastrointestinal hemorrhage, unspecified Status: Acute Plan: s/p EGD, results reviewed. GI on the case. Patient had endoscopic ultrasound today then had ERCP with sphincterotomy and balloon extraction and stent placement and biopsy. Cholecystectomy done yesterday. (3) Afib Code(s): I48.91 - Unspecified atrial fibrillation Status: Acute Plan: On metoprolol. Coumadin can be restarted.
[2018-09-26] MEDS: Pantoprazole Inj 40 MG Vial IV.PUSH SCH ×2 (03:40→16:43)
[2018-09-26 05:14] LABS: Baso % (Auto) 0.8 % (0.0-2.0); Eos # (Auto) 0.2 th/mm3 (0.0-0.4); Eos % (Auto) 3.7 % (0.0-4.0); Hematocrit 36.4 % (39.0-51.0); Lymph # (Auto) 0.6 th/mm3 (1.0-4.8); Mean Corpuscular HGB Conc 32.9 % (32.0-36.0); Mean Corpuscular Hemoglobin 31.3 pg (27.0-34.0); Mean Corpuscular Volume 95.2 fL (80.0-100.0); Mean Platelet Volume 7.4 fL (7.0-11.0); Mono # (Auto) 0.6 th/mm3 (0.0-0.9); Mono % (Auto) 10.9 % (0.0-8.0); Neut # (Auto) 4.1 th/mm3 (1.8-7.7); Neut % (Auto) 74.6 % (16.0-70.0); Platelet Count 200 th/mm3 (150-450); Red Blood Count 3.82 mil/mm3 (4.50-5.90); White Blood Count 5.6 th/mm3 (4.0-11.0)
[2018-09-26 05:21] LABS: INR 1.6 Ratio; Prothrombin Time 15.9 sec (9.8-11.6)
[2018-09-26 05:42] LABS: Calcium 8.2 mg/dL (8.5-10.1); Carbon Dioxide 32.9 meq/L (21.0-32.0); Potassium 3.8 meq/L (3.5-5.1)
[2018-09-26] MEDS: Digoxin 125 MCG Tablet PO SCH (08:12)
[2018-09-26] MEDS: Citalopram 20 MG Tablet PO SCH (08:12)
[2018-09-26] MEDS: Metoprolol Tartrate 25 MG Tablet PO SCH (08:12)
[2018-09-26] MEDS: Senna/Docusate Sodium 8.6/50 MG Tablet PO SCH (08:12)
--- NOTE | 2018-09-26 09:02 | P.PNNP ---
Subjective Interval history: Patient was seen, no distress, no complaints. Patient dialyzed 09/25 due to holiday schedule, 2 L removed. <Lidia Gleason - Last Filed: 09/26/18 08:57> Physical Exam Vital signs: Vital Signs 09/25/18 12:00 09/25/18 20:02 09/25/18 21:09 Temperature 97.3 F L 98.2 F Pulse Rate 76 90 77 Respiratory Rate 18 18 Blood Pressure 105/67 108/61 Pulse Oximetry 94 L 94 L 09/26/18 00:00 09/26/18 00:03 09/26/18 04:00 Temperature 97.8 F 97.6 F Pulse Rate 88 74 75 Respiratory Rate 18 Blood Pressure 121/64 101/54 L Pulse Oximetry 96 92 L 09/26/18 04:02 Temperature Pulse Rate 72 Respiratory Rate Blood Pressure Pulse Oximetry Intake & Output 09/25/18 09/26/18 09/26/18 18:59 06:59 18:59 Intake Total 840 / 840 240 / 240 Output Total 1999 Balance -1160 / -1160 240 / 240 Intake: Oral 840 / 840 240 / 240 Output: Urine 0 / 0 Hemodialysis Amount 1999 Other: # Voids 2 Date of Last Bowel Movement 09/21/18 09/21/18 # Bowel Movements 0 Narrative: GENERAL: no acute distress CARDIOVASCULAR: Irregular rhythm with 2/6 murmur. Left upper extremity fistula with positive bruit and thrill. RESPIRATORY: No accessory muscle use. Clear to auscultation. Breath sounds equal bilaterally. GASTROINTESTINAL: Abdomen soft, steri- strips dry, RUQ ALBA drain empty, + Bowel sounds. MUSCULOSKELETAL: Extremities without clubbing, cyanosis, or edema. NEUROLOGICAL: Awake, alert. No obvious cranial nerve deficits. PSYCHIATRIC: Appropriate mood and affect. <Lidia Gleason - Last Filed: 09/26/18 08:57> Assessment and Plan - Assessment (1) End-stage renal disease on hemodialysis Code(s): N18.6 - End stage renal disease; Z99.2 - Dependence on renal dialysis Status: Acute Plan: ESRD MWF. Patient dialyzed 09/25 due to holiday schedule, 2 L removed. Monitor fluid and electrolytes. Avoid nephrotoxic agents. Monitor phosphorus intermittently, patient is on a binder. Avoid BP measurements or blood draws in L arm, AVF. Can be discharged from a renal standpoint. (2) GI bleed Code(s): K92.2 - Gastrointestinal hemorrhage, unspecified Status: Acute Plan: s/p Cholecystectomy. GI on the case. (3) Afib Code(s): I48.91 - Unspecified atrial fibrillation Status: Acute Plan: On metoprolol. Coumadin restarted 09/24. <Lidia Gleason - Last Filed: 09/26/18 08:57> - Assessment (1) End-stage renal disease on hemodialysis Code(s): N18.6 - End stage renal disease; Z99.2 - Dependence on renal dialysis Status: Acute (2) GI bleed Code(s): K92.2 - Gastrointestinal hemorrhage, unspecified Status: Acute (3) Afib Code(s): I48.91 - Unspecified atrial fibrillation Status: Acute - Attending Attestation patient was seen and examined. He is doing well, can be discharged from renal standpoint. <Varun Chisholm - Last Filed: 09/27/18 12:13>
[2018-09-26 09:28] VITALS: RESP 20; O2SAT 94
--- NOTE | 2018-09-26 13:11 | P.PNIM ---
Subjective Interval history: In nad. No fever or chills. No n/v/d/c. Has no pain .No sob. He is sattign well on room air. Physical Exam Vital signs: Last Vital Signs Temp 98.0 F 09/26/18 08:00 Pulse 79 09/26/18 08:00 Resp 20 09/26/18 08:00 BP 149/76 H 09/26/18 08:00 Pulse Ox 94 L 09/26/18 08:00 Intake & Output 09/24/18 09/25/18 09/26/18 09/27/18 06:59 06:59 06:59 06:59 Intake Total 1540 / 1540 960 / 960 1080 / 1080 Output Total 1999 Balance -460 / -460 960 / 960 -920 / -920 Weight 76 kg 74.4 kg Narrative: GENERAL: no acute distress CARDIOVASCULAR: Irregular rhythm with 2/6 murmur. Left upper extremity fistula with positive bruit and thrill. RESPIRATORY: No accessory muscle use. Clear to auscultation. Breath sounds equal bilaterally. GASTROINTESTINAL: Abdomen soft, steri- strips dry, RUQ ALBA drain empty, + Bowel sounds. MUSCULOSKELETAL: Extremities without clubbing, cyanosis, or edema. NEUROLOGICAL: Awake, alert. No obvious cranial nerve deficits. PSYCHIATRIC: Appropriate mood and affect. Results Labs CBC & Chem 7: 09/26/18 04:46 09/26/18 04:46 Assessment and Plan (1) GI bleed: Code(s): K92.2 - Gastrointestinal hemorrhage, unspecified Status: Acute (2) End-stage renal disease on hemodialysis: Code(s): N18.6 - End stage renal disease; Z99.2 - Dependence on renal dialysis Status: Acute (3) Hypertension: Code(s): I10 - Essential (primary) hypertension Status: Acute (4) Afib: Code(s): I48.91 - Unspecified atrial fibrillation Status: Acute (5) Polycythemia: Code(s): D75.1 - Secondary polycythemia Status: Acute (6) Choledocholithiasis: Code(s): K80.50 - Calculus of bile duct without cholangitis or cholecystitis without obstruction Status: Acute Plan This patient is a 63 y/o male with a dx of ESRD on MWF, a fib on coumadin, HTN, Last HD on Wednesday through left upper ext AVF. Patient says he has been having black stools for the past month but did not want to come to the hospital. Yesterday he had an episode of black diarrhea and decided to come into the ED for evaluation. He says he has also been feeling weak. In the ED he was found to be hypotensive. INR found to be supratherapeutic at 4.8. Supratherapeutic INR with likely Upper GI Bleed -GI consulted, EGD done 09/13 -ulcer; biopsies taken. GI recommending no anticoagulation A. fib; risk of clot currently outweighs risk of bleed so anticoagulation was resumed. -s/p EUS and ERCP 09/19 status post placement of internal biliary stent. Biopsies taken with recommendations for cholecystectomy, diet advanced to clear liquids, will need ERCP in 3 months to remove stent, follow-up with GI in 3-4 weeks. -INR 1.5 -Coumadin dosing per pharmacy Cholelithiasis -General surgery following, s/p lap-cholecystectomy 09/22, diet advanced, no N/V /D, or pain -J/P to be removed today Poor PO intake -Nepro supplementation with meal trays Hypoglycemia, recurrent -Patient with a history of ongoing hypoglycemia; may need endocrinology workup as outpatient -Blood sugars 70-80's, monitor closely as patient currently with poor PO intake -may need to restart IV fluids if BS continues to drop A. fib, rate controlled -Continue digoxin and BB. -Anticoagulated on Coumadin, pharmacy to dose and monitor -No cardiac complaints, continue to monitor. ESRD on HD -Nephrology following, appreciate assistance. 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 -Noah 2 mutation negative in the past, recheck pending. Hematology suspects polycythemia is reactive, no treatment indicated. -Hematology has signed off with follow-up as outpatient in 4-6 weeks. DVT prophylaxis: SCDs Code Status: Full Discussed Condition With: RN, patient, pharmacy Discharge Planning: CM consult for short term rehab placement Progress Note: Quality VTE Deep Vein Thrombosis/Pulmonary Embolism Present on Admission: No _ (1) GI bleed Qualifiers: GI bleed type/associated pathology: Gastritis type: (2) Afib Qualifiers: Atrial fibrillation type: (3) Hypertension Qualifiers: Hypertension type:
[2018-09-26 13:46] VITALS: BP 117/66; TEMP 98.2
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
[2018-09-26 15:19] VITALS: PULSE 86
--- NOTE | 2018-09-26 15:39 | P.DCO ---
Diagnosis (1) GI bleed: Status: Acute (2) End-stage renal disease on hemodialysis: Status: Acute (3) Hypertension: Status: Acute (4) Afib: Status: Acute (5) Polycythemia: Status: Acute (6) Choledocholithiasis: Status: Acute Physical Therapy Order: Evaluate and treat Occupational Therapy Order: Evaluate and treat Home Health Nursing Order: Medical education, Signs/symptoms of disease process, Medication education-adverse effect and Nursing assessment with vital signs Case Management Consult Case Management Consult-Home Health: Yes I have seen patient Zak Looney on 09/26/18. My clinical findings support the need for the requested home health care services because: Limited mobility due to disease progression, Medication compliance is questionable and Limited ability to care for self I certify that my clinical findings support that this patient is homebound because: Post-op weakness and Unsteady gait/balance _ (1) GI bleed Qualifiers: GI bleed type/associated pathology: Gastritis type: (2) Hypertension Qualifiers: Hypertension type: (3) Afib Qualifiers: Atrial fibrillation type:
== END 2018-09-26 17:55 | DRG 356 ==
LOC: NEPE 08:50 → NEDA 11:50 → INTOOBSV 11:50 → OBSVTOIN 11:50 → NEDA 12:51 → N06 13:00
PROVIDERS: ADMIT Hospitalist; ATTEND Hospitalist
PROC: PANENDO (2018-09-13 09:10)
DX: Z79.01 Long term (current) use of anticoagulants; E87.5 Hyperkalemia; Z79.899 Other long term (current) drug therapy; I47.2 Ventricular tachycardia; K92.2 Gastrointestinal hemorrhage, unspecified; K29.80 Duodenitis without bleeding; I48.91 Unspecified atrial fibrillation; I95.9 Hypotension, unspecified; K76.89 Other specified diseases of liver; K29.50 Unspecified chronic gastritis without bleeding; N18.6 End stage renal disease; D75.1 Secondary polycythemia; R19.7 Diarrhea, unspecified; I13.2 Hypertensive heart and chronic kidney disease with heart failure and with stage 5 chronic kidney disease, or end stage renal disease; R26.81 Unsteadiness on feet; Z85.828 Personal history of other malignant neoplasm of skin; K80.63 Calculus of gallbladder and bile duct with acute cholecystitis with obstruction; L89.613 Pressure ulcer of right heel, stage 3; I25.10 Atherosclerotic heart disease of native coronary artery without angina pectoris; K76.0 Fatty (change of) liver, not elsewhere classified; Z99.2 Dependence on renal dialysis; R79.1 Abnormal coagulation profile; E16.2 Hypoglycemia, unspecified; Z87.11 Personal history of peptic ulcer disease; K31.7 Polyp of stomach and duodenum; I50.9 Heart failure, unspecified; Z86.73 Personal history of transient ischemic attack (TIA), and cerebral infarction without residual deficits
CPT/HCPCS: 36430; 43259; 74330; 80048; 80053; 80074; 80162; 81206; 81207; 81270; 81401; 82272; 82668; 82728; 82947; 82948; 82962; 83540; 83550; 83735; 84100; 84132; 84484; 85014; 85018; 85025; 85027; 85610; 85651; 85652; 85730; 86140; 86850; 86900; 86901; 86927; 87205; 87328; 87329; 87493; 87506; 88304; 88305; 88312; 90761; 90774; 90784; 90935; 93005; 96361; 96374; 97110; 97116; 97162; 99285; A4646; C1769; C2625; C8952; C9113; C9503; G8987; G8988; J0690; J1610; J2175; J2270; J3010; J7030; J7040; J7050; J7120; P9017; Q9950; Q9965; Q9967